=== PATIENT | male | born 1955 | race Caucasian/White ===

== ENCOUNTER 2016-11-25 19:49 | Inpatient (IN) | payer MEDICAID ==
[~2016-11-25] VITALS: Ht 167.6 cm; Wt 62.4 kg
[2016-11-25 19:40] VITALS: O2SAT 94
[~2016-11-25 19:49] MED LIST: CIPR500T4 PO; CYCL-36 PO; DILA2TAB2 OR; TRAM50TA PO
[2016-11-25] MEDS ORDERED: LIDOCAINE 2%/EPINEPHrine 1:100,000 50ML MDV ONE (20:18)
[2016-11-25] MEDS ORDERED: SUCCINYLCHOLINE CHLORIDE 200 MG/10 ML VIAL ONE (20:19)
[2016-11-25] MEDS ORDERED: ETOMIDATE 20 MG/10 ML VIAL ONE (20:19)
[2016-11-25 20:25] LABS: HEMATOCRIT 37.8 % (39.0-51.0); MEAN CELL VOLUME 105.8 FL (80.0-100.0); MEAN CORPUSCULAR HEMOGLOBIN 37.7 PG (27.0-34.0); MEAN CORPUSCULAR HGB CONC 35.6 % (32.0-36.0); PLATELET COUNT 195 TH/MM3 (150-450); RED BLOOD COUNT 3.57 MIL/MM3 (4.50-5.90); WHITE BLOOD COUNT 19.5 TH/MM3 (4.0-11.0)
--- NOTE | 2016-11-25 20:25 | RADRPT ---
EXAM DATE/TIME: 11/25/2016 19:44 [facility] COMPARISON: No previous studies available for comparison. INDICATIONS : Trauma alert, fall off ladder. MEDICAL HISTORY : None. SURGICAL HISTORY : None. ENCOUNTER: Initial ACUITY: 1 day PAIN SCORE: 10/10 LOCATION: Bilateral pelvis. FINDINGS: There are fractures of the left side of the sacrum and bilateral superior and inferior pubic rami. Di splacement appears minimal to mild. No fracture or subluxation seen of either hip. CONCLUSION: Bilateral pubic rami and left sacral fractures. Neel Moyer MD on November 25, 2016 at 20:22 Board Certified Radiologist. This report was verified electronically.
--- NOTE | 2016-11-25 20:26 | RADRPT ---
EXAM DATE/TIME: 11/25/2016 19:44 [facility] COMPARISON: No previous studies available for comparison. INDICATIONS : Trauma alert, fall off ladder. MEDICAL HISTORY : None. SURGICAL HISTORY : None. ENCOUNTER: Initial ACUITY: 1 day PAIN SCORE: 10/10 LOCATION: Bilateral chest FINDINGS: There are fractures posteriorly of the left sixth, seventh, eighth and ninth ribs. The left sixth and seventh rib fractures are considerably displaced superiorly. There is consolidation/contusion of the left lung base. Right lung clear. I don't clearly see a pneumothorax on either side. Chest CT to fol low. CONCLUSION: Multiple posterior left rib fractures with a left base parenchymal contusion. Neel Moyer MD on November 25, 2016 at 20:23 Board Certified Radiologist. This report was verified electronically.
[2016-11-25 20:27] LABS: I-STAT POTASSIUM 3.6 MMOL/L (3.5-4.9)
[2016-11-25 20:28] LABS: HEMO FLAGS AUTO DIFF
--- NOTE | 2016-11-25 20:30 | RADRPT ---
EXAM DATE/TIME: 11/25/2016 20:06 [facility] COMPARISON: No previous studies available for comparison. INDICATIONS : Trauma, fall from twenty feet. RADIATION DOSE: 52.17 CTDIvol (mGy) MEDICAL HISTORY : Non-responsive. SURGICAL HISTORY : Non-responsive. ENCOUNTER: Initial ACUITY: 1 day PAIN SCALE: Non-responsive LOCATION: cranial TECHNIQUE: Multiple contiguous axial images were obtained of the head. Using automated exposure control and adj ustment of the mA and/or kV according to patient size, radiation dose was kept as low as reasonably a chievable to obtain optimal diagnostic quality images. FINDINGS: Study is motion degraded. CEREBRUM: The ventricles are normal for age. No evidence of midline shift, mass lesion, hemorrhage or acute in farction. No extra-axial fluid collections are seen. POSTERIOR FOSSA: The cerebellum and brainstem are intact. The 4th ventricle is midline. The cerebellopontine angle i s unremarkable. EXTRACRANIAL: The visualized portion of the orbits is intact. SKULL: The calvaria is intact. No evidence of skull fracture. CONCLUSION: Motion degraded study without convincing evidence of acute intracranial hemorrhage. Followup noncontr asted head CT suggested in 24 hours. Neel Moyer MD on November 25, 2016 at 20:28 Board Certified Radiologist. This report was verified electronically.
[2016-11-25] MEDS ORDERED: IOHEXOL 350 MG/ML 10 ML VIAL (for RAD DIAG) IV ONE (20:32)
--- NOTE | 2016-11-25 20:35 | RADRPT ---
EXAM DATE/TIME: 11/25/2016 20:06 [facility] COMPARISON: No previous studies available for comparison. INDICATIONS : Trauma alert; fall from twenty feet. RADIATION DOSE: 19.10 CTDIvol (mGy) MEDICAL HISTORY : Non-responsive. SURGICAL HISTORY : Fusion, cervical. ENCOUNTER: Initial ACUITY: 1 day PAIN SCALE: Non-responsive LOCATION: neck TECHNIQUE: Volumetric scanning of the cervical spine was performed. Multiplanar reconstructions in the sagittal, coronal and oblique axial planes were performed. Using automated exposure control and adjustment o f the mA and/or kV according to patient size, radiation dose was kept as low as reasonably achievable to obtain optimal diagnostic quality images. FINDINGS: No fracture or subluxation demonstrated of the cervical spine. Vertebral bodies have normal height. Patient has had discectomy and fusion procedure with anterior instrumentation at C3/C4, C4/C5 and C5/ C6, each level is solidly fused in normal alignment. Severe disc space narrowing with a very large posterior disc osteophyte complex seen at C6/C7 causing severe spinal stenosis. There is severe bilateral foraminal stenosis at this level as well. Small posterior disc protrusion seen at C7/T1 with mild spinal stenosis, age indeterminate. CONCLUSION: 1. No fracture or subluxation of the cervical spine. 2. Degenerative changes with a chronic appearing disc osteophyte complex and uncovertebral/facet oste oarthritis causing severe spinal and bilateral foraminal stenosis at C6-C7. 3. Small, age-indeterminate posterior disc protrusion at C7/T1 causing mild spinal stenosis. Neel Moyer MD on November 25, 2016 at 20:31 Board Certified Radiologist. This report was verified electronically.
[2016-11-25 20:37] LABS: APTT (PATIENT) 22.6 SEC (24.3-30.1); PROTHROMBIN TIME - PATIENT 11.4 SEC (9.8-11.6)
[2016-11-25] MEDS: LACTATED RINGER'S 1000 ML INJ 1,000 ML IV SCH (20:40)
[2016-11-25] MEDS ORDERED: MAGNESIUM HYDROXIDE SUSP 30 ML CUP PO PRN (20:45)
[2016-11-25] MEDS ORDERED: CHLORHEXIDINE GLUCONATE 2 % 1 PACK (2 CLOTHS) TOP PRN (20:45)
[2016-11-25] MEDS ORDERED: MISCELLANEOUS NURSING INFORMATION XX SCH (20:45)
--- NOTE | 2016-11-25 20:49 | RADRPT ---
EXAM DATE/TIME: 11/25/2016 20:10 [facility] COMPARISON: No previous studies available for comparison. INDICATIONS : Trauma alert; fall from twenty feet. IV CONTRAST: 100 cc Omnipaque 350 (iohexol) IV ; Cumulative dose for multiple exams. RADIATION DOSE: 17.57 CTDIvol (mGy) ; Combined studies - Thorax/Abdomen/Pelvis MEDICAL HISTORY : Non-responsive. SURGICAL HISTORY : Non-responsive. ENCOUNTER: Initial ACUITY: 1 day PAIN SCALE: Non-responsive LOCATION: chest TECHNIQUE: Volumetric scanning of the chest was performed. Using automated exposure control and adjustment of t he mA and/or kV according to patient size, radiation dose was kept as low as reasonably achievable to obtain optimal diagnostic quality images. FINDINGS: Fractures posteriorly and posterolaterally of the left fifth through 12th ribs. Seventh through 10th are considerably displaced. There is a parenchymal contusion of the left lower lobe. A moderate left pneumothorax is present. No tension. Only a small left hemothorax. Cardiomediastinum/great vessels within normal limits. Right lung clear. No right pneumothorax. CONCLUSION: Multiple left rib fractures with moderate left pneumothorax, tiny left hemothorax and probable contus ion of the left lower lobe. Neel Moyer MD on November 25, 2016 at 20:45 Board Certified Radiologist. This report was verified electronically.
[2016-11-25 20:54] LABS: BANDS 9 % (0-6); EOSINOPHILS 2 % (0-4); METAMYELOCYTES 1 % (0-1); NEUTROPHIL # MANUAL DIFF 14.8 TH/MM3 (1.8-7.7); POLYS (SEG NEUTROPHILS) 66 % (16-70); WBC DIFF SAMPLE 100
--- NOTE | 2016-11-25 20:54 | RADRPT ---
EXAM DATE/TIME: 11/25/2016 20:10 [facility] COMPARISON: No previous studies available for comparison. INDICATIONS : Trauma, fall from twenty feet. IV CONTRAST: 100 cc Omnipaque 350 (iohexol) IV ORAL CONTRAST: No oral contrast ingested. RADIATION DOSE: 17.57 CTDIvol (mGy) ; Combined studies - Thorax/Abdomen/Pelvis MEDICAL HISTORY : Non-responsive. SURGICAL HISTORY : Non-responsive. ENCOUNTER: Initial ACUITY: 1 day PAIN SCALE: Non-responsive LOCATION: abdomen TECHNIQUE: Volumetric scanning of the abdomen and pelvis was performed. Using automated exposure control and ad justment of the mA and/or kV according to patient size, radiation dose was kept as low as reasonably achievable to obtain optimal diagnostic quality images. FINDINGS: Liver, spleen, pancreas, adrenal glands and kidneys are all intact. No viscus rupture. The stomach is distended with fluid and debris. There are multiple left lower rib fractures. The left sacral ala and body has comminuted, mildly disp laced fracturing and extending to the left S2/3 foramen which appears mildly displaced. There are robyn ateral superior and inferior pubic ramus fractures. The left pubic bone fracture extends into the lef t acetabulum but nondisplaced. There is a small presacral and left iliopsoas hematoma. No intraperito flori fluid demonstrated. CONCLUSION: 1. No evidence of acute visceral or injury. 2. Fractures of the left body and ala of the sacrum with mildly displaced fracturing in the region of the left S2/S3 foramen. 3. Bilateral superior and inferior pubic rami fractures and a nondisplaced fracture of the left aceta bulum. 4. Small presacral and left iliopsoas hematomas. I don't see active bleeding. Neel Moyer MD on November 25, 2016 at 20:49 Board Certified Radiologist. This report was verified electronically.
[2016-11-25 20:56] LABS: OVALOCYTES 1+ (NORMAL); PLATELET ESTIMATE SMEAR NORMAL (NORMAL); PLATELET MORPHOLOGY NORMAL (NORMAL); SCAN/DIFF FINAL DIFF MANUAL; STOMATOCYTES 2+ (NORMAL)
--- NOTE | 2016-11-25 20:58 | RADRPT ---
EXAM DATE/TIME: 11/25/2016 20:10 [facility] COMPARISON: No previous studies available for comparison. INDICATIONS : Trauma alert; fall from twenty feet. RADIATION DOSE: CTDIvol (mGy) ; Reconstructed from previous dataset MEDICAL HISTORY : Non-responsive. SURGICAL HISTORY : None. ENCOUNTER: Initial ACUITY: 1 day PAIN SCALE: Non-responsive LOCATION: Paraspinal TECHNIQUE: Volumetric scanning of the thoracic spine was performed. Multiplanar reconstructions in the sagittal , coronal and oblique axial planes were performed. Using automated exposure control and adjustment o f the mA and/or kV according to patient size, radiation dose was kept as low as reasonably achievable to obtain optimal diagnostic quality images. FINDINGS: Left fifth through 12th ribs are fractured posteriorly and please refer to the chest CT report. The l eft transverse process of T12 has a minimally displaced fracture, series 304 image 149 and series 3 a 2 image 48. This extends into the left facet joint. Thoracic spine vertebral bodies are intact. No subluxations. No epidural hematoma seen. No fracture-a ssociated foraminal or spinal stenosis demonstrated. CONCLUSION: Left T12 transverse process and facet fracture, minimally displaced. Multiple left posterior rib frac tures and placed refer to the chest CT report. Thoracic vertebral bodies are intact. No subluxations. Neel Moyer MD on November 25, 2016 at 20:55 Board Certified Radiologist. This report was verified electronically.
--- NOTE | 2016-11-25 20:59 | PD ---
HPI Chief Complaint: Trauma (Alert) Time Seen by Provider: 20:42 Travel History International Travel<30 days: No Contact w/Intl Traveler<30days: No Traveled to known affect area: No History of Present Illness HPI Patient in his 60s was brought in as a trauma alert by air 1 helicopter from the scene. Patient was intoxicated and was up on a ladder about 20 feet when somehow he lost his footing and fell on his back on the ground. Unknown loss of consciousness although the report from the paramedics came as negative loss of consciousness. Patient does not remember. He was intoxicated. Patient was hemodynamically stable the entire transportation and reported GCS was 15. However patient was complaining of severe lower back pain and left-sided chest wall pain. Patient has history of chronic back pain and neck injury and surgery. I was present in the room waiting for the patient's arrival based on the radio call. When patient arrived GCS was 14. He was otherwise hemodynamically stable. He was and significant pain complaining of lower back and left sided pain. As per my understanding patient did not receive any pain medications en route. Air medic also said that his oxygen saturation dropped down to 85% on nasal cannula and he was switched to a nonrebreather after which his sats stayed above 95%. [facility] Past Medical History Narrative Medical List of his past medical history is reviewed from the nursing note. Herniated Disk: Yes Past Surgical History Other Surgery: Yes (cervical spine surgery) Social History Alcohol Use: Yes Tobacco Use: Yes Allergies-Medications (Allergen,Severity, Reaction): Coded Allergies: Penicillin (Verified Allergy, Unknown, 11/25/16) Comments List of his allergies reviewed from the nursing note. Narrative Medication Unknown Review of Systems ROS Limitations: Altered Mental Status Except as stated in HPI: all other systems reviewed are Neg Physical Exam Exam Limitations: Intoxication Narrative GENERAL: Slightly altered mental status but answering questions appropriately. Significant distress. Backboarded and collared. SKIN: Warm and dry. Multiple small superficial abrasions, dirty skin HEAD: Atraumatic. Normocephalic. EYES: Pupils equal and round. No scleral icterus. No injection or drainage. ENT: No nasal bleeding or discharge. Mucous membranes pink and moist. NECK: Trachea midline. No JVD. CARDIOVASCULAR: Regular rate and rhythm. No murmur appreciated. RESPIRATORY: No accessory muscle use. Clear to auscultation. Breath sounds equal bilaterally. Tenderness left lateral chest wall with crepitus GASTROINTESTINAL: Abdomen soft, non-tender, nondistended. Hepatic and splenic margins not palpable. MUSCULOSKELETAL: No obvious deformities. No clubbing. No cyanosis. No edema. Point tenderness in the thoracic and lumbar area. NEUROLOGICAL: Awake and alert. No obvious cranial nerve deficits. Motor grossly within normal limits. Normal speech. PSYCHIATRIC: Appropriate mood and affect; insight and judgment normal. Data Data Last Documented VS Vital Signs Date Time Temp Pulse Resp B/P Pulse Ox O2 Delivery O2 Flow Rate FiO2 11/25/16 19:40 94 6.00 11/25/16 19:40 Nasal Cannula Orders I-Stat Profile (11/25/16 19:51) I-Stat Creatinine (11/25/16 19:51) Complete Blood Count With Diff (11/25/16 19:51) Prothrombin Time / Inr (Pt) (11/25/16 19:51) Act Partial Throm Time (Ptt) (11/25/16 19:51) Type And Screen (11/25/16 19:51) Chest, Single Ap (11/25/16 19:51) Pelvis, Ap Only (Routine) (11/25/16 19:51) Ct Brain W/O Iv Contrast(Rout) (11/25/16 19:51) Ct Cerv Spine W/O Contrast (11/25/16 19:51) Ct Abd/Pel W Iv Contrast(Rout) (11/25/16 19:51) Ct Thorax/ Chest W Iv Contrast (11/25/16 19:51) Iv Access Insert/Monitor (11/25/16 19:51) Ecg Monitoring (11/25/16 19:51) Oximetry (11/25/16 19:51) Oxygen Administration (11/25/16 19:51) Fentanyl Inj (Fentanyl Inj) (11/25/16 19:57) Lidocai-Epi 2%-1:100,000 Inj (Xylocaine- (11/25/16 20:18) Etomidate Inj (Amidate Inj) (11/25/16 20:19) Succinylcholine Inj (Quelicin Inj) (11/25/16 20:19) Fentanyl Inj (Fentanyl Inj) (11/25/16 20:21) Ct Lumb Spine W/O Contrast (11/25/16 ) Ct Thor Spine W/O Contrast (11/25/16 ) Fentanyl Inj (Fentanyl Inj) (11/25/16 20:30) Iohexol 350 Inj (Omnipaque 350 Inj) (11/25/16 20:32) Chest, Single Ap (11/25/16 ) Admit Order (Ed Use Only) (11/25/16 20:42) Labs Laboratory Tests Test 11/25/16 19:50 White Blood Count 19.5 TH/MM3 Red Blood Count 3.57 MIL/MM3 Hemoglobin 13.5 GM/DL Bedside Hemoglobin 13.3 G/DL Hematocrit 37.8 % Bedside Hematocrit 39.0 % Mean Corpuscular Volume 105.8 FL Mean Corpuscular Hemoglobin 37.7 PG Mean Corpuscular Hemoglobin 35.6 % Concent Red Cell Distribution Width 12.0 % Platelet Count 195 TH/MM3 Mean Platelet Volume 8.9 FL Neutrophils (%) (Auto) % Lymphocytes (%) (Auto) % Monocytes (%) (Auto) % Eosinophils (%) (Auto) % Basophils (%) (Auto) % Neutrophils # (Auto) TH/MM3 Lymphocytes # (Auto) TH/MM3 Monocytes # (Auto) TH/MM3 Eosinophils # (Auto) TH/MM3 Basophils # (Auto) TH/MM3 CBC Comment AUTO DIFF Differential Total Cells 100 Counted Neutrophils % (Manual) 66 % Band Neutrophils % 9 % Lymphocytes % 15 % Monocytes % 7 % Eosinophils % 2 % Neutrophils # (Manual) 14.8 TH/MM3 Metamyelocytes 1 % Differential Comment FINAL DIFF MANUAL Platelet Estimate NORMAL Platelet Morphology Comment NORMAL Ovalocytes 1+ Stomatocytes 2+ Prothrombin Time 11.4 SEC Prothromb Time International 1.0 RATIO Ratio Activated Partial 22.6 SEC Thromboplast Time Bedside Sodium 136 MMOL/L Bedside Potassium 3.6 MMOL/L Bedside Chloride 97 MMOL/L Bedside Blood Urea Nitrogen 11 MG/DL Bedside Creatinine 0.7 MG/DL Bedside Glucose 149 MG/DL Blood Type O POSITIVE Antibody Screen NEGATIVE [facility] Medical Screen Exam Complete: Yes Emergency Medical Condition: Yes Medical Record Reviewed: Yes EKG Prior to Arrival: Yes Differential Diagnosis Intracranial bleed, cervical spine fracture, intrathoracic injury, intra- abdominal injury Narrative Course 8:30 PM I examined the patient alongside with the surgeon. Portable chest x- ray and pelvic x-ray was reviewed. Patient remained hemodynamically stable the entire time. Patient was taken over to the CT once he was rolled off the backboard and spine was palpated by the trauma surgeon. I went along with the patient to the CT since my FAST ultrasound was positive and I was concerned about patient's hemodynamic status. CT scan showed a large anterior left sided traumatic pneumothorax with multiple rib fractures and pelvic fracture with retroperitoneal hematoma. Patient was brought back to the trauma bay and plan was to put the chest tube. Patient was verbally told about the CAT scan findings and the need for the chest tube placement. Patient verbally agreed. Once again he remained hemodynamically stable. He was given 2 doses of IV 50 g of fentanyl for pain management. Once the chest tube was inserted and secured and attached to the Pleur-evac portable chest x-ray was taken for chest tube placement. I'm waiting for the portable chest x-ray report. Patient has been admitted to the ICU under the trauma surgeon service. 8:59 PM I just reviewed the chest x-ray and seems like the placement is good. Critical Care Narrative Aggregate critical care time was 45 minutes. Time to perform other separately billable procedures was not included in the critical care time. My time did not include minutes spent treating any other patients simultaneously or on activities that did not directly contribute to the patient's treatment. The services I provided to this patient were to treat and/or prevent clinically significant deterioration that could result in: Trauma alert, follows for more than 20 feet height, multiple rib fractures, traumatic pneumothorax, pelvic fractures I provided critical care services requiring my management, as noted below: Chart data review, documentation time, medication orders and management, vital sign assessments/reviewing monitor data, ordering and reviewing lab tests, ordering and interpreting/reviewing x-rays and diagnostic studies, care of the patient and discussion of the patient with the admitting physicians. Procedures Procedure Narrative CHEST TUBE THORACOSTOMY: The 32-gauge chest was prepped with Betadine and sterilely draped. The area of the fifth intercostal interspace was infiltrated with 1% lidocaine plain. A 5 centimeter incision was made with a scalpel at the fifth intercostal space. Blunt dissection to the fourth intercostal interspace performed and the pleura was punctured with immediate auguste of air. Finger was inserted in the space and thoracostomy tube was placed, directed posteriorly and superiorly. Tube draining well. The thoracostomy tube was secured with suture. Sterile seal dressing placed. Patient tolerated procedure well. Trauma Alert - Level One Trauma Alert Level One: Full trauma team activate, Patient evaluated, Trauma surgeon summoned Time Surgeon Summoned: 19:[address] Oliver Diagnosis Diagnosis: Primary Impression: Fall from ladder Qualified Code: W11.XXXA - Fall from ladder, initial encounter Additional Impressions: Traumatic pneumothorax Qualified Code: S27.0XXA - Traumatic pneumothorax, initial encounter Pelvic fracture Qualified Code: S32.810A - Multiple closed fractures of pelvis with stable disruption of pelvic [place], initial encounter Multiple rib fractures Qualified Code: S22.42XA - Closed fracture of multiple ribs of left side, initial encounter Lung contusion Qualified Code: S27.321A - Contusion of left lung, initial encounter Admitting Physician Requests: Admit Joon Hampton MD Nov 25, 2016 20:59
[2016-11-25] MEDS: DOCUSATE SODIUM 100 MG CAP PO SCH (21:00)
--- NOTE | 2016-11-25 21:03 | RADRPT ---
EXAM DATE/TIME: 11/25/2016 20:10 [facility] COMPARISON: No previous studies available for comparison. INDICATIONS : Trauma alert; fall from twenty feet. RADIATION DOSE: CTDIvol (mGy) ; Reconstructed from previous dataset MEDICAL HISTORY : Non-responsive. SURGICAL HISTORY : Non-responsive. ENCOUNTER: Initial ACUITY: 1 day PAIN SCALE: Non-responsive LOCATION: Paraspinal TECHNIQUE: Volumetric scanning of the lumbar spine was performed. Multiplanar reconstructions in the sagittal, coronal and oblique axial planes were performed. Using automated exposure control and adjustment of the mA and/or kV according to patient size, radiation dose was kept as low as reasonably achievable t o obtain optimal diagnostic quality images. FINDINGS: Left transverse processes are fractured from L1-L4. All minimally to mildly displaced. Lumbar vertebr al bodies are intact and normally aligned. No fracture-associated foraminal or spinal stenosis demons trated. Moderate disc space narrowing with vacuum phenomena seen at L4/L5. There is a broad but mainly right paracentral extruded disc fragment, age-indeterminate but probably nonacute. There is right lateral r ecess and bilateral foraminal stenosis at L4/L5. Small, broad posterior disc protrusions are seen at L2/L3 and L5/S1, probably nonacute. CONCLUSION: 1. Minimally to mildly displaced left transverse process fractures of L1-L4. 2. Multilevel degenerative changes as above. Large right paracentral disc fragment at L4/L5, probably nonacute. Neel Moyer MD on November 25, 2016 at 20:58 Board Certified Radiologist. This report was verified electronically.
--- NOTE | 2016-11-25 21:15 | HHI.HP ---
HPI Service Critical Care Medicine Primary Care Physician Unknown Admission Diagnosis Fall, Traumatic PTX, Pelvic fx Diagnosis: Chief Complaint: Back pain Travel History International Travel<30 Days: No Contact w/Intl Traveler <30 Da: No Traveled to Known Affected Are: No History of Present Illness 58-year-old gentleman reportedly fell 20 feet off of a ladder onto his back without loss of consciousness. He may have been drinking. He was brought in as a trauma alert due to his age and the height of his fall. Patient arrived alert with mild confusion his Scott Coma Scale was 14 complaining of back pain and left chest pain. Review of Systems Constitutional: DENIES: Diaphoretic episodes, Fatigue, Fever, Weight gain, Weight loss, Chills, Dizziness, Change in appetite, Night Sweats Endocrine: DENIES: Heat/cold intolerance, Polydipsia, Polyuria, Polyphagia Eyes: DENIES: Blurred vision, Diplopia, Eye inflammation, Eye pain, Vision loss , Photosensitivity, Double Vision Ears, nose, mouth, throat: DENIES: Tinnitus, Hearing loss, Vertigo, Nasal discharge, Oral lesions, Throat pain, Hoarseness, Ear Pain, Running Nose, Epistaxis, Sinus Pain, Toothache, Odynophagia Respiratory: COMPLAINS OF: Shortness of breath Cardiovascular: COMPLAINS OF: Chest pain, DENIES: Palpitations, Syncope, Dyspnea on Exertion, PND, Lower Extremity Edema, Orthopnea, Claudication Gastrointestinal: COMPLAINS OF: Abdominal pain, DENIES: Black stools, Bloody stools, Constipation, Diarrhea, Nausea, Vomiting, Difficulty Swallowing, Anorexia Genitourinary: DENIES: Sexual dysfunction, Urinary frequency, Urinary incontinence, Urgency, Hematuria, Dysuria, Nocturia, Penile Discharge, Testicular Pain, Testicular Swelling Musculoskeletal: COMPLAINS OF: Muscle aches (back pain, left chest wall pain) Integumentary: DENIES: Abnormal pigmentation, Nail changes, Pruritus, Rash Hematologic/lymphatic: DENIES: Bruising, Lymphadenopathy Immunologic/allergic: DENIES: Eczema, Urticaria Neurologic: DENIES: Abnormal gait, Headache, Localized weakness, Paresthesias, Seizures, Speech Problems, Tremor, Poor Balance Psychiatric: DENIES: Anxiety, Confusion, Mood changes, Depression, Hallucinations, Agitation, Suicidal Ideation, Homicidal Ideation, Delusions Past Family Social History Allergies: Coded Allergies: Penicillin (Verified Allergy, Unknown, 11/25/16) Past Medical History Hypertension Past Surgical History Patient states he's had 5 spine surgeries Reported Medications Patient denies daily medications Family History Reviewed and not relevant Social History Smoker alcohol use denies drug use Physical Exam Physical Exam Alert and oriented in mild distress due to pain Head is atraumatic normocephalic pupils equal round reactive to light extraocular movements intact sclerae nonicteric conjunctiva was pink Neck is soft trachea is midline he has no cervical tenderness to palpation Lungs clear to auscultation bilaterally he has tenderness to his left chest wall , no crepitus to palpation Abdomen soft mild tenderness no peritonitis, umbilical hernia Pelvis stable with mild tenderness on the left, femoral pulses palpable bilaterally Dorsalis pedis pulses palpable bilaterally no evidence of trauma to his extremities Skin shows mild bruising of various nontraumatic lesions Mood and affect are appropriate Cranial nerves II through XII appear grossly intact no focal neurologic deficit Laboratory Laboratory Tests Test 11/25/16 19:50 White Blood Count 19.5 Red Blood Count 3.57 Hemoglobin 13.5 Bedside Hemoglobin 13.3 Hematocrit 37.8 Bedside Hematocrit 39.0 Mean Corpuscular Volume 105.8 Mean Corpuscular Hemoglobin 37.7 Mean Corpuscular Hemoglobin 35.6 Concent Red Cell Distribution Width 12.0 Platelet Count 195 Mean Platelet Volume 8.9 Neutrophils (%) (Auto) Lymphocytes (%) (Auto) Monocytes (%) (Auto) Eosinophils (%) (Auto) Basophils (%) (Auto) Neutrophils # (Auto) Lymphocytes # (Auto) Monocytes # (Auto) Eosinophils # (Auto) Basophils # (Auto) CBC Comment AUTO DIFF Differential Total Cells 100 Counted Neutrophils % (Manual) 66 Band Neutrophils % 9 Lymphocytes % 15 Monocytes % 7 Eosinophils % 2 Neutrophils # (Manual) 14.8 Metamyelocytes 1 Differential Comment FINAL DIFF MANUAL Platelet Estimate NORMAL Platelet Morphology Comment NORMAL Ovalocytes 1+ Stomatocytes 2+ Prothrombin Time 11.4 Prothromb Time International 1.0 Ratio Activated Partial 22.6 Thromboplast Time Bedside Sodium 136 Bedside Potassium 3.6 Bedside Chloride 97 Bedside Blood Urea Nitrogen 11 Bedside Creatinine 0.7 Bedside Glucose 149 Blood Type O POSITIVE Result Diagram: 11/25/161949 Imaging Last Impressions Pelvis X-Ray 11/25/161950 Signed Impressions: Service Date/Time: November 19:44 - CONCLUSION: Bilateral pubic rami and left sacral fractures. Neel Moyer MD Head CT 11/25/161950 Signed Impressions: Service Date/Time: November 20:06 - CONCLUSION: Motion degraded study without convincing evidence of acute intracranial hemorrhage. Followup noncontrasted head CT suggested in 24 hours. Neel Moyer MD Chest X-Ray 11/25/161950 Signed Impressions: Service Date/Time: November 19:44 - CONCLUSION: Multiple posterior left rib fractures with a left base parenchymal contusion. Neel Moyer MD Chest CT 11/25/161950 Signed Impressions: Service Date/Time: November 20:10 - CONCLUSION: Multiple left rib fractures with moderate left pneumothorax, tiny left hemothorax and probable contusion of the left lower lobe. Neel Moyer MD Cervical Spine CT 11/25/161950 Signed Impressions: Service Date/Time: November 20:06 - CONCLUSION: 1. No fracture or subluxation of the cervical spine. 2. Degenerative changes with a chronic appearing disc osteophyte complex and uncovertebral/facet osteoarthritis causing severe spinal and bilateral foraminal stenosis at C6-C7. 3. Small, age-indeterminate posterior disc protrusion at C7/T1 causing mild spinal stenosis. Neel Moyer MD Abdomen/Pelvis CT 11/25/161950 Signed Impressions: Service Date/Time: November 20:10 - CONCLUSION: 1. No evidence of acute visceral or injury. 2. Fractures of the left body and ala of the sacrum with mildly displaced fracturing in the region of the left S2/S3 foramen. 3. Bilateral superior and inferior pubic rami fractures and a nondisplaced fracture of the left acetabulum. 4. Small presacral and left iliopsoas hematomas. I don't see active bleeding. Neel Moyer MD Assessment and Plan Assessment and Plan Multiple left-sided rib fractures with hemopneumothorax - Chest tube placed in the trauma bay with x-ray confirming good position Multiple pelvic fractures including sacral fracture and nondisplaced acetabular fracture - No active bleeding evident on CT, we will monitor in the ICU and consult orthopedic surgery in the morning Plan - Admit to trauma ICU for serial H and H and continuous hemodynamic monitoring - Nothing by mouth with IV pain control, until able to take by mouth Salma's critically ill with hemopneumothorax and trophic fractures with acute blood loss anemia. Total critical care time evaluation and management of his trauma activation was 65 minutes Code Status Full code Discussed Condition With Patient, ED physician, trauma team, ICU charge nurse Patrick Oliver MD Nov 25, 2016 21:15
--- NOTE | 2016-11-25 21:18 | RADRPT ---
EXAM DATE/TIME: 11/25/2016 20:51 [facility] COMPARISON: CT THORAX W CONTRAST, November 25, 2016, 20:10. INDICATIONS : Chest tube placement. MEDICAL HISTORY : None. SURGICAL HISTORY : None. ENCOUNTER: Subsequent ACUITY: 1 day PAIN SCORE: 10/10 LOCATION: Left chest. FINDINGS: Large caliber left chest tube has been placed. No perceptible pneumothorax. Multiple posterior and po sterolateral left rib fractures are again seen. There is a parenchymal contusion of the left lung bas e not significantly changed. Right lung remains clear. CONCLUSION: Left chest tube placed. No pneumothorax seen. Neel Moyer MD on November 25, 2016 at 21:16 Board Certified Radiologist. This report was verified electronically.
[2016-11-25 21:26] VITALS: O2SAT 97
[2016-11-25] MEDS: HYDROmorphone HCL PF 1 MG/ML VIAL IVP PRN ×3 (22:00→23:27)
[2016-11-25] MEDS: ENOXAPARIN SODIUM 30 MG/0.3 ML SYRINGE SQ SCH (22:00)
[2016-11-25] MEDS: ACETAMINOPHEN/HYDROcodone 325 MG/10 MG TAB PO PRN (22:43)
[2016-11-25] MEDS ORDERED: PILL SPLITTER OTHER PRN (22:45)
[2016-11-25] MEDS: MULTIVITAMIN INJ 10 ML, THIAMINE INJ 100 MG, FOLIC ACID INJ 1 MG in SODIUM CHLORID 0.9%... IV SCH (22:48)
[2016-11-25] MEDS: METHOCARBAMOL 500 MG TAB PO PRN (23:26)
--- NOTE | 2016-11-25 23:38 | PD.CONS ---
HPI Service Critical Care Medicine Consult Requested By Primary Care Physician Unknown History of Present Illness 58 year old gentleman was brought in as a trauma alert by air 1 helicopter from the scene. Patient was intoxicated with alcohol and was up on a ladder about 20 feet when somehow he lost his footing and fell on his back on the ground. Per paramedics negative loss of consciousness. Patient was hemodynamically stable the entire transportation and reported GCS was 15. However patient was complaining of severe lower back pain and left-sided chest wall pain. Patient has history of chronic back pain and neck injury and surgery. Review of Systems Constitutional: DENIES: Diaphoretic episodes, Fatigue, Fever, Weight gain, Weight loss, Chills, Dizziness, Change in appetite, Night Sweats Endocrine: DENIES: Heat/cold intolerance, Polydipsia, Polyuria, Polyphagia Eyes: DENIES: Blurred vision, Diplopia, Eye inflammation, Eye pain, Vision loss , Photosensitivity, Double Vision Ears, nose, mouth, throat: DENIES: Tinnitus, Hearing loss, Vertigo, Nasal discharge, Oral lesions, Throat pain, Hoarseness, Ear Pain, Running Nose, Epistaxis, Sinus Pain, Toothache, Odynophagia Respiratory: DENIES: Apneas, Cough, Snoring, Wheezing, Hemoptysis, Sputum production, Shortness of breath Cardiovascular: COMPLAINS OF: Chest pain, DENIES: Palpitations, Syncope, Dyspnea on Exertion, PND, Lower Extremity Edema, Orthopnea, Claudication Gastrointestinal: DENIES: Abdominal pain, Black stools, Bloody stools, Constipation, Diarrhea, Nausea, Vomiting, Difficulty Swallowing, Anorexia Genitourinary: DENIES: Sexual dysfunction, Urinary frequency, Urinary incontinence, Urgency, Hematuria, Dysuria, Nocturia, Penile Discharge, Testicular Pain, Testicular Swelling Musculoskeletal: COMPLAINS OF: Muscle aches, Back pain, DENIES: Joint pain, Stiffness, Joint Swelling, Neck pain Integumentary: DENIES: Abnormal pigmentation, Nail changes, Pruritus, Rash Hematologic/lymphatic: DENIES: Bruising, Lymphadenopathy Immunologic/allergic: DENIES: Eczema, Urticaria Neurologic: DENIES: Abnormal gait, Headache, Localized weakness, Paresthesias, Seizures, Speech Problems, Tremor, Poor Balance Psychiatric: DENIES: Anxiety, Confusion, Mood changes, Depression, Hallucinations, Agitation, Suicidal Ideation, Homicidal Ideation, Delusions Past Family Social History Allergies: Coded Allergies: Penicillin (Verified Allergy, Unknown, 11/25/16) Past Medical History Hypertension Past Surgical History Multiple back surgeries Active Ordered Medications Current Medications Medications (Trade) Dose Ordered Sig/Jason Route PRN Reason Start Time Stop Time Status Last Admin Dose Admin Lactated Ringer's (Lr 1000 ml Inj) 1,000 ml @ 100 mls/hr Q10H IV 11/25/16 20:40 11/25/16 20:40 IV Flush (NS Flush) 2 ml UNSCH PRN IVF FLUSH AFTER USING IV ACCESS 11/25/16 20:45 Hydromorphone HCl (Dilaudid Pf Inj) 1 mg Q1H PRN IVP BREAKTHROUGH PAIN 11/25/16 20:45 11/25/16 23:27 Enalaprilat (Vasotec Inj) 1.25 mg Q8H PRN IV SBP>180, DBP>95 11/25/16 20:45 Ondansetron HCl (Zofran Inj) 4 mg Q6H PRN IV NAUSEA OR VOMITING 11/25/16 20:45 Enoxaparin Sodium 30 mg 30 mg Q12H SQ 11/25/16 22:00 Multivitamins/ Thiamine HCl/ Folic Acid/Sodium Chloride (Mvi-12 Inj/ Thiamine Inj/ Folvite Inj/NS 500 ml Inj) 511.2 ml @ 125 mls/hr Q24H IV 11/25/16 23:00 11/28/16 03:06 11/25/16 22:48 Docusate Sodium (Colace) 100 mg BID PO 11/25/16 21:00 Magnesium Hydroxide (Milk Of Magnesia Liq) 30 ml Q6H PRN PO CONSTIPATION 11/25/16 20:45 Miscellaneous Information 1 Q361D XX 11/25/16 20:45 11/25/16 20:45 Chlorhexidine Gluconate (Chlorhexidine 2% Cloth) 3 pack Taper DAILY@04 TOP 11/26/16 04:00 11/22/17 03:59 11/26/16 00:46 Chlorhexidine Gluconate (Chlorhexidine 2% Cloth) 3 pack UNSCH PRN TOP HYGIENIC CARE 11/25/16 20:45 Acetaminophen/ Hydrocodone Bitart (Steele 10-325 Mg) 1 tab TID PRN PO PAIN 6-10 11/25/16 22:45 11/25/16 22:43 Methocarbamol (Robaxin) 750 mg TID PRN PO PAIN 6-10 11/25/16 22:45 11/25/16 23:26 Miscellaneous (Pill Splitter) 1 ea UNSCH PRN OTHER SEE LABEL COMMENTS 11/25/16 22:45 Famotidine (Pepcid) 20 mg HS PO 11/26/16 21:00 Family History Noncontributory Social History Drinks smokes cigarettes negative illicit drug abuse Physical Exam Vital Signs Vital Signs Date Time Temp Pulse Resp B/P Pulse Ox O2 Delivery O2 Flow Rate FiO2 11/25/16 21:26 97 Nasal Cannula 5.00 Physical Exam Alert and oriented in mild distress due to pain Head is atraumatic normocephalic pupils equal round reactive to light extraocular movements intact sclerae nonicteric conjunctiva was pink Neck is soft trachea is midline he has no cervical tenderness to palpation Lungs clear to auscultation bilaterally he has tenderness to his left chest wall , no crepitus to palpation Abdomen soft mild tenderness no peritonitis, umbilical hernia Pelvis stable with mild tenderness on the left, femoral pulses palpable bilaterally Dorsalis pedis pulses palpable bilaterally no evidence of trauma to his extremities Skin shows mild bruising of various nontraumatic lesions Mood and affect are appropriate Cranial nerves II through XII appear grossly intact no focal neurologic deficit Laboratory Laboratory Tests Test 11/25/16 11/25/16 19:50 21:28 White Blood Count 19.5 Red Blood Count 3.57 Hemoglobin 13.5 Bedside Hemoglobin 13.3 Hematocrit 37.8 Bedside Hematocrit 39.0 Mean Corpuscular Volume 105.8 Mean Corpuscular Hemoglobin 37.7 Mean Corpuscular Hemoglobin 35.6 Concent Red Cell Distribution Width 12.0 Platelet Count 195 Mean Platelet Volume 8.9 Neutrophils (%) (Auto) Lymphocytes (%) (Auto) Monocytes (%) (Auto) Eosinophils (%) (Auto) Basophils (%) (Auto) Neutrophils # (Auto) Lymphocytes # (Auto) Monocytes # (Auto) Eosinophils # (Auto) Basophils # (Auto) CBC Comment AUTO DIFF Differential Total Cells 100 Counted Neutrophils % (Manual) 66 Band Neutrophils % 9 Lymphocytes % 15 Monocytes % 7 Eosinophils % 2 Neutrophils # (Manual) 14.8 Metamyelocytes 1 Differential Comment FINAL DIFF MANUAL Platelet Estimate NORMAL Platelet Morphology Comment NORMAL Ovalocytes 1+ Stomatocytes 2+ Prothrombin Time 11.4 Prothromb Time International 1.0 Ratio Activated Partial 22.6 Thromboplast Time Bedside Sodium 136 Bedside Potassium 3.6 Bedside Chloride 97 Bedside Blood Urea Nitrogen 11 Bedside Creatinine 0.7 Bedside Glucose 149 Blood Type O POSITIVE Antibody Screen NEGATIVE Nasal Screen MRSA (PCR) NEGATIVE Result Diagram: 11/25/161949 Imaging Last 24 hours Impressions Pelvis X-Ray 11/25/161950 Signed Impressions: Service Date/Time: November 19:44 - CONCLUSION: Bilateral pubic rami and left sacral fractures. Neel Moyer MD Head CT 11/25/161950 Signed Impressions: Service Date/Time: November 20:06 - CONCLUSION: Motion degraded study without convincing evidence of acute intracranial hemorrhage. Followup noncontrasted head CT suggested in 24 hours. Neel Moyer MD Chest X-Ray 11/25/161950 Signed Impressions: Service Date/Time: November 19:44 - CONCLUSION: Multiple posterior left rib fractures with a left base parenchymal contusion. Neel Moyer MD Chest CT 11/25/161950 Signed Impressions: Service Date/Time: November 20:10 - CONCLUSION: Multiple left rib fractures with moderate left pneumothorax, tiny left hemothorax and probable contusion of the left lower lobe. Neel Moyer MD Cervical Spine CT 11/25/161950 Signed Impressions: Service Date/Time: November 20:06 - CONCLUSION: 1. No fracture or subluxation of the cervical spine. 2. Degenerative changes with a chronic appearing disc osteophyte complex and uncovertebral/facet osteoarthritis causing severe spinal and bilateral foraminal stenosis at C6-C7. 3. Small, age-indeterminate posterior disc protrusion at C7/T1 causing mild spinal stenosis. Neel Moyer MD Abdomen/Pelvis CT 11/25/161950 Signed Impressions: Service Date/Time: November 20:10 - CONCLUSION: 1. No evidence of acute visceral or injury. 2. Fractures of the left body and ala of the sacrum with mildly displaced fracturing in the region of the left S2/S3 foramen. 3. Bilateral superior and inferior pubic rami fractures and a nondisplaced fracture of the left acetabulum. 4. Small presacral and left iliopsoas hematomas. I don't see active bleeding. Neel Moyer MD Assessment and Plan Assessment and Plan Multiple left-sided rib fractures - No surgical intervention indicated at this time - Supportive pain control - O2 nasal cannula Hemopneumothorax - Chest tube placed in the trauma bay - x-ray confirming good position Multiple pelvic fractures - including sacral fracture and nondisplaced acetabular fracture - No active bleeding evident on CT, - will monitor in the ICU - Further per orthopedic surgery in the morning DVT GI prophylaxis - Lovenox Pepcid Critical Care: The total critical care time was 35 minutes. Time to perform other separately billable procedures was not included in the critical care time. Sathya Su MD Nov 25, 2016 23:38
[2016-11-26] MEDS: CHLORHEXIDINE GLUCONATE 2 % 1 PACK (2 CLOTHS) TOP SCH ×2 (00:46→20:57)
[2016-11-26] MEDS: HYDROmorphone HCL PF 1 MG/ML VIAL IVP PRN ×13 (01:06→22:49)
[2016-11-26 04:03] LABS: AUTOMATED NEUTROPHIL # 14.1 TH/MM3 (1.8-7.7); BASOPHIL % 0.1 % (0.0-2.0); EOSINOPHIL % 0.1 % (0.0-4.0); HEMATOCRIT 31.9 % (39.0-51.0); HEMO FLAGS DIFF FINAL; LYMPH % 7.1 % (9.0-44.0); LYMPHOCYTE # 1.2 TH/MM3 (1.0-4.8); MEAN CELL VOLUME 106.8 FL (80.0-100.0); MEAN CORPUSCULAR HEMOGLOBIN 37.6 PG (27.0-34.0); MEAN CORPUSCULAR HGB CONC 35.2 % (32.0-36.0); NEUT % 80.7 % (16.0-70.0); PLATELET COUNT 140 TH/MM3 (150-450); RED BLOOD COUNT 2.99 MIL/MM3 (4.50-5.90); RED CELL DISTRIBUTION WIDTH 12.5 % (11.6-17.2); WHITE BLOOD COUNT 17.4 TH/MM3 (4.0-11.0)
[2016-11-26 04:22] LABS: BICARBONATE 19.5 MEQ/L (21.0-32.0); POTASSIUM 4.6 MEQ/L (3.5-5.1)
--- NOTE | 2016-11-26 04:22 | RADRPT ---
EXAM DATE/TIME: 11/26/2016 03:32 [facility] COMPARISON: CHEST SINGLE AP, November 25, 2016, 20:51. INDICATIONS : Evaluate after traumatic injury. MEDICAL HISTORY : Left side chest tube SURGICAL HISTORY : None. ENCOUNTER: Subsequent ACUITY: 3 days PAIN SCORE: Non-responsive. LOCATION: Bilateral chest FINDINGS: Portable AP view of the chest demonstrates a normal-sized cardiac silhouette. Lungs are underinflated and there is opacity at the left lung base. Left chest tube is present and there is a suspected tiny left apical pneumothorax. There is mild left chest wall soft tissue air. CONCLUSION: 1. Left chest tube remains present and there is likely a tiny left apical pneumothorax present. There is stable air along the left chest wall. 2. Stable left lung base airspace opacity representing either atelectasis or consolidation. Neel Mahan MD on November 26, 2016 at 4:19 Board Certified Radiologist. This report was verified electronically.
[2016-11-26] MEDS: ACETAMINOPHEN/HYDROcodone 325 MG/10 MG TAB PO PRN (05:45)
[2016-11-26] MEDS: LACTATED RINGER'S 1000 ML INJ 1,000 ML IV SCH (06:40)
--- NOTE | 2016-11-26 07:13 | PD.ORT.PN ---
Subjective Subjective Remarks s/p fall from ladder back pain and left hip pain Objective Vitals Vital Signs Date Time Temp Pulse Resp B/P Pulse Ox O2 Delivery O2 Flow Rate FiO2 11/25/16 21:26 97 Nasal Cannula 5.00 11/25/16 19:40 94 6.00 I/O 11/25/16 11/25/16 11/25/16 11/26/16 11/26/16 11/26/16 07:00 15:00 23:00 07:00 15:00 23:00 Intake Total 1140 ml Output Total 610 ml Balance 530 ml Intake Oral 250 ml IV Total 890 ml Output Urine Total 550 ml Chest Tube Drainage Total 60 ml Result Diagram: 11/26/16 0247 11/26/16 0247 Other Results Laboratory Tests Test 11/25/16 19:50 Prothrombin Time 11.4 SEC (9.8-11.6) Prothromb Time International 1.0 RATIO Ratio Imaging Last 24 hours Impressions Chest X-Ray 11/26/16 0000 Signed Impressions: Service Date/Time: Saturday, November 26, 2016 03:32 - CONCLUSION: 1. Left chest tube remains present and there is likely a tiny left apical pneumothorax present. There is stable air along the left chest wall. 2. Stable left lung base airspace opacity representing either atelectasis or consolidation. Neel Mahan MD Pelvis X-Ray 11/25/161950 Signed Impressions: Service Date/Time: November 19:44 - CONCLUSION: Bilateral pubic rami and left sacral fractures. Neel Moyer MD Head CT 11/25/161950 Signed Impressions: Service Date/Time: November 20:06 - CONCLUSION: Motion degraded study without convincing evidence of acute intracranial hemorrhage. Followup noncontrasted head CT suggested in 24 hours. Neel Moyer MD Chest X-Ray 11/25/161950 Signed Impressions: Service Date/Time: November 19:44 - CONCLUSION: Multiple posterior left rib fractures with a left base parenchymal contusion. Neel Moyer MD Chest CT 11/25/161950 Signed Impressions: Service Date/Time: November 20:10 - CONCLUSION: Multiple left rib fractures with moderate left pneumothorax, tiny left hemothorax and probable contusion of the left lower lobe. Neel Moyer MD Cervical Spine CT 11/25/161950 Signed Impressions: Service Date/Time: November 20:06 - CONCLUSION: 1. No fracture or subluxation of the cervical spine. 2. Degenerative changes with a chronic appearing disc osteophyte complex and uncovertebral/facet osteoarthritis causing severe spinal and bilateral foraminal stenosis at C6-C7. 3. Small, age-indeterminate posterior disc protrusion at C7/T1 causing mild spinal stenosis. Neel Moyer MD Abdomen/Pelvis CT 11/25/161950 Signed Impressions: Service Date/Time: November 20:10 - CONCLUSION: 1. No evidence of acute visceral or injury. 2. Fractures of the left body and ala of the sacrum with mildly displaced fracturing in the region of the left S2/S3 foramen. 3. Bilateral superior and inferior pubic rami fractures and a nondisplaced fracture of the left acetabulum. 4. Small presacral and left iliopsoas hematomas. I don't see active bleeding. Neel Moyer MD Objective Remarks LLE: pain in back with internal rotation of hip. NVI. no pain in knee or ankle RLE: good motion of hip and knee and ankle. no pain. NVI Assessment & Plan Assessment and Plan 1) Left Sacral Fxs 2) Bilateral sup/inf rami fxs -nonop -WBAT on RLE -TTWB LLE ortho cleared for DC when medically cleared PT ordered Jam Calvillo Nov 26, 2016 07:13
[2016-11-26 08:00] VITALS: BP 125/64; PULSE 93; RESP 18; TEMP 98.3; O2SAT 97
[2016-11-26] MEDS: DOCUSATE SODIUM 100 MG CAP PO SCH ×4 (09:00→19:51)
[2016-11-26] MEDS: ENOXAPARIN SODIUM 30 MG/0.3 ML SYRINGE SQ SCH ×2 (10:00→20:27)
[2016-11-26] MEDS: NICOTINE 14 MG/24 HR PATCH TD SCH (11:07)
[2016-11-26 12:00] VITALS: BP 153/69; PULSE 98; RESP 24; TEMP 98.8; O2SAT 99
[2016-11-26] MEDS: METHOCARBAMOL 500 MG TAB PO PRN ×2 (13:56→22:50)
[2016-11-26] MEDS: ACETAMINOPHEN 1000 MG/100 ML VIAL IV SCH ×3 (14:13→20:30)
--- NOTE | 2016-11-26 14:26 | HHI.CCPN ---
Subjective Remarks/Hospital Course Patient was admitted yesterday after falling over 20 feet from a ladder onto his back. He suffered multiple left-sided rib fractures and a chest tube was placed for a large pneumothorax with a small hemothorax. He also suffered bilateral superior-inferior pubic rami fractures left sacral fracture as well as left acetabular fracture. Pelvic fractures were all considered nonoperative Objective Vital Signs Date Time Temp Pulse Resp B/P Pulse Ox O2 Delivery O2 Flow Rate FiO2 11/26/16 13:12 24 11/26/16 12:00 98.8 98 153/69 99 11/26/16 07:00 Nasal Cannula 2.00 Result Diagram: 11/26/16 0247 11/26/16 0247 Imaging Last 24 hours Impressions Chest X-Ray 11/26/16 0000 Signed Impressions: Service Date/Time: Saturday, November 26, 2016 03:32 - CONCLUSION: 1. Left chest tube remains present and there is likely a tiny left apical pneumothorax present. There is stable air along the left chest wall. 2. Stable left lung base airspace opacity representing either atelectasis or consolidation. Neel Mahan MD Pelvis X-Ray 11/25/161950 Signed Impressions: Service Date/Time: November 19:44 - CONCLUSION: Bilateral pubic rami and left sacral fractures. Neel Moyer MD Head CT 11/25/161950 Signed Impressions: Service Date/Time: November 20:06 - CONCLUSION: Motion degraded study without convincing evidence of acute intracranial hemorrhage. Followup noncontrasted head CT suggested in 24 hours. Neel Moyer MD Chest X-Ray 11/25/161950 Signed Impressions: Service Date/Time: November 19:44 - CONCLUSION: Multiple posterior left rib fractures with a left base parenchymal contusion. Neel Moyer MD Chest CT 11/25/161950 Signed Impressions: Service Date/Time: November 20:10 - CONCLUSION: Multiple left rib fractures with moderate left pneumothorax, tiny left hemothorax and probable contusion of the left lower lobe. Neel Moyer MD Cervical Spine CT 11/25/161950 Signed Impressions: Service Date/Time: November 20:06 - CONCLUSION: 1. No fracture or subluxation of the cervical spine. 2. Degenerative changes with a chronic appearing disc osteophyte complex and uncovertebral/facet osteoarthritis causing severe spinal and bilateral foraminal stenosis at C6-C7. 3. Small, age-indeterminate posterior disc protrusion at C7/T1 causing mild spinal stenosis. Neel Moyer MD Abdomen/Pelvis CT 11/25/161950 Signed Impressions: Service Date/Time: November 20:10 - CONCLUSION: 1. No evidence of acute visceral or injury. 2. Fractures of the left body and ala of the sacrum with mildly displaced fracturing in the region of the left S2/S3 foramen. 3. Bilateral superior and inferior pubic rami fractures and a nondisplaced fracture of the left acetabulum. 4. Small presacral and left iliopsoas hematomas. I don't see active bleeding. Neel Moyer MD Last 24 hours Impressions Pelvis X-Ray 11/25/161950 Signed Impressions: Service Date/Time: November 19:44 - CONCLUSION: Bilateral pubic rami and left sacral fractures. Neel Moyer MD Head CT 11/25/161950 Signed Impressions: Service Date/Time: November 20:06 - CONCLUSION: Motion degraded study without convincing evidence of acute intracranial hemorrhage. Followup noncontrasted head CT suggested in 24 hours. Neel Moyer MD Chest X-Ray 11/25/161950 Signed Impressions: Service Date/Time: November 19:44 - CONCLUSION: Multiple posterior left rib fractures with a left base parenchymal contusion. Neel Moyer MD Chest CT 11/25/161950 Signed Impressions: Service Date/Time: November 20:10 - CONCLUSION: Multiple left rib fractures with moderate left pneumothorax, tiny left hemothorax and probable contusion of the left lower lobe. Neel Moyer MD Cervical Spine CT 11/25/161950 Signed Impressions: Service Date/Time: November 20:06 - CONCLUSION: 1. No fracture or subluxation of the cervical spine. 2. Degenerative changes with a chronic appearing disc osteophyte complex and uncovertebral/facet osteoarthritis causing severe spinal and bilateral foraminal stenosis at C6-C7. 3. Small, age-indeterminate posterior disc protrusion at C7/T1 causing mild spinal stenosis. Neel Moyer MD Abdomen/Pelvis CT 11/25/161950 Signed Impressions: Service Date/Time: November 20:10 - CONCLUSION: 1. No evidence of acute visceral or injury. 2. Fractures of the left body and ala of the sacrum with mildly displaced fracturing in the region of the left S2/S3 foramen. 3. Bilateral superior and inferior pubic rami fractures and a nondisplaced fracture of the left acetabulum. 4. Small presacral and left iliopsoas hematomas. I don't see active bleeding. Neel Moyer MD Objective Remarks Exam Alert and oriented, no acute distress No cervical tenderness to deep palpation, cervical collar removed Clear to auscultation bilaterally, tender left chest wall Abdomen soft nontender nondistended Distal pulses palpable bilaterally Urinary Catheter: No Vascular Central Line Catheter: No A/P Assessment and Plan Continue chest tube to 20 cm wall suction for small residual apical pneumothorax Continue oral analgesics for pain control Weightbearing status for pelvic fractures per or thorough PT OT to evaluate and treat Patient can be transferred to the floor with repeat chest x-ray in the morning Patrick Oliver MD Nov 26, 2016 14:26
[2016-11-26 16:00] VITALS: BP 147/70; PULSE 107; RESP 21; TEMP 99; O2SAT 99
--- NOTE | 2016-11-26 16:15 | MB ---
cc: NASRA TADEO CHRISTIAN MD DATE OF CONSULTATION: 11/25/2016 REASON FOR CONSULTATION: Pelvic fractures. HISTORY This patient known as Rosendo is a 58-year-old male who is presented emergency room by air one, as a trauma alert. He was apparently up on a ladder approximately 20 feet high. He states he was trying to put in light up in a tree, he was intoxicated and fell. He had immediate pelvic pain. He is unsure if he had loss of consciousness. Complains of low back pain, left-sided chest pain and pelvic pain. He has chronic neck and back pain. Pain is worse with movement is improved with rest. His primary complaint right now is pain around his chest tube. He has pelvic pain is worse with movement. ALLERGIES: PENICILLIN ILLNESSES Hypertension SURGERIES Multiple back operations. MEDICATIONS Please see EMR for this inpatient medications. This was reviewed. SOCIAL HISTORY: Social history The patient drinks most days. He smokes cigarettes. He denies drug use. FAMILY HISTORY Noncontributory. He denies any familial medical problems. REVIEW OF SYSTEMS The patient denies headache, visual changes. Abdomen: No abdominal pain, denies nausea or recent weight loss. He does complain of chronic neck and back pain, chest pain around the chest to, and pelvic pain. PHYSICAL EXAMINATION IN GENERAL: The patient is well-developed, well-nourished male who is in no acute distress. He is awake and alert. He is alert and x3. VITAL SIGNS: Temperature 90.3, pulse 93, respirations 18, blood pressure 125/64, O2 sat 97% of today's nasal cannula. HEAD, EYES, EARS, NOSE, AND THROAT: Head: The patient is normocephalic. Pupils are equal. NECK: Soft, nontender. Trachea is midline. ABDOMEN: Soft, nontender, nondistended. CHEST: The patient has a chest tube in place. The left side. EXTREMITIES: Examination of bilateral upper extremities reveals no significant pain with shoulder or wrist motion is good cap refill is fingers. He has palpable radial pulses bilaterally. Sensation is intact bilaterally. Examination of bilateral lower extremities reveals minimal pain with gentle hip, knee or ankle motion. He has intact sensation both feet. Dorsalis pedis pulses are palpable. Sensation is intact in both feet. PELVIS: Examination was pelvis reveals pain with AP lateral compression. He is tender to palpation over the left side of the sacrum as well as over her as well as the anterior pubic rami. RADIOLOGIC: CT scan of abdomen and pelvis was reviewed. CT scan reveals a minimally displaced left-sided sacral fracture. He also has bilateral rami fractures. IMPRESSION 1. Tobacco dependence 2. Possible alcohol abuse 3. Pneumothorax status post chest tube placement. 4. Left-sided sacral fracture. 5. Bilateral pubic rami fractures. PLAN The treatment options were discussed with the patient at this point fractures of very well-aligned. The fracture appears to be relatively stable. I would recommend nonoperative treatment. The patient will need to be toe-touch weightbearing on the left leg. He may weight bear as tolerated on the right leg for transfers. We will need to repeat x-rays approximately one weeks' to reevaluate. Fracture displaces a need surgical intervention. All questions were answered. A mid-level provider in my office, nurse practitioner or PA, may see this patient on a follow-up basis and continue to implement the objective of this plan including: Starting or adjusting medications, injections of muscle, tendon, bursa or joints, cast application, orthotic or brace application, physical therapy, further radiographic studies including x-ray, MRI, CT, ultrasounds or bone scan, vascular studies, neurologic studies, or other specialist consultations, and proceeding with surgical management as appropriate. MD CRAIG Umanzor/lily /3:37 PM /3:58 PM AILYN
[2016-11-26] MEDS: REMOVE OLD NICODERM (NICOTINE) PATCH TD SCH (19:35)
[2016-11-26] MEDS: FAMOTIDINE 20 MG TAB PO SCH ×2 (19:42→19:51)
[2016-11-26 20:00] VITALS: BP_SYST 153; BP_SYST 165; BP_DIAS 73; BP_DIAS 75; PULSE 113; PULSE 114; PULSE 117; RESP 19; RESP 25; TEMP 97.3; TEMP 98.9; O2SAT 92; O2SAT 97
[2016-11-26 20:17] VITALS: O2SAT 98
[2016-11-26] MEDS: MULTIVITAMIN INJ 10 ML, THIAMINE INJ 100 MG, FOLIC ACID INJ 1 MG in SODIUM CHLORID 0.9%... IV SCH (20:30)
[2016-11-27] VITALS (8 sets, daily range): BP systolic 141–171; BP diastolic 68–95; PULSE 100–120; RESP 19–24; TEMP 97.3–99.8; O2SAT 90–96
[2016-11-27] MEDS: HYDROmorphone HCL PF 1 MG/ML VIAL IVP PRN ×7 (01:37→22:58)
[2016-11-27 05:29] LABS: AUTOMATED NEUTROPHIL # 12.5 TH/MM3 (1.8-7.7); BASOPHIL # 0.1 TH/MM3 (0-0.2); BASOPHIL % 0.8 % (0.0-2.0); HEMATOCRIT 27.3 % (39.0-51.0); LYMPH % 4.9 % (9.0-44.0); LYMPHOCYTE # 0.7 TH/MM3 (1.0-4.8); MEAN CELL VOLUME 105.4 FL (80.0-100.0); MEAN CORPUSCULAR HEMOGLOBIN 37.5 PG (27.0-34.0); MEAN CORPUSCULAR HGB CONC 35.6 % (32.0-36.0); MONO % 7.6 % (0.0-8.0); NEUT % 86.7 % (16.0-70.0); PLATELET COUNT 96 TH/MM3 (150-450); RED BLOOD COUNT 2.58 MIL/MM3 (4.50-5.90); RED CELL DISTRIBUTION WIDTH 12.1 % (11.6-17.2); WHITE BLOOD COUNT 14.5 TH/MM3 (4.0-11.0)
[2016-11-27 05:35] LABS: HEMO FLAGS AUTO DIFF
[2016-11-27 05:55] LABS: ALT (GPT) 92 U/L (12-78); ANION GAP 9 MEQ/L (5-15); AST (GOT) 99 U/L (15-37); BICARBONATE 22.2 MEQ/L (21.0-32.0); BLOOD UREA NITROGEN 11 MG/DL (7-18); CHLORIDE 101 MEQ/L (98-107); GLOMERULAR FILTRATION RATE 104 ML/MIN (>89); MAGNESIUM 1.9 MG/DL (1.5-2.5); POTASSIUM 4.1 MEQ/L (3.5-5.1); SODIUM (NA) 132 MEQ/L (136-145)
[2016-11-27 05:58] LABS: ALKALINE PHOSPHATASE 61 U/L (45-117); TOTAL BILIRUBIN ADULT 1.2 MG/DL (0.2-1.0)
--- NOTE | 2016-11-27 06:17 | RADRPT ---
EXAM DATE/TIME: 11/27/2016 06:05 [facility] COMPARISON: CHEST SINGLE AP, November 26, 2016, 3:32. INDICATIONS : Evaluate after traumatic injury. MEDICAL HISTORY : None. SURGICAL HISTORY : None. ENCOUNTER: Subsequent ACUITY: 3 days PAIN SCORE: Non-responsive. LOCATION: Bilateral chest FINDINGS: Portable AP view of the chest demonstrates a normal-sized cardiac silhouette. Left chest tube is pres ent and no pneumothorax is visualized. There is left basilar pleural-parenchymal opacity. Mild left c hest wall soft tissue air is present. CONCLUSION: 1. Left chest tube remains present and no pneumothorax is visualized. 2. There is a small left pleural effusion with associated volume loss and/or consolidation at the juan luis g base. Neel Mahan MD on November 27, 2016 at 6:14 Board Certified Radiologist. This report was verified electronically.
[2016-11-27] MEDS: ENOXAPARIN SODIUM 30 MG/0.3 ML SYRINGE SQ SCH ×2 (08:17→21:16)
[2016-11-27] MEDS: NICOTINE 14 MG/24 HR PATCH TD SCH (08:17)
[2016-11-27] MEDS: LACTULOSE SYRUP 20 GM/30 ML CUP PO SCH (08:19)
[2016-11-27] MEDS: DOCUSATE SODIUM 50 MG/SENNA 8.6 MG TAB PO SCH ×2 (08:19→19:54)
[2016-11-27 10:00] LABS: BANDS 24 % (0-6); NEUTROPHIL # MANUAL DIFF 11.7 TH/MM3 (1.8-7.7); POLYS (SEG NEUTROPHILS) 57 % (16-70); WBC DIFF SAMPLE 100
[2016-11-27 10:01] LABS: PLATELET ESTIMATE SMEAR LOW (NORMAL); PLATELET MORPHOLOGY NORMAL (NORMAL); SCAN/DIFF FINAL DIFF MANUAL
[2016-11-27] MEDS: METHOCARBAMOL 500 MG TAB PO PRN ×2 (10:06→19:54)
[2016-11-27] MEDS: ACETAMINOPHEN 1000 MG/100 ML VIAL IV SCH ×2 (12:36→21:16)
--- NOTE | 2016-11-27 15:29 | HHI.PR ---
Subjective Subjective Notes PTD: 2 Patient is in a lot of pain. He states "I feel like crap." Objective Vitals/I&O Vital Signs Date Time Temp Pulse Resp B/P Pulse Ox O2 Delivery O2 Flow Rate FiO2 11/27/16 12:00 99.4 116 22 171/78 93 11/26/16 21:00 Nasal Cannula 2.00 Labs Laboratory Tests Test 11/27/16 05:13 White Blood Count 14.5 Red Blood Count 2.58 Hemoglobin 9.7 Hematocrit 27.3 Mean Corpuscular Volume 105.4 Mean Corpuscular Hemoglobin 37.5 Mean Corpuscular Hemoglobin 35.6 Concent Red Cell Distribution Width 12.1 Platelet Count 96 Mean Platelet Volume 8.2 Neutrophils (%) (Auto) 86.7 Lymphocytes (%) (Auto) 4.9 Monocytes (%) (Auto) 7.6 Eosinophils (%) (Auto) 0.0 Basophils (%) (Auto) 0.8 Neutrophils # (Auto) 12.5 Lymphocytes # (Auto) 0.7 Monocytes # (Auto) 1.1 Eosinophils # (Auto) 0.0 Basophils # (Auto) 0.1 CBC Comment AUTO DIFF Differential Total Cells 100 Counted Neutrophils % (Manual) 57 Band Neutrophils % 24 Lymphocytes % 9 Monocytes % 10 Neutrophils # (Manual) 11.7 Differential Comment FINAL DIFF MANUAL Platelet Estimate LOW Platelet Morphology Comment NORMAL Sodium Level 132 Potassium Level 4.1 Chloride Level 101 Carbon Dioxide Level 22.2 Anion Gap 9 Blood Urea Nitrogen 11 Creatinine 0.66 Estimat Glomerular Filtration 104 Rate Random Glucose 163 Calcium Level 8.0 Phosphorus Level 2.0 Magnesium Level 1.9 Total Bilirubin 1.2 Aspartate Amino Transf 99 (AST/SGOT) Alanine Aminotransferase 92 (ALT/SGPT) Alkaline Phosphatase 61 Total Protein 5.9 Albumin 2.5 Radiology Last Impressions Chest X-Ray 11/27/16 0600 Signed Impressions: Service Date/Time: Sunday, November 27, 2016 06:05 - CONCLUSION: 1. Left chest tube remains present and no pneumothorax is visualized. 2. There is a small left pleural effusion with associated volume loss and/or consolidation at the lung base. Neel Mahan MD Pelvis X-Ray 11/25/161950 Signed Impressions: Service Date/Time: November 19:44 - CONCLUSION: Bilateral pubic rami and left sacral fractures. Neel Moyer MD Head CT 11/25/161950 Signed Impressions: Service Date/Time: November 20:06 - CONCLUSION: Motion degraded study without convincing evidence of acute intracranial hemorrhage. Followup noncontrasted head CT suggested in 24 hours. Neel Moyer MD Chest CT 11/25/161950 Signed Impressions: Service Date/Time: November 20:10 - CONCLUSION: Multiple left rib fractures with moderate left pneumothorax, tiny left hemothorax and probable contusion of the left lower lobe. Neel Moyer MD Cervical Spine CT 11/25/161950 Signed Impressions: Service Date/Time: November 20:06 - CONCLUSION: 1. No fracture or subluxation of the cervical spine. 2. Degenerative changes with a chronic appearing disc osteophyte complex and uncovertebral/facet osteoarthritis causing severe spinal and bilateral foraminal stenosis at C6-C7. 3. Small, age-indeterminate posterior disc protrusion at C7/T1 causing mild spinal stenosis. Neel Moyer MD Abdomen/Pelvis CT 11/25/161950 Signed Impressions: Service Date/Time: November 20:10 - CONCLUSION: 1. No evidence of acute visceral or injury. 2. Fractures of the left body and ala of the sacrum with mildly displaced fracturing in the region of the left S2/S3 foramen. 3. Bilateral superior and inferior pubic rami fractures and a nondisplaced fracture of the left acetabulum. 4. Small presacral and left iliopsoas hematomas. I don't see active bleeding. Neel Moyer MD Thoracic Spine CT 11/25/16 0000 Signed Impressions: Service Date/Time: November 20:10 - CONCLUSION: Left T12 transverse process and facet fracture, minimally displaced. Multiple left posterior rib fractures and placed refer to the chest CT report. Thoracic vertebral bodies are intact. No subluxations. Neel Moyer MD Lumbar Spine CT 11/25/16 0000 Signed Impressions: Service Date/Time: November 20:10 - CONCLUSION: 1. Minimally to mildly displaced left transverse process fractures of L1-L4. 2. Multilevel degenerative changes as above. Large right paracentral disc fragment at L4/L5, probably nonacute. Neel Moyer MD Narrative Exam GENERAL: This is a 58-year-old man lying in bed. SKIN: Warm and dry. HEAD: Atraumatic. Normocephalic. EYES: PERRLA ENT: No nasal bleeding or discharge. Mucous membranes pink and moist. NECK: Trachea midline. No JVD. CARDIOVASCULAR: Regular rate and rhythm. RESPIRATORY: LEFT CT in place to Pleura-vac drainage system. (decreased to water seal.) No accessory muscle use. Lungs with rhonchi to auscultation. Breath sounds equal bilaterally. No distress or dyspnea. GASTROINTESTINAL: BS + x 4 quads. Abdomen soft, non-tender, nondistended. MUSCULOSKELETAL: Extremities without cyanosis, or edema. + peripheral pulses x 4 extremities. Warm with good capillary refill and sensation. MAEW. NEUROLOGICAL: Awake and alert. Normal speech and pattern. A/P Problem List: (1) Pelvic fracture (2) Traumatic pneumothorax (3) Fall from ladder (4) Lung contusion (5) Multiple rib fractures Assessment and Plan [place]: This is a 58-year-old male who sustained a fall from approximately 20 feet off a ladder. He fell onto his back. No LOC. GCS = 14. He was originally managed closely in the ICU, however has been transferred to the [facility] floor. INJURIES: Multiple LEFT rib fxs LEFT PTX Tiny LEFT hempPTX (w/ CT LEFT lower lobe contusion (spinal stenosis C6-C7) (Disk protrusion C7-T1- spinal stenosis) LEFT S2-S3 foramen fx (mild displaced) BILAT superior and inferior pubic rami fx (non-op) LEFT sacral Fx (non-op) LEFT acetabulum fx (non-displaced) (non-op) Consults: [facility], orthopedics. Diet: Regular diet. Tolerating po diet. Encourage good po intake with each meal. Pulmonary: Encourage good pulmonary toileting. IS at bedside and pt encouraged to use. Added acapella and a EZpap. Rationale for use and the importance of use explained to patient and family at the bedside. All verbalized understanding. Duonebs q 6 and q [address] placed to water seal. Repeat Chest Xray and labs in the AM. PAIN Management: Oxycodone po increased to every 3 hours. Dilaudid IV for breakthrough pain. Activity: OOB with assist. PT and OT ordered. (WBAT RLE; TTWB LLE) GI prophylaxis: Pepcid hs. Bowel regimen: Roseanne-colace and MOM. 0 BM. Added Lactulose q day. However he has been refusing bowel medications. Discussed the importance of a good bowel regimen while taking narcotic pain medications. DVT prophylaxis: Mechanical VTE with SCDs. Chemical management with Lovenox SQ. DC Planning: Case management consulted for assistance with final discharge disposition. Pt and OT are recommending rehab for this patient. Emotional support provided to patient and family at bedside and plan of care discussed. Discussed with RN at bedside. Patient is hemodynamically stable and being managed on the med/surg floor. Problem Qualifiers (1) Pelvic fracture: Qualified Code: S32.810A - Multiple closed fractures of pelvis with stable disruption of pelvic [place], initial encounter (2) Traumatic pneumothorax: Qualified Code: S27.0XXA - Traumatic pneumothorax, initial encounter (3) Fall from ladder: Qualified Code: W11.XXXA - Fall from ladder, initial encounter (4) Lung contusion: Qualified Code: S27.321A - Contusion of left lung, initial encounter (5) Multiple rib fractures: Qualified Code: S22.42XA - Closed fracture of multiple ribs of left side, initial encounter Shoshana Donovan Nov 27, 2016 15:29
[2016-11-27] MEDS: RESP: ALBUTEROL 2.5 MG/IPRATROPIUM 0.5 MG NEB (SCH) NEB ×2 (17:40→19:46)
[2016-11-27] MEDS: ONDANSETRON HCL 4 MG/2 ML VIAL IV PRN (18:17)
[2016-11-27] MEDS: FAMOTIDINE 20 MG TAB PO SCH (19:54)
[2016-11-27] MEDS: MAGNESIUM HYDROXIDE SUSP 30 ML CUP PO SCH (19:54)
[2016-11-27] MEDS: REMOVE OLD NICODERM (NICOTINE) PATCH TD SCH (19:57)
[2016-11-27 21:04] LABS: MEAN CORPUSCULAR HGB CONC 36.4 % (32.0-36.0)
[2016-11-27] MEDS: MULTIVITAMIN INJ 10 ML, THIAMINE INJ 100 MG, FOLIC ACID INJ 1 MG in SODIUM CHLORID 0.9%... IV SCH (21:16)
[2016-11-28] VITALS (8 sets, daily range): BP systolic 132–153; BP diastolic 66–76; PULSE 110–120; RESP 18–24; TEMP 97–98; O2SAT 92–96
[2016-11-28] MEDS: HYDROmorphone HCL PF 1 MG/ML VIAL IVP PRN ×5 (02:05→21:14)
[2016-11-28] MEDS: RESP: ALBUTEROL 2.5 MG/IPRATROPIUM 0.5 MG NEB (SCH) NEB ×4 (03:04→20:42)
--- NOTE | 2016-11-28 04:36 | RADRPT ---
EXAM DATE/TIME: 11/28/2016 03:57 [facility] COMPARISON: CT THORAX W CONTRAST, November 25, 2016, 20:10. CHEST SINGLE AP, November 27, 2016, 6:05. INDICATIONS : Pneumothorax, congestion, short of breath. MEDICAL HISTORY : Fracture pelvis, Multiple fx ribs. SURGICAL HISTORY : Chest tube ENCOUNTER: Subsequent ACUITY: 3 weeks PAIN SCORE: 9/10 LOCATION: Bilateral chest FINDINGS: Portable AP view of the chest demonstrates a normal-sized cardiac silhouette. Left chest tube is pres ent. No pneumothorax is visualized. There has been interval development of a moderate-sized pleural-b ased opacity in the inferior left hemithorax. There is stable pleural-parenchymal opacity at the left lung base. Right lung demonstrates no definite abnormality. Left rib fractures remain visualized. CONCLUSION: 1. Left chest tube remains present and no pneumothorax is seen. However, there is a new pleural-based opacity at the superior left hemithorax. Given the recent trauma this may represent a hematoma. Ches t CT could be performed for further characterization, if needed. 2. Stable left basilar opacity likely representing pleural effusion with associated volume loss and/o r consolidation. Neel Mahan MD on November 28, 2016 at 4:32 Board Certified Radiologist. This report was verified electronically.
[2016-11-28] MEDS: ACETAMINOPHEN 1000 MG/100 ML VIAL IV SCH ×3 (05:03→21:14)
[2016-11-28 06:09] LABS: HEMATOCRIT 24.2 % (39.0-51.0); MEAN CELL VOLUME 103.6 FL (80.0-100.0); MEAN CORPUSCULAR HEMOGLOBIN 37.7 PG (27.0-34.0); PLATELET COUNT 90 TH/MM3 (150-450); RED BLOOD COUNT 2.34 MIL/MM3 (4.50-5.90); RED CELL DISTRIBUTION WIDTH 12.3 % (11.6-17.2); WHITE BLOOD COUNT 14.3 TH/MM3 (4.0-11.0)
[2016-11-28 06:21] LABS: REVIEW FLAG FINAL
[2016-11-28 06:24] LABS: BICARBONATE 23.4 MEQ/L (21.0-32.0)
[2016-11-28] MEDS ORDERED: BISACODYL 10 MG SUPP RECTAL ONE (08:15)
[2016-11-28] MEDS ORDERED: BISACODYL EC 5 MG TABEC PO ONE (08:15)
[2016-11-28] MEDS: LACTULOSE SYRUP 20 GM/30 ML CUP PO SCH ×2 (08:49→09:00)
[2016-11-28] MEDS: DOCUSATE SODIUM 50 MG/SENNA 8.6 MG TAB PO SCH ×2 (08:49→19:33)
[2016-11-28] MEDS: NICOTINE 14 MG/24 HR PATCH TD SCH (08:50)
[2016-11-28] MEDS: ENOXAPARIN SODIUM 30 MG/0.3 ML SYRINGE SQ SCH ×2 (10:35→21:13)
[2016-11-28] MEDS: SODIUM CHLORIDE 0.9% FLUSH 5 ML FLUSH IVF PRN ×3 (10:40→19:33)
[2016-11-28] MEDS ORDERED: IOHEXOL 350 MG/ML 10 ML VIAL (for RAD DIAG) IV ONE (13:51)
--- NOTE | 2016-11-28 13:59 | HHI.PR ---
Subjective Subjective Notes PTD: 3 Called this morning by [facility] nurse, Tanmya, to discuss patient's status, and a.m. chest x-ray results. (Tanmay was called to the bedside to evaluate the patient.) Discussed with Tanmay that I had seen this morning's chest x-ray, and that the trauma team would be evaluating this patient first on rounds. A.m. rounds: Patient is sitting in bed, no distress. The patient states he feels so much better now compared to earlier this morning. He describes a pain that begins on the left/front of his chest that goes straight through to his back. He states it hurts to breathe, cough, or move. 02 sats equal 84% on room air (patient has nasal cannula around his chin.) O2 nasal cannula 4 L replaced properly, and O2 sats slowly resume to 92-93%. Objective Vitals/I&O Vital Signs Date Time Temp Pulse Resp B/P Pulse Ox O2 Delivery O2 Flow Rate FiO2 11/28/16 12:00 97.0 120 20 132/76 93 11/28/16 10:06 Nasal Cannula 4.00 Labs Laboratory Tests Test 11/28/16 05:45 White Blood Count 14.3 Red Blood Count 2.34 Hemoglobin 8.8 Hematocrit 24.2 Mean Corpuscular Volume 103.6 Mean Corpuscular Hemoglobin 37.7 Mean Corpuscular Hemoglobin 36.4 Concent Red Cell Distribution Width 12.3 Platelet Count 90 Mean Platelet Volume 8.3 Sodium Level 130 Potassium Level 4.0 Chloride Level 98 Carbon Dioxide Level 23.4 Anion Gap 9 Blood Urea Nitrogen 10 Creatinine 0.52 Estimat Glomerular Filtration 137 Rate Random Glucose 101 Calcium Level 7.8 Magnesium Level 2.0 Radiology Last Impressions Chest X-Ray 11/27/16 0600 Signed Impressions: Service Date/Time: Sunday, November 27, 2016 06:05 - CONCLUSION: 1. Left chest tube remains present and no pneumothorax is visualized. 2. There is a small left pleural effusion with associated volume loss and/or consolidation at the lung base. Neel Mahan MD Pelvis X-Ray 11/25/161950 Signed Impressions: Service Date/Time: November 19:44 - CONCLUSION: Bilateral pubic rami and left sacral fractures. Neel Moyer MD Head CT 11/25/161950 Signed Impressions: Service Date/Time: November 20:06 - CONCLUSION: Motion degraded study without convincing evidence of acute intracranial hemorrhage. Followup noncontrasted head CT suggested in 24 hours. Neel Moyer MD Chest CT 11/25/161950 Signed Impressions: Service Date/Time: November 20:10 - CONCLUSION: Multiple left rib fractures with moderate left pneumothorax, tiny left hemothorax and probable contusion of the left lower lobe. Neel Moyer MD Cervical Spine CT 11/25/161950 Signed Impressions: Service Date/Time: November 20:06 - CONCLUSION: 1. No fracture or subluxation of the cervical spine. 2. Degenerative changes with a chronic appearing disc osteophyte complex and uncovertebral/facet osteoarthritis causing severe spinal and bilateral foraminal stenosis at C6-C7. 3. Small, age-indeterminate posterior disc protrusion at C7/T1 causing mild spinal stenosis. Neel Moyer MD Abdomen/Pelvis CT 11/25/161950 Signed Impressions: Service Date/Time: November 20:10 - CONCLUSION: 1. No evidence of acute visceral or injury. 2. Fractures of the left body and ala of the sacrum with mildly displaced fracturing in the region of the left S2/S3 foramen. 3. Bilateral superior and inferior pubic rami fractures and a nondisplaced fracture of the left acetabulum. 4. Small presacral and left iliopsoas hematomas. I don't see active bleeding. Neel Moyer MD Thoracic Spine CT 11/25/16 0000 Signed Impressions: Service Date/Time: November 20:10 - CONCLUSION: Left T12 transverse process and facet fracture, minimally displaced. Multiple left posterior rib fractures and placed refer to the chest CT report. Thoracic vertebral bodies are intact. No subluxations. Neel Moyer MD Lumbar Spine CT 11/25/16 0000 Signed Impressions: Service Date/Time: November 20:10 - CONCLUSION: 1. Minimally to mildly displaced left transverse process fractures of L1-L4. 2. Multilevel degenerative changes as above. Large right paracentral disc fragment at L4/L5, probably nonacute. Neel Moyer MD Narrative Exam GENERAL: This is a 58-year-old man lying in bed. SKIN: Warm and dry. HEAD: Atraumatic. Normocephalic. EYES: PERRLA ENT: No nasal bleeding or discharge. Mucous membranes pink and moist. NECK: Trachea midline. No JVD. CARDIOVASCULAR: Regular rate and rhythm. RESPIRATORY: 4 L nasal cannula. Sats equal 92-93%. LEFT CT in place to Pleura- vac drainage system. (decreased to water seal.) No accessory muscle use. Lungs with rhonchi to auscultation in all lobes. Breath sounds equal bilaterally. No distress or dyspnea. GASTROINTESTINAL: BS + x 4 quads. Abdomen soft, non-tender, nondistended. MUSCULOSKELETAL: Extremities without cyanosis, or edema. + peripheral pulses x 4 extremities. Warm with good capillary refill and sensation. MAEW. NEUROLOGICAL: Awake and alert. Normal speech and pattern. A/P Problem List: (1) Pelvic fracture (2) Traumatic pneumothorax (3) Fall from ladder (4) Lung contusion (5) Multiple rib fractures Assessment and Plan [place]: This is a 58-year-old male who sustained a fall from approximately 20 feet off a ladder. He fell onto his back. No LOC. GCS = 14. He was originally managed closely in the ICU, however [facility]. INJURIES: Multiple LEFT rib fxs LEFT PTX Tiny LEFT hempPTX (w/ CT LEFT lower lobe contusion (spinal stenosis C6-C7) (Disk protrusion C7-T1- spinal stenosis) LEFT S2-S3 foramen fx (mild displaced) BILAT superior and inferior pubic rami fx (non-op) LEFT sacral Fx (non-op) LEFT acetabulum fx (non-displaced) (non-op) Consults: [facility], orthopedics. Diet: Regular diet. Tolerating po diet. Encourage good po intake with each meal. Pulmonary: Encourage good pulmonary toileting. IS at bedside and pt encouraged to use. Added acapella and a EZpap. Rationale for use and the importance of use explained to patient and family at the bedside. All verbalized understanding. Duonebs q 6 and q 2 PRN ordered. A.m. chest x-ray reveals ?hematoma in the left upper lobe. STAT CT thorax obtained. CT thorax shows loculated effusion in the LEFT upper lobe. Consult placed to interventional radiology for assistance with chest tube placement for drainage of effusion. Repeat Chest Xray and labs in the AM. PAIN Management: Oxycodone po increased to every 3 hours. Dilaudid IV for breakthrough pain. Activity: OOB with assist. PT and OT ordered. (WBAT RLE; TTWB LLE) GI prophylaxis: Pepcid hs. Bowel regimen: Roseanne-colace and MOM. Lactulose q day. 0 BM x 3 days. Intensified with bisacodyl PO/DC. DC Guillaume catheter. DVT prophylaxis: Mechanical VTE with SCDs. Chemical management with Lovenox 30 q 12h DC Planning: Case management consulted for assistance with final discharge disposition. PT and OT are recommending rehab for this patient. Emotional support provided to patient at bedside and plan of care discussed. Discussed with RN at bedside. Patient is hemodynamically stable and being managed on the med/surg floor. Problem Qualifiers (1) Pelvic fracture: Qualified Code: S32.810A - Multiple closed fractures of pelvis with stable disruption of pelvic saxman, initial encounter (2) Traumatic pneumothorax: Qualified Code: S27.0XXA - Traumatic pneumothorax, initial encounter (3) Fall from ladder: Qualified Code: W11.XXXA - Fall from ladder, initial encounter (4) Lung contusion: Qualified Code: S27.321A - Contusion of left lung, initial encounter (5) Multiple rib fractures: Qualified Code: S22.42XA - Closed fracture of multiple ribs of left side, initial encounter Shoshana Donovan Nov 28, 2016 13:59
--- NOTE | 2016-11-28 14:07 | RADRPT ---
EXAM DATE/TIME: 11/28/2016 13:46 [facility] COMPARISON: CHEST SINGLE AP, November 28, 2016, 3:57. INDICATIONS : Abnormal chest xray. Possible hematoma. IV CONTRAST: 55 cc Omnipaque 350 (iohexol) IV Injection Site: Lt AC Lot: [id number] Exp Date: Sep 2019 Lot: Exp Date : RADIATION DOSE: 9.58 CTDIvol (mGy) MEDICAL HISTORY : None SURGICAL HISTORY : None. ENCOUNTER: Initial ACUITY: 1 day PAIN SCALE: 8/10 LOCATION: chest TECHNIQUE: Volumetric scanning of the chest was performed. Using automated exposure control and adjustment of t he mA and/or kV according to patient size, radiation dose was kept as low as reasonably achievable to obtain optimal diagnostic quality images. FINDINGS: LUNGS: Tiny pneumothorax on the right. Minimal scattered densities in the right perihilar region, right uppe r and right lower lobe. Left basilar consolidation and patchy densities in the left upper lobe. Left- sided chest tube in the left major fissure. PLEURA: There is loculated effusion on the left more notably along the left upper hemithorax. Minimal air is seen within the pleural fluid collection posteriorly. MEDIASTINUM: The heart and great vessels demonstrate no acute abnormality. There is no mediastinal or hilar lymph adenopathy. AXILLAE: Within normal limits. No lymphadenopathy. SKELETAL: Multiple left-sided rib fractures. MISCELLANEOUS: The visualized upper abdominal organs demonstrate no acute abnormality. CONCLUSION: 1. Abnormality in the left upper hemithorax corresponds with loculated effusion. 2. Left-sided chest tube remains in the left major fissure. 3. Tiny pneumothorax on the right. 4. Scattered parenchymal densities throughout the lungs including left basilar consolidation. Melecio Rodriguez MD on November 28, 2016 at 14:02 Board Certified Radiologist. This report was verified electronically.
[2016-11-28] MEDS: ONDANSETRON HCL 4 MG/2 ML VIAL IV PRN (15:59)
[2016-11-28] MEDS: MAGNESIUM HYDROXIDE SUSP 30 ML CUP PO SCH (19:32)
[2016-11-28] MEDS: METHOCARBAMOL 500 MG TAB PO PRN (19:33)
[2016-11-28] MEDS: FAMOTIDINE 20 MG TAB PO SCH (19:33)
[2016-11-28] MEDS: REMOVE OLD NICODERM (NICOTINE) PATCH TD SCH (19:34)
[2016-11-28 21:07] LABS: MEAN CORPUSCULAR HGB CONC 36.5 % (32.0-36.0)
[2016-11-29] VITALS (8 sets, daily range): BP systolic 139–194; BP diastolic 67–92; PULSE 78–122; RESP 18–21; TEMP 96.8–98.3; O2SAT 92–97
[2016-11-29] MEDS: HYDROmorphone HCL PF 1 MG/ML VIAL IVP PRN ×4 (00:30→21:13)
[2016-11-29] MEDS: ACETAMINOPHEN 1000 MG/100 ML VIAL IV SCH ×3 (04:36→21:02)
[2016-11-29] MEDS: RESP: ALBUTEROL 2.5 MG/IPRATROPIUM 0.5 MG NEB (SCH) NEB ×5 (04:50→21:07)
[2016-11-29 05:37] LABS: HEMATOCRIT 23.1 % (39.0-51.0); MEAN CELL VOLUME 103.9 FL (80.0-100.0); PLATELET COUNT 129 TH/MM3 (150-450); RED BLOOD COUNT 2.22 MIL/MM3 (4.50-5.90); RED CELL DISTRIBUTION WIDTH 12.2 % (11.6-17.2)
[2016-11-29 05:48] LABS: REVIEW FLAG FINAL
[2016-11-29 05:57] LABS: BICARBONATE 24.3 MEQ/L (21.0-32.0); MAGNESIUM 2.3 MG/DL (1.5-2.5); POTASSIUM 3.6 MEQ/L (3.5-5.1)
--- NOTE | 2016-11-29 06:35 | RADRPT ---
EXAM DATE/TIME: 11/29/2016 05:17 [facility] COMPARISON: CT THORAX W CONTRAST, November 28, 2016, 13:46. CHEST SINGLE AP, November 28, 2016, 3:57. INDICATIONS : Chest pain, short of breath, chest tube MEDICAL HISTORY : pneumothorax SURGICAL HISTORY : left chest tube, cervical fusion ENCOUNTER: Subsequent ACUITY: 3 days PAIN SCORE: 10/10 LOCATION: Bilateral chest FINDINGS: ACDF hardware overlies the cervical spine. Right lung is clear. Cardiomegaly. Left-sided chest tube a gain noted. There is a stable loculated effusion at the left apex. CONCLUSION: No significant change has occurred. Dk Hand MD on November 29, 2016 at 6:32 Board Certified Radiologist. This report was verified electronically.
--- NOTE | 2016-11-29 06:59 | PD.ORT.PN ---
Subjective Subjective Remarks Having difficulty with pain control. Chest tube in place. Painful for transfers Objective Vitals Vital Signs Date Time Temp Pulse Resp B/P Pulse Ox O2 Delivery O2 Flow Rate FiO2 11/29/16 05:06 20 11/29/16 05:06 20 11/29/16 04:31 20 11/29/16 00:00 98.3 115 18 139/67 94 11/28/16 20:42 92 Nasal Cannula 5.00 11/28/16 20:00 97.9 116 18 149/70 92 11/28/16 19:35 Nasal Cannula 4.00 11/28/16 17:01 96 Nasal Cannula 4.00 11/28/16 16:00 97.4 110 20 145/66 94 11/28/16 12:00 97.0 120 20 132/76 93 11/28/16 10:06 96 Nasal Cannula 4.00 11/28/16 08:47 90 Nasal Cannula 4.00 11/28/16 08:46 87 3.00 11/28/16 08:00 97.0 117 22 147/68 94 I/O 11/28/16 11/28/16 11/28/16 11/29/16 11/29/16 11/29/16 07:00 15:00 23:00 07:00 15:00 23:00 Intake Total 940 ml 360 ml 240 ml 240 ml Output Total 400 ml 415 ml 204 ml 500 ml Balance 540 ml -55 ml 36 ml -260 ml Intake Oral 240 ml 360 ml 240 ml 240 ml IV Total 700 ml Output Urine Total 400 ml 400 ml 200 ml 500 ml Chest Tube Drainage Total 0 ml 15 ml 4 ml 0 ml # Bowel Movements 0 0 1 0 Result Diagram: 11/29/16 0433 11/29/16 0433 Imaging Last 24 hours Impressions Chest X-Ray 11/26/16 0000 Signed Impressions: Service Date/Time: Saturday, November 26, 2016 03:32 - CONCLUSION: 1. Left chest tube remains present and there is likely a tiny left apical pneumothorax present. There is stable air along the left chest wall. 2. Stable left lung base airspace opacity representing either atelectasis or consolidation. Neel Mahan MD Pelvis X-Ray 11/25/161950 Signed Impressions: Service Date/Time: November 19:44 - CONCLUSION: Bilateral pubic rami and left sacral fractures. Neel Moyer MD Head CT 11/25/161950 Signed Impressions: Service Date/Time: November 20:06 - CONCLUSION: Motion degraded study without convincing evidence of acute intracranial hemorrhage. Followup noncontrasted head CT suggested in 24 hours. Neel Moyer MD Chest X-Ray 11/25/161950 Signed Impressions: Service Date/Time: November 19:44 - CONCLUSION: Multiple posterior left rib fractures with a left base parenchymal contusion. Neel Moyer MD Chest CT 11/25/161950 Signed Impressions: Service Date/Time: November 20:10 - CONCLUSION: Multiple left rib fractures with moderate left pneumothorax, tiny left hemothorax and probable contusion of the left lower lobe. Neel Moyer MD Cervical Spine CT 11/25/161950 Signed Impressions: Service Date/Time: November 20:06 - CONCLUSION: 1. No fracture or subluxation of the cervical spine. 2. Degenerative changes with a chronic appearing disc osteophyte complex and uncovertebral/facet osteoarthritis causing severe spinal and bilateral foraminal stenosis at C6-C7. 3. Small, age-indeterminate posterior disc protrusion at C7/T1 causing mild spinal stenosis. Neel Moyer MD Abdomen/Pelvis CT 11/25/161950 Signed Impressions: Service Date/Time: November 20:10 - CONCLUSION: 1. No evidence of acute visceral or injury. 2. Fractures of the left body and ala of the sacrum with mildly displaced fracturing in the region of the left S2/S3 foramen. 3. Bilateral superior and inferior pubic rami fractures and a nondisplaced fracture of the left acetabulum. 4. Small presacral and left iliopsoas hematomas. I don't see active bleeding. Neel Moyer MD Objective Remarks Pelvis: Pain to palpation over pubic rami and over sacrum Bilateral lower extremities: Minimal pain with passive range of motion of hip both forward and internal/external rotation. Pain with active range of motion of bilateral hips. Distally intact sensation bilateral lower extremities with strong dorsiflexion plantar flexion of foot. Intact distal pulses and good capillary refills Assessment & Plan Assessment and Plan 1) Left Sacral Fxs 2) Bilateral sup/inf rami fxs -nonop -WBAT on RLE -TTWB LLE ortho cleared for DC when medically cleared PT ordered WADE MEMBRENO PA-C Nov 29, 2016 06:59
[2016-11-29] MEDS: ENALAPRILAT 1.25 MG/ML VIAL IV PRN ×2 (08:22→21:07)
[2016-11-29] MEDS: NICOTINE 14 MG/24 HR PATCH TD SCH (08:24)
[2016-11-29] MEDS: DOCUSATE SODIUM 50 MG/SENNA 8.6 MG TAB PO SCH ×2 (08:25→21:01)
[2016-11-29] MEDS: LACTULOSE SYRUP 20 GM/30 ML CUP PO SCH (08:25)
[2016-11-29] MEDS: ENOXAPARIN SODIUM 30 MG/0.3 ML SYRINGE SQ SCH ×2 (08:25→21:01)
--- NOTE | 2016-11-29 11:22 | HHI.PR ---
Subjective Subjective Notes PTD: 4 Patient lying in bed. Patient states that his pain is "bad, the pain hasn't changed." Objective Vitals/I&O Vital Signs Date Time Temp Pulse Resp B/P Pulse Ox O2 Delivery O2 Flow Rate FiO2 11/29/16 10:14 17 11/29/16 10:00 97.5 122 149/69 95 11/29/16 09:10 Nasal Cannula 2.00 Humidified Labs Laboratory Tests Test 11/29/16 04:33 White Blood Count 12.0 Red Blood Count 2.22 Hemoglobin 8.4 Hematocrit 23.1 Mean Corpuscular Volume 103.9 Mean Corpuscular Hemoglobin 38.0 Mean Corpuscular Hemoglobin 36.5 Concent Red Cell Distribution Width 12.2 Platelet Count 129 Mean Platelet Volume 8.9 Sodium Level 131 Potassium Level 3.6 Chloride Level 98 Carbon Dioxide Level 24.3 Anion Gap 9 Blood Urea Nitrogen 11 Creatinine 0.42 Estimat Glomerular Filtration 205 Rate Random Glucose 106 Calcium Level 8.1 Magnesium Level 2.3 Radiology Last Impressions Chest X-Ray 11/27/16 0600 Signed Impressions: Service Date/Time: Sunday, November 27, 2016 06:05 - CONCLUSION: 1. Left chest tube remains present and no pneumothorax is visualized. 2. There is a small left pleural effusion with associated volume loss and/or consolidation at the lung base. Neel Mahan MD Pelvis X-Ray 11/25/161950 Signed Impressions: Service Date/Time: November 19:44 - CONCLUSION: Bilateral pubic rami and left sacral fractures. Neel Moyer MD Head CT 11/25/161950 Signed Impressions: Service Date/Time: November 20:06 - CONCLUSION: Motion degraded study without convincing evidence of acute intracranial hemorrhage. Followup noncontrasted head CT suggested in 24 hours. Neel Moyer MD Chest CT 11/25/161950 Signed Impressions: Service Date/Time: November 20:10 - CONCLUSION: Multiple left rib fractures with moderate left pneumothorax, tiny left hemothorax and probable contusion of the left lower lobe. Neel Moyer MD Cervical Spine CT 11/25/161950 Signed Impressions: Service Date/Time: November 20:06 - CONCLUSION: 1. No fracture or subluxation of the cervical spine. 2. Degenerative changes with a chronic appearing disc osteophyte complex and uncovertebral/facet osteoarthritis causing severe spinal and bilateral foraminal stenosis at C6-C7. 3. Small, age-indeterminate posterior disc protrusion at C7/T1 causing mild spinal stenosis. Neel Moyer MD Abdomen/Pelvis CT 11/25/16 195 Signed Impressions: Service Date/Time: November 20:10 - CONCLUSION: 1. No evidence of acute visceral or injury. 2. Fractures of the left body and ala of the sacrum with mildly displaced fracturing in the region of the left S2/S3 foramen. 3. Bilateral superior and inferior pubic rami fractures and a nondisplaced fracture of the left acetabulum. 4. Small presacral and left iliopsoas hematomas. I don't see active bleeding. Neel Moyer MD Thoracic Spine CT 11/25/16 0000 Signed Impressions: Service Date/Time: November 20:10 - CONCLUSION: Left T12 transverse process and facet fracture, minimally displaced. Multiple left posterior rib fractures and placed refer to the chest CT report. Thoracic vertebral bodies are intact. No subluxations. Neel Moyer MD Lumbar Spine CT 11/25/16 0000 Signed Impressions: Service Date/Time: November 20:10 - CONCLUSION: 1. Minimally to mildly displaced left transverse process fractures of L1-L4. 2. Multilevel degenerative changes as above. Large right paracentral disc fragment at L4/L5, probably nonacute. Neel Moyer MD Narrative Exam GENERAL: This is a 58-year-old man lying in bed. SKIN: Warm and dry. HEAD: Atraumatic. Normocephalic. EYES: PERRLA ENT: No nasal bleeding or discharge. Mucous membranes pink and moist. NECK: Trachea midline. No JVD. CARDIOVASCULAR: Regular rate and rhythm. RESPIRATORY: 4 L nasal cannula. Sats equal 92%. LEFT CT in place to Pleura- vac drainage system / waterseal. No accessory muscle use. Lungs with rhonchi to auscultation in all lobes. Breath sounds equal bilaterally. No distress or dyspnea. GASTROINTESTINAL: BS + x 4 quads. Abdomen soft, non-tender, nondistended. MUSCULOSKELETAL: Extremities without cyanosis, or edema. + peripheral pulses x 4 extremities. Warm with good capillary refill and sensation. MAEW. NEUROLOGICAL: Awake and alert. Normal speech and pattern. A/P Problem List: (1) Pelvic fracture (2) Traumatic pneumothorax (3) Fall from ladder (4) Lung contusion (5) Multiple rib fractures Assessment and Plan [place]: This is a 58-year-old male who sustained a fall from approximately 20 feet off a ladder. He fell onto his back. No LOC. GCS = 14. He was originally managed closely in the ICU, however has been transferred to the [facility] floor. INJURIES: Multiple LEFT rib fxs LEFT PTX Tiny LEFT hempPTX (w/ CT LEFT lower lobe contusion (spinal stenosis C6-C7) (Disk protrusion C7-T1- spinal stenosis) LEFT S2-S3 foramen fx (mild displaced) BILAT superior and inferior pubic rami fx (non-op) LEFT sacral Fx (non-op) LEFT acetabulum fx (non-displaced) (non-op) Consults: [facility], orthopedics. Diet: Regular diet. Tolerating po diet. Encourage good po intake with each meal. Pulmonary: Encourage good pulmonary toileting. IS at bedside and pt encouraged to use. Added acapella and a EZpap. Rationale for use and the importance of use explained to patient and family at the bedside. All verbalized understanding. Duonebs q 6 and q [address] thorax shows loculated effusion in the LEFT upper lobe. Consult in place to interventional radiology for assistance with chest tube placement for drainage of effusion. (Chest tube to be placed tomorrow by IR, as the patient needs to be NPO after midnight.) Repeat Chest Xray and labs in the AM. PAIN Management: Oxycodone po 3 hours. Dilaudid IV for breakthrough pain. Added ibuprofen scheduled. Added Neurontin 300mg TID. Activity: OOB with assist. PT and OT ordered. (WBAT RLE; TTWB LLE) discussed the importance of the patient mobilizing out of bed. Patient verbalizes understanding. GI prophylaxis: Pepcid hs. Bowel regimen: Roseanne-colace and MOM. Lactulose q day. BM x 1. DVT prophylaxis: Mechanical VTE with SCDs. Chemical management with Lovenox 30 q 12h DC Planning: Case management consulted for assistance with final discharge disposition. [facility] is following the patient for admission. Emotional support provided to patient at bedside and plan of care discussed. Discussed with RN at bedside. Patient is hemodynamically stable and being managed on the med/surg floor. Problem Qualifiers (1) Pelvic fracture: Qualified Code: S32.810A - Multiple closed fractures of pelvis with stable disruption of pelvic minto, initial encounter (2) Traumatic pneumothorax: Qualified Code: S27.0XXA - Traumatic pneumothorax, initial encounter (3) Fall from ladder: Qualified Code: W11.XXXA - Fall from ladder, initial encounter (4) Lung contusion: Qualified Code: S27.321A - Contusion of left lung, initial encounter (5) Multiple rib fractures: Qualified Code: S22.42XA - Closed fracture of multiple ribs of left side, initial encounter Shoshana Donovan Nov 29, 2016 11:22
[2016-11-29] MEDS: GABAPENTIN 300 MG CAP PO SCH ×2 (12:58→17:21)
[2016-11-29] MEDS: IBUPROFEN 800 MG TAB PO SCH ×3 (12:58→23:06)
[2016-11-29] MEDS: REMOVE OLD NICODERM (NICOTINE) PATCH TD SCH (21:00)
[2016-11-29] MEDS: MAGNESIUM HYDROXIDE SUSP 30 ML CUP PO SCH (21:01)
[2016-11-29] MEDS: FAMOTIDINE 20 MG TAB PO SCH (21:01)
--- NOTE | 2016-11-29 22:37 | RADRPT ---
EXAM DATE/TIME: 11/29/2016 21:35 [facility] COMPARISON: No previous studies available for comparison. INDICATIONS : Left chest tube. MEDICAL HISTORY : shortness of breath SURGICAL HISTORY : cervical fusion ENCOUNTER: Subsequent ACUITY: 1 day PAIN SCORE: 8/10 LOCATION: Left upper chest FINDINGS: A single view of the chest demonstrates bilateral mostly basilar airspace disease. Left chest tube pr esent. The loculated fluid collection remains in the upper left hemithorax similar to earlier examina tion. Heart size enlarged. No pneumothorax. Previous fusion cervical spine. CONCLUSION: 1. Stable exam compared with earlier today. Left chest tube with stable loculated fluid in upper left hemithorax. Relatively stable basilar and perihilar airspace disease. Zachery Aquino MD on November 29, 2016 at 22:33 Board Certified Radiologist. This report was verified electronically.
[2016-11-30] VITALS (11 sets, daily range): BP systolic 142–184; BP diastolic 71–86; PULSE 103–120; RESP 17–22; TEMP 96–98.4; O2SAT 93–98
[2016-11-30] MEDS: RESP: ALBUTEROL 2.5 MG/IPRATROPIUM 0.5 MG NEB (SCH) NEB ×3 (04:00→20:39)
[2016-11-30 04:48] LABS: HEMATOCRIT 26.3 % (39.0-51.0); MEAN CELL VOLUME 104.7 FL (80.0-100.0); MEAN CORPUSCULAR HEMOGLOBIN 37.3 PG (27.0-34.0); MEAN CORPUSCULAR HGB CONC 35.7 % (32.0-36.0); PLATELET COUNT 178 TH/MM3 (150-450); RED BLOOD COUNT 2.52 MIL/MM3 (4.50-5.90); RED CELL DISTRIBUTION WIDTH 12.2 % (11.6-17.2); REVIEW FLAG FINAL; WHITE BLOOD COUNT 9.6 TH/MM3 (4.0-11.0)
[2016-11-30 05:03] LABS: BICARBONATE 23.4 MEQ/L (21.0-32.0); MAGNESIUM 2.2 MG/DL (1.5-2.5); POTASSIUM 3.4 MEQ/L (3.5-5.1)
[2016-11-30 05:04] LABS: PROTHROMBIN TIME - PATIENT 10.8 SEC (9.8-11.6)
[2016-11-30] MEDS: HYDROmorphone HCL PF 1 MG/ML VIAL IVP PRN (05:31)
[2016-11-30] MEDS: IBUPROFEN 800 MG TAB PO SCH ×4 (05:31→23:55)
[2016-11-30] MEDS: ACETAMINOPHEN 1000 MG/100 ML VIAL IV SCH ×3 (05:34→20:25)
--- NOTE | 2016-11-30 06:31 | RADRPT ---
EXAM DATE/TIME: 11/30/2016 05:53 [facility] COMPARISON: CHEST SINGLE AP, November 29, 2016, 21:35. INDICATIONS : Coughing, short of breath, left chest tube MEDICAL HISTORY : pneumothorax SURGICAL HISTORY : left chest tube ENCOUNTER: Subsequent ACUITY: 4 - 6 days PAIN SCORE: 10/10 LOCATION: Left chest FINDINGS: Stable left upper loculated effusion with chest tube in place. Left lower lobe airspace disease and p atchy right lung airspace disease is stable. Cardiomegaly. ACDF hardware overlies the cervical spine. CONCLUSION: No significant change has occurred. Dk Hand MD on November 30, 2016 at 6:29 Board Certified Radiologist. This report was verified electronically.
[2016-11-30] MEDS ORDERED: POTASSIUM CHLORIDE 20 MEQ CONTROLLED RELEASE TAB PO ONE (07:30)
[2016-11-30] MEDS: LACTULOSE SYRUP 20 GM/30 ML CUP PO SCH (08:32)
[2016-11-30] MEDS: ENALAPRILAT 1.25 MG/ML VIAL IV PRN ×2 (08:33→20:24)
[2016-11-30] MEDS ORDERED: LIDOCAINE 1%/EPINEPHrine 1:100,000 SOLN 20 ML VIAL ONE (08:58)
[2016-11-30] MEDS: GABAPENTIN 300 MG CAP PO SCH ×3 (09:00→17:14)
[2016-11-30] MEDS ORDERED: MIDAZOLAM HCL 5 MG/5 ML VIAL ONE (09:54)
[2016-11-30] MEDS ORDERED: fentaNYL CITRATE 250 MCG/5 ML AMP ONE (09:54)
--- NOTE | 2016-11-30 11:10 | HHI.PR ---
Subjective Subjective Notes PTD: 5 1130: Patient is in IR at this time. 1330: Called by nursing staff that patient has returned to his room after chest tube placement in IR and they are worried as he is very agitated at this time . In to evaluate patient, and he is found in bed. He has pulled out his IV, and his brand new left apical pigtail chest tube. He is confused, and states "I just want to go home, please just let me go home. " Attempt to reorient patient. Objective Vitals/I&O Vital Signs Date Time Temp Pulse Resp B/P Pulse Ox O2 Delivery O2 Flow Rate FiO2 11/30/16 10:57 97.5 111 20 142/73 93 11/30/16 08:45 Nasal Cannula 2.00 Humidified Labs Laboratory Tests Test 11/30/16 03:28 White Blood Count 9.6 Red Blood Count 2.52 Hemoglobin 9.4 Hematocrit 26.3 Mean Corpuscular Volume 104.7 Mean Corpuscular Hemoglobin 37.3 Mean Corpuscular Hemoglobin 35.7 Concent Red Cell Distribution Width 12.2 Platelet Count 178 Mean Platelet Volume 8.2 Prothrombin Time 10.8 Prothromb Time International 1.0 Ratio Activated Partial 32.0 Thromboplast Time Sodium Level 132 Potassium Level 3.4 Chloride Level 97 Carbon Dioxide Level 23.4 Anion Gap 12 Blood Urea Nitrogen 14 Creatinine 0.40 Estimat Glomerular Filtration 217 Rate Random Glucose 90 Calcium Level 8.5 Magnesium Level 2.2 Radiology Last Impressions Chest X-Ray 11/27/16 0600 Signed Impressions: Service Date/Time: Sunday, November 27, 2016 06:05 - CONCLUSION: 1. Left chest tube remains present and no pneumothorax is visualized. 2. There is a small left pleural effusion with associated volume loss and/or consolidation at the lung base. Neel Mahan MD Pelvis X-Ray 11/25/161950 Signed Impressions: Service Date/Time: November 19:44 - CONCLUSION: Bilateral pubic rami and left sacral fractures. Neel Moyer MD Head CT 11/25/161950 Signed Impressions: Service Date/Time: November 20:06 - CONCLUSION: Motion degraded study without convincing evidence of acute intracranial hemorrhage. Followup noncontrasted head CT suggested in 24 hours. Neel Moyer MD Chest CT 11/25/161950 Signed Impressions: Service Date/Time: November 20:10 - CONCLUSION: Multiple left rib fractures with moderate left pneumothorax, tiny left hemothorax and probable contusion of the left lower lobe. Neel Moyer MD Cervical Spine CT 11/25/161950 Signed Impressions: Service Date/Time: November 20:06 - CONCLUSION: 1. No fracture or subluxation of the cervical spine. 2. Degenerative changes with a chronic appearing disc osteophyte complex and uncovertebral/facet osteoarthritis causing severe spinal and bilateral foraminal stenosis at C6-C7. 3. Small, age-indeterminate posterior disc protrusion at C7/T1 causing mild spinal stenosis. Neel Moyer MD Abdomen/Pelvis CT 11/25/161950 Signed Impressions: Service Date/Time: November 20:10 - CONCLUSION: 1. No evidence of acute visceral or injury. 2. Fractures of the left body and ala of the sacrum with mildly displaced fracturing in the region of the left S2/S3 foramen. 3. Bilateral superior and inferior pubic rami fractures and a nondisplaced fracture of the left acetabulum. 4. Small presacral and left iliopsoas hematomas. I don't see active bleeding. Neel Moyer MD Thoracic Spine CT 11/25/16 0000 Signed Impressions: Service Date/Time: November 20:10 - CONCLUSION: Left T12 transverse process and facet fracture, minimally displaced. Multiple left posterior rib fractures and placed refer to the chest CT report. Thoracic vertebral bodies are intact. No subluxations. Neel Moyer MD Lumbar Spine CT 11/25/16 0000 Signed Impressions: Service Date/Time: November 20:10 - CONCLUSION: 1. Minimally to mildly displaced left transverse process fractures of L1-L4. 2. Multilevel degenerative changes as above. Large right paracentral disc fragment at L4/L5, probably nonacute. Neel Moyer MD Narrative Exam GENERAL: This is a 58-year-old man lying in bed slightly confused and restless at this time. SKIN: Warm and dry. HEAD: Atraumatic. Normocephalic. EYES: PERRLA ENT: No nasal bleeding or discharge. Mucous membranes pink and moist. NECK: Trachea midline. No JVD. CARDIOVASCULAR: Regular rate and rhythm. RESPIRATORY: 4 L nasal cannula. Sats equal 92%. LEFT CT in place to Pleura- vac drainage system / waterseal. (Patient has just self removed his new left apical pigtail chest tube in a bout of confusion ) No accessory muscle use. Lungs with rhonchi to auscultation in all lobes. Breath sounds equal bilaterally. No distress or dyspnea. GASTROINTESTINAL: BS + x 4 quads. Abdomen soft, non-tender, nondistended. MUSCULOSKELETAL: Extremities without cyanosis, or edema. + peripheral pulses x 4 extremities. Warm with good capillary refill and sensation. MAEW. NEUROLOGICAL: Awake and confused. Normal speech and pattern. A/P Problem List: (1) Pelvic fracture (2) Traumatic pneumothorax (3) Fall from ladder (4) Lung contusion (5) Multiple rib fractures Assessment and Plan CROW: This is a 58-year-old male who sustained a fall from approximately 20 feet off a ladder. He fell onto his back. No LOC. GCS = 14. He was originally managed closely in the ICU, however has been transferred to the [facility] floor. Hx: EtOH abuse INJURIES: Multiple LEFT rib fxs LEFT PTX Tiny LEFT hempPTX (w/ CT LEFT lower lobe contusion (spinal stenosis C6-C7) (Disk protrusion C7-T1- spinal stenosis) LEFT S2-S3 foramen fx (mild displaced) BILAT superior and inferior pubic rami fx (non-op) LEFT sacral Fx (non-op) LEFT acetabulum fx (non-displaced) (non-op) Consults: CCM, orthopedics, IR, HEPAS. Diet: Regular diet. Tolerating po diet. Encourage good po intake with each meal. Pulmonary: Encourage good pulmonary toileting. IS at bedside and pt encouraged to use. Added acapella and a EZpap. Rationale for use and the importance of use explained to patient and family at the bedside. All verbalized understanding. Duonebs q 2 PRN ordered however patient has been refusing.. CT thorax shows loculated effusion in the LEFT upper lobe. Patient went to IR this morning. Loculated effusion in left upper lobe drained for approximately 250 cc. Left upper pigtail chest tube catheter placed in IR, however patient self removed this chest tube in a bout of confusion. Stat chest x-ray obtained - there is no pneumothorax status post removal of pigtail tube. The previously identified loculated pleural fluid collection within the left apex is decreased in size. There is scattered patchiness bilaterally PAIN Management: Oxycodone po 3 hours. Dilaudid IV for breakthrough pain. Added ibuprofen scheduled. Added Neurontin 300mg TID. Activity: OOB with assist. PT and OT ordered. (WBAT RLE; TTWB LLE) discussed the importance of the patient mobilizing out of bed. Patient has been adamantly refusing to get out of bed. According to staff he is screaming and refusing every time they make any attempt to get him out of bed. Again discussed the importance of mobilizing out of bed with the patient in the detrimental effects if he does not comply. GI prophylaxis: Pepcid hs. Bowel regimen: Roseanne-colace and MOM. Lactulose q day. BM x 1. DVT prophylaxis: Mechanical VTE with SCDs. Chemical management with Lovenox 30 q 12h DC Planning: Case management consulted for assistance with final discharge disposition. [facility] is following the patient for admission. Patient has become increasingly confused. He has a history of alcohol abuse. We have provided a beer with each meal tray, however staff has notified me that he is refusing to drink the beer. Ativan 1 mg 1 stat given. Consult to help us to assist in medical management with possible DT withdrawal from alcohol. Emotional support provided to patient at bedside and plan of care discussed. Discussed with RN at bedside. Patient is hemodynamically stable and being managed on the med/surg floor. The exam, history, and the medical decision-making described in the above note were completed with the assistance of the mid-level provider. I reviewed and agree with the findings presented. I attest that I had a [id number] encounter with the patient on the same day, and personally performed and documented my assessment and findings in the medical record. Problem Qualifiers (1) Pelvic fracture: Qualified Code: S32.810A - Multiple closed fractures of pelvis with stable disruption of pelvic ruby, initial encounter (2) Traumatic pneumothorax: Qualified Code: S27.0XXA - Traumatic pneumothorax, initial encounter (3) Fall from ladder: Qualified Code: W11.XXXA - Fall from ladder, initial encounter (4) Lung contusion: Qualified Code: S27.321A - Contusion of left lung, initial encounter (5) Multiple rib fractures: Qualified Code: S22.42XA - Closed fracture of multiple ribs of left side, initial encounter Shoshana Donovan Nov 30, 2016 11:10 Tyshawn Hollins MD Dec 04, 2016 14:29
--- NOTE | 2016-11-30 11:16 | RADRPT ---
EXAM DATE/TIME: 11/30/2016 10:32 [facility] COMPARISON: No previous studies available for comparison. INDICATIONS : Pelvic pain after trauma. Evaluate pelvic fracture. MEDICAL HISTORY : None. SURGICAL HISTORY : None. ENCOUNTER: Subsequent ACUITY: 4 - 6 days PAIN SCORE: 10/10 LOCATION: Pelvis. FINDINGS: Multiple views of the pelvis were obtained and demonstrate mildly comminuted fracture deformities of the right superior and inferior pubic rami. There is a fracture of the inferior left pubic rami as we ll. There is also an apparent nondisplaced fracture through the left side of the sacrum. The hips oma ear intact bilaterally. CONCLUSION: 1. Bilateral pubic rami fractures. 2. Apparent nondisplaced fracture through the left sacrum. Jovan Chu MD on November 30, 2016 at 11:13 Board Certified Radiologist. This report was verified electronically.
--- NOTE | 2016-11-30 11:21 | RADRPT ---
EXAM DATE/TIME: 11/30/2016 10:36 [facility] COMPARISON: CHEST SINGLE AP, November 30, 2016, 5:53. INDICATIONS: Evaluate post left side chest tube placement. MEDICAL HISTORY: Pneumothorax SURGICAL HISTORY: Left chest tube. ENCOUNTER: Initial ACUITY: 1 day PAIN SCORE: 5/10 LOCATION: Left upper chest FINDINGS: A small 10 Danish non-locking pigtail tube has been placed in the upper chest for drainage of the loc ulated pleural effusion. This loculated pleural effusion has decreased in overall volume compared to the previous examination. There is no pneumothorax status post chest tube placement. The indwellin g larger left chest tube is stable in appearance compared to the previous examination. Patchy infilt rates are noted bilaterally consistent with possible pneumonia and/or atelectasis. The heart is enla rged. Hardware is noted within the cervical spine. 1 CONCLUSION: 1. No evidence of pneumothorax status post placement of 10 Danish non-locking pigtail tube in the le ft upper lung field. There has been significant decrease in the size of the loculated pleural effusi on status post chest tube placement. 2. Scattered patchy infiltrates bilaterally consistent with atelectasis and/or pneumonia. 3. Stable cardiomegaly. Drake Corona MD on November 30, 2016 at 10:57 Board Certified Radiologist. This report was verified electronically.
[2016-11-30] MEDS: DOCUSATE SODIUM 50 MG/SENNA 8.6 MG TAB PO SCH ×2 (12:21→20:24)
[2016-11-30] MEDS: NICOTINE 14 MG/24 HR PATCH TD SCH (12:22)
--- NOTE | 2016-11-30 12:24 | RADRPT ---
EXAM DATE/TIME: 11/30/2016 09:48 INDICATIONS : Left sided pleural effusions. SEDATION TIME: 20 MEDICATION(S): 1.) 1.5 mg midazolam (Versed) IV 2.) 75 mcg fentanyl (Sublimaze) IV DEVICE(S): 1.) 10 Fr Zaki MEDICAL HISTORY : None. SURGICAL HISTORY : None. ENCOUNTER: Initial ACUITY: 1 day PAIN SCORE: 6/10 LOCATION: Left chest PROCEDURE: 1.) Conscious sedation with continuous EKG and oximetry monitoring. 2.) EKG and oximetry remained stable throughout the procedure. PROCEDURE : 1. CT guided chest tube placement. 2. Conscious sedation with continuous EKG and oximetry monitoring. The risks, benefits and alternatives to the procedure were explained and verbal and written consent w as obtained. The site was prepped in sterile fashion. Full sterile technique was used, including ca p, mask, sterile gloves and gown and a large sterile sheet. Hand hygiene and 2% chlorhexidine and/or betadine/alcohol prep was utilized per protocol for cutaneous antisepsis. The skin and subcutaneous tissues were infiltrated with local anesthetic solution. With CT guidance the chest was punctured and the prescribed catheter was placed in the lung apex. Wal l suction was applied. Post procedure images demonstrate satisfactory position of the tube. The cat heter was sutured in place and a Percu-Stay was applied. Conscious sedation was performed with the prescribed dosages and duration as above. The patient jessica ated the procedure well and there were no complications. EKG and oximetry remained stable throughout the procedure. The patient was sent to post anesthesia recovery in stable condition. CONCLUSION: Uncomplicated chest tube placement as above. Drake Corona MD on November 30, 2016 at 12:22 Board Certified Radiologist. This report was verified electronically.
[2016-11-30] MEDS: RESP: ALBUTEROL 2.5 MG/IPRATROPIUM 0.5 MG NEB (PRN) NEB (13:38)
[2016-11-30] MEDS ORDERED: LORazepam 2 MG/ML VIAL IV ONE (14:00)
--- NOTE | 2016-11-30 14:32 | RADRPT ---
EXAM DATE/TIME: 11/30/2016 13:50 [facility] COMPARISON: CHEST EXPIRATION ONLY, November 30, 2016, 10:36. CHEST SINGLE AP, November 30, 2016, 5:53. INDICATIONS : Patient pulled out left pigtail chest tube. MEDICAL HISTORY : Rib Fx, Pneumothorax SURGICAL HISTORY : Chest tube. ENCOUNTER: Subsequent ACUITY: 4 - 6 days PAIN SCORE: 9/10 LOCATION: Bilateral chest FINDINGS: The pigtail tube placed earlier this same day has been removed. The loculated collection of fluid wi thin the left apex is significantly decreased in size compared to the previous film done earlier this same day. There is no pneumothorax. The large left chest tube remains in good position. Scattered p atchy infiltrates are again noted bilaterally. CONCLUSION: 1. No pneumothorax status post removal of pigtail tube. The previously identified loculated pleural fluid collection within the left apex is markedly decreased in size. 2. Scattered patchiness bilaterally consistent with atelectasis and/or infiltrates. Drake Corona MD on November 30, 2016 at 14:19 Board Certified Radiologist. This report was verified electronically.
[2016-11-30] MEDS ORDERED: LORazepam 1 MG TAB PO PRN (15:15)
[2016-11-30] MEDS ORDERED: LORazepam 2 MG/ML VIAL IV PUSH PRN ×4 (15:15)
[2016-11-30] MEDS ORDERED: LORazepam 2 MG TAB PO PRN (15:15)
[2016-11-30] MEDS ORDERED: FLUMAZENIL 0.5 MG/5 ML VIAL IV PUSH PRN (15:15)
--- NOTE | 2016-11-30 16:25 | PD.CONS ---
HPI Service [facility] Consult Requested By Trauma general surgery Reason for Consult Medical management EtOH withdrawals, delirium Primary Care Physician Unknown Diagnoses: History of Present Illness 58-year-old gentleman reportedly fell 20 feet off of a ladder onto his back without loss of consciousness. He may have been drinking. He was brought in as a trauma alert due to his age and the height of his fall. Patient arrived alert with mild confusion his [place] Coma Scale was 14 complaining of back pain and left chest pain. Patient had multiple left-sided rib fractures with hemopneumothorax. Chest tube inserted in the trauma bay with x-ray confirming position. Patient also had multiple pelvic fractures with sacral fracture nondisplaced acetabular fracture. Initially managed in critical care, improving clinically and was transferred to medical-surgical floor. Consulted for medical management of EtOH. Injuries Multiple LEFT rib fxs LEFT PTX Tiny LEFT hempPTX (w/ CT LEFT lower lobe contusion (spinal stenosis C6-C7) (Disk protrusion C7-T1- spinal stenosis) LEFT S2-S3 foramen fx (mild displaced) BILAT superior and inferior pubic rami fx (non-op) LEFT sacral Fx (non-op) LEFT acetabulum fx (non-displaced) (non-op) On examination, patient is very confused but able to respond to some questions and commands. Noted with some hallucinations. Ex- at the bedside, states patient is been drinking every day about 10 beers per day. She had actually brought the patient beer and made him drink while patient was laying in bed. As per RN, patient trying to pull out his chest tube, binder in place. On 2 L nasal cannula. Patient just had his nebulizer treatment. Denies pain and discomfort. Denies SOB/ dyspnea, but patient sounded with upper respiratory congestion. Denies chest pain, palpitations, headaches, dizziness. Denies fevers, chills, n/v/d. Review of Systems Other Negative except for what is noted on history of present illness. Past Family Social History Allergies: Coded Allergies: Penicillin (Verified Allergy, Unknown, 11/25/16) Past Medical History Hypertension EtOH Past Surgical History Multiple back surgeries Neck surgery Reported Medications None Active Ordered Medications Current Medications Medications (Trade) Dose Ordered Sig/Jason Route Start Time Stop Time Status Last Admin (NS Flush) 2 ml UNSCH PRN IVF 11/25/16 20:45 11/28/16 19:33 (Vasotec Inj) 1.25 mg Q8H PRN IV 11/25/16 20:45 11/30/16 08:33 (Zofran Inj) 4 mg Q6H PRN IV 11/25/16 20:45 11/28/16 15:59 (Lovenox Inj) 30 mg Q12H SQ 11/25/16 22:00 11/29/16 21:01 (Robaxin) 750 mg TID PRN PO 11/25/16 22:45 11/28/16 19:33 (Pill Splitter) 1 ea UNSCH PRN OTHER 11/25/16 22:45 (Pepcid) 20 mg HS PO 11/26/16 21:00 11/29/16 21:01 (Habitrol 14 Mg Patch.24 Hr) 1 patch DAILY TD 11/26/16 10:00 11/30/16 12:22 Miscellaneous Information 1 HS TD 11/26/16 21:00 11/29/16 21:00 (Ofirmev Inj) 1,000 mg Q8HR IV 11/26/16 15:00 11/30/16 14:09 (Dilaudid Pf Inj) 1 mg Q3H PRN IVP 11/26/16 18:00 11/30/16 05:31 (Roxicodone) 5 mg Q4H PRN PO 11/26/16 16:00 11/26/16 18:13 (Roxicodone) 10 mg Q4H PRN PO 11/26/16 16:00 11/29/16 23:21 (Milk Of Magnesia Liq) 30 ml HS PO 11/27/16 21:00 11/29/16 21:01 (Lactulose Liq) 30 ml DAILY PO 11/27/16 09:00 11/27/16 08:19 (Roseanne-Colace) 2 tab BID PO 11/27/16 09:00 11/30/16 12:21 (Motrin) 800 mg Q6HR PO 11/29/16 12:00 11/30/16 12:22 (Neurontin) 300 mg TID PO 11/29/16 13:00 11/30/16 12:21 (Romazicon Inj) 0.2 mg Q1M PRN IV PUSH 11/30/16 15:15 (Ativan) 1 mg Q4H PRN PO 11/30/16 15:15 (Ativan Inj) 1 mg Q4H PRN IV PUSH 11/30/16 15:15 (Ativan) 2 mg Q2H PRN PO 11/30/16 15:15 (Ativan Inj) 2 mg Q2H PRN IV PUSH 11/30/16 15:15 (Ativan Inj) 2 mg Q1H PRN IV PUSH 11/30/16 15:15 (Ativan Inj) 2 mg Q15M PRN IV PUSH 11/30/16 15:15 Family History Patient denies any significant family medical history Social History Alcohol use 10 beers per day Tobacco use the cigarettes Denies illicit drug use Physical Exam Vital Signs Vital Signs Date Time Temp Pulse Resp B/P Pulse Ox O2 Delivery O2 Flow Rate FiO2 11/30/16 14:39 20 11/30/16 13:39 96 Nasal Cannula 5.00 11/30/16 13:22 18 11/30/16 13:19 98.1 112 17 174/83 98 11/30/16 11:42 112 22 169/82 97 11/30/16 11:12 103 19 160/71 98 11/30/16 10:57 97.5 111 20 142/73 93 11/30/16 08:45 Nasal Cannula 2.00 Humidified 11/30/16 08:00 97.6 112 19 182/80 97 11/30/16 03:54 97.2 108 21 178/81 98 11/29/16 23:46 97.3 78 21 177/81 97 11/29/16 20:00 96.8 119 21 179/81 96 11/29/16 16:00 98.3 110 19 175/89 95 Physical Exam GENERAL: This is a well-nourished, well-developed patient, in no apparent distress. SKIN: No rashes, ecchymoses or lesions. Cool and dry. HEAD: Atraumatic. Normocephalic. No temporal or scalp tenderness. EYES: Pupils equal round and reactive. Extraocular motions intact. No scleral icterus. No injection or drainage. ENT: Nose without bleeding. Throat without erythema. Uvula midline. Airway patent. NECK: Trachea midline. No JVD or lymphadenopathy. Supple, nontender, no meningeal signs. CARDIOVASCULAR: Regular rate and rhythm without murmurs, gallops, or rubs. RESPIRATORY: Coarse breath sounds throughout. O2 nasal cannula use. No accessory muscle use. Left chest tube in place to waterseal. No air leak noted. GASTROINTESTINAL: Abdomen soft, non-tender, nondistended. BS 4. No guarding. MUSCULOSKELETAL: Extremities without clubbing, cyanosis, or edema. No joint tenderness, effusion, or edema noted. No calf tenderness. Negative Homans sign bilaterally. NEUROLOGICAL: Awake and alert. Confuse able to respond to questions and commands. Motor and sensory grossly within normal limits. Moves all extremities . Normal speech. Laboratory Laboratory Tests Test 11/30/16 03:28 White Blood Count 9.6 Red Blood Count 2.52 Hemoglobin 9.4 Hematocrit 26.3 Mean Corpuscular Volume 104.7 Mean Corpuscular Hemoglobin 37.3 Mean Corpuscular Hemoglobin 35.7 Concent Red Cell Distribution Width 12.2 Platelet Count 178 Mean Platelet Volume 8.2 Prothrombin Time 10.8 Prothromb Time International 1.0 Ratio Activated Partial 32.0 Thromboplast Time Sodium Level 132 Potassium Level 3.4 Chloride Level 97 Carbon Dioxide Level 23.4 Anion Gap 12 Blood Urea Nitrogen 14 Creatinine 0.40 Estimat Glomerular Filtration 217 Rate Random Glucose 90 Calcium Level 8.5 Magnesium Level 2.2 Result Diagram: 11/30/16 0328 11/30/16 0328 Imaging Last Impressions Chest X-Ray 11/30/16 0600 Signed Impressions: Service Date/Time: Wednesday, November 30, 2016 05:53 - CONCLUSION: No significant change has occurred. Dk Hand MD Pelvis X-Ray 11/30/16 0000 Signed Impressions: Service Date/Time: Wednesday, November 30, 2016 10:32 - CONCLUSION: 1. Bilateral pubic rami fractures. 2. Apparent nondisplaced fracture through the left sacrum. Jovan Chu MD Chest Tube Insertion 11/30/16 0000 Signed Impressions: Service Date/Time: Wednesday, November 30, 2016 09:48 - CONCLUSION: Uncomplicated chest tube placement as above. Drake Corona MD Chest CT 11/28/16 0000 Signed Impressions: Service Date/Time: Monday, November 28, 2016 13:46 - CONCLUSION: 1. Abnormality in the left upper hemithorax corresponds with loculated effusion. 2. Left- sided chest tube remains in the left major fissure. 3. Tiny pneumothorax on the right. 4. Scattered parenchymal densities throughout the lungs including left basilar consolidation. Melecio Rodriguez MD Head CT 11/25/161950 Signed Impressions: Service Date/Time: November 20:06 - CONCLUSION: Motion degraded study without convincing evidence of acute intracranial hemorrhage. Followup noncontrasted head CT suggested in 24 hours. Neel Moyer MD Cervical Spine CT 11/25/161950 Signed Impressions: Service Date/Time: November 20:06 - CONCLUSION: 1. No fracture or subluxation of the cervical spine. 2. Degenerative changes with a chronic appearing disc osteophyte complex and uncovertebral/facet osteoarthritis causing severe spinal and bilateral foraminal stenosis at C6-C7. 3. Small, age-indeterminate posterior disc protrusion at C7/T1 causing mild spinal stenosis. Neel Moyer MD Abdomen/Pelvis CT 11/25/161950 Signed Impressions: Service Date/Time: November 20:10 - CONCLUSION: 1. No evidence of acute visceral or injury. 2. Fractures of the left body and ala of the sacrum with mildly displaced fracturing in the region of the left S2/S3 foramen. 3. Bilateral superior and inferior pubic rami fractures and a nondisplaced fracture of the left acetabulum. 4. Small presacral and left iliopsoas hematomas. I don't see active bleeding. Neel Moyer MD Thoracic Spine CT 11/25/16 0000 Signed Impressions: Service Date/Time: November 20:10 - CONCLUSION: Left T12 transverse process and facet fracture, minimally displaced. Multiple left posterior rib fractures and placed refer to the chest CT report. Thoracic vertebral bodies are intact. No subluxations. Neel Moyer MD Lumbar Spine CT 11/25/16 0000 Signed Impressions: Service Date/Time: November 20:10 - CONCLUSION: 1. Minimally to mildly displaced left transverse process fractures of L1-L4. 2. Multilevel degenerative changes as above. Large right paracentral disc fragment at L4/L5, probably nonacute. Neel Moyer MD Assessment and Plan Problem List: (1) Multiple rib fractures ICD Code: S22.49XA Status: Acute (2) Lung contusion ICD Code: S27.329A Status: Acute (3) Fall from ladder ICD Code: W11.XXXA Status: Acute (4) Traumatic pneumothorax ICD Code: S27.0XXA Status: Acute (5) Pelvic fracture ICD Code: S32.9XXA Status: Acute (6) HTN (hypertension) ICD Code: I10 Status: Acute (7) EtOH dependence ICD Code: F10.20 Status: Acute Assessment and Plan Pt. is 58-year-old gentleman reportedly fell 20 feet off of a ladder onto his back without loss of consciousness. He may have been drinking. He was brought in as a trauma alert due to his age and the height of his fall. Patient arrived alert with mild confusion his [place] Coma Scale was 14 complaining of back pain and left chest pain. Patient had multiple left-sided rib fractures with hemopneumothorax. Chest tube inserted in the trauma bay with x-ray confirming position. Patient also had multiple pelvic fractures with sacral fracture nondisplaced acetabular fracture. Initially managed in critical care, improving clinically and was transferred to medical-surgical floor. Consulted for medical management of EtOH. EtOH abuse, dependence - drinks 10 beers a day. Elevated liver enzymes. - CIWA protocol - Nothing by mouth for now. Patient appears to be alert but confused. Increased risk for aspiration. Speech to evaluate. Pneumonia - CXR 10:36 AM 11/30/15 no evidence of pneumothorax status post placement of 10 [place] non-locking pigtail tube in the left upper lung field. There has been significant decrease in the size of the loculated pleural effusion status post chest tube placement. Scattered patchy infiltrates bilaterally consistent with atelectasis and/or pneumonia stable cardiomegaly. - Will start Levaquin IV. - Follow-up chest x-ray in few days. - Nebulizer treatments scheduled. - Monitor respiratory status. Macrocytic anemia - secondary to EtOH dependence - Thiamine, folate Hyponatremia - slightly improved from previous 131 --> 132 - Continue to monitor. Status post fall, multiple rib fractures, pubic rib fractures, pelvic fractures with sacral fracture nondisplaced acetabular fracture - Orthopedic following patient. Weightbearing status was ordered. Recommended toe-touch weightbearing on the left leg. He may weight bear as tolerated on the right leg for transfers. -Pain management Hemothorax - continue chest tube management per primary team. - 2 L nasal cannula Tobacco use -nicotine patch HTN - more likely related to pain not in any pain meds as an outpatient. - On Vasotec when necessary. Continue to monitor BP trend DVT prop Lovenox GI famotidine Written by Casimiro Craig, acting as scribe for Dr. Lomax on 11/30/16 at 15:35. The documentation accurately reflects the work performed [id number] by me on at 1535. Code Status Full code Discussed Condition With Patient, ex-, nursing Problem Qualifiers (1) Multiple rib fractures: Qualified Code: S22.42XA - Closed fracture of multiple ribs of left side, initial encounter (2) Lung contusion: Qualified Code: S27.321A - Contusion of left lung, initial encounter (3) Fall from ladder: Qualified Code: W11.XXXA - Fall from ladder, initial encounter (4) Traumatic pneumothorax: Qualified Code: S27.0XXA - Traumatic pneumothorax, initial encounter (5) Pelvic fracture: Qualified Code: S32.810A - Multiple closed fractures of pelvis with stable disruption of pelvic [place], initial encounter Casimiro Russo Nov 30, 2016 16:25 Simon Lomax MD Nov 30, 2016 19:07
[2016-11-30] MEDS ORDERED: FOLIC ACID 1 MG TAB PO ONE (16:30)
[2016-11-30] MEDS ORDERED: THIAMINE INJ 100 MG in SODIUM CHLORIDE 0.9% INJ 100 ML IV ONE (17:00)
[2016-11-30] MEDS: LEVOFLOXACIN 750 MG PREMIX INJ 150 ML IV SCH (17:12)
[2016-11-30] MEDS: LISINOPRIL 10 MG TAB PO SCH (17:19)
[2016-11-30] MEDS: SODIUM CHLOR 0.9% 1000 ML INJ 1,000 ML IV SCH ×2 (17:20→23:56)
[2016-11-30] MEDS: MAGNESIUM HYDROXIDE SUSP 30 ML CUP PO SCH (20:24)
[2016-11-30] MEDS: FAMOTIDINE 20 MG TAB PO SCH (20:24)
[2016-11-30] MEDS: SODIUM CHLORIDE 0.9% FLUSH 5 ML FLUSH IVF PRN (20:25)
[2016-11-30] MEDS: REMOVE OLD NICODERM (NICOTINE) PATCH TD SCH (20:25)
[2016-11-30] MEDS: ENOXAPARIN SODIUM 30 MG/0.3 ML SYRINGE SQ SCH (20:26)
[2016-12-01] MEDS: RESP: ALBUTEROL 2.5 MG/IPRATROPIUM 0.5 MG NEB (PRN) NEB ×2 (00:34→16:27)
[2016-12-01 00:37] VITALS: O2SAT 97
[2016-12-01 04:00] VITALS: BP 170/73; PULSE 117; RESP 20; TEMP 96.8; O2SAT 93
[2016-12-01] MEDS: IBUPROFEN 800 MG TAB PO SCH ×3 (04:31→17:26)
[2016-12-01] MEDS: ACETAMINOPHEN 1000 MG/100 ML VIAL IV SCH ×3 (04:31→21:30)
[2016-12-01] MEDS: RESP: ALBUTEROL 2.5 MG/IPRATROPIUM 0.5 MG NEB (SCH) NEB ×5 (07:36→20:17)
[2016-12-01 07:38] VITALS: O2SAT 94
[2016-12-01 08:00] VITALS: BP 195/90; PULSE 109; RESP 19; TEMP 97.7; O2SAT 95
[2016-12-01] MEDS: LACTULOSE SYRUP 20 GM/30 ML CUP PO SCH (09:16)
[2016-12-01] MEDS: GABAPENTIN 300 MG CAP PO SCH ×3 (09:16→17:26)
[2016-12-01] MEDS: DOCUSATE SODIUM 50 MG/SENNA 8.6 MG TAB PO SCH ×2 (09:16→21:31)
[2016-12-01] MEDS: LISINOPRIL 10 MG TAB PO SCH (09:16)
[2016-12-01] MEDS: ENOXAPARIN SODIUM 30 MG/0.3 ML SYRINGE SQ SCH ×2 (09:18→21:31)
[2016-12-01] MEDS: NICOTINE 14 MG/24 HR PATCH TD SCH (09:18)
--- NOTE | 2016-12-01 11:18 | RADRPT ---
EXAM DATE/TIME: 12/01/2016 10:37 [facility] COMPARISON: CHEST SINGLE AP, November 30, 2016, 13:50. INDICATIONS: Short of breath. MEDICAL HISTORY: None. SURGICAL HISTORY: Chest tube. ENCOUNTER: Initial ACUITY: 4 - 6 days PAIN SCORE: Non-responsive. LOCATION: Bilateral chest FINDINGS: Chest tube is in place. Small amount of effusion is identified. Minimal consolidative changes are p resent in the left base. Minimal parenchymal changes are noted. No evidence for pneumothorax, chest tube in good position. CONCLUSION: Increasing bibasilar parenchymal changes. Ralph Garcias MD FACR on December 01, 2016 at 11:10 Board Certified Radiologist. This report was verified electronically.
[2016-12-01] MEDS: ENALAPRILAT 1.25 MG/ML VIAL IV PRN (11:28)
[2016-12-01] MEDS: SODIUM CHLORIDE 0.9% FLUSH 5 ML FLUSH IVF PRN (11:28)
--- NOTE | 2016-12-01 11:44 | HHI.PR ---
Subjective Remarks Patient remained confused. He is hallucinating. He is requiring restraints. Still tachypneic. Blood pressure uncontrolled. Objective Vitals Vital Signs Date Time Temp Pulse Resp B/P Pulse Ox O2 Delivery O2 Flow Rate FiO2 12/01/16 08:00 97.7 109 19 195/90 95 12/01/16 07:38 94 Nasal Cannula 4.00 12/01/16 05:01 20 12/01/16 05:01 20 12/01/16 04:00 96.8 117 20 170/73 93 12/01/16 01:27 20 12/01/16 00:37 97 Nasal Cannula 5.00 11/30/16 23:30 Nasal Cannula 5.00 Humidified 11/30/16 23:30 96.5 116 21 173/86 96 11/30/16 20:39 98 Nasal Cannula 5.00 11/30/16 20:00 96.0 120 21 184/86 95 11/30/16 20:00 Nasal Cannula 5.00 Humidified 11/30/16 16:00 98.4 112 18 174/83 98 11/30/16 13:39 96 Nasal Cannula 5.00 11/30/16 13:19 98.1 112 17 174/83 98 I/O 11/30/16 11/30/16 11/30/16 12/01/16 12/01/16 12/01/16 07:00 15:00 23:00 07:00 15:00 23:00 Intake Total 120 ml 580 ml 0 ml 971 ml Output Total 750 ml 300 ml 500 ml 500 ml Balance -630 ml 280 ml -500 ml 471 ml Intake Oral 120 ml 480 ml 0 ml 150 ml IV Total 100 ml 821 ml Output Urine Total 750 ml 300 ml 500 ml 500 ml Chest Tube Drainage Total 0 ml 0 ml # Voids 1 # Bowel Movements 1 0 3 3 Result Diagram: 11/30/16 0328 11/30/16 0328 Objective Remarks GENERAL: Patient is confused. He is hallucinating. Tachypneic. CARDIOVASCULAR: Rate around 110 and regular rhythm without murmurs, gallops, or rubs. RESPIRATORY: Some upper respiratory gurgling sounds. Markedly diminished breath sounds on the left. There is a chest tube in place on the left side. Right lung field mostly clear to auscultation. GASTROINTESTINAL: Abdomen soft, non-tender, non-distended. Normal active bowel sounds MUSCULOSKELETAL: Extremities without cyanosis, or edema. NEURO: Confused. Moves all ext x4 PSYCH: Anxious A/P Problem List: (1) Multiple rib fractures ICD Code: S22.49XA Status: Acute (2) Lung contusion ICD Code: S27.329A Status: Acute (3) Fall from ladder ICD Code: W11.XXXA Status: Acute (4) Traumatic pneumothorax ICD Code: S27.0XXA Status: Acute (5) Pelvic fracture ICD Code: S32.9XXA Status: Acute (6) HTN (hypertension) ICD Code: I10 Status: Acute (7) EtOH dependence ICD Code: F10.20 Status: Acute Assessment and Plan 58-year-old gentleman reportedly fell 20 feet off of a ladder onto his back without loss of consciousness. He may have been drinking. He was brought in as a trauma alert due to his age and the height of his fall. Patient arrived alert with mild confusion his [place] Coma Scale was 14 complaining of back pain and left chest pain. Patient had multiple left-sided rib fractures with hemopneumothorax. Chest tube inserted in the trauma bay with x-ray confirming position. Patient also had multiple pelvic fractures with sacral fracture nondisplaced acetabular fracture. Initially managed in critical care, improving clinically and was transferred to medical-surgical floor. Hospitalist service following for medical management. EtOH abuse, dependence - drinks 10 beers a day. Elevated liver enzymes. - Patient appeared to be in DTs. - Continue with CIWA protocol Pneumonia - CXR 10:36 AM 11/30/15 no evidence of pneumothorax status post placement of 10 [place] non-locking pigtail tube in the left upper lung field. There has been significant decrease in the size of the loculated pleural effusion status post chest tube placement. Scattered patchy infiltrates bilaterally consistent with atelectasis and/or pneumonia stable cardiomegaly. -Continue Levaquin IV. - Follow-up chest x-ray in few days. - Nebulizer treatments scheduled. - Monitor respiratory status. Macrocytic anemia - secondary to EtOH dependence - Thiamine, folate Hyponatremia - slightly improved from previous 131 --> 132 - Continue to monitor. Status post fall, multiple rib fractures, pubic rib fractures, pelvic fractures with sacral fracture nondisplaced acetabular fracture - Orthopedic following patient. Weightbearing status was ordered. Recommended toe-touch weightbearing on the left leg. He may weight bear as tolerated on the right leg for transfers. -Pain management Left upper lobe loculated effusion/Hemothorax - continue chest tube management per primary team. - 2 L nasal cannula Tobacco use -nicotine patch HTN -no known history of hypertension. - Continue lisinopril. Add clonidine as needed - On Vasotec when necessary. Continue to monitor BP trend DVT prop Lovenox GI famotidine Problem Qualifiers (1) Multiple rib fractures: Qualified Code: S22.42XA - Closed fracture of multiple ribs of left side, initial encounter (2) Lung contusion: Qualified Code: S27.321A - Contusion of left lung, initial encounter (3) Fall from ladder: Qualified Code: W11.XXXA - Fall from ladder, initial encounter (4) Traumatic pneumothorax: Qualified Code: S27.0XXA - Traumatic pneumothorax, initial encounter (5) Pelvic fracture: Qualified Code: S32.810A - Multiple closed fractures of pelvis with stable disruption of pelvic [place], initial encounter Simon Lomax MD Dec 01, 2016 11:44
[2016-12-01 12:48] LABS: BASOPHIL % 0.2 % (0.0-2.0); EOSINOPHIL % 0.1 % (0.0-4.0); HEMATOCRIT 26.5 % (39.0-51.0); LYMPH % 7.5 % (9.0-44.0); LYMPHOCYTE # 0.9 TH/MM3 (1.0-4.8); MEAN CELL VOLUME 103.8 FL (80.0-100.0); MEAN CORPUSCULAR HEMOGLOBIN 36.4 PG (27.0-34.0); MEAN CORPUSCULAR HGB CONC 35.1 % (32.0-36.0); MONO % 7.8 % (0.0-8.0); NEUT % 84.4 % (16.0-70.0); PLATELET COUNT 225 TH/MM3 (150-450); RED BLOOD COUNT 2.55 MIL/MM3 (4.50-5.90); RED CELL DISTRIBUTION WIDTH 12.1 % (11.6-17.2); WHITE BLOOD COUNT 11.8 TH/MM3 (4.0-11.0)
[2016-12-01 12:51] LABS: HEMO FLAGS AUTO DIFF
[2016-12-01 13:16] LABS: BICARBONATE 24.6 MEQ/L (21.0-32.0); MAGNESIUM 2.4 MG/DL (1.5-2.5); POTASSIUM 3.7 MEQ/L (3.5-5.1)
[2016-12-01 13:31] LABS: BANDS 15 % (0-6); CORRECTED NUCLEATED RBC 1 /100 WBC (0-0); EOSINOPHILS 1 % (0-4); NEUTROPHIL # MANUAL DIFF 10.4 TH/MM3 (1.8-7.7); POLYS (SEG NEUTROPHILS) 73 % (16-70); WBC DIFF SAMPLE 100
[2016-12-01 13:32] LABS: PLATELET ESTIMATE SMEAR NORMAL (NORMAL); PLATELET MORPHOLOGY NORMAL (NORMAL); SCAN/DIFF FINAL DIFF MANUAL
[2016-12-01] MEDS: SODIUM CHLOR 0.9% 1000 ML INJ 1,000 ML IV SCH ×2 (14:43→21:31)
[2016-12-01] MEDS ORDERED: FUROSEMIDE 40 MG/4 ML VIAL IV PUSH ONE (16:00)
[2016-12-01] MEDS: LEVOFLOXACIN 750 MG PREMIX INJ 150 ML IV SCH (16:02)
--- NOTE | 2016-12-01 16:17 | HHI.PR ---
Subjective Subjective Notes S/P CT placement by IR yesterday: 250mL initial drainage noted. Confused today, required restraints overnight after he pulled out IVs and his new CT. Objective Vitals/I&O Vital Signs Date Time Temp Pulse Resp B/P Pulse Ox O2 Delivery O2 Flow Rate FiO2 12/01/16 08:00 97.7 109 19 195/90 95 12/01/16 07:38 Nasal Cannula 4.00 Labs Laboratory Tests Test 12/01/16 12:34 White Blood Count 11.8 Red Blood Count 2.55 Hemoglobin 9.3 Hematocrit 26.5 Mean Corpuscular Volume 103.8 Mean Corpuscular Hemoglobin 36.4 Mean Corpuscular Hemoglobin 35.1 Concent Red Cell Distribution Width 12.1 Platelet Count 225 Mean Platelet Volume 7.9 Neutrophils (%) (Auto) 84.4 Lymphocytes (%) (Auto) 7.5 Monocytes (%) (Auto) 7.8 Eosinophils (%) (Auto) 0.1 Basophils (%) (Auto) 0.2 Neutrophils # (Auto) 10.0 Lymphocytes # (Auto) 0.9 Monocytes # (Auto) 0.9 Eosinophils # (Auto) 0.0 Basophils # (Auto) 0.0 CBC Comment AUTO DIFF Differential Total Cells 100 Counted Neutrophils % (Manual) 73 Band Neutrophils % 15 Lymphocytes % 6 Monocytes % 5 Eosinophils % 1 Neutrophils # (Manual) 10.4 Nucleated Red Blood Cells 1 Differential Comment FINAL DIFF MANUAL Platelet Estimate NORMAL Platelet Morphology Comment NORMAL Sodium Level 138 Potassium Level 3.7 Chloride Level 104 Carbon Dioxide Level 24.6 Anion Gap 9 Blood Urea Nitrogen 13 Creatinine 0.40 Estimat Glomerular Filtration 217 Rate Random Glucose 123 Calcium Level 8.6 Magnesium Level 2.4 Ammonia LESS THAN 10 Radiology Last Impressions Chest X-Ray 11/27/16 0600 Signed Impressions: Service Date/Time: Sunday, November 27, 2016 06:05 - CONCLUSION: 1. Left chest tube remains present and no pneumothorax is visualized. 2. There is a small left pleural effusion with associated volume loss and/or consolidation at the lung base. Neel Mahan MD Pelvis X-Ray 11/25/161950 Signed Impressions: Service Date/Time: November 19:44 - CONCLUSION: Bilateral pubic rami and left sacral fractures. Neel Moyer MD Head CT 11/25/161950 Signed Impressions: Service Date/Time: November 20:06 - CONCLUSION: Motion degraded study without convincing evidence of acute intracranial hemorrhage. Followup noncontrasted head CT suggested in 24 hours. Neel Moyer MD Chest CT 11/25/161950 Signed Impressions: Service Date/Time: November 20:10 - CONCLUSION: Multiple left rib fractures with moderate left pneumothorax, tiny left hemothorax and probable contusion of the left lower lobe. Neel Moyer MD Cervical Spine CT 11/25/161950 Signed Impressions: Service Date/Time: November 20:06 - CONCLUSION: 1. No fracture or subluxation of the cervical spine. 2. Degenerative changes with a chronic appearing disc osteophyte complex and uncovertebral/facet osteoarthritis causing severe spinal and bilateral foraminal stenosis at C6-C7. 3. Small, age-indeterminate posterior disc protrusion at C7/T1 causing mild spinal stenosis. Neel Moyer MD Abdomen/Pelvis CT 11/25/161950 Signed Impressions: Service Date/Time: November 20:10 - CONCLUSION: 1. No evidence of acute visceral or injury. 2. Fractures of the left body and ala of the sacrum with mildly displaced fracturing in the region of the left S2/S3 foramen. 3. Bilateral superior and inferior pubic rami fractures and a nondisplaced fracture of the left acetabulum. 4. Small presacral and left iliopsoas hematomas. I don't see active bleeding. Neel Moyer MD Thoracic Spine CT 11/25/16 0000 Signed Impressions: Service Date/Time: November 20:10 - CONCLUSION: Left T12 transverse process and facet fracture, minimally displaced. Multiple left posterior rib fractures and placed refer to the chest CT report. Thoracic vertebral bodies are intact. No subluxations. Neel Moyer MD Lumbar Spine CT 11/25/16 0000 Signed Impressions: Service Date/Time: November 20:10 - CONCLUSION: 1. Minimally to mildly displaced left transverse process fractures of L1-L4. 2. Multilevel degenerative changes as above. Large right paracentral disc fragment at L4/L5, probably nonacute. Neel Moyre MD Narrative Exam GENERAL: 61 year old disheveled male lying in bed in [facility]. SKIN: Warm and dry. HEAD: Normocephalic. EYES: PERRL. ENT: No nasal bleeding or discharge. Mucous membranes pink and moist. NECK: Trachea midline. No JVD. CARDIOVASCULAR: Regular rate and rhythm. RESPIRATORY: Labored breathing noted. Lungs clear to auscultation with crackles auscultated in the left lower lobe. LEFT lateral CT in place secured to pleura vac. GASTROINTESTINAL: Abdomen soft and distended. Non-tender to palpation. + BS. MUSCULOSKELETAL: Extremities without cyanosis, or edema. No obvious deformities. NEUROLOGICAL: Awake and alert. Normal speech. Oriented to self, upward gaze noted. A/P Problem List: (1) Pelvic fracture (2) Traumatic pneumothorax (3) Fall from ladder (4) Lung contusion (5) Multiple rib fractures Assessment and Plan INJURIES: Multiple LEFT rib fxs LEFT PTX Tiny LEFT hemoPTX (w/ CT LEFT lower lobe contusion (spinal stenosis C6-C7) (Disk protrusion C7-T1- spinal stenosis) LEFT S2-S3 foramen fx (mild displaced) BILAT superior and inferior pubic rami fx (non-op) LEFT sacral Fx (non-op) LEFT acetabulum fx (non-displaced) (non-op) Diet; Regular Pulm: IS, acapella, EZpap. Nebs. CT on waterseal. Pain; Roxicodone. Robaxin. Dilaudid IV. Ibuprofen. Neurontin Activity: OOB. PT and OT ordered. (WBAT RLE; TTWB LLE). Patient has been requiring maximum assistance from PT to sit at the side of the bed. GI: Pepcid HS Bowel: Roseanne-colace. MOM HS. Lactulose. LBM 12/01 DVT: SCD's. Lovenox Labs rechecked today and stable. We'll recheck in a.m. CXR stable. We'll recheck in a.m. Serial neuro checks. Notify MD or any neuro changes. Monitor vitals and respiratory status. Hold pain meds for sedation and notify MD. WA protocol, patient likely experiencing DTs causing current confused state. Plan of care discussed with patient and nurse at bedside. Case management consulted for discharge planning. Patient will need rehabilitation versus SNF. The exam, history, and the medical decision-making described in the above note were completed with the assistance of the mid-level provider. I reviewed and agree with the findings presented. I attest that I had a [id number] encounter with the patient on the same day, and personally performed and documented my assessment and findings in the medical record. Problem Qualifiers (1) Pelvic fracture: Qualified Code: S32.810A - Multiple closed fractures of pelvis with stable disruption of pelvic [place], initial encounter (2) Traumatic pneumothorax: Qualified Code: S27.0XXA - Traumatic pneumothorax, initial encounter (3) Fall from ladder: Qualified Code: W11.XXXA - Fall from ladder, initial encounter (4) Lung contusion: Qualified Code: S27.321A - Contusion of left lung, initial encounter (5) Multiple rib fractures: Qualified Code: S22.42XA - Closed fracture of multiple ribs of left side, initial encounter Ni Serrano Dec 01, 2016 16:17 Tsyhawn Hollins MD Dec 04, 2016 14:34
[2016-12-01 16:27] VITALS: O2SAT 93
[2016-12-01 16:38] LABS: BLOOD GAS BASE EXCESS -1.3 mmol/L (-2-2); BLOOD GAS CARBOXYHEMOGLOBIN 2.4 % (0-4); BLOOD GAS HCO3 23 mmol/L (22-26); BLOOD GAS METHEMOGLOBIN 1.1 % (0-2); BLOOD GAS O2 HGB SATURATION 92 % (90-100); BLOOD GAS OXYGEN CONTENT 11.6 Vol % (12.0-20.0); BLOOD GAS PCO2 38 mmHg (38-42); BLOOD GAS PO2 74 mmHg (61-120); BLOOD GAS TOTAL HGB 8.9 G/DL (12.0-16.0); CRITICAL VALUE NO; DRAW SITE RT RADIAL; LITER FLOW 4 L/M; NUMBER OF ARTERIAL PUNCTURES 1; OXYGEN DEVICE NASAL CANNULA; STAT YES; TEMP CORR TO 98.6; ULNAR PULSE PRESENT
--- NOTE | 2016-12-01 16:39 | RADRPT ---
EXAM DATE/TIME: 12/01/2016 16:15 [facility] COMPARISON: CHEST SINGLE AP, December 01, 2016, 10:37. INDICATIONS : Shortness of breath MEDICAL HISTORY : None. SURGICAL HISTORY : None. ENCOUNTER: Subsequent ACUITY: 4 - 6 days PAIN SCORE: Non-responsive. LOCATION: Bilateral chest FINDINGS: Scattered infiltrates are again noted bilaterally and are stable. A left-sided chest tube remains in good position. There is no pneumothorax. A small partially loculated pleural effusion is unchanged within the left upper lung field. The heart is enlarged. Hardware is noted within the cervical spine . CONCLUSION: No significant change compared to 12/01/2016. Drake Corona MD on December 01, 2016 at 16:33 Board Certified Radiologist. This report was verified electronically.
[2016-12-01] MEDS: cloNIDine HCL 0.1 MG TAB PO PRN (17:26)
[2016-12-01 20:00] VITALS: BP 166/74; PULSE 107; RESP 19; TEMP 97.8; O2SAT 95
[2016-12-01] MEDS: REMOVE OLD NICODERM (NICOTINE) PATCH TD SCH (21:30)
[2016-12-01] MEDS: MAGNESIUM HYDROXIDE SUSP 30 ML CUP PO SCH (21:31)
[2016-12-01] MEDS: FAMOTIDINE 20 MG TAB PO SCH (21:31)
[2016-12-02] VITALS: BP 146/71; PULSE 87; RESP 17; TEMP 97; O2SAT 97
[2016-12-02] MEDS: IBUPROFEN 800 MG TAB PO SCH ×5 (00:23→22:47)
[2016-12-02] MEDS: ACETAMINOPHEN 1000 MG/100 ML VIAL IV SCH ×3 (04:39→20:34)
[2016-12-02 05:12] LABS: BICARBONATE 23.9 MEQ/L (21.0-32.0); POTASSIUM 3.1 MEQ/L (3.5-5.1)
[2016-12-02 05:18] LABS: HEMATOCRIT 23.6 % (39.0-51.0); MEAN CELL VOLUME 103.2 FL (80.0-100.0); MEAN CORPUSCULAR HEMOGLOBIN 36.4 PG (27.0-34.0); MEAN CORPUSCULAR HGB CONC 35.3 % (32.0-36.0); PLATELET COUNT 207 TH/MM3 (150-450); RED BLOOD COUNT 2.29 MIL/MM3 (4.50-5.90); RED CELL DISTRIBUTION WIDTH 12.5 % (11.6-17.2); REVIEW FLAG FINAL
--- NOTE | 2016-12-02 07:05 | PD.ORT.PN ---
Subjective Subjective Remarks s/p left sacral fx and bilateral rami fxs doing well. has not been out of bed. reports pain in pelvis but manageable Objective Vitals Vital Signs Date Time Temp Pulse Resp B/P Pulse Ox O2 Delivery O2 Flow Rate FiO2 12/02/16 05:09 16 12/02/16 05:09 16 12/02/16 04:49 16 12/02/16 00:00 97.0 87 17 146/71 97 12/01/16 20:10 Nasal Cannula 4.00 12/01/16 20:00 97.8 107 19 166/74 95 12/01/16 16:27 93 Nasal Cannula 4.00 12/01/16 08:00 97.7 109 19 195/90 95 12/01/16 07:38 94 Nasal Cannula 4.00 I/O 12/01/16 12/01/16 12/01/16 12/02/16 12/02/16 12/02/16 07:00 15:00 23:00 07:00 15:00 23:00 Intake Total 971 ml 60 ml 360 ml 942 ml Output Total 500 ml 0 ml Balance 471 ml 60 ml 360 ml 942 ml Intake Oral 150 ml 60 ml 360 ml 240 ml IV Total 821 ml 702 ml Output Urine Total 500 ml Chest Tube Drainage Total 0 ml 0 ml # Voids 1 3 2 3 # Bowel Movements 3 3 4 Result Diagram: 12/02/16 0418 12/02/16 0418 Imaging Last 24 hours Impressions Chest X-Ray 11/26/16 0000 Signed Impressions: Service Date/Time: Saturday, November 26, 2016 03:32 - CONCLUSION: 1. Left chest tube remains present and there is likely a tiny left apical pneumothorax present. There is stable air along the left chest wall. 2. Stable left lung base airspace opacity representing either atelectasis or consolidation. Neel Mahan MD Pelvis X-Ray 11/25/161950 Signed Impressions: Service Date/Time: November 19:44 - CONCLUSION: Bilateral pubic rami and left sacral fractures. Neel Moyer MD Head CT 11/25/161950 Signed Impressions: Service Date/Time: November 20:06 - CONCLUSION: Motion degraded study without convincing evidence of acute intracranial hemorrhage. Followup noncontrasted head CT suggested in 24 hours. Neel Moyer MD Chest X-Ray 11/25/161950 Signed Impressions: Service Date/Time: November 19:44 - CONCLUSION: Multiple posterior left rib fractures with a left base parenchymal contusion. Neel Moyer MD Chest CT 11/25/161950 Signed Impressions: Service Date/Time: November 20:10 - CONCLUSION: Multiple left rib fractures with moderate left pneumothorax, tiny left hemothorax and probable contusion of the left lower lobe. Neel Moyer MD Cervical Spine CT 11/25/161950 Signed Impressions: Service Date/Time: November 20:06 - CONCLUSION: 1. No fracture or subluxation of the cervical spine. 2. Degenerative changes with a chronic appearing disc osteophyte complex and uncovertebral/facet osteoarthritis causing severe spinal and bilateral foraminal stenosis at C6-C7. 3. Small, age-indeterminate posterior disc protrusion at C7/T1 causing mild spinal stenosis. Neel Moyre MD Abdomen/Pelvis CT 11/25/161950 Signed Impressions: Service Date/Time: November 20:10 - CONCLUSION: 1. No evidence of acute visceral or injury. 2. Fractures of the left body and ala of the sacrum with mildly displaced fracturing in the region of the left S2/S3 foramen. 3. Bilateral superior and inferior pubic rami fractures and a nondisplaced fracture of the left acetabulum. 4. Small presacral and left iliopsoas hematomas. I don't see active bleeding. Neel Moyer MD Objective Remarks Pelvis: slight discomfort with movement of legs. NVi distally Assessment & Plan Assessment and Plan 1) Left Sacral Fxs 2) Bilateral sup/inf rami fxs -nonop -WBAT on RLE -TTWB LLE ortho cleared for DC when medically cleared PT ordered Jam Calvillo Dec 02, 2016 07:05
[2016-12-02] MEDS: RESP: ALBUTEROL 2.5 MG/IPRATROPIUM 0.5 MG NEB (SCH) NEB ×3 (07:44→20:42)
[2016-12-02 07:46] VITALS: O2SAT 95
[2016-12-02 08:00] VITALS: BP_SYST 173; BP_SYST 174; BP_DIAS 132; BP_DIAS 90; PULSE 103; RESP 18; TEMP 98.6; O2SAT 95
[2016-12-02] MEDS: LISINOPRIL 10 MG TAB PO SCH (08:11)
[2016-12-02] MEDS: GABAPENTIN 300 MG CAP PO SCH ×3 (08:11→15:57)
[2016-12-02] MEDS: NICOTINE 14 MG/24 HR PATCH TD SCH (08:11)
[2016-12-02] MEDS: ENOXAPARIN SODIUM 30 MG/0.3 ML SYRINGE SQ SCH ×2 (08:15→20:35)
[2016-12-02] MEDS: SODIUM CHLOR 0.9% 1000 ML INJ 1,000 ML IV SCH (08:18)
[2016-12-02] MEDS: DOCUSATE SODIUM 50 MG/SENNA 8.6 MG TAB PO SCH ×2 (08:23→20:35)
[2016-12-02] MEDS ORDERED: D5-1/2 NS + KCL 20 MEQ INJ 1,000 ML IV SCH (09:00)
[2016-12-02] MEDS: POTASSIUM CHLOR 20 MEQ PREMIX 100 ML IV SCH ×2 (09:50→10:06)
[2016-12-02] MEDS ORDERED: HYDR-3583 PO (09:53)
[2016-12-02] MEDS: HYDROmorphone HCL PF 1 MG/ML VIAL IVP PRN ×2 (10:03→20:33)
--- NOTE | 2016-12-02 11:24 | HHI.PR ---
Subjective Subjective Notes A & O today. Complains of left hip pain Objective Vitals/I&O Vital Signs Date Time Temp Pulse Resp B/P Pulse Ox O2 Delivery O2 Flow Rate FiO2 12/02/16 08:20 Nasal Cannula 2.00 Humidified 12/02/16 08:00 98.6 103 18 174/132 95 173/90 Labs Laboratory Tests Test 12/01/16 12/01/16 12/02/16 12:34 16:20 04:18 White Blood Count 11.8 15.0 Red Blood Count 2.55 2.29 Hemoglobin 9.3 8.3 Hematocrit 26.5 23.6 Mean Corpuscular Volume 103.8 103.2 Mean Corpuscular Hemoglobin 36.4 36.4 Mean Corpuscular Hemoglobin 35.1 35.3 Concent Red Cell Distribution Width 12.1 12.5 Platelet Count 225 207 Mean Platelet Volume 7.9 8.1 Neutrophils (%) (Auto) 84.4 Lymphocytes (%) (Auto) 7.5 Monocytes (%) (Auto) 7.8 Eosinophils (%) (Auto) 0.1 Basophils (%) (Auto) 0.2 Neutrophils # (Auto) 10.0 Lymphocytes # (Auto) 0.9 Monocytes # (Auto) 0.9 Eosinophils # (Auto) 0.0 Basophils # (Auto) 0.0 CBC Comment AUTO DIFF Differential Total Cells 100 Counted Neutrophils % (Manual) 73 Band Neutrophils % 15 Lymphocytes % 6 Monocytes % 5 Eosinophils % 1 Neutrophils # (Manual) 10.4 Nucleated Red Blood Cells 1 Differential Comment FINAL DIFF MANUAL Platelet Estimate NORMAL Platelet Morphology Comment NORMAL Sodium Level 138 142 Potassium Level 3.7 3.1 Chloride Level 104 106 Carbon Dioxide Level 24.6 23.9 Anion Gap 9 12 Blood Urea Nitrogen 13 15 Creatinine 0.40 0.28 Estimat Glomerular Filtration 217 328 Rate Random Glucose 123 107 Calcium Level 8.6 8.0 Magnesium Level 2.4 Ammonia LESS THAN 10 Blood Gas Puncture Site RT RADIAL Blood Gas Patient Temperature 98.6 Blood Gas HCO3 23 Blood Gas Base Excess -1.3 Blood Gas Oxygen Saturation 92 Arterial Blood pH 7.40 Arterial Blood Partial 38 Pressure CO2 Arterial Blood Partial 74 Pressure O2 Arterial Blood Oxygen Content 11.6 Arterial Blood 2.4 Carboxyhemoglobin Arterial Blood Methemoglobin 1.1 Blood Gas Hemoglobin 8.9 Oxygen Delivery Device NASAL CANNULA Blood Gas Liter Flow 4 Radiology Last Impressions Chest X-Ray 11/27/16 0600 Signed Impressions: Service Date/Time: Sunday, November 27, 2016 06:05 - CONCLUSION: 1. Left chest tube remains present and no pneumothorax is visualized. 2. There is a small left pleural effusion with associated volume loss and/or consolidation at the lung base. Neel Mahan MD Pelvis X-Ray 11/25/161950 Signed Impressions: Service Date/Time: November 19:44 - CONCLUSION: Bilateral pubic rami and left sacral fractures. Neel Moyer MD Head CT 11/25/161950 Signed Impressions: Service Date/Time: November 20:06 - CONCLUSION: Motion degraded study without convincing evidence of acute intracranial hemorrhage. Followup noncontrasted head CT suggested in 24 hours. Neel Moyer MD Chest CT 11/25/161950 Signed Impressions: Service Date/Time: November 20:10 - CONCLUSION: Multiple left rib fractures with moderate left pneumothorax, tiny left hemothorax and probable contusion of the left lower lobe. Neel Moyer MD Cervical Spine CT 11/25/161950 Signed Impressions: Service Date/Time: November 20:06 - CONCLUSION: 1. No fracture or subluxation of the cervical spine. 2. Degenerative changes with a chronic appearing disc osteophyte complex and uncovertebral/facet osteoarthritis causing severe spinal and bilateral foraminal stenosis at C6-C7. 3. Small, age-indeterminate posterior disc protrusion at C7/T1 causing mild spinal stenosis. Neel Moyer MD Abdomen/Pelvis CT 11/25/161950 Signed Impressions: Service Date/Time: November 20:10 - CONCLUSION: 1. No evidence of acute visceral or injury. 2. Fractures of the left body and ala of the sacrum with mildly displaced fracturing in the region of the left S2/S3 foramen. 3. Bilateral superior and inferior pubic rami fractures and a nondisplaced fracture of the left acetabulum. 4. Small presacral and left iliopsoas hematomas. I don't see active bleeding. Neel Moyer MD Thoracic Spine CT 11/25/16 0000 Signed Impressions: Service Date/Time: November 20:10 - CONCLUSION: Left T12 transverse process and facet fracture, minimally displaced. Multiple left posterior rib fractures and placed refer to the chest CT report. Thoracic vertebral bodies are intact. No subluxations. Neel Moyer MD Lumbar Spine CT 11/25/16 0000 Signed Impressions: Service Date/Time: November 20:10 - CONCLUSION: 1. Minimally to mildly displaced left transverse process fractures of L1-L4. 2. Multilevel degenerative changes as above. Large right paracentral disc fragment at L4/L5, probably nonacute. Neel Moyer MD Narrative Exam GENERAL: 61 year old disheveled male lying in bed. SKIN: Warm and dry. NECK: Trachea midline. No JVD. CARDIOVASCULAR: Regular rate and rhythm. RESPIRATORY: Labored breathing noted. Lungs clear to auscultation. LEFT lateral CT in place secured to pleura vac. No air leak noted. GASTROINTESTINAL: Abdomen soft and distended. Non-tender to palpation. + BS. MUSCULOSKELETAL: Extremities without cyanosis, or edema. No obvious deformities. NEUROLOGICAL: Awake and alert. Normal speech. A/P Problem List: (1) Pelvic fracture (2) Traumatic pneumothorax (3) Fall from ladder (4) Lung contusion (5) Multiple rib fractures Assessment and Plan INJURIES: Multiple LEFT rib fxs LEFT PTX Tiny LEFT hemoPTX (w/ CT LEFT lower lobe contusion (spinal stenosis C6-C7) (Disk protrusion C7-T1- spinal stenosis) LEFT S2-S3 foramen fx (mild displaced) BILAT superior and inferior pubic rami fx (non-op) LEFT sacral Fx (non-op) LEFT acetabulum fx (non-displaced) (non-op) Diet; Regular Pulm: IS, acapella, EZpap. Nebs. CT in place secured to pleura-vac. Pain; Roxicodone. Robaxin. Dilaudid IV. Ibuprofen. Neurontin. Painful with mobility. Activity: OOB. PT and OT evaluating. (WBAT RLE; TTWB LLE). Patient has been requiring maximum assistance from PT to sit at the side of the bed. GI: Pepcid HS Bowel: Roseanne-colace. MOM HS. Lactulose. LBM 12/01 DVT: SCD's. Lovenox CXR and labs in AM. CIWA protocol, patient likely experiencing DTs causing current confused state. Plan of care discussed with patient and nurse at bedside. Case management consulted for discharge planning. Patient will need rehabilitation versus SNF. Attending Statement pt seen at bedside awake answering questions left hip pain O2 saturations normal Attestation The exam, history, and the medical decision-making described in the above note were completed with the assistance of the mid-level provider. I reviewed and agree with the findings presented. I attest that I had a [id number] encounter with the patient on the same day, and personally performed and documented my assessment and findings in the medical record. Problem Qualifiers (1) Pelvic fracture: Qualified Code: S32.810A - Multiple closed fractures of pelvis with stable disruption of pelvic [place], initial encounter (2) Traumatic pneumothorax: Qualified Code: S27.0XXA - Traumatic pneumothorax, initial encounter (3) Fall from ladder: Qualified Code: W11.XXXA - Fall from ladder, initial encounter (4) Lung contusion: Qualified Code: S27.321A - Contusion of left lung, initial encounter (5) Multiple rib fractures: Qualified Code: S22.42XA - Closed fracture of multiple ribs of left side, initial encounter Ni Serrano Dec 02, 2016 11:24 Manny Betancourt MD Dec 14, 2016 06:44
[2016-12-02 12:00] VITALS: BP 158/90; PULSE 99; RESP 19; TEMP 98.6; O2SAT 95
--- NOTE | 2016-12-02 14:04 | HHI.PR ---
Subjective Remarks Patient is doing much better today. He is now alert and oriented X4. He complains of left hip and lower back pain. K is low this morning. Objective Vitals Vital Signs Date Time Temp Pulse Resp B/P Pulse Ox O2 Delivery O2 Flow Rate FiO2 12/02/16 12:00 98.6 99 19 158/90 95 12/02/16 08:20 Nasal Cannula 2.00 Humidified 12/02/16 08:00 98.6 103 18 174/132 95 173/90 12/02/16 07:46 95 Nasal Cannula 2.00 12/02/16 05:09 16 12/02/16 05:09 16 12/02/16 04:49 16 12/02/16 00:00 97.0 87 17 146/71 97 12/01/16 20:10 Nasal Cannula 4.00 12/01/16 20:00 97.8 107 19 166/74 95 12/01/16 16:27 93 Nasal Cannula 4.00 I/O 12/01/16 12/01/16 12/01/16 12/02/16 12/02/16 12/02/16 07:00 15:00 23:00 07:00 15:00 23:00 Intake Total 971 ml 60 ml 360 ml 942 ml 237 ml Output Total 500 ml 0 ml Balance 471 ml 60 ml 360 ml 942 ml 237 ml Intake Oral 150 ml 60 ml 360 ml 240 ml IV Total 821 ml 702 ml 237 ml Output Urine Total 500 ml Chest Tube Drainage Total 0 ml 0 ml # Voids 1 3 2 3 # Bowel Movements 3 3 4 Result Diagram: 12/02/16 0418 12/02/16 0418 Objective Remarks GENERAL: Patient is in no acute distress. CARDIOVASCULAR: Normal rate and regular rhythm without murmurs, gallops, or rubs. RESPIRATORY: Diminished breath sounds on the left. There is a chest tube in place on the left side. Right lung field mostly clear to auscultation. GASTROINTESTINAL: Abdomen soft, non-tender, non-distended. Normal active bowel sounds MUSCULOSKELETAL: Extremities without cyanosis, or edema. NEURO: Awake and alert. Moves all ext x4. Generalized weakness. PSYCH: Calm A/P Problem List: (1) Multiple rib fractures ICD Code: S22.49XA Status: Acute (2) Lung contusion ICD Code: S27.329A Status: Acute (3) Fall from ladder ICD Code: W11.XXXA Status: Acute (4) Traumatic pneumothorax ICD Code: S27.0XXA Status: Acute (5) Pelvic fracture ICD Code: S32.9XXA Status: Acute (6) HTN (hypertension) ICD Code: I10 Status: Acute (7) EtOH dependence ICD Code: F10.20 Status: Acute Assessment and Plan 58-year-old gentleman reportedly fell 20 feet off of a ladder onto his back without loss of consciousness. He may have been drinking. He was brought in as a trauma alert due to his age and the height of his fall. Patient arrived alert with mild confusion his [place] Coma Scale was 14 complaining of back pain and left chest pain. Patient had multiple left-sided rib fractures with hemopneumothorax. Chest tube inserted in the trauma bay with x-ray confirming position. Patient also had multiple pelvic fractures with sacral fracture nondisplaced acetabular fracture. Initially managed in critical care, improving clinically and was transferred to medical-surgical floor. Hospitalist service following for medical management. EtOH abuse, dependence - drinks 10 beers a day. Elevated liver enzymes. - Patient went through DTs, He is now improving. - Continue with CIWA protocol Pneumonia - CXR 10:36 AM 11/30/15 no evidence of pneumothorax status post placement of 10 [place] non-locking pigtail tube in the left upper lung field. There has been significant decrease in the size of the loculated pleural effusion status post chest tube placement. Scattered patchy infiltrates bilaterally consistent with atelectasis and/or pneumonia stable cardiomegaly. - Continue Levaquin IV. - Nebulizer treatments scheduled. - Monitor respiratory status. - Repeat chest X-ray in AM. Macrocytic anemia - secondary to EtOH dependence - Thiamine, folate Hyponatremia - Resolved - Continue to monitor. Status post fall, multiple rib fractures, pubic rib fractures, pelvic fractures with sacral fracture nondisplaced acetabular fracture - Orthopedic following patient. Weightbearing status was ordered. Recommended toe-touch weightbearing on the left leg. He may weight bear as tolerated on the right leg for transfers. - Pain management Left upper lobe loculated effusion/Hemothorax - continue chest tube management per primary team. - 2 L nasal cannula Tobacco use -nicotine patch HTN -no known history of hypertension. - Continue lisinopril. Add clonidine as needed - On Vasotec when necessary. Continue to monitor BP trend DVT prop Lovenox GI famotidine Discharge Planning Per primary team. ?[place] Problem Qualifiers (1) Multiple rib fractures: Qualified Code: S22.42XA - Closed fracture of multiple ribs of left side, initial encounter (2) Lung contusion: Qualified Code: S27.321A - Contusion of left lung, initial encounter (3) Fall from ladder: Qualified Code: W11.XXXA - Fall from ladder, initial encounter (4) Traumatic pneumothorax: Qualified Code: S27.0XXA - Traumatic pneumothorax, initial encounter (5) Pelvic fracture: Qualified Code: S32.810A - Multiple closed fractures of pelvis with stable disruption of pelvic [place], initial encounter Simon Lomax MD Dec 02, 2016 14:03
[2016-12-02] MEDS: LEVOFLOXACIN 750 MG PREMIX INJ 150 ML IV SCH (15:58)
[2016-12-02 20:00] VITALS: BP 185/80; PULSE 109; RESP 19; TEMP 97; O2SAT 95
[2016-12-02] MEDS: FAMOTIDINE 20 MG TAB PO SCH (20:34)
[2016-12-02] MEDS: MAGNESIUM HYDROXIDE SUSP 30 ML CUP PO SCH (20:35)
[2016-12-02] MEDS: REMOVE OLD NICODERM (NICOTINE) PATCH TD SCH (20:36)
[2016-12-02 20:45] VITALS: O2SAT 94
[2016-12-03] VITALS (7 sets, daily range): BP systolic 158–189; BP diastolic 73–83; PULSE 87–123; RESP 18–24; TEMP 96.8–101.3; O2SAT 95–98
[2016-12-03] MEDS: IBUPROFEN 800 MG TAB PO SCH (05:12)
[2016-12-03] MEDS: ACETAMINOPHEN 1000 MG/100 ML VIAL IV SCH ×3 (05:12→20:43)
[2016-12-03 05:24] LABS: HEMATOCRIT 23.7 % (39.0-51.0); MEAN CORPUSCULAR HGB CONC 34.7 % (32.0-36.0); PLATELET COUNT 219 TH/MM3 (150-450); RED BLOOD COUNT 2.28 MIL/MM3 (4.50-5.90); RED CELL DISTRIBUTION WIDTH 12.8 % (11.6-17.2); REVIEW FLAG FINAL
[2016-12-03 05:48] LABS: BICARBONATE 25.9 MEQ/L (21.0-32.0); POTASSIUM 3.5 MEQ/L (3.5-5.1)
[2016-12-03] MEDS: NICOTINE 14 MG/24 HR PATCH TD SCH (07:26)
[2016-12-03] MEDS: GABAPENTIN 300 MG CAP PO SCH ×3 (07:26→15:59)
[2016-12-03] MEDS: DOCUSATE SODIUM 50 MG/SENNA 8.6 MG TAB PO SCH ×2 (07:26→20:34)
[2016-12-03] MEDS: LISINOPRIL 10 MG TAB PO SCH (07:27)
--- NOTE | 2016-12-03 07:29 | RADRPT ---
EXAM DATE/TIME: 12/03/2016 06:34 [facility] COMPARISON: CHEST SINGLE AP, December 01, 2016, 16:15. INDICATIONS : Short of breath, evaluate effusion MEDICAL HISTORY : pneumothorax SURGICAL HISTORY : chest tube, cervical fusion ENCOUNTER: Subsequent ACUITY: 1 week PAIN SCORE: 7/10 LOCATION: Bilateral chest FINDINGS: Left chest tube remains in place with scattered bilateral pulmonary infiltrates and area of consolida tion unchanged with no evidence of pneumothorax. Pleural thickening loculated effusion in the left up per lung field is stable. CONCLUSION: Stable chest Jacek Lopez MD on December 03, 2016 at 7:26 Board Certified Radiologist. This report was verified electronically.
[2016-12-03] MEDS: ENOXAPARIN SODIUM 30 MG/0.3 ML SYRINGE SQ SCH ×2 (07:31→20:43)
[2016-12-03] MEDS: RESP: ALBUTEROL 2.5 MG/IPRATROPIUM 0.5 MG NEB (SCH) NEB ×3 (07:50→19:06)
--- NOTE | 2016-12-03 07:53 | PD.ORT.PN ---
Subjective Subjective Remarks Having difficulty with pain control. Chest tube in place. Painful for transfers Objective Vitals Vital Signs Date Time Temp Pulse Resp B/P Pulse Ox O2 Delivery O2 Flow Rate FiO2 12/03/16 07:33 Nasal Cannula 2.00 Humidified 12/03/16 06:12 16 12/03/16 05:40 16 12/03/16 00:00 96.8 87 19 158/82 96 12/02/16 23:47 16 12/02/16 21:03 16 12/02/16 20:45 94 Nasal Cannula 2.00 12/02/16 20:00 97.0 109 19 185/80 95 12/02/16 12:00 98.6 99 19 158/90 95 12/02/16 08:20 Nasal Cannula 2.00 Humidified 12/02/16 08:00 98.6 103 18 174/132 95 173/90 I/O 12/02/16 12/02/16 12/02/16 12/03/16 12/03/16 12/03/16 07:00 15:00 23:00 07:00 15:00 23:00 Intake Total 942 ml 357 ml 240 ml 730 ml Output Total 800 ml 250 ml 300 ml Balance 942 ml -443 ml -10 ml 430 ml Intake Oral 240 ml 120 ml 240 ml 480 ml IV Total 702 ml 237 ml 250 ml Output Urine Total 800 ml 250 ml 300 ml # Voids 3 # Bowel Movements 0 Result Diagram: 12/03/16 0454 12/03/16 0454 Imaging Last 24 hours Impressions Chest X-Ray 11/26/16 0000 Signed Impressions: Service Date/Time: Saturday, November 26, 2016 03:32 - CONCLUSION: 1. Left chest tube remains present and there is likely a tiny left apical pneumothorax present. There is stable air along the left chest wall. 2. Stable left lung base airspace opacity representing either atelectasis or consolidation. Neel Mahan MD Pelvis X-Ray 11/25/161950 Signed Impressions: Service Date/Time: November 19:44 - CONCLUSION: Bilateral pubic rami and left sacral fractures. Neel Moyer MD Head CT 11/25/161950 Signed Impressions: Service Date/Time: November 20:06 - CONCLUSION: Motion degraded study without convincing evidence of acute intracranial hemorrhage. Followup noncontrasted head CT suggested in 24 hours. Neel Moyer MD Chest X-Ray 11/25/161950 Signed Impressions: Service Date/Time: November 19:44 - CONCLUSION: Multiple posterior left rib fractures with a left base parenchymal contusion. Neel Moyer MD Chest CT 11/25/161950 Signed Impressions: Service Date/Time: November 20:10 - CONCLUSION: Multiple left rib fractures with moderate left pneumothorax, tiny left hemothorax and probable contusion of the left lower lobe. Neel Moyer MD Cervical Spine CT 11/25/161950 Signed Impressions: Service Date/Time: November 20:06 - CONCLUSION: 1. No fracture or subluxation of the cervical spine. 2. Degenerative changes with a chronic appearing disc osteophyte complex and uncovertebral/facet osteoarthritis causing severe spinal and bilateral foraminal stenosis at C6-C7. 3. Small, age-indeterminate posterior disc protrusion at C7/T1 causing mild spinal stenosis. Neel Moyer MD Abdomen/Pelvis CT 11/25/161950 Signed Impressions: Service Date/Time: November 20:10 - CONCLUSION: 1. No evidence of acute visceral or injury. 2. Fractures of the left body and ala of the sacrum with mildly displaced fracturing in the region of the left S2/S3 foramen. 3. Bilateral superior and inferior pubic rami fractures and a nondisplaced fracture of the left acetabulum. 4. Small presacral and left iliopsoas hematomas. I don't see active bleeding. Neel Moyer MD Objective Remarks Pelvis: slight discomfort with movement of legs. NVi distally Assessment & Plan Assessment and Plan 1) Left Sacral Fxs 2) Bilateral sup/inf rami fxs -nonop -WBAT on RLE -TTWB LLE pain control ortho cleared for DC when medically cleared Follow-up with Dr. Scott or PA in 2 weeks WADE MEMBRENO PA-C Dec 03, 2016 07:53
--- NOTE | 2016-12-03 11:09 | HHI.PR ---
Subjective Remarks Patient complaints of persistent left hip and lower back pain. He reports that chronically he takes hydrocodone, extended release morphine, and Robaxin at home. Otherwise he has no other complaints. Objective Vitals Vital Signs Date Time Temp Pulse Resp B/P Pulse Ox O2 Delivery O2 Flow Rate FiO2 12/03/16 08:00 97.8 98 18 181/81 98 12/03/16 07:50 96 Nasal Cannula 2.00 12/03/16 07:33 Nasal Cannula 2.00 Humidified 12/03/16 06:12 16 12/03/16 05:40 16 12/03/16 00:00 96.8 87 19 158/82 96 12/02/16 23:47 16 12/02/16 21:03 16 12/02/16 20:45 94 Nasal Cannula 2.00 12/02/16 20:00 97.0 109 19 185/80 95 12/02/16 12:00 98.6 99 19 158/90 95 I/O 12/02/16 12/02/16 12/02/16 12/03/16 12/03/16 12/03/16 07:00 15:00 23:00 07:00 15:00 23:00 Intake Total 942 ml 357 ml 240 ml 730 ml Output Total 800 ml 250 ml 300 ml Balance 942 ml -443 ml -10 ml 430 ml Intake Oral 240 ml 120 ml 240 ml 480 ml IV Total 702 ml 237 ml 250 ml Output Urine Total 800 ml 250 ml 300 ml # Voids 3 # Bowel Movements 0 Result Diagram: 12/03/16 0454 12/03/16 0454 Imaging Last Impressions Chest X-Ray 12/03/16 0600 Signed Impressions: Service Date/Time: Saturday, December 03, 2016 06:34 - CONCLUSION: Stable chest Jacek Lopez MD Pelvis X-Ray 11/30/16 0000 Signed Impressions: Service Date/Time: Wednesday, November 30, 2016 10:32 - CONCLUSION: 1. Bilateral pubic rami fractures. 2. Apparent nondisplaced fracture through the left sacrum. Jovan Chu MD Chest Tube Insertion 11/30/16 0000 Signed Impressions: Service Date/Time: Wednesday, November 30, 2016 09:48 - CONCLUSION: Uncomplicated chest tube placement as above. Drake Corona MD Chest CT 11/28/16 0000 Signed Impressions: Service Date/Time: Monday, November 28, 2016 13:46 - CONCLUSION: 1. Abnormality in the left upper hemithorax corresponds with loculated effusion. 2. Left- sided chest tube remains in the left major fissure. 3. Tiny pneumothorax on the right. 4. Scattered parenchymal densities throughout the lungs including left basilar consolidation. Melecio Rodriguez MD Head CT 11/25/161950 Signed Impressions: Service Date/Time: November 20:06 - CONCLUSION: Motion degraded study without convincing evidence of acute intracranial hemorrhage. Followup noncontrasted head CT suggested in 24 hours. Neel Moyer MD Cervical Spine CT 11/25/161950 Signed Impressions: Service Date/Time: November 20:06 - CONCLUSION: 1. No fracture or subluxation of the cervical spine. 2. Degenerative changes with a chronic appearing disc osteophyte complex and uncovertebral/facet osteoarthritis causing severe spinal and bilateral foraminal stenosis at C6-C7. 3. Small, age-indeterminate posterior disc protrusion at C7/T1 causing mild spinal stenosis. Neel Moyer MD Abdomen/Pelvis CT 11/25/161950 Signed Impressions: Service Date/Time: November 20:10 - CONCLUSION: 1. No evidence of acute visceral or injury. 2. Fractures of the left body and ala of the sacrum with mildly displaced fracturing in the region of the left S2/S3 foramen. 3. Bilateral superior and inferior pubic rami fractures and a nondisplaced fracture of the left acetabulum. 4. Small presacral and left iliopsoas hematomas. I don't see active bleeding. Neel Moyer MD Thoracic Spine CT 11/25/16 0000 Signed Impressions: Service Date/Time: November 20:10 - CONCLUSION: Left T12 transverse process and facet fracture, minimally displaced. Multiple left posterior rib fractures and placed refer to the chest CT report. Thoracic vertebral bodies are intact. No subluxations. Neel Moyer MD Lumbar Spine CT 11/25/16 0000 Signed Impressions: Service Date/Time: November 20:10 - CONCLUSION: 1. Minimally to mildly displaced left transverse process fractures of L1-L4. 2. Multilevel degenerative changes as above. Large right paracentral disc fragment at L4/L5, probably nonacute. Neel Moyer MD Objective Remarks GENERAL: Patient is in no acute distress. CARDIOVASCULAR: Normal rate and regular rhythm without murmurs, gallops, or rubs. RESPIRATORY: Diminished breath sounds on the left. There is a chest tube in place on the left side. Right lung field mostly clear to auscultation. GASTROINTESTINAL: Abdomen soft, non-tender, non-distended. Normal active bowel sounds MUSCULOSKELETAL: Extremities without cyanosis, or edema. NEURO: Awake and alert. Moves all ext x4. Generalized weakness. PSYCH: Calm A/P Problem List: (1) Multiple rib fractures ICD Code: S22.49XA Status: Acute (2) Lung contusion ICD Code: S27.329A Status: Acute (3) Fall from ladder ICD Code: W11.XXXA Status: Acute (4) Traumatic pneumothorax ICD Code: S27.0XXA Status: Acute (5) Pelvic fracture ICD Code: S32.9XXA Status: Acute (6) HTN (hypertension) ICD Code: I10 Status: Acute (7) EtOH dependence ICD Code: F10.20 Status: Acute Assessment and Plan 58-year-old gentleman reportedly fell 20 feet off of a ladder onto his back without loss of consciousness. He may have been drinking. He was brought in as a trauma alert due to his age and the height of his fall. Patient arrived alert with mild confusion his [place] Coma Scale was 14 complaining of back pain and left chest pain. Patient had multiple left-sided rib fractures with hemopneumothorax. Chest tube inserted in the trauma bay with x-ray confirming position. Patient also had multiple pelvic fractures with sacral fracture nondisplaced acetabular fracture. Initially managed in critical care, improving clinically and was transferred to medical-surgical floor. Hospitalist service following for medical management. EtOH abuse, dependence - drinks 10 beers a day. Elevated liver enzymes. - Patient went through DTs, He is now improving. - Continue with CIWA protocol Pneumonia - CXR 10:36 AM 11/30/15 no evidence of pneumothorax status post placement of 10 Hebrew non-locking pigtail tube in the left upper lung field. There has been significant decrease in the size of the loculated pleural effusion status post chest tube placement. Scattered patchy infiltrates bilaterally consistent with atelectasis and/or pneumonia stable cardiomegaly. - Continue Levaquin, change to oral to complete the course - Nebulizer treatments scheduled. - Monitor respiratory status. - Repeat chest X-ray in AM. Macrocytic anemia - secondary to EtOH dependence - Thiamine, folate Hyponatremia - Resolved - Continue to monitor. Status post fall, multiple rib fractures, pubic rib fractures, pelvic fractures with sacral fracture nondisplaced acetabular fracture - Orthopedic following patient. Weightbearing status was ordered. Recommended toe-touch weightbearing on the left leg. He may weight bear as tolerated on the right leg for transfers. - Pain management. Patient with chronic pain even prior to this hospitalization. Will add Morphine ER. Left upper lobe loculated effusion/Hemothorax - continue chest tube management per primary team. - 2 L nasal cannula Tobacco use -nicotine patch HTN -no known history of hypertension. - Continue lisinopril. Add clonidine as needed - On Vasotec when necessary. Continue to monitor BP trend DVT prop Lovenox GI famotidine Discharge Planning Per primary team. ?[place] Problem Qualifiers (1) Multiple rib fractures: Qualified Code: S22.42XA - Closed fracture of multiple ribs of left side, initial encounter (2) Lung contusion: Qualified Code: S27.321A - Contusion of left lung, initial encounter (3) Fall from ladder: Qualified Code: W11.XXXA - Fall from ladder, initial encounter (4) Traumatic pneumothorax: Qualified Code: S27.0XXA - Traumatic pneumothorax, initial encounter (5) Pelvic fracture: Qualified Code: S32.810A - Multiple closed fractures of pelvis with stable disruption of pelvic robinson, initial encounter Simon Lomax MD Dec 03, 2016 11:09
[2016-12-03] MEDS: HYDROmorphone HCL PF 1 MG/ML VIAL IVP PRN (12:18)
--- NOTE | 2016-12-03 15:02 | HHI.PR ---
Subjective Subjective Notes Complains of uncontrolled pain all over Reports he takes the following medications at home: Robaxin 750mg TID, Oxycodone 10mg QID and Oramorph 30 BID. Reports he has been unable to participate in PT to get OOB d/t pain States he has not been sleeping well Objective Vitals/I&O Vital Signs Date Time Temp Pulse Resp B/P Pulse Ox O2 Delivery O2 Flow Rate FiO2 12/03/16 12:00 97.8 100 18 163/73 96 12/03/16 07:50 Nasal Cannula 2.00 Labs Laboratory Tests Test 12/03/16 04:54 White Blood Count 14.0 Red Blood Count 2.28 Hemoglobin 8.2 Hematocrit 23.7 Mean Corpuscular Volume 104.0 Mean Corpuscular Hemoglobin 36.0 Mean Corpuscular Hemoglobin 34.7 Concent Red Cell Distribution Width 12.8 Platelet Count 219 Mean Platelet Volume 7.9 Sodium Level 138 Potassium Level 3.5 Chloride Level 103 Carbon Dioxide Level 25.9 Anion Gap 9 Blood Urea Nitrogen 10 Creatinine 0.35 Estimat Glomerular Filtration 253 Rate Random Glucose 123 Calcium Level 8.1 Radiology Last Impressions Chest X-Ray 11/27/16 0600 Signed Impressions: Service Date/Time: Sunday, November 27, 2016 06:05 - CONCLUSION: 1. Left chest tube remains present and no pneumothorax is visualized. 2. There is a small left pleural effusion with associated volume loss and/or consolidation at the lung base. Neel Mahan MD Pelvis X-Ray 11/25/161950 Signed Impressions: Service Date/Time: November 19:44 - CONCLUSION: Bilateral pubic rami and left sacral fractures. Neel Moyer MD Head CT 11/25/161950 Signed Impressions: Service Date/Time: November 20:06 - CONCLUSION: Motion degraded study without convincing evidence of acute intracranial hemorrhage. Followup noncontrasted head CT suggested in 24 hours. Neel Moyer MD Chest CT 11/25/161950 Signed Impressions: Service Date/Time: November 20:10 - CONCLUSION: Multiple left rib fractures with moderate left pneumothorax, tiny left hemothorax and probable contusion of the left lower lobe. Neel Moyer MD Cervical Spine CT 11/25/161950 Signed Impressions: Service Date/Time: November 20:06 - CONCLUSION: 1. No fracture or subluxation of the cervical spine. 2. Degenerative changes with a chronic appearing disc osteophyte complex and uncovertebral/facet osteoarthritis causing severe spinal and bilateral foraminal stenosis at C6-C7. 3. Small, age-indeterminate posterior disc protrusion at C7/T1 causing mild spinal stenosis. Neel Moyer MD Abdomen/Pelvis CT 11/25/161950 Signed Impressions: Service Date/Time: November 20:10 - CONCLUSION: 1. No evidence of acute visceral or injury. 2. Fractures of the left body and ala of the sacrum with mildly displaced fracturing in the region of the left S2/S3 foramen. 3. Bilateral superior and inferior pubic rami fractures and a nondisplaced fracture of the left acetabulum. 4. Small presacral and left iliopsoas hematomas. I don't see active bleeding. Neel Moyer MD Thoracic Spine CT 11/25/16 0000 Signed Impressions: Service Date/Time: November 20:10 - CONCLUSION: Left T12 transverse process and facet fracture, minimally displaced. Multiple left posterior rib fractures and placed refer to the chest CT report. Thoracic vertebral bodies are intact. No subluxations. Neel Moyer MD Lumbar Spine CT 11/25/16 0000 Signed Impressions: Service Date/Time: November 20:10 - CONCLUSION: 1. Minimally to mildly displaced left transverse process fractures of L1-L4. 2. Multilevel degenerative changes as above. Large right paracentral disc fragment at L4/L5, probably nonacute. Neel Moyer MD Narrative Exam GENERAL: 61 year old disheveled male lying in bed. SKIN: Warm and dry. NECK: Trachea midline. No JVD. CARDIOVASCULAR: Regular rate and rhythm. RESPIRATORY: Lungs clear to auscultation. LEFT lateral CT in place secured to pleura vac. No air leak noted. GASTROINTESTINAL: Abdomen soft and distended. Non-tender to palpation. + BS. MUSCULOSKELETAL: Extremities without cyanosis, or edema. No obvious deformities. NEUROLOGICAL: Awake and alert. Normal speech. A/P Problem List: (1) Pelvic fracture (2) Traumatic pneumothorax (3) Fall from ladder (4) Lung contusion (5) Multiple rib fractures Assessment and Plan INJURIES: Multiple LEFT rib fxs LEFT PTX Tiny LEFT hemoPTX (w/ CT LEFT lower lobe contusion (spinal stenosis C6-C7) (Disk protrusion C7-T1- spinal stenosis) LEFT S2-S3 foramen fx (mild displaced) BILAT superior and inferior pubic rami fx (non-op) LEFT sacral Fx (non-op) LEFT acetabulum fx (non-displaced) (non-op) Diet; Regular Pulm: IS, acapella, EZpap. Nebs. CT in place secured to pleura-vac. Pain; Roxicodone. Robaxin. Ibuprofen. Neurontin. Increased Dilaudid IV frequency for breakthrough. Added PRN Ambien for insomnia. Activity: OOB. PT and OT evaluating. (WBAT RLE; TTWB LLE). Patient has been requiring maximum assistance from PT to sit at the side of the bed. GI: Pepcid Bowel: Roseanne-colace. MOM HS. Lactulose. LBM 12/02 DVT: SCD's. Lovenox CXR in AM. Chest tube not draining. RN to call IR and notify them of absence of drainage. CXR still shows effusion is present. Plan of care discussed with patient and nurse at bedside. Case management consulted for discharge planning. Patient will need rehabilitation versus SNF. Attending Statement Patient seen at bedside adjust pain meds case mgnt for further plan Attestation The exam, history, and the medical decision-making described in the above note were completed with the assistance of the mid-level provider. I reviewed and agree with the findings presented. I attest that I had a [id number] encounter with the patient on the same day, and personally performed and documented my assessment and findings in the medical record. Problem Qualifiers (1) Pelvic fracture: Qualified Code: S32.810A - Multiple closed fractures of pelvis with stable disruption of pelvic alutiiq, initial encounter (2) Traumatic pneumothorax: Qualified Code: S27.0XXA - Traumatic pneumothorax, initial encounter (3) Fall from ladder: Qualified Code: W11.XXXA - Fall from ladder, initial encounter (4) Lung contusion: Qualified Code: S27.321A - Contusion of left lung, initial encounter (5) Multiple rib fractures: Qualified Code: S22.42XA - Closed fracture of multiple ribs of left side, initial encounter Ni Serrano Dec 03, 2016 15:02 Manny Betancourt MD Dec 26, 2016 20:48
[2016-12-03] MEDS: MORPHINE SULFATE 30 MG CONTROLLED RELEASE TAB PO SCH (20:34)
[2016-12-03] MEDS: FAMOTIDINE 20 MG TAB PO SCH (20:34)
[2016-12-03] MEDS: REMOVE OLD NICODERM (NICOTINE) PATCH TD SCH (20:35)
[2016-12-03] MEDS: MAGNESIUM HYDROXIDE SUSP 30 ML CUP PO SCH (20:44)
[2016-12-03] MEDS: ZOLPIDEM TARTRATE 5 MG TAB PO PRN (20:44)
[2016-12-03] MEDS ORDERED: IOHEXOL 350 MG/ML 10 ML VIAL (for RAD DIAG) IV ONE (22:06)
--- NOTE | 2016-12-03 22:52 | RADRPT ---
EXAM DATE/TIME: 12/03/2016 21:59 [facility] COMPARISON: CT THORAX W CONTRAST, November 28, 2016, 13:46. CT GUIDED CHEST TUBE PLACEMENT LEFT, November 30 17, 9:48. INDICATIONS : Retained left hemothorax. IV CONTRAST: 60 cc Omnipaque 350 (iohexol) IV RADIATION DOSE: 5.1 CTDIvol (mGy) MEDICAL HISTORY : hemothorax; pneumothorax. SURGICAL HISTORY : Chest tube placement. ENCOUNTER: Subsequent ACUITY: 1 week PAIN SCALE: 4/10 LOCATION: Left chest TECHNIQUE: Volumetric scanning of the chest was performed. Using automated exposure control and adjustment of t he mA and/or kV according to patient size, radiation dose was kept as low as reasonably achievable to obtain optimal diagnostic quality images. FINDINGS: Comparison is November 28. A left-sided chest tube remains present. The tip of the tube is mostly abov e the loculated left pleural effusion. There is an increase in loculated air within the left pleural effusion since November 28. The CT findings are concerning for empyema. There is associated consolidat ion in the left lung posteriorly. There is patchy airspace disease also in the right lung slightly increased from November 28 most nathalia cteristic of a pneumonia. Borderline enlarged mediastinal lymph nodes are noted, especially AP window and right paratracheal. T race pericardial fluid. No acute findings in the upper abdomen. CONCLUSION: 1. Left chest tube is present with the tip of the chest tube mostly above loculated air and fluid in the left pleural space. Cannot exclude a left-sided empyema. Patchy bronchopneumonia also suspected, right greater than left. Zachery Aquino MD on December 03, 2016 at 22:47 Board Certified Radiologist. This report was verified electronically.
[2016-12-04] VITALS (7 sets, daily range): BP systolic 142–178; BP diastolic 60–80; PULSE 97–116; RESP 14–24; TEMP 98.6–100.5; O2SAT 91–97
[2016-12-04] MEDS: ACETAMINOPHEN 1000 MG/100 ML VIAL IV SCH ×3 (04:53→20:16)
[2016-12-04] MEDS: RESP: ALBUTEROL 2.5 MG/IPRATROPIUM 0.5 MG NEB (SCH) NEB ×2 (08:04→11:41)
[2016-12-04] MEDS: MORPHINE SULFATE 30 MG CONTROLLED RELEASE TAB PO SCH ×2 (08:05→20:13)
[2016-12-04] MEDS: LISINOPRIL 10 MG TAB PO SCH (08:06)
[2016-12-04] MEDS: LEVOFLOXACIN 750 MG TAB PO SCH (08:06)
[2016-12-04] MEDS: GABAPENTIN 300 MG CAP PO SCH ×3 (08:06→16:45)
[2016-12-04] MEDS: DOCUSATE SODIUM 50 MG/SENNA 8.6 MG TAB PO SCH ×2 (08:06→20:14)
[2016-12-04] MEDS: NICOTINE 14 MG/24 HR PATCH TD SCH (08:08)
[2016-12-04] MEDS: ENOXAPARIN SODIUM 30 MG/0.3 ML SYRINGE SQ SCH ×2 (09:33→20:16)
[2016-12-04] MEDS: HYDROmorphone HCL PF 1 MG/ML VIAL IVP PRN ×2 (10:35→14:55)
[2016-12-04] MEDS ORDERED: ceFAZolin 2 GM PREMIX 50 ML IV SCH (10:45)
--- NOTE | 2016-12-04 10:53 | PD.CAR.PN ---
CVT Progress Note Subjective/Hospital Course: 61-year-old male who fell from the a ladder sustaining left hemopneumothorax with rib fractures Patient is now 6 days later and has a large and loculated hemothorax on the left side with some air fluid levels possibly even developing empyema Left chest tube is not draining much because its in the in loculated area of clot/empyema Patient for thoracoscopy possible thoracotomy tomorrow with evacuation of empyema Objective: Vital Signs Date Time Temp Pulse Resp B/P Pulse Ox O2 Delivery O2 Flow Rate FiO2 12/04/16 08:05 Nasal Cannula 2.00 12/04/16 08:04 94 Nasal Cannula 2.00 12/04/16 08:00 98.6 97 17 176/77 94 12/04/16 00:00 99.6 106 22 142/66 95 12/03/16 20:10 Nasal Cannula 2.00 Humidified 12/03/16 20:00 101.3 123 24 189/83 95 12/03/16 19:06 97 Nasal Cannula 2.00 12/03/16 16:00 98.9 107 18 176/80 96 12/03/16 12:00 97.8 100 18 163/73 96 Result Diagram: 12/03/16 0454 12/03/16 0454 Daina Faustin MD Dec 04, 2016 10:53
--- NOTE | 2016-12-04 11:19 | PD.ORT.PN ---
Subjective Subjective Remarks Pt laying comfortably in bed. He admits last night he was able to make transfers with ease. He states his pain is well under control. Admits to history of chronic pain management. No other complaints at this time. Objective Vitals Vital Signs Date Time Temp Pulse Resp B/P Pulse Ox O2 Delivery O2 Flow Rate FiO2 12/04/16 08:05 Nasal Cannula 2.00 12/04/16 08:04 94 Nasal Cannula 2.00 12/04/16 08:00 98.6 97 17 176/77 94 12/04/16 00:00 99.6 106 22 142/66 95 12/03/16 20:10 Nasal Cannula 2.00 Humidified 12/03/16 20:00 101.3 123 24 189/83 95 12/03/16 19:06 97 Nasal Cannula 2.00 12/03/16 16:00 98.9 107 18 176/80 96 12/03/16 12:00 97.8 100 18 163/73 96 I/O 12/03/16 12/03/16 12/03/16 12/04/16 12/04/16 12/04/16 07:00 15:00 23:00 07:00 15:00 23:00 Intake Total 730 ml 1276 ml 480 ml 480 ml Output Total 300 ml 950 ml 200 ml 1000 ml Balance 430 ml 326 ml 280 ml -520 ml Intake Oral 480 ml 960 ml 480 ml 480 ml IV Total 250 ml 316 ml Output Urine Total 300 ml 950 ml 200 ml 1000 ml Chest Tube Drainage Total 0 ml 0 ml 0 ml # Bowel Movements 1 0 0 Result Diagram: 12/03/16 0454 12/03/16 0454 Imaging Last 24 hours Impressions Chest X-Ray 11/26/16 0000 Signed Impressions: Service Date/Time: Saturday, November 26, 2016 03:32 - CONCLUSION: 1. Left chest tube remains present and there is likely a tiny left apical pneumothorax present. There is stable air along the left chest wall. 2. Stable left lung base airspace opacity representing either atelectasis or consolidation. Neel Mahan MD Pelvis X-Ray 11/25/161950 Signed Impressions: Service Date/Time: November 19:44 - CONCLUSION: Bilateral pubic rami and left sacral fractures. Neel Moyer MD Head CT 11/25/161950 Signed Impressions: Service Date/Time: November 20:06 - CONCLUSION: Motion degraded study without convincing evidence of acute intracranial hemorrhage. Followup noncontrasted head CT suggested in 24 hours. Neel Moyer MD Chest X-Ray 11/25/161950 Signed Impressions: Service Date/Time: November 19:44 - CONCLUSION: Multiple posterior left rib fractures with a left base parenchymal contusion. Neel Moyer MD Chest CT 11/25/161950 Signed Impressions: Service Date/Time: November 20:10 - CONCLUSION: Multiple left rib fractures with moderate left pneumothorax, tiny left hemothorax and probable contusion of the left lower lobe. Neel Moyer MD Cervical Spine CT 11/25/161950 Signed Impressions: Service Date/Time: November 20:06 - CONCLUSION: 1. No fracture or subluxation of the cervical spine. 2. Degenerative changes with a chronic appearing disc osteophyte complex and uncovertebral/facet osteoarthritis causing severe spinal and bilateral foraminal stenosis at C6-C7. 3. Small, age-indeterminate posterior disc protrusion at C7/T1 causing mild spinal stenosis. Neel Moyer MD Abdomen/Pelvis CT 11/25/161950 Signed Impressions: Service Date/Time: November 20:10 - CONCLUSION: 1. No evidence of acute visceral or injury. 2. Fractures of the left body and ala of the sacrum with mildly displaced fracturing in the region of the left S2/S3 foramen. 3. Bilateral superior and inferior pubic rami fractures and a nondisplaced fracture of the left acetabulum. 4. Small presacral and left iliopsoas hematomas. I don't see active bleeding. Neel Moyer MD Objective Remarks Pelvis: slight discomfort with movement of legs. NVI distally Assessment & Plan Assessment and Plan 1) Left Sacral Fxs 2) Bilateral sup/inf rami fxs -nonop -WBAT on RLE -TTWB LLE pain control ortho cleared for DC when medically cleared Follow-up with Dr. Scott or PA in 2 weeks Tish Kaur Dec 04, 2016 11:19
--- NOTE | 2016-12-04 14:04 | HHI.PR ---
Subjective Subjective Notes CT chest done last night. Patient reports pain is better controlled. Objective Vitals/I&O Vital Signs Date Time Temp Pulse Resp B/P Pulse Ox O2 Delivery O2 Flow Rate FiO2 12/04/16 08:05 Nasal Cannula 2.00 12/04/16 08:04 94 12/04/16 08:00 98.6 97 17 176/77 Radiology Last Impressions Chest X-Ray 11/27/16 0600 Signed Impressions: Service Date/Time: Sunday, November 27, 2016 06:05 - CONCLUSION: 1. Left chest tube remains present and no pneumothorax is visualized. 2. There is a small left pleural effusion with associated volume loss and/or consolidation at the lung base. Neel Mahan MD Pelvis X-Ray 11/25/161950 Signed Impressions: Service Date/Time: November 19:44 - CONCLUSION: Bilateral pubic rami and left sacral fractures. Neel Moyer MD Head CT 11/25/161950 Signed Impressions: Service Date/Time: November 20:06 - CONCLUSION: Motion degraded study without convincing evidence of acute intracranial hemorrhage. Followup noncontrasted head CT suggested in 24 hours. Neel Moyer MD Chest CT 11/25/161950 Signed Impressions: Service Date/Time: November 20:10 - CONCLUSION: Multiple left rib fractures with moderate left pneumothorax, tiny left hemothorax and probable contusion of the left lower lobe. Neel Moyer MD Cervical Spine CT 11/25/161950 Signed Impressions: Service Date/Time: November 20:06 - CONCLUSION: 1. No fracture or subluxation of the cervical spine. 2. Degenerative changes with a chronic appearing disc osteophyte complex and uncovertebral/facet osteoarthritis causing severe spinal and bilateral foraminal stenosis at C6-C7. 3. Small, age-indeterminate posterior disc protrusion at C7/T1 causing mild spinal stenosis. Neel Moyer MD Abdomen/Pelvis CT 11/25/161950 Signed Impressions: Service Date/Time: November 20:10 - CONCLUSION: 1. No evidence of acute visceral or injury. 2. Fractures of the left body and ala of the sacrum with mildly displaced fracturing in the region of the left S2/S3 foramen. 3. Bilateral superior and inferior pubic rami fractures and a nondisplaced fracture of the left acetabulum. 4. Small presacral and left iliopsoas hematomas. I don't see active bleeding. Neel Moyer MD Thoracic Spine CT 11/25/16 0000 Signed Impressions: Service Date/Time: November 20:10 - CONCLUSION: Left T12 transverse process and facet fracture, minimally displaced. Multiple left posterior rib fractures and placed refer to the chest CT report. Thoracic vertebral bodies are intact. No subluxations. Neel Moyer MD Lumbar Spine CT 11/25/16 0000 Signed Impressions: Service Date/Time: November 20:10 - CONCLUSION: 1. Minimally to mildly displaced left transverse process fractures of L1-L4. 2. Multilevel degenerative changes as above. Large right paracentral disc fragment at L4/L5, probably nonacute. Neel Moyer MD Narrative Exam GENERAL: 61 year old disheveled male lying in bed. SKIN: Warm and dry. NECK: Trachea midline. No JVD. CARDIOVASCULAR: Regular rate and rhythm. RESPIRATORY: Lungs clear to auscultation. LEFT lateral CT in place secured to pleura vac. No air leak noted. GASTROINTESTINAL: Abdomen soft and distended. Non-tender to palpation. + BS. MUSCULOSKELETAL: Extremities without cyanosis, or edema. No obvious deformities. NEUROLOGICAL: Awake and alert. Normal speech. A/P Problem List: (1) Pelvic fracture (2) Traumatic pneumothorax (3) Fall from ladder (4) Lung contusion (5) Multiple rib fractures Assessment and Plan INJURIES: Multiple LEFT rib fxs LEFT PTX Tiny LEFT hemoPTX LEFT lower lobe contusion (spinal stenosis C6-C7) (Disk protrusion C7-T1- spinal stenosis) LEFT S2-S3 foramen fx (mild displaced) BILAT superior and inferior pubic rami fx (non-op) LEFT sacral Fx (non-op) LEFT acetabulum fx (non-displaced) (non-op) Diet; Regular Pulm: IS, acapella, EZpap. Nebs. CT in place secured to pleura-vac. Pain; Roxicodone. Robaxin. Ibuprofen. Neurontin. Dilaudid IV for breakthrough. Ambien for insomnia. Activity: OOB. PT and OT evaluating. (WBAT RLE; TTWB LLE). Patient has been requiring maximum assistance from PT to sit at the side of the bed. GI: Pepcid Bowel: Roseanne-colace. MOM HS. Lactulose. LBM 12/04 DVT: SCD's. Lovenox Persistent HTN. Increased Lisinopril dose. CT chest shows loculated effusion is still present despite chest tube being in place. CT results discussed with Dr. Faustin and he plans to take patient to the OR tomorrow for left thoracoscopy with possible thoracotomy and evacuation of empyema. Plan of care discussed with patient and nurse at bedside. Case management consulted for discharge planning. Patient will need rehabilitation versus SNF. The exam, history, and the medical decision-making described in the above note were completed with the assistance of the mid-level provider. I reviewed and agree with the findings presented. I attest that I had a [id number] encounter with the patient on the same day, and personally performed and documented my assessment and findings in the medical record. Problem Qualifiers (1) Pelvic fracture: Qualified Code: S32.810A - Multiple closed fractures of pelvis with stable disruption of pelvic [place], initial encounter (2) Traumatic pneumothorax: Qualified Code: S27.0XXA - Traumatic pneumothorax, initial encounter (3) Fall from ladder: Qualified Code: W11.XXXA - Fall from ladder, initial encounter (4) Lung contusion: Qualified Code: S27.321A - Contusion of left lung, initial encounter (5) Multiple rib fractures: Qualified Code: S22.42XA - Closed fracture of multiple ribs of left side, initial encounter Ni Serrano Dec 04, 2016 14:03 Tyshawn Hollins MD Dec 04, 2016 14:39
[2016-12-04] MEDS ORDERED: LISINOPRIL 10 MG TAB PO ONE (14:15)
--- NOTE | 2016-12-04 14:29 | HHI.PR ---
Subjective Remarks Follow-up pneumonia/traumatic pneumothorax Patient seen and examined Denies any chest pain or shortness of breath. Objective Vitals Vital Signs Date Time Temp Pulse Resp B/P Pulse Ox O2 Delivery O2 Flow Rate FiO2 12/04/16 08:05 Nasal Cannula 2.00 12/04/16 08:04 94 Nasal Cannula 2.00 12/04/16 08:00 98.6 97 17 176/77 94 12/04/16 00:00 99.6 106 22 142/66 95 12/03/16 20:10 Nasal Cannula 2.00 Humidified 12/03/16 20:00 101.3 123 24 189/83 95 12/03/16 19:06 97 Nasal Cannula 2.00 12/03/16 16:00 98.9 107 18 176/80 96 I/O 12/03/16 12/03/16 12/03/16 12/04/16 12/04/16 12/04/16 07:00 15:00 23:00 07:00 15:00 23:00 Intake Total 730 ml 1276 ml 480 ml 480 ml Output Total 300 ml 950 ml 200 ml 1000 ml Balance 430 ml 326 ml 280 ml -520 ml Intake Oral 480 ml 960 ml 480 ml 480 ml IV Total 250 ml 316 ml Output Urine Total 300 ml 950 ml 200 ml 1000 ml Chest Tube Drainage Total 0 ml 0 ml 0 ml # Bowel Movements 1 0 0 Result Diagram: 12/03/16 0454 12/03/16 0454 Imaging Last Impressions Chest X-Ray 12/03/16 0600 Signed Impressions: Service Date/Time: Saturday, December 03, 2016 06:34 - CONCLUSION: Stable chest Jacek Lopez MD Chest CT 12/03/16 0000 Signed Impressions: Service Date/Time: Saturday, December 03, 2016 21:59 - CONCLUSION: 1. Left chest tube is present with the tip of the chest tube mostly above loculated air and fluid in the left pleural space. Cannot exclude a left-sided empyema. Patchy bronchopneumonia also suspected, right greater than left. Zachery Aquino MD Pelvis X-Ray 11/30/16 0000 Signed Impressions: Service Date/Time: Wednesday, November 30, 2016 10:32 - CONCLUSION: 1. Bilateral pubic rami fractures. 2. Apparent nondisplaced fracture through the left sacrum. Jovan Chu MD Chest Tube Insertion 11/30/16 0000 Signed Impressions: Service Date/Time: Wednesday, November 30, 2016 09:48 - CONCLUSION: Uncomplicated chest tube placement as above. Drake Corona MD Head CT 11/25/161950 Signed Impressions: Service Date/Time: November 20:06 - CONCLUSION: Motion degraded study without convincing evidence of acute intracranial hemorrhage. Followup noncontrasted head CT suggested in 24 hours. Neel Moyer MD Cervical Spine CT 11/25/161950 Signed Impressions: Service Date/Time: November 20:06 - CONCLUSION: 1. No fracture or subluxation of the cervical spine. 2. Degenerative changes with a chronic appearing disc osteophyte complex and uncovertebral/facet osteoarthritis causing severe spinal and bilateral foraminal stenosis at C6-C7. 3. Small, age-indeterminate posterior disc protrusion at C7/T1 causing mild spinal stenosis. Neel Moyer MD Abdomen/Pelvis CT 11/25/161950 Signed Impressions: Service Date/Time: November 20:10 - CONCLUSION: 1. No evidence of acute visceral or injury. 2. Fractures of the left body and ala of the sacrum with mildly displaced fracturing in the region of the left S2/S3 foramen. 3. Bilateral superior and inferior pubic rami fractures and a nondisplaced fracture of the left acetabulum. 4. Small presacral and left iliopsoas hematomas. I don't see active bleeding. Neel Moyer MD Thoracic Spine CT 11/25/16 0000 Signed Impressions: Service Date/Time: November 20:10 - CONCLUSION: Left T12 transverse process and facet fracture, minimally displaced. Multiple left posterior rib fractures and placed refer to the chest CT report. Thoracic vertebral bodies are intact. No subluxations. Nele Moyer MD Lumbar Spine CT 11/25/16 0000 Signed Impressions: Service Date/Time: November 20:10 - CONCLUSION: 1. Minimally to mildly displaced left transverse process fractures of L1-L4. 2. Multilevel degenerative changes as above. Large right paracentral disc fragment at L4/L5, probably nonacute. Neel Moyer MD Objective Remarks GENERAL: NAD SKIN: Warm and dry. HEAD: Normocephalic. EYES: No scleral icterus. No injection or drainage. NECK: Supple, trachea midline. No JVD or lymphadenopathy. CARDIOVASCULAR: Regular rate and rhythm without murmurs, gallops, or rubs. RESPIRATORY: Breath sounds equal bilaterally. No accessory muscle use. Left- sided chest tube in place GASTROINTESTINAL: Abdomen soft, non-tender, nondistended. MUSCULOSKELETAL: No cyanosis, or edema. BACK: Nontender without obvious deformity. No CVA tenderness. A/P Problem List: (1) Multiple rib fractures ICD Code: S22.49XA Status: Acute (2) Lung contusion ICD Code: S27.329A Status: Acute (3) Fall from ladder ICD Code: W11.XXXA Status: Acute (4) Traumatic pneumothorax ICD Code: S27.0XXA Status: Acute (5) Pelvic fracture ICD Code: S32.9XXA Status: Acute (6) HTN (hypertension) ICD Code: I10 Status: Acute (7) EtOH dependence ICD Code: F10.20 Status: Acute Assessment and Plan 61-year-old male with EtOH abuse, dependence - Continue with CIWA protocol Pneumonia - - Continue Levaquin, change to oral to complete the course - Nebulizer treatments scheduled. - Monitor respiratory status. Macrocytic anemia - secondary to EtOH dependence - Thiamine, folate Hyponatremia - Resolved Status post fall, multiple rib fractures, pubic rib fractures, pelvic fractures with sacral fracture nondisplaced acetabular fracture - Orthopedic following patient. Weightbearing status was ordered. Recommended toe-touch weightbearing on the left leg. He may weight bear as tolerated on the right leg for transfers. - Pain management. Patient with chronic pain even prior to this hospitalization. Will add Morphine ER. Left upper lobe loculated effusion/Hemothorax - continue chest tube management per primary team. Plan for VATS 12/05/16 by CTS - 2 L nasal cannula Tobacco use -nicotine patch HTN :Continue lisinopril. clonidine as needed and Vasotec when necessary. Continue to monitor BP trend DVT prop Lovenox GI famotidine Problem Qualifiers (1) Multiple rib fractures: Qualified Code: S22.42XA - Closed fracture of multiple ribs of left side, initial encounter (2) Lung contusion: Qualified Code: S27.321A - Contusion of left lung, initial encounter (3) Fall from ladder: Qualified Code: W11.XXXA - Fall from ladder, initial encounter (4) Traumatic pneumothorax: Qualified Code: S27.0XXA - Traumatic pneumothorax, initial encounter (5) Pelvic fracture: Qualified Code: S32.810A - Multiple closed fractures of pelvis with stable disruption of pelvic [place], initial encounter Melecio Banks MD Dec 04, 2016 14:29
[2016-12-04] MEDS: MAGNESIUM HYDROXIDE SUSP 30 ML CUP PO SCH (20:13)
[2016-12-04] MEDS: FAMOTIDINE 20 MG TAB PO SCH (20:14)
[2016-12-04] MEDS: REMOVE OLD NICODERM (NICOTINE) PATCH TD SCH (20:14)
[2016-12-04] MEDS: RESP: ALBUTEROL 2.5 MG/IPRATROPIUM 0.5 MG NEB (PRN) NEB (21:58)
[2016-12-04] MEDS: ZOLPIDEM TARTRATE 5 MG TAB PO PRN (23:41)
[2016-12-05] VITALS (8 sets, daily range): BP systolic 131–161; BP diastolic 68–77; PULSE 73–106; RESP 17–23; TEMP 98.3–99.5; O2SAT 91–100
[2016-12-05] MEDS: ACETAMINOPHEN 1000 MG/100 ML VIAL IV SCH ×3 (05:11→21:01)
[2016-12-05] MEDS: HYDROmorphone HCL PF 1 MG/ML VIAL IVP PRN (05:12)
[2016-12-05] MEDS: SODIUM CHLORIDE 0.9% FLUSH 5 ML FLUSH IVF PRN (05:12)
[2016-12-05] MEDS ORDERED: KETAMINE HCL 500 MG/5 ML VIAL ONE (07:53)
[2016-12-05] MEDS ORDERED: BUPIVACAINE HCL PF 0.25% 30 ML VIAL ONE (08:15)
[2016-12-05] MEDS ORDERED: NS IPL ONE ×2 (09:00)
[2016-12-05] MEDS: LEVOFLOXACIN 750 MG TAB PO SCH (09:00)
[2016-12-05] MEDS: DOCUSATE SODIUM 50 MG/SENNA 8.6 MG TAB PO SCH ×2 (09:00→19:45)
[2016-12-05] MEDS ORDERED: POVIDONE IODINE 10% SOLN 118 ML BOTTLE TOPICAL ONE (09:00)
[2016-12-05] MEDS ORDERED: LISINOPRIL 20 MG TAB PO SCH (09:00)
[2016-12-05] MEDS: MORPHINE SULFATE 30 MG CONTROLLED RELEASE TAB PO SCH (09:00)
[2016-12-05] MEDS: LISINOPRIL 10 MG TAB PO SCH (09:00)
[2016-12-05] MEDS: NICOTINE 14 MG/24 HR PATCH TD SCH (09:00)
[2016-12-05] MEDS ORDERED: SODIUM CHLOR 0.9% 1000 ML INJ 1,000 ML IV SCH (09:00)
[2016-12-05] MEDS: GABAPENTIN 300 MG CAP PO SCH ×2 (09:00→18:00)
[2016-12-05] MEDS ORDERED: TALC STERILE IPL ONE ×2 (09:00)
[2016-12-05] MEDS: NS IPL SCH ×4 (09:01→09:15)
[2016-12-05] MEDS: TALC STERILE IPL SCH ×4 (09:01→09:15)
[2016-12-05] MEDS: ENOXAPARIN SODIUM 30 MG/0.3 ML SYRINGE SQ SCH (09:08)
[2016-12-05] MEDS ORDERED: LACTATED RINGER'S 1000 ML IV SCH (09:30)
[2016-12-05] MEDS ORDERED: SUGAMMADEX SODIUM 200 MG/2 ML VIAL IV PUSH ONE ×2 (10:32)
[2016-12-05] MEDS ORDERED: *morphine SULFATE 8 MG/ML PERIprocedure ONLY ONE ×3 (11:41→12:02)
[2016-12-05] MEDS ORDERED: MORPHINE SULFATE 8 MG/ML INJ IV PUSH ONE (11:41)
[2016-12-05] MEDS ORDERED: fentaNYL CITRATE 250 MCG/5 ML AMP ONE (11:42)
[2016-12-05] MEDS ORDERED: *MEPERIDINE 25 MG INJ VIAL PERIprocedural Use ONLY ONE (12:04)
[2016-12-05] MEDS ORDERED: MEPERIDINE HCL 25 MG/ML VIAL IV ONE (12:04)
[2016-12-05] MEDS ORDERED: DIMETHICONE/OXYBENZONE/PADMIATE LIP BALM 4.25 GM ONE (12:06)
[2016-12-05] MEDS ORDERED: NALOXONE HCL 0.4 MG/ML AMP IV PRN ×2 (12:15)
[2016-12-05] MEDS ORDERED: Post-op Orders (for Pharmacy) MISC XX ONE (12:15)
[2016-12-05] MEDS ORDERED: oxyCODONE/ACETAMINOPHEN 5 MG/325 MG TAB PO PRN (12:15)
[2016-12-05] MEDS ORDERED: MORPHINE SULFATE 30 MG/30 ML PCA IV SCH (12:15)
--- NOTE | 2016-12-05 12:33 | RADRPT ---
EXAM DATE/TIME: 12/05/2016 12:14 [facility] COMPARISON: CHEST SINGLE AP, December 03, 2016, 6:34. INDICATIONS : Post thoracotomy MEDICAL HISTORY : Pneumothorax SURGICAL HISTORY : chest tube, cervical fusion ENCOUNTER: Subsequent ACUITY: 1 week PAIN SCORE: Non-responsive. LOCATION: Bilateral chest FINDINGS: There are 2 left-sided chest tubes in place. No definite pneumothorax. There is some probable changes in the left lung base. There is some infiltrates in the right upper lung and left lower lung. The he art size is stable. The bony structures are stable. CONCLUSION: 1. 2 left-sided chest tubes in place with no pneumothorax. 2. Scattered infiltrates are noted in the right and left lungs. River Singer MD on December 05, 2016 at 12:31 Board Certified Radiologist. This report was verified electronically.
[2016-12-05] MEDS ORDERED: SODIUM CHLORID 0.9% 500 ML INJ 500 ML IV ONE (12:34)
[2016-12-05] MEDS ORDERED: PROPOFOL 200 MG/20 ML AMP IV ONE (12:34)
[2016-12-05] MEDS ORDERED: LACTATED RINGER'S 1000 ML INJ 1,000 ML IV ONE (12:34)
[2016-12-05] MEDS ORDERED: ONDANSETRON HCL 4 MG/2 ML VIAL IV PUSH ONE (12:34)
[2016-12-05] MEDS ORDERED: NORMOSOL R INJ 1,000 ML IV ONE (12:34)
[2016-12-05] MEDS ORDERED: PHENYLEPH/NS 1000 MCG/10 ML SYR IV ONE (12:34)
[2016-12-05] MEDS: SODIUM CHLOR 0.9% 1000 ML INJ 1,000 ML IV SCH ×2 (12:50→21:47)
--- NOTE | 2016-12-05 12:54 | EKG ---
Date Performed: 12/05/2016 Time Performed: 07:53:51 PTAGE: 61 years EKG: Sinus rhythm NORMAL ECG NO PREVIOUS TRACING DOCTOR: Cecilio Caballero Interpretating Date/Time 12/05/2016 12:50:06
[2016-12-05] MEDS: FLUCONAZOLE 200 MG PREMIX BAG 100 ML IV SCH (15:00)
[2016-12-05] MEDS: PIPERACIL-TAZO 4.5 GM PREMIX 100 ML IV SCH ×2 (15:10→21:59)
[2016-12-05] MEDS: VANCOMYCIN INJ 1,000 MG in SODIUM CHLOR 0.9% 250 ML INJ 250 ML IV SCH (15:10)
[2016-12-05] MEDS: PANTOPRAZOLE SOD 40 MG DELAYED RELEASE TAB PO SCH (15:10)
--- NOTE | 2016-12-05 16:26 | HHI.PR ---
Subjective Remarks patient seen and examined s/p VATS, thoracotomy and decortication with evacuation of left empyema no significant chest pain, some mild shortness of breath Objective Vitals Vital Signs Date Time Temp Pulse Resp B/P Pulse Ox O2 Delivery O2 Flow Rate FiO2 12/05/16 16:00 98.4 89 23 131/69 100 12/05/16 14:00 98.4 91 18 133/73 100 12/05/16 13:15 90 16 125/64 99 Nasal Cannula 3 12/05/16 13:00 90 16 123/65 98 Nasal Cannula 3 12/05/16 12:45 90 16 124/64 98 Nasal Cannula 3 12/05/16 12:30 88 16 127/62 98 Nasal Cannula 3 12/05/16 12:15 88 16 120/59 95 Nasal Cannula 3 12/05/16 12:00 88 16 158/71 96 Nasal Cannula 3 12/05/16 11:45 86 16 157/72 96 Nasal Cannula 3 12/05/16 11:30 97.8 96 16 145/70 95 Nasal Cannula 3 12/05/16 08:41 Nasal Cannula 2.00 12/05/16 08:00 98.7 100 17 157/74 91 12/05/16 00:00 99.5 106 22 154/68 94 12/04/16 22:00 93 Nasal Cannula 2.00 12/04/16 20:10 Nasal Cannula 2.00 Humidified 12/04/16 20:00 100.5 108 24 178/80 93 I/O 12/04/16 12/04/16 12/04/16 12/05/16 12/05/16 12/05/16 07:00 15:00 23:00 07:00 15:00 23:00 Intake Total 480 ml 1268 ml 240 ml 0 ml 100 ml Output Total 1000 ml 475 ml 525 ml 2100 ml 510 ml Balance -520 ml 793 ml -285 ml -2100 ml -410 ml Intake Oral 480 ml 430 ml 240 ml 0 ml IV Total 838 ml 100 ml Output Urine Total 1000 ml 475 ml 525 ml 2100 ml 300 ml Chest Tube Drainage Total 0 ml 0 ml 0 ml 0 ml 210 ml # Bowel Movements 0 0 0 0 Result Diagram: 12/03/16 0454 12/03/16 0454 Objective Remarks GENERAL: NAD SKIN: Warm and dry. HEAD: Normocephalic. EYES: No scleral icterus. No injection or drainage. NECK: Supple, trachea midline. No JVD or lymphadenopathy. CARDIOVASCULAR: Regular rate and rhythm without murmurs, gallops, or rubs. RESPIRATORY: Breath sounds equal bilaterally. No accessory muscle use. Left- sided chest tube in place GASTROINTESTINAL: Abdomen soft, non-tender, nondistended. MUSCULOSKELETAL: No cyanosis, or edema. BACK: Nontender without obvious deformity. No CVA tenderness. A/P Problem List: (1) Multiple rib fractures ICD Code: S22.49XA Status: Acute (2) Lung contusion ICD Code: S27.329A Status: Acute (3) Fall from ladder ICD Code: W11.XXXA Status: Acute (4) Traumatic pneumothorax ICD Code: S27.0XXA Status: Acute (5) Pelvic fracture ICD Code: S32.9XXA Status: Acute (6) HTN (hypertension) ICD Code: I10 Status: Acute (7) EtOH dependence ICD Code: F10.20 Status: Acute Assessment and Plan 61-year-old male with EtOH abuse, dependence - Continue with CIWA protocol Pneumonia - - Continue Levaquin, change to oral to complete the course - Nebulizer treatments scheduled. - Monitor respiratory status. Macrocytic anemia - secondary to EtOH dependence - Thiamine, folate Hyponatremia - Resolved Status post fall, multiple rib fractures, pubic rib fractures, pelvic fractures with sacral fracture nondisplaced acetabular fracture - Orthopedic following patient. Weightbearing status was ordered. Recommended toe-touch weightbearing on the left leg. He may weight bear as tolerated on the right leg for transfers. - Pain management. Patient with chronic pain even prior to this hospitalization. Will add Morphine ER. Left upper lobe loculated effusion/Hemothorax - continue chest tube management per primary team. - 2 L nasal cannula Left Lung empyema:s/p VATS, thoracotomy and decortication with evacuation of left empyema 12/05/16.Currently on Diflucan IV, Zosyn and Vancomycin.Management per CTS Tobacco use -nicotine patch HTN :Continue lisinopril. clonidine as needed and Vasotec when necessary. Continue to monitor BP trend DVT prop B-SCDs GI famotidine Problem Qualifiers (1) Multiple rib fractures: Qualified Code: S22.42XA - Closed fracture of multiple ribs of left side, initial encounter (2) Lung contusion: Qualified Code: S27.321A - Contusion of left lung, initial encounter (3) Fall from ladder: Qualified Code: W11.XXXA - Fall from ladder, initial encounter (4) Traumatic pneumothorax: Qualified Code: S27.0XXA - Traumatic pneumothorax, initial encounter (5) Pelvic fracture: Qualified Code: S32.810A - Multiple closed fractures of pelvis with stable disruption of pelvic [place], initial encounter Melecio Banks MD Dec 05, 2016 16:26
[2016-12-05] MEDS: SODIUM CHLORIDE 0.9% FLUSH 5 ML FLUSH IVF SCH (19:16)
[2016-12-05] MEDS: DOCUSATE SODIUM 100 MG CAP PO SCH (19:45)
[2016-12-05] MEDS: REMOVE OLD NICODERM (NICOTINE) PATCH TD SCH (19:45)
[2016-12-05] MEDS: MAGNESIUM HYDROXIDE SUSP 30 ML CUP PO SCH (19:45)
[2016-12-05] MEDS: PCA - TOTAL MG MORPHINE DELIVERED PER SHIFT SCH (19:46)
[2016-12-05] MEDS: ZOLPIDEM TARTRATE 5 MG TAB PO PRN (21:18)
[2016-12-05] MEDS: cloNIDine HCL 0.1 MG TAB PO PRN (21:18)
[2016-12-06] VITALS (14 sets, daily range): BP systolic 125–166; BP diastolic 58–84; PULSE 92–108; RESP 19–24; TEMP 98–99.7; O2SAT 93–100
[2016-12-06] MEDS: VANCOMYCIN INJ 1,000 MG in SODIUM CHLOR 0.9% 250 ML INJ 250 ML IV SCH (03:00)
[2016-12-06] MEDS: PCA - TOTAL MG MORPHINE DELIVERED PER SHIFT SCH (05:09)
[2016-12-06] MEDS: ACETAMINOPHEN 1000 MG/100 ML VIAL IV SCH (05:09)
--- NOTE | 2016-12-06 05:34 | RADRPT ---
EXAM DATE/TIME: 12/06/2016 05:02 [facility] COMPARISON: CHEST SINGLE AP, December 05, 2016, 12:14. INDICATIONS : Post thoracotomy. MEDICAL HISTORY : Hemithorax. Pneumothorax. SURGICAL HISTORY : Chest tube placement. ENCOUNTER: Subsequent ACUITY: 1 week PAIN SCORE: Non-responsive. LOCATION: Bilateral chest FINDINGS: The cardiac silhouette is enlarged in transverse diameter. A left chest tube is in place. There is no evidence of pneumothorax. There is left lower lobe atelectasis versus pneumonia. There has been no s ignificant change when compared to the prior exam. Wedge-shaped opacity in the right upper lobe is un changed. CONCLUSION: 1. Postsurgical changes as above. There is no evidence of pneumothorax. There has been no significan t change when compared to the prior exam. Mario Owen MD on December 06, 2016 at 5:31 Board Certified Radiologist. This report was verified electronically.
[2016-12-06 05:41] LABS: AUTOMATED NEUTROPHIL # 16.4 TH/MM3 (1.8-7.7); BASOPHIL # 0.1 TH/MM3 (0-0.2); BASOPHIL % 0.3 % (0.0-2.0); EOSINOPHIL % 0.1 % (0.0-4.0); HEMATOCRIT 24.9 % (39.0-51.0); LYMPH % 4.9 % (9.0-44.0); LYMPHOCYTE # 0.9 TH/MM3 (1.0-4.8); MEAN CELL VOLUME 106.7 FL (80.0-100.0); MEAN CORPUSCULAR HEMOGLOBIN 35.7 PG (27.0-34.0); MEAN CORPUSCULAR HGB CONC 33.4 % (32.0-36.0); MONO % 6.5 % (0.0-8.0); NEUT % 88.2 % (16.0-70.0); PLATELET COUNT 265 TH/MM3 (150-450); RED BLOOD COUNT 2.33 MIL/MM3 (4.50-5.90); RED CELL DISTRIBUTION WIDTH 13.3 % (11.6-17.2); WHITE BLOOD COUNT 18.6 TH/MM3 (4.0-11.0)
[2016-12-06 05:46] LABS: HEMO FLAGS AUTO DIFF
[2016-12-06] MEDS: PIPERACIL-TAZO 4.5 GM PREMIX 100 ML IV SCH ×2 (05:59→13:42)
[2016-12-06 06:00] LABS: POTASSIUM 4.1 MEQ/L (3.5-5.1)
[2016-12-06 06:51] LABS: BANDS 5 % (0-6); METAMYELOCYTES 1 % (0-1); NEUTROPHIL # MANUAL DIFF 16.9 TH/MM3 (1.8-7.7); POLYS (SEG NEUTROPHILS) 85 % (16-70); WBC DIFF SAMPLE 100
[2016-12-06 06:52] LABS: PLATELET ESTIMATE SMEAR NORMAL (NORMAL); PLATELET MORPHOLOGY NORMAL (NORMAL); SCAN/DIFF FINAL DIFF MANUAL
[2016-12-06] MEDS: DOCUSATE SODIUM 50 MG/SENNA 8.6 MG TAB PO SCH ×3 (08:49→20:51)
[2016-12-06] MEDS: SODIUM CHLOR 0.9% 1000 ML INJ 1,000 ML IV SCH (08:49)
[2016-12-06] MEDS: SODIUM CHLORIDE 0.9% FLUSH 5 ML FLUSH IVF SCH ×2 (08:49→20:45)
[2016-12-06] MEDS: GABAPENTIN 300 MG CAP PO SCH ×3 (08:49→17:17)
[2016-12-06] MEDS: NICOTINE 14 MG/24 HR PATCH TD SCH (08:49)
[2016-12-06] MEDS: DOCUSATE SODIUM 100 MG CAP PO SCH ×3 (08:49→20:51)
[2016-12-06] MEDS: LISINOPRIL 10 MG TAB PO SCH (08:49)
[2016-12-06] MEDS: ENOXAPARIN SODIUM 40 MG/0.4 ML SYRINGE SQ SCH (10:07)
--- NOTE | 2016-12-06 11:41 | HHI.PR ---
Subjective Remarks Patient seen and examined Complains of inadequate pain control Positive for some mild shortness of breath left sided chest pain at site of chest tube insertion Objective Vitals Vital Signs Date Time Temp Pulse Resp B/P Pulse Ox O2 Delivery O2 Flow Rate FiO2 12/06/16 10:00 108 12/06/16 09:53 99 21 12/06/16 08:00 102 12/06/16 08:00 98.1 102 20 155/69 100 Manual Cuff/Palpation 12/06/16 07:00 96 Room Air 12/06/16 06:00 103 12/06/16 05:09 18 12/06/16 04:00 99.5 99 21 125/84 99 12/06/16 04:00 103 12/06/16 03:47 24 12/06/16 02:00 99 12/06/16 00:00 99.7 100 19 129/58 95 12/06/16 00:00 100 12/05/16 22:00 97 12/05/16 20:00 73 12/05/16 20:00 98.3 99 18 161/77 99 12/05/16 19:46 18 12/05/16 19:43 97 Nasal Cannula 3.00 12/05/16 19:00 99 Nasal Cannula 3.00 12/05/16 18:21 96 Nasal Cannula 3.00 12/05/16 16:00 98.4 89 23 131/69 100 12/05/16 14:00 98.4 91 18 133/73 100 12/05/16 13:15 90 16 125/64 99 Nasal Cannula 3 12/05/16 13:00 90 16 123/65 98 Nasal Cannula 3 12/05/16 12:45 90 16 124/64 98 Nasal Cannula 3 12/05/16 12:30 88 16 127/62 98 Nasal Cannula 3 12/05/16 12:15 88 16 120/59 95 Nasal Cannula 3 12/05/16 12:00 88 16 158/71 96 Nasal Cannula 3 12/05/16 11:45 86 16 157/72 96 Nasal Cannula 3 I/O 12/05/16 12/05/16 12/05/16 12/06/16 12/06/16 12/06/16 07:00 15:00 23:00 07:00 15:00 23:00 Intake Total 0 ml 100 ml 1320 ml 1530 ml Output Total 2100 ml 510 ml 800 ml 650 ml Balance -2100 ml -410 ml 520 ml 880 ml Intake Oral 0 ml 450 ml 250 ml IV Total 100 ml 870 ml 1280 ml Output Urine Total 2100 ml 300 ml 650 ml 650 ml Chest Tube Drainage Total 0 ml 210 ml 150 ml 0 ml # Bowel Movements 0 0 0 Result Diagram: 12/06/1642312/06/16423 Objective Remarks GENERAL: NAD SKIN: Warm and dry. HEAD: Normocephalic. EYES: No scleral icterus. No injection or drainage. NECK: Supple, trachea midline. No JVD or lymphadenopathy. CARDIOVASCULAR: Regular rate and rhythm without murmurs, gallops, or rubs. RESPIRATORY: Breath sounds equal bilaterally. No accessory muscle use. Left- sided chest tube in place GASTROINTESTINAL: Abdomen soft, non-tender, nondistended. MUSCULOSKELETAL: No cyanosis, or edema. BACK: Nontender without obvious deformity. No CVA tenderness. A/P Problem List: (1) Multiple rib fractures ICD Code: S22.49XA Status: Acute (2) Lung contusion ICD Code: S27.329A Status: Acute (3) Fall from ladder ICD Code: W11.XXXA Status: Acute (4) Traumatic pneumothorax ICD Code: S27.0XXA Status: Acute (5) Pelvic fracture ICD Code: S32.9XXA Status: Acute (6) HTN (hypertension) ICD Code: I10 Status: Acute (7) EtOH dependence ICD Code: F10.20 Status: Acute Assessment and Plan 61-year-old male with EtOH abuse, dependence - Continue with CIWA protocol Pneumonia - - Continue Levaquin - Nebulizer treatments scheduled. - Monitor respiratory status. Macrocytic anemia - secondary to EtOH dependence - Thiamine, folate Hyponatremia - Resolved Status post fall, multiple rib fractures, pubic rib fractures, pelvic fractures with sacral fracture nondisplaced acetabular fracture - Orthopedic following patient. Weightbearing status was ordered. Recommended toe-touch weightbearing on the left leg. - Pain management. Patient with chronic pain even prior to this hospitalization. Will add Morphine ER. Left upper lobe loculated effusion/Hemothorax - continue chest tube management per primary team. - 2 L nasal cannula Left Lung empyema:s/p VATS, thoracotomy and decortication with evacuation of left empyema 12/05/16.Currently on Diflucan IV, Zosyn and Vancomycin.Management per CTS. change Percocet to 10mg every 4H breakthrough Tobacco use -nicotine patch HTN :Continue lisinopril. clonidine as needed and Vasotec when necessary. Continue to monitor BP trend DVT prop B-SCDs GI famotidine Problem Qualifiers (1) Multiple rib fractures: Qualified Code: S22.42XA - Closed fracture of multiple ribs of left side, initial encounter (2) Lung contusion: Qualified Code: S27.321A - Contusion of left lung, initial encounter (3) Fall from ladder: Qualified Code: W11.XXXA - Fall from ladder, initial encounter (4) Traumatic pneumothorax: Qualified Code: S27.0XXA - Traumatic pneumothorax, initial encounter (5) Pelvic fracture: Qualified Code: S32.810A - Multiple closed fractures of pelvis with stable disruption of pelvic [place], initial encounter Melecio Banks MD Dec 06, 2016 11:41
[2016-12-06] MEDS: PANTOPRAZOLE SOD 40 MG DELAYED RELEASE TAB PO SCH (13:42)
[2016-12-06] MEDS: oxyCODONE/ACETAMINOPHEN 10 MG/325 MG TAB PO PRN ×4 (13:42→23:53)
[2016-12-06] MEDS: ACETAMINOPHEN 500 MG CPLT PO SCH ×2 (13:43→20:45)
[2016-12-06] MEDS: FLUCONAZOLE 200 MG PREMIX BAG 100 ML IV SCH (13:46)
[2016-12-06] MEDS ORDERED: Vancomycin Consult Pharmacy 1 EA OTHER SCH (14:45)
--- NOTE | 2016-12-06 15:39 | PD.ID.CON ---
History of Present Illness Service ID Consult Requested By / Shoshana LOCO Reason for Consult Evaluation and Mment of possible empyema Primary Care Physician Unknown Diagnoses: History of Present Illness is a 61 y/o CM who was admitted as a trauma alert after he fell off a ladder ~ 20 feet [place] adjusting lights. He sustained multiple left-sided rib fractures with hemopneumothorax. He underwent placement of Chest tube and eventually this was not draining much. Concern for empyema lead to a left side VATS and placement of new CTs x 2. Cultures from VATS are pending at this time and no growth so far. He also was seen by ortho for multiple pelvic fractures including sacral fracture and nondisplaced acetabular fracture. Throughout his ICU stay patient has had fever on 1 day of 101 on 12/03/16 which lead to VATS. Patient has been on Zosyn IV and Vanco IV and ID is consulted to help evaluate for possible empyema and antibiotic management. Patient chart revealed PCN as allergy unknown per chart but severe. Upon questioning his daughter reported he has had hives in childhood but no recent Penicillin. I informed her that he tolerated 2 doses of Zosyn IV which is a PCN group medication and he tolerated well. I updated the allergy section to reflect the above facts. He denies any fever, night sweats or any history suggestive of infection prior to fall. Review of Systems ROS Limitations: Poor Historian Constitutional: DENIES: Diaphoretic episodes, Fatigue, Fever, Weight gain, Weight loss, Chills, Dizziness, Change in appetite, Night Sweats Endocrine: DENIES: Heat/cold intolerance, Polydipsia, Polyuria, Polyphagia Eyes: DENIES: Blurred vision, Diplopia, Eye inflammation, Eye pain, Vision loss , Photosensitivity, Double Vision Ears, nose, mouth, throat: DENIES: Tinnitus, Hearing loss, Vertigo, Nasal discharge, Oral lesions, Throat pain, Hoarseness, Ear Pain, Running Nose, Epistaxis, Sinus Pain, Toothache, Odynophagia Respiratory: DENIES: Apneas, Cough, Snoring, Wheezing, Hemoptysis, Sputum production, Shortness of breath Cardiovascular: COMPLAINS OF: Chest pain, DENIES: Palpitations, Syncope, Dyspnea on Exertion, PND, Lower Extremity Edema, Orthopnea, Claudication Gastrointestinal: DENIES: Abdominal pain, Black stools, Bloody stools, Constipation, Diarrhea, Nausea, Vomiting, Difficulty Swallowing, Anorexia Genitourinary: DENIES: Sexual dysfunction, Urinary frequency, Urinary incontinence, Urgency, Hematuria, Dysuria, Nocturia, Penile Discharge, Testicular Pain, Testicular Swelling Musculoskeletal: COMPLAINS OF: Joint pain, DENIES: Muscle aches, Stiffness, Joint Swelling, Back pain, Neck pain Integumentary: DENIES: Abnormal pigmentation, Nail changes, Pruritus, Rash Hematologic/lymphatic: DENIES: Bruising, Lymphadenopathy Immunologic/allergic: DENIES: Eczema, Urticaria Neurologic: DENIES: Abnormal gait, Headache, Localized weakness, Paresthesias, Seizures, Speech Problems, Tremor, Poor Balance Psychiatric: DENIES: Anxiety, Confusion, Mood changes, Depression, Hallucinations, Agitation, Suicidal Ideation, Homicidal Ideation, Delusions Past Family Social History Allergies: Coded Allergies: Penicillin (Verified Allergy, Unknown, Hives, 12/06/16) Pt reports hives but tolerated 2 doses of Zosyn IV on 12/05/16. Past Medical History Hypertension Past Surgical History Patient states he's had 5 spine surgeries and has metal hardware in place. VATS 11/2016 Reported Medications Reported Meds & Active Scripts Active Reported Hydrocodone-Acetaminophen 10-325 mg Tab 1 Tab PO QID PRN Active Ordered Medications Current Medications Medications (Trade) Dose Ordered Sig/Jason Route Start Time Stop Time Status Last Admin (Vasotec Inj) 1.25 mg Q8H PRN IV 11/25/16 20:45 12/01/16 11:28 (Zofran Inj) 4 mg Q6H PRN IV 11/25/16 20:45 11/28/16 15:59 (Robaxin) 750 mg TID PRN PO 11/25/16 22:45 11/28/16 19:33 (Pill Splitter) 1 ea UNSCH PRN OTHER 11/25/16 22:45 (Habitrol 14 Mg Patch.24 Hr) 1 patch DAILY TD 11/26/16 10:00 12/06/16 08:49 Miscellaneous Information 1 HS TD 11/26/16 21:00 12/06/16 20:45 (Milk Of Magnesia Liq) 30 ml HS PO 11/27/16 21:00 12/05/16 19:45 (Neurontin) 300 mg TID PO 11/29/16 13:00 12/06/16 17:17 (Romazicon Inj) 0.2 mg Q1M PRN IV PUSH 11/30/16 15:15 (Prinivil) 10 mg DAILY PO 11/30/16 16:30 12/06/16 08:49 (Catapres) 0.1 mg Q6H PRN PO 12/01/16 11:00 12/05/16 21:18 (Roseanne-Colace) 1 tab BID PO 12/02/16 09:00 12/06/16 08:49 (Ambien) 5 mg HS PRN PO 12/03/16 12:00 12/05/16 21:18 (NS Flush) 2 ml UNSCH PRN IVF 12/05/16 12:15 (NS Flush) 2 ml BID IVF 12/05/16 12:15 12/06/16 08:49 (Protonix) 40 mg Q24H PO 12/05/16 14:00 12/06/16 13:42 (Colace) 100 mg BID PO 12/05/16 21:00 12/06/16 08:49 (Narcan Inj) 0.4 mg UNSCH PRN IV 12/05/16 12:15 (Lovenox Inj) 40 mg Q24H SQ 12/06/16 11:00 12/06/16 10:07 (Tylenol) 1,000 mg Q8HR PO 12/06/16 14:00 12/06/16 20:45 Oxycodone/ Acetaminophen 1 tab 1 tab Q4H PRN PO 12/06/16 11:45 12/06/16 20:45 Pharmacy Profile Note 0 ml @ 0 mls/hr UNSCH OTHER 12/06/16 14:45 (Vancomycin Inj/ NS 250 ml Inj) 262.5 ml @ 250 mls/hr Q8H IV 12/07/16 00:00 (Morphine Inj) 2 mg Q2H PRN IV PUSH 12/06/16 16:00 12/06/16 16:00 (Levaquin) 500 mg DAILY PO 12/06/16 17:00 12/06/16 17:17 Family History reviewed and NC to current ID problem. Social History reviewed. Denies alcohol, smoking or IVDA. 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 Physical Exam Vital Signs Vital Signs Date Time Temp Pulse Resp B/P Pulse Ox O2 Delivery O2 Flow Rate FiO2 12/06/16 14:42 22 12/06/16 12:00 105 12/06/16 12:00 98.1 105 21 147/67 97 12/06/16 10:00 108 12/06/16 09:53 99 21 12/06/16 08:00 102 12/06/16 08:00 98.1 102 20 155/69 100 Manual Cuff/Palpation 12/06/16 07:00 96 Room Air 12/06/16 06:00 103 12/06/16 05:09 18 12/06/16 04:00 99.5 99 21 125/84 99 12/06/16 04:00 103 12/06/16 03:47 24 12/06/16 02:00 99 12/06/16 00:00 99.7 100 19 129/58 95 12/06/16 00:00 100 12/05/16 22:00 97 12/05/16 20:00 73 12/05/16 20:00 98.3 99 18 161/77 99 12/05/16 19:46 18 12/05/16 19:43 97 Nasal Cannula 3.00 12/05/16 19:00 99 Nasal Cannula 3.00 12/05/16 18:21 96 Nasal Cannula 3.00 12/05/16 16:00 98.4 89 23 131/69 100 Physical Exam GENERAL: This is a well-nourished, well-developed patient, in no apparent distress. SKIN: Multiple bruising and ecchymosis noted. HEAD: Atraumatic. Normocephalic. No temporal or scalp tenderness. EYES: Pupils equal round and reactive. Extraocular motions intact. No scleral icterus. No injection or drainage. ENT: Nose without bleeding, purulent drainage or septal hematoma. Throat without erythema, tonsillar hypertrophy or exudate. Uvula midline. Airway patent. NECK: Trachea midline. Supple, nontender, no meningeal signs. CARDIOVASCULAR: HS audible no murmur appreciated. RESPIRATORY: Clear to auscultation. Breath sounds equal bilaterally. 2 Chest tubes with serosanguinous discharge noted. GASTROINTESTINAL: Abdomen soft, non-tender, nondistended. MUSCULOSKELETAL: Extremities without clubbing, cyanosis, or edema. No joint tenderness, effusion, or edema noted. No calf tenderness. Negative Homans sign bilaterally. NEUROLOGICAL: Awake and alert. Grossly non focal Psych: cooperative IV line sites with no e/o infection/. Laboratory Laboratory Tests Test 12/06/16 04:24 White Blood Count 18.6 Red Blood Count 2.33 Hemoglobin 8.3 Hematocrit 24.9 Mean Corpuscular Volume 106.7 Mean Corpuscular Hemoglobin 35.7 Mean Corpuscular Hemoglobin 33.4 Concent Red Cell Distribution Width 13.3 Platelet Count 265 Mean Platelet Volume 8.1 Neutrophils (%) (Auto) 88.2 Lymphocytes (%) (Auto) 4.9 Monocytes (%) (Auto) 6.5 Eosinophils (%) (Auto) 0.1 Basophils (%) (Auto) 0.3 Neutrophils # (Auto) 16.4 Lymphocytes # (Auto) 0.9 Monocytes # (Auto) 1.2 Eosinophils # (Auto) 0.0 Basophils # (Auto) 0.1 CBC Comment AUTO DIFF Differential Total Cells 100 Counted Neutrophils % (Manual) 85 Band Neutrophils % 5 Lymphocytes % 4 Monocytes % 5 Neutrophils # (Manual) 16.9 Metamyelocytes 1 Differential Comment FINAL DIFF MANUAL Platelet Estimate NORMAL Platelet Morphology Comment NORMAL Sodium Level 135 Potassium Level 4.1 Chloride Level 102 Carbon Dioxide Level 24.0 Anion Gap 9 Blood Urea Nitrogen 12 Creatinine 0.46 Estimat Glomerular Filtration 185 Rate Random Glucose 120 Calcium Level 7.5 Date/Time Procedure Status Source Growth 12/05/16 10:40 Gram Stain - Final Resulted Wound Chest 12/05/16 10:40 Wound Culture - Preliminary Resulted Wound Chest NO GROWTH IN 24 HOURS. 12/05/16 10:40 Fungal Smear - Final Resulted Wound Chest NO FUNGAL ELEMENTS SEEN. 12/05/16 10:40 Fungal Culture Resulted Wound Chest Pending 12/05/16 10:40 Acid Fast Stain Received Wound Chest Pending 12/05/16 10:40 Mycobacterial Culture Received Wound Chest Pending Result Diagram: 12/06/16 0424 12/06/16 0424 Imaging Last Impressions Chest X-Ray 12/06/16 0600 Signed Impressions: Service Date/Time: Tuesday, December 06, 2016 05:02 - CONCLUSION: 1. Postsurgical changes as above. There is no evidence of pneumothorax. There has been no significant change when compared to the prior exam. Mario Owen MD Chest CT 12/03/16 0000 Signed Impressions: Service Date/Time: Saturday, December 03, 2016 21:59 - CONCLUSION: 1. Left chest tube is present with the tip of the chest tube mostly above loculated air and fluid in the left pleural space. Cannot exclude a left-sided empyema. Patchy bronchopneumonia also suspected, right greater than left. Zachery Aquino MD Pelvis X-Ray 11/30/16 0000 Signed Impressions: Service Date/Time: Wednesday, November 30, 2016 10:32 - CONCLUSION: 1. Bilateral pubic rami fractures. 2. Apparent nondisplaced fracture through the left sacrum. Jovan Chu MD Chest Tube Insertion 11/30/16 0000 Signed Impressions: Service Date/Time: Wednesday, November 30, 2016 09:48 - CONCLUSION: Uncomplicated chest tube placement as above. Drake Corona MD Head CT 11/25/161950 Signed Impressions: Service Date/Time: November 20:06 - CONCLUSION: Motion degraded study without convincing evidence of acute intracranial hemorrhage. Followup noncontrasted head CT suggested in 24 hours. Neel Moyer MD Cervical Spine CT 11/25/161950 Signed Impressions: Service Date/Time: November 20:06 - CONCLUSION: 1. No fracture or subluxation of the cervical spine. 2. Degenerative changes with a chronic appearing disc osteophyte complex and uncovertebral/facet osteoarthritis causing severe spinal and bilateral foraminal stenosis at C6-C7. 3. Small, age-indeterminate posterior disc protrusion at C7/T1 causing mild spinal stenosis. Neel Moyer MD Abdomen/Pelvis CT 11/25/161950 Signed Impressions: Service Date/Time: November 20:10 - CONCLUSION: 1. No evidence of acute visceral or injury. 2. Fractures of the left body and ala of the sacrum with mildly displaced fracturing in the region of the left S2/S3 foramen. 3. Bilateral superior and inferior pubic rami fractures and a nondisplaced fracture of the left acetabulum. 4. Small presacral and left iliopsoas hematomas. I don't see active bleeding. Neel Moyer MD Thoracic Spine CT 11/25/16 0000 Signed Impressions: Service Date/Time: November 20:10 - CONCLUSION: Left T12 transverse process and facet fracture, minimally displaced. Multiple left posterior rib fractures and placed refer to the chest CT report. Thoracic vertebral bodies are intact. No subluxations. Neel Moyer MD Lumbar Spine CT 11/25/16 0000 Signed Impressions: Service Date/Time: November 20:10 - CONCLUSION: 1. Minimally to mildly displaced left transverse process fractures of L1-L4. 2. Multilevel degenerative changes as above. Large right paracentral disc fragment at L4/L5, probably nonacute. Neel Moyer MD Assessment and Plan Assessment and Plan Hemothorax with organized hematoma. Less likely to be Empyema but will follow cultures to rule out. Multiple left side rub fractures s/p VATS. Sacral fracture with non displaced acetabular fracture. HTN h/o multiple spine surgeries with hardware in place Recs DC Zosyn IV Start Levaquin oral Continue Vanco IV for now Follow cultures Follow clinically. d/w pt, daughter in room dBryantw Jenelle Rider MD Dec 06, 2016 15:39
[2016-12-06] MEDS ORDERED: VANCOMYCIN 1,500 MG/NS 500 ML IV ONE ×2 (16:00)
[2016-12-06] MEDS ORDERED: MORPHINE SULFATE 4 MG/ML INJ IV PUSH PRN (16:00)
--- NOTE | 2016-12-06 17:06 | HHI.CCPN ---
Subjective Brief History This is a 61 year old gentleman was brought in as a trauma alert by air 1 helicopter from the scene. Patient was intoxicated and was up on a ladder about 20 feet when somehow he lost his footing and fell on his back on the ground. Per paramedics: No loss of consciousness. Patient was hemodynamically stable the entire transportation and reported GCS was 15. However patient was complaining of severe lower back pain and left-sided chest wall pain. Patient has history of chronic back pain and neck injury and surgery. INJURIES: Multiple LEFT rib fxs LEFT PTX Tiny LEFT hempPTX (w/ CT LEFT lower lobe contusion (spinal stenosis C6-C7) (Disk protrusion C7-T1- spinal stenosis) LEFT S2-S3 foramen fx (mild displaced) BILAT superior and inferior pubic rami fx (non-op) LEFT sacral Fx (non-op) LEFT acetabulum fx (non-displaced) (non-op) Procedures: CT with IR - he pulled it out once back to floor. 12/05: LEFT VATs with thoracotomy; LEFT decortication and empyema removal. 24 Hour Review/Hospital Course 12/06/2016: PTD: 9 POD 1 from left VAT's with thoracotomy and left decortication with empyema removal. Patient is doing well, with marginal pain to left side where his chest tubes are located. Vital signs are stable, therefore he can transfer to the [facility] floor when a bed is available. Objective Vital Signs Date Time Temp Pulse Resp B/P Pulse Ox O2 Delivery O2 Flow Rate FiO2 12/06/16 16:10 22 12/06/16 12:00 105 12/06/16 12:00 98.1 147/67 97 12/06/16 09:53 21 12/06/16 07:00 Room Air 12/05/16 19:43 3.00 Intake and Output 12/05/16 12/05/16 12/06/16 08:00 16:00 00:00 Intake Total 0 ml 100 ml 1320 ml Output Total 2100 ml 510 ml 800 ml Balance -2100 ml -410 ml 520 ml Result Diagram: 12/06/16 0424 12/06/16 0424 Imaging Last 24 hours Impressions Chest X-Ray 12/06/16 0600 Signed Impressions: Service Date/Time: Tuesday, December 06, 2016 05:02 - CONCLUSION: 1. Postsurgical changes as above. There is no evidence of pneumothorax. There has been no significant change when compared to the prior exam. Mario Owen MD Objective Remarks GENERAL: This is a 61-year-old male sitting up in bed in no distress. SKIN: Warm and dry. HEAD: Atraumatic. Normocephalic. EYES: PERRLA ENT: No nasal bleeding or discharge. Mucous membranes pink and moist. NECK: Trachea midline. No JVD. CARDIOVASCULAR: Regular rate and rhythm. RESPIRATORY: No accessory muscle use. Lungs are clear to auscultation. Breath sounds equal bilaterally. No distress or dyspnea. Left chest tubes 2: each to their own Pleur-evac drainage system to suction. GASTROINTESTINAL: BS + x 4 quads. Abdomen soft, non-tender, nondistended. MUSCULOSKELETAL: Extremities without cyanosis, or edema. + peripheral pulses x 4 extremities. Warm with good capillary refill and sensation. MAEW. NEUROLOGICAL: Awake and alert. Normal speech and pattern. Urinary Catheter Assessment Urinary Catheter: Yes Assessment to: Remove Vascular Central Line Catheter Vascular Central Line Catheter: No Assessment and Plan Assessment: (1) Traumatic pneumothorax ICD Code: S27.0XXA Status: Acute (2) Fall from ladder ICD Code: W11.XXXA Status: Acute (3) Lung contusion ICD Code: S27.329A Status: Acute (4) Multiple rib fractures ICD Code: S22.49XA Status: Acute (5) HTN (hypertension) ICD Code: I10 Status: Acute (6) EtOH dependence ICD Code: F10.20 Status: Acute (7) Pelvic fracture ICD Code: S32.9XXA Status: Acute Plan PORT LIONS: This is a 61-year-old male who sustained a fall from approximately 20 feet off a ladder. He landed on his back. No LOC. GCS equals 14. + EtOH. INJURIES: Multiple LEFT rib fxs LEFT PTX Tiny LEFT hempPTX (w/ CT LEFT lower lobe contusion (spinal stenosis C6-C7) (Disk protrusion C7-T1- spinal stenosis) LEFT S2-S3 foramen fx (mild displaced) BILAT superior and inferior pubic rami fx (non-op) LEFT sacral Fx (non-op) LEFT acetabulum fx (non-displaced) (non-op) Procedures: CT with IR - he pulled it out once back to floor. 12/05: LEFT VATs with thoracotomy; LEFT decortication and empyema removal Consults: Hospitalist, orthopedics, infectious disease. Diet: Regular diet. Tolerating po diet. Encourage good po intake with each meal. (May have BEER with meal) Pulmonary: Encourage good pulmonary toileting. IS and acapella at bedside and pt encouraged to use. Rationale for use explained to patient, and verbalized understanding. EZ pap and nebs ordered. PAIN Management: Percocetpo. Morphine IV. Neurontin po. Robaxin po. Activity: OOB. PT and OT ordered. (WBAT RLE; TTWB LLE) GI prophylaxis: Pepcid po. Bowel regimen: Roseanne-colace and MOM. BM 2 days ago. Continue to monitor. DVT prophylaxis: Mechanical VTE with SCDs. Chemical management with Lovenox 30 BID DC Planning: Case management consulted for assistance with final discharge disposition. Emotional support provided to patient and family at bedside and plan of care discussed. Discussed with RN at bedside Patient is hemodynamically stable in the ICU and can be transferred to the [facility] floor when a bed becomes available . Problem Qualifiers (1) Traumatic pneumothorax: Qualified Code: S27.0XXA - Traumatic pneumothorax, initial encounter (2) Fall from ladder: Qualified Code: W11.XXXA - Fall from ladder, initial encounter (3) Lung contusion: Qualified Code: S27.321A - Contusion of left lung, initial encounter (4) Multiple rib fractures: Qualified Code: S22.42XA - Closed fracture of multiple ribs of left side, initial encounter (5) Pelvic fracture: Qualified Code: S32.810A - Multiple closed fractures of pelvis with stable disruption of pelvic northway, initial encounter Shoshana Donovan Dec 06, 2016 17:06
[2016-12-06] MEDS: LEVOFLOXACIN 500 MG TAB PO SCH (17:17)
[2016-12-06] MEDS: REMOVE OLD NICODERM (NICOTINE) PATCH TD SCH (20:45)
[2016-12-06] MEDS: MAGNESIUM HYDROXIDE SUSP 30 ML CUP PO SCH ×2 (20:45→20:51)
[2016-12-06] MEDS: VANCOMYCIN INJ 1,250 MG in SODIUM CHLOR 0.9% 250 ML INJ 250 ML IV SCH (23:53)
[2016-12-07] VITALS (11 sets, daily range): BP systolic 133–202; BP diastolic 63–85; PULSE 72–118; RESP 18–24; TEMP 97.6–101.2; O2SAT 93–100
[2016-12-07] MEDS: MELATONIN 5 MG TAB PO PRN (00:19)
[2016-12-07] MEDS: OLANZapine ODT 5 MG TAB PO PRN (01:17)
[2016-12-07] MEDS: oxyCODONE/ACETAMINOPHEN 10 MG/325 MG TAB PO PRN ×4 (04:00→21:36)
--- NOTE | 2016-12-07 05:24 | RADRPT ---
EXAM DATE/TIME: 12/07/2016 04:00 [facility] COMPARISON: CHEST SINGLE AP, December 06, 2016, 5:02. INDICATIONS : Short of breath. MEDICAL HISTORY : Hemithorax. Pneumothorax. SURGICAL HISTORY : Chest tube. ENCOUNTER: Subsequent ACUITY: 1 week PAIN SCORE: 0/10 LOCATION: Bilateral chest FINDINGS: The cardiac silhouette is enlarged in transverse diameter. A left chest tube is in place. There is no evidence of pneumothorax. There is patchy alveolar disease bilaterally compatible with edema or pneu monia. CONCLUSION: 1. Patchy alveolar disease characteristic of edema or pneumonia. There has been no significant birch e when compared to the prior exam. 2. There is no evidence of pneumothorax. Mario Owen MD on December 07, 2016 at 5:22 Board Certified Radiologist. This report was verified electronically.
[2016-12-07] MEDS: ACETAMINOPHEN 500 MG CPLT PO SCH ×3 (06:00→18:38)
[2016-12-07 06:31] LABS: ALT (GPT) 46 U/L (12-78); ANION GAP 8 MEQ/L (5-15); AST (GOT) 107 U/L (15-37); BICARBONATE 22.9 MEQ/L (21.0-32.0); BLOOD UREA NITROGEN 11 MG/DL (7-18); CHLORIDE 105 MEQ/L (98-107); GLOMERULAR FILTRATION RATE 224 ML/MIN (>89); POTASSIUM 3.9 MEQ/L (3.5-5.1); SODIUM (NA) 136 MEQ/L (136-145)
[2016-12-07 06:33] LABS: ALKALINE PHOSPHATASE 96 U/L (45-117); TOTAL BILIRUBIN ADULT 0.7 MG/DL (0.2-1.0)
[2016-12-07] MEDS: LISINOPRIL 10 MG TAB PO SCH (08:28)
[2016-12-07] MEDS: GABAPENTIN 300 MG CAP PO SCH ×3 (08:28→18:37)
[2016-12-07] MEDS: LEVOFLOXACIN 500 MG TAB PO SCH (08:28)
[2016-12-07] MEDS: DOCUSATE SODIUM 100 MG CAP PO SCH ×2 (08:28→21:00)
[2016-12-07] MEDS: NICOTINE 14 MG/24 HR PATCH TD SCH (08:29)
[2016-12-07] MEDS: VANCOMYCIN INJ 1,250 MG in SODIUM CHLOR 0.9% 250 ML INJ 250 ML IV SCH ×2 (08:33→16:39)
[2016-12-07] MEDS: DOCUSATE SODIUM 50 MG/SENNA 8.6 MG TAB PO SCH ×2 (08:35→21:00)
[2016-12-07 08:49] LABS: AUTOMATED NEUTROPHIL # 9.5 TH/MM3 (1.8-7.7); BASOPHIL % 0.3 % (0.0-2.0); EOSINOPHIL # 0.3 TH/MM3 (0-0.4); EOSINOPHIL % 2.1 % (0.0-4.0); HEMATOCRIT 22.4 % (39.0-51.0); LYMPH % 11.1 % (9.0-44.0); LYMPHOCYTE # 1.3 TH/MM3 (1.0-4.8); MEAN CORPUSCULAR HEMOGLOBIN 36.2 PG (27.0-34.0); MEAN CORPUSCULAR HGB CONC 34.8 % (32.0-36.0); MONO % 7.8 % (0.0-8.0); NEUT % 78.7 % (16.0-70.0); PLATELET COUNT 222 TH/MM3 (150-450); RED BLOOD COUNT 2.15 MIL/MM3 (4.50-5.90); RED CELL DISTRIBUTION WIDTH 12.9 % (11.6-17.2); WHITE BLOOD COUNT 12.1 TH/MM3 (4.0-11.0)
[2016-12-07 08:55] LABS: HEMO FLAGS AUTO DIFF
[2016-12-07] MEDS ORDERED: LACTULOSE SYRUP 20 GM/30 ML CUP PO ONE (09:00)
[2016-12-07 09:33] LABS: BANDS 1 % (0-6); EOSINOPHILS 4 % (0-4); NEUTROPHIL # MANUAL DIFF 8.6 TH/MM3 (1.8-7.7); PLATELET ESTIMATE SMEAR NORMAL (NORMAL); PLATELET MORPHOLOGY NORMAL (NORMAL); POLYS (SEG NEUTROPHILS) 70 % (16-70); SCAN/DIFF FINAL DIFF MANUAL; WBC DIFF SAMPLE 100
--- NOTE | 2016-12-07 09:36 | HHI.PR ---
Subjective Remarks Patient seen and examined Afebrile Complains of rib cage pain as well as left chest pain Objective Vitals Vital Signs Date Time Temp Pulse Resp B/P Pulse Ox O2 Delivery O2 Flow Rate FiO2 12/07/16 08:45 97.8 118 18 139/64 98 12/07/16 06:00 94 12/07/16 04:00 100 12/07/16 04:00 97.6 100 18 177/77 96 12/07/16 02:00 72 12/07/16 00:00 98.3 98 18 169/72 93 12/07/16 00:00 98 12/06/16 22:00 92 12/06/16 20:00 96 12/06/16 20:00 93 Room Air 12/06/16 20:00 98.1 96 24 133/63 93 12/06/16 19:45 94 21 12/06/16 18:00 98 12/06/16 16:10 22 12/06/16 16:00 99 12/06/16 16:00 98.0 99 23 166/70 96 12/06/16 14:42 22 12/06/16 14:00 103 12/06/16 12:00 105 12/06/16 12:00 98.1 105 21 147/67 97 12/06/16 10:00 108 12/06/16 09:53 99 21 I/O 12/06/16 12/06/16 12/06/16 12/07/16 12/07/16 12/07/16 07:00 15:00 23:00 07:00 15:00 23:00 Intake Total 1530 ml 1422 ml 258 ml 949 ml Output Total 650 ml 370 ml 320 ml 1450 ml Balance 880 ml 1052 ml -62 ml -501 ml Intake Oral 250 ml 720 ml 500 ml IV Total 1280 ml 702 ml 258 ml 449 ml Output Urine Total 650 ml 300 ml 250 ml 1400 ml Chest Tube Drainage Total 0 ml 70 ml 70 ml 50 ml # Bowel Movements 0 0 0 0 Result Diagram: 12/07/16 0833 12/07/16 0519 Objective Remarks GENERAL: NAD SKIN: Warm and dry. HEAD: Normocephalic. EYES: No scleral icterus. No injection or drainage. NECK: Supple, trachea midline. No JVD or lymphadenopathy. CARDIOVASCULAR: Regular rate and rhythm without murmurs, gallops, or rubs. RESPIRATORY: Breath sounds equal bilaterally. No accessory muscle use. Left- sided chest tube in place GASTROINTESTINAL: Abdomen soft, non-tender, nondistended. MUSCULOSKELETAL: No cyanosis, or edema. BACK: Nontender without obvious deformity. No CVA tenderness. A/P Problem List: (1) Multiple rib fractures ICD Code: S22.49XA Status: Acute (2) Lung contusion ICD Code: S27.329A Status: Acute (3) Fall from ladder ICD Code: W11.XXXA Status: Acute (4) Traumatic pneumothorax ICD Code: S27.0XXA Status: Acute (5) Pelvic fracture ICD Code: S32.9XXA Status: Acute (6) HTN (hypertension) ICD Code: I10 Status: Acute (7) EtOH dependence ICD Code: F10.20 Status: Acute Assessment and Plan 61-year-old male with EtOH abuse, dependence - Continue with CIWA protocol Pneumonia - - Continue Levaquin - Nebulizer treatments scheduled. - Monitor respiratory status. Macrocytic anemia - secondary to EtOH dependence - Thiamine, folate Hyponatremia - Resolved Status post fall, multiple rib fractures, pubic rib fractures, pelvic fractures with sacral fracture nondisplaced acetabular fracture - Orthopedic following patient. Weightbearing status was ordered. Recommended toe-touch weightbearing on the left leg. - Pain management. Patient with chronic pain even prior to this hospitalization. Will add Morphine ER. Left upper lobe loculated effusion/Hemothorax - continue chest tube management per primary team. - 2 L nasal cannula Left Lung empyema:s/p VATS, thoracotomy and decortication with evacuation of left empyema 12/05/16.Currently on Diflucan IV, Zosyn and Vancomycin.Management per CTS. monitor cultures. Percocet 10mg every 4H breakthrough Tobacco use -nicotine patch HTN :Continue lisinopril. clonidine as needed and Vasotec when necessary. Continue to monitor BP trend DVT prop B-SCDs GI famotidine Problem Qualifiers (1) Multiple rib fractures: Qualified Code: S22.42XA - Closed fracture of multiple ribs of left side, initial encounter (2) Lung contusion: Qualified Code: S27.321A - Contusion of left lung, initial encounter (3) Fall from ladder: Qualified Code: W11.XXXA - Fall from ladder, initial encounter (4) Traumatic pneumothorax: Qualified Code: S27.0XXA - Traumatic pneumothorax, initial encounter (5) Pelvic fracture: Qualified Code: S32.810A - Multiple closed fractures of pelvis with stable disruption of pelvic benton, initial encounter Melecio Banks MD Dec 07, 2016 09:36
[2016-12-07] MEDS: ENOXAPARIN SODIUM 40 MG/0.4 ML SYRINGE SQ SCH (10:23)
[2016-12-07] MEDS: MORPHINE SULFATE 4 MG/ML INJ IV PUSH PRN ×4 (10:23→23:00)
[2016-12-07] MEDS: PANTOPRAZOLE SOD 40 MG DELAYED RELEASE TAB PO SCH (12:48)
[2016-12-07] MEDS: metroNIDAZOLE 500 MG TAB PO SCH ×2 (12:48→21:36)
[2016-12-07] MEDS ORDERED: PHARMACY ORDERED LAB XX ONE (15:45)
--- NOTE | 2016-12-07 16:34 | HHI.CCPN ---
Subjective Brief History This is a 61 year old gentleman was brought in as a trauma alert by air 1 helicopter from the scene. Patient was intoxicated and was up on a ladder about 20 feet when somehow he lost his footing and fell on his back on the ground. Per paramedics: No loss of consciousness. Patient was hemodynamically stable the entire transportation and reported GCS was 15. However patient was complaining of severe lower back pain and left-sided chest wall pain. Patient has history of chronic back pain and neck injury and surgery. INJURIES: Multiple LEFT rib fxs LEFT PTX Tiny LEFT hempPTX (w/ CT LEFT lower lobe contusion (spinal stenosis C6-C7) (Disk protrusion C7-T1- spinal stenosis) LEFT S2-S3 foramen fx (mild displaced) BILAT superior and inferior pubic rami fx (non-op) LEFT sacral Fx (non-op) LEFT acetabulum fx (non-displaced) (non-op) Procedures: CT with IR - he pulled it out once back to floor. 12/05: LEFT VATs with thoracotomy; LEFT decortication and empyema removal. 24 Hour Review/Hospital Course 12/06/2016: PTD: 9 POD 1 from left VAT's with thoracotomy and left decortication with empyema removal. Patient is doing well, with marginal pain to left side where his chest tubes are located. Vital signs are stable, therefore he can transfer to the [facility] floor when a bed is available. 12/07/2016 Patient doing very well at this time Drainage from the chest tubes has decreased and is serosanguineous now No purulent discharge noted Incisions clean and dry Patient has been in the ICU is a border for there are no floor beds available Plan Out of bed Chest tubes to waterseal Likely we will remove the basal chest tube tomorrow and leave the apical tube in position Continue IV antibiotics ID help greatly appreciated The exam, history, and the medical decision-making described in the above note were completed with the assistance of the mid-level provider. I reviewed and agree with the findings presented. I attest that I had a [id number] encounter with the patient on the same day, and personally performed and documented my assessment and findings in the medical record. Objective Vital Signs Date Time Temp Pulse Resp B/P Pulse Ox O2 Delivery O2 Flow Rate FiO2 12/07/16 16:27 97.9 97 19 154/69 100 12/07/16 09:00 Nasal Cannula 2.00 12/06/16 19:45 21 Intake and Output 12/06/16 12/06/16 12/07/16 08:00 16:00 00:00 Intake Total 1530 ml 1422 ml 258 ml Output Total 650 ml 370 ml 320 ml Balance 880 ml 1052 ml -62 ml Result Diagram: 12/07/16 0833 12/07/16 0519 Imaging Last 24 hours Impressions Chest X-Ray 12/07/16 0600 Signed Impressions: Service Date/Time: Wednesday, December 07, 2016 04:00 - CONCLUSION: 1. Patchy alveolar disease characteristic of edema or pneumonia. There has been no significant change when compared to the prior exam. 2. There is no evidence of pneumothorax. Mario Owen MD Assessment and Plan Assessment: (1) Traumatic pneumothorax ICD Code: S27.0XXA Status: Acute (2) Fall from ladder ICD Code: W11.XXXA Status: Acute (3) Lung contusion ICD Code: S27.329A Status: Acute (4) Multiple rib fractures ICD Code: S22.49XA Status: Acute (5) HTN (hypertension) ICD Code: I10 Status: Acute (6) EtOH dependence ICD Code: F10.20 Status: Acute (7) Pelvic fracture ICD Code: S32.9XXA Status: Acute Plan PILOT STATION: This is a 61-year-old male who sustained a fall from approximately 20 feet off a ladder. He landed on his back. No LOC. GCS equals 14. + EtOH. INJURIES: Multiple LEFT rib fxs LEFT PTX Tiny LEFT hempPTX (w/ CT LEFT lower lobe contusion (spinal stenosis C6-C7) (Disk protrusion C7-T1- spinal stenosis) LEFT S2-S3 foramen fx (mild displaced) BILAT superior and inferior pubic rami fx (non-op) LEFT sacral Fx (non-op) LEFT acetabulum fx (non-displaced) (non-op) Procedures: CT with IR - he pulled it out once back to floor. 12/05: LEFT VATs with thoracotomy; LEFT decortication and empyema removal Consults: Hospitalist, orthopedics, infectious disease. Diet: Regular diet. Tolerating po diet. Encourage good po intake with each meal. (May have BEER with meal) Pulmonary: Encourage good pulmonary toileting. IS and acapella at bedside and pt encouraged to use. Rationale for use explained to patient, and verbalized understanding. EZ pap and nebs ordered. PAIN Management: Percocetpo. Morphine IV. Neurontin po. Robaxin po. Activity: OOB. PT and OT ordered. (WBAT RLE; TTWB LLE) GI prophylaxis: Pepcid po. Bowel regimen: Roseanne-colace and MOM. BM 2 days ago. Continue to monitor. DVT prophylaxis: Mechanical VTE with SCDs. Chemical management with Lovenox 30 BID DC Planning: Case management consulted for assistance with final discharge disposition. Emotional support provided to patient and family at bedside and plan of care discussed. Discussed with RN at bedside Patient is hemodynamically stable in the ICU and [facility] bed becomes available . Problem Qualifiers (1) Traumatic pneumothorax: Qualified Code: S27.0XXA - Traumatic pneumothorax, initial encounter (2) Fall from ladder: Qualified Code: W11.XXXA - Fall from ladder, initial encounter (3) Lung contusion: Qualified Code: S27.321A - Contusion of left lung, initial encounter (4) Multiple rib fractures: Qualified Code: S22.42XA - Closed fracture of multiple ribs of left side, initial encounter (5) Pelvic fracture: Qualified Code: S32.810A - Multiple closed fractures of pelvis with stable disruption of pelvic [place], initial encounter Daina Faustin MD Dec 07, 2016 16:34
--- NOTE | 2016-12-07 17:08 | HHI.IDPN ---
Subjective Subjective Remarks is a 61 y/o CM who was admitted as a trauma alert after he fell off a ladder ~ [place]. He sustained multiple left-sided rib fractures with hemopneumothorax. He underwent placement of Chest tube and eventually this was not draining much. Concern for empyema lead to a left side VATS and placement of new CTs x 2. Cultures from VATS are pending at this time and no growth so far. He also was seen by ortho for multiple pelvic fractures including sacral fracture and nondisplaced acetabular fracture. Throughout his ICU stay patient has had fever on 1 day of 101 on which lead to VATS. Patient has been on Zosyn IV and Vanco IV and ID is consulted to help evaluate for possible empyema and antibiotic management. Overnight events are reviewed. No fever No rash No diarrhea. Antibiotics Levaquin Flagyl Vanco IV Lines Line sites with no evidence of infection. Past Medical History Reviewed. Allergies: Coded Allergies: Penicillin (Verified Allergy, Unknown, Hives, 12/06/16) Pt reports hives but tolerated 2 doses of Zosyn IV on 12/05/16. Objective . Vital Signs Date Time Temp Pulse Resp B/P Pulse Ox O2 Delivery O2 Flow Rate FiO2 12/07/16 16:27 97.9 97 19 154/69 100 12/07/16 16:00 113 12/07/16 12:00 98.0 98 20 146/67 99 12/07/16 11:31 16 12/07/16 09:50 20 12/07/16 09:00 99 Nasal Cannula 2.00 12/07/16 08:45 97.8 118 18 139/64 98 12/07/16 07:00 95 Room Air 12/07/16 06:00 94 12/07/16 04:00 100 12/07/16 04:00 97.6 100 18 177/77 96 12/07/16 02:00 72 12/07/16 00:00 98.3 98 18 169/72 93 12/07/16 00:00 98 12/06/16 22:00 92 12/06/16 20:00 96 12/06/16 20:00 93 Room Air 12/06/16 20:00 98.1 96 24 133/63 93 12/06/16 19:45 94 21 12/06/16 18:00 98 12/06/16 12/06/16 12/07/16 15:00 23:00 07:00 Intake Total 1422 ml 258 ml 949 ml Output Total 370 ml 320 ml 1450 ml Balance 1052 ml -62 ml -501 ml Intake Oral 720 ml 500 ml IV Total 702 ml 258 ml 449 ml Output Urine Total 300 ml 250 ml 1400 ml Chest Tube Drainage Total 70 ml 70 ml 50 ml # Bowel Movements 0 0 0 . Laboratory Tests Test 12/06/16 12/07/16 04:24 08:33 White Blood Count 18.6 TH/MM3 12.1 TH/MM3 Red Blood Count 2.33 MIL/MM3 2.15 MIL/MM3 Hemoglobin 8.3 GM/DL 7.8 GM/DL Hematocrit 24.9 % 22.4 % Mean Corpuscular Volume 106.7 FL 104.0 FL Mean Corpuscular Hemoglobin 35.7 PG 36.2 PG Mean Corpuscular Hemoglobin 33.4 % 34.8 % Concent Red Cell Distribution Width 13.3 % 12.9 % Platelet Count 265 TH/MM3 222 TH/MM3 Mean Platelet Volume 8.1 FL 8.2 FL Neutrophils (%) (Auto) 88.2 % 78.7 % Lymphocytes (%) (Auto) 4.9 % 11.1 % Monocytes (%) (Auto) 6.5 % 7.8 % Eosinophils (%) (Auto) 0.1 % 2.1 % Basophils (%) (Auto) 0.3 % 0.3 % Neutrophils # (Auto) 16.4 TH/MM3 9.5 TH/MM3 Lymphocytes # (Auto) 0.9 TH/MM3 1.3 TH/MM3 Monocytes # (Auto) 1.2 TH/MM3 0.9 TH/MM3 Eosinophils # (Auto) 0.0 TH/MM3 0.3 TH/MM3 Basophils # (Auto) 0.1 TH/MM3 0.0 TH/MM3 CBC Comment AUTO DIFF AUTO DIFF Differential Total Cells 100 100 Counted Neutrophils % (Manual) 85 % 70 % Band Neutrophils % 5 % 1 % Lymphocytes % 4 % 15 % Monocytes % 5 % 10 % Neutrophils # (Manual) 16.9 TH/MM3 8.6 TH/MM3 Metamyelocytes 1 % Differential Comment FINAL DIFF FINAL DIFF MANUAL MANUAL Platelet Estimate NORMAL NORMAL Platelet Morphology Comment NORMAL NORMAL Eosinophils % 4 % Laboratory Tests Test 12/06/16 12/07/16 04:24 05:19 Sodium Level 135 MEQ/L 136 MEQ/L Potassium Level 4.1 MEQ/L 3.9 MEQ/L Chloride Level 102 MEQ/L 105 MEQ/L Carbon Dioxide Level 24.0 MEQ/L 22.9 MEQ/L Anion Gap 9 MEQ/L 8 MEQ/L Blood Urea Nitrogen 12 MG/DL 11 MG/DL Creatinine 0.46 MG/DL 0.39 MG/DL Estimat Glomerular Filtration 185 ML/MIN 224 ML/MIN Rate Random Glucose 120 MG/DL 91 MG/DL Calcium Level 7.5 MG/DL 7.8 MG/DL Phosphorus Level 2.6 MG/DL Magnesium Level 2.0 MG/DL Total Bilirubin 0.7 MG/DL Aspartate Amino Transf 107 U/L (AST/SGOT) Alanine Aminotransferase 46 U/L (ALT/SGPT) Alkaline Phosphatase 96 U/L Total Protein 5.2 GM/DL Albumin 1.4 GM/DL Microbiology Date/Time Procedure Status Source Growth 12/05/16 10:40 Gram Stain - Final Resulted Wound Chest 12/05/16 10:40 Wound Culture - Preliminary Resulted Anaerobic Gram Positive Cocci 12/05/16 10:40 Acid Fast Stain - Final Resulted Wound Chest NO ACID FAST BACILLI SEEN 12/05/16 10:40 Mycobacterial Culture Resulted Wound Chest Pending 12/05/16 10:40 Gram Stain - Final Resulted Abscess Chest 12/05/16 10:40 Wound Culture - Preliminary Resulted Abscess Chest NO GROWTH IN 48 HOURS. 12/05/16 10:40 Acid Fast Stain - Final Resulted Abscess Chest NO ACID FAST BACILLI SEEN 12/05/16 10:40 Mycobacterial Culture Resulted Abscess Chest Pending 12/05/16 10:40 Fungal Smear - Final Resulted Abscess Chest NO FUNGAL ELEMENTS SEEN. 12/05/16 10:40 Fungal Culture Resulted Abscess Chest Pending 12/05/16 10:40 Fungal Smear - Final Resulted Wound Chest NO FUNGAL ELEMENTS SEEN. 12/05/16 10:40 Fungal Culture Resulted Wound Chest Pending Imaging Last Impressions Chest X-Ray 12/07/16 0600 Signed Impressions: Service Date/Time: Wednesday, December 07, 2016 04:00 - CONCLUSION: 1. Patchy alveolar disease characteristic of edema or pneumonia. There has been no significant change when compared to the prior exam. 2. There is no evidence of pneumothorax. Mario Owen MD Chest CT 12/03/16 0000 Signed Impressions: Service Date/Time: Saturday, December 03, 2016 21:59 - CONCLUSION: 1. Left chest tube is present with the tip of the chest tube mostly above loculated air and fluid in the left pleural space. Cannot exclude a left-sided empyema. Patchy bronchopneumonia also suspected, right greater than left. Zachery Aquino MD Pelvis X-Ray 11/30/16 0000 Signed Impressions: Service Date/Time: Wednesday, November 30, 2016 10:32 - CONCLUSION: 1. Bilateral pubic rami fractures. 2. Apparent nondisplaced fracture through the left sacrum. Jovan Chu MD Chest Tube Insertion 11/30/16 0000 Signed Impressions: Service Date/Time: Wednesday, November 30, 2016 09:48 - CONCLUSION: Uncomplicated chest tube placement as above. Drake Corona MD Head CT 11/25/161950 Signed Impressions: Service Date/Time: November 20:06 - CONCLUSION: Motion degraded study without convincing evidence of acute intracranial hemorrhage. Followup noncontrasted head CT suggested in 24 hours. Neel Moyer MD Cervical Spine CT 11/25/161950 Signed Impressions: Service Date/Time: November 20:06 - CONCLUSION: 1. No fracture or subluxation of the cervical spine. 2. Degenerative changes with a chronic appearing disc osteophyte complex and uncovertebral/facet osteoarthritis causing severe spinal and bilateral foraminal stenosis at C6-C7. 3. Small, age-indeterminate posterior disc protrusion at C7/T1 causing mild spinal stenosis. Neel Moyer MD Abdomen/Pelvis CT 11/25/161950 Signed Impressions: Service Date/Time: November 20:10 - CONCLUSION: 1. No evidence of acute visceral or injury. 2. Fractures of the left body and ala of the sacrum with mildly displaced fracturing in the region of the left S2/S3 foramen. 3. Bilateral superior and inferior pubic rami fractures and a nondisplaced fracture of the left acetabulum. 4. Small presacral and left iliopsoas hematomas. I don't see active bleeding. Neel Moyer MD Thoracic Spine CT 11/25/16 0000 Signed Impressions: Service Date/Time: November 20:10 - CONCLUSION: Left T12 transverse process and facet fracture, minimally displaced. Multiple left posterior rib fractures and placed refer to the chest CT report. Thoracic vertebral bodies are intact. No subluxations. Neel Moyer MD Lumbar Spine CT 11/25/16 0000 Signed Impressions: Service Date/Time: November 20:10 - CONCLUSION: 1. Minimally to mildly displaced left transverse process fractures of L1-L4. 2. Multilevel degenerative changes as above. Large right paracentral disc fragment at L4/L5, probably nonacute. Neel Moyer MD Physical Exam GENERAL: This is a well-nourished, well-developed patient, in no apparent distress. SKIN: Multiple bruising and ecchymosis noted. HEAD: Atraumatic. Normocephalic. No temporal or scalp tenderness. EYES: Pupils equal round and reactive. Extraocular motions intact. No scleral icterus. No injection or drainage. ENT: Nose without bleeding, purulent drainage or septal hematoma. Throat without erythema, tonsillar hypertrophy or exudate. Uvula midline. Airway patent. NECK: Trachea midline. Supple, nontender, no meningeal signs. CARDIOVASCULAR: HS audible no murmur appreciated. RESPIRATORY: Clear to auscultation. Breath sounds equal bilaterally. 2 Chest tubes with serosanguinous discharge noted. GASTROINTESTINAL: Abdomen soft, non-tender, nondistended. MUSCULOSKELETAL: Extremities without clubbing, cyanosis, or edema. No joint tenderness, effusion, or edema noted. No calf tenderness. Negative Homans sign bilaterally. NEUROLOGICAL: Awake and alert. Grossly non focal Psych: cooperative IV line sites with no e/o infection/. Assessment & Plan Remarks Hemothorax with organized hematoma. Less likely to be Empyema but will follow cultures to rule out. Anaerobic gram positive organism. Empyema. Multiple left side rub fractures s/p VATS. Sacral fracture with non displaced acetabular fracture. HTN h/o multiple spine surgeries with hardware in place Recs: Continue Levaquin oral Continue Vanco IV for now for resistant gram positive cocci. d/w Micro to further work it up. Start Flagyl oral. Follow cultures Follow clinically. Jenelle Boyd MD Dec 07, 2016 17:08
[2016-12-07] MEDS: SODIUM CHLORIDE 0.9% FLUSH 5 ML FLUSH IVF SCH ×2 (18:36→21:38)
[2016-12-07] MEDS: cloNIDine HCL 0.1 MG TAB PO PRN (18:38)
[2016-12-07] MEDS: METHOCARBAMOL 500 MG TAB PO PRN (18:40)
[2016-12-07] MEDS: MAGNESIUM HYDROXIDE SUSP 30 ML CUP PO SCH (21:00)
[2016-12-07] MEDS: REMOVE OLD NICODERM (NICOTINE) PATCH TD SCH (21:00)
--- NOTE | 2016-12-07 23:54 | MP ---
cc: PROMISE GASPAR MD DATE OF SURGERY: 12/05/2016 PREOPERATIVE DIAGNOSIS: Left retained hemothorax possible empyema of the chest. POSTOPERATIVE DIAGNOSIS: Hemothorax plus empyema of the chest. OPERATIVE PROCEDURE Thoracoscopy, thoracotomy, evacuation of empyema of the chest, drainage and release, decortication of the lung. SURGEON Dr. Gaspar ANESTHESIA General. ESTIMATED BLOOD LOSS: 100 cc, plus about 400 cc out of chest, old blood. DESCRIPTION OF PROCEDURE: The patient is prepped and draped in the usual fashion, and first thoracoscopy is attempted. The old chest tube is removed. The thoracoscopic port is inserted in the sixth intercostal space, and posterior axillary line with finger dissection, a space is made to allow for camera. Once the camera is inserted, it is apparent that the patient has purulent material in the chest, occupying the posterior sulcus. Lung is stuck with fairly firm fibrous adhesions in this area. Therefore, decision is made to convert this to open thoracotomy. Incision is now extended anteriorly creating a posterolateral thoracotomy. Muscles are cut with cautery and then over the seventh rib the chest is entered. The purulent material is not easily accessed. First I had to dissect the one from the chest wall where it was stuck with fibrinous adhesions. Once this was freed up and lower lobe is moved anteriorly, the lung is collapsed. Once the lung is collapsed the posterior sulcus is now reached and about 400 cc of purulent yellowish pink material is obtained. This was sent for cultures. The lung is now dissected upward and downward with finger dissection and freed up from the chest wall very carefully in pleural plane. Now the surface of the lung is attended and fibrinous adhesions are gradually removed with Estefani and with Dominican forceps. This frees up most of the left lower lobe. This was a very tedious process. It took about 30 minutes to complete. Once this was done, the lung is inflated and now the lung inflates nicely. The chest is now irrigated with copious amounts of saline with about 4 liters of saline and then two chest tubes are placed, anterior apical and posterior angled basal tube. The chest tubes are secured in place with 0 silk, then the lung is again inflated. The chest is now closed with #2-0 Vicryl over the ribs and then #1 Vicryl running stitch for the muscle layer. The skin was closed with neto. The patient tolerated the procedure well. Promise VU /2:23 PM /11:45 PM
[2016-12-08] VITALS (7 sets, daily range): BP systolic 117–192; BP diastolic 66–85; PULSE 82–100; RESP 16–20; TEMP 97.6–99.5; O2SAT 94–100
[2016-12-08] MEDS: oxyCODONE/ACETAMINOPHEN 10 MG/325 MG TAB PO PRN ×5 (02:27→23:37)
[2016-12-08] MEDS: METHOCARBAMOL 500 MG TAB PO PRN (02:27)
[2016-12-08] MEDS: MELATONIN 5 MG TAB PO PRN ×2 (02:31→23:41)
[2016-12-08] MEDS: VANCOMYCIN INJ 1,250 MG in SODIUM CHLOR 0.9% 250 ML INJ 250 ML IV SCH ×4 (02:32→23:36)
[2016-12-08] MEDS: MORPHINE SULFATE 4 MG/ML INJ IV PUSH PRN ×3 (04:43→20:30)
[2016-12-08] MEDS: ACETAMINOPHEN 500 MG CPLT PO SCH ×3 (05:52→20:33)
[2016-12-08] MEDS: metroNIDAZOLE 500 MG TAB PO SCH ×3 (05:52→20:30)
--- NOTE | 2016-12-08 07:09 | RADRPT ---
EXAM DATE/TIME: 12/08/2016 06:25 [facility] COMPARISON: CHEST SINGLE AP, December 07, 2016, 4:00. INDICATIONS : Short of breath. MEDICAL HISTORY : Hemothorax. Pneumothorax. SURGICAL HISTORY : Chest tube. ENCOUNTER: Subsequent ACUITY: 2 weeks PAIN SCORE: 0/10 LOCATION: Bilateral chest FINDINGS: The 2 left-sided chest tubes remain in place. There is no pneumothorax. There continues to be some s cattered pulmonary infiltrates in the lung burroughs bilaterally. These scattered infiltrates appear to be stable. No definite new infiltrates are seen. The heart size is stable. No definite pleural effusi ons. CONCLUSION: No significant interval change. River Singer MD on December 08, 2016 at 7:06 Board Certified Radiologist. This report was verified electronically.
[2016-12-08 07:49] LABS: AUTOMATED NEUTROPHIL # 8.1 TH/MM3 (1.8-7.7); BASOPHIL # 0.1 TH/MM3 (0-0.2); BASOPHIL % 0.7 % (0.0-2.0); EOSINOPHIL # 0.2 TH/MM3 (0-0.4); EOSINOPHIL % 1.8 % (0.0-4.0); HEMATOCRIT 21.6 % (39.0-51.0); HEMO FLAGS DIFF FINAL; LYMPH % 11.7 % (9.0-44.0); LYMPHOCYTE # 1.2 TH/MM3 (1.0-4.8); MEAN CELL VOLUME 105.6 FL (80.0-100.0); MEAN CORPUSCULAR HEMOGLOBIN 35.9 PG (27.0-34.0); MONO % 8.6 % (0.0-8.0); NEUT % 77.2 % (16.0-70.0); PLATELET COUNT 202 TH/MM3 (150-450); RED BLOOD COUNT 2.05 MIL/MM3 (4.50-5.90); RED CELL DISTRIBUTION WIDTH 13.2 % (11.6-17.2); WHITE BLOOD COUNT 10.4 TH/MM3 (4.0-11.0)
[2016-12-08 07:59] LABS: ALKALINE PHOSPHATASE 154 U/L (45-117); ALT (GPT) 82 U/L (12-78); ANION GAP 6 MEQ/L (5-15); AST (GOT) 189 U/L (15-37); BICARBONATE 26.6 MEQ/L (21.0-32.0); BLOOD UREA NITROGEN 6 MG/DL (7-18); CHLORIDE 105 MEQ/L (98-107); GLOMERULAR FILTRATION RATE 200 ML/MIN (>89); POTASSIUM 4.8 MEQ/L (3.5-5.1); SODIUM (NA) 138 MEQ/L (136-145); TOTAL BILIRUBIN ADULT 0.9 MG/DL (0.2-1.0)
[2016-12-08] MEDS: GABAPENTIN 300 MG CAP PO SCH ×3 (08:14→17:48)
[2016-12-08] MEDS: LISINOPRIL 10 MG TAB PO SCH (08:14)
[2016-12-08] MEDS: DOCUSATE SODIUM 50 MG/SENNA 8.6 MG TAB PO SCH ×2 (08:15→20:34)
[2016-12-08] MEDS: LEVOFLOXACIN 500 MG TAB PO SCH (08:15)
[2016-12-08] MEDS: SODIUM CHLORIDE 0.9% FLUSH 5 ML FLUSH IVF SCH ×2 (08:16→20:30)
[2016-12-08] MEDS: DOCUSATE SODIUM 100 MG CAP PO SCH ×2 (08:16→20:34)
[2016-12-08] MEDS: NICOTINE 14 MG/24 HR PATCH TD SCH (08:17)
[2016-12-08] MEDS: cloNIDine HCL 0.1 MG TAB PO PRN (08:39)
[2016-12-08] MEDS ORDERED: Vancomycin Consult Pharmacy 1 EA OTHER SCH (11:00)
--- NOTE | 2016-12-08 11:02 | HHI.PR ---
Subjective Remarks Patient seen and examined Currently chest tube on water seal Afebrile Objective Vitals Vital Signs Date Time Temp Pulse Resp B/P Pulse Ox O2 Delivery O2 Flow Rate FiO2 12/08/16 09:16 99.1 87 18 192/85 97 12/08/16 04:00 97.7 82 20 146/67 97 12/08/16 00:00 97.6 90 20 160/66 100 12/07/16 20:00 98.7 107 19 175/72 93 12/07/16 18:32 101.2 95 18 202/85 98 12/07/16 18:00 Nasal Cannula 2.00 12/07/16 16:27 97.9 97 19 154/69 100 12/07/16 16:00 113 12/07/16 12:00 98.0 98 20 146/67 99 12/07/16 11:31 16 I/O 12/07/16 12/07/16 12/07/16 12/08/16 12/08/16 12/08/16 07:00 15:00 23:00 07:00 15:00 23:00 Intake Total 949 ml Output Total 1450 ml 600 ml 2200 ml 1425 ml Balance -501 ml -600 ml -2200 ml -1425 ml Intake Oral 500 ml IV Total 449 ml Output Urine Total 1400 ml 600 ml 2200 ml 1425 ml Chest Tube Drainage Total 50 ml # Bowel Movements 0 1 Result Diagram: 12/08/1671312/08/16713 Objective Remarks GENERAL: NAD SKIN: Warm and dry. HEAD: Normocephalic. EYES: No scleral icterus. No injection or drainage. NECK: Supple, trachea midline. No JVD or lymphadenopathy. CARDIOVASCULAR: Regular rate and rhythm without murmurs, gallops, or rubs. RESPIRATORY: Breath sounds equal bilaterally. No accessory muscle use. Left- sided chest tube in place GASTROINTESTINAL: Abdomen soft, non-tender, nondistended. MUSCULOSKELETAL: No cyanosis, or edema. BACK: Nontender without obvious deformity. No CVA tenderness. A/P Problem List: (1) Multiple rib fractures ICD Code: S22.49XA Status: Acute (2) Lung contusion ICD Code: S27.329A Status: Acute (3) Fall from ladder ICD Code: W11.XXXA Status: Acute (4) Traumatic pneumothorax ICD Code: S27.0XXA Status: Acute (5) Pelvic fracture ICD Code: S32.9XXA Status: Acute (6) HTN (hypertension) ICD Code: I10 Status: Acute (7) EtOH dependence ICD Code: F10.20 Status: Acute Assessment and Plan 61-year-old male with EtOH abuse, dependence - Continue with CIWA protocol Pneumonia - - Continue Levaquin - Nebulizer treatments scheduled. - Monitor respiratory status. Macrocytic anemia - secondary to EtOH dependence - Thiamine, folate Hyponatremia - Resolved Status post fall, multiple rib fractures, pubic rib fractures, pelvic fractures with sacral fracture nondisplaced acetabular fracture - Orthopedic following patient. Weightbearing status was ordered. Recommended toe-touch weightbearing on the left leg. - Pain management. Patient with chronic pain even prior to this hospitalization. Will add Morphine ER. Left upper lobe loculated effusion/Hemothorax - continue chest tube management per primary team. - 2 L nasal cannula Left Lung empyema:s/p VATS, thoracotomy and decortication with evacuation of left empyema 12/05/16. Continue with Diflucan IV, Zosyn and Vancomycin.Management per CTS. monitor cultures; NTD. Percocet 10mg every 4H breakthrough Tobacco use -nicotine patch HTN :Continue lisinopril. clonidine as needed and Vasotec when necessary. DVT prop B-SCDs GI famotidine Problem Qualifiers (1) Multiple rib fractures: Qualified Code: S22.42XA - Closed fracture of multiple ribs of left side, initial encounter (2) Lung contusion: Qualified Code: S27.321A - Contusion of left lung, initial encounter (3) Fall from ladder: Qualified Code: W11.XXXA - Fall from ladder, initial encounter (4) Traumatic pneumothorax: Qualified Code: S27.0XXA - Traumatic pneumothorax, initial encounter (5) Pelvic fracture: Qualified Code: S32.810A - Multiple closed fractures of pelvis with stable disruption of pelvic zuni, initial encounter Melecio Banks MD Dec 08, 2016 11:01
[2016-12-08] MEDS: ENOXAPARIN SODIUM 40 MG/0.4 ML SYRINGE SQ SCH (12:35)
[2016-12-08] MEDS: PANTOPRAZOLE SOD 40 MG DELAYED RELEASE TAB PO SCH (12:35)
--- NOTE | 2016-12-08 16:33 | HHI.PR ---
Subjective Subjective Notes Pain controlled. Reports he will attempt to get OOB with physical therapy today. Objective Vitals/I&O Vital Signs Date Time Temp Pulse Resp B/P Pulse Ox O2 Delivery O2 Flow Rate FiO2 12/08/16 15:05 Nasal Cannula 2.00 12/08/16 13:20 98.0 94 18 117/79 94 12/06/16 19:45 21 Labs Laboratory Tests Test 12/08/16 07:14 White Blood Count 10.4 Red Blood Count 2.05 Hemoglobin 7.4 Hematocrit 21.6 Mean Corpuscular Volume 105.6 Mean Corpuscular Hemoglobin 35.9 Mean Corpuscular Hemoglobin 34.0 Concent Red Cell Distribution Width 13.2 Platelet Count 202 Mean Platelet Volume 8.2 Neutrophils (%) (Auto) 77.2 Lymphocytes (%) (Auto) 11.7 Monocytes (%) (Auto) 8.6 Eosinophils (%) (Auto) 1.8 Basophils (%) (Auto) 0.7 Neutrophils # (Auto) 8.1 Lymphocytes # (Auto) 1.2 Monocytes # (Auto) 0.9 Eosinophils # (Auto) 0.2 Basophils # (Auto) 0.1 CBC Comment DIFF FINAL Differential Comment Sodium Level 138 Potassium Level 4.8 Chloride Level 105 Carbon Dioxide Level 26.6 Anion Gap 6 Blood Urea Nitrogen 6 Creatinine 0.43 Estimat Glomerular Filtration 200 Rate Random Glucose 111 Calcium Level 7.8 Phosphorus Level 3.2 Magnesium Level 2.0 Total Bilirubin 0.9 Aspartate Amino Transf 189 (AST/SGOT) Alanine Aminotransferase 82 (ALT/SGPT) Alkaline Phosphatase 154 Total Protein 5.7 Albumin 1.5 Date/Time Procedure Status Source Growth 12/05/16 10:40 Gram Stain - Final Resulted Wound Chest 12/05/16 10:40 Wound Culture - Preliminary Resulted Anaerobic Gram Positive Cocci 12/05/16 10:40 Fungal Smear - Final Resulted Wound Chest NO FUNGAL ELEMENTS SEEN. 12/05/16 10:40 Fungal Culture Resulted Wound Chest Pending 12/05/16 10:40 Acid Fast Stain - Final Resulted Wound Chest NO ACID FAST BACILLI SEEN 12/05/16 10:40 Mycobacterial Culture Resulted Wound Chest Pending 12/05/16 10:40 Received Other Pending Radiology Last Impressions Chest X-Ray 11/27/16 0600 Signed Impressions: Service Date/Time: Sunday, November 27, 2016 06:05 - CONCLUSION: 1. Left chest tube remains present and no pneumothorax is visualized. 2. There is a small left pleural effusion with associated volume loss and/or consolidation at the lung base. Neel Mahan MD Pelvis X-Ray 11/25/161950 Signed Impressions: Service Date/Time: November 19:44 - CONCLUSION: Bilateral pubic rami and left sacral fractures. Neel Moyer MD Head CT 11/25/161950 Signed Impressions: Service Date/Time: November 20:06 - CONCLUSION: Motion degraded study without convincing evidence of acute intracranial hemorrhage. Followup noncontrasted head CT suggested in 24 hours. Neel Moyer MD Chest CT 11/25/161950 Signed Impressions: Service Date/Time: November 20:10 - CONCLUSION: Multiple left rib fractures with moderate left pneumothorax, tiny left hemothorax and probable contusion of the left lower lobe. Neel Moyer MD Cervical Spine CT 11/25/161950 Signed Impressions: Service Date/Time: November 20:06 - CONCLUSION: 1. No fracture or subluxation of the cervical spine. 2. Degenerative changes with a chronic appearing disc osteophyte complex and uncovertebral/facet osteoarthritis causing severe spinal and bilateral foraminal stenosis at C6-C7. 3. Small, age-indeterminate posterior disc protrusion at C7/T1 causing mild spinal stenosis. Neel Moyer MD Abdomen/Pelvis CT 11/25/161950 Signed Impressions: Service Date/Time: November 20:10 - CONCLUSION: 1. No evidence of acute visceral or injury. 2. Fractures of the left body and ala of the sacrum with mildly displaced fracturing in the region of the left S2/S3 foramen. 3. Bilateral superior and inferior pubic rami fractures and a nondisplaced fracture of the left acetabulum. 4. Small presacral and left iliopsoas hematomas. I don't see active bleeding. Neel Moyer MD Thoracic Spine CT 11/25/16 0000 Signed Impressions: Service Date/Time: November 20:10 - CONCLUSION: Left T12 transverse process and facet fracture, minimally displaced. Multiple left posterior rib fractures and placed refer to the chest CT report. Thoracic vertebral bodies are intact. No subluxations. Neel Moyer MD Lumbar Spine CT 11/25/16 0000 Signed Impressions: Service Date/Time: November 20:10 - CONCLUSION: 1. Minimally to mildly displaced left transverse process fractures of L1-L4. 2. Multilevel degenerative changes as above. Large right paracentral disc fragment at L4/L5, probably nonacute. Neel Moyer MD Narrative Exam GENERAL: 61 year old disheveled male lying in bed. SKIN: Warm and dry. NECK: Trachea midline. No JVD. CARDIOVASCULAR: Regular rate and rhythm. RESPIRATORY: Lungs clear to auscultation. [address] secured to pleura vacs. No air leaks noted. GASTROINTESTINAL: Abdomen soft and distended. Non-tender to palpation. + BS. MUSCULOSKELETAL: Extremities without cyanosis, or edema. No obvious deformities. NEUROLOGICAL: Awake and alert. Normal speech. A/P Problem List: (1) Pelvic fracture (2) Traumatic pneumothorax (3) Fall from ladder (4) Lung contusion (5) Multiple rib fractures Assessment and Plan INJURIES: Multiple LEFT rib fxs LEFT PTX Tiny LEFT hemoPTX LEFT lower lobe contusion LEFT S2-S3 foramen fx (mild displaced) BILAT superior and inferior pubic rami fx (non-op) LEFT sacral Fx (non-op) LEFT acetabulum fx (non-displaced) (non-op) Diet: Regular, tolerating Pulm: IS, acapella, EZpap. Nebs. Left chest tubes in place secured to pleura- vacs. Pain; Percocet. Morphine IV. Robaxin. Neurontin 300 TID. (Ambien) Activity: OOB. PT and OT evaluating. (WBAT RLE; TTWB LLE) GI: Pepcid Bowel: Roseanne-colace. MOM. LBM 12/04 DVT: SCD's. Lovenox. CXR reviewed and stable. Antibiotics per infectious disease. Appreciate recommendations. Plan to discontinue basal chest tube tomorrow. CXR in AM. Plan of care discussed with patient at bedside. Case management consulted for discharge planning. Patient will need rehabilitation versus SNF. [facility] is evaluating patient for placement. Problem Qualifiers (1) Pelvic fracture: Qualified Code: S32.810A - Multiple closed fractures of pelvis with stable disruption of pelvic [place], initial encounter (2) Traumatic pneumothorax: Qualified Code: S27.0XXA - Traumatic pneumothorax, initial encounter (3) Fall from ladder: Qualified Code: W11.XXXA - Fall from ladder, initial encounter (4) Lung contusion: Qualified Code: S27.321A - Contusion of left lung, initial encounter (5) Multiple rib fractures: Qualified Code: S22.42XA - Closed fracture of multiple ribs of left side, initial encounter Ni Serrano Dec 08, 2016 16:33 initial encounter Ni Serrano Dec 08, 2016 16:33
[2016-12-08] MEDS: MAGNESIUM HYDROXIDE SUSP 30 ML CUP PO SCH (20:34)
[2016-12-08] MEDS: REMOVE OLD NICODERM (NICOTINE) PATCH TD SCH (21:00)
[2016-12-09 04:55] VITALS: BP 188/81; PULSE 92; RESP 18; TEMP 97.4; O2SAT 96
[2016-12-09] MEDS: oxyCODONE/ACETAMINOPHEN 10 MG/325 MG TAB PO PRN ×5 (05:28→22:28)
[2016-12-09] MEDS: metroNIDAZOLE 500 MG TAB PO SCH ×3 (05:28→22:30)
--- NOTE | 2016-12-09 06:05 | RADRPT ---
EXAM DATE/TIME: 12/09/2016 05:15 [facility] COMPARISON: CHEST SINGLE AP, December 08, 2016, 6:25. INDICATIONS : Short of breath. MEDICAL HISTORY : None. SURGICAL HISTORY : Chest tube. ENCOUNTER: Initial ACUITY: 3 days PAIN SCORE: 9/10 LOCATION: Bilateral chest FINDINGS: The cardiac silhouette is enlarged in transverse diameter. A left chest tube is in place. There is no evidence of pneumothorax. There is left lower lobe atelectasis versus pneumonia. CONCLUSION: 1. Left lower lobe atelectasis versus pneumonia. There is no evidence of pneumothorax. There has bee n no significant change when compared to the prior exam. Mario Owen MD on December 09, 2016 at 6:02 Board Certified Radiologist. This report was verified electronically.
[2016-12-09] MEDS ORDERED: PHARMACY ORDERED LAB XX ONE (07:45)
[2016-12-09 08:00] VITALS: BP 189/73; PULSE 98; RESP 20; TEMP 97.4; O2SAT 97
[2016-12-09] MEDS: MORPHINE SULFATE 4 MG/ML INJ IV PUSH PRN ×2 (08:44→12:04)
[2016-12-09] MEDS: LACTULOSE SYRUP 20 GM/30 ML CUP PO SCH (09:00)
[2016-12-09] MEDS: DOCUSATE SODIUM 50 MG/SENNA 8.6 MG TAB PO SCH ×2 (09:00→21:00)
[2016-12-09] MEDS: DOCUSATE SODIUM 100 MG CAP PO SCH ×2 (09:00→21:00)
[2016-12-09] MEDS ORDERED: MAGNESIUM HYDROXIDE SUSP 30 ML CUP PO PRN (09:00)
[2016-12-09] MEDS: LISINOPRIL 10 MG TAB PO SCH (09:33)
[2016-12-09] MEDS: cloNIDine HCL 0.1 MG TAB PO PRN (09:33)
[2016-12-09] MEDS: GABAPENTIN 300 MG CAP PO SCH ×3 (09:34→17:37)
[2016-12-09] MEDS: LEVOFLOXACIN 500 MG TAB PO SCH (09:34)
[2016-12-09] MEDS: NICOTINE 14 MG/24 HR PATCH TD SCH (09:34)
[2016-12-09] MEDS: SODIUM CHLORIDE 0.9% FLUSH 5 ML FLUSH IVF SCH ×2 (09:37→22:28)
[2016-12-09 11:09] VITALS: PULSE 80
[2016-12-09] MEDS: VANCOMYCIN INJ 1,250 MG in SODIUM CHLOR 0.9% 250 ML INJ 250 ML IV SCH ×2 (11:56→17:38)
[2016-12-09] MEDS: ENOXAPARIN SODIUM 40 MG/0.4 ML SYRINGE SQ SCH (11:56)
[2016-12-09 12:00] VITALS: BP 175/74; PULSE 98; RESP 20; TEMP 98.7; O2SAT 98
--- NOTE | 2016-12-09 12:39 | HHI.PR ---
Subjective Remarks Patient seen and examined, no significant rib cage pain Afebrile Objective Vitals Vital Signs Date Time Temp Pulse Resp B/P Pulse Ox O2 Delivery O2 Flow Rate FiO2 12/09/16 11:09 80 12/09/16 08:10 Nasal Cannula 2.00 12/09/16 08:00 97.4 98 20 189/73 97 12/09/16 04:55 97.4 92 18 188/81 96 12/09/16 00:37 18 12/08/16 23:43 99.5 95 16 178/77 96 12/08/16 20:35 18 12/08/16 20:00 Nasal Cannula 2.00 21 12/08/16 19:30 99.0 86 18 168/79 99 12/08/16 17:38 98.0 100 18 158/71 99 12/08/16 15:05 Nasal Cannula 2.00 12/08/16 13:20 98.0 94 18 117/79 94 I/O 12/08/16 12/08/16 12/08/16 12/09/16 12/09/16 12/09/16 07:00 15:00 23:00 07:00 15:00 23:00 Intake Total 480 ml Output Total 1425 ml 400 ml 1250 ml 375 ml Balance -1425 ml 80 ml -1250 ml -375 ml Intake Oral 480 ml Output Urine Total 1425 ml 400 ml 1250 ml 375 ml # Bowel Movements 1 0 Result Diagram: 12/08/1614 12/08/16713 Objective Remarks GENERAL: NAD SKIN: Warm and dry. HEAD: Normocephalic. EYES: No scleral icterus. No injection or drainage. NECK: Supple, trachea midline. No JVD or lymphadenopathy. CARDIOVASCULAR: Regular rate and rhythm without murmurs, gallops, or rubs. RESPIRATORY: Breath sounds equal bilaterally. No accessory muscle use. Left- sided chest tube in place GASTROINTESTINAL: Abdomen soft, non-tender, nondistended. MUSCULOSKELETAL: No cyanosis, or edema. BACK: Nontender without obvious deformity. No CVA tenderness. A/P Problem List: (1) Multiple rib fractures ICD Code: S22.49XA Status: Acute (2) Lung contusion ICD Code: S27.329A Status: Acute (3) Fall from ladder ICD Code: W11.XXXA Status: Acute (4) Traumatic pneumothorax ICD Code: S27.0XXA Status: Acute (5) Pelvic fracture ICD Code: S32.9XXA Status: Acute (6) HTN (hypertension) ICD Code: I10 Status: Acute (7) EtOH dependence ICD Code: F10.20 Status: Acute Assessment and Plan 61-year-old male with EtOH abuse, dependence - Continue with CIWA protocol Pneumonia - - Continue Levaquin - Nebulizer treatments scheduled. - Monitor respiratory status. Macrocytic anemia - secondary to EtOH dependence - Thiamine, folate Hyponatremia - Resolved Status post fall, multiple rib fractures, pubic rib fractures, pelvic fractures with sacral fracture nondisplaced acetabular fracture - Orthopedic following patient. Weightbearing status was ordered. Recommended toe-touch weightbearing on the left leg. - Pain management. Patient with chronic pain even prior to this hospitalization. Continue Morphine ER. Left upper lobe loculated effusion/Hemothorax - continue chest tube management per primary team. - 2 L nasal cannula Left Lung empyema:s/p VATS, thoracotomy and decortication with evacuation of left empyema 12/05/16. Continue with Diflucan IV, Zosyn and Vancomycin.Management per CTS. monitor cultures; NTD. Percocet 10mg every 4H breakthrough. Chest tube management per cardiothoracic surgery Tobacco use -nicotine patch HTN :Continue lisinopril. clonidine as needed and Vasotec when necessary. DVT prop B-SCDs GI famotidine Problem Qualifiers (1) Multiple rib fractures: Qualified Code: S22.42XA - Closed fracture of multiple ribs of left side, initial encounter (2) Lung contusion: Qualified Code: S27.321A - Contusion of left lung, initial encounter (3) Fall from ladder: Qualified Code: W11.XXXA - Fall from ladder, initial encounter (4) Traumatic pneumothorax: Qualified Code: S27.0XXA - Traumatic pneumothorax, initial encounter (5) Pelvic fracture: Qualified Code: S32.810A - Multiple closed fractures of pelvis with stable disruption of pelvic [place], initial encounter Melecio Banks MD Dec 09, 2016 12:39
[2016-12-09] MEDS: PANTOPRAZOLE SOD 40 MG DELAYED RELEASE TAB PO SCH (13:42)
[2016-12-09] MEDS: ACETAMINOPHEN 500 MG CPLT PO SCH ×2 (13:43→22:00)
[2016-12-09 16:00] VITALS: BP 177/69; PULSE 97; RESP 20; TEMP 97.4; O2SAT 98
[2016-12-09] MEDS: REMOVE OLD NICODERM (NICOTINE) PATCH TD SCH (21:00)
[2016-12-09 21:30] VITALS: BP 170/80; PULSE 97; RESP 17; TEMP 98.1; O2SAT 98
[2016-12-09] MEDS: MELATONIN 5 MG TAB PO PRN (22:39)
[2016-12-10] VITALS (8 sets, daily range): BP systolic 148–196; BP diastolic 59–78; PULSE 84–106; RESP 19–21; TEMP 97–98.8; O2SAT 95–99
[2016-12-10] MEDS: ACETAMINOPHEN 500 MG CPLT PO SCH (05:25)
[2016-12-10] MEDS: metroNIDAZOLE 500 MG TAB PO SCH ×3 (05:26→21:15)
[2016-12-10] MEDS: oxyCODONE/ACETAMINOPHEN 10 MG/325 MG TAB PO PRN ×4 (06:53→21:14)
[2016-12-10 07:01] LABS: AUTOMATED NEUTROPHIL # 9.4 TH/MM3 (1.8-7.7); BASOPHIL # 0.1 TH/MM3 (0-0.2); BASOPHIL % 0.6 % (0.0-2.0); EOSINOPHIL # 0.3 TH/MM3 (0-0.4); EOSINOPHIL % 2.2 % (0.0-4.0); HEMATOCRIT 22.8 % (39.0-51.0); LYMPH % 11.4 % (9.0-44.0); LYMPHOCYTE # 1.4 TH/MM3 (1.0-4.8); MEAN CELL VOLUME 105.1 FL (80.0-100.0); MEAN CORPUSCULAR HEMOGLOBIN 35.5 PG (27.0-34.0); MEAN CORPUSCULAR HGB CONC 33.8 % (32.0-36.0); MONO % 7.2 % (0.0-8.0); NEUT % 78.6 % (16.0-70.0); PLATELET COUNT 257 TH/MM3 (150-450); RED BLOOD COUNT 2.17 MIL/MM3 (4.50-5.90); RED CELL DISTRIBUTION WIDTH 13.9 % (11.6-17.2)
[2016-12-10 07:08] LABS: HEMO FLAGS AUTO DIFF
[2016-12-10 07:24] LABS: ALKALINE PHOSPHATASE 212 U/L (45-117); ALT (GPT) 121 U/L (12-78); ANION GAP 8 MEQ/L (5-15); AST (GOT) 248 U/L (15-37); BICARBONATE 26.5 MEQ/L (21.0-32.0); BLOOD UREA NITROGEN 11 MG/DL (7-18); CHLORIDE 103 MEQ/L (98-107); GLOMERULAR FILTRATION RATE 150 ML/MIN (>89); MAGNESIUM 1.9 MG/DL (1.5-2.5); POTASSIUM 4.1 MEQ/L (3.5-5.1); SODIUM (NA) 137 MEQ/L (136-145); TOTAL BILIRUBIN ADULT 0.8 MG/DL (0.2-1.0)
--- NOTE | 2016-12-10 07:26 | RADRPT ---
EXAM DATE/TIME: 12/10/2016 06:27 [facility] COMPARISON: CHEST SINGLE AP, December 09, 2016, 5:15. INDICATIONS : Short of breath, evaluate chest tube MEDICAL HISTORY : hemothorax, pneumothorax, trauma, fall SURGICAL HISTORY : chest tube, thoracotomy ENCOUNTER: Subsequent ACUITY: 2 weeks PAIN SCORE: 10/10 LOCATION: Bilateral chest FINDINGS: And left chest tube remains in place terminating towards the apex with no evidence of pneumothorax. P ulmonary opacities infiltrates particularly some consolidation in the left lung base persists. These are not significant changed. CONCLUSION: Stable chest Jacek Lopez MD on December 10, 2016 at 7:24 Board Certified Radiologist. This report was verified electronically.
[2016-12-10 07:49] LABS: BANDS 4 % (0-6); EOSINOPHILS 2 % (0-4); MYELOCYTES 1 % (0-0); NEUTROPHIL # MANUAL DIFF 10.2 TH/MM3 (1.8-7.7); POLYS (SEG NEUTROPHILS) 80 % (16-70); WBC DIFF SAMPLE 100
[2016-12-10 07:51] LABS: PLATELET ESTIMATE SMEAR NORMAL (NORMAL); PLATELET MORPHOLOGY NORMAL (NORMAL); POLYCHROMASIA 2.1 % (0.0-1.9); SCAN/DIFF FINAL DIFF MANUAL
[2016-12-10] MEDS: DOCUSATE SODIUM 50 MG/SENNA 8.6 MG TAB PO SCH ×2 (09:00→21:00)
[2016-12-10] MEDS: SODIUM CHLORIDE 0.9% FLUSH 5 ML FLUSH IVF SCH ×2 (09:00→21:15)
[2016-12-10] MEDS: LACTULOSE SYRUP 20 GM/30 ML CUP PO SCH (09:00)
[2016-12-10] MEDS: NICOTINE 14 MG/24 HR PATCH TD SCH (09:10)
[2016-12-10] MEDS: DOCUSATE SODIUM 100 MG CAP PO SCH (09:10)
[2016-12-10] MEDS: GABAPENTIN 300 MG CAP PO SCH ×3 (09:10→17:51)
[2016-12-10] MEDS: LISINOPRIL 20 MG TAB PO SCH (09:11)
[2016-12-10] MEDS: LEVOFLOXACIN 500 MG TAB PO SCH (09:11)
[2016-12-10] MEDS: ENOXAPARIN SODIUM 40 MG/0.4 ML SYRINGE SQ SCH (11:28)
--- NOTE | 2016-12-10 11:46 | HHI.PR ---
Subjective Subjective Notes PTD: 15 Patient sitting up in bed, states "I feel great." He states he's been getting out of bed with physical therapy however he was hoping to have his chest tube removed today. Objective Vitals/I&O Vital Signs Date Time Temp Pulse Resp B/P Pulse Ox O2 Delivery O2 Flow Rate FiO2 12/10/16 09:30 96 Nasal Cannula 2.00 21 12/10/16 08:00 98.8 98 19 162/71 Labs Laboratory Tests Test 12/10/16 05:49 White Blood Count 12.0 Red Blood Count 2.17 Hemoglobin 7.7 Hematocrit 22.8 Mean Corpuscular Volume 105.1 Mean Corpuscular Hemoglobin 35.5 Mean Corpuscular Hemoglobin 33.8 Concent Red Cell Distribution Width 13.9 Platelet Count 257 Mean Platelet Volume 8.1 Neutrophils (%) (Auto) 78.6 Lymphocytes (%) (Auto) 11.4 Monocytes (%) (Auto) 7.2 Eosinophils (%) (Auto) 2.2 Basophils (%) (Auto) 0.6 Neutrophils # (Auto) 9.4 Lymphocytes # (Auto) 1.4 Monocytes # (Auto) 0.9 Eosinophils # (Auto) 0.3 Basophils # (Auto) 0.1 CBC Comment AUTO DIFF Differential Total Cells 100 Counted Neutrophils % (Manual) 80 Band Neutrophils % 4 Lymphocytes % 6 Monocytes % 7 Eosinophils % 2 Neutrophils # (Manual) 10.2 Myelocytes 1 Differential Comment FINAL DIFF MANUAL Platelet Estimate NORMAL Platelet Morphology Comment NORMAL Polychromasia 2.1 Sodium Level 137 Potassium Level 4.1 Chloride Level 103 Carbon Dioxide Level 26.5 Anion Gap 8 Blood Urea Nitrogen 11 Creatinine 0.55 Estimat Glomerular Filtration 150 Rate Random Glucose 125 Calcium Level 7.9 Magnesium Level 1.9 Total Bilirubin 0.8 Aspartate Amino Transf 248 (AST/SGOT) Alanine Aminotransferase 121 (ALT/SGPT) Alkaline Phosphatase 212 Total Protein 5.6 Albumin 1.4 Radiology Last Impressions Chest X-Ray 11/27/16 0600 Signed Impressions: Service Date/Time: Sunday, November 27, 2016 06:05 - CONCLUSION: 1. Left chest tube remains present and no pneumothorax is visualized. 2. There is a small left pleural effusion with associated volume loss and/or consolidation at the lung base. Neel Mahan MD Pelvis X-Ray 11/25/161950 Signed Impressions: Service Date/Time: November 19:44 - CONCLUSION: Bilateral pubic rami and left sacral fractures. Neel Moyer MD Head CT 11/25/161950 Signed Impressions: Service Date/Time: November 20:06 - CONCLUSION: Motion degraded study without convincing evidence of acute intracranial hemorrhage. Followup noncontrasted head CT suggested in 24 hours. Neel Moyer MD Chest CT 11/25/161950 Signed Impressions: Service Date/Time: November 20:10 - CONCLUSION: Multiple left rib fractures with moderate left pneumothorax, tiny left hemothorax and probable contusion of the left lower lobe. Neel Moyer MD Cervical Spine CT 11/25/161950 Signed Impressions: Service Date/Time: November 20:06 - CONCLUSION: 1. No fracture or subluxation of the cervical spine. 2. Degenerative changes with a chronic appearing disc osteophyte complex and uncovertebral/facet osteoarthritis causing severe spinal and bilateral foraminal stenosis at C6-C7. 3. Small, age-indeterminate posterior disc protrusion at C7/T1 causing mild spinal stenosis. Neel Moyer MD Abdomen/Pelvis CT 11/25/161950 Signed Impressions: Service Date/Time: November 20:10 - CONCLUSION: 1. No evidence of acute visceral or injury. 2. Fractures of the left body and ala of the sacrum with mildly displaced fracturing in the region of the left S2/S3 foramen. 3. Bilateral superior and inferior pubic rami fractures and a nondisplaced fracture of the left acetabulum. 4. Small presacral and left iliopsoas hematomas. I don't see active bleeding. Neel Moyer MD Thoracic Spine CT 11/25/16 0000 Signed Impressions: Service Date/Time: November 20:10 - CONCLUSION: Left T12 transverse process and facet fracture, minimally displaced. Multiple left posterior rib fractures and placed refer to the chest CT report. Thoracic vertebral bodies are intact. No subluxations. Neel Moyer MD Lumbar Spine CT 11/25/16 0000 Signed Impressions: Service Date/Time: November 20:10 - CONCLUSION: 1. Minimally to mildly displaced left transverse process fractures of L1-L4. 2. Multilevel degenerative changes as above. Large right paracentral disc fragment at L4/L5, probably nonacute. Neel Moyer MD Narrative Exam GENERAL: This is a 58-year-old man lying in bed in no distress. SKIN: Warm and dry. HEAD: Atraumatic. Normocephalic. EYES: PERRLA ENT: No nasal bleeding or discharge. Mucous membranes pink and moist. NECK: Trachea midline. No JVD. CARDIOVASCULAR: Regular rate and rhythm. RESPIRATORY: 2 L nasal cannula. Sats equal 95%. LEFT CT in place to Pleura- vac drainage system / waterseal. No accessory muscle use. Lungs with slight rhonchi to auscultation in all lobes. Breath sounds equal bilaterally. No distress or dyspnea. GASTROINTESTINAL: BS + x 4 quads. Abdomen soft, non-tender, nondistended. MUSCULOSKELETAL: Extremities without cyanosis, or edema. + peripheral pulses x 4 extremities. Warm with good capillary refill and sensation. MAEW. NEUROLOGICAL: Awake and confused. Normal speech and pattern. A/P Problem List: (1) Pelvic fracture (2) Traumatic pneumothorax (3) Fall from ladder (4) Lung contusion (5) Multiple rib fractures Assessment and Plan [place]: This is a 58-year-old male who sustained a fall from approximately 20 feet off a ladder. He fell onto his back. No LOC. GCS = 14. He was originally managed closely in the ICU, however has been transferred to the [facility] floor. Hx: EtOH abuse INJURIES: Multiple LEFT rib fxs LEFT PTX Tiny LEFT hempPTX (w/ CT LEFT lower lobe contusion (spinal stenosis C6-C7) (Disk protrusion C7-T1- spinal stenosis) LEFT S2-S3 foramen fx (mild displaced) BILAT superior and inferior pubic rami fx (non-op) LEFT sacral Fx (non-op) LEFT acetabulum fx (non-displaced) (non-op) Procedures: CT pigtail with IR 12/05: LEFT VATS with thoracotomy; LEFT decortication and empyema removal. 12/09: DC chest tube #2 Consults: CCM, orthopedics, IR, HEPAS. Diet: Regular diet. Tolerating po diet. Encourage good po intake with each meal. Pulmonary: O2 2L NC. Encourage good pulmonary toileting. IS at bedside and pt encouraged to use. Acapella and a EZpap in place. Rationale for use and the importance of use explained to patient at the bedside. All verbalized understanding. Duonebs q 2 PRN. Repeat CXR in the am. PAIN Management: Percocet po. Morphine IV PRN for breakthrough pain . Robaxin po. Neurontin 300mg TID. (Melatonin HS) HTN management: Lopressor, and lisinopril, clonidine PRN. IV antibiotics: Levaquin po. Flagyl po. Vanco IV. Activity: OOB with assist. PT and OT ordered. (WBAT RLE; TTWB LLE) GI prophylaxis: Protonix po. Bowel regimen: Roseanne-colace and MOM. Lactulose q day. BM x 1. DVT prophylaxis: Mechanical VTE with SCDs. Chemical management with Lovenox 40 q day DC Planning: Case management consulted for assistance with final discharge disposition. [facility] is following the patient for admission. Emotional support provided to patient at bedside and plan of care discussed. Discussed with RN at bedside. Patient is hemodynamically stable and being managed on the med/surg floor. Problem Qualifiers (1) Pelvic fracture: Qualified Code: S32.810A - Multiple closed fractures of pelvis with stable disruption of pelvic [place], initial encounter (2) Traumatic pneumothorax: Qualified Code: S27.0XXA - Traumatic pneumothorax, initial encounter (3) Fall from ladder: Qualified Code: W11.XXXA - Fall from ladder, initial encounter (4) Lung contusion: Qualified Code: S27.321A - Contusion of left lung, initial encounter (5) Multiple rib fractures: Qualified Code: S22.42XA - Closed fracture of multiple ribs of left side, initial encounter Shoshana Donovan Dec 10, 2016 11:46 (3) Fall from ladder: Qualified Code: W11.XXXA - Fall from ladder, initial encounter (4) Lung contusion: Qualified Code: S27.321A - Contusion of left lung, initial encounter (5) Multiple rib fractures: Qualified Code: S22.42XA - Closed fracture of multiple ribs of left side, initial encounter Shoshana Donovan Dec 10, 2016 11:46
[2016-12-10] MEDS: MORPHINE SULFATE 4 MG/ML INJ IV PUSH PRN ×4 (12:06→22:48)
--- NOTE | 2016-12-10 12:09 | HHI.PR ---
Subjective Remarks Patient seen and examined Afebrile Still complains of poorly controlled pain Objective Vitals Vital Signs Date Time Temp Pulse Resp B/P Pulse Ox O2 Delivery O2 Flow Rate FiO2 12/10/16 09:30 96 Nasal Cannula 2.00 21 12/10/16 08:00 98.8 98 19 162/71 95 12/10/16 05:30 98.0 88 21 150/69 97 12/10/16 00:15 97.9 84 20 148/67 98 12/09/16 21:30 98.1 97 17 170/80 98 12/09/16 19:20 Nasal Cannula 2.00 21 12/09/16 16:00 97.4 97 20 177/69 98 I/O 12/09/16 12/09/16 12/09/16 12/10/16 12/10/16 12/10/16 07:00 15:00 23:00 07:00 15:00 23:00 Intake Total 900 ml 900 ml Output Total 1250 ml 375 ml 460 ml 1000 ml Balance -1250 ml -375 ml 440 ml -100 ml Intake Oral 900 ml 900 ml Output Urine Total 1250 ml 375 ml 400 ml 1000 ml Chest Tube Drainage Total 60 ml # Voids 5 # Bowel Movements 0 1 0 0 Result Diagram: 12/10/16 0549 12/10/16 0549 Imaging Last Impressions Chest X-Ray 12/10/16 0600 Signed Impressions: Service Date/Time: Saturday, December 10, 2016 06:27 - CONCLUSION: Stable chest Jacek Lopez MD Chest CT 12/03/16 0000 Signed Impressions: Service Date/Time: Saturday, December 03, 2016 21:59 - CONCLUSION: 1. Left chest tube is present with the tip of the chest tube mostly above loculated air and fluid in the left pleural space. Cannot exclude a left-sided empyema. Patchy bronchopneumonia also suspected, right greater than left. Zachery Aquino MD Pelvis X-Ray 11/30/16 0000 Signed Impressions: Service Date/Time: Wednesday, November 30, 2016 10:32 - CONCLUSION: 1. Bilateral pubic rami fractures. 2. Apparent nondisplaced fracture through the left sacrum. Jovan Chu MD Chest Tube Insertion 11/30/16 0000 Signed Impressions: Service Date/Time: Wednesday, November 30, 2016 09:48 - CONCLUSION: Uncomplicated chest tube placement as above. Drake Corona MD Head CT 11/25/161950 Signed Impressions: Service Date/Time: November 20:06 - CONCLUSION: Motion degraded study without convincing evidence of acute intracranial hemorrhage. Followup noncontrasted head CT suggested in 24 hours. Neel Moyer MD Cervical Spine CT 11/25/161950 Signed Impressions: Service Date/Time: November 20:06 - CONCLUSION: 1. No fracture or subluxation of the cervical spine. 2. Degenerative changes with a chronic appearing disc osteophyte complex and uncovertebral/facet osteoarthritis causing severe spinal and bilateral foraminal stenosis at C6-C7. 3. Small, age-indeterminate posterior disc protrusion at C7/T1 causing mild spinal stenosis. Neel Moyer MD Abdomen/Pelvis CT 11/25/161950 Signed Impressions: Service Date/Time: November 20:10 - CONCLUSION: 1. No evidence of acute visceral or injury. 2. Fractures of the left body and ala of the sacrum with mildly displaced fracturing in the region of the left S2/S3 foramen. 3. Bilateral superior and inferior pubic rami fractures and a nondisplaced fracture of the left acetabulum. 4. Small presacral and left iliopsoas hematomas. I don't see active bleeding. Neel Moyer MD Thoracic Spine CT 11/25/16 0000 Signed Impressions: Service Date/Time: November 20:10 - CONCLUSION: Left T12 transverse process and facet fracture, minimally displaced. Multiple left posterior rib fractures and placed refer to the chest CT report. Thoracic vertebral bodies are intact. No subluxations. Neel Moyer MD Lumbar Spine CT 11/25/16 0000 Signed Impressions: Service Date/Time: November 20:10 - CONCLUSION: 1. Minimally to mildly displaced left transverse process fractures of L1-L4. 2. Multilevel degenerative changes as above. Large right paracentral disc fragment at L4/L5, probably nonacute. Neel oMyer MD Objective Remarks GENERAL: NAD SKIN: Warm and dry. HEAD: Normocephalic. EYES: No scleral icterus. No injection or drainage. NECK: Supple, trachea midline. No JVD or lymphadenopathy. CARDIOVASCULAR: Regular rate and rhythm without murmurs, gallops, or rubs. RESPIRATORY: Breath sounds equal bilaterally. No accessory muscle use. Left- sided chest tube in place GASTROINTESTINAL: Abdomen soft, non-tender, nondistended. MUSCULOSKELETAL: No cyanosis, or edema. BACK: Nontender without obvious deformity. No CVA tenderness. A/P Problem List: (1) Multiple rib fractures ICD Code: S22.49XA Status: Acute (2) Lung contusion ICD Code: S27.329A Status: Acute (3) Fall from ladder ICD Code: W11.XXXA Status: Acute (4) Traumatic pneumothorax ICD Code: S27.0XXA Status: Acute (5) Pelvic fracture ICD Code: S32.9XXA Status: Acute (6) HTN (hypertension) ICD Code: I10 Status: Acute (7) EtOH dependence ICD Code: F10.20 Status: Acute Assessment and Plan 61-year-old male with EtOH abuse, dependence - Continue with CIWA protocol Pneumonia - - Continue Levaquin - Nebulizer treatments scheduled. - Monitor respiratory status. Macrocytic anemia - secondary to EtOH dependence - Thiamine, folate Hyponatremia - Resolved Status post fall, multiple rib fractures, pubic rib fractures, pelvic fractures with sacral fracture nondisplaced acetabular fracture - Orthopedic following patient. Weightbearing status was ordered. Recommended toe-touch weightbearing on the left leg. - Pain management. Patient with chronic pain even prior to this hospitalization. Continue Dilaudid. Left upper lobe loculated effusion/Hemothorax - continue chest tube management per primary team. - 2 L nasal cannula Left Lung empyema:s/p VATS, thoracotomy and decortication with evacuation of left empyema 12/05/16. Continue with Diflucan IV, Zosyn and Vancomycin.Management per CTS. monitor cultures; NTD. Percocet 10mg every 4H breakthrough and Neurontin 300 mg 3 times a day added. Chest tube management per cardiothoracic surgery Tobacco use -nicotine patch HTN : Labile BP, Add Lopressor 50 mg twice a day and increase lisinopril to 20 mg daily. clonidine as needed and Vasotec when necessary. DVT prop B-SCDs GI famotidine Problem Qualifiers (1) Multiple rib fractures: Qualified Code: S22.42XA - Closed fracture of multiple ribs of left side, initial encounter (2) Lung contusion: Qualified Code: S27.321A - Contusion of left lung, initial encounter (3) Fall from ladder: Qualified Code: W11.XXXA - Fall from ladder, initial encounter (4) Traumatic pneumothorax: Qualified Code: S27.0XXA - Traumatic pneumothorax, initial encounter (5) Pelvic fracture: Qualified Code: S32.810A - Multiple closed fractures of pelvis with stable disruption of pelvic [place], initial encounter Melecio Banks MD Dec 10, 2016 12:09
[2016-12-10] MEDS: VANCOMYCIN INJ 1,250 MG in SODIUM CHLOR 0.9% 250 ML INJ 250 ML IV SCH ×4 (12:13→20:00)
[2016-12-10] MEDS: PANTOPRAZOLE SOD 40 MG DELAYED RELEASE TAB PO SCH (13:23)
[2016-12-10] MEDS: METOPROLOL TARTRATE 50 MG TAB PO SCH ×2 (13:23→21:15)
[2016-12-10] MEDS: REMOVE OLD NICODERM (NICOTINE) PATCH TD SCH (21:00)
[2016-12-10] MEDS: MELATONIN 5 MG TAB PO PRN (22:51)
[2016-12-11 00:30] VITALS: BP 150/74; PULSE 87; RESP 18; TEMP 98.1; O2SAT 95
[2016-12-11] MEDS: VANCOMYCIN INJ 1,250 MG in SODIUM CHLOR 0.9% 250 ML INJ 250 ML IV SCH ×3 (04:24→20:00)
[2016-12-11] MEDS: oxyCODONE/ACETAMINOPHEN 10 MG/325 MG TAB PO PRN ×5 (04:24→23:52)
[2016-12-11 05:30] VITALS: BP 173/74; PULSE 86; RESP 17; TEMP 98.8; O2SAT 94
[2016-12-11] MEDS: metroNIDAZOLE 500 MG TAB PO SCH ×3 (06:11→22:05)
[2016-12-11] MEDS: MORPHINE SULFATE 4 MG/ML INJ IV PUSH PRN ×4 (06:12→22:11)
--- NOTE | 2016-12-11 06:35 | RADRPT ---
EXAM DATE/TIME: 12/11/2016 05:14 [facility] COMPARISON: CHEST SINGLE AP, December 10, 2016, 6:27. INDICATIONS : Shortness of breath. MEDICAL HISTORY : Hemothorax. Pneumothorax. SURGICAL HISTORY : Thoracotomy. ENCOUNTER: Subsequent ACUITY: 2 weeks PAIN SCORE: 7/10 LOCATION: Bilateral chest FINDINGS: The cardiac silhouette is enlarged in transverse diameter. There is patchy alveolar disease bilateral ly compatible with edema or pneumonia. A left chest tube is in place. There is no evidence of pneumot horax. CONCLUSION: 1. There is no evidence of pneumothorax. 2. Patchy alveolar disease characteristic of edema or pneumonia. There has been no significant birch e when compared to the prior exam. Mario Owen MD on December 11, 2016 at 6:32 Board Certified Radiologist. This report was verified electronically.
[2016-12-11 08:00] VITALS: BP 152/77; PULSE 82; RESP 16; TEMP 99.6; O2SAT 93
[2016-12-11] MEDS: LISINOPRIL 20 MG TAB PO SCH (08:07)
[2016-12-11] MEDS: LEVOFLOXACIN 500 MG TAB PO SCH (08:07)
[2016-12-11] MEDS: DOCUSATE SODIUM 50 MG/SENNA 8.6 MG TAB PO SCH ×2 (08:07→21:00)
[2016-12-11] MEDS: GABAPENTIN 300 MG CAP PO SCH ×3 (08:07→17:55)
[2016-12-11] MEDS: METOPROLOL TARTRATE 50 MG TAB PO SCH ×2 (08:07→22:04)
[2016-12-11] MEDS: NICOTINE 14 MG/24 HR PATCH TD SCH (08:08)
[2016-12-11] MEDS: LACTULOSE SYRUP 20 GM/30 ML CUP PO SCH (08:08)
[2016-12-11] MEDS: SODIUM CHLORIDE 0.9% FLUSH 5 ML FLUSH IVF SCH ×2 (08:09→22:05)
--- NOTE | 2016-12-11 10:57 | HHI.PR ---
Subjective Remarks Patient reports that he is breathing comfortably today. Pain is controlled. States that he is feeling well overall. Objective Vitals Vital Signs Date Time Temp Pulse Resp B/P Pulse Ox O2 Delivery O2 Flow Rate FiO2 12/11/16 08:15 96 Room Air 12/11/16 08:00 99.6 82 16 152/77 93 12/11/16 06:17 18 12/11/16 05:30 98.8 86 17 173/74 94 12/11/16 00:30 98.1 87 18 150/74 95 12/10/16 20:50 97.0 90 19 168/77 96 12/10/16 20:00 86 12/10/16 19:45 Nasal Cannula 2.00 21 12/10/16 18:48 18 12/10/16 18:28 93 12/10/16 16:00 98.1 85 20 150/59 95 12/10/16 12:00 98.5 106 21 196/78 99 I/O 12/10/16 12/10/16 12/10/16 12/11/16 12/11/16 12/11/16 07:00 15:00 23:00 07:00 15:00 23:00 Intake Total 900 ml 950 ml 900 ml Output Total 1000 ml 275 ml 0 ml 1000 ml Balance -100 ml -275 ml 950 ml -100 ml Intake Oral 900 ml 950 ml 900 ml Output Urine Total 1000 ml 275 ml 0 ml 1000 ml # Bowel Movements 0 1 0 0 Result Diagram: 12/10/16 0549 12/10/16 0549 Objective Remarks GENERAL: Patient is in no acute distress. CARDIOVASCULAR: Normal rate and regular rhythm without murmurs, gallops, or rubs. RESPIRATORY: Diminished breath sounds on the left. There is a chest tube in place on the left side. Right lung field mostly clear to auscultation. GASTROINTESTINAL: Abdomen soft, non-tender, non-distended. Normal active bowel sounds MUSCULOSKELETAL: Extremities without cyanosis, or edema. NEURO: Awake and alert. Moves all ext x4. Generalized weakness. PSYCH: Calm A/P Problem List: (1) Multiple rib fractures ICD Code: S22.49XA Status: Acute (2) Lung contusion ICD Code: S27.329A Status: Acute (3) Fall from ladder ICD Code: W11.XXXA Status: Acute (4) Traumatic pneumothorax ICD Code: S27.0XXA Status: Acute (5) Pelvic fracture ICD Code: S32.9XXA Status: Acute (6) HTN (hypertension) ICD Code: I10 Status: Acute (7) EtOH dependence ICD Code: F10.20 Status: Acute Assessment and Plan 58-year-old gentleman reportedly fell 20 feet off of a ladder onto his back without loss of consciousness. He may have been drinking. He was brought in as a trauma alert. Patient arrived alert with mild confusion his [place] Coma Scale was 14 complaining of back pain and left chest pain. Patient had multiple left-sided rib fractures with hemopneumothorax. Patient also had multiple pelvic fractures with sacral fracture nondisplaced acetabular fracture. Initially managed in critical care, improving clinically and was transferred to medical-surgical floor. Hospitalist service following for medical management. Trauma team as primary. EtOH abuse, dependence - S/P [facility] protocol. Patient was counseled. Pneumonia/Left Lung empyema:s/p VATS, thoracotomy and decortication with evacuation of left empyema 12/05/16. Continue with Diflucan IV, Zosyn and Vancomycin. Management per ID and CTS. monitor cultures. Percocet 10mg every 4H breakthrough and Neurontin 300 mg 3 times a day added. Chest tube management per trauma team. - Nebulizer treatments scheduled. - Monitor respiratory status. Macrocytic anemia - secondary to EtOH dependence - Thiamine, folate Status post fall, multiple rib fractures, pubic rib fractures, pelvic fractures with sacral fracture nondisplaced acetabular fracture - Orthopedic following patient. Weightbearing status was ordered. Recommended toe-touch weightbearing on the left leg. - Pain management. Patient with chronic pain even prior to this hospitalization. Continue Dilaudid. Tobacco use -nicotine patch HTN : Labile BP, continue Lopressor 50 mg twice a day and lisinopril to 20 mg daily. clonidine as needed and Vasotec when necessary. Prophylaxis: DVT prop B-SCDs GI: famotidine Problem Qualifiers (1) Multiple rib fractures: Qualified Code: S22.42XA - Closed fracture of multiple ribs of left side, initial encounter (2) Lung contusion: Qualified Code: S27.321A - Contusion of left lung, initial encounter (3) Fall from ladder: Qualified Code: W11.XXXA - Fall from ladder, initial encounter (4) Traumatic pneumothorax: Qualified Code: S27.0XXA - Traumatic pneumothorax, initial encounter (5) Pelvic fracture: Qualified Code: S32.810A - Multiple closed fractures of pelvis with stable disruption of pelvic [place], initial encounter Simon Lomax MD Dec 11, 2016 10:57
--- NOTE | 2016-12-11 11:27 | HHI.PR ---
Subjective Subjective Notes PTD: 16 Patient lying in bed, states that he has been getting out of bed. Patient states that the pain medications that are prescribed are working well to control his pain. Objective Vitals/I&O Vital Signs Date Time Temp Pulse Resp B/P Pulse Ox O2 Delivery O2 Flow Rate FiO2 12/11/16 08:15 96 Room Air 12/11/16 08:00 99.6 82 16 152/77 12/10/16 19:45 2.00 21 Labs Laboratory Tests Test 12/08/16 12/09/16 12/10/16 07:14 10:15 05:49 Phosphorus Level 3.2 MG/DL Vancomycin Level Trough 14.2 MCG/ML White Blood Count 12.0 TH/MM3 Red Blood Count 2.17 MIL/MM3 Hemoglobin 7.7 GM/DL Hematocrit 22.8 % Mean Corpuscular Volume 105.1 FL Mean Corpuscular Hemoglobin 35.5 PG Mean Corpuscular Hemoglobin 33.8 % Concent Red Cell Distribution Width 13.9 % Platelet Count 257 TH/MM3 Mean Platelet Volume 8.1 FL Neutrophils (%) (Auto) 78.6 % Lymphocytes (%) (Auto) 11.4 % Monocytes (%) (Auto) 7.2 % Eosinophils (%) (Auto) 2.2 % Basophils (%) (Auto) 0.6 % Neutrophils # (Auto) 9.4 TH/MM3 Lymphocytes # (Auto) 1.4 TH/MM3 Monocytes # (Auto) 0.9 TH/MM3 Eosinophils # (Auto) 0.3 TH/MM3 Basophils # (Auto) 0.1 TH/MM3 CBC Comment AUTO DIFF Differential Total Cells 100 Counted Neutrophils % (Manual) 80 % Band Neutrophils % 4 % Lymphocytes % 6 % Monocytes % 7 % Eosinophils % 2 % Neutrophils # (Manual) 10.2 TH/MM3 Myelocytes 1 % Differential Comment FINAL DIFF MANUAL Platelet Estimate NORMAL Platelet Morphology Comment NORMAL Polychromasia 2.1 % Sodium Level 137 MEQ/L Potassium Level 4.1 MEQ/L Chloride Level 103 MEQ/L Carbon Dioxide Level 26.5 MEQ/L Anion Gap 8 MEQ/L Blood Urea Nitrogen 11 MG/DL Creatinine 0.55 MG/DL Estimat Glomerular Filtration 150 ML/MIN Rate Random Glucose 125 MG/DL Calcium Level 7.9 MG/DL Magnesium Level 1.9 MG/DL Total Bilirubin 0.8 MG/DL Aspartate Amino Transf 248 U/L (AST/SGOT) Alanine Aminotransferase 121 U/L (ALT/SGPT) Alkaline Phosphatase 212 U/L Total Protein 5.6 GM/DL Albumin 1.4 GM/DL Radiology Last Impressions Chest X-Ray 11/27/16 0600 Signed Impressions: Service Date/Time: Sunday, November 27, 2016 06:05 - CONCLUSION: 1. Left chest tube remains present and no pneumothorax is visualized. 2. There is a small left pleural effusion with associated volume loss and/or consolidation at the lung base. Neel Mahan MD Pelvis X-Ray 11/25/161950 Signed Impressions: Service Date/Time: November 19:44 - CONCLUSION: Bilateral pubic rami and left sacral fractures. Neel Moyer MD Head CT 11/25/161950 Signed Impressions: Service Date/Time: November 20:06 - CONCLUSION: Motion degraded study without convincing evidence of acute intracranial hemorrhage. Followup noncontrasted head CT suggested in 24 hours. Neel Moyer MD Chest CT 11/25/161950 Signed Impressions: Service Date/Time: November 20:10 - CONCLUSION: Multiple left rib fractures with moderate left pneumothorax, tiny left hemothorax and probable contusion of the left lower lobe. Neel Moyer MD Cervical Spine CT 11/25/161950 Signed Impressions: Service Date/Time: November 20:06 - CONCLUSION: 1. No fracture or subluxation of the cervical spine. 2. Degenerative changes with a chronic appearing disc osteophyte complex and uncovertebral/facet osteoarthritis causing severe spinal and bilateral foraminal stenosis at C6-C7. 3. Small, age-indeterminate posterior disc protrusion at C7/T1 causing mild spinal stenosis. Neel Moyer MD Abdomen/Pelvis CT 11/25/161950 Signed Impressions: Service Date/Time: November 20:10 - CONCLUSION: 1. No evidence of acute visceral or injury. 2. Fractures of the left body and ala of the sacrum with mildly displaced fracturing in the region of the left S2/S3 foramen. 3. Bilateral superior and inferior pubic rami fractures and a nondisplaced fracture of the left acetabulum. 4. Small presacral and left iliopsoas hematomas. I don't see active bleeding. Neel Moyer MD Thoracic Spine CT 11/25/16 Signed Impressions: Service Date/Time: November 20:10 - CONCLUSION: Left T12 transverse process and facet fracture, minimally displaced. Multiple left posterior rib fractures and placed refer to the chest CT report. Thoracic vertebral bodies are intact. No subluxations. Neel Moyer MD Lumbar Spine CT 11/25/16 Signed Impressions: Service Date/Time: November 20:10 - CONCLUSION: 1. Minimally to mildly displaced left transverse process fractures of L1-L4. 2. Multilevel degenerative changes as above. Large right paracentral disc fragment at L4/L5, probably nonacute. Neel Moyer MD Narrative Exam GENERAL: This is a 58-year-old man well developed, well nourished, lying in bed in no distress. SKIN: Warm and dry. HEAD: Atraumatic. Normocephalic. EYES: PERRLA ENT: No nasal bleeding or discharge. Mucous membranes pink and moist. NECK: Trachea midline. No JVD. CARDIOVASCULAR: Regular rate and rhythm. RESPIRATORY: 2 L nasal cannula. Sats equal 94-96%. LEFT CT in place to Pleura- vac drainage system / waterseal. No accessory muscle use. Lungs with slight rhonchi to auscultation in all lobes. Breath sounds equal bilaterally. No distress or dyspnea. GASTROINTESTINAL: BS + x 4 quads. Abdomen soft, non-tender, nondistended. MUSCULOSKELETAL: Extremities without cyanosis, or edema. + peripheral pulses x 4 extremities. Warm with good capillary refill and sensation. MAEW. NEUROLOGICAL: Awake and confused. Normal speech and pattern. A/P Problem List: (1) Pelvic fracture (2) Traumatic pneumothorax (3) Fall from ladder (4) Lung contusion (5) Multiple rib fractures Assessment and Plan [place]: This is a 58-year-old male who sustained a fall from approximately 20 feet off a ladder. He fell onto his back. No LOC. GCS = 14. He was originally managed closely in the ICU, however [facility] Hx: EtOH abuse INJURIES: Multiple LEFT rib fxs LEFT PTX Tiny LEFT hempPTX (w/ CT LEFT lower lobe contusion (spinal stenosis C6-C7) (Disk protrusion C7-T1- spinal stenosis) LEFT S2-S3 foramen fx (mild displaced) BILAT superior and inferior pubic rami fx (non-op) LEFT sacral Fx (non-op) LEFT acetabulum fx (non-displaced) (non-op) Procedures: CT pigtail with IR 12/05: LEFT VATS with thoracotomy; LEFT decortication and empyema removal. 12/09: DC chest tube #2 Consults: CCM, orthopedics, IR, HEPAS. Diet: Regular diet. Tolerating po diet. Encourage good po intake with each meal. Pulmonary: O2 2L NC. Encourage good pulmonary toileting. IS at bedside and pt encouraged to use. Acapella and a EZpap in place. Rationale for use and the importance of use explained to patient at the bedside. All verbalized understanding. Duonebs q 2 PRN. Left chest tube in place to Pleur-evac drainage system to water seal. Continues with increased output. Re-evaluate tomorrow for possible removal. Repeat CXR in the am. PAIN Management: Percocet po. Morphine IV PRN for breakthrough pain . Robaxin po. Neurontin 300mg TID. (Melatonin HS) HTN management: Lopressor, and lisinopril, clonidine PRN. IV antibiotics: Levaquin po. Flagyl po. Vanco IV. Activity: OOB with assist. PT and OT ordered. (WBAT RLE; TTWB LLE) GI prophylaxis: Protonix po. Bowel regimen: Roseanne-colace and MOM. Lactulose q day. BM x 1. DVT prophylaxis: Mechanical VTE with SCDs. Chemical management with Lovenox 40 q day DC Planning: Case management consulted for assistance with final discharge disposition. [facility] is following the patient for admission. Emotional support provided to patient at bedside and plan of care discussed. Discussed with RN at bedside. Patient is hemodynamically stable and being managed on the med/surg floor. Attending Statement Patient greatly improved since his arrival Bilateral good breath sounds Patient is somewhat confused occasionally and I believe he is developed in the delirium tremens and alcoholic encephalopathy Admittedly patient drinks heavily The exam, history, and the medical decision-making described in the above note were completed with the assistance of the mid-level provider. I reviewed and agree with the findings presented. I attest that I had a [id number]-depy encounter with the patient on the same day, and personally performed and documented my assessment and findings in the medical record. Problem Qualifiers (1) Pelvic fracture: Qualified Code: S32.810A - Multiple closed fractures of pelvis with stable disruption of pelvic [place], initial encounter (2) Traumatic pneumothorax: Qualified Code: S27.0XXA - Traumatic pneumothorax, initial encounter (3) Fall from ladder: Qualified Code: W11.XXXA - Fall from ladder, initial encounter (4) Lung contusion: Qualified Code: S27.321A - Contusion of left lung, initial encounter (5) Multiple rib fractures: Qualified Code: S22.42XA - Closed fracture of multiple ribs of left side, initial encounter Shoshana Donovan Dec 11, 2016 11:27 Daina Faustin MD Dec 18, 2016 16:18
[2016-12-11] MEDS: ENOXAPARIN SODIUM 40 MG/0.4 ML SYRINGE SQ SCH (11:51)
[2016-12-11] MEDS: SODIUM CHLORIDE 0.9% FLUSH 5 ML FLUSH IVF PRN (11:52)
[2016-12-11 12:00] VITALS: BP 158/73; PULSE 87; RESP 16; TEMP 98.5; O2SAT 92
[2016-12-11] MEDS: PANTOPRAZOLE SOD 40 MG DELAYED RELEASE TAB PO SCH (13:23)
[2016-12-11 16:00] VITALS: BP 156/69; PULSE 97; RESP 16; TEMP 98.9; O2SAT 92
[2016-12-11 20:10] VITALS: BP 175/76; PULSE 97; RESP 18; TEMP 98.2; O2SAT 94
[2016-12-11] MEDS: REMOVE OLD NICODERM (NICOTINE) PATCH TD SCH (21:00)
[2016-12-11] MEDS: METHOCARBAMOL 500 MG TAB PO PRN (23:52)
[2016-12-11] MEDS: MELATONIN 5 MG TAB PO PRN (23:54)
[2016-12-12 00:38] VITALS: BP 184/69; PULSE 87; RESP 20; TEMP 98.9; O2SAT 92
[2016-12-12] MEDS: cloNIDine HCL 0.1 MG TAB PO PRN (01:20)
[2016-12-12] MEDS: MORPHINE SULFATE 4 MG/ML INJ IV PUSH PRN ×4 (01:55→20:09)
[2016-12-12 04:03] VITALS: BP 145/68; PULSE 83; RESP 20; TEMP 98.6; O2SAT 93
[2016-12-12] MEDS: oxyCODONE/ACETAMINOPHEN 10 MG/325 MG TAB PO PRN ×4 (04:11→22:48)
[2016-12-12] MEDS: VANCOMYCIN INJ 1,250 MG in SODIUM CHLOR 0.9% 250 ML INJ 250 ML IV SCH ×2 (04:11→12:57)
[2016-12-12] MEDS: metroNIDAZOLE 500 MG TAB PO SCH ×3 (05:24→22:47)
--- NOTE | 2016-12-12 06:05 | RADRPT ---
EXAM DATE/TIME: 12/12/2016 05:13 [facility] COMPARISON: CHEST SINGLE AP, December 11, 2016, 5:14. INDICATIONS : Shortness of breath. MEDICAL HISTORY : Hemothorax. Pneumothorax. SURGICAL HISTORY : Thoracotomy. ENCOUNTER: Subsequent ACUITY: 2 weeks PAIN SCORE: 4/10 LOCATION: Bilateral chest FINDINGS: The cardiac silhouette is enlarged in transverse diameter. There is patchy alveolar disease bilateral ly compatible with edema or pneumonia. A left chest tube is in place. There is no evidence of pneumot horax. CONCLUSION: 1. Patchy alveolar disease characteristic of edema or pneumonia. There has been no significant birch e when compared to the prior exam. Mario Owen MD on December 12, 2016 at 6:03 Board Certified Radiologist. This report was verified electronically.
[2016-12-12 08:18] VITALS: BP 194/85; PULSE 85; RESP 20; TEMP 97.6
[2016-12-12 08:19] LABS: AUTOMATED NEUTROPHIL # 8.2 TH/MM3 (1.8-7.7); BASOPHIL # 0.6 TH/MM3 (0-0.2); BASOPHIL % 5.1 % (0.0-2.0); EOSINOPHIL # 0.2 TH/MM3 (0-0.4); EOSINOPHIL % 1.7 % (0.0-4.0); HEMATOCRIT 25.5 % (39.0-51.0); LYMPH % 10.9 % (9.0-44.0); LYMPHOCYTE # 1.2 TH/MM3 (1.0-4.8); MEAN CELL VOLUME 103.9 FL (80.0-100.0); MEAN CORPUSCULAR HEMOGLOBIN 35.3 PG (27.0-34.0); NEUT % 73.3 % (16.0-70.0); PLATELET COUNT 262 TH/MM3 (150-450); RED BLOOD COUNT 2.46 MIL/MM3 (4.50-5.90); RED CELL DISTRIBUTION WIDTH 14.6 % (11.6-17.2); WHITE BLOOD COUNT 11.1 TH/MM3 (4.0-11.0)
[2016-12-12 08:23] LABS: HEMO FLAGS DIFF FINAL
[2016-12-12 09:26] LABS: ALKALINE PHOSPHATASE 221 U/L (45-117); ALT (GPT) 68 U/L (12-78); ANION GAP 11 MEQ/L (5-15); AST (GOT) 113 U/L (15-37); BICARBONATE 22.4 MEQ/L (21.0-32.0); BLOOD UREA NITROGEN 18 MG/DL (7-18); CHLORIDE 102 MEQ/L (98-107); GLOMERULAR FILTRATION RATE 82 ML/MIN (>89); MAGNESIUM 1.9 MG/DL (1.5-2.5); POTASSIUM 4.1 MEQ/L (3.5-5.1); SODIUM (NA) 135 MEQ/L (136-145); TOTAL BILIRUBIN ADULT 0.6 MG/DL (0.2-1.0)
[2016-12-12] MEDS: NICOTINE 14 MG/24 HR PATCH TD SCH (09:58)
[2016-12-12] MEDS: METOPROLOL TARTRATE 50 MG TAB PO SCH ×2 (09:59→20:08)
[2016-12-12] MEDS: DOCUSATE SODIUM 50 MG/SENNA 8.6 MG TAB PO SCH ×2 (09:59→20:10)
[2016-12-12] MEDS: LEVOFLOXACIN 500 MG TAB PO SCH (09:59)
[2016-12-12] MEDS: GABAPENTIN 300 MG CAP PO SCH ×3 (09:59→18:09)
[2016-12-12] MEDS: LISINOPRIL 20 MG TAB PO SCH (09:59)
[2016-12-12] MEDS: SODIUM CHLORIDE 0.9% FLUSH 5 ML FLUSH IVF SCH ×2 (10:05→20:10)
[2016-12-12] MEDS: METHOCARBAMOL 500 MG TAB PO PRN ×2 (10:05→22:47)
--- NOTE | 2016-12-12 10:30 | HHI.PR ---
Subjective Remarks Patient has no complaints today. States that he is feeling well. Breathing comfortably. He reports that the chest tube will be removed today. Objective Vitals Vital Signs Date Time Temp Pulse Resp B/P Pulse Ox O2 Delivery O2 Flow Rate FiO2 12/12/16 08:18 97.6 85 20 194/85 12/12/16 04:03 98.6 83 20 145/68 93 12/12/16 00:38 98.9 87 20 184/69 92 12/11/16 20:10 98.2 97 18 175/76 94 12/11/16 20:00 Room Air 12/11/16 16:00 98.9 97 16 156/69 92 12/11/16 12:00 98.5 87 16 158/73 92 I/O 12/11/16 12/11/16 12/11/16 12/12/16 12/12/16 12/12/16 07:00 15:00 23:00 07:00 15:00 23:00 Intake Total 900 ml 960 ml Output Total 1000 ml 805 ml 500 ml Balance -100 ml 155 ml -500 ml Intake Oral 900 ml 960 ml Output Urine Total 1000 ml 800 ml 500 ml Chest Tube Drainage Total 5 ml # Bowel Movements 0 0 Result Diagram: 12/12/1672412/12/16724 Objective Remarks GENERAL: Patient is in no acute distress. CARDIOVASCULAR: Normal rate and regular rhythm without murmurs, gallops, or rubs. RESPIRATORY: Diminished breath sounds on the left. There is a chest tube in place on the left side. Right lung field mostly clear to auscultation. GASTROINTESTINAL: Abdomen soft, non-tender, non-distended. Normal active bowel sounds MUSCULOSKELETAL: Extremities without cyanosis, or edema. NEURO: Awake and alert. Moves all ext x4. Generalized weakness. PSYCH: Calm A/P Problem List: (1) Multiple rib fractures ICD Code: S22.49XA Status: Acute (2) Lung contusion ICD Code: S27.329A Status: Acute (3) Fall from ladder ICD Code: W11.XXXA Status: Acute (4) Traumatic pneumothorax ICD Code: S27.0XXA Status: Acute (5) Pelvic fracture ICD Code: S32.9XXA Status: Acute (6) HTN (hypertension) ICD Code: I10 Status: Acute (7) EtOH dependence ICD Code: F10.20 Status: Acute Assessment and Plan 58-year-old gentleman reportedly fell 20 feet off of a ladder onto his back without loss of consciousness. He may have been drinking. He was brought in as a trauma alert. Patient arrived alert with mild confusion his [place] Coma Scale was 14 complaining of back pain and left chest pain. Patient had multiple left-sided rib fractures with hemopneumothorax. Patient also had multiple pelvic fractures with sacral fracture nondisplaced acetabular fracture. Initially managed in critical care, improving clinically and was transferred to medical-surgical floor. Hospitalist service following for medical management. Trauma team as primary. EtOH abuse, dependence - S/P CIWA protocol. Patient went through DTs. Patient was counseled about complete cessation. Pneumonia/Left Lung empyema:s/p VATS, thoracotomy and decortication with evacuation of left empyema 12/05/16. Continue with Diflucan IV, Zosyn and Vancomycin. Management per ID and CTS. monitor cultures. Percocet 10mg every 4H breakthrough and Neurontin 300 mg 3 times a day added. Chest tube management per trauma team. - Nebulizer treatments scheduled. - Monitor respiratory status. Macrocytic anemia - secondary to EtOH dependence - Thiamine, folate Status post fall, multiple rib fractures, pubic rib fractures, pelvic fractures with sacral fracture nondisplaced acetabular fracture - Orthopedic following patient. Weightbearing status was ordered. Recommended toe-touch weightbearing on the left leg. - Pain management. Patient with chronic pain even prior to this hospitalization. Pain is better controlled. Tobacco use -nicotine patch HTN : Labile BP, continue Lopressor 50 mg twice a day and lisinopril to 20 mg daily. clonidine as needed and Vasotec when necessary. Prophylaxis: DVT prop B-SCDs GI: famotidine Problem Qualifiers (1) Multiple rib fractures: Qualified Code: S22.42XA - Closed fracture of multiple ribs of left side, initial encounter (2) Lung contusion: Qualified Code: S27.321A - Contusion of left lung, initial encounter (3) Fall from ladder: Qualified Code: W11.XXXA - Fall from ladder, initial encounter (4) Traumatic pneumothorax: Qualified Code: S27.0XXA - Traumatic pneumothorax, initial encounter (5) Pelvic fracture: Qualified Code: S32.810A - Multiple closed fractures of pelvis with stable disruption of pelvic alatna, initial encounter Simon Lomax MD Dec 12, 2016 10:30
--- NOTE | 2016-12-12 10:59 | HHI.PR ---
Subjective Subjective Notes PTD: 17 Patient sitting up in bed in no distress. No complaints offered, except that he would like his chest tube removed. Objective Vitals/I&O Vital Signs Date Time Temp Pulse Resp B/P Pulse Ox O2 Delivery O2 Flow Rate FiO2 12/12/16 08:18 97.6 85 20 194/85 12/12/16 04:03 93 12/11/16 20:00 Room Air 12/10/16 19:45 2.00 21 Labs Laboratory Tests Test 12/12/16 07:25 White Blood Count 11.1 Red Blood Count 2.46 Hemoglobin 8.7 Hematocrit 25.5 Mean Corpuscular Volume 103.9 Mean Corpuscular Hemoglobin 35.3 Mean Corpuscular Hemoglobin 34.0 Concent Red Cell Distribution Width 14.6 Platelet Count 262 Mean Platelet Volume 8.3 Neutrophils (%) (Auto) 73.3 Lymphocytes (%) (Auto) 10.9 Monocytes (%) (Auto) 9.0 Eosinophils (%) (Auto) 1.7 Basophils (%) (Auto) 5.1 Neutrophils # (Auto) 8.2 Lymphocytes # (Auto) 1.2 Monocytes # (Auto) 1.0 Eosinophils # (Auto) 0.2 Basophils # (Auto) 0.6 CBC Comment DIFF FINAL Differential Comment Sodium Level 135 Potassium Level 4.1 Chloride Level 102 Carbon Dioxide Level 22.4 Anion Gap 11 Blood Urea Nitrogen 18 Creatinine 0.93 Estimat Glomerular Filtration 82 Rate Random Glucose 107 Calcium Level 7.6 Magnesium Level 1.9 Total Bilirubin 0.6 Aspartate Amino Transf 113 (AST/SGOT) Alanine Aminotransferase 68 (ALT/SGPT) Alkaline Phosphatase 221 Total Protein 5.7 Albumin 1.4 Radiology Last Impressions Chest X-Ray 11/27/16 0600 Signed Impressions: Service Date/Time: Sunday, November 27, 2016 06:05 - CONCLUSION: 1. Left chest tube remains present and no pneumothorax is visualized. 2. There is a small left pleural effusion with associated volume loss and/or consolidation at the lung base. Neel Mahan MD Pelvis X-Ray 11/25/161950 Signed Impressions: Service Date/Time: November 19:44 - CONCLUSION: Bilateral pubic rami and left sacral fractures. Neel Moyer MD Head CT 11/25/161950 Signed Impressions: Service Date/Time: November 20:06 - CONCLUSION: Motion degraded study without convincing evidence of acute intracranial hemorrhage. Followup noncontrasted head CT suggested in 24 hours. Neel Moyer MD Chest CT 11/25/161950 Signed Impressions: Service Date/Time: November 20:10 - CONCLUSION: Multiple left rib fractures with moderate left pneumothorax, tiny left hemothorax and probable contusion of the left lower lobe. Neel Moyer MD Cervical Spine CT 11/25/161950 Signed Impressions: Service Date/Time: November 20:06 - CONCLUSION: 1. No fracture or subluxation of the cervical spine. 2. Degenerative changes with a chronic appearing disc osteophyte complex and uncovertebral/facet osteoarthritis causing severe spinal and bilateral foraminal stenosis at C6-C7. 3. Small, age-indeterminate posterior disc protrusion at C7/T1 causing mild spinal stenosis. Neel Moyer MD Abdomen/Pelvis CT 11/25/161950 Signed Impressions: Service Date/Time: November 20:10 - CONCLUSION: 1. No evidence of acute visceral or injury. 2. Fractures of the left body and ala of the sacrum with mildly displaced fracturing in the region of the left S2/S3 foramen. 3. Bilateral superior and inferior pubic rami fractures and a nondisplaced fracture of the left acetabulum. 4. Small presacral and left iliopsoas hematomas. I don't see active bleeding. Neel Moyer MD Thoracic Spine CT 11/25/16 0000 Signed Impressions: Service Date/Time: November 20:10 - CONCLUSION: Left T12 transverse process and facet fracture, minimally displaced. Multiple left posterior rib fractures and placed refer to the chest CT report. Thoracic vertebral bodies are intact. No subluxations. Neel Moyer MD Lumbar Spine CT 11/25/16 0000 Signed Impressions: Service Date/Time: November 20:10 - CONCLUSION: 1. Minimally to mildly displaced left transverse process fractures of L1-L4. 2. Multilevel degenerative changes as above. Large right paracentral disc fragment at L4/L5, probably nonacute. Neel Moyer MD Narrative Exam GENERAL: This is a 58-year-old man well developed, well nourished, lying in bed in no distress. SKIN: Warm and dry. HEAD: Atraumatic. Normocephalic. EYES: PERRLA ENT: No nasal bleeding or discharge. Mucous membranes pink and moist. NECK: Trachea midline. No JVD. CARDIOVASCULAR: Regular rate and rhythm. RESPIRATORY: 2 L nasal cannula. Sats equal 94-95%. LEFT CT in place to Pleura- vac drainage system / waterseal - (Removed) No accessory muscle use. Lungs with slight rhonchi to auscultation in all lobes. Breath sounds equal bilaterally. No distress or dyspnea. GASTROINTESTINAL: BS + x 4 quads. Abdomen soft, non-tender, nondistended. MUSCULOSKELETAL: Extremities without cyanosis, or edema. + peripheral pulses x 4 extremities. Warm with good capillary refill and sensation. MAEW. NEUROLOGICAL: Awake and confused. Normal speech and pattern. A/P Problem List: (1) Pelvic fracture (2) Traumatic pneumothorax (3) Fall from ladder (4) Lung contusion (5) Multiple rib fractures Assessment and Plan [place]: This is a 58-year-old male who sustained a fall from approximately 20 feet off a ladder. He fell onto his back. No LOC. GCS = 14. He was originally managed closely in the ICU, however has been transferred to the [facility] floor. Hx: EtOH abuse INJURIES: Multiple LEFT rib fxs LEFT PTX Tiny LEFT hempPTX (w/ CT LEFT lower lobe contusion (spinal stenosis C6-C7) (Disk protrusion C7-T1- spinal stenosis) LEFT S2-S3 foramen fx (mild displaced) BILAT superior and inferior pubic rami fx (non-op) LEFT sacral Fx (non-op) LEFT acetabulum fx (non-displaced) (non-op) Procedures: CT pigtail with IR 12/05: LEFT VATS with thoracotomy; LEFT decortication and empyema removal. 12/09: DC chest tube #2 12/12: DC CT #1 Consults: CCM, orthopedics, IR, HEPAS. Diet: Regular diet. Tolerating po diet. Encourage good po intake with each meal. Pulmonary: O2 2L NC. Encourage good pulmonary toileting. IS at bedside and pt encouraged to use. Acapella and a EZpap in place. Rationale for use and the importance of use explained to patient at the bedside. All verbalized understanding. Duonebs q [address] #1 removed at the bedside at 11:35 AM without incident. Vaseline gauze and 4 x 4 dressing applied with Elastoplast tape. Follow-up chest x-ray in the morning. PAIN Management: Percocet po. Morphine IV PRN for breakthrough pain . Robaxin po. Neurontin 300mg TID. (Melatonin HS) HTN management: Lopressor, and lisinopril, clonidine PRN. IV antibiotics: Levaquin po. Flagyl po. Vanco IV. Activity: OOB with assist. PT and OT ordered. (WBAT RLE; TTWB LLE) GI prophylaxis: Protonix po. Bowel regimen: Roseanne-colace and MOM. Lactulose q day. BM x 1. DVT prophylaxis: Mechanical VTE with SCDs. Chemical management with Lovenox 40 q day DC Planning: Case management consulted for assistance with final discharge disposition. [facility] is following the patient for admission. Insurance authorization should be submitted tomorrow/Tuesday. Emotional support provided to patient at bedside and plan of care discussed. Discussed with RN at bedside. Patient is hemodynamically stable and being managed on the med/surg floor. Problem Qualifiers (1) Pelvic fracture: Qualified Code: S32.810A - Multiple closed fractures of pelvis with stable disruption of pelvic nenana, initial encounter (2) Traumatic pneumothorax: Qualified Code: S27.0XXA - Traumatic pneumothorax, initial encounter (3) Fall from ladder: Qualified Code: W11.XXXA - Fall from ladder, initial encounter (4) Lung contusion: Qualified Code: S27.321A - Contusion of left lung, initial encounter (5) Multiple rib fractures: Qualified Code: S22.42XA - Closed fracture of multiple ribs of left side, initial encounter Shoshana Donovan Dec 12, 2016 10:59
[2016-12-12] MEDS: PANTOPRAZOLE SOD 40 MG DELAYED RELEASE TAB PO SCH (12:40)
[2016-12-12] MEDS: ENOXAPARIN SODIUM 40 MG/0.4 ML SYRINGE SQ SCH (12:40)
[2016-12-12 12:47] VITALS: BP 129/60; PULSE 78; RESP 20; TEMP 98.1; O2SAT 96
[2016-12-12 16:35] VITALS: BP 158/70; PULSE 93; RESP 20; TEMP 99.1; O2SAT 94
--- NOTE | 2016-12-12 18:10 | HHI.IDPN ---
Subjective Subjective Remarks is a 61 y/o CM who was admitted as a trauma alert after he fell off a ladder ~ [place]. He sustained multiple left-sided rib fractures with hemopneumothorax. He underwent placement of Chest tube and eventually this was not draining much. Concern for empyema lead to a left side VATS and placement of new CTs x 2. Cultures from VATS are pending at this time and no growth so far. He also was seen by ortho for multiple pelvic fractures including sacral fracture and nondisplaced acetabular fracture. Throughout his ICU stay patient has had fever on 1 day of 101 on which lead to VATS. Patient has been on Zosyn IV and Vanco IV and ID is consulted to help evaluate for possible empyema and antibiotic management. Overnight events are reviewed. No fever No rash No diarrhea. Patient reports his chest tube was removed today. Antibiotics Levaquin Flagyl Vanco IV Lines Line sites with no evidence of infection. Past Medical History Reviewed. Allergies: Coded Allergies: Penicillin (Verified Allergy, Unknown, Hives, 12/06/16) Pt reports hives but tolerated 2 doses of Zosyn IV on 12/05/16. Objective . Vital Signs Date Time Temp Pulse Resp B/P Pulse Ox O2 Delivery O2 Flow Rate FiO2 12/12/16 16:35 99.1 93 20 158/70 94 12/12/16 12:47 98.1 78 20 129/60 96 12/12/16 08:18 97.6 85 20 194/85 12/12/16 04:03 98.6 83 20 145/68 93 12/12/16 00:38 98.9 87 20 184/69 92 12/11/16 20:10 98.2 97 18 175/76 94 12/11/16 20:00 Room Air 12/11/16 12/11/16 12/12/16 15:00 23:00 07:00 Intake Total 960 ml Output Total 805 ml 500 ml Balance 155 ml -500 ml Intake Oral 960 ml Output Urine Total 800 ml 500 ml Chest Tube Drainage Total 5 ml # Bowel Movements 0 . Laboratory Tests Test 12/12/16 07:25 White Blood Count 11.1 TH/MM3 Red Blood Count 2.46 MIL/MM3 Hemoglobin 8.7 GM/DL Hematocrit 25.5 % Mean Corpuscular Volume 103.9 FL Mean Corpuscular Hemoglobin 35.3 PG Mean Corpuscular Hemoglobin 34.0 % Concent Red Cell Distribution Width 14.6 % Platelet Count 262 TH/MM3 Mean Platelet Volume 8.3 FL Neutrophils (%) (Auto) 73.3 % Lymphocytes (%) (Auto) 10.9 % Monocytes (%) (Auto) 9.0 % Eosinophils (%) (Auto) 1.7 % Basophils (%) (Auto) 5.1 % Neutrophils # (Auto) 8.2 TH/MM3 Lymphocytes # (Auto) 1.2 TH/MM3 Monocytes # (Auto) 1.0 TH/MM3 Eosinophils # (Auto) 0.2 TH/MM3 Basophils # (Auto) 0.6 TH/MM3 CBC Comment DIFF FINAL Differential Comment Laboratory Tests Test 12/12/16 07:25 Sodium Level 135 MEQ/L Potassium Level 4.1 MEQ/L Chloride Level 102 MEQ/L Carbon Dioxide Level 22.4 MEQ/L Anion Gap 11 MEQ/L Blood Urea Nitrogen 18 MG/DL Creatinine 0.93 MG/DL Estimat Glomerular Filtration 82 ML/MIN Rate Random Glucose 107 MG/DL Calcium Level 7.6 MG/DL Magnesium Level 1.9 MG/DL Total Bilirubin 0.6 MG/DL Aspartate Amino Transf 113 U/L (AST/SGOT) Alanine Aminotransferase 68 U/L (ALT/SGPT) Alkaline Phosphatase 221 U/L Total Protein 5.7 GM/DL Albumin 1.4 GM/DL Imaging Last Impressions Chest X-Ray 12/07/16 0600 Signed Impressions: Service Date/Time: Wednesday, December 07, 2016 04:00 - CONCLUSION: 1. Patchy alveolar disease characteristic of edema or pneumonia. There has been no significant change when compared to the prior exam. 2. There is no evidence of pneumothorax. Mario Owen MD Chest CT 12/03/16 0000 Signed Impressions: Service Date/Time: Saturday, December 03, 2016 21:59 - CONCLUSION: 1. Left chest tube is present with the tip of the chest tube mostly above loculated air and fluid in the left pleural space. Cannot exclude a left-sided empyema. Patchy bronchopneumonia also suspected, right greater than left. Zachery Aquino MD Pelvis X-Ray 11/30/16 0000 Signed Impressions: Service Date/Time: Wednesday, November 30, 2016 10:32 - CONCLUSION: 1. Bilateral pubic rami fractures. 2. Apparent nondisplaced fracture through the left sacrum. Jovan Chu MD Chest Tube Insertion 11/30/16 0000 Signed Impressions: Service Date/Time: Wednesday, November 30, 2016 09:48 - CONCLUSION: Uncomplicated chest tube placement as above. Drake Croona MD Head CT 11/25/161950 Signed Impressions: Service Date/Time: November 20:06 - CONCLUSION: Motion degraded study without convincing evidence of acute intracranial hemorrhage. Followup noncontrasted head CT suggested in 24 hours. Neel Moyer MD Cervical Spine CT 11/25/161950 Signed Impressions: Service Date/Time: November 20:06 - CONCLUSION: 1. No fracture or subluxation of the cervical spine. 2. Degenerative changes with a chronic appearing disc osteophyte complex and uncovertebral/facet osteoarthritis causing severe spinal and bilateral foraminal stenosis at C6-C7. 3. Small, age-indeterminate posterior disc protrusion at C7/T1 causing mild spinal stenosis. Neel Moyer MD Abdomen/Pelvis CT 11/25/161950 Signed Impressions: Service Date/Time: November 20:10 - CONCLUSION: 1. No evidence of acute visceral or injury. 2. Fractures of the left body and ala of the sacrum with mildly displaced fracturing in the region of the left S2/S3 foramen. 3. Bilateral superior and inferior pubic rami fractures and a nondisplaced fracture of the left acetabulum. 4. Small presacral and left iliopsoas hematomas. I don't see active bleeding. Neel Moyer MD Thoracic Spine CT 11/25/16 0000 Signed Impressions: Service Date/Time: November 20:10 - CONCLUSION: Left T12 transverse process and facet fracture, minimally displaced. Multiple left posterior rib fractures and placed refer to the chest CT report. Thoracic vertebral bodies are intact. No subluxations. Neel Moyer MD Lumbar Spine CT 11/25/16 0000 Signed Impressions: Service Date/Time: November 20:10 - CONCLUSION: 1. Minimally to mildly displaced left transverse process fractures of L1-L4. 2. Multilevel degenerative changes as above. Large right paracentral disc fragment at L4/L5, probably nonacute. Neel Moyer MD Physical Exam GENERAL: This is a well-nourished, well-developed patient, in no apparent distress. SKIN: Multiple bruising and ecchymosis noted. HEAD: Atraumatic. Normocephalic. No temporal or scalp tenderness. EYES: Pupils equal round and reactive. Extraocular motions intact. No scleral icterus. No injection or drainage. ENT: Nose without bleeding, purulent drainage or septal hematoma. Throat without erythema, tonsillar hypertrophy or exudate. Uvula midline. Airway patent. NECK: Trachea midline. Supple, nontender, no meningeal signs. CARDIOVASCULAR: HS audible no murmur appreciated. RESPIRATORY: Clear to auscultation. Breath sounds equal bilaterally. GASTROINTESTINAL: Abdomen soft, non-tender, nondistended. MUSCULOSKELETAL: Extremities without clubbing, cyanosis, or edema. No joint tenderness, effusion, or edema noted. No calf tenderness. Negative Homans sign bilaterally. NEUROLOGICAL: Awake and alert. Grossly non focal Psych: cooperative IV line sites with no e/o infection/. Assessment & Plan Remarks Hemothorax with organized hematoma. Empyema. Anaerobic gram positive organism. Empyema. Multiple left side rub fractures s/p VATS. Sacral fracture with non displaced acetabular fracture. HTN h/o multiple spine surgeries with hardware in place Recs: Continue Levaquin oral Continue Flagyl oral. Discontinue vancomycin IV Follow cultures, follow susceptibility results from [facility]. Follow clinically. Jenelle Boyd MD Dec 12, 2016 18:10
[2016-12-12 20:10] VITALS: BP 144/71; PULSE 99; RESP 18; TEMP 98.5; O2SAT 93
[2016-12-12] MEDS: REMOVE OLD NICODERM (NICOTINE) PATCH TD SCH (20:14)
[2016-12-12] MEDS: MELATONIN 5 MG TAB PO PRN (22:47)
[2016-12-13] VITALS (9 sets, daily range): BP systolic 144–190; BP diastolic 62–91; PULSE 85–110; RESP 18–20; TEMP 98.7–100.6; O2SAT 85–95
[2016-12-13] MEDS: oxyCODONE/ACETAMINOPHEN 10 MG/325 MG TAB PO PRN ×4 (02:52→15:50)
[2016-12-13] MEDS: MORPHINE SULFATE 4 MG/ML INJ IV PUSH PRN (04:06)
--- NOTE | 2016-12-13 06:34 | RADRPT ---
EXAM DATE/TIME: 12/13/2016 05:52 [place] COMPARISON: CHEST SINGLE AP, December 12, 2016, 5:13. INDICATIONS : Evaluate let lung , chest tube removed yesterday, pain left shoulder MEDICAL HISTORY : hemothorax, pneumothorax SURGICAL HISTORY : thoracotomy, chest tubes, cervical fusion ENCOUNTER: Subsequent ACUITY: 2 weeks PAIN SCORE: 0/10 LOCATION: Bilateral chest FINDINGS: The heart size is normal. There's increased density in the right upper lung and at the bases bilatera lly. There is a mild right pleural effusion. Left-sided rib fractures are present. Surgical hardware seen in the cervical spine. CONCLUSION: Bilateral areas of consolidation as described above. There is also at least a mild left pleural effus ion. Neel Tapia MD on December 13, 2016 at 6:31 Board Certified Radiologist. This report was verified electronically.
[2016-12-13] MEDS: metroNIDAZOLE 500 MG TAB PO SCH ×3 (07:29→21:17)
[2016-12-13] MEDS: LACTULOSE SYRUP 20 GM/30 ML CUP PO SCH (09:00)
[2016-12-13] MEDS: DOCUSATE SODIUM 50 MG/SENNA 8.6 MG TAB PO SCH ×2 (09:00→21:00)
[2016-12-13] MEDS: LEVOFLOXACIN 500 MG TAB PO SCH (09:25)
[2016-12-13] MEDS: GABAPENTIN 300 MG CAP PO SCH ×3 (09:25→18:29)
[2016-12-13] MEDS: LISINOPRIL 20 MG TAB PO SCH (09:25)
[2016-12-13] MEDS: METOPROLOL TARTRATE 50 MG TAB PO SCH ×2 (09:25→21:17)
[2016-12-13] MEDS: NICOTINE 14 MG/24 HR PATCH TD SCH (09:26)
[2016-12-13] MEDS: SODIUM CHLORIDE 0.9% FLUSH 5 ML FLUSH IVF SCH ×2 (09:27→21:00)
[2016-12-13] MEDS: ENOXAPARIN SODIUM 40 MG/0.4 ML SYRINGE SQ SCH (11:19)
--- NOTE | 2016-12-13 12:10 | HHI.PR ---
Subjective Subjective Notes Complains of left shoulder pain and decreased range of motion. Reports he pulled himself up using the trapeze bar and it has been painful since. Still having difficulty getting OOB, working with PT Objective Vitals/I&O Vital Signs Date Time Temp Pulse Resp B/P Pulse Ox O2 Delivery O2 Flow Rate FiO2 12/13/16 09:32 Room Air 12/13/16 07:40 100.6 110 20 190/82 90 12/10/16 19:45 2.00 21 Labs Laboratory Tests Test 12/09/16 12/10/16 12/12/16 10:15 05:49 07:25 Vancomycin Level Trough 14.2 MCG/ML Differential Total Cells 100 Counted Neutrophils % (Manual) 80 % Band Neutrophils % 4 % Lymphocytes % 6 % Monocytes % 7 % Eosinophils % 2 % Neutrophils # (Manual) 10.2 TH/MM3 Myelocytes 1 % Platelet Estimate NORMAL Platelet Morphology Comment NORMAL Polychromasia 2.1 % White Blood Count 11.1 TH/MM3 Red Blood Count 2.46 MIL/MM3 Hemoglobin 8.7 GM/DL Hematocrit 25.5 % Mean Corpuscular Volume 103.9 FL Mean Corpuscular Hemoglobin 35.3 PG Mean Corpuscular Hemoglobin 34.0 % Concent Red Cell Distribution Width 14.6 % Platelet Count 262 TH/MM3 Mean Platelet Volume 8.3 FL Neutrophils (%) (Auto) 73.3 % Lymphocytes (%) (Auto) 10.9 % Monocytes (%) (Auto) 9.0 % Eosinophils (%) (Auto) 1.7 % Basophils (%) (Auto) 5.1 % Neutrophils # (Auto) 8.2 TH/MM3 Lymphocytes # (Auto) 1.2 TH/MM3 Monocytes # (Auto) 1.0 TH/MM3 Eosinophils # (Auto) 0.2 TH/MM3 Basophils # (Auto) 0.6 TH/MM3 CBC Comment DIFF FINAL Differential Comment Sodium Level 135 MEQ/L Potassium Level 4.1 MEQ/L Chloride Level 102 MEQ/L Carbon Dioxide Level 22.4 MEQ/L Anion Gap 11 MEQ/L Blood Urea Nitrogen 18 MG/DL Creatinine 0.93 MG/DL Estimat Glomerular Filtration 82 ML/MIN Rate Random Glucose 107 MG/DL Calcium Level 7.6 MG/DL Magnesium Level 1.9 MG/DL Total Bilirubin 0.6 MG/DL Aspartate Amino Transf 113 U/L (AST/SGOT) Alanine Aminotransferase 68 U/L (ALT/SGPT) Alkaline Phosphatase 221 U/L Total Protein 5.7 GM/DL Albumin 1.4 GM/DL Radiology Last Impressions Chest X-Ray 11/27/16 0600 Signed Impressions: Service Date/Time: Sunday, November 27, 2016 06:05 - CONCLUSION: 1. Left chest tube remains present and no pneumothorax is visualized. 2. There is a small left pleural effusion with associated volume loss and/or consolidation at the lung base. Neel Mahan MD Pelvis X-Ray 11/25/161950 Signed Impressions: Service Date/Time: November 19:44 - CONCLUSION: Bilateral pubic rami and left sacral fractures. Neel Moyer MD Head CT 11/25/161950 Signed Impressions: Service Date/Time: November 20:06 - CONCLUSION: Motion degraded study without convincing evidence of acute intracranial hemorrhage. Followup noncontrasted head CT suggested in 24 hours. Neel Moyer MD Chest CT 11/25/161950 Signed Impressions: Service Date/Time: November 20:10 - CONCLUSION: Multiple left rib fractures with moderate left pneumothorax, tiny left hemothorax and probable contusion of the left lower lobe. Neel Moyer MD Cervical Spine CT 11/25/161950 Signed Impressions: Service Date/Time: November 20:06 - CONCLUSION: 1. No fracture or subluxation of the cervical spine. 2. Degenerative changes with a chronic appearing disc osteophyte complex and uncovertebral/facet osteoarthritis causing severe spinal and bilateral foraminal stenosis at C6-C7. 3. Small, age-indeterminate posterior disc protrusion at C7/T1 causing mild spinal stenosis. Neel Moyer MD Abdomen/Pelvis CT 11/25/161950 Signed Impressions: Service Date/Time: November 20:10 - CONCLUSION: 1. No evidence of acute visceral or injury. 2. Fractures of the left body and ala of the sacrum with mildly displaced fracturing in the region of the left S2/S3 foramen. 3. Bilateral superior and inferior pubic rami fractures and a nondisplaced fracture of the left acetabulum. 4. Small presacral and left iliopsoas hematomas. I don't see active bleeding. Neel Moyer MD Thoracic Spine CT 11/25/16 0000 Signed Impressions: Service Date/Time: November 20:10 - CONCLUSION: Left T12 transverse process and facet fracture, minimally displaced. Multiple left posterior rib fractures and placed refer to the chest CT report. Thoracic vertebral bodies are intact. No subluxations. Neel Moyer MD Lumbar Spine CT 11/25/16 Signed Impressions: Service Date/Time: November 20:10 - CONCLUSION: 1. Minimally to mildly displaced left transverse process fractures of L1-L4. 2. Multilevel degenerative changes as above. Large right paracentral disc fragment at L4/L5, probably nonacute. Neel Moyer MD Narrative Exam GENERAL: 61 year old disheveled male lying in bed. SKIN: Warm and dry. NECK: Trachea midline. No JVD. CARDIOVASCULAR: Regular rate and rhythm. RESPIRATORY: Lungs clear and diminished to auscultation. No accessory muscle use. GASTROINTESTINAL: Abdomen soft, non-distended and no tenderness to palpation. + BS. MUSCULOSKELETAL: Extremities without cyanosis, or edema. No obvious deformities. NEUROLOGICAL: Awake and alert. Normal speech. A/P Problem List: (1) Pelvic fracture (2) Traumatic pneumothorax (3) Fall from ladder (4) Lung contusion (5) Multiple rib fractures Assessment and Plan INJURIES: Multiple LEFT rib fxs LEFT PTX Tiny LEFT hemoPTX LEFT lower lobe contusion LEFT S2-S3 foramen fx (mild displaced) BILAT superior and inferior pubic rami fx (non-op) LEFT sacral Fx (non-op) LEFT acetabulum fx (non-displaced) (non-op) Diet: Regular, tolerating Pulm: IS, acapella, EZpap. Nebs. SPO2 low, placed back on 2 L nasal cannula. Pain; Percocet. Morphine IV. Robaxin. Neurontin 300 TID. (Ambien) Activity: OOB. PT and OT evaluating. (WBAT RLE; TTWB LLE). Ambulating max of 5 feet with physical therapy. GI: Pepcid Bowel: Roseanne-colace. MOM. LBM 12/11 DVT: SCD's. Lovenox. X-ray LEFT shoulder for new onset pain. Hospitalist consulted for BP management. CXR reviewed. Consolidation noted in bilateral lower lobes. Continue IS and increasing mobility. Tmax 100.6. Antibiotics per infectious disease. Appreciate input. Plan of care discussed with patient at bedside. Case management consulted for discharge planning. Patient will need rehabilitation versus SNF. [facility] is evaluating patient for placement. Plan for discharge 1-2 days. The exam, history, and the medical decision-making described in the above note were completed with the assistance of the mid-level provider. I reviewed and agree with the findings presented. I attest that I had a [id number] encounter with the patient on the same day, and personally performed and documented my assessment and findings in the medical record. Problem Qualifiers (1) Pelvic fracture: Qualified Code: S32.810A - Multiple closed fractures of pelvis with stable disruption of pelvic [place], initial encounter (2) Traumatic pneumothorax: Qualified Code: S27.0XXA - Traumatic pneumothorax, initial encounter (3) Fall from ladder: Qualified Code: W11.XXXA - Fall from ladder, initial encounter (4) Lung contusion: Qualified Code: S27.321A - Contusion of left lung, initial encounter (5) Multiple rib fractures: Qualified Code: S22.42XA - Closed fracture of multiple ribs of left side, initial encounter Ni Serrano Dec 13, 2016 12:10 Tyshawn Hollins MD Dec 13, 2016 19:23
--- NOTE | 2016-12-13 12:23 | HHI.PR ---
Subjective Remarks Reports left shoulder pain today. Otherwise no new complaints. Known history of osteoarthritis involving the shoulder. He has had issues with it in the past. Objective Vitals Vital Signs Date Time Temp Pulse Resp B/P Pulse Ox O2 Delivery O2 Flow Rate FiO2 12/13/16 11:10 99.0 93 20 166/73 85 12/13/16 09:32 Room Air 12/13/16 07:40 100.6 110 20 190/82 90 12/13/16 04:19 99.8 102 20 153/79 93 12/13/16 04:10 Room Air 12/13/16 00:22 99.1 85 18 144/62 92 12/12/16 20:10 98.5 99 18 144/71 93 12/12/16 16:35 99.1 93 20 158/70 94 12/12/16 12:47 98.1 78 20 129/60 96 I/O 12/12/16 12/12/16 12/12/16 12/13/16 12/13/16 12/13/16 07:00 15:00 23:00 07:00 15:00 23:00 Intake Total 480 ml Output Total 500 ml 300 ml Balance -500 ml 480 ml -300 ml Intake Oral 480 ml Output Urine Total 500 ml 300 ml Result Diagram: 12/12/1672412/12/16724 Objective Remarks GENERAL: Patient is in no acute distress. CARDIOVASCULAR: Normal rate and regular rhythm without murmurs, gallops, or rubs. RESPIRATORY: Diminished breath sounds on the left. Chest tube has been removed. Dressing appear intact. Diminished breath sounds on the right. No wheezing. GASTROINTESTINAL: Abdomen soft, non-tender, non-distended. Normal active bowel sounds MUSCULOSKELETAL: Extremities without cyanosis, or edema. NEURO: Awake and alert. Moves all ext x4. Generalized weakness. PSYCH: Calm A/P Problem List: (1) Multiple rib fractures ICD Code: S22.49XA Status: Acute (2) Lung contusion ICD Code: S27.329A Status: Acute (3) Fall from ladder ICD Code: W11.XXXA Status: Acute (4) Traumatic pneumothorax ICD Code: S27.0XXA Status: Acute (5) Pelvic fracture ICD Code: S32.9XXA Status: Acute (6) HTN (hypertension) ICD Code: I10 Status: Acute (7) EtOH dependence ICD Code: F10.20 Status: Acute Assessment and Plan 58-year-old gentleman reportedly fell 20 feet off of a ladder onto his back without loss of consciousness. He may have been drinking. He was brought in as a trauma alert. Patient arrived alert with mild confusion his [place] Coma Scale was 14 complaining of back pain and left chest pain. Patient had multiple left-sided rib fractures with hemopneumothorax. Patient also had multiple pelvic fractures with sacral fracture nondisplaced acetabular fracture. Initially managed in critical care, improving clinically and was transferred to medical-surgical floor. Hospitalist service following for medical management. Trauma team as primary. EtOH abuse, dependence - S/P [facility] protocol. Patient went through DTs. Patient was counseled about complete cessation. Pneumonia/Left Lung empyema:s/p VATS, thoracotomy and decortication with evacuation of left empyema 12/05/16. Continue with Diflucan IV, Zosyn and Vancomycin. Management per ID and CTS. monitor cultures. Percocet 10mg every 4H breakthrough and Neurontin 300 mg 3 times a day added. Chest tube removed - Nebulizer treatments scheduled. - Monitor respiratory status. Macrocytic anemia - secondary to EtOH dependence - Thiamine, folate Status post fall, multiple rib fractures, pubic rib fractures, pelvic fractures with sacral fracture nondisplaced acetabular fracture - Orthopedic following patient. Weightbearing status was ordered. Recommended toe-touch weightbearing on the left leg. - Pain management. Patient with chronic pain even prior to this hospitalization. Pain is better controlled. Left shoulder pain: Likely osteoarthritis flare. Continue with pain control. Tobacco use -nicotine patch HTN : Labile BP, continue Lopressor 50 mg twice a day and lisinopril to 20 mg daily. clonidine as needed and Vasotec when necessary. Prophylaxis: DVT prop B-SCDs GI: famotidine Problem Qualifiers (1) Multiple rib fractures: Qualified Code: S22.42XA - Closed fracture of multiple ribs of left side, initial encounter (2) Lung contusion: Qualified Code: S27.321A - Contusion of left lung, initial encounter (3) Fall from ladder: Qualified Code: W11.XXXA - Fall from ladder, initial encounter (4) Traumatic pneumothorax: Qualified Code: S27.0XXA - Traumatic pneumothorax, initial encounter (5) Pelvic fracture: Qualified Code: S32.810A - Multiple closed fractures of pelvis with stable disruption of pelvic [place], initial encounter Simon Lomax MD Dec 13, 2016 12:23
[2016-12-13] MEDS: MORPHINE SULFATE 4 MG/ML INJ IV PRN ×2 (13:05→21:19)
[2016-12-13] MEDS: PANTOPRAZOLE SOD 40 MG DELAYED RELEASE TAB PO SCH (13:05)
--- NOTE | 2016-12-13 14:57 | RADRPT ---
EXAM DATE/TIME: 12/13/2016 13:51 [facility] COMPARISON: CHEST SINGLE AP, December 13, 2016, 5:52. INDICATIONS : Left shoulder pain after fall. Pain for past three days. MEDICAL HISTORY : None. SURGICAL HISTORY : None. ENCOUNTER: Initial ACUITY: 3 days PAIN SCORE: 10/10 LOCATION: Left shoulder. FINDINGS: There is no evidence for fracture. There is a small pleural effusion on the left with rib fractures evident. There is no pneumothorax. CONCLUSION: Rib fractures with a small pleural effusion on the left. There is no evidence of shou lder fracture. Ralph Garcias MD FACR on December 13, 2016 at 14:47 Board Certified Radiologist. This report was verified electronically.
[2016-12-13] MEDS: cloNIDine HCL 0.1 MG TAB PO PRN (16:40)
[2016-12-13] MEDS: REMOVE OLD NICODERM (NICOTINE) PATCH TD SCH (21:00)
[2016-12-14] VITALS (9 sets, daily range): BP systolic 142–179; BP diastolic 68–79; PULSE 75–99; RESP 16–21; TEMP 96.9–100; O2SAT 90–94
[2016-12-14] MEDS: oxyCODONE/ACETAMINOPHEN 10 MG/325 MG TAB PO PRN ×5 (05:30→21:08)
[2016-12-14] MEDS: metroNIDAZOLE 500 MG TAB PO SCH ×3 (05:31→21:08)
[2016-12-14] MEDS: MORPHINE SULFATE 4 MG/ML INJ IV PRN (06:12)
[2016-12-14] MEDS: METOPROLOL TARTRATE 50 MG TAB PO SCH ×2 (08:54→21:08)
[2016-12-14] MEDS: LEVOFLOXACIN 500 MG TAB PO SCH (08:54)
[2016-12-14] MEDS: NICOTINE 14 MG/24 HR PATCH TD SCH (08:54)
[2016-12-14] MEDS: LISINOPRIL 20 MG TAB PO SCH (08:54)
[2016-12-14] MEDS: LACTULOSE SYRUP 20 GM/30 ML CUP PO SCH (08:55)
[2016-12-14] MEDS: DOCUSATE SODIUM 50 MG/SENNA 8.6 MG TAB PO SCH ×2 (08:55→21:08)
[2016-12-14] MEDS: GABAPENTIN 300 MG CAP PO SCH (08:55)
[2016-12-14] MEDS: SODIUM CHLORIDE 0.9% FLUSH 5 ML FLUSH IVF SCH ×2 (08:56→21:00)
[2016-12-14] MEDS: ENOXAPARIN SODIUM 40 MG/0.4 ML SYRINGE SQ SCH (10:08)
[2016-12-14] MEDS: GABAPENTIN 400 MG CAP PO SCH ×2 (12:30→17:08)
--- NOTE | 2016-12-14 13:10 | HHI.PR ---
Subjective Remarks Patient reports that he is feeling generally weak. Otherwise has no new complaints. Objective Vitals Vital Signs Date Time Temp Pulse Resp B/P Pulse Ox O2 Delivery O2 Flow Rate FiO2 12/14/16 12:21 98.6 92 19 165/74 90 12/14/16 08:00 98.8 85 20 142/68 91 12/14/16 08:00 Room Air 12/14/16 07:06 75 12/14/16 04:00 100.0 88 18 179/74 93 12/14/16 00:24 98.7 99 18 168/71 94 12/13/16 20:33 98.7 97 18 167/91 91 12/13/16 19:00 94 12/13/16 17:30 96 178/75 95 12/13/16 15:35 99.4 101 20 181/78 92 I/O 12/13/16 12/13/16 12/13/16 12/14/16 12/14/16 12/14/16 07:00 15:00 23:00 07:00 15:00 23:00 Intake Total 480 ml Output Total 300 ml 800 ml 1000 ml Balance -300 ml -800 ml 480 ml -1000 ml Intake Oral 480 ml Output Urine Total 300 ml 800 ml 1000 ml # Voids 1 # Bowel Movements 1 1 1 Result Diagram: 12/12/1672412/12/16724 Objective Remarks GENERAL: Patient is in no acute distress. CARDIOVASCULAR: Normal rate and regular rhythm without murmurs, gallops, or rubs. RESPIRATORY: Diminished breath sounds on the left. Chest tube has been removed. Dressing appear intact. Diminished breath sounds on the right. No wheezing. GASTROINTESTINAL: Abdomen soft, non-tender, non-distended. Normal active bowel sounds MUSCULOSKELETAL: Extremities without cyanosis, or edema. NEURO: Awake and alert. Moves all ext x4. Generalized weakness. PSYCH: Calm A/P Problem List: (1) Multiple rib fractures ICD Code: S22.49XA Status: Acute (2) Lung contusion ICD Code: S27.329A Status: Acute (3) Fall from ladder ICD Code: W11.XXXA Status: Acute (4) Traumatic pneumothorax ICD Code: S27.0XXA Status: Acute (5) Pelvic fracture ICD Code: S32.9XXA Status: Acute (6) HTN (hypertension) ICD Code: I10 Status: Acute (7) EtOH dependence ICD Code: F10.20 Status: Acute Assessment and Plan 58-year-old gentleman reportedly fell 20 feet off of a ladder onto his back without loss of consciousness. He may have been drinking. He was brought in as a trauma alert. Patient arrived alert with mild confusion his [place] Coma Scale was 14 complaining of back pain and left chest pain. Patient had multiple left-sided rib fractures with hemopneumothorax. Patient also had multiple pelvic fractures with sacral fracture nondisplaced acetabular fracture. Initially managed in critical care, improving clinically and was transferred to medical-surgical floor. Hospitalist service following for medical management. Trauma team as primary. EtOH abuse, dependence - S/P [facility] protocol. Patient went through DTs. Patient was counseled about complete cessation. Pneumonia/Left Lung empyema:s/p VATS, thoracotomy and decortication with evacuation of left empyema 12/05/16. Continue with Diflucan IV, Zosyn and Vancomycin. Management per ID and CTS. monitor cultures. Percocet 10mg every 4H breakthrough and Neurontin 300 mg 3 times a day added. Chest tube removed. No pneumothorax. - Nebulizer treatments scheduled. - Monitor respiratory status. Macrocytic anemia - secondary to EtOH dependence - Thiamine, folate Status post fall, multiple rib fractures, pubic rib fractures, pelvic fractures with sacral fracture nondisplaced acetabular fracture - Orthopedic following patient. Weightbearing status was ordered. Recommended toe-touch weightbearing on the left leg. - Pain management. Patient with chronic pain even prior to this hospitalization. Pain is better controlled. Left shoulder pain: Likely osteoarthritis flare. Continue with pain control. Tobacco use -nicotine patch HTN : Labile BP, continue Lopressor 50 mg twice a day and lisinopril to 20 mg daily. clonidine as needed and Vasotec when necessary. Prophylaxis: DVT prop B-SCDs GI: famotidine Problem Qualifiers (1) Multiple rib fractures: Qualified Code: S22.42XA - Closed fracture of multiple ribs of left side, initial encounter (2) Lung contusion: Qualified Code: S27.321A - Contusion of left lung, initial encounter (3) Fall from ladder: Qualified Code: W11.XXXA - Fall from ladder, initial encounter (4) Traumatic pneumothorax: Qualified Code: S27.0XXA - Traumatic pneumothorax, initial encounter (5) Pelvic fracture: Qualified Code: S32.810A - Multiple closed fractures of pelvis with stable disruption of pelvic [place], initial encounter Simon Lomax MD Dec 14, 2016 13:09
--- NOTE | 2016-12-14 13:20 | HHI.PR ---
Addendum to Inpatient Note Addendum Reason: Additional Documentation Additional Information Discussed with SECONDS INSPECTOR: Ok to DC on oral flagyl for 2 weeks. Ok to DC Levaquin. [facility] susceptibilities for Empyema fluid need to be followed. Please call me when results available. Will sign off please call back if any change in clinical condition or questions. Jenelle Boyd MD Dec 14, 2016 13:20
[2016-12-14] MEDS ORDERED: NEUR400C PO (15:24)
--- NOTE | 2016-12-14 15:42 | HHI.PR ---
Subjective Subjective Notes Discharge to [place], awaiting insurance auth Pain controlled. Objective Vitals/I&O Vital Signs Date Time Temp Pulse Resp B/P Pulse Ox O2 Delivery O2 Flow Rate FiO2 12/14/16 12:21 98.6 92 19 165/74 90 12/14/16 08:00 Room Air 12/10/16 19:45 2.00 21 Radiology Last Impressions Chest X-Ray 11/27/16 0600 Signed Impressions: Service Date/Time: Sunday, November 27, 2016 06:05 - CONCLUSION: 1. Left chest tube remains present and no pneumothorax is visualized. 2. There is a small left pleural effusion with associated volume loss and/or consolidation at the lung base. Neel Mahan MD Pelvis X-Ray 11/25/161950 Signed Impressions: Service Date/Time: November 19:44 - CONCLUSION: Bilateral pubic rami and left sacral fractures. Neel Moyer MD Head CT 11/25/161950 Signed Impressions: Service Date/Time: November 20:06 - CONCLUSION: Motion degraded study without convincing evidence of acute intracranial hemorrhage. Followup noncontrasted head CT suggested in 24 hours. Neel Moyer MD Chest CT 11/25/161950 Signed Impressions: Service Date/Time: November 20:10 - CONCLUSION: Multiple left rib fractures with moderate left pneumothorax, tiny left hemothorax and probable contusion of the left lower lobe. Neel Moyer MD Cervical Spine CT 11/25/161950 Signed Impressions: Service Date/Time: November 20:06 - CONCLUSION: 1. No fracture or subluxation of the cervical spine. 2. Degenerative changes with a chronic appearing disc osteophyte complex and uncovertebral/facet osteoarthritis causing severe spinal and bilateral foraminal stenosis at C6-C7. 3. Small, age-indeterminate posterior disc protrusion at C7/T1 causing mild spinal stenosis. Neel Moyer MD Abdomen/Pelvis CT 11/25/161950 Signed Impressions: Service Date/Time: November 20:10 - CONCLUSION: 1. No evidence of acute visceral or injury. 2. Fractures of the left body and ala of the sacrum with mildly displaced fracturing in the region of the left S2/S3 foramen. 3. Bilateral superior and inferior pubic rami fractures and a nondisplaced fracture of the left acetabulum. 4. Small presacral and left iliopsoas hematomas. I don't see active bleeding. Neel Moyer MD Thoracic Spine CT 11/25/16 0000 Signed Impressions: Service Date/Time: November 20:10 - CONCLUSION: Left T12 transverse process and facet fracture, minimally displaced. Multiple left posterior rib fractures and placed refer to the chest CT report. Thoracic vertebral bodies are intact. No subluxations. Neel Moyer MD Lumbar Spine CT 11/25/16 0000 Signed Impressions: Service Date/Time: November 20:10 - CONCLUSION: 1. Minimally to mildly displaced left transverse process fractures of L1-L4. 2. Multilevel degenerative changes as above. Large right paracentral disc fragment at L4/L5, probably nonacute. Neel Moyer MD Narrative Exam GENERAL: 61 year old disheveled male lying in bed. SKIN: Warm and dry. NECK: Trachea midline. No JVD. CARDIOVASCULAR: Regular rate and rhythm. RESPIRATORY: Lungs clear and diminished to auscultation. No accessory muscle use. GASTROINTESTINAL: Abdomen soft, non-distended and no tenderness to palpation. + BS. MUSCULOSKELETAL: Extremities without cyanosis, or edema. No obvious deformities. NEUROLOGICAL: Awake and alert. Normal speech. A/P Problem List: (1) Pelvic fracture (2) Traumatic pneumothorax (3) Fall from ladder (4) Lung contusion (5) Multiple rib fractures Assessment and Plan INJURIES: Multiple LEFT rib fxs LEFT PTX Tiny LEFT hemoPTX LEFT lower lobe contusion LEFT S2-S3 foramen fx (mild displaced) BILAT superior and inferior pubic rami fx (non-op) LEFT sacral Fx (non-op) LEFT acetabulum fx (non-displaced) (non-op) Diet: Regular, tolerating Pulm: IS, acapella, EZpap. Nebs. 2 L nasal cannula. Pain; Percocet. Robaxin. Neurontin Activity: OOB. PT and OT evaluating. (WBAT RLE; TTWB LLE). GI: Pepcid Bowel: Roseanne-colace. MOM. LBM 12/14 DVT: SCD's. Lovenox. X-ray LEFT shoulder negative for fracture. Hospitalist consulted for BP management. Discussed discharge plan with Dr. Boyd. She wants to patient discharge on PO Flagyl 2 weeks. Patient with resistant gram-positive cocci from chest wound, no susceptibility report available from our lab. Follow up microbiology report sent to [facility] for susceptibility and call Dr. Boyd with the results. Plan of care discussed with patient at bedside. Case management consulted for discharge planning. [facility] has accepted the patient, awaiting insurance authorization. Patient is clear from trauma surgery standpoint to safely discharge to inpatient rehabilitation. The exam, history, and the medical decision-making described in the above note were completed with the assistance of the mid-level provider. I reviewed and agree with the findings presented. I attest that I had a [id number] encounter with the patient on the same day, and personally performed and documented my assessment and findings in the medical record. Problem Qualifiers (1) Pelvic fracture: Qualified Code: S32.810A - Multiple closed fractures of pelvis with stable disruption of pelvic [place], initial encounter (2) Traumatic pneumothorax: Qualified Code: S27.0XXA - Traumatic pneumothorax, initial encounter (3) Fall from ladder: Qualified Code: W11.XXXA - Fall from ladder, initial encounter (4) Lung contusion: Qualified Code: S27.321A - Contusion of left lung, initial encounter (5) Multiple rib fractures: Qualified Code: S22.42XA - Closed fracture of multiple ribs of left side, initial encounter Ni Serrano Dec 14, 2016 15:42 Tyshawn Hollins MD Dec 28, 2016 20:34
[2016-12-14] MEDS: METHOCARBAMOL 500 MG TAB PO SCH (17:08)
[2016-12-14] MEDS: REMOVE OLD NICODERM (NICOTINE) PATCH TD SCH (21:00)
[2016-12-14] MEDS: FAMOTIDINE 20 MG TAB PO SCH (21:08)
[2016-12-15] VITALS (7 sets, daily range): BP systolic 127–172; BP diastolic 68–80; PULSE 79–98; RESP 20–22; TEMP 96.2–98.6; O2SAT 90–95
[2016-12-15] MEDS: MELATONIN 5 MG TAB PO PRN (01:37)
[2016-12-15] MEDS: metroNIDAZOLE 500 MG TAB PO SCH ×3 (05:19→21:39)
[2016-12-15] MEDS: oxyCODONE/ACETAMINOPHEN 10 MG/325 MG TAB PO PRN ×5 (05:20→21:48)
[2016-12-15] MEDS: FAMOTIDINE 20 MG TAB PO SCH ×2 (09:00→21:38)
[2016-12-15] MEDS: DOCUSATE SODIUM 50 MG/SENNA 8.6 MG TAB PO SCH ×2 (09:00→21:38)
[2016-12-15] MEDS: LACTULOSE SYRUP 20 GM/30 ML CUP PO SCH (09:00)
[2016-12-15] MEDS: NICOTINE 14 MG/24 HR PATCH TD SCH (09:03)
[2016-12-15] MEDS: METOPROLOL TARTRATE 50 MG TAB PO SCH ×2 (09:04→21:39)
[2016-12-15] MEDS: LISINOPRIL 20 MG TAB PO SCH (09:04)
[2016-12-15] MEDS: LEVOFLOXACIN 500 MG TAB PO SCH (09:04)
[2016-12-15] MEDS: GABAPENTIN 400 MG CAP PO SCH ×3 (09:05→17:48)
[2016-12-15] MEDS: METHOCARBAMOL 500 MG TAB PO SCH ×3 (09:05→17:48)
[2016-12-15] MEDS: SODIUM CHLORIDE 0.9% FLUSH 5 ML FLUSH IVF SCH ×2 (09:06→21:38)
--- NOTE | 2016-12-15 11:45 | HHI.PR ---
Subjective Remarks Patient is awaiting authorization from insurance [employer] for placement in acute rehabilitation. He reports feeling fatigued. His blood pressure has been labile and he was started on amlodipine. He denies chest pain. No increase in shortness of breath. Stable on nasal cannula. Objective Vitals Vital Signs Date Time Temp Pulse Resp B/P Pulse Ox O2 Delivery O2 Flow Rate FiO2 12/15/16 09:18 94 Nasal Cannula 2.00 12/15/16 08:00 97.3 89 20 172/80 90 12/15/16 07:49 94 Nasal Cannula 2.00 12/15/16 06:31 98.3 98 22 155/77 93 12/15/16 00:00 98.6 93 20 127/79 95 12/14/16 20:00 96.9 80 16 160/69 94 12/14/16 19:00 76 12/14/16 17:00 84 166/77 12/14/16 16:00 97.4 84 21 178/79 92 12/14/16 12:21 98.6 92 19 165/74 90 I/O 12/14/16 12/14/16 12/14/16 12/15/16 12/15/16 12/15/16 07:00 15:00 23:00 07:00 15:00 23:00 Intake Total 240 ml Output Total 1000 ml 100 ml 250 ml 300 ml Balance -1000 ml -100 ml -10 ml -300 ml Intake Oral 240 ml Output Urine Total 1000 ml 100 ml 250 ml 300 ml # Bowel Movements 1 1 0 0 Result Diagram: 12/12/1672412/12/1625 Objective Remarks GENERAL: Patient is in no acute distress. CARDIOVASCULAR: Normal rate and regular rhythm without murmurs, gallops, or rubs. RESPIRATORY: Diminished breath sounds on the left. Chest tube has been removed. Dressing appear intact. Diminished breath sounds on the right. No wheezing. GASTROINTESTINAL: Abdomen soft, non-tender, non-distended. Normal active bowel sounds MUSCULOSKELETAL: Extremities without cyanosis, or edema. NEURO: Awake and alert. Moves all ext x4. Generalized weakness. PSYCH: Calm A/P Problem List: (1) Multiple rib fractures ICD Code: S22.49XA Status: Acute (2) Lung contusion ICD Code: S27.329A Status: Acute (3) Fall from ladder ICD Code: W11.XXXA Status: Acute (4) Traumatic pneumothorax ICD Code: S27.0XXA Status: Acute (5) Pelvic fracture ICD Code: S32.9XXA Status: Acute (6) HTN (hypertension) ICD Code: I10 Status: Acute (7) EtOH dependence ICD Code: F10.20 Status: Acute Assessment and Plan 58-year-old gentleman reportedly fell 20 feet off of a ladder onto his back without loss of consciousness. He may have been drinking. He was brought in as a trauma alert. Patient arrived alert with mild confusion his [place] Coma Scale was 14 complaining of back pain and left chest pain. Patient had multiple left-sided rib fractures with hemopneumothorax. Patient also had multiple pelvic fractures with sacral fracture nondisplaced acetabular fracture. Initially managed in critical care, improving clinically and was transferred to medical-surgical floor. Hospitalist service following for medical management. Trauma team as primary. EtOH abuse, dependence - S/P CIWA protocol. Patient went through DTs. Patient was counseled about complete cessation. Pneumonia/Left Lung empyema:s/p VATS, thoracotomy and decortication with evacuation of left empyema 12/05/16. Continue with Diflucan IV, Zosyn and Vancomycin. Management per ID and CTS. monitor cultures. Percocet 10mg every 4H breakthrough and Neurontin 300 mg 3 times a day added. Chest tube removed. No pneumothorax. - Nebulizer treatments scheduled. - Monitor respiratory status. Macrocytic anemia - secondary to EtOH dependence - Thiamine, folate Status post fall, multiple rib fractures, pubic rib fractures, pelvic fractures with sacral fracture nondisplaced acetabular fracture - Orthopedic following patient. Weightbearing status was ordered. Recommended toe-touch weightbearing on the left leg. - Pain management. Patient with chronic pain even prior to this hospitalization. Pain is better controlled. Left shoulder pain: Likely osteoarthritis flare. Continue with pain control. Tobacco use -nicotine patch HTN : Labile BP, continue Lopressor 50 mg twice a day and lisinopril to 20 mg daily. Amlodipine was added. clonidine as needed and Vasotec when necessary. Prophylaxis: DVT prop B-SCDs GI: famotidine Discharge Planning Per primary. Hospitalist cleared for DC. Problem Qualifiers (1) Multiple rib fractures: Qualified Code: S22.42XA - Closed fracture of multiple ribs of left side, initial encounter (2) Lung contusion: Qualified Code: S27.321A - Contusion of left lung, initial encounter (3) Fall from ladder: Qualified Code: W11.XXXA - Fall from ladder, initial encounter (4) Traumatic pneumothorax: Qualified Code: S27.0XXA - Traumatic pneumothorax, initial encounter (5) Pelvic fracture: Qualified Code: S32.810A - Multiple closed fractures of pelvis with stable disruption of pelvic [place], initial encounter Simon Lomax MD Dec 15, 2016 11:45
[2016-12-15] MEDS: amLODIPine BESYLATE 5 MG TAB PO SCH (13:34)
[2016-12-15] MEDS: ENOXAPARIN SODIUM 40 MG/0.4 ML SYRINGE SQ SCH (13:35)
--- NOTE | 2016-12-15 15:22 | HHI.PR ---
Subjective Subjective Notes No complaints. Eating well Objective Vitals/I&O Vital Signs Date Time Temp Pulse Resp B/P Pulse Ox O2 Delivery O2 Flow Rate FiO2 12/15/16 12:00 97.1 79 20 143/70 91 12/15/16 09:18 Nasal Cannula 2.00 Labs Laboratory Tests Test 12/12/16 07:25 White Blood Count 11.1 TH/MM3 Red Blood Count 2.46 MIL/MM3 Hemoglobin 8.7 GM/DL Hematocrit 25.5 % Mean Corpuscular Volume 103.9 FL Mean Corpuscular Hemoglobin 35.3 PG Mean Corpuscular Hemoglobin 34.0 % Concent Red Cell Distribution Width 14.6 % Platelet Count 262 TH/MM3 Mean Platelet Volume 8.3 FL Neutrophils (%) (Auto) 73.3 % Lymphocytes (%) (Auto) 10.9 % Monocytes (%) (Auto) 9.0 % Eosinophils (%) (Auto) 1.7 % Basophils (%) (Auto) 5.1 % Neutrophils # (Auto) 8.2 TH/MM3 Lymphocytes # (Auto) 1.2 TH/MM3 Monocytes # (Auto) 1.0 TH/MM3 Eosinophils # (Auto) 0.2 TH/MM3 Basophils # (Auto) 0.6 TH/MM3 CBC Comment DIFF FINAL Differential Comment Sodium Level 135 MEQ/L Potassium Level 4.1 MEQ/L Chloride Level 102 MEQ/L Carbon Dioxide Level 22.4 MEQ/L Anion Gap 11 MEQ/L Blood Urea Nitrogen 18 MG/DL Creatinine 0.93 MG/DL Estimat Glomerular Filtration 82 ML/MIN Rate Random Glucose 107 MG/DL Calcium Level 7.6 MG/DL Magnesium Level 1.9 MG/DL Total Bilirubin 0.6 MG/DL Aspartate Amino Transf 113 U/L (AST/SGOT) Alanine Aminotransferase 68 U/L (ALT/SGPT) Alkaline Phosphatase 221 U/L Total Protein 5.7 GM/DL Albumin 1.4 GM/DL Radiology Last Impressions Chest X-Ray 11/27/16 0600 Signed Impressions: Service Date/Time: Sunday, November 27, 2016 06:05 - CONCLUSION: 1. Left chest tube remains present and no pneumothorax is visualized. 2. There is a small left pleural effusion with associated volume loss and/or consolidation at the lung base. Neel Mahan MD Pelvis X-Ray 11/25/161950 Signed Impressions: Service Date/Time: November 19:44 - CONCLUSION: Bilateral pubic rami and left sacral fractures. Neel Moyer MD Head CT 11/25/161950 Signed Impressions: Service Date/Time: November 20:06 - CONCLUSION: Motion degraded study without convincing evidence of acute intracranial hemorrhage. Followup noncontrasted head CT suggested in 24 hours. Neel Moyer MD Chest CT 11/25/161950 Signed Impressions: Service Date/Time: November 20:10 - CONCLUSION: Multiple left rib fractures with moderate left pneumothorax, tiny left hemothorax and probable contusion of the left lower lobe. Neel Moyer MD Cervical Spine CT 11/25/161950 Signed Impressions: Service Date/Time: November 20:06 - CONCLUSION: 1. No fracture or subluxation of the cervical spine. 2. Degenerative changes with a chronic appearing disc osteophyte complex and uncovertebral/facet osteoarthritis causing severe spinal and bilateral foraminal stenosis at C6-C7. 3. Small, age-indeterminate posterior disc protrusion at C7/T1 causing mild spinal stenosis. Neel Moyer MD Abdomen/Pelvis CT 11/25/161950 Signed Impressions: Service Date/Time: November 20:10 - CONCLUSION: 1. No evidence of acute visceral or injury. 2. Fractures of the left body and ala of the sacrum with mildly displaced fracturing in the region of the left S2/S3 foramen. 3. Bilateral superior and inferior pubic rami fractures and a nondisplaced fracture of the left acetabulum. 4. Small presacral and left iliopsoas hematomas. I don't see active bleeding. Neel Moyer MD Thoracic Spine CT 11/25/16 0000 Signed Impressions: Service Date/Time: November 20:10 - CONCLUSION: Left T12 transverse process and facet fracture, minimally displaced. Multiple left posterior rib fractures and placed refer to the chest CT report. Thoracic vertebral bodies are intact. No subluxations. Neel Moyer MD Lumbar Spine CT 11/25/16 0000 Signed Impressions: Service Date/Time: November 20:10 - CONCLUSION: 1. Minimally to mildly displaced left transverse process fractures of L1-L4. 2. Multilevel degenerative changes as above. Large right paracentral disc fragment at L4/L5, probably nonacute. Neel Moyer MD Narrative Exam GENERAL: 61 year old disheveled male lying in bed. SKIN: Warm and dry. NECK: Trachea midline. No JVD. CARDIOVASCULAR: Regular rate and rhythm. RESPIRATORY: Lungs clear and diminished to auscultation. No accessory muscle use. GASTROINTESTINAL: Abdomen soft, non-distended and no tenderness to palpation. + BS. MUSCULOSKELETAL: Extremities without cyanosis, or edema. No obvious deformities. NEUROLOGICAL: Awake and alert. Normal speech. A/P Problem List: (1) Pelvic fracture (2) Traumatic pneumothorax (3) Fall from ladder (4) Lung contusion (5) Multiple rib fractures Assessment and Plan INJURIES: Multiple LEFT rib fxs LEFT PTX Tiny LEFT hemoPTX LEFT lower lobe contusion LEFT S2-S3 foramen fx (mild displaced) BILAT superior and inferior pubic rami fx (non-op) LEFT sacral Fx (non-op) LEFT acetabulum fx (non-displaced) (non-op) Diet: Regular, tolerating Pulm: IS, acapella, EZpap. Nebs. 2 L nasal cannula. Pain; Percocet. Robaxin. Neurontin Activity: OOB. PT and OT evaluating. (WBAT RLE; TTWB LLE). GI: Pepcid Bowel: Roseanne-colace. MOM. LBM 12/14 DVT: SCD's. Lovenox. Hospitalist consulted for BP management. Added Norvasc today. [facility] wants his BP better controlled before he transfers to rehab. Discussed discharge plan with Dr. Boyd. She wants to patient discharge on PO Flagyl 2 weeks. Patient with resistant gram-positive cocci from chest wound, no susceptibility report available from our lab. Follow up microbiology report sent to [facility] for susceptibility and call Dr. Boyd with the results. Plan of care discussed with patient at bedside. Case management consulted for discharge planning. [facility] called me today stating they want his pain and blood pressure better controlled before accepting. Patient is clear from trauma surgery standpoint to safely discharge to inpatient rehabilitation. Problem Qualifiers (1) Pelvic fracture: Qualified Code: S32.810A - Multiple closed fractures of pelvis with stable disruption of pelvic [place], initial encounter (2) Traumatic pneumothorax: Qualified Code: S27.0XXA - Traumatic pneumothorax, initial encounter (3) Fall from ladder: Qualified Code: W11.XXXA - Fall from ladder, initial encounter (4) Lung contusion: Qualified Code: S27.321A - Contusion of left lung, initial encounter (5) Multiple rib fractures: Qualified Code: S22.42XA - Closed fracture of multiple ribs of left side, initial encounter Ni Serrano Dec 15, 2016 15:22
[2016-12-15] MEDS: REMOVE OLD NICODERM (NICOTINE) PATCH TD SCH (21:00)
[2016-12-16] VITALS (7 sets, daily range): BP systolic 132–170; BP diastolic 64–81; PULSE 71–92; RESP 18–24; TEMP 96–97.6; O2SAT 92–94
[2016-12-16] MEDS: MELATONIN 5 MG TAB PO PRN ×2 (01:17→22:34)
[2016-12-16] MEDS: oxyCODONE/ACETAMINOPHEN 10 MG/325 MG TAB PO PRN ×4 (01:44→19:14)
[2016-12-16] MEDS: metroNIDAZOLE 500 MG TAB PO SCH ×3 (06:15→22:31)
[2016-12-16] MEDS: LACTULOSE SYRUP 20 GM/30 ML CUP PO SCH (09:00)
[2016-12-16] MEDS: FAMOTIDINE 20 MG TAB PO SCH ×2 (09:00→22:31)
[2016-12-16] MEDS: DOCUSATE SODIUM 50 MG/SENNA 8.6 MG TAB PO SCH ×2 (09:00→21:00)
[2016-12-16] MEDS: SODIUM CHLORIDE 0.9% FLUSH 5 ML FLUSH IVF SCH ×2 (09:21→22:32)
[2016-12-16] MEDS: LEVOFLOXACIN 500 MG TAB PO SCH (09:22)
[2016-12-16] MEDS: METOPROLOL TARTRATE 50 MG TAB PO SCH ×2 (09:23→22:31)
[2016-12-16] MEDS: GABAPENTIN 400 MG CAP PO SCH ×3 (09:23→19:14)
[2016-12-16] MEDS: LISINOPRIL 20 MG TAB PO SCH (09:23)
[2016-12-16] MEDS: NICOTINE 14 MG/24 HR PATCH TD SCH (09:23)
[2016-12-16] MEDS: amLODIPine BESYLATE 5 MG TAB PO SCH (09:23)
[2016-12-16] MEDS: METHOCARBAMOL 500 MG TAB PO SCH ×3 (09:31→19:14)
--- NOTE | 2016-12-16 11:42 | HHI.PR ---
Subjective Subjective Notes PTD: 19 Patient lying in bed, RN at bedside. No complaints offered at present. Objective Vitals/I&O Vital Signs Date Time Temp Pulse Resp B/P Pulse Ox O2 Delivery O2 Flow Rate FiO2 12/16/16 08:00 96.4 92 18 170/78 92 12/15/16 21:51 Nasal Cannula 2.00 Labs Laboratory Tests Test 12/12/16 07:25 White Blood Count 11.1 TH/MM3 Red Blood Count 2.46 MIL/MM3 Hemoglobin 8.7 GM/DL Hematocrit 25.5 % Mean Corpuscular Volume 103.9 FL Mean Corpuscular Hemoglobin 35.3 PG Mean Corpuscular Hemoglobin 34.0 % Concent Red Cell Distribution Width 14.6 % Platelet Count 262 TH/MM3 Mean Platelet Volume 8.3 FL Neutrophils (%) (Auto) 73.3 % Lymphocytes (%) (Auto) 10.9 % Monocytes (%) (Auto) 9.0 % Eosinophils (%) (Auto) 1.7 % Basophils (%) (Auto) 5.1 % Neutrophils # (Auto) 8.2 TH/MM3 Lymphocytes # (Auto) 1.2 TH/MM3 Monocytes # (Auto) 1.0 TH/MM3 Eosinophils # (Auto) 0.2 TH/MM3 Basophils # (Auto) 0.6 TH/MM3 CBC Comment DIFF FINAL Differential Comment Sodium Level 135 MEQ/L Potassium Level 4.1 MEQ/L Chloride Level 102 MEQ/L Carbon Dioxide Level 22.4 MEQ/L Anion Gap 11 MEQ/L Blood Urea Nitrogen 18 MG/DL Creatinine 0.93 MG/DL Estimat Glomerular Filtration 82 ML/MIN Rate Random Glucose 107 MG/DL Calcium Level 7.6 MG/DL Magnesium Level 1.9 MG/DL Total Bilirubin 0.6 MG/DL Aspartate Amino Transf 113 U/L (AST/SGOT) Alanine Aminotransferase 68 U/L (ALT/SGPT) Alkaline Phosphatase 221 U/L Total Protein 5.7 GM/DL Albumin 1.4 GM/DL Radiology Last Impressions Chest X-Ray 11/27/16 0600 Signed Impressions: Service Date/Time: Sunday, November 27, 2016 06:05 - CONCLUSION: 1. Left chest tube remains present and no pneumothorax is visualized. 2. There is a small left pleural effusion with associated volume loss and/or consolidation at the lung base. Neel Mahan MD Pelvis X-Ray 11/25/161950 Signed Impressions: Service Date/Time: November 19:44 - CONCLUSION: Bilateral pubic rami and left sacral fractures. Neel Moyer MD Head CT 11/25/161950 Signed Impressions: Service Date/Time: November 20:06 - CONCLUSION: Motion degraded study without convincing evidence of acute intracranial hemorrhage. Followup noncontrasted head CT suggested in 24 hours. Neel Moyer MD Chest CT 11/25/161950 Signed Impressions: Service Date/Time: November 20:10 - CONCLUSION: Multiple left rib fractures with moderate left pneumothorax, tiny left hemothorax and probable contusion of the left lower lobe. Neel Moyer MD Cervical Spine CT 11/25/161950 Signed Impressions: Service Date/Time: November 20:06 - CONCLUSION: 1. No fracture or subluxation of the cervical spine. 2. Degenerative changes with a chronic appearing disc osteophyte complex and uncovertebral/facet osteoarthritis causing severe spinal and bilateral foraminal stenosis at C6-C7. 3. Small, age-indeterminate posterior disc protrusion at C7/T1 causing mild spinal stenosis. Neel Moyer MD Abdomen/Pelvis CT 11/25/161950 Signed Impressions: Service Date/Time: November 20:10 - CONCLUSION: 1. No evidence of acute visceral or injury. 2. Fractures of the left body and ala of the sacrum with mildly displaced fracturing in the region of the left S2/S3 foramen. 3. Bilateral superior and inferior pubic rami fractures and a nondisplaced fracture of the left acetabulum. 4. Small presacral and left iliopsoas hematomas. I don't see active bleeding. Neel Moyer MD Thoracic Spine CT 11/25/16 0000 Signed Impressions: Service Date/Time: November 20:10 - CONCLUSION: Left T12 transverse process and facet fracture, minimally displaced. Multiple left posterior rib fractures and placed refer to the chest CT report. Thoracic vertebral bodies are intact. No subluxations. Neel Moyer MD Lumbar Spine CT 11/25/16 0000 Signed Impressions: Service Date/Time: November 20:10 - CONCLUSION: 1. Minimally to mildly displaced left transverse process fractures of L1-L4. 2. Multilevel degenerative changes as above. Large right paracentral disc fragment at L4/L5, probably nonacute. Neel Moyer MD Narrative Exam GENERAL: This is a 58-year-old man well developed, well nourished, lying in bed in no distress. SKIN: Warm and dry. HEAD: Atraumatic. Normocephalic. EYES: PERRLA ENT: No nasal bleeding or discharge. Mucous membranes pink and moist. NECK: Trachea midline. No JVD. CARDIOVASCULAR: Regular rate and rhythm. RESPIRATORY: 2 L nasal cannula. Sats equal 94%. No accessory muscle use. Lungs with slight rhonchi to auscultation in all lobes. Breath sounds equal bilaterally. No distress or dyspnea. GASTROINTESTINAL: BS + x 4 quads. Abdomen soft, non-tender, nondistended. MUSCULOSKELETAL: Extremities without cyanosis, or edema. + peripheral pulses x 4 extremities. Warm with good capillary refill and sensation. MAEW. NEUROLOGICAL: Awake and confused. Normal speech and pattern. A/P Problem List: (1) Pelvic fracture (2) Traumatic pneumothorax (3) Fall from ladder (4) Lung contusion (5) Multiple rib fractures Assessment and Plan PAUMA: This is a 58-year-old male who sustained a fall from approximately 20 feet off a ladder. He fell onto his back. No LOC. GCS = 14. He was originally managed closely in the ICU, however has been transferred to the Med/ Surg floor. Discharge planning in place. Hx: EtOH abuse INJURIES: Multiple LEFT rib fxs LEFT PTX Tiny LEFT hempPTX (w/ CT LEFT lower lobe contusion (spinal stenosis C6-C7) (Disk protrusion C7-T1- spinal stenosis) LEFT S2-S3 foramen fx (mild displaced) BILAT superior and inferior pubic rami fx (non-op) LEFT sacral Fx (non-op) LEFT acetabulum fx (non-displaced) (non-op) Procedures: CT pigtail with IR 12/05: LEFT VATS with thoracotomy; LEFT decortication and empyema removal. 12/09: DC chest tube #2 12/12: DC CT #1 Consults: CCM, orthopedics, IR, infectious disease, HEPAS. Diet: Regular diet. Tolerating po diet. Encourage good po intake with each meal. Pulmonary: O2 2L NC. Encourage good pulmonary toileting. IS at bedside and pt encouraged to use. Acapella and a EZpap in place. Rationale for use and the importance of use explained to patient at the bedside. All verbalized understanding. Duonebs q 2 PRN. PAIN Management: Percocet po. Morphine IV PRN for breakthrough pain . Robaxin po. Neurontin 300mg TID. (Melatonin HS) HTN management: Lopressor, and lisinopril, clonidine PRN. Norvasc po. IV antibiotics: Levaquin po. Flagyl po. Activity: OOB with assist. PT and OT ordered and intensified to 7 days a week. (WBAT RLE; TTWB LLE) GI prophylaxis: Pepcid po. Bowel regimen: Roseanne-colace and MOM. Lactulose q day. LBM = 12/15. DVT prophylaxis: Mechanical VTE with SCDs. Chemical management with Lovenox 40 q day DC Planning: Case management consulted for assistance with final discharge disposition. [facility] has denied the patient for admission due to his refusal or limited participation in PT and OT while in the hospital. Patient does not have SNF coverage, therefore he must remain in the hospital until he can be safely discharged home. This is going to be a difficult task as the patient does not like to participate in PT or OT or any active ambulation or movement. Emotional support provided to patient at bedside and plan of care discussed. Discussed with RN at bedside. Patient is hemodynamically stable and being managed on the med/surg floor. The exam, history, and the medical decision-making described in the above note were completed with the assistance of the mid-level provider. I reviewed and agree with the findings presented. I attest that I had a [id number] encounter with the patient on the same day, and personally performed and documented my assessment and findings in the medical record. Problem Qualifiers (1) Pelvic fracture: Qualified Code: S32.810A - Multiple closed fractures of pelvis with stable disruption of pelvic [place] initial encounter (2) Traumatic pneumothorax: Qualified Code: S27.0XXA - Traumatic pneumothorax, initial encounter (3) Fall from ladder: Qualified Code: W11.XXXA - Fall from ladder, initial encounter (4) Lung contusion: Qualified Code: S27.321A - Contusion of left lung, initial encounter (5) Multiple rib fractures: Qualified Code: S22.42XA - Closed fracture of multiple ribs of left side, initial encounter Shoshana Donovan Dec 16, 2016 11:42 Tyshawn Hollins MD Dec 28, 2016 20:38
[2016-12-16] MEDS: ENOXAPARIN SODIUM 40 MG/0.4 ML SYRINGE SQ SCH (12:51)
[2016-12-16] MEDS: RESP: ALBUTEROL 2.5 MG/IPRATROPIUM 0.5 MG NEB (PRN) NEB (20:40)
[2016-12-16] MEDS: REMOVE OLD NICODERM (NICOTINE) PATCH TD SCH (21:00)
[2016-12-17] VITALS (8 sets, daily range): BP systolic 140–194; BP diastolic 73–98; PULSE 16–116; RESP 18–22; TEMP 96.3–98.8; O2SAT 91–94
[2016-12-17] MEDS: oxyCODONE/ACETAMINOPHEN 10 MG/325 MG TAB PO PRN ×2 (00:19→22:16)
[2016-12-17] MEDS: metroNIDAZOLE 500 MG TAB PO SCH ×3 (06:01→22:05)
[2016-12-17] MEDS ORDERED: BISACODYL EC 5 MG TABEC PO ONE (07:45)
[2016-12-17] MEDS ORDERED: BISACODYL 10 MG SUPP RECTAL ONE (07:45)
[2016-12-17] MEDS: DOCUSATE SODIUM 50 MG/SENNA 8.6 MG TAB PO SCH ×2 (09:00→22:16)
[2016-12-17] MEDS: LACTULOSE SYRUP 20 GM/30 ML CUP PO SCH (09:00)
[2016-12-17] MEDS: FAMOTIDINE 20 MG TAB PO SCH ×2 (10:06→22:05)
[2016-12-17] MEDS: NICOTINE 14 MG/24 HR PATCH TD SCH (10:07)
[2016-12-17] MEDS: amLODIPine BESYLATE 5 MG TAB PO SCH (10:07)
[2016-12-17] MEDS: METHOCARBAMOL 500 MG TAB PO SCH ×3 (10:07→19:04)
[2016-12-17] MEDS: GABAPENTIN 400 MG CAP PO SCH ×3 (10:07→19:04)
[2016-12-17] MEDS: SODIUM CHLORIDE 0.9% FLUSH 5 ML FLUSH IVF SCH ×2 (10:08→22:08)
[2016-12-17] MEDS: LEVOFLOXACIN 500 MG TAB PO SCH (10:08)
[2016-12-17] MEDS: METOPROLOL TARTRATE 50 MG TAB PO SCH ×2 (10:08→22:08)
[2016-12-17] MEDS: LISINOPRIL 20 MG TAB PO SCH (10:08)
--- NOTE | 2016-12-17 10:52 | HHI.PR ---
Subjective Subjective Notes PTD: 22 Patient sitting up in bed. He states "I feel a little bit better, but I am just a little bit confused." Daughter and granddaughter at bedside - Dr. Faustin educated and discussed with them the patient's injuries, and hospital care to date. Objective Vitals/I&O Vital Signs Date Time Temp Pulse Resp B/P Pulse Ox O2 Delivery O2 Flow Rate FiO2 12/17/16 10:31 94 Nasal Cannula 2.00 12/17/16 08:23 96.3 87 18 176/79 Radiology Last Impressions Chest X-Ray 11/27/16 0600 Signed Impressions: Service Date/Time: Sunday, November 27, 2016 06:05 - CONCLUSION: 1. Left chest tube remains present and no pneumothorax is visualized. 2. There is a small left pleural effusion with associated volume loss and/or consolidation at the lung base. Neel Mahan MD Pelvis X-Ray 11/25/161950 Signed Impressions: Service Date/Time: November 19:44 - CONCLUSION: Bilateral pubic rami and left sacral fractures. Neel Moyer MD Head CT 11/25/161950 Signed Impressions: Service Date/Time: November 20:06 - CONCLUSION: Motion degraded study without convincing evidence of acute intracranial hemorrhage. Followup noncontrasted head CT suggested in 24 hours. Neel Moyer MD Chest CT 11/25/161950 Signed Impressions: Service Date/Time: November 20:10 - CONCLUSION: Multiple left rib fractures with moderate left pneumothorax, tiny left hemothorax and probable contusion of the left lower lobe. Neel Moyre MD Cervical Spine CT 11/25/161950 Signed Impressions: Service Date/Time: November 20:06 - CONCLUSION: 1. No fracture or subluxation of the cervical spine. 2. Degenerative changes with a chronic appearing disc osteophyte complex and uncovertebral/facet osteoarthritis causing severe spinal and bilateral foraminal stenosis at C6-C7. 3. Small, age-indeterminate posterior disc protrusion at C7/T1 causing mild spinal stenosis. Neel Moyer MD Abdomen/Pelvis CT 11/25/161950 Signed Impressions: Service Date/Time: November 20:10 - CONCLUSION: 1. No evidence of acute visceral or injury. 2. Fractures of the left body and ala of the sacrum with mildly displaced fracturing in the region of the left S2/S3 foramen. 3. Bilateral superior and inferior pubic rami fractures and a nondisplaced fracture of the left acetabulum. 4. Small presacral and left iliopsoas hematomas. I don't see active bleeding. Neel Moyer MD Thoracic Spine CT 11/25/16 0000 Signed Impressions: Service Date/Time: November 20:10 - CONCLUSION: Left T12 transverse process and facet fracture, minimally displaced. Multiple left posterior rib fractures and placed refer to the chest CT report. Thoracic vertebral bodies are intact. No subluxations. Neel Moyer MD Lumbar Spine CT 11/25/16 0000 Signed Impressions: Service Date/Time: November 20:10 - CONCLUSION: 1. Minimally to mildly displaced left transverse process fractures of L1-L4. 2. Multilevel degenerative changes as above. Large right paracentral disc fragment at L4/L5, probably nonacute. Neel Moyer MD Narrative Exam GENERAL: This is a 58-year-old man well developed, well nourished, lying in bed in no distress. SKIN: Warm and dry. HEAD: Atraumatic. Normocephalic. EYES: PERRLA ENT: No nasal bleeding or discharge. Mucous membranes pink and moist. NECK: Trachea midline. No JVD. CARDIOVASCULAR: Regular rate and rhythm. RESPIRATORY: No accessory muscle use. Lungs with scant rhonchi to auscultation in all lobes. Breath sounds equal bilaterally. No distress or dyspnea. GASTROINTESTINAL: BS + x 4 quads. Abdomen soft, non-tender, nondistended. MUSCULOSKELETAL: Extremities without cyanosis, or edema. + peripheral pulses x 4 extremities. Warm with good capillary refill and sensation. MAEW. NEUROLOGICAL: Awake and confused. Normal speech and pattern. A/P Problem List: (1) Pelvic fracture (2) Traumatic pneumothorax (3) Fall from ladder (4) Lung contusion (5) Multiple rib fractures Assessment and Plan [place]: This is a 58-year-old male who sustained a fall from approximately 20 feet off a ladder. He fell onto his back. No LOC. GCS = 14. He was originally managed closely in the ICU, however has been transferred to the Med/ Surg floor. Discharge planning in place. Hx: EtOH abuse INJURIES: Multiple LEFT rib fxs LEFT PTX Tiny LEFT hemoPTX (w/ CT LEFT lower lobe contusion (spinal stenosis C6-C7) (Disk protrusion C7-T1- spinal stenosis) LEFT S2-S3 foramen fx (mild displaced) BILAT superior and inferior pubic rami fx (non-op) LEFT sacral Fx (non-op) LEFT acetabulum fx (non-displaced) (non-op) Procedures: CT pigtail with IR 12/05: LEFT VATS with thoracotomy; LEFT decortication and empyema removal. 12/09: DC chest tube #2 12/12: DC CT #1 Consults: CCM, orthopedics, IR, infectious disease, HEPAS. Diet: Regular diet. Tolerating po diet. Encourage good po intake with each meal. Pulmonary: O2 2L NC. Encourage good pulmonary toileting. IS at bedside and pt encouraged to use. Acapella and a EZpap in place. Rationale for use and the importance of use explained to patient at the bedside. All verbalized understanding. Duonebs q 2 PRN. PAIN Management: Percocet po. Morphine IV PRN for breakthrough pain . Robaxin po. Neurontin 300mg TID. (Melatonin HS) HTN management: Lopressor, and lisinopril, clonidine PRN. Norvasc po. IV antibiotics: Levaquin po. Flagyl po. Activity: OOB with assist. PT and OT ordered and intensified to 7 days a week. (WBAT RLE; TTWB LLE) Discussed with the patient, and his daughter at the bedside, the importance of participating in physical therapy and occupational therapy each day. GI prophylaxis: Pepcid po. Bowel regimen: Roseanne-colace and MOM. Lactulose q day. LBM = 12/15. Intensified with bisacodyl OH/PO, however the patient refused to take them. DVT prophylaxis: Mechanical VTE with SCDs. Chemical management with Lovenox 40 q day DC Planning: Case management consulted for assistance with final discharge disposition. [facility] has denied the patient for admission due to his refusal/limited participation in PT and OT while in the hospital. Patient does not have SNF coverage, therefore he must remain in the hospital until he can be safely discharged home. This is going to be a difficult task as the patient does not like to participate in PT or OT or any active ambulation or movement. Emotional support provided to patient at bedside and plan of care discussed. Discussed with RN at bedside. Patient is hemodynamically stable and being managed on the med/surg floor. Problem Qualifiers (1) Pelvic fracture: Qualified Code: S32.810A - Multiple closed fractures of pelvis with stable disruption of pelvic [place], initial encounter (2) Traumatic pneumothorax: Qualified Code: S27.0XXA - Traumatic pneumothorax, initial encounter (3) Fall from ladder: Qualified Code: W11.XXXA - Fall from ladder, initial encounter (4) Lung contusion: Qualified Code: S27.321A - Contusion of left lung, initial encounter (5) Multiple rib fractures: Qualified Code: S22.42XA - Closed fracture of multiple ribs of left side, initial encounter Shoshana Donovan Dec 17, 2016 10:52
[2016-12-17] MEDS: ENOXAPARIN SODIUM 40 MG/0.4 ML SYRINGE SQ SCH (12:27)
--- NOTE | 2016-12-17 17:29 | RADRPT ---
EXAM DATE/TIME: 12/17/2016 17:02 [facility] COMPARISON: CHEST SINGLE AP, December 13, 2016, 5:52. INDICATIONS : Shortness of breath MEDICAL HISTORY : hemothorax, pneumothorax SURGICAL HISTORY : thoracotomy, chest tubes, cervical fusion ENCOUNTER: Initial ACUITY: 2 days PAIN SCORE: 0/10 LOCATION: Bilateral chest FINDINGS: There is bilateral interstitial and airspace disease. This appears to be increased from the prior jj dy. The heart size is stable. There is a mobile small left effusion. No significant right effusion. T he bony structures are stable. CONCLUSION: Bilateral interstitial and airspace disease which appears to be mildly increased compared to the prio r exam. River Singer MD on December 17, 2016 at 17:27 Board Certified Radiologist. This report was verified electronically.
[2016-12-17 18:30] LABS: AUTOMATED NEUTROPHIL # 10.1 TH/MM3 (1.8-7.7); EOSINOPHIL % 0.2 % (0.0-4.0); HEMATOCRIT 26.7 % (39.0-51.0); LYMPHOCYTE # 0.9 TH/MM3 (1.0-4.8); MEAN CELL VOLUME 101.9 FL (80.0-100.0); MEAN CORPUSCULAR HEMOGLOBIN 35.1 PG (27.0-34.0); MEAN CORPUSCULAR HGB CONC 34.5 % (32.0-36.0); MONO % 10.7 % (0.0-8.0); NEUT % 82.1 % (16.0-70.0); PLATELET COUNT 394 TH/MM3 (150-450); RED BLOOD COUNT 2.62 MIL/MM3 (4.50-5.90); RED CELL DISTRIBUTION WIDTH 14.6 % (11.6-17.2); WHITE BLOOD COUNT 12.3 TH/MM3 (4.0-11.0)
[2016-12-17 18:38] LABS: HEMO FLAGS AUTO DIFF
[2016-12-17] MEDS: LORazepam 2 MG/ML VIAL IV PUSH PRN (19:04)
[2016-12-17 19:28] LABS: BICARBONATE 20.2 MEQ/L (21.0-32.0)
[2016-12-17 19:30] LABS: POTASSIUM 4.9 MEQ/L (3.5-5.1)
[2016-12-17 20:07] LABS: SCAN/DIFF AUTO DIFF CONFIRMED
[2016-12-17] MEDS: REMOVE OLD NICODERM (NICOTINE) PATCH TD SCH (21:00)
[2016-12-17] MEDS: cloNIDine HCL 0.1 MG TAB PO PRN ×2 (22:05→22:06)
[2016-12-17] MEDS: MELATONIN 5 MG TAB PO PRN ×2 (22:05→22:06)
[2016-12-18] VITALS (9 sets, daily range): BP systolic 119–197; BP diastolic 60–93; PULSE 20–96; RESP 16–23; TEMP 95.7–98.8; O2SAT 92–97
[2016-12-18] MEDS: SODIUM CHLOR 0.9% 1000 ML INJ 1,000 ML IV SCH (02:33)
[2016-12-18] MEDS: oxyCODONE/ACETAMINOPHEN 10 MG/325 MG TAB PO PRN ×2 (03:28→11:51)
[2016-12-18] MEDS: LORazepam 2 MG/ML VIAL IV PUSH PRN (03:29)
[2016-12-18] MEDS: SODIUM CHLORIDE 0.9% FLUSH 5 ML FLUSH IVF PRN ×2 (03:32→21:37)
[2016-12-18] MEDS: metroNIDAZOLE 500 MG TAB PO SCH ×3 (05:26→21:21)
[2016-12-18] MEDS: METOPROLOL TARTRATE 50 MG TAB PO SCH ×2 (08:30→21:21)
[2016-12-18] MEDS: LISINOPRIL 20 MG TAB PO SCH (08:31)
[2016-12-18] MEDS: LEVOFLOXACIN 500 MG TAB PO SCH (08:31)
[2016-12-18] MEDS: NICOTINE 14 MG/24 HR PATCH TD SCH (08:32)
[2016-12-18] MEDS: FUROSEMIDE 20 MG/2 ML VIAL IV PUSH SCH (08:42)
[2016-12-18] MEDS: SODIUM CHLORIDE 0.9% FLUSH 5 ML FLUSH IVF SCH ×2 (08:43→21:00)
[2016-12-18] MEDS: FAMOTIDINE 20 MG TAB PO SCH ×2 (09:00→21:22)
[2016-12-18] MEDS: LACTULOSE SYRUP 20 GM/30 ML CUP PO SCH (09:00)
[2016-12-18] MEDS: METHOCARBAMOL 500 MG TAB PO SCH ×2 (09:00→10:33)
[2016-12-18] MEDS ORDERED: amLODIPine BESYLATE 5 MG TAB PO SCH (09:00)
[2016-12-18] MEDS: GABAPENTIN 400 MG CAP PO SCH ×5 (09:00→18:00)
[2016-12-18] MEDS: DOCUSATE SODIUM 50 MG/SENNA 8.6 MG TAB PO SCH ×2 (09:00→21:22)
[2016-12-18] MEDS: RESP: ALBUTEROL 2.5 MG/IPRATROPIUM 0.5 MG NEB (SCH) NEB ×2 (11:44→21:04)
--- NOTE | 2016-12-18 11:50 | HHI.PR ---
Subjective Remarks Patient more lethargic and confused today. His BP is uncontrolled. He admits to having some difficulty breathing. LOVELY RN. Objective Vitals Vital Signs Date Time Temp Pulse Resp B/P Pulse Ox O2 Delivery O2 Flow Rate FiO2 12/18/16 08:20 95.7 96 23 197/78 92 12/18/16 03:11 97.6 93 20 162/75 92 12/18/16 00:00 98.8 80 18 155/81 93 12/17/16 20:00 97.0 16 20 194/98 93 12/17/16 20:00 97.8 116 22 194/98 93 12/17/16 18:00 102 12/17/16 16:13 98.8 105 18 160/73 92 12/17/16 12:00 98.4 95 18 170/80 92 I/O 12/17/16 12/17/16 12/17/16 12/18/16 12/18/16 12/18/16 07:00 15:00 23:00 07:00 15:00 23:00 Intake Total 120 ml Balance 120 ml Intake Oral 120 ml # Voids 3 # Bowel Movements 1 Result Diagram: 12/17/16180612/17/161806 Objective Remarks GENERAL: Patient is confused, mild respiratory distress. CARDIOVASCULAR: Normal rate and regular rhythm without murmurs, gallops, or rubs. RESPIRATORY: Diminished breath robyn. Chest tube has been removed. Dressing appear intact. He has diffuse rhonchi and wheezing. Worse on the right. GASTROINTESTINAL: Abdomen soft, non-tender, non-distended. Normal active bowel sounds MUSCULOSKELETAL: Extremities without cyanosis, or edema. NEURO: Lethargic. Moves all ext x4. Generalized weakness. PSYCH: Calm A/P Problem List: (1) Multiple rib fractures ICD Code: S22.49XA Status: Acute (2) Lung contusion ICD Code: S27.329A Status: Acute (3) Fall from ladder ICD Code: W11.XXXA Status: Acute (4) Traumatic pneumothorax ICD Code: S27.0XXA Status: Acute (5) Pelvic fracture ICD Code: S32.9XXA Status: Acute (6) HTN (hypertension) ICD Code: I10 Status: Acute (7) EtOH dependence ICD Code: F10.20 Status: Acute Assessment and Plan 58-year-old gentleman reportedly fell 20 feet off of a ladder onto his back without loss of consciousness. He may have been drinking. He was brought in as a trauma alert. Patient arrived alert with mild confusion his [place] Coma Scale was 14 complaining of back pain and left chest pain. Patient had multiple left-sided rib fractures with hemopneumothorax. Patient also had multiple pelvic fractures with sacral fracture nondisplaced acetabular fracture. Initially managed in critical care, improving clinically and was transferred to medical-surgical floor. Hospitalist service following for medical management. Trauma team as primary. EtOH abuse, dependence - S/P CIWA protocol. Patient went through DTs. Patient was counseled about complete cessation. He still has some encephalopathy. Hold RObaxin. LOVELY RN to minimize sedating meds. Pneumonia/Left Lung empyema:s/p VATS, thoracotomy and decortication with evacuation of left empyema 12/05/16. S/P Diflucan IV, Zosyn and Vancomycin. Management per ID and CTS. Percocet 10mg every 4H breakthrough and Neurontin 300 mg 3 times a day added. Chest tube removed. - Breathing status worse today. Repeat CXR. - Nebulizer treatments scheduled. - Monitor respiratory status. - Continue Levaquin and Flagyl Macrocytic anemia - secondary to EtOH dependence - Thiamine, folate Status post fall, multiple rib fractures, pubic rib fractures, pelvic fractures with sacral fracture nondisplaced acetabular fracture - Orthopedic following patient. Weightbearing status was ordered. Recommended toe-touch weightbearing on the left leg. - Pain management. Patient with chronic pain even prior to this hospitalization. Pain is better controlled. Tobacco use -nicotine patch HTN : Uncontrolled, continue Lopressor 50 mg twice a day and lisinopril to 20 mg daily. No improvement with Amlodipine. Will try Nifedipine Q8Hrs. clonidine as needed and Vasotec when necessary. Prophylaxis: DVT prop B-SCDs GI: famotidine Problem Qualifiers (1) Multiple rib fractures: Qualified Code: S22.42XA - Closed fracture of multiple ribs of left side, initial encounter (2) Lung contusion: Qualified Code: S27.321A - Contusion of left lung, initial encounter (3) Fall from ladder: Qualified Code: W11.XXXA - Fall from ladder, initial encounter (4) Traumatic pneumothorax: Qualified Code: S27.0XXA - Traumatic pneumothorax, initial encounter (5) Pelvic fracture: Qualified Code: S32.810A - Multiple closed fractures of pelvis with stable disruption of pelvic [place], initial encounter Simon Lomax MD Dec 18, 2016 11:49
[2016-12-18] MEDS: ENOXAPARIN SODIUM 40 MG/0.4 ML SYRINGE SQ SCH (11:55)
--- NOTE | 2016-12-18 13:33 | RADRPT ---
EXAM DATE/TIME: 12/18/2016 12:15 [facility] COMPARISON: CHEST SINGLE AP, December 17, 2016, 17:02. INDICATIONS : Shortness of breath. MEDICAL HISTORY : Pneumothorax. Hemathorax. SURGICAL HISTORY : Thoracotomy. Chest tubes. ENCOUNTER: Initial ACUITY: 1 day PAIN SCORE: Non-responsive. LOCATION: Bilateral chest FINDINGS: Single AP view of the chest. Moderate to severe bilateral parenchymal pulmonary opacity with lower charlie ng zone predominance is again seen. No significant interval change allowing for differences in techni que. No evidence of pneumothorax. CONCLUSION: No significant interval change of bilateral parenchymal pulmonary opacity indicating asymmetric pulmo nary edema versus infection. Aroldo Panchal MD on December 18, 2016 at 13:30 Board Certified Radiologist. This report was verified electronically.
[2016-12-18] MEDS ORDERED: hydrALAZINE HCL 20 MG/ML VIAL IV PUSH PRN (14:15)
[2016-12-18] MEDS: NIFEdipine 20 MG CAP PO SCH ×2 (14:17→21:21)
[2016-12-18] MEDS ORDERED: RESP: ALBUTEROL 2.5 MG/IPRATROPIUM 0.5 MG NEB (PRN) NEB ONE (14:30)
[2016-12-18 14:50] LABS: BLOOD GAS BASE EXCESS -2.2 mmol/L (-2-2); BLOOD GAS CARBOXYHEMOGLOBIN 2.9 % (0-4); BLOOD GAS HCO3 21 mmol/L (22-26); BLOOD GAS METHEMOGLOBIN 0.8 % (0-2); BLOOD GAS O2 HGB SATURATION 87 % (90-100); BLOOD GAS OXYGEN CONTENT 11.7 Vol % (12.0-20.0); BLOOD GAS PCO2 32 mmHg (38-42); BLOOD GAS PO2 62 mmHg (61-120); BLOOD GAS TOTAL HGB 9.5 G/DL (12.0-16.0); CRITICAL VALUE YES; DRAW SITE LT RADIAL; LITER FLOW 2 L/M; NUMBER OF ARTERIAL PUNCTURES 1; OXYGEN DEVICE NASAL CANNULA; STAT YES; TEMP CORR TO 98.6; ULNAR PULSE PRESENT
--- NOTE | 2016-12-18 17:33 | HHI.PR ---
Subjective Subjective Notes Lethargic, confused and tachypneic during visit RN reports patient has been like this since this morning Objective Vitals/I&O Vital Signs Date Time Temp Pulse Resp B/P Pulse Ox O2 Delivery O2 Flow Rate FiO2 12/18/16 12:40 92 21 12/18/16 12:19 96.1 83 21 195/93 12/18/16 08:31 Nasal Cannula 2.00 Labs Laboratory Tests Test 12/17/16 12/18/16 12/18/16 18:07 14:42 15:45 White Blood Count 12.3 Red Blood Count 2.62 Hemoglobin 9.2 Hematocrit 26.7 Mean Corpuscular Volume 101.9 Mean Corpuscular Hemoglobin 35.1 Mean Corpuscular Hemoglobin 34.5 Concent Red Cell Distribution Width 14.6 Platelet Count 394 Mean Platelet Volume 7.5 Neutrophils (%) (Auto) 82.1 Lymphocytes (%) (Auto) 7.0 Monocytes (%) (Auto) 10.7 Eosinophils (%) (Auto) 0.2 Basophils (%) (Auto) 0.0 Neutrophils # (Auto) 10.1 Lymphocytes # (Auto) 0.9 Monocytes # (Auto) 1.3 Eosinophils # (Auto) 0.0 Basophils # (Auto) 0.0 CBC Comment AUTO DIFF Differential Comment AUTO DIFF CONFIRMED Sodium Level 126 132 Potassium Level 4.9 Chloride Level 96 Carbon Dioxide Level 20.2 Anion Gap 10 Blood Urea Nitrogen 23 Creatinine 0.91 Estimat Glomerular Filtration 84 Rate Random Glucose 108 Calcium Level 7.5 Blood Gas Puncture Site LT RADIAL Blood Gas Patient Temperature 98.6 Blood Gas HCO3 21 Blood Gas Base Excess -2.2 Blood Gas Oxygen Saturation 87 Arterial Blood pH 7.44 Arterial Blood Partial 32 Pressure CO2 Arterial Blood Partial 62 Pressure O2 Arterial Blood Oxygen Content 11.7 Arterial Blood 2.9 Carboxyhemoglobin Arterial Blood Methemoglobin 0.8 Blood Gas Hemoglobin 9.5 Oxygen Delivery Device NASAL CANNULA Blood Gas Liter Flow 2 Radiology Last Impressions Chest X-Ray 11/27/16 0600 Signed Impressions: Service Date/Time: Sunday, November 27, 2016 06:05 - CONCLUSION: 1. Left chest tube remains present and no pneumothorax is visualized. 2. There is a small left pleural effusion with associated volume loss and/or consolidation at the lung base. Neel Mahan MD Pelvis X-Ray 11/25/161950 Signed Impressions: Service Date/Time: November 19:44 - CONCLUSION: Bilateral pubic rami and left sacral fractures. Neel Moyer MD Head CT 11/25/161950 Signed Impressions: Service Date/Time: November 20:06 - CONCLUSION: Motion degraded study without convincing evidence of acute intracranial hemorrhage. Followup noncontrasted head CT suggested in 24 hours. Neel Moyer MD Chest CT 11/25/161950 Signed Impressions: Service Date/Time: November 20:10 - CONCLUSION: Multiple left rib fractures with moderate left pneumothorax, tiny left hemothorax and probable contusion of the left lower lobe. Neel Moeyr MD Cervical Spine CT 11/25/161950 Signed Impressions: Service Date/Time: November 20:06 - CONCLUSION: 1. No fracture or subluxation of the cervical spine. 2. Degenerative changes with a chronic appearing disc osteophyte complex and uncovertebral/facet osteoarthritis causing severe spinal and bilateral foraminal stenosis at C6-C7. 3. Small, age-indeterminate posterior disc protrusion at C7/T1 causing mild spinal stenosis. Neel Moyer MD Abdomen/Pelvis CT 11/25/161950 Signed Impressions: Service Date/Time: November 20:10 - CONCLUSION: 1. No evidence of acute visceral or injury. 2. Fractures of the left body and ala of the sacrum with mildly displaced fracturing in the region of the left S2/S3 foramen. 3. Bilateral superior and inferior pubic rami fractures and a nondisplaced fracture of the left acetabulum. 4. Small presacral and left iliopsoas hematomas. I don't see active bleeding. Neel Moyer MD Thoracic Spine CT 11/25/16 0000 Signed Impressions: Service Date/Time: November 20:10 - CONCLUSION: Left T12 transverse process and facet fracture, minimally displaced. Multiple left posterior rib fractures and placed refer to the chest CT report. Thoracic vertebral bodies are intact. No subluxations. Neel Moyer MD Lumbar Spine CT 11/25/16 0000 Signed Impressions: Service Date/Time: Thursday, November 25, 2016 20:10 - CONCLUSION: 1. Minimally to mildly displaced left transverse process fractures of L1-L4. 2. Multilevel degenerative changes as above. Large right paracentral disc fragment at L4/L5, probably nonacute. Neel Moyer MD Narrative Exam GENERAL: 61 year old disheveled male lying in bed. SKIN: Warm and dry. NECK: Trachea midline. No JVD. CARDIOVASCULAR: Regular rate and rhythm. RESPIRATORY: Lungs clear and diminished to auscultation. RR 30. GASTROINTESTINAL: Abdomen soft, non-distended and no tenderness to palpation. + BS. MUSCULOSKELETAL: Extremities without cyanosis, or edema. 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 NEUROLOGICAL: Lethargic, oriented 2. Speech garbled. A/P Problem List: (1) Pelvic fracture (2) Traumatic pneumothorax (3) Fall from ladder (4) Lung contusion (5) Multiple rib fractures Assessment and Plan INJURIES: Multiple LEFT rib fxs LEFT PTX Tiny LEFT hemoPTX LEFT lower lobe contusion LEFT S2-S3 foramen fx (mild displaced) BILAT superior and inferior pubic rami fx (non-op) LEFT sacral Fx (non-op) LEFT acetabulum fx (non-displaced) (non-op) Diet: Regular, tolerating Pulm: IS, acapella, EZpap. Nebs. 2 L nasal cannula. Pain; Percocet. Neurontin. Discontinue Ativan. Activity: OOB. PT and OT evaluating. (WBAT RLE; TTWB LLE). Encourage patient's participation in rehabilitation every day. GI: Pepcid Bowel: Roseanne-colace. MOM. LBM 12/18 DVT: SCD's. Lovenox. Stat ABG showed respiratory alkalosis. Nasal cannula increased to 4L. CXR today unchanged. Serum sodium level checked and improved since adding Lasix and IVF. We'll continue to monitor. Labs in a.m. Hospitalist managing blood pressure. Added Procardia today. Plan of care discussed with patient at bedside. Case management consulted for discharge planning. Insurance denied [facility] as patient needs to participate in rehabilitation more. Can reevaluate when patient participates more. Attending Statement The exam, history, and the medical decision-making described in the above note were completed with the assistance of the mid-level provider. I reviewed and agree with the findings presented. I attest that I had a [id number] encounter with the patient on the same day, and personally performed and documented my assessment and findings in the medical record. chest injury stable, continue supportive care for acute and chronic lung disease Problem Qualifiers (1) Pelvic fracture: Qualified Code: S32.810A - Multiple closed fractures of pelvis with stable disruption of pelvic [place], initial encounter (2) Traumatic pneumothorax: Qualified Code: S27.0XXA - Traumatic pneumothorax, initial encounter (3) Fall from ladder: Qualified Code: W11.XXXA - Fall from ladder, initial encounter (4) Lung contusion: Qualified Code: S27.321A - Contusion of left lung, initial encounter (5) Multiple rib fractures: Qualified Code: S22.42XA - Closed fracture of multiple ribs of left side, initial encounter Ni Serrano Dec 18, 2016 17:33 Daniel Marcos MD Jan 01, 2017 01:35
[2016-12-18] MEDS ORDERED: FUROSEMIDE 20 MG/2 ML VIAL IV PUSH ONE (20:00)
[2016-12-18] MEDS: REMOVE OLD NICODERM (NICOTINE) PATCH TD SCH (21:00)
[2016-12-18] MEDS: MELATONIN 5 MG TAB PO PRN (21:23)
[2016-12-19] VITALS (9 sets, daily range): BP systolic 114–168; BP diastolic 58–74; PULSE 85–99; RESP 18–20; TEMP 96.7–98.1; O2SAT 92–96
[2016-12-19] MEDS: SODIUM CHLOR 0.9% 1000 ML INJ 1,000 ML IV SCH (01:23)
[2016-12-19] MEDS: NIFEdipine 20 MG CAP PO SCH ×3 (05:33→22:30)
[2016-12-19] MEDS: metroNIDAZOLE 500 MG TAB PO SCH ×3 (05:34→22:31)
[2016-12-19] MEDS: RESP: ALBUTEROL 2.5 MG/IPRATROPIUM 0.5 MG NEB (SCH) NEB ×3 (07:37→20:19)
[2016-12-19] MEDS: REMOVE OLD NICODERM (NICOTINE) PATCH TD SCH (07:54)
[2016-12-19] MEDS: NICOTINE 14 MG/24 HR PATCH TD SCH (07:54)
[2016-12-19] MEDS: METOPROLOL TARTRATE 50 MG TAB PO SCH ×2 (07:55→21:00)
[2016-12-19] MEDS: DOCUSATE SODIUM 50 MG/SENNA 8.6 MG TAB PO SCH ×2 (07:55→21:00)
[2016-12-19] MEDS: LACTULOSE SYRUP 20 GM/30 ML CUP PO SCH (07:55)
[2016-12-19] MEDS: LISINOPRIL 20 MG TAB PO SCH (07:55)
[2016-12-19] MEDS: GABAPENTIN 400 MG CAP PO SCH ×3 (07:55→18:03)
[2016-12-19] MEDS: FAMOTIDINE 20 MG TAB PO SCH ×2 (07:55→22:31)
[2016-12-19] MEDS: LEVOFLOXACIN 500 MG TAB PO SCH (07:56)
[2016-12-19] MEDS: FUROSEMIDE 20 MG/2 ML VIAL IV PUSH SCH (07:56)
[2016-12-19] MEDS: SODIUM CHLORIDE 0.9% FLUSH 5 ML FLUSH IVF SCH ×2 (09:00→21:00)
[2016-12-19] MEDS: oxyCODONE/ACETAMINOPHEN 10 MG/325 MG TAB PO PRN (09:13)
[2016-12-19 10:49] LABS: AUTOMATED NEUTROPHIL # 6.8 TH/MM3 (1.8-7.7); BASOPHIL # 0.1 TH/MM3 (0-0.2); EOSINOPHIL % 0.4 % (0.0-4.0); HEMATOCRIT 25.1 % (39.0-51.0); HEMO FLAGS DIFF FINAL; LYMPH % 8.6 % (9.0-44.0); LYMPHOCYTE # 0.8 TH/MM3 (1.0-4.8); MEAN CELL VOLUME 99.8 FL (80.0-100.0); MEAN CORPUSCULAR HEMOGLOBIN 34.1 PG (27.0-34.0); MEAN CORPUSCULAR HGB CONC 34.1 % (32.0-36.0); MONO % 13.2 % (0.0-8.0); NEUT % 76.8 % (16.0-70.0); PLATELET COUNT 300 TH/MM3 (150-450); RED BLOOD COUNT 2.51 MIL/MM3 (4.50-5.90); RED CELL DISTRIBUTION WIDTH 14.5 % (11.6-17.2); WHITE BLOOD COUNT 8.8 TH/MM3 (4.0-11.0)
[2016-12-19 11:03] LABS: BICARBONATE 24.9 MEQ/L (21.0-32.0); POTASSIUM 3.2 MEQ/L (3.5-5.1)
[2016-12-19 11:16] LABS: CALCIUM-PROTEIN CORRECTED 8.2 MG/DL (8.5-10.1)
[2016-12-19] MEDS: ENOXAPARIN SODIUM 40 MG/0.4 ML SYRINGE SQ SCH (12:11)
[2016-12-19] MEDS ORDERED: ACETAMINOPHEN 325 MG TAB PO PRN (12:30)
[2016-12-19] MEDS: KETOROLAC TROMETHAMINE 30 MG/ML (IVP) VIAL IV PUSH PRN ×2 (13:45→22:30)
--- NOTE | 2016-12-19 14:19 | HHI.PR ---
Subjective Remarks Breathing status is better today. He is more coherent. Stable on 2 L nasal cannula. He denies chest pain. Objective Vitals Vital Signs Date Time Temp Pulse Resp B/P Pulse Ox O2 Delivery O2 Flow Rate FiO2 12/19/16 12:20 96.7 88 20 128/60 92 12/19/16 08:07 Nasal Cannula 2.00 12/19/16 08:00 97.9 99 20 127/61 93 12/19/16 07:37 92 Nasal Cannula 4.00 12/19/16 04:24 98.1 90 18 166/74 96 12/19/16 00:58 98.1 92 18 168/72 95 12/18/16 21:04 92 Nasal Cannula 4.00 12/18/16 20:00 98.2 96 16 171/71 95 12/18/16 16:00 95.8 94 20 119/60 93 I/O 12/18/16 12/18/16 12/18/16 12/19/16 12/19/16 12/19/16 07:00 15:00 23:00 07:00 15:00 23:00 Intake Total 240 ml 480 ml 240 ml Output Total 600 ml 600 ml 800 ml Balance -360 ml -120 ml -560 ml Intake Oral 240 ml 480 ml 240 ml Output Urine Total 600 ml 600 ml 800 ml # Bowel Movements 1 Result Diagram: 12/19/16 1027 12/19/16 1027 Objective Remarks GENERAL: Patient is awake in no acute distress. CARDIOVASCULAR: Normal rate and regular rhythm without murmurs, gallops, or rubs. RESPIRATORY: Diminished breath robyn. Dressing on the left chest appear intact. He has diffuse rhonchi and wheezing. Worse on the right. GASTROINTESTINAL: Abdomen soft, non-tender, non-distended. Normal active bowel sounds MUSCULOSKELETAL: Extremities without cyanosis, or edema. NEURO: Confused. Moves all ext x4. Generalized weakness. PSYCH: Calm A/P Problem List: (1) Multiple rib fractures ICD Code: S22.49XA Status: Acute (2) Lung contusion ICD Code: S27.329A Status: Acute (3) Fall from ladder ICD Code: W11.XXXA Status: Acute (4) Traumatic pneumothorax ICD Code: S27.0XXA Status: Acute (5) Pelvic fracture ICD Code: S32.9XXA Status: Acute (6) HTN (hypertension) ICD Code: I10 Status: Acute (7) EtOH dependence ICD Code: F10.20 Status: Acute Assessment and Plan 58-year-old gentleman reportedly fell 20 feet off of a ladder onto his back without loss of consciousness. He may have been drinking. He was brought in as a trauma alert. Patient arrived alert with mild confusion his [place] Coma Scale was 14 complaining of back pain and left chest pain. Patient had multiple left-sided rib fractures with hemopneumothorax. Patient also had multiple pelvic fractures with sacral fracture nondisplaced acetabular fracture. Initially managed in critical care, improving clinically and was transferred to medical-surgical floor. Hospitalist service following for medical management. Trauma team as primary. EtOH abuse, dependence - S/P CIWA protocol. Patient went through DTs. Patient was counseled about complete cessation. He still has some encephalopathy. Hold Robaxin. Discussed with general surgery. Minimize sedating medications. Pneumonia/Left Lung empyema:s/p VATS, thoracotomy and decortication with evacuation of left empyema 12/05/16. S/P Diflucan IV, Zosyn and Vancomycin. Management per ID and CTS. Percocet 10mg every 4H breakthrough and Neurontin 300 mg 3 times a day added. Chest tube removed. - Nebulizer treatments scheduled. - Monitor respiratory status. - Continue Levaquin and Flagyl Acute respiratory failure on 12/18/15: Chest x-ray consistent with pulmonary edema. Probable CHF - Responding to Lasix. Improving. Continue Lasix. - Check 2-D echocardiogram. Macrocytic anemia - secondary to EtOH dependence - Thiamine, folate Status post fall, multiple rib fractures, pubic rib fractures, pelvic fractures with sacral fracture nondisplaced acetabular fracture - Orthopedic following patient. Weightbearing status was ordered. Recommended toe-touch weightbearing on the left leg. - Pain management. Patient with chronic pain even prior to this hospitalization. Pain is better controlled. Tobacco use -nicotine patch HTN : Better controlled, continue Lopressor 50 mg twice a day and lisinopril to 20 mg daily. No improvement with Amlodipine. Better with Nifedipine Q8Hrs. clonidine as needed and Vasotec when necessary. Prophylaxis: DVT prop B-SCDs GI: famotidine Problem Qualifiers (1) Multiple rib fractures: Qualified Code: S22.42XA - Closed fracture of multiple ribs of left side, initial encounter (2) Lung contusion: Qualified Code: S27.321A - Contusion of left lung, initial encounter (3) Fall from ladder: Qualified Code: W11.XXXA - Fall from ladder, initial encounter (4) Traumatic pneumothorax: Qualified Code: S27.0XXA - Traumatic pneumothorax, initial encounter (5) Pelvic fracture: Qualified Code: S32.810A - Multiple closed fractures of pelvis with stable disruption of pelvic [place], initial encounter Simon Lomax MD Dec 19, 2016 14:19
--- NOTE | 2016-12-19 17:36 | HHI.PR ---
Subjective Subjective Notes Still lethargic and confused today Objective Vitals/I&O Vital Signs Date Time Temp Pulse Resp B/P Pulse Ox O2 Delivery O2 Flow Rate FiO2 12/19/16 16:00 97.1 85 20 114/59 93 12/19/16 08:07 Nasal Cannula 2.00 12/18/16 12:40 21 Labs Laboratory Tests Test 12/19/16 10:27 White Blood Count 8.8 Red Blood Count 2.51 Hemoglobin 8.6 Hematocrit 25.1 Mean Corpuscular Volume 99.8 Mean Corpuscular Hemoglobin 34.1 Mean Corpuscular Hemoglobin 34.1 Concent Red Cell Distribution Width 14.5 Platelet Count 300 Mean Platelet Volume 7.3 Neutrophils (%) (Auto) 76.8 Lymphocytes (%) (Auto) 8.6 Monocytes (%) (Auto) 13.2 Eosinophils (%) (Auto) 0.4 Basophils (%) (Auto) 1.0 Neutrophils # (Auto) 6.8 Lymphocytes # (Auto) 0.8 Monocytes # (Auto) 1.2 Eosinophils # (Auto) 0.0 Basophils # (Auto) 0.1 CBC Comment DIFF FINAL Differential Comment Sodium Level 133 Potassium Level 3.2 Chloride Level 97 Carbon Dioxide Level 24.9 Anion Gap 11 Blood Urea Nitrogen 20 Creatinine 0.70 Estimat Glomerular Filtration 114 Rate Random Glucose 142 Calcium Level 7.4 Protein Corrected Calcium 8.2 Total Protein 5.7 Radiology Last Impressions Chest X-Ray 11/27/16 0600 Signed Impressions: Service Date/Time: Sunday, November 27, 2016 06:05 - CONCLUSION: 1. Left chest tube remains present and no pneumothorax is visualized. 2. There is a small left pleural effusion with associated volume loss and/or consolidation at the lung base. Neel Mahan MD Pelvis X-Ray 11/25/161950 Signed Impressions: Service Date/Time: November 19:44 - CONCLUSION: Bilateral pubic rami and left sacral fractures. Neel Moyer MD Head CT 11/25/161950 Signed Impressions: Service Date/Time: November 20:06 - CONCLUSION: Motion degraded study without convincing evidence of acute intracranial hemorrhage. Followup noncontrasted head CT suggested in 24 hours. Neel Moyer MD Chest CT 11/25/161950 Signed Impressions: Service Date/Time: November 20:10 - CONCLUSION: Multiple left rib fractures with moderate left pneumothorax, tiny left hemothorax and probable contusion of the left lower lobe. Neel Moyer MD Cervical Spine CT 11/25/161950 Signed Impressions: Service Date/Time: November 20:06 - CONCLUSION: 1. No fracture or subluxation of the cervical spine. 2. Degenerative changes with a chronic appearing disc osteophyte complex and uncovertebral/facet osteoarthritis causing severe spinal and bilateral foraminal stenosis at C6-C7. 3. Small, age-indeterminate posterior disc protrusion at C7/T1 causing mild spinal stenosis. Neel Moyer MD Abdomen/Pelvis CT 11/25/161950 Signed Impressions: Service Date/Time: November 20:10 - CONCLUSION: 1. No evidence of acute visceral or injury. 2. Fractures of the left body and ala of the sacrum with mildly displaced fracturing in the region of the left S2/S3 foramen. 3. Bilateral superior and inferior pubic rami fractures and a nondisplaced fracture of the left acetabulum. 4. Small presacral and left iliopsoas hematomas. I don't see active bleeding. Neel Moyer MD Thoracic Spine CT 11/25/16 0000 Signed Impressions: Service Date/Time: November 20:10 - CONCLUSION: Left T12 transverse process and facet fracture, minimally displaced. Multiple left posterior rib fractures and placed refer to the chest CT report. Thoracic vertebral bodies are intact. No subluxations. Neel Moyer MD Lumbar Spine CT 11/25/16 0000 Signed Impressions: Service Date/Time: November 20:10 - CONCLUSION: 1. Minimally to mildly displaced left transverse process fractures of L1-L4. 2. Multilevel degenerative changes as above. Large right paracentral disc fragment at L4/L5, probably nonacute. Neel Moyer MD Narrative Exam GENERAL: 61 year old disheveled male lying in bed. SKIN: Warm and dry. NECK: Trachea midline. No JVD. CARDIOVASCULAR: Regular rate and rhythm. RESPIRATORY: Lungs clear and diminished to auscultation. RR 30. GASTROINTESTINAL: Abdomen soft, non-distended and no tenderness to palpation. + BS. MUSCULOSKELETAL: Extremities without cyanosis, or edema. MAEW, equal hand chips screen tender. NEUROLOGICAL: Lethargic, oriented 2. Speech garbled. A/P Problem List: (1) Pelvic fracture (2) Traumatic pneumothorax (3) Fall from ladder (4) Lung contusion (5) Multiple rib fractures Assessment and Plan INJURIES: Multiple LEFT rib fxs LEFT PTX Tiny LEFT hemoPTX LEFT lower lobe contusion LEFT S2-S3 foramen fx (mild displaced) BILAT superior and inferior pubic rami fx (non-op) LEFT sacral Fx (non-op) LEFT acetabulum fx (non-displaced) (non-op) Diet: Regular, tolerating Pulm: IS, acapella, EZpap. Nebs. 2 L nasal cannula. Pain: Neurontin. Discontinued narcotics. Added Toradol and Tylenol when necessary for pain Activity: OOB. PT and OT evaluating. (WBAT RLE; TTWB LLE). Encourage patient's participation in rehabilitation every day. GI: Pepcid Bowel: Roseanne-colace. MOM. LBM 12/18 DVT: SCD's. Lovenox. Serum sodium level checked and improved since adding Lasix and IVF. We'll continue to monitor. K+ 3.2 today. 40 mEq PO 1. Labs in a.m. Hospitalist managing blood pressure. 20mg Lasix IV daily. Added 40mEq to potassium daily. Plan of care discussed with patient at bedside. Case management consulted for discharge planning. Insurance denied [facility] [facility] as patient needs to participate in rehabilitation more. Can reevaluate when patient participates more. Problem Qualifiers (1) Pelvic fracture: Qualified Code: S32.810A - Multiple closed fractures of pelvis with stable disruption of pelvic [place], initial encounter (2) Traumatic pneumothorax: Qualified Code: S27.0XXA - Traumatic pneumothorax, initial encounter (3) Fall from ladder: Qualified Code: W11.XXXA - Fall from ladder, initial encounter (4) Lung contusion: Qualified Code: S27.321A - Contusion of left lung, initial encounter (5) Multiple rib fractures: Qualified Code: S22.42XA - Closed fracture of multiple ribs of left side, initial encounter Ni Serrano Dec 19, 2016 17:36
[2016-12-19] MEDS ORDERED: POTASSIUM CHLORIDE 20 MEQ CONTROLLED RELEASE TAB PO ONE (17:45)
[2016-12-19] MEDS: SODIUM CHLORIDE 0.9% FLUSH 5 ML FLUSH IVF PRN (22:40)
[2016-12-19] MEDS: MELATONIN 5 MG TAB PO PRN (22:40)
[2016-12-20] VITALS (9 sets, daily range): BP systolic 118–137; BP diastolic 58–67; PULSE 80–97; RESP 18–24; TEMP 96.4–97.6; O2SAT 92–98
[2016-12-20] MEDS: NIFEdipine 20 MG CAP PO SCH ×3 (05:20→22:00)
[2016-12-20] MEDS: KETOROLAC TROMETHAMINE 30 MG/ML (IVP) VIAL IV PUSH PRN ×2 (05:20→12:15)
[2016-12-20] MEDS: metroNIDAZOLE 500 MG TAB PO SCH ×3 (05:20→21:33)
[2016-12-20] MEDS: SODIUM CHLOR 0.9% 1000 ML INJ 1,000 ML IV SCH (05:22)
[2016-12-20] MEDS: SODIUM CHLORIDE 0.9% FLUSH 5 ML FLUSH IVF PRN (05:24)
[2016-12-20] MEDS: RESP: ALBUTEROL 2.5 MG/IPRATROPIUM 0.5 MG NEB (SCH) NEB ×3 (07:34→20:59)
[2016-12-20 07:49] LABS: AUTOMATED NEUTROPHIL # 5.1 TH/MM3 (1.8-7.7); BASOPHIL # 0.1 TH/MM3 (0-0.2); BASOPHIL % 0.7 % (0.0-2.0); EOSINOPHIL # 0.1 TH/MM3 (0-0.4); EOSINOPHIL % 1.5 % (0.0-4.0); HEMATOCRIT 26.6 % (39.0-51.0); HEMO FLAGS DIFF FINAL; LYMPH % 12.1 % (9.0-44.0); LYMPHOCYTE # 0.8 TH/MM3 (1.0-4.8); MEAN CELL VOLUME 99.2 FL (80.0-100.0); MEAN CORPUSCULAR HEMOGLOBIN 33.8 PG (27.0-34.0); MEAN CORPUSCULAR HGB CONC 34.1 % (32.0-36.0); MONO % 11.8 % (0.0-8.0); NEUT % 73.9 % (16.0-70.0); PLATELET COUNT 292 TH/MM3 (150-450); RED BLOOD COUNT 2.69 MIL/MM3 (4.50-5.90); RED CELL DISTRIBUTION WIDTH 14.7 % (11.6-17.2); WHITE BLOOD COUNT 6.8 TH/MM3 (4.0-11.0)
[2016-12-20 08:11] LABS: BICARBONATE 25.4 MEQ/L (21.0-32.0); MAGNESIUM 1.1 MG/DL (1.5-2.5); POTASSIUM 3.1 MEQ/L (3.5-5.1)
[2016-12-20] MEDS ORDERED: POTASSIUM CL 40 MEQ/30 ML LIQ UDC PO ONE (08:30)
[2016-12-20 08:31] LABS: CALCIUM-PROTEIN CORRECTED 7.9 MG/DL (8.5-10.1)
[2016-12-20] MEDS: SODIUM CHLORIDE 0.9% FLUSH 5 ML FLUSH IVF SCH ×2 (09:00→21:33)
[2016-12-20] MEDS: FUROSEMIDE 20 MG/2 ML VIAL IV PUSH SCH (10:07)
[2016-12-20] MEDS: LACTULOSE SYRUP 20 GM/30 ML CUP PO SCH (10:08)
[2016-12-20] MEDS: FAMOTIDINE 20 MG TAB PO SCH ×2 (10:08→21:33)
[2016-12-20] MEDS: GABAPENTIN 400 MG CAP PO SCH ×3 (10:08→17:37)
[2016-12-20] MEDS: LISINOPRIL 20 MG TAB PO SCH (10:08)
[2016-12-20] MEDS: METOPROLOL TARTRATE 50 MG TAB PO SCH ×2 (10:08→21:33)
[2016-12-20] MEDS: DOCUSATE SODIUM 50 MG/SENNA 8.6 MG TAB PO SCH ×2 (10:08→21:00)
[2016-12-20] MEDS: LEVOFLOXACIN 500 MG TAB PO SCH (10:08)
[2016-12-20] MEDS: POTASSIUM CHLORIDE 20 MEQ CONTROLLED RELEASE TAB PO SCH (10:08)
[2016-12-20] MEDS: CALCIUM CARBONATE 500 MG CHEWABLE TAB CHEW SCH ×2 (10:08→21:33)
[2016-12-20] MEDS: NICOTINE 14 MG/24 HR PATCH TD SCH (10:09)
[2016-12-20] MEDS: ENOXAPARIN SODIUM 40 MG/0.4 ML SYRINGE SQ SCH (12:15)
--- NOTE | 2016-12-20 13:13 | HHI.PR ---
Subjective Remarks Patient reports that he is feeling okay today. Breathing status is unchanged. On 4 L nasal cannula. He denies any chest pressure. Objective Vitals Vital Signs Date Time Temp Pulse Resp B/P Pulse Ox O2 Delivery O2 Flow Rate FiO2 12/20/16 08:00 97.2 93 22 133/61 93 12/20/16 07:34 92 Nasal Cannula 4.00 12/20/16 04:11 96.7 80 18 126/58 94 12/20/16 00:28 96.7 84 18 124/60 93 12/20/16 00:00 Nasal Cannula 2.00 12/19/16 20:19 95 Nasal Cannula 4.00 12/19/16 20:00 96.8 88 18 127/58 92 12/19/16 18:00 87 12/19/16 16:00 97.1 85 20 114/59 93 12/19/16 14:45 18 I/O 12/19/16 12/19/16 12/19/16 12/20/16 12/20/16 12/20/16 07:00 15:00 23:00 07:00 15:00 23:00 Intake Total 240 ml 240 ml 360 ml 240 ml Output Total 800 ml 1100 ml 1200 ml 1000 ml Balance -560 ml -860 ml -840 ml -760 ml Intake Oral 240 ml 240 ml 360 ml 240 ml Output Urine Total 800 ml 1100 ml 1200 ml 1000 ml # Bowel Movements 1 1 Result Diagram: 12/20/16 0708 12/20/16 0708 Objective Remarks GENERAL: Patient is awake in no acute distress. CARDIOVASCULAR: Normal rate and regular rhythm without murmurs, gallops, or rubs. RESPIRATORY: Diminished breath robyn. Dressing on the left chest appear intact. He has diffuse rhonchi. More wheezing on the right. GASTROINTESTINAL: Abdomen soft, non-tender, non-distended. Normal active bowel sounds MUSCULOSKELETAL: Extremities without cyanosis, or edema. NEURO: Confused at times. Moves all ext x4. Generalized weakness. PSYCH: Calm A/P Problem List: (1) Multiple rib fractures ICD Code: S22.49XA Status: Acute (2) Lung contusion ICD Code: S27.329A Status: Acute (3) Fall from ladder ICD Code: W11.XXXA Status: Acute (4) Traumatic pneumothorax ICD Code: S27.0XXA Status: Acute (5) Pelvic fracture ICD Code: S32.9XXA Status: Acute (6) HTN (hypertension) ICD Code: I10 Status: Acute (7) EtOH dependence ICD Code: F10.20 Status: Acute Assessment and Plan 58-year-old gentleman reportedly fell 20 feet off of a ladder onto his back without loss of consciousness. He may have been drinking. He was brought in as a trauma alert. Patient arrived alert with mild confusion his [place] Coma Scale was 14 complaining of back pain and left chest pain. Patient had multiple left-sided rib fractures with hemopneumothorax. Patient also had multiple pelvic fractures with sacral fracture nondisplaced acetabular fracture. Initially managed in critical care, improving clinically and was transferred to medical-surgical floor. Hospitalist service following for medical management. Trauma team as primary. EtOH abuse, dependence - S/P CIWA protocol. Patient went through DTs. Patient was counseled about complete cessation. He still has some encephalopathy. Unclear what his baseline. Minimize sedating medications. Pneumonia/Left Lung empyema:s/p VATS, thoracotomy and decortication with evacuation of left empyema 12/05/16. S/P Diflucan IV, Zosyn and Vancomycin. Management per ID and CTS. Percocet 10mg every 4H breakthrough and Neurontin 300 mg 3 times a day added. Chest tube removed. - Nebulizer treatments scheduled. - Monitor respiratory status. - Continue Levaquin and Flagyl Respiratory failure on 12/18/15: Chest x-ray consistent with pulmonary edema. Probable CHF. No known history of CHF. - Responding to Lasix. Improving. Continue IV Lasix. -2-D echocardiogram is pending - Monitor I/O's. Macrocytic anemia - secondary to EtOH dependence - Thiamine, folate Status post fall, multiple rib fractures, pubic rib fractures, pelvic fractures with sacral fracture nondisplaced acetabular fracture - Orthopedic following patient. Weightbearing status was ordered. Recommended toe-touch weightbearing on the left leg. - Pain management. Patient with chronic pain even prior to this hospitalization. Pain is better controlled. Tobacco use -nicotine patch HTN : Better controlled, continue Lopressor 50 mg twice a day and lisinopril to 20 mg daily. No improvement with Amlodipine. Better with Nifedipine Q8Hrs. clonidine as needed and Vasotec when necessary. Prophylaxis: DVT prop B-SCDs GI: famotidine Discharge Planning Per primary once improved. No snf facility benefit. Not participating enough with PT for acute rehabilitation. Problem Qualifiers (1) Multiple rib fractures: Qualified Code: S22.42XA - Closed fracture of multiple ribs of left side, initial encounter (2) Lung contusion: Qualified Code: S27.321A - Contusion of left lung, initial encounter (3) Fall from ladder: Qualified Code: W11.XXXA - Fall from ladder, initial encounter (4) Traumatic pneumothorax: Qualified Code: S27.0XXA - Traumatic pneumothorax, initial encounter (5) Pelvic fracture: Qualified Code: S32.810A - Multiple closed fractures of pelvis with stable disruption of pelvic [place], initial encounter Simon Lomax MD Dec 20, 2016 13:13
--- NOTE | 2016-12-20 17:55 | HHI.PR ---
Subjective Subjective Notes Still with some confusion. Pain better controlled. Objective Vitals/I&O Vital Signs Date Time Temp Pulse Resp B/P Pulse Ox O2 Delivery O2 Flow Rate FiO2 12/20/16 12:00 96.4 86 24 118/58 98 12/20/16 07:34 Nasal Cannula 4.00 12/18/16 12:40 21 Labs Laboratory Tests Test 12/20/16 07:08 White Blood Count 6.8 Red Blood Count 2.69 Hemoglobin 9.1 Hematocrit 26.6 Mean Corpuscular Volume 99.2 Mean Corpuscular Hemoglobin 33.8 Mean Corpuscular Hemoglobin 34.1 Concent Red Cell Distribution Width 14.7 Platelet Count 292 Mean Platelet Volume 7.3 Neutrophils (%) (Auto) 73.9 Lymphocytes (%) (Auto) 12.1 Monocytes (%) (Auto) 11.8 Eosinophils (%) (Auto) 1.5 Basophils (%) (Auto) 0.7 Neutrophils # (Auto) 5.1 Lymphocytes # (Auto) 0.8 Monocytes # (Auto) 0.8 Eosinophils # (Auto) 0.1 Basophils # (Auto) 0.1 CBC Comment DIFF FINAL Differential Comment Sodium Level 135 Potassium Level 3.1 Chloride Level 100 Carbon Dioxide Level 25.4 Anion Gap 10 Blood Urea Nitrogen 15 Creatinine 0.61 Estimat Glomerular Filtration 134 Rate Random Glucose 127 Calcium Level 7.1 Protein Corrected Calcium 7.9 Phosphorus Level 2.5 Magnesium Level 1.1 Total Protein 5.6 Radiology Last Impressions Chest X-Ray 11/27/16 0600 Signed Impressions: Service Date/Time: Sunday, November 27, 2016 06:05 - CONCLUSION: 1. Left chest tube remains present and no pneumothorax is visualized. 2. There is a small left pleural effusion with associated volume loss and/or consolidation at the lung base. Neel Mahan MD Pelvis X-Ray 11/25/161950 Signed Impressions: Service Date/Time: November 19:44 - CONCLUSION: Bilateral pubic rami and left sacral fractures. Neel Moyer MD Head CT 11/25/161950 Signed Impressions: Service Date/Time: November 20:06 - CONCLUSION: Motion degraded study without convincing evidence of acute intracranial hemorrhage. Followup noncontrasted head CT suggested in 24 hours. Neel Moyer MD Chest CT 11/25/161950 Signed Impressions: Service Date/Time: November 20:10 - CONCLUSION: Multiple left rib fractures with moderate left pneumothorax, tiny left hemothorax and probable contusion of the left lower lobe. Neel Moyer MD Cervical Spine CT 11/25/161950 Signed Impressions: Service Date/Time: November 20:06 - CONCLUSION: 1. No fracture or subluxation of the cervical spine. 2. Degenerative changes with a chronic appearing disc osteophyte complex and uncovertebral/facet osteoarthritis causing severe spinal and bilateral foraminal stenosis at C6-C7. 3. Small, age-indeterminate posterior disc protrusion at C7/T1 causing mild spinal stenosis. Neel Moyer MD Abdomen/Pelvis CT 11/25/161950 Signed Impressions: Service Date/Time: November 20:10 - CONCLUSION: 1. No evidence of acute visceral or injury. 2. Fractures of the left body and ala of the sacrum with mildly displaced fracturing in the region of the left S2/S3 foramen. 3. Bilateral superior and inferior pubic rami fractures and a nondisplaced fracture of the left acetabulum. 4. Small presacral and left iliopsoas hematomas. I don't see active bleeding. Neel Moyer MD Thoracic Spine CT 11/25/16 0000 Signed Impressions: Service Date/Time: November 20:10 - CONCLUSION: Left T12 transverse process and facet fracture, minimally displaced. Multiple left posterior rib fractures and placed refer to the chest CT report. Thoracic vertebral bodies are intact. No subluxations. Neel Moyer MD Lumbar Spine CT 11/25/16 0000 Signed Impressions: Service Date/Time: November 20:10 - CONCLUSION: 1. Minimally to mildly displaced left transverse process fractures of L1-L4. 2. Multilevel degenerative changes as above. Large right paracentral disc fragment at L4/L5, probably nonacute. Neel Moyer MD Narrative Exam GENERAL: 61 year old disheveled male lying in bed. SKIN: Warm and dry. NECK: Trachea midline. No JVD. CARDIOVASCULAR: Regular rate and rhythm. RESPIRATORY: Lungs clear and diminished to auscultation. RR 26-30. GASTROINTESTINAL: Abdomen soft, non-distended and no tenderness to palpation. + BS. MUSCULOSKELETAL: Extremities without cyanosis, or edema. MAEW, equal hand switch tender. NEUROLOGICAL: Alert, oriented 2. Speech garbled. A/P Problem List: (1) Pelvic fracture (2) Traumatic pneumothorax (3) Fall from ladder (4) Lung contusion (5) Multiple rib fractures Assessment and Plan INJURIES: Multiple LEFT rib fxs LEFT PTX Tiny LEFT hemoPTX LEFT lower lobe contusion LEFT S2-S3 foramen fx (mild displaced) BILAT superior and inferior pubic rami fx (non-op) LEFT sacral Fx (non-op) LEFT acetabulum fx (non-displaced) (non-op) Diet: Regular, tolerating Pulm: IS, acapella, EZpap. Nebs. 2 L nasal cannula. Pain: Neurontin. Toradol and Tylenol when necessary for pain Activity: OOB. PT and OT evaluating. (WBAT RLE; TTWB LLE). Patient still with minimal participation in PT. GI: Pepcid Bowel: Roseanne-colace. MOM. LBM 12/18 DVT: SCD's. Lovenox. Hospitalist following for medical management. Trauma injuries resolved. Plan of care discussed with patient at bedside. Educated and encouraged patient participation in rehab. Case management consulted for discharge planning. Insurance denied [facility] as patient needs to participate in rehabilitation more. Can reevaluate when patient participates more. Problem Qualifiers (1) Pelvic fracture: Qualified Code: S32.810A - Multiple closed fractures of pelvis with stable disruption of pelvic [place], initial encounter (2) Traumatic pneumothorax: Qualified Code: S27.0XXA - Traumatic pneumothorax, initial encounter (3) Fall from ladder: Qualified Code: W11.XXXA - Fall from ladder, initial encounter (4) Lung contusion: Qualified Code: S27.321A - Contusion of left lung, initial encounter (5) Multiple rib fractures: Qualified Code: S22.42XA - Closed fracture of multiple ribs of left side, initial encounter Ni Serrano Dec 20, 2016 17:55
[2016-12-20] MEDS: REMOVE OLD NICODERM (NICOTINE) PATCH TD SCH (21:00)
--- NOTE | 2016-12-20 21:01 | EC ---
Study Study Date:12/20/2016 STUDY CONCLUSIONS SUMMARY - Left ventricle: The cavity size was normal. Wall thickness was normal. Systolic function was normal. The estimated ejection fraction was 55%. Wall motion was normal; there were no regional wall motion abnormalities. - Aortic valve: Trace regurgitation. - Mitral valve: Mild regurgitation. - Pulmonary arteries: PA peak pressure: 32mm Hg (S). If LV function is below 40, please consider prescribing an ACEI or ARB or document rationale for non-use. PROCEDURE DATA STUDY STATUS: Elective. Procedure: Transthoracic echocardiography. Image quality was good. Scanning was performed from the parasternal, apical, and subcostal acoustic windows. Study completion: The patient tolerated the procedure well. Transthoracic echocardiography. M-mode, complete 2D, complete spectral Doppler, and color Doppler. Patient status: Inpatient. CARDIAC ANATOMY LEFT VENTRICLE: The cavity size was normal. Wall thickness was normal. Systolic function was normal. The estimated ejection fraction was 55%. Wall motion was normal; there were no regional wall motion abnormalities. AORTIC VALVE: Trileaflet; normal thickness leaflets. Doppler: Transvalvular velocity was within the normal range. There was no stenosis. Trace regurgitation. AORTA: Aortic root: The aortic root was normal in size. MITRAL VALVE: Structurally normal valve. Doppler: Transvalvular velocity was within the normal range. There was no evidence for stenosis. Mild regurgitation. Peak gradient: 4mm Hg (D). LEFT ATRIUM: The atrium was normal in size. RIGHT VENTRICLE: The cavity size was normal. Wall thickness was normal. PULMONIC VALVE: Doppler: Transvalvular velocity was within the normal range. There was no evidence for stenosis. No regurgitation. TRICUSPID VALVE: Structurally normal valve. Doppler: Transvalvular velocity was within the normal range. Trace regurgitation. PULMONARY ARTERY: The main pulmonary artery was normal-sized. Systolic pressure was within the normal range. RIGHT ATRIUM: The atrium was normal in size. PERICARDIUM: There was no pericardial effusion. SYSTEMIC VEINS: Inferior vena cava: The vessel was normal in size. BASIC MEASUREMENTS ADULT Normal Left ventricle LV internal dimension, ED, chordal level, 50.5 mm 43-52 PLAX LV internal dimension, ES, chordal level, *38.7 mm 23-38 PLAX Fractional shortening, chordal level, PLAX *23 % >29 LV posterior wall thickness, ED 7.73 mm IVS/LVPW ratio, ED 1.12 <1.3 Ventricular septum Septal thickness, ED 8.62 mm Aortic valve Leaflet separation 19 mm 15-26 Left atrium Anterior-posterior dimension 33 mm Right ventricle RV internal dimension, ED, PLAX 22 mm 19-38 BASIC MEASUREMENTS ADULT Normal Aortic valve Leaflet separation 19 mm 15-26 Aorta Root diameter, ED 32 mm 20-37 Left atrium Anterior-posterior dimension, ES 35 mm 19-40 LA/aortic root ratio 1.09 DOPPLER MEASUREMENTS ADULT Normal Main pulmonary artery Pressure, S *32 mm Hg =30 Aortic valve Peak velocity, S 151 cm/s Mitral valve Peak E-wave velocity 105 cm/s Peak A-wave velocity 117 cm/s Peak gradient, D 4 mm Hg Peak E/A ratio 0.9 Tricuspid valve Regurgitant peak velocity 258 cm/s Peak RV-RA gradient, S 27 mm Hg Maximal regurgitant velocity 258 cm/s Systemic veins Estimated CVP 5 mm Hg Right ventricle RV pressure, S *32 mm Hg <30 LEGEND: Mean values are shown as u=mean value. Asterisk (*) madsen values outside specified normal range. Prepared and signed by Anson Watson [id number]
[2016-12-21] VITALS (8 sets, daily range): BP systolic 120–155; BP diastolic 64–84; PULSE 88–99; RESP 18–20; TEMP 95.7–98.1; O2SAT 92–99
[2016-12-21] MEDS: KETOROLAC TROMETHAMINE 30 MG/ML (IVP) VIAL IV PUSH PRN ×3 (02:43→17:33)
[2016-12-21] MEDS: NIFEdipine 20 MG CAP PO SCH ×3 (06:45→22:00)
[2016-12-21] MEDS: metroNIDAZOLE 500 MG TAB PO SCH ×3 (06:45→22:00)
[2016-12-21 07:57] LABS: HEMATOCRIT 29.9 % (39.0-51.0); MEAN CELL VOLUME 98.7 FL (80.0-100.0); MEAN CORPUSCULAR HEMOGLOBIN 33.4 PG (27.0-34.0); MEAN CORPUSCULAR HGB CONC 33.8 % (32.0-36.0); PLATELET COUNT 304 TH/MM3 (150-450); RED BLOOD COUNT 3.03 MIL/MM3 (4.50-5.90); RED CELL DISTRIBUTION WIDTH 14.9 % (11.6-17.2); REVIEW FLAG FINAL
[2016-12-21] MEDS: RESP: ALBUTEROL 2.5 MG/IPRATROPIUM 0.5 MG NEB (SCH) NEB ×3 (08:02→20:55)
[2016-12-21 08:25] LABS: BICARBONATE 28.3 MEQ/L (21.0-32.0); POTASSIUM 3.2 MEQ/L (3.5-5.1)
[2016-12-21 09:16] LABS: CALCIUM-PROTEIN CORRECTED 7.2 MG/DL (8.5-10.1)
[2016-12-21] MEDS: LACTULOSE SYRUP 20 GM/30 ML CUP PO SCH (09:16)
[2016-12-21] MEDS: POTASSIUM CHLORIDE 20 MEQ CONTROLLED RELEASE TAB PO SCH (09:17)
[2016-12-21] MEDS: CALCIUM CARBONATE 500 MG CHEWABLE TAB CHEW SCH ×2 (09:17→22:00)
[2016-12-21] MEDS: METOPROLOL TARTRATE 50 MG TAB PO SCH ×2 (09:17→21:00)
[2016-12-21] MEDS: LEVOFLOXACIN 500 MG TAB PO SCH (09:17)
[2016-12-21] MEDS: NICOTINE 14 MG/24 HR PATCH TD SCH (09:18)
[2016-12-21] MEDS: DOCUSATE SODIUM 50 MG/SENNA 8.6 MG TAB PO SCH ×2 (09:19→21:00)
[2016-12-21] MEDS: GABAPENTIN 400 MG CAP PO SCH ×4 (09:19→17:33)
[2016-12-21] MEDS: LISINOPRIL 20 MG TAB PO SCH (09:19)
[2016-12-21] MEDS: FAMOTIDINE 20 MG TAB PO SCH ×2 (09:19→22:00)
[2016-12-21] MEDS: REMOVE OLD NICODERM (NICOTINE) PATCH TD SCH (09:19)
[2016-12-21] MEDS: SODIUM CHLORIDE 0.9% FLUSH 5 ML FLUSH IVF SCH ×2 (09:20→22:00)
[2016-12-21] MEDS: FUROSEMIDE 20 MG/2 ML VIAL IV PUSH SCH (09:22)
[2016-12-21] MEDS: ENOXAPARIN SODIUM 40 MG/0.4 ML SYRINGE SQ SCH (11:11)
--- NOTE | 2016-12-21 11:27 | HHI.PR ---
Subjective Remarks The patient was resting comfortably in bed. He had no acute complaints at this time. He denied any shortness of breath. He wanted the bed lower. Discussed with nursing. Objective Vitals Vital Signs Date Time Temp Pulse Resp B/P Pulse Ox O2 Delivery O2 Flow Rate FiO2 12/21/16 09:30 95 Nasal Cannula 4.00 21 Humidified 12/21/16 08:03 94 Nasal Cannula 4.00 12/21/16 08:00 97.0 96 20 138/83 95 12/21/16 05:37 98.1 96 18 143/73 96 12/21/16 00:52 98.0 88 18 155/84 92 12/20/16 21:00 92 Nasal Cannula 4.00 12/20/16 20:29 97.6 95 20 126/66 94 12/20/16 20:00 97 12/20/16 20:00 Nasal Cannula 2.00 12/20/16 16:00 96.8 94 22 137/67 94 12/20/16 12:00 96.4 86 24 118/58 98 I/O 12/20/16 12/20/16 12/20/16 12/21/16 12/21/16 12/21/16 07:00 15:00 23:00 07:00 15:00 23:00 Intake Total 240 ml 480 ml Output Total 1000 ml 1925 ml 1500 ml Balance -760 ml -1445 ml -1500 ml Intake Oral 240 ml 480 ml Output Urine Total 1000 ml 1925 ml 1500 ml # Bowel Movements 1 1 Result Diagram: 12/21/16 0734 12/21/16 0734 Imaging Last Impressions Chest X-Ray 12/18/16 0000 Signed Impressions: Service Date/Time: Sunday, December 18, 2016 12:15 - CONCLUSION: No significant interval change of bilateral parenchymal pulmonary opacity indicating asymmetric pulmonary edema versus infection. Aroldo Panchal MD Shoulder X-Ray 12/13/16 1203 Signed Impressions: Service Date/Time: Tuesday, December 13, 2016 13:51 - CONCLUSION: Rib fractures with a small pleural effusion on the left. There is no evidence of shoulder fracture. Ralph Garcias MD FACR Chest CT 12/03/16 0000 Signed Impressions: Service Date/Time: Saturday, December 03, 2016 21:59 - CONCLUSION: 1. Left chest tube is present with the tip of the chest tube mostly above loculated air and fluid in the left pleural space. Cannot exclude a left-sided empyema. Patchy bronchopneumonia also suspected, right greater than left. Zachery Aquino MD Pelvis X-Ray 11/30/16 0000 Signed Impressions: Service Date/Time: Wednesday, November 30, 2016 10:32 - CONCLUSION: 1. Bilateral pubic rami fractures. 2. Apparent nondisplaced fracture through the left sacrum. Jovan Chu MD Chest Tube Insertion 11/30/16 0000 Signed Impressions: Service Date/Time: Wednesday, November 30, 2016 09:48 - CONCLUSION: Uncomplicated chest tube placement as above. Drake Corona MD Head CT 11/25/161950 Signed Impressions: Service Date/Time: November 20:06 - CONCLUSION: Motion degraded study without convincing evidence of acute intracranial hemorrhage. Followup noncontrasted head CT suggested in 24 hours. Neel Moyer MD Cervical Spine CT 11/25/161950 Signed Impressions: Service Date/Time: November 20:06 - CONCLUSION: 1. No fracture or subluxation of the cervical spine. 2. Degenerative changes with a chronic appearing disc osteophyte complex and uncovertebral/facet osteoarthritis causing severe spinal and bilateral foraminal stenosis at C6-C7. 3. Small, age-indeterminate posterior disc protrusion at C7/T1 causing mild spinal stenosis. Neel Moyer MD Abdomen/Pelvis CT 11/25/161950 Signed Impressions: Service Date/Time: November 20:10 - CONCLUSION: 1. No evidence of acute visceral or injury. 2. Fractures of the left body and ala of the sacrum with mildly displaced fracturing in the region of the left S2/S3 foramen. 3. Bilateral superior and inferior pubic rami fractures and a nondisplaced fracture of the left acetabulum. 4. Small presacral and left iliopsoas hematomas. I don't see active bleeding. Neel Moyer MD Thoracic Spine CT 11/25/16 0000 Signed Impressions: Service Date/Time: November 20:10 - CONCLUSION: Left T12 transverse process and facet fracture, minimally displaced. Multiple left posterior rib fractures and placed refer to the chest CT report. Thoracic vertebral bodies are intact. No subluxations. Neel Moyer MD Lumbar Spine CT 11/25/16 0000 Signed Impressions: Service Date/Time: November 20:10 - CONCLUSION: 1. Minimally to mildly displaced left transverse process fractures of L1-L4. 2. Multilevel degenerative changes as above. Large right paracentral disc fragment at L4/L5, probably nonacute. Neel Moyer MD Objective Remarks GENERAL: Patient is awake in no acute distress. HEENT: NC, AT. CARDIOVASCULAR: Normal rate and regular rhythm without murmurs, gallops, or rubs. RESPIRATORY: Diminished breath bilaterally. Dressing on the left chest appears intact. He has diffuse rhonchi. GASTROINTESTINAL: Abdomen soft, non-tender, non-distended. Normal active bowel sounds MUSCULOSKELETAL: Extremities without cyanosis, or edema. NEURO: Confused at times. Moves all ext x4. Generalized weakness. PSYCH: Calm. Medications and IVs Current Medications Medications (Trade) Dose Ordered Sig/Jason Route Start Time Stop Time Status Last Admin (Zofran Inj) 4 mg Q6H PRN IV 11/25/16 20:45 11/28/16 15:59 (Pill Splitter) 1 ea UNSCH PRN OTHER 11/25/16 22:45 (Habitrol 14 Mg Patch.24 Hr) 1 patch DAILY TD 11/26/16 10:00 12/21/16 09:18 Miscellaneous Information 1 HS TD 11/26/16 21:00 12/21/16 09:19 (Romazicon Inj) 0.2 mg Q1M PRN IV PUSH 11/30/16 15:15 (Catapres) 0.1 mg Q6H PRN PO 12/01/16 11:00 12/17/16 22:06 (Roseanne-Colace) 1 tab BID PO 12/02/16 09:00 12/21/16 09:19 (NS Flush) 2 ml UNSCH PRN IVF 12/05/16 12:15 12/20/16 05:24 (NS Flush) 2 ml BID IVF 12/05/16 12:15 12/21/16 09:20 (Narcan Inj) 0.4 mg UNSCH PRN IV 12/05/16 12:15 (Lovenox Inj) 40 mg Q24H SQ 12/06/16 11:00 12/21/16 11:11 (Levaquin) 500 mg DAILY PO 12/06/16 17:00 12/21/16 09:17 (Melatonin) 5 mg HS PRN PO 12/07/16 00:15 12/19/16 22:40 (ZyPREXA ZYDIS ODT) 5 mg HS PRN PO 12/07/16 00:15 12/07/16 01:17 (Flagyl) 500 mg Q8HR PO 12/07/16 14:00 12/21/16 06:45 (Milk Of Magnesia Liq) 30 ml DAILY PRN PO 12/09/16 09:00 (Lactulose Liq) 30 ml DAILY PO 12/09/16 09:00 12/21/16 09:16 (Prinivil) 20 mg DAILY PO 12/10/16 09:00 12/21/16 09:19 (Lopressor) 50 mg Q12HR PO 12/10/16 13:00 12/21/16 09:17 (Neurontin) 400 mg TID PO 12/14/16 13:00 12/21/16 09:19 (Pepcid) 20 mg BID PO 12/14/16 21:00 12/21/16 09:19 (Robaxin) 750 mg TID PO 12/14/16 18:00 Hold 12/18/16 10:33 (Lasix Inj) 20 mg DAILY IV PUSH 12/18/16 09:00 12/21/16 09:22 (Procardia) 20 mg Q8HR PO 12/18/16 14:00 12/21/16 06:45 (Apresoline Inj) 20 mg Q4H PRN IV PUSH 12/18/16 14:15 (Tylenol) 650 mg Q4H PRN PO 12/19/16 12:30 (Toradol Inj) 30 mg Q6H PRN IV PUSH 12/19/16 12:30 12/24/16 12:29 12/21/16 09:20 (KCl) 40 meq DAILY PO 12/20/16 09:00 12/21/16 09:17 Calcium Carbonate 500 mg 500 mg Q12HR CHEW 12/20/16 09:00 12/21/16 09:17 (Calcium Gluconate Inj/D5W 100 ml Inj) 120 ml @ 120 mls/hr ONCE ONCE IV 12/21/16 12:00 12/21/16 12:59 12/21/16 11:10 A/P Problem List: (1) Multiple rib fractures ICD Code: S22.49XA Status: Acute (2) Lung contusion ICD Code: S27.329A Status: Acute (3) Fall from ladder ICD Code: W11.XXXA Status: Acute (4) Traumatic pneumothorax ICD Code: S27.0XXA Status: Acute (5) Pelvic fracture ICD Code: S32.9XXA Status: Acute (6) HTN (hypertension) ICD Code: I10 Status: Acute (7) EtOH dependence ICD Code: F10.20 Status: Acute Assessment and Plan 58-year-old gentleman reportedly fell 20 feet off of a ladder onto his back without loss of consciousness. He may have been drinking. He was brought in as a trauma alert. Patient arrived alert with mild confusion, his [place] Coma Scale was 14 complaining of back pain and left chest pain. Patient had multiple left-sided rib fractures with hemopneumothorax. Patient also had multiple pelvic fractures with sacral fracture nondisplaced acetabular fracture. Initially managed in critical care, improving clinically and was transferred to medical-surgical floor. Hospitalist service following for medical management. Trauma team is primary. EtOH abuse, dependence S/P [facility] protocol. Patient went through DTs. Patient was counseled about complete cessation. He still has some encephalopathy. Unclear what his baseline is. - Minimize sedating medications. - cessation resources upon discharge. Pneumonia/Left lung empyema S/p VATS, thoracotomy and decortication with evacuation of left empyema . S/P Diflucan IV, Zosyn and Vancomycin. Chest tube removed. - Management per ID and CTS. - Percocet 10mg every 4H breakthrough and Neurontin 300 mg 3 times a day added. - Nebulizer treatments scheduled. - Monitor respiratory status, continue Acapella. - Continue Levaquin and Flagyl per ID. Respiratory failure Chest x-ray consistent with pulmonary edema. Echo with normal EF. - continue IV Lasix. Improving. - Monitor I/O's. - oxygen and nebs as needed. - repeat CXR 12/21. Check a sputum culture. Macrocytic anemia Secondary to EtOH dependence. - Thiamine, folate. Status post fall Sustained multiple rib fractures, pubic rib fractures, pelvic fractures with sacral fracture nondisplaced acetabular fracture. - Orthopedic following patient. Weightbearing status was ordered. Recommended toe-touch weightbearing on the left leg. - Pain management. Patient with chronic pain even prior to this hospitalization. Pain is better controlled. Tobacco use - nicotine patch. HTN Better controlled. - continue Lopressor 50 mg twice a day and lisinopril 20 mg daily. No improvement with Amlodipine. Better with Nifedipine Q8Hrs. - clonidine as needed and Vasotec when necessary. Electrolyte derangements Possibly s/t decreased PO intake. - replete and monitor. Prophylaxis: SCDs. Discharge Planning Per primary. Problem Qualifiers (1) Multiple rib fractures: Qualified Code: S22.42XA - Closed fracture of multiple ribs of left side, initial encounter (2) Lung contusion: Qualified Code: S27.321A - Contusion of left lung, initial encounter (3) Fall from ladder: Qualified Code: W11.XXXA - Fall from ladder, initial encounter (4) Traumatic pneumothorax: Qualified Code: S27.0XXA - Traumatic pneumothorax, initial encounter (5) Pelvic fracture: Qualified Code: S32.810A - Multiple closed fractures of pelvis with stable disruption of pelvic [place], initial encounter Jovan Clifford DO Dec 21, 2016 11:27
[2016-12-21] MEDS ORDERED: POTASSIUM CHLORIDE 20 MEQ CONTROLLED RELEASE TAB PO ONE (11:30)
[2016-12-21] MEDS ORDERED: CALCIUM GLUCONATE INJ 2 GM in DEXTROSE 5% IN WATER 100ML INJ 100 ML IV ONE ×2 (12:00)
--- NOTE | 2016-12-21 13:10 | RADRPT ---
EXAM DATE/TIME: 12/21/2016 12:21 [facility] COMPARISON: Prior study 12/18/16, use for comparison. INDICATIONS: Shortness of breath MEDICAL HISTORY: Hemothorax, pneumothorax SURGICAL HISTORY: Thoracotomy ENCOUNTER: Subsequent ACUITY: 3 weeks PAIN SCORE: Non-responsive. LOCATION: Bilateral chest FINDINGS: A single view of the chest demonstrates there is patchy infiltrates bilaterally slightly improved sin ce 12/18/16 exam. Heart and mediastinum remains unremarkable. There has been previous surgical fusio n. No visible pneumothorax. CONCLUSION: Patchy infiltrates right greater than left improvement since 12/18/16. Flako Salguero MD on December 21, 2016 at 12:57 Board Certified Radiologist. This report was verified electronically.
[2016-12-21] MEDS ORDERED: FUROSEMIDE 40 MG/4 ML VIAL IV PUSH ONE (22:45)
[2016-12-21] MEDS ORDERED: MAGNESIUM SULFATE 1 GM PREMIX 100 ML IV SCH (22:45)
[2016-12-21 23:45] LABS: AUTOMATED NEUTROPHIL # 4.9 TH/MM3 (1.8-7.7); BASOPHIL # 0.1 TH/MM3 (0-0.2); BASOPHIL % 1.1 % (0.0-2.0); EOSINOPHIL # 0.1 TH/MM3 (0-0.4); EOSINOPHIL % 1.7 % (0.0-4.0); HEMATOCRIT 30.8 % (39.0-51.0); HEMO FLAGS DIFF FINAL; LYMPH % 17.1 % (9.0-44.0); LYMPHOCYTE # 1.2 TH/MM3 (1.0-4.8); MEAN CELL VOLUME 99.2 FL (80.0-100.0); MEAN CORPUSCULAR HEMOGLOBIN 33.4 PG (27.0-34.0); MEAN CORPUSCULAR HGB CONC 33.6 % (32.0-36.0); NEUT % 68.1 % (16.0-70.0); PLATELET COUNT 289 TH/MM3 (150-450); RED CELL DISTRIBUTION WIDTH 14.7 % (11.6-17.2); WHITE BLOOD COUNT 7.1 TH/MM3 (4.0-11.0)
[2016-12-22] VITALS (12 sets, daily range): BP systolic 101–180; BP diastolic 53–84; PULSE 85–111; RESP 16–43; TEMP 96.6–101.4; O2SAT 90–100
[2016-12-22 00:09] LABS: BICARBONATE 28.3 MEQ/L (21.0-32.0); POTASSIUM 3.7 MEQ/L (3.5-5.1)
[2016-12-22 00:32] LABS: CALCIUM-PROTEIN CORRECTED 7.2 MG/DL (8.5-10.1)
[2016-12-22] MEDS ORDERED: CALCIUM GLUCONATE 10% 1 GM/10 ML VIAL IV PUSH ONE (00:45)
[2016-12-22] MEDS ORDERED: POTASSIUM CHLOR 20 MEQ PREMIX 100 ML IV SCH (01:00)
[2016-12-22] MEDS ORDERED: CALCIUM GLUCONATE INJ 2 GM in SODIUM CHLORIDE 0.9% INJ 100 ML IV ONE (01:00)
--- NOTE | 2016-12-22 01:58 | RADRPT ---
EXAM DATE/TIME: 12/22/2016 01:37 [facility] COMPARISON: No previous studies available for comparison. INDICATIONS : Altered mental status RADIATION DOSE: 52.13 CTDIvol (mGy) MEDICAL HISTORY : None SURGICAL HISTORY : Fusion, cervical. ENCOUNTER: Initial ACUITY: 2 days PAIN SCALE: Non-responsive LOCATION: Bilateral cranial TECHNIQUE: Multiple contiguous axial images were obtained of the head. Using automated exposure control and adj ustment of the mA and/or kV according to patient size, radiation dose was kept as low as reasonably a chievable to obtain optimal diagnostic quality images. FINDINGS: CEREBRUM: The ventricles are normal for age. No evidence of midline shift, mass lesion, hemorrhage or acute in farction. No extra-axial fluid collections are seen. POSTERIOR FOSSA: The cerebellum and brainstem are intact. The 4th ventricle is midline. The cerebellopontine angle i s unremarkable. EXTRACRANIAL: The visualized portion of the orbits is intact. SKULL: The calvaria is intact. No evidence of skull fracture. CONCLUSION: 1. No acute intracranial abnormalities. No significant change from November 2. Zachery Aquino MD on December 22, 2016 at 1:53 Board Certified Radiologist. This report was verified electronically.
[2016-12-22] MEDS: metroNIDAZOLE 500 MG TAB PO SCH (05:45)
[2016-12-22] MEDS: NIFEdipine 20 MG CAP PO SCH ×3 (06:00→21:48)
--- NOTE | 2016-12-22 07:04 | PD.ORT.PN ---
Subjective Subjective Remarks Difficulty with confusion and change mental state of mind. Is unable to enunciate words. Will follow commands with prompting Objective Vitals Vital Signs Date Time Temp Pulse Resp B/P Pulse Ox O2 Delivery O2 Flow Rate FiO2 12/22/16 05:35 96.6 111 22 165/75 90 12/22/16 01:16 98.4 98 20 142/71 94 12/21/16 20:57 94 Nasal Cannula 5.00 12/21/16 20:45 97.4 98 18 120/73 98 12/21/16 19:30 Nasal Cannula 4.00 Humidified 12/21/16 15:45 95.7 89 20 128/64 96 12/21/16 12:00 97.5 99 20 141/72 99 12/21/16 09:30 95 Nasal Cannula 4.00 21 Humidified 12/21/16 08:03 94 Nasal Cannula 4.00 12/21/16 08:00 97.0 96 20 138/83 95 I/O 12/21/16 12/21/16 12/21/16 12/22/16 12/22/16 12/22/16 07:00 15:00 23:00 07:00 15:00 23:00 Intake Total 0 ml Output Total 1500 ml 1650 ml Balance -1500 ml 0 ml -1650 ml IV Total 0 ml Output Urine Total 1500 ml 1650 ml # Bowel Movements 1 3 Result Diagram: 12/21/16 2315 12/21/16 2315 Imaging Last 24 hours Impressions Chest X-Ray 11/26/16 0000 Signed Impressions: Service Date/Time: Saturday, November 26, 2016 03:32 - CONCLUSION: 1. Left chest tube remains present and there is likely a tiny left apical pneumothorax present. There is stable air along the left chest wall. 2. Stable left lung base airspace opacity representing either atelectasis or consolidation. Neel Mahan MD Pelvis X-Ray 11/25/161950 Signed Impressions: Service Date/Time: November 19:44 - CONCLUSION: Bilateral pubic rami and left sacral fractures. Neel Moyer MD Head CT 11/25/161950 Signed Impressions: Service Date/Time: November 20:06 - CONCLUSION: Motion degraded study without convincing evidence of acute intracranial hemorrhage. Followup noncontrasted head CT suggested in 24 hours. Neel Moyer MD Chest X-Ray 11/25/161950 Signed Impressions: Service Date/Time: November 19:44 - CONCLUSION: Multiple posterior left rib fractures with a left base parenchymal contusion. Neel Moyer MD Chest CT 11/25/161950 Signed Impressions: Service Date/Time: November 20:10 - CONCLUSION: Multiple left rib fractures with moderate left pneumothorax, tiny left hemothorax and probable contusion of the left lower lobe. Neel Moyer MD Cervical Spine CT 11/25/161950 Signed Impressions: Service Date/Time: November 20:06 - CONCLUSION: 1. No fracture or subluxation of the cervical spine. 2. Degenerative changes with a chronic appearing disc osteophyte complex and uncovertebral/facet osteoarthritis causing severe spinal and bilateral foraminal stenosis at C6-C7. 3. Small, age-indeterminate posterior disc protrusion at C7/T1 causing mild spinal stenosis. Neel Moyer MD Abdomen/Pelvis CT 11/25/161950 Signed Impressions: Service Date/Time: November 20:10 - CONCLUSION: 1. No evidence of acute visceral or injury. 2. Fractures of the left body and ala of the sacrum with mildly displaced fracturing in the region of the left S2/S3 foramen. 3. Bilateral superior and inferior pubic rami fractures and a nondisplaced fracture of the left acetabulum. 4. Small presacral and left iliopsoas hematomas. I don't see active bleeding. Neel Moyer MD Objective Remarks Is unable to enunciate words. Will follow commands. Pelvis: slight discomfort with movement of legs. NVI distally Assessment & Plan Assessment and Plan 1) Left Sacral Fxs 2) Bilateral sup/inf rami fxs -nonop -WBAT on RLE -TTWB LLE pain control Lovenox New x-rays today for pelvis with inlet and outlet views Medical to workup confusion and mental changes Follow-up with Dr. Scott or PA in 2 weeks WADE MEMBRENO PA-C Dec 22, 2016 07:04
[2016-12-22] MEDS: RESP: ALBUTEROL 2.5 MG/IPRATROPIUM 0.5 MG NEB (SCH) NEB ×4 (07:48→20:45)
[2016-12-22] MEDS ORDERED: MAGNESIUM SULFATE 1 GM PREMIX 100 ML IV SCH (08:00)
[2016-12-22] MEDS ORDERED: FUROSEMIDE 40 MG/4 ML VIAL ONE (08:45)
[2016-12-22 08:48] LABS: BLOOD GAS CARBOXYHEMOGLOBIN 2.2 % (0-4); BLOOD GAS HCO3 28 mmol/L (22-26); BLOOD GAS METHEMOGLOBIN 0.7 % (0-2); BLOOD GAS O2 HGB SATURATION 92 % (90-100); BLOOD GAS OXYGEN CONTENT 13.7 Vol % (12.0-20.0); BLOOD GAS PCO2 61 mmHg (38-42); BLOOD GAS PO2 85 mmHg (61-120); BLOOD GAS TOTAL HGB 10.5 G/DL (12.0-16.0); CRITICAL VALUE YES; LITER FLOW 15 L/M; TEMP CORR TO 98.6
[2016-12-22 08:49] LABS: DRAW SITE RT RADIAL; NUMBER OF ARTERIAL PUNCTURES 1; STAT YES; ULNAR PULSE PRESENT
[2016-12-22] MEDS ORDERED: FUROSEMIDE 40 MG/4 ML VIAL IV PUSH ONE (09:00)
[2016-12-22] MEDS: SODIUM CHLORIDE 0.9% FLUSH 5 ML FLUSH IVF SCH ×2 (09:00→21:00)
[2016-12-22] MEDS: LEVOFLOXACIN 500 MG TAB PO SCH (09:00)
[2016-12-22] MEDS: FAMOTIDINE 20 MG TAB PO SCH ×2 (09:00→21:47)
[2016-12-22] MEDS: LISINOPRIL 20 MG TAB PO SCH (09:00)
[2016-12-22] MEDS: POTASSIUM CHLORIDE 20 MEQ CONTROLLED RELEASE TAB PO SCH (09:00)
[2016-12-22] MEDS: GABAPENTIN 400 MG CAP PO SCH ×3 (09:00→18:02)
[2016-12-22] MEDS: LACTULOSE SYRUP 20 GM/30 ML CUP PO SCH (09:00)
[2016-12-22] MEDS: CALCIUM CARBONATE 500 MG CHEWABLE TAB CHEW SCH ×2 (09:00→21:47)
[2016-12-22] MEDS: METOPROLOL TARTRATE 50 MG TAB PO SCH ×2 (09:00→21:00)
[2016-12-22] MEDS: DOCUSATE SODIUM 50 MG/SENNA 8.6 MG TAB PO SCH ×2 (09:00→21:47)
[2016-12-22 09:17] LABS: AUTOMATED NEUTROPHIL # 6.1 TH/MM3 (1.8-7.7); BASOPHIL # 0.1 TH/MM3 (0-0.2); BASOPHIL % 0.7 % (0.0-2.0); EOSINOPHIL # 0.1 TH/MM3 (0-0.4); HEMATOCRIT 27.8 % (39.0-51.0); HEMO FLAGS DIFF FINAL; LYMPH % 9.8 % (9.0-44.0); LYMPHOCYTE # 0.7 TH/MM3 (1.0-4.8); MEAN CELL VOLUME 100.5 FL (80.0-100.0); MEAN CORPUSCULAR HEMOGLOBIN 33.7 PG (27.0-34.0); MEAN CORPUSCULAR HGB CONC 33.5 % (32.0-36.0); MONO % 7.9 % (0.0-8.0); NEUT % 80.6 % (16.0-70.0); PLATELET COUNT 300 TH/MM3 (150-450); RED BLOOD COUNT 2.77 MIL/MM3 (4.50-5.90); WHITE BLOOD COUNT 7.6 TH/MM3 (4.0-11.0)
--- NOTE | 2016-12-22 09:26 | RADRPT ---
EXAM DATE/TIME: 12/22/2016 09:01 [facility] COMPARISON: CHEST SINGLE AP, December 21, 2016, 12:21. INDICATIONS : Post intubaton, central line placement, and OG tube placement. MEDICAL HISTORY : None. SURGICAL HISTORY : Fusion, cervical. ENCOUNTER: Subsequent ACUITY: 1 month PAIN SCORE: Non-responsive. LOCATION: Bilateral chest FINDINGS: ET tube, nasogastric tube and central venous catheter are in good position. Patchy air space disease is present in both lung bases, improving in the interval. Worse consolidation persists in the left b ase. CONCLUSION: 1. Support apparatus in good position. 2. Improvement with minimal air space disease remaining in the left base. Ralph Garcias MD FACR on December 22, 2016 at 9:21 Board Certified Radiologist. This report was verified electronically.
[2016-12-22 09:45] LABS: BICARBONATE 29.9 MEQ/L (21.0-32.0); CALCIUM-PROTEIN CORRECTED 7.5 MG/DL (8.5-10.1); MAGNESIUM 1.3 MG/DL (1.5-2.5); POTASSIUM 3.8 MEQ/L (3.5-5.1); TOTAL BILIRUBIN ADULT 0.4 MG/DL (0.2-1.0)
[2016-12-22] MEDS ORDERED: RESP: ALBUTEROL 2.5 MG/3 ML NEB (PRN) INH (09:45)
[2016-12-22] MEDS ORDERED: MISCELLANEOUS NURSING INFORMATION XX SCH (09:45)
[2016-12-22] MEDS ORDERED: CHLORHEXIDINE GLUCONATE 2 % 1 PACK (2 CLOTHS) TOP PRN (09:45)
[2016-12-22 09:50] LABS: BLOOD GAS BASE EXCESS 0.7 mmol/L (-2-2); BLOOD GAS HCO3 26 mmol/L (22-26); BLOOD GAS METHEMOGLOBIN 0.6 % (0-2); BLOOD GAS O2 HGB SATURATION 98 % (90-100); BLOOD GAS OXYGEN CONTENT 20.6 Vol % (12.0-20.0); BLOOD GAS PCO2 52 mmHg (38-42); BLOOD GAS PO2 271 mmHg (61-120); BLOOD GAS TOTAL HGB 14.6 G/DL (12.0-16.0); TEMP CORR TO 98.6
[2016-12-22 09:51] LABS: CRITICAL VALUE YES; OXYGEN DEVICE VENTILATOR
[2016-12-22 09:52] LABS: DRAW SITE RT BRACHIAL; FIO2 70 %; NUMBER OF ARTERIAL PUNCTURES 1; STAT NO; ULNAR PULSE PRESENT; VENT SETTINGS AC/RR16/VT550/PEEP10
[2016-12-22] MEDS ORDERED: ROCURONIUM INJ 50 MG/5 ML VIAL IV ONE (10:00)
[2016-12-22] MEDS ORDERED: ETOMIDATE 20 MG/10 ML VIAL IVP ONE (10:00)
[2016-12-22] MEDS: ENOXAPARIN SODIUM 40 MG/0.4 ML SYRINGE SQ SCH (12:00)
[2016-12-22] MEDS: LEVOFLOXACIN 750 MG PREMIX INJ 150 ML IV SCH (13:34)
[2016-12-22] MEDS: MAGNESIUM SULFATE 1 GM PREMIX 100 ML IV SCH ×2 (13:34→14:05)
[2016-12-22] MEDS ORDERED: TERBUTALINE INJ 1 MG/ML AMP SQ PRN (14:00)
[2016-12-22] MEDS ORDERED: NOREPINEPHRINE-DEXTROSE DRIP 250 ML IV SCH (14:00)
[2016-12-22] MEDS ORDERED: SODIUM CHLOR 0.9% 1000 ML INJ 1,000 ML IV ONE (14:00)
[2016-12-22] MEDS: SODIUM CHLOR 0.9% 1000 ML INJ 1,000 ML IV SCH (14:06)
[2016-12-22] MEDS: LINEZOLID 600 MG PREMIX 300 ML IV SCH (14:06)
[2016-12-22] MEDS: metroNIDAZOLE 500 MG INJ 100 ML IV SCH ×2 (14:08→21:47)
[2016-12-22 14:21] LABS: POTASSIUM 4.1 MEQ/L (3.5-5.1)
--- NOTE | 2016-12-22 14:57 | PD.CONS ---
[facility] Service Critical Care Medicine Consult Requested By Primary Care Physician Unknown History of Present Illness is a 61 y/o CM who was admitted as a trauma alert after he fell off a ladder ~ 20 feet [place]. He sustained multiple left-sided rib fractures with hemopneumothorax. He underwent placement of Chest tube and eventually this was not draining much. Concern for empyema lead to a left side VATS and placement of new CTs x 2. He also was seen by ortho for multiple pelvic fractures including sacral fracture and nondisplaced acetabular fracture. Throughout his ICU stay patient had fevers on 1 day of 101 on 12/03/16 which lead to VATS. Patient was treated with IV antibiotics per ID following VATS. Patient chart revealed PCN as allergy unknown per chart but severe. Upon ID questioning his daughter she reported he has had hives in childhood but no recent Penicillin. ID informed her that he tolerated 2 doses of Zosyn IV which is a PCN group medication and he tolerated well. Procedures: CT pigtail with IR 12/05: LEFT VATS with thoracotomy; LEFT decortication and empyema removal. 12/09: DC chest tube #2 12/12: DC CT #1 Patient was subsequently transferred out of ICU. He has been on the floor and has been confused for the last 5-6 days with lethargy off and on. He has not been complying with physical therapy per trauma team. Patient was transferred to the hospitalist service by trauma team. He developed worsening respiratory distress overnight and this morning CODE BLUE was called. I responded to CODE BLUE activation. Patient was in extreme respiratory distress however was in sinus tachycardia and did have a good blood pressure. His O2 sats were in the low 90s on 100% nonrebreather but he was breathing in the 40s and had significant bilateral rhonchi/crackles. Dr. Clifford consulted critical care medicine service for acute respiratory failure. Patient was immediately transferred to the ICU and emergently intubated and placed on mechanical ventilation for impending respiratory arrest. Following intubation he did drop his blood pressure on initiating propofol hence a central line was placed emergently for possible need for pressors. 9 cultures and stat labs were ordered. Chest x-ray done postintubation revealed interstitial infiltrates with satisfactory position of central line. ET tube was withdrawn back 1 cm as it was at the nirmal. Patient subsequently spiked a fever. He received Lasix 40 mg IV initially however subsequently in view of temperature spike and borderline blood pressure was given 1 L normal saline bolus and started on normal saline at 100 cc an hour as his BNP was not very elevated and a 2-D echo done just a few days before showed normal LV function. Review of Systems ROS Limitations: Clinical Condition, Intubated, Altered Mental Status Past Family Social History Allergies: Coded Allergies: Penicillin (Verified Allergy, Unknown, Hives, 12/06/16) Pt reports hives but tolerated 2 doses of Zosyn IV on 12/05/16. Past Medical History HTN Past Surgical History Patient states he's had 5 spine surgeries and has metal hardware in place. VATS 11/2016 Reported Medications Current Medications Fentanyl Citrate (fentaNYL INJ) 100 mcg STK-MED ONCE .ROUTE ; Start 11/25/16 at 19:57; Stop 11/25/16 at 19:58; Status DC Etomidate (Amidate Inj) 20 mg STK-MED ONCE .ROUTE ; Start 11/25/16 at 20:19; Stop 11/25/16 at 20:20; Status DC Succinylcholine Chloride (Quelicin Inj) 200 mg STK-MED ONCE .ROUTE ; Start at 20:19; Stop 11/25/16 at 20:20; Status DC Fentanyl Citrate (fentaNYL INJ) 100 mcg STK-MED ONCE .ROUTE ; Start 11/25/16 at 20:21; Stop 11/25/16 at 20:22; Status DC Fentanyl Citrate (fentaNYL INJ) 100 mcg STK-MED ONCE .ROUTE ; Start 11/25/16 at 20:30; Stop 11/25/16 at 20:31; Status DC Iohexol 100 ml 100 ml STK-MED ONCE IV ; Start 11/25/16 at 20:32; Stop 11/25/16 at 20:33; Status DC Lactated Ringer's (Lr 1000 ml Inj) 1,000 ml @ 100 mls/hr Q10H IV Last administered on 11/25/16t 20:40; Start 11/25/16 at 20:40; Stop 11/26/16 at 15:12; Status DC IV Flush (NS Flush) 2 ml UNSCH PRN IVF FLUSH AFTER USING IV ACCESS Last administered on 12/05/16 05:12; Start 11/25/16 at 20:45; Stop 12/05/16 at 14:32 ; Status DC Hydromorphone HCl (Dilaudid Pf Inj) 1 mg Q1H PRN IVP BREAKTHROUGH PAIN Last administered on 11/26/16 15:12; Start 11/25/16 at 20:45; Stop 11/26/16 at 15:12; Status DC Enalaprilat (Vasotec Inj) 1.25 mg Q8H PRN IV SBP>180, DBP>95 Last administered on 12/01/16 11:28; Start 11/25/16 at 20:45; Stop 12/07/16 at 00:09; Status DC Ondansetron HCl (Zofran Inj) 4 mg Q6H PRN IV NAUSEA OR VOMITING Last administered on 11/28/16 15:59; Start 11/25/16 at 20:45 Enoxaparin Sodium 30 mg 30 mg Q12H SQ Last administered on 12/04/16 20:16; Start 11/25/16 at 22:00; Stop 12/05/16 at 12:14; Status DC Multivitamins/ Thiamine HCl/ Folic Acid/Sodium Chloride (Mvi-12 Inj/ Thiamine Inj/ Folvite Inj/NS 500 ml Inj) 511.2 ml @ 125 mls/hr Q24H IV Last administered on 11/27/16 21:16; Start 11/25/16 at 23:00; Stop 11/28/16 at 03:06; Status DC Docusate Sodium (Colace) 100 mg BID PO ; Start 11/25/16 at 21:00; Stop 11/27/16 at 07:38; Status DC Magnesium Hydroxide (Milk Of Magnesia Liq) 30 ml Q6H PRN PO CONSTIPATION; Start 11/25/16 at 20:45; Stop 11/27/16 at 21:00; Status DC Miscellaneous Information 1 [id number] Last administered on 11/25/16 20:45; Start 11/25/16 at 20:45; Stop 11/27/16 at 07:38; Status DC Chlorhexidine Gluconate (Chlorhexidine 2% Cloth) 3 pack Taper DAILY@04 TOP Last administered on 11/26/16 00:46; Start 11/26/16 at 04:00; Stop 11/27/16 at 07: 38; Status DC Chlorhexidine Gluconate (Chlorhexidine 2% Cloth) 3 pack UNSCH PRN TOP HYGIENIC CARE; Start 11/25/16 at 20:45; Stop 11/27/16 at 07:38; Status DC Acetaminophen/ Hydrocodone Bitart ([place] 10-325 Mg) 1 tab TID PRN PO PAIN 6-10 Last administered on 11/26/16 05:45; Start 11/25/16 at 22:45; Stop 11/26/16 at 15: 12; Status DC Methocarbamol (Robaxin) 750 mg TID PRN PO Last administered on 12/12/16 22:47 ; Start 11/25/16 at 22:45; Stop 12/14/16 at 15:26; Status DC Miscellaneous (Pill Splitter) 1 ea UNSCH PRN OTHER SEE LABEL COMMENTS; Start at 22:45 Famotidine (Pepcid) 20 mg HS PO Last administered on 12/04/16 20:14; Start 11/26/16 at 21:00; Stop 12/05/16 at 12:14; Status DC Nicotine (Habitrol 14 Mg Patch.24 Hr) 1 patch DAILY TD Last administered on 09:18; Start 11/26/16 at 10:00 Miscellaneous Information 1 HS TD Last administered on 12/21/16 09:19; Start 11/26/16 at 21:00 Acetaminophen (Ofirmev Inj) 1,000 mg Q8HR IV Last administered on 12/05/16 21: 01; Start 11/26/16 at 15:00; Stop 12/06/16 at 10:18; Status DC Hydromorphone HCl (Dilaudid Pf Inj) 1 mg Q3H PRN IVP BREAKTHROUGH PAIN Last administered on 12/02/16 20:33; Start 11/26/16 at 18:00; Stop 12/03/16 at 11:37; Status DC Oxycodone HCl (Roxicodone) 5 mg Q4H PRN PO pain 4-6 Last administered on 18:13; Start 11/26/16 at 16:00; Stop 12/05/16 at 12:14; Status DC Oxycodone HCl (Roxicodone) 10 mg Q4H PRN PO pain 7-10 Last administered on 12/04 23:41; Start 11/26/16 at 16:00; Stop 12/05/16 at 12:14; Status DC Magnesium Hydroxide (Milk Of Magnesia Liq) 30 ml HS PO Last administered on 19:45; Start 11/27/16 at 21:00; Stop 12/09/16 at 09:00; Status DC Lactulose (Lactulose Liq) 30 ml DAILY PO Last administered on 12/01/16 09:16; Start 11/27/16 at 09:00; Stop 12/02/16 at 08:14; Status DC Senna/Docusate Sodium (Roseanne-Colace) 2 tab BID PO Last administered on 12/01/16 21:31; Start 11/27/16 at 09:00; Stop 12/02/16 at 08:14; Status DC Albuterol/ Ipratropium (Duoneb Neb) 1 ampule Q6HR NEB NEB Last administered on 11/28/16 20:42; Start 11/27/16 at 12:15; Stop 11/30/16 at 13:45; Status DC Albuterol/ Ipratropium (Duoneb Neb) 1 ampule Q2HR NEB PRN NEB wheezing Last administered on 12/16/16 20:40; Start 11/27/16 at 12:15 Bisacodyl (Dulcolax Ec) 10 mg ONCE ONCE PO Last administered on 11/28/16 08:52 ; Start 11/28/16 at 08:15; Stop 11/28/16 at 08:17; Status DC Bisacodyl (Dulcolax Supp) 10 mg ONCE ONCE RECTAL ; Start 11/28/16 at 08:15; Stop 11/28/16 at 08:17; Status DC Iohexol (Omnipaque 350 Inj) 55 ml STK-MED ONCE IV Last administered on 13:51; Start 11/28/16 at 13:51; Stop 11/28/16 at 13:52; Status DC Ibuprofen (Motrin) 800 mg Q6HR PO Last administered on 12/03/16 05:12; Start 11/29/16 at 12:00; Stop 12/03/16 at 12:11; Status DC Gabapentin (Neurontin) 300 mg TID PO Last administered on 12/14/16 08:55; Start 11/29/16 at 13:00; Stop 12/14/16 at 12:38; Status DC Potassium Chloride (KCl) 20 meq ONCE ONCE PO Last administered on 11/30/16 12: 21; Start 11/30/16 at 07:30; Stop 11/30/16 at 07:55; Status DC Lidocaine/ Epinephrine (Xylocaine-Epi 1%-1:100,000 Inj) 20 ml STK-MED ONCE .ROUTE ; Start 11/30/16 at 08:58; Stop 11/30/16 at 08:59; Status DC Fentanyl Citrate (fentaNYL INJ) 250 mcg STK-MED ONCE .ROUTE Last administered on 11/30/16 09:54; Start 11/30/16 at 09:54; Stop 11/30/16 at 09:55; Status DC Midazolam HCl (Versed Inj) 5 mg STK-MED ONCE .ROUTE Last administered on 09:54; Start 11/30/16 at 09:54; Stop 11/30/16 at 09:55; Status DC Lorazepam (Ativan Inj) 1 mg NOW ONCE IV Last administered on 11/30/16 14:08; Start 11/30/16 at 14:00; Stop 11/30/16 at 14:01; Status DC Flumazenil (Romazicon Inj) 0.2 mg Q1M PRN IV PUSH SEE LABEL COMMENTS; Start 11/30/16 at 15:15 Lorazepam (Ativan) 1 mg Q4H PRN PO CIWA 8 - 10 Last administered on 12/01/16 09 :16; Start 11/30/16 at 15:15; Stop 12/05/16 at 12:14; Status DC Lorazepam (Ativan Inj) 1 mg Q4H PRN IV PUSH CIWA 8 - 10; Start 11/30/16 at 15:15 ; Stop 12/05/16 at 12:14; Status DC Lorazepam (Ativan) 2 mg Q2H PRN PO CIWA 11-14; Start 11/30/16 at 15:15; Stop 10/09 at 12:14; Status DC Lorazepam (Ativan Inj) 2 mg Q2H PRN IV PUSH CIWA 11-14; Start 11/30/16 at 15:15 ; Stop 12/05/16 at 12:14; Status DC Lorazepam (Ativan Inj) 2 mg Q1H PRN IV PUSH CIWA 15-20 Last administered on 12/01 11:28; Start 11/30/16 at 15:15; Stop 12/05/16 at 12:14; Status DC Lorazepam 2 mg 2 mg Q15M PRN IV PUSH CIWA > 20; Start 11/30/16 at 15:15; Stop at 12:14; Status DC Levofloxacin/ Dextrose (Levaquin 750 Mg Premix Inj) 150 ml @ 100 mls/hr Q24H IV Last administered on 12/02/16 15:58; Start 11/30/16 at 17:00; Stop 12/03/16 at 11:10; Status DC Albuterol/ Ipratropium 1 ampule 1 ampule Q6HR WHILE AWAKE NEB NEB Last administered on 12/04/16 11:41; Start 11/30/16 at 20:00; Stop 12/04/16 at 20:00 ; Status DC Sodium Chloride (NS 1000 ml Inj) 1,000 ml @ 100 mls/hr Q10H IV Last administered on 12/02/16 08:18; Start 11/30/16 at 17:00; Stop 12/02/16 at 08:53; Status DC Lisinopril 10 mg 10 mg DAILY PO Last administered on 12/09/16 09:33; Start 11/30/16 at 16:30; Stop 12/10/16 at 07:32; Status DC Thiamine HCl/ Sodium Chloride (Thiamine Inj/NS Inj) 101 ml @ 101 mls/hr ONCE ONCE IV Last administered on 11/30/16 18:02; Start 11/30/16 at 17:00; Stop at 17:59; Status DC Folic Acid (Folate) 1 mg ONCE ONCE PO Last administered on 11/30/16 17:14; Start 11/30/16 at 16:30; Stop 11/30/16 at 16:44; Status DC Clonidine (Catapres) 0.1 mg Q6H PRN PO SBP> OR = 180, DBP> OR = 100 Last administered on 12/17/16 22:06; Start 12/01/16 at 11:00 Furosemide (Lasix Inj) 40 mg ONCE ONCE IV PUSH Last administered on 12/01/16 16:03; Start 12/01/16 at 16:00; Stop 12/01/16 at 16:01; Status DC Senna/Docusate Sodium 1 tab 1 tab BID PO Last administered on 12/21/16 09:19; Start 12/02/16 at 09:00 Potassium Chloride 100 ml @ 50 mls/hr Q2H IV Last administered on 12/02/16 10: 06; Start 12/02/16 at 09:00; Stop 12/02/16 at 12:59; Status DC Potassium Chloride/Dextrose/ Sod Cl (D5-1/2 NS + KCl 20 Meq Inj) 1,000 ml @ 84 mls/hr [id number] IV Last administered on 12/02/16 09:48; Start 12/02/16 at 09:00; Stop 12/02/16 at 20:54; Status DC Morphine Sulfate (Oramorph Sr) 30 mg Q12HR PO Last administered on 12/04/16 20 :13; Start 12/03/16 at 21:00; Stop 12/05/16 at 12:14; Status DC Levofloxacin (Levaquin) 750 mg DAILY PO Last administered on 12/04/16 08:06; Start 12/04/16 at 09:00; Stop 12/05/16 at 13:59; Status DC Hydromorphone HCl (Dilaudid Pf Inj) 1 mg Q2H PRN IVP BREAKTHROUGH PAIN Last administered on 12/05/16 05:12; Start 12/03/16 at 13:00; Stop 12/05/16 at 12:14 ; Status DC Zolpidem Tartrate (Ambien) 5 mg HS PRN PO sleep Last administered on 12/05/16 21:18; Start 12/03/16 at 12:00; Stop 12/07/16 at 00:09; Status DC Iohexol 60 ml 60 ml STK-MED ONCE IV Last administered on 12/03/16 22:06; Start 12/03/16 at 22:06; Stop 12/03/16 at 22:07; Status DC Cefazolin Sodium/ Dextrose (Ancef 2 Gm Premix) 50 ml @ 100 mls/hr [employer]ERS IV ; Start 12/04/16 at 10:45; Stop 12/05/16 at 13:59; Status DC Lisinopril (Prinivil) 20 mg DAILY PO ; Start 12/05/16 at 09:00; Stop 12/05/16 at 12:14; Status DC Lisinopril 10 mg 10 mg ONCE ONCE PO Last administered on 12/04/16 14:37; Start 12/04/16 at 14:15; Stop 12/05/16 at 12:14; Status DC Lactated Ringer's (Lr 1000 ml Inj) 1,000 ml @ 30 mls/hr Q24H IV Last administered on 12/05/16 09:08; Start 12/05/16 at 09:30; Stop 12/05/16 at 12:14 ; Status DC Ketamine HCl (Ketalar Inj) 500 mg STK-MED ONCE .ROUTE ; Start 12/05/16 at 07:53 ; Stop 12/05/16 at 12:14; Status DC Bupivacaine HCl 30 ml 30 ml STK-MED ONCE .ROUTE Last administered on 12/05/16 10:25; Start 12/05/16 at 08:15; Stop 12/05/16 at 08:16; Status DC Sodium Chloride (NS 1000 ml Inj) 1,000 ml @ 0 mls/hr [employer] IV ; Start at 09:00; Stop 12/09/16 at 08:59; Status DC Povidone Iodine 1 applic ONCE ONCE TOPICAL ; Start 12/05/16 at 09:00; Stop 10/09 at 09:01; Status DC Talc/Sodium Chloride ONCE ONCE IPL ; Start 12/05/16 at 09:00; Stop 12/05/16 at 09:01; Status DC Talc/Sodium Chloride (Sterile Talc Powder 5 Gm/NS Inj) Q15M IPL ; Start at 09:00; Stop 12/05/16 at 09:16; Status DC Sugammadex Sodium (Bridion Inj) 200 mg STK-MED ONCE IV PUSH ; Start 12/05/16 at 10:32; Stop 12/05/16 at 10:33; Status DC Morphine Sulfate (*morphine INJ PERIprocedure ONLY) 8 mg STK-MED ONCE .ROUTE ; Start 12/05/16 at 11:41; Stop 12/05/16 at 12:14; Status DC Fentanyl Citrate (fentaNYL INJ) 500 mcg STK-MED ONCE .ROUTE ; Start 12/05/16 at 11:42; Stop 12/05/16 at 11:43; Status DC Morphine Sulfate (*morphine INJ PERIprocedure ONLY) 8 mg STK-MED ONCE .ROUTE Last administered on 12/05/16 11:52; Start 12/05/16 at 11:52; Stop 12/05/16 at 11:53; Status DC Morphine Sulfate (*morphine INJ PERIprocedure ONLY) 8 mg STK-MED ONCE .ROUTE Last administered on 12/05/16 12:02; Start 12/05/16 at 12:02; Stop 12/05/16 at 12:03; Status DC Meperidine HCl (*DEMEROL INJ PERIprocedural ONLY) 25 mg STK-MED ONCE .ROUTE ; Start 12/05/16 at 12:04; Stop 12/05/16 at 12:14; Status DC Oxybenzone/ Padimate O/ Dimethicone 4.25 applic 4.25 applic STK-MED ONCE .ROUTE ; Start 12/05/16 at 12:06; Stop 12/05/16 at 12:07; Status DC Sodium Chloride (NS 1000 ml Inj) 1,000 ml @ 100 mls/hr Q10H IV Last administered on 12/06/16 08:49; Start 12/05/16 at 12:03; Stop 12/06/16 at 09:14 ; Status DC IV Flush (NS Flush) 2 ml UNSCH PRN IVF FLUSH AFTER USING IV ACCESS Last administered on 12/20/16 05:24; Start 12/05/16 at 12:15 IV Flush (NS Flush) 2 ml BID IVF Last administered on 12/21/16 22:00; Start at 12:15 Pantoprazole Sodium (Protonix) 40 mg Q24H PO Last administered on 12/13/16 13: 05; Start 12/05/16 at 14:00; Stop 12/14/16 at 12:38; Status DC Docusate Sodium 100 mg 100 mg BID PO Last administered on 12/10/16 09:10; Start 12/05/16 at 21:00; Stop 12/10/16 at 12:46; Status DC Vancomycin HCl/ Sodium Chloride (Vancomycin Inj/ NS 250 ml Inj) 250 ml @ 250 mls/hr Q12H IV Last administered on 12/06/16 03:00; Start 12/05/16 at 15:00; Stop 12/06/16 at 03:59; Status DC Miscellaneous Information (Post-op Orders (for Pharmacy)) STAT ONCE XX ; Start 12/05/16 at 12:15; Stop 12/05/16 at 14:36; Status DC Oxycodone/ Acetaminophen (Percocet 5-325 Mg) 1 tab Q4H PRN PO breaktrough Last administered on 12/06/16 10:07; Start 12/05/16 at 12:15; Stop 12/06/16 at 11:40; Status DC Naloxone HCl (Narcan Inj) 0.4 mg UNSCH PRN IV SEE LABEL COMMENTS; Start at 12:15 Enoxaparin Sodium (Lovenox Inj) 40 mg Q24H SQ Last administered on 12/22/16 12: 00; Start 12/06/16 at 11:00 Naloxone HCl (Narcan Inj) 0.4 mg UNSCH PRN IV RESPIRATORY RATE LESS THAN 10; Start 12/05/16 at 12:15; Stop 12/06/16 at 09:17; Status DC Morphine Sulfate (Morphine 1 Mg/ ml MUSEUM GUIDE) 30 mg UNSCH IV Last administered on 03:47; Start 12/05/16 at 12:15; Stop 12/06/16 at 09:17; Status DC MUSEUM GUIDE Dosage Infused (Pha) 1 1 Q8HR .XX Last administered on 12/06/16 05:09; Start 12/05/16 at 14:00; Stop 12/06/16 at 09:17; Status DC Piperacillin Sod/ Tazobactam Sod 100 ml @ 200 mls/hr Q8H IV Last administered on 12/06/16 13:42; Start 12/05/16 at 15:00; Stop 12/06/16 at 16:00; Status DC Fluconazole/ Sodium Chloride (Diflucan 200 Mg Premix Bag) 100 ml @ 100 mls/hr Q24H IV Last administered on 12/06/16 13:46; Start 12/05/16 at 15:00; Stop at 16:06; Status DC Morphine Sulfate (Morphine Inj) 8 mg STK-MED ONCE IV PUSH Last administered on 12/05/16 11:41; Start 12/05/16 at 11:41; Stop 12/05/16 at 15:14; Status DC Meperidine HCl (Demerol Inj) 25 mg STK-MED ONCE IV Last administered on 12:04; Start 12/05/16 at 12:04; Stop 12/05/16 at 15:14; Status DC Acetaminophen (Tylenol) 1,000 mg Q8HR PO Last administered on 12/09/16 13:43; Start 12/06/16 at 14:00; Stop 12/10/16 at 12:46; Status DC Oxycodone/ Acetaminophen 1 tab 1 tab Q4H PRN PO BREAKTHROUGH PAIN Last administered on 12/19/16 09:13; Start 12/06/16 at 11:45; Stop 12/19/16 at 12:29 ; Status DC Pharmacy Profile Note 0 ml @ 0 mls/hr UNSCH OTHER ; Start 12/06/16 at 14:45; Stop 12/12/16 at 18:11; Status DC Vancomycin HCl 1500 mg/Sodium Chloride 515 ml @ 257.5 mls/ hr ONCE ONCE IV Last administered on 12/06/16 17:31; Start 12/06/16 at 16:00; Stop 12/06/16 at 17:59; Status DC Vancomycin HCl/ Sodium Chloride (Vancomycin Inj/ NS 250 ml Inj) 262.5 ml @ 250 mls/hr Q8H IV Last administered on 12/10/16 12:13; Start 12/07/16 at 00:00; Stop 12/10/16 at 12:56; Status DC Morphine Sulfate (Morphine Inj) 2 mg Q2H PRN IV PUSH PAIN GREATER THAN 5 Last administered on 12/06/16 16:00; Start 12/06/16 at 16:00; Stop 12/07/16 at 10:15 ; Status DC Levofloxacin (Levaquin) 500 mg DAILY PO Last administered on 12/21/16 09:17; Start 12/06/16 at 17:00; Stop 12/22/16 at 13:02; Status DC Melatonin (Melatonin) 5 mg HS PRN PO sleep Last administered on 12/19/16 22:40 ; Start 12/07/16 at 00:15 Olanzapine (ZyPREXA ZYDIS ODT) 5 mg HS PRN PO SEE LABEL COMMENTS Last administered on 12/07/16 01:17; Start 12/07/16 at 00:15 Lactulose (Lactulose Liq) 30 ml ONCE ONCE PO Last administered on 12/07/16 08 :34; Start 12/07/16 at 09:00; Stop 12/07/16 at 09:01; Status DC Morphine Sulfate (Morphine Inj) 4 mg Q2H PRN IV PUSH BREAKTHROUGH PAIN Last administered on 12/13/16 04:06; Start 12/07/16 at 11:00; Stop 12/13/16 at 08:16 ; Status DC Metronidazole (Flagyl) 500 mg Q8HR PO Last administered on 12/22/16 05:45; Start 12/07/16 at 14:00; Stop 12/22/16 at 13:02; Status DC Miscellaneous Information SPECIFIC LAB TO BE DRAWN:VANCOMYCIN TROUGH DATE TO... ONCE ONCE XX Last administered on 12/07/16 16:30; Start 12/07/16 at 15:45; Stop 12/07/16 at 15:46; Status DC Propofol (Diprivan 200 Mg/20 ml Inj) 200 mg STK-MED ONCE IV ; Start 12/05/16 at 12:34; Stop 12/07/16 at 12:35; Status DC Phenylephrine HCl (Neosynephrine/ NS 1000 Mcg/10ml Syr) 2,000 mcg STK-MED ONCE IV ; Start 12/05/16 at 12:34; Stop 12/07/16 at 12:35; Status DC Ondansetron HCl 4 mg 4 mg STK-MED ONCE IV PUSH ; Start 12/05/16 at 12:34; Stop 12/07/16 at 12:35; Status DC Lactated Ringer's 1,000 ml @ As Directed STK-MED ONCE IV ; Start 12/05/16 at 12 :34; Stop 12/07/16 at 12:35; Status DC Sodium Chloride 500 ml @ As Directed STK-MED ONCE IV ; Start 12/05/16 at 12:34 ; Stop 12/07/16 at 12:35; Status DC Parenteral Electrolytes (Normosol R Inj) 1,000 ml @ As Directed STK-MED ONCE IV ; Start 12/05/16 at 12:34; Stop 12/07/16 at 12:35; Status DC Miscellaneous Information SPECIFIC LAB TO BE DRAWN:VANCOMYCIN TROUGH DATE TO... ONCE ONCE XX Last administered on 12/09/16 10:15; Start 12/09/16 at 07:45; Stop 12/09/16 at 07:46; Status DC Pharmacy Profile Note (Vancomycin Consult Pharmacy) 0 ml @ 0 mls/hr UNSCH OTHER ; Start 12/08/16 at 11:00; Status Cancel Magnesium Hydroxide (Milk Of Magnesia Liq) 30 ml DAILY PRN PO CONSTIPATION; Start 12/09/16 at 09:00 Lactulose (Lactulose Liq) 30 ml DAILY PO Last administered on 12/21/16 09:16; Start 12/09/16 at 09:00 Lisinopril (Prinivil) 20 mg DAILY PO Last administered on 12/21/16 09:19; Start 12/10/16 at 09:00 Metoprolol Tartrate 50 mg 50 mg Q12HR PO Last administered on 12/21/16 09:17; Start 12/10/16 at 13:00 Vancomycin HCl/ Sodium Chloride (Vancomycin Inj/ NS 250 ml Inj) 262.5 ml @ 250 mls/hr Q8H IV Last administered on 12/12/16 12:57; Start 12/10/16 at 20:00; Stop 12/12/16 at 18:11; Status DC Morphine Sulfate (Morphine Inj) 1 mg Q6H PRN IV BREAKTHROUGH PAIN Last administered on 12/14/16 06:12; Start 12/13/16 at 12:00; Stop 12/14/16 at 12:38 ; Status DC Gabapentin (Neurontin) 400 mg TID PO Last administered on 12/22/16 12:36; Start 12/14/16 at 13:00 Famotidine (Pepcid) 20 mg BID PO Last administered on 12/21/16 22:00; Start at 21:00 Methocarbamol (Robaxin) 750 mg TID PO Last administered on 12/18/16 10:33; Start 12/14/16 at 18:00; Status Hold Amlodipine Besylate (Norvasc) 5 mg DAILY PO Last administered on 12/17/16 10: 07; Start 12/15/16 at 09:00; Stop 12/18/16 at 08:46; Status DC Bisacodyl (Dulcolax Ec) 10 mg ONCE ONCE PO ; Start 12/17/16 at 07:45; Stop at 07:46; Status DC Bisacodyl (Dulcolax Supp) 10 mg ONCE ONCE RECTAL ; Start 12/17/16 at 07:45; Stop 12/17/16 at 07:46; Status DC Lorazepam (Ativan Inj) 1 mg Q8H PRN IV PUSH aggitation Last administered on 03:29; Start 12/17/16 at 16:45; Stop 12/18/16 at 14:16; Status DC Furosemide 20 mg 20 mg DAILY IV PUSH Last administered on 12/21/16 09:22; Start 12/18/16 at 09:00 Sodium Chloride (NS 1000 ml Inj) 1,000 ml @ 42 mls/hr [id number] IV Last administered on 12/20/16 05:22; Start 12/18/16 at 00:30; Stop 12/20/16 at 14:52 ; Status DC Amlodipine Besylate (Norvasc) 7.5 mg DAILY PO ; Start 12/18/16 at 09:00; Stop at 11:42; Status DC Nifedipine (Procardia) 20 mg Q8HR PO Last administered on 12/21/16 13:02; Start 12/18/16 at 14:00 Albuterol/ Ipratropium (Duoneb Neb) 1 ampule Q6HR WHILE AWAKE NEB NEB Last administered on 12/22/16 07:48; Start 12/18/16 at 11:44; Stop 12/22/16 at 09:45; Status DC Hydralazine HCl (Apresoline Inj) 20 mg Q4H PRN IV PUSH BP > 180/90; Start 12/18 at 14:15 Albuterol/ Ipratropium (Duoneb Neb) 1 ampule ONCE ONCE NEB Last administered on 12/18/16 15:14; Start 12/18/16 at 14:30; Stop 12/18/16 at 14:31; Status DC Furosemide (Lasix Inj) 20 mg ONCE ONCE IV PUSH Last administered on 12/18/16 21:37; Start 12/18/16 at 20:00; Stop 12/18/16 at 20:01; Status DC Acetaminophen (Tylenol) 650 mg Q4H PRN PO pain/ fever > 101 Last administered on 12/22/16 13:00; Start 12/19/16 at 12:30 Ketorolac Tromethamine (Toradol Inj) 30 mg Q6H PRN IV PUSH PAIN UNRELIEVED BY TYLENOL Last administered on 12/21/16 17:33; Start 12/19/16 at 12:30; Stop 12/24 at 12:29 Potassium Chloride (KCl) 40 meq ONCE ONCE PO Last administered on 12/19/16 18 :04; Start 12/19/16 at 17:45; Stop 12/19/16 at 17:46; Status DC Potassium Chloride (KCl) 40 meq DAILY PO Last administered on 12/21/16 09:17; Start 12/20/16 at 09:00 Calcium Carbonate (Tums Chew) 500 mg Q12HR CHEW Last administered on 12/21/16 22:00; Start 12/20/16 at 09:00 Potassium Chloride 40 meq 40 meq ONCE ONCE PO Last administered on 12/20/16 10:07; Start 12/20/16 at 08:30; Stop 12/20/16 at 08:31; Status DC Calcium Gluconate/ Dextrose (Calcium Gluconate Inj/D5W 100 ml Inj) 120 ml @ 120 mls/hr ONCE ONCE IV Last administered on 12/21/16 11:10; Start 12/21/16 at 12:00; Stop 12/21/16 at 12:59; Status DC Potassium Chloride (KCl) 40 meq ONCE ONCE PO Last administered on 12/21/16 13 :03; Start 12/21/16 at 11:30; Stop 12/21/16 at 11:31; Status DC Furosemide 40 mg 40 mg ONCE ONCE IV PUSH Last administered on 12/21/16 23:02 ; Start 12/21/16 at 22:45; Stop 12/21/16 at 22:46; Status DC Magnesium Sulfate/ Dextrose (Magnesium Sulfate 1 Gm Premix) 100 ml @ 100 mls/ hr Q1H IV Last administered on 12/21/16 23:02; Start 12/21/16 at 22:45; Stop 12/22/16 at 00:44; Status DC Calcium Gluconate 2 gm 2 gm ONCE ONCE IV PUSH ; Start 12/22/16 at 00:45; Stop at 00:46; Status UNV Potassium Chloride 100 ml @ 50 mls/hr Q2H IV Last administered on 12/22/16 01: 00; Start 12/22/16 at 01:00; Stop 12/22/16 at 04:59; Status DC Calcium Gluconate 2 gm/Sodium Chloride 120 ml @ 60 mls/hr ONCE ONCE IV Last administered on 12/22/16 01:50; Start 12/22/16 at 01:00; Stop 12/22/16 at 02:59; Status DC Magnesium Sulfate/ Dextrose (Magnesium Sulfate 1 Gm Premix) 100 ml @ 100 mls/ hr Q1H IV ; Start 12/22/16 at 08:00; Stop 12/22/16 at 09:59; Status DC Furosemide (Lasix Inj) 40 mg STK-MED ONCE .ROUTE ; Start 12/22/16 at 08:45; Stop 12/22/16 at 08:46; Status DC Furosemide (Lasix Inj) 40 mg STAT ONCE IV PUSH Last administered on 12/22/16 09:57; Start 12/22/16 at 09:00; Stop 12/22/16 at 09:01; Status DC Morphine Sulfate (Morphine Inj) 4 mg Q2H PRN IV PAIN; Start 12/22/16 at 09:45 Albuterol/ Ipratropium (Duoneb Neb) 1 ampule Q6HR NEB NEB Last administered on 12/22/16 10:11; Start 12/22/16 at 10:00 Albuterol Sulfate (Albuterol Neb) 2.5 mg Q4HR NEB PRN INH SHORTNESS OF BREATH; Start 12/22/16 at 09:45 Chlorhexidine Gluconate (Peridex 0.12% Liq) 15 ml BID@08,20 MT ; Start 12/22/16 at 20:00 Miscellaneous Information 1 Q361D XX ; Start 12/22/16 at 09:45 Chlorhexidine Gluconate (Chlorhexidine 2% Cloth) 3 pack Taper DAILY@04 TOP ; Start 12/23/16 at 04:00; Stop 12/19/17 at 03:59 Chlorhexidine Gluconate (Chlorhexidine 2% Cloth) 3 pack UNSCH PRN TOP HYGIENIC CARE; Start 12/22/16 at 09:45 Etomidate (Amidate Inj) 20 mg ONCE ONCE IVP Last administered on 12/22/16 10: 25; Start 12/22/16 at 10:00; Stop 12/22/16 at 10:01; Status DC Rocuronium [place] 50 mg 50 mg ONCE ONCE IV Last administered on 12/22/16 10: 25; Start 12/22/16 at 10:00; Stop 12/22/16 at 10:01; Status DC Magnesium Sulfate/ Dextrose 100 ml @ 100 mls/hr Q1H IV Last administered on 14:05; Start 12/22/16 at 13:00; Stop 12/22/16 at 14:59; Status DC Levofloxacin/ Dextrose 150 ml @ 100 mls/hr Q24H IV Last administered on 13:34; Start 12/22/16 at 13:00 Metronidazole 100 ml @ 100 mls/hr Q8H IV Last administered on 12/22/16 14:08; Start 12/22/16 at 14:00 Linezolid 300 ml @ 300 mls/hr Q12H IV Last administered on 12/22/16 14:06; Start 12/22/16 at 14:00 Sodium Chloride 1,000 ml @ 1,000 mls/hr Q1H ONCE IV Last administered on 14:06; Start 12/22/16 at 14:00; Stop 12/22/16 at 14:59; Status DC Sodium Chloride 1,000 ml @ 100 mls/hr Q10H IV Last administered on 12/22/16 14 :06; Start 12/22/16 at 14:00 Norepinephrine Bitartrate (Levophed-Dextrose Drip) 250 ml @ 0 mls/hr TITRATE IV Last administered on 12/22/16 15:21; Start 12/22/16 at 14:00 Terbutaline Sulfate 1 mg 1 mg UNSCH PRN SQ For Extravasation; Start 12/22/16 at 14:00 Vasopressin 40 units/Dextrose 100 ml @ 4.5 mls/hr [id number] IV Last administered on 12/22/16t 15:07; Start 12/22/16 at 13:52 Propofol 100 ml @ As Directed STK-MED ONCE .ROUTE ; Start 12/22/16 at 15:19; Stop 12/22/16 at 15:20; Status DC Propofol (Diprivan 1000 Mg/100ml Inj) 100 ml @ 0 mls/hr TITRATE IV ; Start at 15:45 Family History unavailable at time of my evaluation Social History ETOH abuse Physical Exam Vital Signs Vital Signs Date Time Temp Pulse Resp B/P Pulse Ox O2 Delivery O2 Flow Rate FiO2 12/22/16 12:00 101.4 104 16 101/53 100 12/22/16 12:00 50 12/22/16 11:40 100 40 12/22/16 08:59 100 70 12/22/16 08:10 96 15.00 12/22/16 08:00 50 12/22/16 08:00 99.3 108 43 180/84 95 12/22/16 05:35 96.6 111 22 165/75 90 12/22/16 01:16 98.4 98 20 142/71 94 12/21/16 20:57 94 Nasal Cannula 5.00 12/21/16 20:45 97.4 98 18 120/73 98 12/21/16 19:30 Nasal Cannula 4.00 Humidified 12/21/16 15:45 95.7 89 20 128/64 96 Physical Exam HEENT/ Neuro: Sedated, orally intubated, Pallor present, no icterus, tongue/ mucosa dry Neck: No JVD Chest/Pulm: on mech vent, good air entry bilaterally, no wheezing or crackles. Johana over left thoracotomy site in place. CVS: S1-S2 regular, no murmur GI/abdomen: soft, nontender, bowel sounds sluggish Extremities: warm bilaterally, no edema Laboratory Laboratory Tests Test 12/21/16 12/22/16 12/22/16 12/22/16 23:15 08:03 09:00 09:37 White Blood Count 7.1 7.6 Red Blood Count 3.10 2.77 Hemoglobin 10.3 9.3 Hematocrit 30.8 27.8 Mean Corpuscular Volume 99.2 100.5 Mean Corpuscular Hemoglobin 33.4 33.7 Mean Corpuscular Hemoglobin 33.6 33.5 Concent Red Cell Distribution Width 14.7 15.0 Platelet Count 289 300 Mean Platelet Volume 7.3 7.5 Neutrophils (%) (Auto) 68.1 80.6 Lymphocytes (%) (Auto) 17.1 9.8 Monocytes (%) (Auto) 12.0 7.9 Eosinophils (%) (Auto) 1.7 1.0 Basophils (%) (Auto) 1.1 0.7 Neutrophils # (Auto) 4.9 6.1 Lymphocytes # (Auto) 1.2 0.7 Monocytes # (Auto) 0.9 0.6 Eosinophils # (Auto) 0.1 0.1 Basophils # (Auto) 0.1 0.1 CBC Comment DIFF FINAL DIFF FINAL Differential Comment Sodium Level 137 139 Potassium Level 3.7 3.8 Chloride Level 99 102 Carbon Dioxide Level 28.3 29.9 Anion Gap 10 7 Blood Urea Nitrogen 14 12 Creatinine 0.58 0.55 Estimat Glomerular Filtration 142 150 Rate Random Glucose 122 137 Calcium Level 6.8 6.8 Protein Corrected Calcium 7.2 7.5 Magnesium Level 0.9 1.3 B-Type Natriuretic Peptide 158 149 Total Protein 6.4 5.7 Blood Gas Puncture Site RT RADIAL RT BRACHIAL Blood Gas Patient Temperature 98.6 98.6 Blood Gas HCO3 28 26 Blood Gas Base Excess 2.0 0.7 Blood Gas Oxygen Saturation 92 98 Arterial Blood pH 7.29 7.32 Arterial Blood Partial 61 52 Pressure CO2 Arterial Blood Partial 85 271 Pressure O2 Arterial Blood Oxygen Content 13.7 20.6 Arterial Blood 2.2 2.0 Carboxyhemoglobin Arterial Blood Methemoglobin 0.7 0.6 Blood Gas Hemoglobin 10.5 14.6 Oxygen Delivery Device Non-Rebreathing VENTILATOR Mask Blood Gas Liter Flow 15 Nasal Screen MRSA (PCR) NEGATIVE Lactic Acid Level 0.9 Phosphorus Level 4.5 Total Bilirubin 0.4 Aspartate Amino Transf 115 (AST/SGOT) Alanine Aminotransferase 32 (ALT/SGPT) Alkaline Phosphatase 179 Ammonia 26 Lactate Dehydrogenase 189 Total Creatine Kinase 15 Troponin I 0.03 Albumin 1.7 Blood Gas Ventilator Setting AC/RR16/VT550/PEEP10 Blood Gas Inspired Oxygen 70 Test 12/22/16 13:25 Sodium Level 139 Potassium Level 4.1 Chloride Level 103 Carbon Dioxide Level 29.0 Anion Gap 7 Blood Urea Nitrogen 16 Creatinine 0.89 Estimat Glomerular Filtration 86 Rate Random Glucose 101 Calcium Level 7.0 Phosphorus Level 4.5 Albumin 1.7 Date/Time Procedure Status Source Growth 12/22/16 09:00 Gram Stain Received Sputum Endotracheal Pending 12/22/16 09:00 Sputum Culture Received Sputum Endotracheal Pending 12/22/16 09:00 Aerobic Blood Culture Received Blood Arterial Line Pending 12/22/16 09:00 Anaerobic Blood Culture Received Blood Arterial Line Pending 12/22/16 08:30 Urine Culture Received Urine Catheterized Urine Pending Result Diagram: 12/22/16 0900 12/22/16 1325 Imaging CXR 12/22 personally reviewed: ET tube just above nirmal, right supplement central line with tip overlying SVC, no pneumothorax, bilateral interstitial infiltrates worse on the right, NG tube in place thoracotomy johana noted. Left basilar opacity, possibly residual effusion following VATS previously. Last [address] 12/22/16 0000 Signed Impressions: Service Date/Time: Thursday, December 22, 2016 01:37 - CONCLUSION: 1. No acute intracranial abnormalities. No significant change from November 25. Zachery Aquino MD Chest X-Ray 12/21/16 0000 Signed Impressions: Service Date/Time: Wednesday, December 21, 2016 12:21 - CONCLUSION: Patchy infiltrates right greater than left improvement since 12/18/16. Flako Salguero MD Septic Shock Reassessment Heart: Regular rate and rhythm Lungs: Course Skin: Warm Peripheral Pulses: Bounding Right Radial Capillary Refill: Brisk Assessment and Plan Assessment and Plan 61-year-old male with: Trauma alert presented with with following initial injuries -Multiple LEFT rib fxs - LEFT HEMOPTX -LEFT lower lobe contusion -(spinal stenosis C6-C7) -(Disk protrusion C7-T1- spinal stenosis) -LEFT S2-S3 foramen fx (mild displaced) -BILAT superior and inferior pubic rami fx (non-op) -LEFT sacral Fx (non-op) -LEFT acetabulum fx (non-displaced) (non-op) Left-sided empyema status post VATS Acute respiratory failure on mechanical ventilation Encephalopathy Suspected aspiration Suspected sepsis Hypotension Plan: Neuro: Sedation with propofol while intubated. Daily sedation vacation. Head CT done last night was negative for intracranial hemorrhage. Ordered MRI brain however cannot be done due to patient having spinal fusion with metal per radiology. Follow up EEG, neuro consult requested. Ammonia level normal. Possible delirium secondary to sepsis. Continue gabapentin. Cardiovascular: Initially given Lasix 40 mg IV with not much response, however subsequently patient was febrile and hypotensive hence given 1 L normal saline bolus and initiated maintenance IV fluid following temperature spike in view of suspected sepsis. 2-D echo done on 12/20 revealed normal LV function. BNP not elevated significantly making fluid overload less likely. Levophed/low-dose vasopressin as needed for pressor support to maintain map greater than 65. Trend CVP. Hold all antihypertensives Pulmonary: Continue mechanical ventilation, vent bundle, bronchodilators. Follow up CT chest PE protocol to follow-up on empyema as well as evaluate for PE though higher suspicion for aspiration causing respiratory failure in view of altered mental status. GI/liver: Start tube feeds and advance to goal as tolerated. Renal/: IV hydration, strict intake output, monitor and replete electrolytes, follow BUN/creatinine. Guillaume catheterization. ID: Blood cultures 2, sputum Gram stain and cultures, UA and urine cultures were indicated. Empiric antibiotic coverage with Levaquin 750 g IV daily, Flagyl 500 mg IV every 8 hourly to be continued(switched from PO to IV on 12/22), started Zyvox 600 mg IV every 12 hourly while awaiting culture results. Initial lactic acid normal. Will reconsult ID (previously following patient for empyema). Check pro calcitonin level. Heme: Follow CBC Endocrine: Watch for hyperglycemia, SSI for glycemic control if needed. Prophylaxis: DVT prophylaxis with subcutaneous Lovenox/ SCDs GI prophylaxis with Pepcid via OGT. Access: Right subclavian central venous catheter (12/22) Discussed with [employer], discussed with family current clinical status and plan of care and they voiced understanding and were agreeable. Informed Dr. Storey from trauma team regarding patient's transfer back to ICU. Condition critical. Time spent on critical care excluding procedures 70 minutes Xu Boyd MD Dec 22, 2016 14:57
[2016-12-22] MEDS: VASOPRESSIN INJ 40 UNITS in DEXTROSE 5% IN WATER 100ML INJ 98 ML IV SCH ×2 (15:07)
[2016-12-22] MEDS ORDERED: PROPOFOL 1000 MG/100 ML INJ 100 ML ONE (15:19)
[2016-12-22] MEDS ORDERED: IOHEXOL 350 MG/ML 10 ML VIAL (for RAD DIAG) IV ONE (16:33)
--- NOTE | 2016-12-22 16:50 | MG ---
cc: AUSTIN CRUZ M.D. Lab No: Date: 12/22/2016 Age: Sex: M Race: EEG NUMBER [id number] TECHNIQUE 17 channel EEG. DESCRIPTION Background rhythm is moderate slowing in the theta frequency with occasional delta activity but mainly theta activity at 6 Hz. There are no lateralizing features. There are no epileptiform features identified. There are occasional sleep spindles as well. Photic results in a poor driving response. INTERPRETATION Mildly to moderately abnormal study consistent with a moderate encephalopathy. MD SAMEERA Foster/KK /4:39 PM /4:44 PM
--- NOTE | 2016-12-22 16:52 | PD.PROCEDR ---
Procedure Note Procedure Procedure: Endotracheal intubation Preop diagnosis: Acute respiratory failure with impending respiratory arrest Postop diagnosis: Same Indication: Impending respiratory arrest Sedation used: Etomidate 20 mg IV, rocuronium 50 mg IV Procedure: Patient was preoxygenated with 100% oxygen via Ambu bag with bag mask ventilation, following induction of sedation and neuromuscular blockade, direct laryngoscopy was performed using a Mac for blade with good visualization of vocal cords however ET tube could not be advanced through the vocal cords hence it was removed and patient was once again ventilated with bag mask ventilation and using glide scope for visualization of vocal cords, An 8 Frisian ET tube was passed through the vocal cords under visualization up to the 23 centimeter dragan and after inflating cuff of ET tube, correct placement was confirmed using bagging with good color change on CO2 detector, 5 point auscultation and chest rise with ventilation. Patient was connected to mechanical ventilation. Patient tolerated the procedure well with no immediate complications noted. Postprocedure chest x-ray was ordered. Xu Boyd MD Dec 22, 2016 16:52
--- NOTE | 2016-12-22 16:54 | PD.PROCEDR ---
Central Line Procedure REASON FOR PROCEDURE Central venous access PROCEDURE PERFORMED Central line placement: Right subclavian vein CONSENT Informed consent for procedure was not obtained as this was an emergent procedure for hypotension following intubation with poor peripheral IV access. ANESTHESIA Local injection of 1% Lidocaine DESCRIPTION OF THE PROCEDURE The patient was placed in supine, mild Trendelenburg position. The area was exposed and cleansed with ChloraPrep, times two. Large sterile drape was used to cover the patient, with the site exposed, under sterile conditions including cap, face mask, sterile gown, and sterile gloves. On single attempt, the introducer needle was inserted with negative pressure in syringe and venous flash was obtained. The guide wire was then advanced without any restriction and the needle was removed. The dilator was used without any complications. Using Seldinger technique a 20 cm antimicrobial coated triple lumen catheter was advanced over the guide wire to a depth of 16 centimeters. The guide wire was removed. All ports were aspirated with dark venous blood return and flushed easily with sterile saline. All ports were capped. Antibiotic disc was placed around central line at puncture site. The central line was secured to the skin with a stat lock, the area was bandaged with sterile see-through central line bandage. Postprocedure chest x-ray was ordered and reviewed with good placement of central line with tip overlying SVC, no pneumothorax on postprocedure film. COMPLICATIONS: No apparent complications ESTIMATED BLOOD LOSS: 3 cc. Xu Boyd MD Dec 22, 2016 16:54
--- NOTE | 2016-12-22 16:57 | RADRPT ---
EXAM DATE/TIME: 12/22/2016 16:20 [facility] COMPARISON: No previous studies available for comparison. INDICATIONS : Evaluate for PE, follow up empyema. IV CONTRAST: 75 cc Omnipaque 350 (iohexol) IV RADIATION DOSE: 15.58 CTDIvol (mGy) MEDICAL HISTORY : Multiple left rib fractures with hemopneumothorax. SURGICAL HISTORY : Spinal surgery. Chest tube placement and removal. ENCOUNTER: Subsequent ACUITY: 1 month PAIN SCALE: Non-responsive LOCATION: Left chest TECHNIQUE: Volumetric scanning of the chest was performed using a pulmonary embolism protocol MIP images were reconstructed. Using automated exposure control and adjustment of the mA and/or kV acco rding to patient size, radiation dose was kept as low as reasonably achievable to obtain optimal diag nostic quality images. FINDINGS: There are small bilateral pleural effusions larger on the left than the right with patc hy air-space disease in both lungs. There are no central pulmonary emboli identified. There is no per icardial effusion. There is no axillary adenopathy. There is nonspecific mediastinal adenopathy present. CONCLUSION: 1. There are no central pulmonary emboli identified. 2. Small bilateral pleural effusions that do not appear to be that complicated. 3. Patchy air-space disease in both lungs. Ralph Garcias MD FACR on December 22, 2016 at 16:47 Board Certified Radiologist. This report was verified electronically.
--- NOTE | 2016-12-22 17:03 | PD.CONS ---
History of Present Illness Service Neurology Consult Requested By medical Reason for Consult confusion Primary Care Physician Unknown History of Present Illness 61 y/o m who was admitted as a trauma alert after he fell off a ladder ~ 20 feet [place] adjusting lights on 12/03/2016. He sustained multiple left-sided rib fractures with hemopneumothorax. Due to persistent fevers and poor drainage from his chest tubes he underwent a left side VATS and placement of new CTs x 2. He also was seen by ortho for multiple pelvic fractures including sacral fracture and nondisplaced acetabular fracture. he has been noted to be confused and did undergo CIWA protocol. had ct brain today- no acute lesion. mri brain is pending. he was noted to be hypercapnic and acidotic by abg today. he has been intubated. Review of Systems [facility] limited 11/25 mental status, intubated on sedation Past Family Social History Allergies: Coded Allergies: Penicillin (Verified Allergy, Unknown, Hives, 12/06/16) Pt reports hives but tolerated 2 doses of Zosyn IV on 12/05/16. Past Medical History Hypertension Past Surgical History apparently has had 5 spine surgeries and has metal hardware in place. VATS 11/2016 Past Family Social History Allergies: Coded Allergies: Penicillin (Verified Allergy, Unknown, Hives, 12/06/16) Pt reports hives but tolerated 2 doses of Zosyn IV on 12/05/16. Review of Systems All other ROS: Unable to obtain Past Family Social History Allergies: Coded Allergies: Penicillin (Verified Allergy, Unknown, Hives, 12/06/16) Pt reports hives but tolerated 2 doses of Zosyn IV on 12/05/16. Active Ordered Medications Current Medications Medications (Trade) Dose Ordered Sig/Jason Route Start Time Stop Time Status Last Admin (Zofran Inj) 4 mg Q6H PRN IV 11/25/16 20:45 11/28/16 15:59 (Pill Splitter) 1 ea UNSCH PRN OTHER 11/25/16 22:45 (Habitrol 14 Mg Patch.24 Hr) 1 patch DAILY TD 11/26/16 10:00 12/21/16 09:18 Miscellaneous Information 1 HS TD 11/26/16 21:00 12/21/16 09:19 (Romazicon Inj) 0.2 mg Q1M PRN IV PUSH 11/30/16 15:15 (Catapres) 0.1 mg Q6H PRN PO 12/01/16 11:00 12/17/16 22:06 (Roseanne-Colace) 1 tab BID PO 12/02/16 09:00 12/21/16 09:19 (NS Flush) 2 ml UNSCH PRN IVF 12/05/16 12:15 12/20/16 05:24 (NS Flush) 2 ml BID IVF 12/05/16 12:15 12/21/16 22:00 (Narcan Inj) 0.4 mg UNSCH PRN IV 12/05/16 12:15 (Lovenox Inj) 40 mg Q24H SQ 12/06/16 11:00 12/22/16 12:00 (Melatonin) 5 mg HS PRN PO 12/07/16 00:15 12/19/16 22:40 (ZyPREXA ZYDIS ODT) 5 mg HS PRN PO 12/07/16 00:15 12/07/16 01:17 (Milk Of Magnesia Liq) 30 ml DAILY PRN PO 12/09/16 09:00 (Lactulose Liq) 30 ml DAILY PO 12/09/16 09:00 12/21/16 09:16 (Prinivil) 20 mg DAILY PO 12/10/16 09:00 12/21/16 09:19 (Lopressor) 50 mg Q12HR PO 12/10/16 13:00 12/21/16 09:17 (Neurontin) 400 mg TID PO 12/14/16 13:00 12/22/16 12:36 (Pepcid) 20 mg BID PO 12/14/16 21:00 12/21/16 22:00 (Robaxin) 750 mg TID PO 12/14/16 18:00 Hold 12/18/16 10:33 (Lasix Inj) 20 mg DAILY IV PUSH 12/18/16 09:00 12/21/16 09:22 (Procardia) 20 mg Q8HR PO 12/18/16 14:00 12/21/16 13:02 (Apresoline Inj) 20 mg Q4H PRN IV PUSH 12/18/16 14:15 (Tylenol) 650 mg Q4H PRN PO 12/19/16 12:30 12/22/16 13:00 (Toradol Inj) 30 mg Q6H PRN IV PUSH 12/19/16 12:30 12/24/16 12:29 12/21/16 17:33 (KCl) 40 meq DAILY PO 12/20/16 09:00 12/21/16 09:17 (Tums Chew) 500 mg Q12HR CHEW 12/20/16 09:00 12/21/16 22:00 (Morphine Inj) 4 mg Q2H PRN IV 12/22/16 09:45 (Peridex 0.12% Liq) 15 ml BID@08,20 MT 12/22/16 20:00 Miscellaneous Information 1 Q361D XX 12/22/16 09:45 (Chlorhexidine 2% Cloth) 3 pack Taper DAILY@04 TOP 12/23/16 04:00 12/19/17 03:59 Chlorhexidine Gluconate 3 pack 3 pack UNSCH PRN TOP 12/22/16 09:45 Levofloxacin/ Dextrose 150 ml @ 100 mls/hr Q24H IV 12/22/16 13:00 12/22/16 13:34 Metronidazole 100 ml @ 100 mls/hr Q8H IV 12/22/16 14:00 12/22/16 14:08 Linezolid 300 ml @ 300 mls/hr Q12H IV 12/22/16 14:00 12/22/16 14:06 Sodium Chloride 1,000 ml @ 100 mls/hr Q10H IV 12/22/16 14:00 12/22/16 14:06 (Levophed-Dextrose Drip) 250 ml @ 0 mls/hr TITRATE IV 12/22/16 14:00 12/22/16 15:21 Terbutaline Sulfate 1 mg 1 mg UNSCH PRN SQ 12/22/16 14:00 Vasopressin 40 units/Dextrose 100 ml @ 4.5 mls/hr [id number] IV 12/22/16 13:52 12/22/16 15:07 (Diprivan 1000 Mg/100ml Inj) 100 ml @ 0 mls/hr TITRATE IV 12/22/16 15:45 Exam I&O / VS 12/21/16 12/21/16 12/22/16 15:00 23:00 07:00 Intake Total 0 ml Output Total 1650 ml Balance 0 ml -1650 ml IV Total 0 ml Output Urine Total 1650 ml # Bowel Movements 3 Vital Signs Date Time Temp Pulse Resp B/P Pulse Ox O2 Delivery O2 Flow Rate FiO2 12/22/16 12:00 101.4 104 16 101/53 100 12/22/16 12:00 50 12/22/16 11:40 100 40 12/22/16 08:59 100 70 12/22/16 08:10 96 15.00 12/22/16 08:00 50 12/22/16 08:00 99.3 108 43 180/84 95 12/22/16 05:35 96.6 111 22 165/75 90 12/22/16 01:16 98.4 98 20 142/71 94 12/21/16 20:57 94 Nasal Cannula 5.00 12/21/16 20:45 97.4 98 18 120/73 98 12/21/16 19:30 Nasal Cannula 4.00 Humidified Exam Comments intubated on propofol gtt; opens eyes with tactile stimuli; appears to be able to follow some simple requests, eomi, mild facial jitteriness, ou 3mm sluggish, in restraints but has mild withdrawal in distal extremities Review/Management Diagnosis/Plan: (1) Metabolic encephalopathy Plan: likely related to hypercapnia vs SIRS/infection appears to have improved intubation r/o embolic infarcts 2/2 multiple fractures recs f/u mri brain eeg follow exam (2) Hypercapnic respiratory failure Plan: was receiving robaxin tid intubated (3) Multiple rib fractures (4) EtOH dependence Problem Qualifiers (1) Hypercapnic respiratory failure: Qualified Code: J96.02 - Acute respiratory failure with hypercapnia (2) Multiple rib fractures: Qualified Code: S22.42XA - Closed fracture of multiple ribs of left side, initial encounter (3) EtOH dependence: John Abbasi MD Dec 22, 2016 17:03
[2016-12-22] MEDS: PROPOFOL 1000 MG/100 ML IV SCH ×2 (17:11→22:00)
[2016-12-22] MEDS: KETOROLAC TROMETHAMINE 30 MG/ML (IVP) VIAL IV PUSH PRN (19:47)
[2016-12-22] MEDS: MORPHINE SULFATE 4 MG/ML INJ IV PRN ×2 (19:47→23:53)
[2016-12-22] MEDS: CHLORHEXIDINE 0.12% (ORAL KIT) 15 ML CUP MT SCH (20:00)
[2016-12-22] MEDS: REMOVE OLD NICODERM (NICOTINE) PATCH TD SCH (21:00)
[2016-12-23] VITALS (10 sets, daily range): BP systolic 122–152; BP diastolic 55–69; PULSE 66–108; RESP 16–26; TEMP 98.4–99; O2SAT 98–100
[2016-12-23] MEDS: SODIUM CHLOR 0.9% 1000 ML INJ 1,000 ML IV SCH ×2 (02:53→10:00)
[2016-12-23] MEDS: LINEZOLID 600 MG PREMIX 300 ML IV SCH ×2 (02:53→14:23)
[2016-12-23] MEDS: CHLORHEXIDINE GLUCONATE 2 % 1 PACK (2 CLOTHS) TOP SCH (04:00)
[2016-12-23] MEDS: RESP: ALBUTEROL 2.5 MG/IPRATROPIUM 0.5 MG NEB (SCH) NEB ×4 (04:14→20:50)
[2016-12-23] MEDS: metroNIDAZOLE 500 MG INJ 100 ML IV SCH ×3 (04:34→22:16)
[2016-12-23] MEDS: PROPOFOL 1000 MG/100 ML IV SCH (04:34)
[2016-12-23] MEDS: NIFEdipine 20 MG CAP PO SCH ×3 (04:35→22:00)
[2016-12-23 04:56] LABS: AUTOMATED NEUTROPHIL # 7.2 TH/MM3 (1.8-7.7); BASOPHIL # 0.1 TH/MM3 (0-0.2); BASOPHIL % 1.2 % (0.0-2.0); EOSINOPHIL # 0.3 TH/MM3 (0-0.4); EOSINOPHIL % 3.3 % (0.0-4.0); HEMO FLAGS DIFF FINAL; LYMPH % 13.2 % (9.0-44.0); LYMPHOCYTE # 1.3 TH/MM3 (1.0-4.8); MEAN CELL VOLUME 101.1 FL (80.0-100.0); MEAN CORPUSCULAR HGB CONC 33.6 % (32.0-36.0); MONO % 10.9 % (0.0-8.0); NEUT % 71.4 % (16.0-70.0); PLATELET COUNT 226 TH/MM3 (150-450); RED BLOOD COUNT 2.48 MIL/MM3 (4.50-5.90); RED CELL DISTRIBUTION WIDTH 15.1 % (11.6-17.2); WHITE BLOOD COUNT 10.1 TH/MM3 (4.0-11.0)
[2016-12-23 05:23] LABS: BICARBONATE 26.6 MEQ/L (21.0-32.0); POTASSIUM 3.6 MEQ/L (3.5-5.1)
[2016-12-23 05:33] LABS: CALCIUM-PROTEIN CORRECTED 7.9 MG/DL (8.5-10.1); TOTAL BILIRUBIN ADULT 0.4 MG/DL (0.2-1.0)
--- NOTE | 2016-12-23 07:25 | RADRPT ---
EXAM DATE/TIME: 12/22/2016 15:53 [facility] COMPARISON: CT BRAIN W/O CONTRAST, December 22, 2016, 1:37. INDICATIONS : Altered mental status. MEDICAL HISTORY : Hypertension. SURGICAL HISTORY : Fusion, cervical. ENCOUNTER: Subsequent ACUITY: 1 month PAIN SCORE: Nonresponsive. LOCATION: cranial TECHNIQUE: Multiplanar, multisequence MRI of the brain was performed without contrast. FINDINGS: CEREBRUM: The ventricles are normal for age. No evidence of midline shift, mass lesion, hemorrhage or acute in farction. No extraaxial fluid collections are seen. The pituitary gland and suprasellar cistern are normal in configuration. WHITE MATTER: No significant signal abnormalities are seen in the white matter. POSTERIOR FOSSA: The cerebellum and brainstem are intact. The 4th ventricle is midline. The cerebellopontine angle is unremarkable. The cerebellar tonsils are normal in position. DIFFUSION IMAGING: No focal areas of restricted diffusion are seen. No evidence of acute infarction. EXTRACRANIAL: The visualized portions of the orbits and paranasal sinuses are unremarkable. CONCLUSION: No acute disease. Drake Corona MD on December 23, 2016 at 7:19 Board Certified Radiologist. This report was verified electronically.
[2016-12-23] MEDS: LISINOPRIL 20 MG TAB PO SCH (08:39)
[2016-12-23] MEDS: METOPROLOL TARTRATE 50 MG TAB PO SCH ×2 (08:39→20:10)
[2016-12-23] MEDS: LACTULOSE SYRUP 20 GM/30 ML CUP PO SCH (08:40)
[2016-12-23] MEDS: GABAPENTIN 400 MG CAP PO SCH ×3 (08:55→17:32)
[2016-12-23] MEDS: FAMOTIDINE 20 MG TAB PO SCH ×2 (08:55→20:10)
[2016-12-23] MEDS: DOCUSATE SODIUM 50 MG/SENNA 8.6 MG TAB PO SCH ×2 (08:55→20:11)
[2016-12-23] MEDS: MORPHINE SULFATE 4 MG/ML INJ IV PRN ×4 (08:55→20:10)
[2016-12-23] MEDS: POTASSIUM CHLORIDE 20 MEQ CONTROLLED RELEASE TAB PO SCH (08:55)
[2016-12-23] MEDS: FUROSEMIDE 20 MG/2 ML VIAL IV PUSH SCH ×2 (08:56→09:00)
[2016-12-23] MEDS: NICOTINE 14 MG/24 HR PATCH TD SCH ×2 (09:00→10:57)
[2016-12-23] MEDS: CALCIUM CARBONATE 500 MG CHEWABLE TAB CHEW SCH ×2 (09:00→20:10)
[2016-12-23] MEDS: SODIUM CHLORIDE 0.9% FLUSH 5 ML FLUSH IVF SCH ×2 (09:00→20:10)
[2016-12-23] MEDS: VASOPRESSIN INJ 40 UNITS in DEXTROSE 5% IN WATER 100ML INJ 98 ML IV SCH ×2 (11:19)
[2016-12-23] MEDS: ENOXAPARIN SODIUM 40 MG/0.4 ML SYRINGE SQ SCH (11:19)
[2016-12-23] MEDS: CHLORHEXIDINE 0.12% (ORAL KIT) 15 ML CUP MT SCH ×2 (11:20→20:00)
[2016-12-23] MEDS: LEVOFLOXACIN 750 MG PREMIX INJ 150 ML IV SCH (12:43)
--- NOTE | 2016-12-23 12:48 | HHI.CCPN ---
Subjective Remarks/Hospital Course 12/22: is a 61 y/o CM who was admitted as a trauma alert after he fell off a ladder ~ [place]. He sustained multiple left-sided rib fractures with hemopneumothorax. He underwent placement of Chest tube and eventually this was not draining much. Concern for empyema lead to a left side VATS and placement of new CTs x 2. He also was seen by ortho for multiple pelvic fractures including sacral fracture and nondisplaced acetabular fracture. Throughout his ICU stay patient had fevers on 1 day of 101 on 12/03/16 which lead to VATS. Patient was treated with IV antibiotics per ID following VATS. Patient chart revealed PCN as allergy unknown per chart but severe. Upon ID questioning his daughter she reported he has had hives in childhood but no recent Penicillin. ID informed her that he tolerated 2 doses of Zosyn IV which is a PCN group medication and he tolerated well. Procedures: CT pigtail with IR 12/05: LEFT VATS with thoracotomy; LEFT decortication and empyema removal. 12/09: DC chest tube #2 12/12: DC CT #1 Patient was subsequently transferred out of ICU. He has been on the floor and has been confused for the last 5-6 days with lethargy off and on. He has not been complying with physical therapy per trauma team. Patient was transferred to the hospitalist service by trauma team. He developed worsening respiratory distress overnight and this morning CODE [facility]IGHA was called. I responded to CODE BLUE activation. Patient was in extreme respiratory distress however was in sinus tachycardia and did have a good blood pressure. His O2 sats were in the low 90s on 100% nonrebreather but he was breathing in the 40s and had significant bilateral rhonchi/crackles. Dr. Clifford consulted critical care medicine service for acute respiratory failure. Patient was immediately transferred to the ICU and emergently intubated and placed on mechanical ventilation for impending respiratory arrest. Following intubation he did drop his blood pressure on initiating propofol hence a central line was placed emergently for possible need for pressors. 9 cultures and stat labs were ordered. Chest x-ray done postintubation revealed interstitial infiltrates with satisfactory position of central line. ET tube was withdrawn back 1 cm as it was at the nirmal. Patient subsequently spiked a fever. He received Lasix 40 mg IV initially however subsequently in view of temperature spike and borderline blood pressure was given 1 L normal saline bolus and started on normal saline at 100 cc an hour as his BNP was not very elevated and a 2-D echo done just a few days before showed normal LV function. 12/23: Patient sedated, orally intubated on mechanical ventilation at the time of my evaluation this morning. Awakens easily and following commands. Objective Vital Signs Date Time Temp Pulse Resp B/P Pulse Ox O2 Delivery O2 Flow Rate FiO2 12/23/16 08:20 100 40 12/23/16 04:00 99.0 66 16 152/69 12/22/16 08:10 15.00 12/21/16 20:57 Nasal Cannula Intake and Output 12/22/16 12/22/16 12/23/16 08:00 16:00 00:00 Intake Total 83 ml 2484 ml Output Total 1650 ml 580 ml 350 ml Balance -1650 ml -497 ml 2134 ml Result Diagram: 12/23/16 0445 12/23/16 0445 Imaging CXR 12/22 personally reviewed: ET tube just above nirmal, right supplement central line with tip overlying SVC, no pneumothorax, bilateral interstitial infiltrates worse on the right, NG tube in place thoracotomy johana noted. Left basilar opacity, possibly residual effusion following VATS previously. MRI Brain 12/22: No evidence of acute ischemia or other acute abnormality. Last Impressions Head CT 12/22/16 0000 Signed Impressions: Service Date/Time: Thursday, December 22, 2016 01:37 - CONCLUSION: 1. No acute intracranial abnormalities. No significant change from November 25. Zachery Aquino MD Chest X-Ray 12/22/16 0000 Signed Impressions: Service Date/Time: Thursday, December 22, 2016 09:01 - CONCLUSION: 1. Support apparatus in good position. 2. Improvement with minimal air space disease remaining in the left base. Ralph Garcias MD FACR CT Angiography 12/22/16 0000 Signed Impressions: Service Date/Time: Thursday, December 22, 2016 16:20 - CONCLUSION: 1. There are no central pulmonary emboli identified. 2. Small bilateral pleural effusions that do not appear to be that complicated. 3. Patchy air-space disease in both lungs. Ralph Garcias MD FACR Brain MRI 12/22/16 0000 Signed Impressions: Service Date/Time: Thursday, December 22, 2016 15:53 - CONCLUSION: No acute disease. Drake Corona MD Shoulder X-Ray 12/13/16 1203 Signed Impressions: Service Date/Time: Tuesday, December 13, 2016 13:51 - CONCLUSION: Rib fractures with a small pleural effusion on the left. There is no evidence of shoulder fracture. Ralph Garcias MD FACR Chest CT 12/03/16 0000 Signed Impressions: Service Date/Time: Saturday, December 03, 2016 21:59 - CONCLUSION: 1. Left chest tube is present with the tip of the chest tube mostly above loculated air and fluid in the left pleural space. Cannot exclude a left-sided empyema. Patchy bronchopneumonia also suspected, right greater than left. Zachery Aquino MD Pelvis X-Ray 11/30/16 0000 Signed Impressions: Service Date/Time: Wednesday, November 30, 2016 10:32 - CONCLUSION: 1. Bilateral pubic rami fractures. 2. Apparent nondisplaced fracture through the left sacrum. Jovan Chu MD Chest Tube Insertion 11/30/16 0000 Signed Impressions: Service Date/Time: Wednesday, November 30, 2016 09:48 - CONCLUSION: Uncomplicated chest tube placement as above. Drake Corona MD Cervical Spine CT 11/25/161950 Signed Impressions: Service Date/Time: November 20:06 - CONCLUSION: 1. No fracture or subluxation of the cervical spine. 2. Degenerative changes with a chronic appearing disc osteophyte complex and uncovertebral/facet osteoarthritis causing severe spinal and bilateral foraminal stenosis at C6-C7. 3. Small, age-indeterminate posterior disc protrusion at C7/T1 causing mild spinal stenosis. Neel Moyer MD Abdomen/Pelvis CT 11/25/161950 Signed Impressions: Service Date/Time: November 20:10 - CONCLUSION: 1. No evidence of acute visceral or injury. 2. Fractures of the left body and ala of the sacrum with mildly displaced fracturing in the region of the left S2/S3 foramen. 3. Bilateral superior and inferior pubic rami fractures and a nondisplaced fracture of the left acetabulum. 4. Small presacral and left iliopsoas hematomas. I don't see active bleeding. Neel Moyer MD Thoracic Spine CT 11/25/16 0000 Signed Impressions: Service Date/Time: November 20:10 - CONCLUSION: Left T12 transverse process and facet fracture, minimally displaced. Multiple left posterior rib fractures and placed refer to the chest CT report. Thoracic vertebral bodies are intact. No subluxations. Neel Moyer MD Lumbar Spine CT 11/25/16 Signed Impressions: Service Date/Time: November 20:10 - CONCLUSION: 1. Minimally to mildly displaced left transverse process fractures of L1-L4. 2. Multilevel degenerative changes as above. Large right paracentral disc fragment at L4/L5, probably nonacute. Neel Moyer MD Objective Remarks HEENT/ Neuro: Sedated, easily arousable, following commands, orally intubated, Pallor present, no icterus, tongue/ mucosa moist Neck: No JVD Chest/Pulm: on mech vent, good air entry bilaterally, no wheezing or crackles. Johana over left thoracotomy site in place. CVS: S1-S2 regular, no murmur GI/abdomen: soft, nontender, bowel sounds sluggish Extremities: warm bilaterally, trace edema (left > right) A/P Assessment and Plan 61-year-old male with: Trauma alert presented with with following initial injuries -Multiple LEFT rib fxs - LEFT HEMOPTX -LEFT lower lobe contusion -(spinal stenosis C6-C7) -(Disk protrusion C7-T1- spinal stenosis) -LEFT S2-S3 foramen fx (mild displaced) -BILAT superior and inferior pubic rami fx (non-op) -LEFT sacral Fx (non-op) -LEFT acetabulum fx (non-displaced) (non-op) Left-sided empyema status post VATS Acute respiratory failure on mechanical ventilation Encephalopathy Suspected aspiration Fever Suspected sepsis Hypotension Plan: Neuro: Sedation with propofol while intubated. Daily sedation vacation. Head CT done last night was negative for intracranial hemorrhage. MRI brain negative for any ischemia or acute abnormality. EEG with no evidence of seizure activity, nonspecific encephalopathy. neuro consult noted. Ammonia level normal. Possible delirium secondary to sepsis. Continue gabapentin. Cardiovascular: Initially given Lasix 40 mg IV with not much response, however subsequently patient was febrile and hypotensive hence given 1 L normal saline bolus and initiated maintenance IV fluid following temperature spike in view of suspected sepsis. 2-D echo done on 12/20 revealed normal LV function. BNP not elevated significantly making fluid overload less likely. Levophed/low-dose vasopressin as needed for pressor support to maintain map greater than 65. Trend CVP. Hold all antihypertensives Pulmonary: Continue mechanical ventilation, vent bundle, bronchodilators. CT chest negative for PE, showed small bilateral pleural effusions and minimal airspace disease. Tolerate CPAP trial and extubated patient to nasal cannula GI/liver: Tube feeds held in view of anticipated extubation Renal/: IV hydration, strict intake output, monitor and replete electrolytes, follow BUN/creatinine. Guillaume catheterization. ID: Follow-up Blood cultures 2, sputum Gram stain and cultures and urine cultures were indicated. Empiric antibiotic coverage with Levaquin 750 g IV daily, Flagyl 500 mg IV every 8 hourly to be continued(switched from PO to IV on 12/22), started Zyvox 600 mg IV every 12 hourly while awaiting culture results. Initial lactic acid normal. Will reconsult ID if needed(previously following patient for empyema). Check pro calcitonin level. Check lower extremity venous Dopplers to evaluate for DVT which may possibly be source of fever. Heme: Follow CBC Endocrine: Watch for hyperglycemia, SSI for glycemic control if needed. Prophylaxis: DVT prophylaxis with subcutaneous Lovenox/ SCDs GI prophylaxis with Pepcid via OGT. Access: Right subclavian central venous catheter (12/22) Discussed with CLOSING COORDINATOR Xu Boyd MD Dec 23, 2016 12:48
--- NOTE | 2016-12-23 15:21 | RADRPT ---
EXAM DATE/TIME: 12/23/2016 14:28 [facility] COMPARISON: No previous studies available for comparison. INDICATIONS : Bilateral leg swelling. MEDICAL HISTORY : Joint pain. Herniated disk. SURGICAL HISTORY : Cervical spine surgery. ENCOUNTER: Initial ACUITY: 1 day PAIN SCORE: 2/10 LOCATION: Bilateral legs. TECHNIQUE: Venous ultrasound of the left and right leg was performed from the inguinal ligament to the proximal calf. Real-time, color Doppler and spectral tracing, compression and augmentation techniques were us ed. FINDINGS: RIGHT LEG: There is normal compressibility of the deep venous system from the inguinal region to the proximal ca lf. No echogenic clot is seen in the lumen of the common femoral, femoral, popliteal, and posterior tibial veins. There is a normal response of the venous system to proximal and distal augmentation an d respiration. LEFT LEG: There is normal compressibility of the deep venous system from the inguinal region to the proximal ca lf. No echogenic clot is seen in the lumen of the common femoral, femoral, popliteal, and posterior tibial veins. There is a normal response of the venous system to proximal and distal augmentation an d respiration. CONCLUSION: Normal examination. Flako Salguero MD on December 23, 2016 at 15:19 Board Certified Radiologist. This report was verified electronically.
[2016-12-23] MEDS: KETOROLAC TROMETHAMINE 30 MG/ML (IVP) VIAL IV PUSH PRN (18:01)
[2016-12-23] MEDS: REMOVE OLD NICODERM (NICOTINE) PATCH TD SCH (21:00)
[2016-12-23] MEDS ORDERED: EPINEPHrine HCL (1:10,000) 1 MG/10 ML SYRINGE ONE (21:31)
[2016-12-23] MEDS ORDERED: ATROPINE SULFATE 1 MG/10 ML SYRINGE ONE (21:31)
[2016-12-23] MEDS ORDERED: LIDOCAINE HCL 2% 100 MG/5 ML SYRINGE ONE (21:31)
--- NOTE | 2016-12-23 22:20 | RADRPT ---
EXAM DATE/TIME: 12/23/2016 21:38 [facility] COMPARISON: PELVIS AP/INLET/OUTLET (3VWS), November 30, 2016, 10:32. INDICATIONS : Evaluate pelvic fracture MEDICAL HISTORY : None. SURGICAL HISTORY : None. ENCOUNTER: Subsequent ACUITY: 1 month PAIN SCORE: 3/10 LOCATION: Pelvis FINDINGS: Pelvic fractures are again seen not significantly changed since the prior study from 11/30/2016. CONCLUSION: No appreciable change. Truman Hussein MD on December 23, 2016 at 22:17 Board Certified Radiologist. This report was verified electronically.
[2016-12-23] MEDS: oxyCODONE/ACETAMINOPHEN 7.5 MG/325 MG TAB PO PRN (22:45)
[2016-12-23] MEDS: MELATONIN 5 MG TAB PO PRN (22:59)
[2016-12-24] VITALS (8 sets, daily range): BP systolic 103–130; BP diastolic 48–62; PULSE 85–108; RESP 14–30; TEMP 97.1–98.6; O2SAT 95–100
--- NOTE | 2016-12-24 00:05 | EKG ---
Date Performed: 12/22/2016 Time Performed: 10:37:38 PTAGE: 61 years EKG: Sinus tachycardia. Normal ECG except for rate PREVIOUS TRACING : 12/05/2016 07.53 Compared to prior tracing no significant change DOCTOR: Yehuda Rodriguez Interpretating Date/Time 12/24/2016 00:05:02
[2016-12-24] MEDS: KETOROLAC TROMETHAMINE 30 MG/ML (IVP) VIAL IV PUSH PRN ×3 (00:58→11:44)
[2016-12-24] MEDS: LINEZOLID 600 MG PREMIX 300 ML IV SCH ×2 (00:58→14:02)
[2016-12-24] MEDS: CHLORHEXIDINE GLUCONATE 2 % 1 PACK (2 CLOTHS) TOP SCH ×2 (04:00→20:52)
[2016-12-24] MEDS: RESP: ALBUTEROL 2.5 MG/IPRATROPIUM 0.5 MG NEB (SCH) NEB ×4 (04:52→22:15)
[2016-12-24] MEDS: NIFEdipine 20 MG CAP PO SCH ×3 (06:00→20:52)
[2016-12-24] MEDS: SODIUM CHLOR 0.9% 1000 ML INJ 1,000 ML IV SCH ×3 (06:00→20:52)
[2016-12-24] MEDS: metroNIDAZOLE 500 MG INJ 100 ML IV SCH ×2 (06:20→14:02)
[2016-12-24] MEDS: oxyCODONE/ACETAMINOPHEN 7.5 MG/325 MG TAB PO PRN ×3 (06:20→20:46)
[2016-12-24] MEDS: CHLORHEXIDINE 0.12% (ORAL KIT) 15 ML CUP MT SCH ×2 (08:00→19:40)
--- NOTE | 2016-12-24 08:03 | HHI.PR ---
Review/Management Diagnosis/Plan: (1) Metabolic encephalopathy Plan: likely related to hypercapnia vs SIRS/infection appears to have improved intubation r/o embolic infarcts 2/2 multiple fractures mri-negative eeg-no sz recs neuro improved minimize etoh intake limit benzo's and muscle relaxants sign off Subjective Subjective Comments No acute events reported No headache No chest pain No dyspnea Active Medications Current Medications Medications (Trade) Dose Ordered Sig/Jason Route Start Time Stop Time Status Last Admin (Zofran Inj) 4 mg Q6H PRN IV 11/25/16 20:45 11/28/16 15:59 (Pill Splitter) 1 ea UNSCH PRN OTHER 11/25/16 22:45 (Habitrol 14 Mg Patch.24 Hr) 1 patch DAILY TD 11/26/16 10:00 12/23/16 09:00 Miscellaneous Information 1 HS TD 11/26/16 21:00 12/23/16 21:00 (Romazicon Inj) 0.2 mg Q1M PRN IV PUSH 11/30/16 15:15 (Catapres) 0.1 mg Q6H PRN PO 12/01/16 11:00 12/17/16 22:06 (Roseanne-Colace) 1 tab BID PO 12/02/16 09:00 12/23/16 08:55 (NS Flush) 2 ml UNSCH PRN IVF 12/05/16 12:15 12/20/16 05:24 (NS Flush) 2 ml BID IVF 12/05/16 12:15 12/23/16 20:10 (Narcan Inj) 0.4 mg UNSCH PRN IV 12/05/16 12:15 (Lovenox Inj) 40 mg Q24H SQ 12/06/16 11:00 12/23/16 11:19 (Melatonin) 5 mg HS PRN PO 12/07/16 00:15 12/23/16 22:59 (ZyPREXA ZYDIS ODT) 5 mg HS PRN PO 12/07/16 00:15 12/07/16 01:17 (Milk Of Magnesia Liq) 30 ml DAILY PRN PO 12/09/16 09:00 (Lactulose Liq) 30 ml DAILY PO 12/09/16 09:00 12/21/16 09:16 (Prinivil) 20 mg DAILY PO 12/10/16 09:00 12/21/16 09:19 (Lopressor) 50 mg Q12HR PO 12/10/16 13:00 12/23/16 20:10 (Neurontin) 400 mg TID PO 12/14/16 13:00 12/23/16 17:32 (Pepcid) 20 mg BID PO 12/14/16 21:00 12/23/16 20:10 (Robaxin) 750 mg TID PO 12/14/16 18:00 Hold 12/18/16 10:33 (Lasix Inj) 20 mg DAILY IV PUSH 12/18/16 09:00 12/23/16 09:00 (Procardia) 20 mg Q8HR PO 12/18/16 14:00 12/21/16 13:02 (Apresoline Inj) 20 mg Q4H PRN IV PUSH 12/18/16 14:15 (Tylenol) 650 mg Q4H PRN PO 12/19/16 12:30 12/22/16 13:00 (Toradol Inj) 30 mg Q6H PRN IV PUSH 12/19/16 12:30 12/24/16 12:29 12/24/16 06:20 (KCl) 40 meq DAILY PO 12/20/16 09:00 12/23/16 08:55 (Tums Chew) 500 mg Q12HR CHEW 12/20/16 09:00 12/23/16 20:10 (Morphine Inj) 4 mg Q2H PRN IV 12/22/16 09:45 12/23/16 20:10 (Peridex 0.12% Liq) 15 ml BID@08,20 MT 12/22/16 20:00 12/23/16 11:20 Miscellaneous Information 1 [id number] XX 12/22/16 09:45 (Chlorhexidine 2% Cloth) 3 pack Taper DAILY@04 TOP 12/23/16 04:00 12/19/17 03:59 12/23/16 04:00 Chlorhexidine Gluconate 3 pack 3 pack UNSCH PRN TOP 12/22/16 09:45 Levofloxacin/ Dextrose 150 ml @ 100 mls/hr Q24H IV 12/22/16 13:00 12/23/16 12:43 Metronidazole 100 ml @ 100 mls/hr Q8H IV 12/22/16 14:00 12/24/16 06:20 Linezolid 300 ml @ 300 mls/hr Q12H IV 12/22/16 14:00 12/24/16 00:58 Sodium Chloride 1,000 ml @ 100 mls/hr Q10H IV 12/22/16 14:00 12/23/16 10:00 (Levophed-Dextrose Drip) 250 ml @ 0 mls/hr TITRATE IV 12/22/16 14:00 12/22/16 15:21 Terbutaline Sulfate 1 mg 1 mg UNSCH PRN SQ 12/22/16 14:00 Vasopressin 40 units/Dextrose 100 ml @ 4.5 mls/hr [id number] IV 12/22/16 13:52 12/23/16 11:19 (Diprivan 1000 Mg/100ml Inj) 100 ml @ 0 mls/hr TITRATE IV 12/22/16 15:45 12/22/16 22:00 (Percocet 7.5-325 Mg) 1 tab Q4H PRN PO 12/23/16 22:00 12/24/16 06:20 Allergies Allergies Coded Allergies Penicillin (Verified Allergy, Unknown, Hives, 12/06/16) Review of Systems All other ROS: Unable to obtain Exam I&O / VS 12/23/16 12/23/16 12/24/16 15:00 23:00 07:00 Intake Total 958 ml 1189 ml 792 ml Output Total 750 ml 550 ml 300 ml Balance 208 ml 639 ml 492 ml Intake Oral 240 ml 120 ml IV Total 958 ml 949 ml 672 ml Output Urine Total 750 ml 550 ml 300 ml # Bowel Movements 0 0 Vital Signs Date Time Temp Pulse Resp B/P Pulse Ox O2 Delivery O2 Flow Rate FiO2 12/24/16 04:00 98.6 92 14 103/53 99 12/24/16 01:58 20 12/24/16 00:00 98.6 92 14 103/53 99 12/23/16 23:45 21 12/23/16 20:15 21 12/23/16 20:00 98.6 108 16 128/55 100 12/23/16 16:00 98.4 96 20 137/63 100 12/23/16 14:37 100 Nasal Cannula 3 12/23/16 12:00 98.7 89 26 122/60 98 12/23/16 08:20 100 40 Neurologic: Alert, Oriented, Normal motor, No focal defects, CN II-XII intact, Normal DTR's Psychiatric: Cooperative, Appropriate mood & affect, Normal judgement, Non- suicidal Objective Micro and Labs Date/Time Procedure Status Source Growth 12/22/16 15:13 Aerobic Blood Culture - Preliminary Resulted Blood Arterial Line NO GROWTH IN 1 DAY 12/22/16 15:13 Anaerobic Blood Culture - Final Resulted Blood Arterial Line QNS - SEE AEROBE REPORT 12/22/16 09:00 Gram Stain - Final Resulted Sputum Endotracheal 12/22/16 09:00 Sputum Culture - Preliminary Resulted Gram Negative [place] 12/22/16 08:30 Urine Culture - Preliminary Resulted Urine Catheterized Urine NO GROWTH IN 24 HOURS. John Abbasi MD Dec 24, 2016 08:03
[2016-12-24] MEDS: POTASSIUM CHLORIDE 20 MEQ CONTROLLED RELEASE TAB PO SCH (09:35)
[2016-12-24] MEDS: CALCIUM CARBONATE 500 MG CHEWABLE TAB CHEW SCH ×2 (09:35→20:47)
[2016-12-24] MEDS: LACTULOSE SYRUP 20 GM/30 ML CUP PO SCH (09:35)
[2016-12-24] MEDS: FUROSEMIDE 20 MG/2 ML VIAL IV PUSH SCH (09:35)
[2016-12-24] MEDS: METOPROLOL TARTRATE 50 MG TAB PO SCH ×2 (09:38→20:47)
[2016-12-24] MEDS: SODIUM CHLORIDE 0.9% FLUSH 5 ML FLUSH IVF SCH ×2 (09:38→20:48)
[2016-12-24] MEDS: DOCUSATE SODIUM 50 MG/SENNA 8.6 MG TAB PO SCH ×2 (09:39→20:48)
[2016-12-24] MEDS: GABAPENTIN 400 MG CAP PO SCH ×3 (09:39→17:21)
[2016-12-24] MEDS: LISINOPRIL 20 MG TAB PO SCH (09:39)
[2016-12-24] MEDS: FAMOTIDINE 20 MG TAB PO SCH ×2 (09:39→20:47)
[2016-12-24] MEDS: NICOTINE 14 MG/24 HR PATCH TD SCH (09:40)
[2016-12-24] MEDS: ENOXAPARIN SODIUM 40 MG/0.4 ML SYRINGE SQ SCH (09:41)
[2016-12-24] MEDS: VASOPRESSIN INJ 40 UNITS in DEXTROSE 5% IN WATER 100ML INJ 98 ML IV SCH ×2 (09:41)
--- NOTE | 2016-12-24 11:07 | HHI.CCPN ---
Subjective Remarks/Hospital Course 12/22: is a 61 y/o CM who was admitted as a trauma alert after he fell off a ladder ~ [place]. He sustained multiple left-sided rib fractures with hemopneumothorax. He underwent placement of Chest tube and eventually this was not draining much. Concern for empyema lead to a left side VATS and placement of new CTs x 2. He also was seen by ortho for multiple pelvic fractures including sacral fracture and nondisplaced acetabular fracture. Throughout his ICU stay patient had fevers on 1 day of 101 on 12/03/16 which lead to VATS. Patient was treated with IV antibiotics per ID following VATS. Patient chart revealed PCN as allergy unknown per chart but severe. Upon ID questioning his daughter she reported he has had hives in childhood but no recent Penicillin. ID informed her that he tolerated 2 doses of Zosyn IV which is a PCN group medication and he tolerated well. Procedures: CT pigtail with IR 12/05: LEFT VATS with thoracotomy; LEFT decortication and empyema removal. 12/09: DC chest tube #2 12/12: DC CT #1 Patient was subsequently transferred out of ICU. He has been on the floor and has been confused for the last 5-6 days with lethargy off and on. He has not been complying with physical therapy per trauma team. Patient was transferred to the hospitalist service by trauma team. He developed worsening respiratory distress overnight and this morning CODE LEIGHA was called. I responded to CODE BLUE activation. Patient was in extreme respiratory distress however was in sinus tachycardia and did have a good blood pressure. His O2 sats were in the low 90s on 100% nonrebreather but he was breathing in the 40s and had significant bilateral rhonchi/crackles. Dr. Clifford consulted critical care medicine service for acute respiratory failure. Patient was immediately transferred to the ICU and emergently intubated and placed on mechanical ventilation for impending respiratory arrest. Following intubation he did drop his blood pressure on initiating propofol hence a central line was placed emergently for possible need for pressors. 9 cultures and stat labs were ordered. Chest x-ray done postintubation revealed interstitial infiltrates with satisfactory position of central line. ET tube was withdrawn back 1 cm as it was at the nirmal. Patient subsequently spiked a fever. He received Lasix 40 mg IV initially however subsequently in view of temperature spike and borderline blood pressure was given 1 L normal saline bolus and started on normal saline at 100 cc an hour as his BNP was not very elevated and a 2-D echo done just a few days before showed normal LV function. 12/23: Patient sedated, orally intubated on mechanical ventilation at the time of my evaluation this morning. Awakens easily and following commands. 12/24: Patient extubated yesterday and has been tolerating nasal cannula. He is awake and alert following commands following extubation. Does not appear to be in any acute distress and appears to be in a good mood today. Has been tolerating a by mouth diet. Pro-calcitonin level came back low however sputum grew out Escherichia coli resistant to Levaquin and one blood culture with gram- positive cocci. ID consulted for antibiotic management. Patient to be transferred out of ICU to hospitalist service. MRI brain and EEG unremarkable. Neurology signed off. Objective Vital Signs Date Time Temp Pulse Resp B/P Pulse Ox O2 Delivery O2 Flow Rate FiO2 12/24/16 09:36 100 Nasal Cannula 3.00 12/24/16 08:00 98.5 99 18 119/62 12/23/16 08:20 40 Intake and Output 12/23/16 12/23/16 12/24/16 08:00 16:00 00:00 Intake Total 1513 ml 958 ml 1189 ml Output Total 300 ml 750 ml 550 ml Balance 1213 ml 208 ml 639 ml Result Diagram: 12/23/16 0445 12/23/16 0445 Other Results Microbiology Date/Time Procedure Status Source Growth 12/22/16 08:30 Urine Culture - Final Complete Urine Catheterized Urine NO GROWTH IN 48 HOURS. 12/22/16 09:00 Gram Stain - Final Complete Sputum Endotracheal 12/22/16 09:00 Sputum Culture - Final Complete Escherichia Coli Imaging CXR 12/22 personally reviewed: ET tube just above nirmal, right supplement central line with tip overlying SVC, no pneumothorax, bilateral interstitial infiltrates worse on the right, NG tube in place thoracotomy johana noted. Left basilar opacity, possibly residual effusion following VATS previously. MRI Brain 12/22: No evidence of acute ischemia or other acute abnormality. Last Impressions Head CT 12/22/16 0000 Signed Impressions: Service Date/Time: Thursday, December 22, 2016 01:37 - CONCLUSION: 1. No acute intracranial abnormalities. No significant change from November 25. Zachery Aquino MD Chest X-Ray 12/22/16 0000 Signed Impressions: Service Date/Time: Thursday, December 22, 2016 09:01 - CONCLUSION: 1. Support apparatus in good position. 2. Improvement with minimal air space disease remaining in the left base. Ralph Garcias MD FACR CT Angiography 12/22/16 0000 Signed Impressions: Service Date/Time: Thursday, December 22, 2016 16:20 - CONCLUSION: 1. There are no central pulmonary emboli identified. 2. Small bilateral pleural effusions that do not appear to be that complicated. 3. Patchy air-space disease in both lungs. Ralph Garcias MD FACR Brain MRI 12/22/16 0000 Signed Impressions: Service Date/Time: Thursday, December 22, 2016 15:53 - CONCLUSION: No acute disease. Drake Corona MD Shoulder X-Ray 12/13/16 1203 Signed Impressions: Service Date/Time: Tuesday, December 13, 2016 13:51 - CONCLUSION: Rib fractures with a small pleural effusion on the left. There is no evidence of shoulder fracture. Ralph Garcias MD FACR Chest CT 12/03/16 0000 Signed Impressions: Service Date/Time: Saturday, December 03, 2016 21:59 - CONCLUSION: 1. Left chest tube is present with the tip of the chest tube mostly above loculated air and fluid in the left pleural space. Cannot exclude a left-sided empyema. Patchy bronchopneumonia also suspected, right greater than left. Zachery Aquino MD Pelvis X-Ray 11/30/16 0000 Signed Impressions: Service Date/Time: Wednesday, November 30, 2016 10:32 - CONCLUSION: 1. Bilateral pubic rami fractures. 2. Apparent nondisplaced fracture through the left sacrum. Jovan Chu MD Chest Tube Insertion 11/30/16 0000 Signed Impressions: Service Date/Time: Wednesday, November 30, 2016 09:48 - CONCLUSION: Uncomplicated chest tube placement as above. Drake Corona MD Cervical Spine CT 11/25/161950 Signed Impressions: Service Date/Time: November 20:06 - CONCLUSION: 1. No fracture or subluxation of the cervical spine. 2. Degenerative changes with a chronic appearing disc osteophyte complex and uncovertebral/facet osteoarthritis causing severe spinal and bilateral foraminal stenosis at C6-C7. 3. Small, age-indeterminate posterior disc protrusion at C7/T1 causing mild spinal stenosis. Neel Moyer MD Abdomen/Pelvis CT 11/25/16 195 Signed Impressions: Service Date/Time: November 20:10 - CONCLUSION: 1. No evidence of acute visceral or injury. 2. Fractures of the left body and ala of the sacrum with mildly displaced fracturing in the region of the left S2/S3 foramen. 3. Bilateral superior and inferior pubic rami fractures and a nondisplaced fracture of the left acetabulum. 4. Small presacral and left iliopsoas hematomas. I don't see active bleeding. Neel Moyer MD Thoracic Spine CT 11/25/16 0000 Signed Impressions: Service Date/Time: November 20:10 - CONCLUSION: Left T12 transverse process and facet fracture, minimally displaced. Multiple left posterior rib fractures and placed refer to the chest CT report. Thoracic vertebral bodies are intact. No subluxations. Neel Moyer MD Lumbar Spine CT 11/25/16 0000 Signed Impressions: Service Date/Time: November 20:10 - CONCLUSION: 1. Minimally to mildly displaced left transverse process fractures of L1-L4. 2. Multilevel degenerative changes as above. Large right paracentral disc fragment at L4/L5, probably nonacute. Neel Moyer MD Objective Remarks HEENT/ Neuro: Awake alert oriented 3, moving all 4 extremity is, grossly nonfocal, Pallor present, no icterus, tongue/ mucosa moist Neck: No JVD Chest/Pulm: on mech vent, good air entry bilaterally, no wheezing or crackles. Johana over left thoracotomy site in place. CVS: S1-S2 regular, no murmur GI/abdomen: soft, nontender, bowel sounds sluggish Extremities: warm bilaterally, trace edema (left > right) A/P Assessment and Plan 61-year-old male with: Trauma alert presented with with following initial injuries -Multiple LEFT rib fxs - LEFT HEMOPTX -LEFT lower lobe contusion -(spinal stenosis C6-C7) -(Disk protrusion C7-T1- spinal stenosis) -LEFT S2-S3 foramen fx (mild displaced) -BILAT superior and inferior pubic rami fx (non-op) -LEFT sacral Fx (non-op) -LEFT acetabulum fx (non-displaced) (non-op) Left-sided empyema status post VATS Acute respiratory failure on mechanical ventilation Encephalopathy Suspected aspiration Fever Suspected sepsis Hypotension Plan: Neuro: Head CT was negative for intracranial hemorrhage. MRI brain negative for any ischemia or acute abnormality. EEG with no evidence of seizure activity , nonspecific encephalopathy. neuro consult noted. Ammonia level normal. Possible delirium secondary to sepsis. Continue gabapentin. Cardiovascular: Initially given Lasix 40 mg IV with not much response, however subsequently patient was febrile and hypotensive hence given 1 L normal saline bolus and initiated maintenance IV fluid following temperature spike in view of suspected sepsis. 2-D echo done on 12/20 revealed normal LV function. BNP not elevated significantly making fluid overload less likely. Off Levophed and vasopressin drips since 12/23 following extubation.Holding antihypertensives Pulmonary: Extubated on 12/23, tolerating nasal cannula. Continue bronchodilators. CT chest negative for PE, showed small bilateral pleural effusions and minimal airspace disease. GI/liver: Advance by mouth diet as tolerated Renal/: Saline lock IV fluids in view of lower extremity edema, strict intake output, monitor and replete electrolytes, follow BUN/creatinine. Guillaume catheterization. ID: Follow-up Blood cultures 2, sputum Gram stain and cultures and urine cultures. Empiric antibiotic coverage with Levaquin 750 g IV daily, Flagyl 500 mg IV every 8 hourly to be continued(switched from PO to IV on 12/22), started Zyvox 600 mg IV every 12 hourly while awaiting culture results. Initial lactic acid normal. Pro calcitonin level not elevated however sputum culture with resistant Escherichia coli and one blood culture with gram-positive cocci noted. ID consult requested for further evaluation and antibiotic management. Lower extremity venous Dopplers negative for for DVT. Heme: Follow CBC Endocrine: Watch for hyperglycemia, SSI for glycemic control if needed. Prophylaxis: DVT prophylaxis with subcutaneous Lovenox/ SCDs GI prophylaxis with Pepcid via OGT. Access: Right subclavian central venous catheter (12/22) Discussed with [employer] Patient to be transferred out of ICU to hospitalist service for further medical management. Critical care will be signing off at this time. Please reconsult if needed. Xu Boyd MD Dec 24, 2016 11:07
--- NOTE | 2016-12-24 13:11 | PD.ID.CON ---
History of Present Illness Consult Requested By Primary Care Physician Unknown Diagnoses: Past Family Social History Allergies: Coded Allergies: Penicillin (Verified Allergy, Unknown, Hives, 12/06/16) Pt reports hives but tolerated 2 doses of Zosyn IV on 12/05/16. Physical Exam Vital Signs Vital Signs Date Time Temp Pulse Resp B/P Pulse Ox O2 Delivery O2 Flow Rate FiO2 12/24/16 12:00 98.1 108 30 130/59 99 12/24/16 09:36 100 Nasal Cannula 3.00 12/24/16 08:00 98.5 99 18 119/62 98 12/24/16 04:00 98.6 92 14 103/53 99 12/24/16 01:58 20 12/24/16 00:00 98.6 92 14 103/53 99 12/23/16 23:45 21 12/23/16 20:15 21 12/23/16 20:00 98.6 108 16 128/55 100 12/23/16 16:00 98.4 96 20 137/63 100 12/23/16 14:37 100 Nasal Cannula 3 12/23/16 14:37 100 Nasal Cannula 3.00 Physical Exam GENERAL: This is a well-nourished, well-developed patient, in no apparent distress. SKIN: No rashes, ecchymoses or lesions. Cool and dry. HEAD: Atraumatic. Normocephalic. No temporal or scalp tenderness. EYES: Pupils equal round and reactive. Extraocular motions intact. No scleral icterus. No injection or drainage. ENT: Nose without bleeding, purulent drainage or septal hematoma. Throat without erythema, tonsillar hypertrophy or exudate. Uvula midline. Airway patent. NECK: Trachea midline. No JVD or lymphadenopathy. Supple, nontender, no meningeal signs. CARDIOVASCULAR: Regular rate and rhythm without murmurs, gallops, or rubs. RESPIRATORY: Clear to auscultation. Breath sounds equal bilaterally. No wheezes , rales, or rhonchi. GASTROINTESTINAL: Abdomen soft, non-tender, nondistended. No hepato-splenomegaly , or palpable masses. No guarding. MUSCULOSKELETAL: Extremities without clubbing, cyanosis, or edema. No joint tenderness, effusion, or edema noted. No calf tenderness. Negative Homans sign bilaterally. NEUROLOGICAL: Awake and alert. Cranial nerves II through XII intact. Motor and sensory grossly within normal limits. Five out of 5 muscle strength in all muscle groups. Normal speech. Laboratory Date/Time Procedure Status Source Growth 12/22/16 15:13 Aerobic Blood Culture - Preliminary Resulted Blood Arterial Line NO GROWTH IN 2 DAYS 12/22/16 15:13 Anaerobic Blood Culture - Final Resulted Blood Arterial Line QNS - SEE AEROBE REPORT 12/22/16 09:00 Gram Stain - Final Complete Sputum Endotracheal 12/22/16 09:00 Sputum Culture - Final Complete Escherichia Coli 12/22/16 08:30 Urine Culture - Final Complete Urine Catheterized Urine NO GROWTH IN 48 HOURS. Result Diagram: 12/23/165 12/23/165 Jenelle Boyd MD Dec 24, 2016 13:11 12/22/16 09:00 Gram Stain - Final Complete Sputum Endotracheal 12/22/16 09:00 Sputum Culture - Final Complete Escherichia Coli 12/22/16 08:30 Urine Culture - Final Complete Urine Catheterized Urine NO GROWTH IN 48 HOURS. Result Diagram: 12/23/165 12/23/16 044 Assessment and Plan Assessment and Plan Hemothorax with organized hematoma. Less likely to be Empyema but will follow cultures to rule out. Multiple left side rub fractures s/p VATS. Sacral fracture with non displaced acetabular fracture. HTN h/o multiple spine surgeries with hardware in place Recs DC Zosyn IV Start Levaquin oral Continue Vanco IV for now Follow cultures Follow clinically. d/w pt, daughter in room [id number] Jenelle Rider MD Dec 24, 2016 13:11
[2016-12-24] MEDS: LEVOFLOXACIN 750 MG PREMIX INJ 150 ML IV SCH (14:02)
[2016-12-24] MEDS ORDERED: MISCELLANEOUS PHARMACY INFORMATION XX PRN (14:45)
[2016-12-24] MEDS ORDERED: ASP: Other exception documentation: ( ) XX PRN (14:45)
--- NOTE | 2016-12-24 14:53 | HHI.IDPN ---
Subjective Subjective Remarks is a 61 y/o CM who was admitted as a trauma alert after he fell off a ladder ~ 20 feet [place] his [place] adjusting lights. He sustained multiple left-sided rib fractures with hemopneumothorax. He underwent placement of Chest tube and eventually this was not draining much. Concern for empyema lead to a left side VATS and placement of new CTs x 2. Cultures from VATS are pending at this time and no growth so far. He also was seen by ortho for multiple pelvic fractures including sacral fracture and nondisplaced acetabular fracture. Throughout his ICU stay patient has had fever on 1 day of 101 on which lead to VATS. Patient had anaerobic organism growing in empyema fluid. This was sent to [place] for identification. Patient was readmitted to ICU due to AMS, ? new aspiration pneumonia. ID is reconsulted for evaluation and Mment of Empyema and new aspiration pneumonia. 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 Patient now on room air. No chest tubes in place. Overnight events reviewed with RN. Not on pressors. UO ok. No fever No rash No diarrhea. Antibiotics Levaquin Flagyl zyvox IV Lines Line sites with no evidence of infection. Past Medical History Reviewed. Allergies: Coded Allergies: Penicillin (Verified Allergy, Unknown, Hives, 12/06/16) Pt reports hives but tolerated 2 doses of Zosyn IV on 12/05/16. Objective . Vital Signs Date Time Temp Pulse Resp B/P Pulse Ox O2 Delivery O2 Flow Rate FiO2 12/24/16 12:00 98.1 108 30 130/59 99 12/24/16 09:36 100 Nasal Cannula 3.00 12/24/16 08:00 98.5 99 18 119/62 98 12/24/16 04:00 98.6 92 14 103/53 99 12/24/16 01:58 20 12/24/16 00:00 98.6 92 14 103/53 99 12/23/16 23:45 21 12/23/16 20:15 21 12/23/16 20:00 98.6 108 16 128/55 100 12/23/16 16:00 98.4 96 20 137/63 100 12/23/16 12/23/16 12/24/16 15:00 23:00 07:00 Intake Total 958 ml 1189 ml 792 ml Output Total 750 ml 550 ml 300 ml Balance 208 ml 639 ml 492 ml Intake Oral 240 ml 120 ml IV Total 958 ml 949 ml 672 ml Output Urine Total 750 ml 550 ml 300 ml # Bowel Movements 0 0 . Laboratory Tests Test 12/23/16 04:45 White Blood Count 10.1 TH/MM3 Red Blood Count 2.48 MIL/MM3 Hemoglobin 8.4 GM/DL Hematocrit 25.0 % Mean Corpuscular Volume 101.1 FL Mean Corpuscular Hemoglobin 34.0 PG Mean Corpuscular Hemoglobin 33.6 % Concent Red Cell Distribution Width 15.1 % Platelet Count 226 TH/MM3 Mean Platelet Volume 7.5 FL Neutrophils (%) (Auto) 71.4 % Lymphocytes (%) (Auto) 13.2 % Monocytes (%) (Auto) 10.9 % Eosinophils (%) (Auto) 3.3 % Basophils (%) (Auto) 1.2 % Neutrophils # (Auto) 7.2 TH/MM3 Lymphocytes # (Auto) 1.3 TH/MM3 Monocytes # (Auto) 1.1 TH/MM3 Eosinophils # (Auto) 0.3 TH/MM3 Basophils # (Auto) 0.1 TH/MM3 CBC Comment DIFF FINAL Differential Comment Laboratory Tests Test 12/23/16 04:45 Sodium Level 137 MEQ/L Potassium Level 3.6 MEQ/L Chloride Level 102 MEQ/L Carbon Dioxide Level 26.6 MEQ/L Anion Gap 8 MEQ/L Blood Urea Nitrogen 19 MG/DL Creatinine 0.87 MG/DL Estimat Glomerular Filtration 89 ML/MIN Rate Random Glucose 181 MG/DL Calcium Level 7.0 MG/DL Protein Corrected Calcium 7.9 MG/DL Magnesium Level 1.8 MG/DL Total Bilirubin 0.4 MG/DL Aspartate Amino Transf 95 U/L (AST/SGOT) Alanine Aminotransferase 29 U/L (ALT/SGPT) Alkaline Phosphatase 153 U/L Total Protein 5.4 GM/DL Albumin 1.6 GM/DL Microbiology Date/Time Procedure Status Source Growth 12/22/16 08:30 Urine Culture - Final Complete Urine Catheterized Urine NO GROWTH IN 48 HOURS. 12/22/16 09:00 Aerobic Blood Culture - Preliminary Resulted Blood Arterial Line Staphylococcus Epidermidis 12/22/16 09:00 Anaerobic Blood Culture - Preliminary Resulted Blood Arterial Line NO GROWTH IN 2 DAYS 12/22/16 09:00 Gram Stain - Final Complete Sputum Endotracheal 12/22/16 09:00 Sputum Culture - Final Complete Escherichia Coli 12/22/16 15:13 Aerobic Blood Culture - Preliminary Resulted Blood Arterial Line NO GROWTH IN 2 DAYS 12/22/16 15:13 Anaerobic Blood Culture - Final Resulted Blood Arterial Line QNS - SEE AEROBE REPORT Imaging Last Impressions Chest X-Ray 12/07/16 0600 Signed Impressions: Service Date/Time: Wednesday, December 07, 2016 04:00 - CONCLUSION: 1. Patchy alveolar disease characteristic of edema or pneumonia. There has been no significant change when compared to the prior exam. 2. There is no evidence of pneumothorax. Mario Owen MD Chest CT 12/03/16 0000 Signed Impressions: Service Date/Time: Saturday, December 03, 2016 21:59 - CONCLUSION: 1. Left chest tube is present with the tip of the chest tube mostly above loculated air and fluid in the left pleural space. Cannot exclude a left-sided empyema. Patchy bronchopneumonia also suspected, right greater than left. Zachery Aquino MD Pelvis X-Ray 11/30/16 0000 Signed Impressions: Service Date/Time: Wednesday, November 30, 2016 10:32 - CONCLUSION: 1. Bilateral pubic rami fractures. 2. Apparent nondisplaced fracture through the left sacrum. Jovan Chu MD Chest Tube Insertion 11/30/16 0000 Signed Impressions: Service Date/Time: Wednesday, November 30, 2016 09:48 - CONCLUSION: Uncomplicated chest tube placement as above. Drake Corona MD Head CT 11/25/161950 Signed Impressions: Service Date/Time: November 20:06 - CONCLUSION: Motion degraded study without convincing evidence of acute intracranial hemorrhage. Followup noncontrasted head CT suggested in 24 hours. Neel Moyer MD Cervical Spine CT 11/25/161950 Signed Impressions: Service Date/Time: November 20:06 - CONCLUSION: 1. No fracture or subluxation of the cervical spine. 2. Degenerative changes with a chronic appearing disc osteophyte complex and uncovertebral/facet osteoarthritis causing severe spinal and bilateral foraminal stenosis at C6-C7. 3. Small, age-indeterminate posterior disc protrusion at C7/T1 causing mild spinal stenosis. Neel Moyer MD Abdomen/Pelvis CT 11/25/161950 Signed Impressions: Service Date/Time: November 20:10 - CONCLUSION: 1. No evidence of acute visceral or injury. 2. Fractures of the left body and ala of the sacrum with mildly displaced fracturing in the region of the left S2/S3 foramen. 3. Bilateral superior and inferior pubic rami fractures and a nondisplaced fracture of the left acetabulum. 4. Small presacral and left iliopsoas hematomas. I don't see active bleeding. Neel Moyer MD Thoracic Spine CT 11/25/16 0000 Signed Impressions: Service Date/Time: November 20:10 - CONCLUSION: Left T12 transverse process and facet fracture, minimally displaced. Multiple left posterior rib fractures and placed refer to the chest CT report. Thoracic vertebral bodies are intact. No subluxations. Neel Moyer MD Lumbar Spine CT 11/25/16 0000 Signed Impressions: Service Date/Time: November 20:10 - CONCLUSION: 1. Minimally to mildly displaced left transverse process fractures of L1-L4. 2. Multilevel degenerative changes as above. Large right paracentral disc fragment at L4/L5, probably nonacute. Neel Moyer MD Physical Exam GENERAL: This is a well-nourished, well-developed patient, in no apparent distress. SKIN: Multiple bruising and ecchymosis noted. HEAD: Atraumatic. Normocephalic. No temporal or scalp tenderness. EYES: Pupils equal round and reactive. Extraocular motions intact. No scleral icterus. No injection or drainage. ENT: Nose without bleeding, purulent drainage or septal hematoma. Throat without erythema, tonsillar hypertrophy or exudate. Uvula midline. Airway patent. NECK: Trachea midline. Supple, nontender, no meningeal signs. CARDIOVASCULAR: HS audible no murmur appreciated. RESPIRATORY: Clear to auscultation. Breath sounds equal bilaterally. GASTROINTESTINAL: Abdomen soft, non-tender, nondistended. MUSCULOSKELETAL: Extremities without clubbing, cyanosis, or edema. No joint tenderness, effusion, or edema noted. No calf tenderness. Negative Homans sign bilaterally. NEUROLOGICAL: Awake and alert. Grossly non focal Psych: cooperative IV line sites with no e/o infection/. Assessment & Plan Remarks Hemothorax with organized hematoma. Empyema. Anaerobic gram positive organism. Empyema. Multiple left side rub fractures s/p VATS. Sacral fracture with non displaced acetabular fracture. HTN h/o multiple spine surgeries with hardware in place Recs: DC Levaquin oral DC Flagyl oral. DC Zyvox. Start Ertapenem IV (ASP: covers Finegoldia magna in empyema intra op fluid, E.coli resistant to levaquin, PCN allergic) Follow cultures. Follow clinically. Literature reviewed given PCN allergy will pick Ertapenem IV as stated above. tevin ellis RN, Clinical pharmacist, [facility] MD Will see patient next week. Will need 4 weeks of IV Ertapenem to treat the Finegoldia Empyema, organism identified today. May need follow up imaging. to cover for me this weekend. Jenelle Boyd MD Dec 24, 2016 14:53
[2016-12-24] MEDS: ERTAPENEM INJ 1,000 MG in SODIUM CHLORIDE 0.9% INJ 100 ML IV SCH (17:21)
[2016-12-24] MEDS: REMOVE OLD NICODERM (NICOTINE) PATCH TD SCH (20:52)
[2016-12-24] MEDS: MELATONIN 5 MG TAB PO PRN (22:21)
[2016-12-25] VITALS (8 sets, daily range): BP systolic 108–150; BP diastolic 51–71; PULSE 79–91; RESP 16–20; TEMP 97.2–98.4; O2SAT 91–99
[2016-12-25] MEDS: oxyCODONE/ACETAMINOPHEN 7.5 MG/325 MG TAB PO PRN ×4 (03:02→21:38)
[2016-12-25] MEDS: RESP: ALBUTEROL 2.5 MG/IPRATROPIUM 0.5 MG NEB (SCH) NEB ×4 (03:05→19:54)
[2016-12-25] MEDS: NIFEdipine 20 MG CAP PO SCH ×3 (06:00→21:30)
[2016-12-25 07:13] LABS: AUTOMATED NEUTROPHIL # 5.9 TH/MM3 (1.8-7.7); BASOPHIL # 0.1 TH/MM3 (0-0.2); BASOPHIL % 0.8 % (0.0-2.0); EOSINOPHIL # 0.3 TH/MM3 (0-0.4); EOSINOPHIL % 4.2 % (0.0-4.0); HEMATOCRIT 23.4 % (39.0-51.0); HEMO FLAGS DIFF FINAL; LYMPH % 11.6 % (9.0-44.0); LYMPHOCYTE # 0.9 TH/MM3 (1.0-4.8); MEAN CORPUSCULAR HEMOGLOBIN 33.5 PG (27.0-34.0); MEAN CORPUSCULAR HGB CONC 33.5 % (32.0-36.0); MONO % 8.3 % (0.0-8.0); NEUT % 75.1 % (16.0-70.0); PLATELET COUNT 171 TH/MM3 (150-450); RED BLOOD COUNT 2.34 MIL/MM3 (4.50-5.90); RED CELL DISTRIBUTION WIDTH 14.8 % (11.6-17.2); WHITE BLOOD COUNT 7.8 TH/MM3 (4.0-11.0)
[2016-12-25 07:33] LABS: BICARBONATE 26.2 MEQ/L (21.0-32.0); CALCIUM-PROTEIN CORRECTED 8.5 MG/DL (8.5-10.1); TOTAL BILIRUBIN ADULT 0.4 MG/DL (0.2-1.0)
[2016-12-25] MEDS: CHLORHEXIDINE 0.12% (ORAL KIT) 15 ML CUP MT SCH ×2 (08:00→20:00)
[2016-12-25] MEDS: VASOPRESSIN INJ 40 UNITS in DEXTROSE 5% IN WATER 100ML INJ 98 ML IV SCH ×2 (08:34)
[2016-12-25] MEDS: FAMOTIDINE 20 MG TAB PO SCH ×2 (09:00→21:28)
[2016-12-25] MEDS: DOCUSATE SODIUM 50 MG/SENNA 8.6 MG TAB PO SCH ×2 (09:00→21:29)
[2016-12-25] MEDS: CALCIUM CARBONATE 500 MG CHEWABLE TAB CHEW SCH ×2 (09:00→21:28)
[2016-12-25] MEDS: LACTULOSE SYRUP 20 GM/30 ML CUP PO SCH (09:00)
[2016-12-25] MEDS: POTASSIUM CHLORIDE 20 MEQ CONTROLLED RELEASE TAB PO SCH (10:03)
[2016-12-25] MEDS: GABAPENTIN 400 MG CAP PO SCH ×3 (10:03→17:28)
[2016-12-25] MEDS: LISINOPRIL 20 MG TAB PO SCH (10:03)
[2016-12-25] MEDS: SODIUM CHLORIDE 0.9% FLUSH 5 ML FLUSH IVF SCH ×2 (10:04→21:31)
[2016-12-25] MEDS: FUROSEMIDE 20 MG/2 ML VIAL IV PUSH SCH (10:04)
[2016-12-25] MEDS: METOPROLOL TARTRATE 50 MG TAB PO SCH ×2 (10:04→21:30)
[2016-12-25] MEDS: NICOTINE 14 MG/24 HR PATCH TD SCH (10:05)
[2016-12-25] MEDS: REMOVE OLD NICODERM (NICOTINE) PATCH TD SCH (10:05)
[2016-12-25] MEDS: ENOXAPARIN SODIUM 40 MG/0.4 ML SYRINGE SQ SCH (10:11)
[2016-12-25] MEDS: SODIUM CHLOR 0.9% 1000 ML INJ 1,000 ML IV SCH ×2 (11:09→21:30)
--- NOTE | 2016-12-25 14:34 | HHI.PR ---
Subjective Remarks The patient was resting comfortably in bed. He said that he had some x-rays done and he wanted to know the results of those. He said he does not know what happened the other day when he had to be transferred to the ICU. Has been sleeping well. No acute complaints at this time. Objective Vitals Vital Signs Date Time Temp Pulse Resp B/P Pulse Ox O2 Delivery O2 Flow Rate FiO2 12/25/16 10:14 92 12/25/16 08:10 98.3 86 17 134/61 91 12/25/16 07:18 Nasal Cannula 2.00 12/25/16 04:00 98.4 91 20 108/51 94 12/25/16 00:00 98.3 83 16 119/58 99 12/24/16 22:17 95 Nasal Cannula 3.00 12/24/16 20:45 99 Nasal Cannula 3.00 12/24/16 20:45 85 12/24/16 20:00 97.1 105 20 124/48 99 I/O 12/24/16 12/24/16 12/24/16 12/25/16 12/25/16 12/25/16 07:00 15:00 23:00 07:00 15:00 23:00 Intake Total 792 ml 625 ml 480 ml 240 ml Output Total 300 ml 850 ml 800 ml 675 ml Balance 492 ml -225 ml -320 ml -435 ml Intake Oral 120 ml 500 ml 480 ml 240 ml IV Total 672 ml 125 ml Output Urine Total 300 ml 850 ml 800 ml 675 ml # Bowel Movements 0 0 Result Diagram: 12/25/16 0630 12/25/16 0630 Imaging Last Impressions Lower Extremity Ultrasound 12/23/16 0000 Signed Impressions: Service Date/Time: December 14:28 - CONCLUSION: Normal examination. Flako Salguero MD Pelvis X-Ray 12/22/16 0000 Signed Impressions: Service Date/Time: December 21:38 - CONCLUSION: No appreciable change. Truman Hussein MD Head CT 12/22/16 0000 Signed Impressions: Service Date/Time: Thursday, December 22, 2016 01:37 - CONCLUSION: 1. No acute intracranial abnormalities. No significant change from November 25. Zachery Aquino MD Chest X-Ray 12/22/16 0000 Signed Impressions: Service Date/Time: Thursday, December 22, 2016 09:01 - CONCLUSION: 1. Support apparatus in good position. 2. Improvement with minimal air space disease remaining in the left base. Ralph Garcias MD FACR CT Angiography 12/22/16 0000 Signed Impressions: Service Date/Time: Thursday, December 22, 2016 16:20 - CONCLUSION: 1. There are no central pulmonary emboli identified. 2. Small bilateral pleural effusions that do not appear to be that complicated. 3. Patchy air-space disease in both lungs. Ralph Garcias MD FACR Brain MRI 12/22/16 0000 Signed Impressions: Service Date/Time: Thursday, December 22, 2016 15:53 - CONCLUSION: No acute disease. Drake Corona MD Shoulder X-Ray 12/13/16 1203 Signed Impressions: Service Date/Time: Tuesday, December 13, 2016 13:51 - CONCLUSION: Rib fractures with a small pleural effusion on the left. There is no evidence of shoulder fracture. Ralph Garcias MD FACR Chest CT 12/03/16 0000 Signed Impressions: Service Date/Time: Saturday, December 03, 2016 21:59 - CONCLUSION: 1. Left chest tube is present with the tip of the chest tube mostly above loculated air and fluid in the left pleural space. Cannot exclude a left-sided empyema. Patchy bronchopneumonia also suspected, right greater than left. Zachery Aquino MD Chest Tube Insertion 11/30/16 0000 Signed Impressions: Service Date/Time: Wednesday, November 30, 2016 09:48 - CONCLUSION: Uncomplicated chest tube placement as above. Drake Corona MD Cervical Spine CT 11/25/161950 Signed Impressions: Service Date/Time: November 20:06 - CONCLUSION: 1. No fracture or subluxation of the cervical spine. 2. Degenerative changes with a chronic appearing disc osteophyte complex and uncovertebral/facet osteoarthritis causing severe spinal and bilateral foraminal stenosis at C6-C7. 3. Small, age-indeterminate posterior disc protrusion at C7/T1 causing mild spinal stenosis. Neel Moyer MD Abdomen/Pelvis CT 11/25/161950 Signed Impressions: Service Date/Time: November 20:10 - CONCLUSION: 1. No evidence of acute visceral or injury. 2. Fractures of the left body and ala of the sacrum with mildly displaced fracturing in the region of the left S2/S3 foramen. 3. Bilateral superior and inferior pubic rami fractures and a nondisplaced fracture of the left acetabulum. 4. Small presacral and left iliopsoas hematomas. I don't see active bleeding. Neel Moyer MD Thoracic Spine CT 11/25/16 0000 Signed Impressions: Service Date/Time: November 20:10 - CONCLUSION: Left T12 transverse process and facet fracture, minimally displaced. Multiple left posterior rib fractures and placed refer to the chest CT report. Thoracic vertebral bodies are intact. No subluxations. Neel Moyer MD Lumbar Spine CT 11/25/16 0000 Signed Impressions: Service Date/Time: November 20:10 - CONCLUSION: 1. Minimally to mildly displaced left transverse process fractures of L1-L4. 2. Multilevel degenerative changes as above. Large right paracentral disc fragment at L4/L5, probably nonacute. Neel Moyer MD Objective Remarks GENERAL: Patient is awake in no acute distress. HEENT: NC, AT. CARDIOVASCULAR: Normal rate and regular rhythm without murmurs, gallops, or rubs. RESPIRATORY: Diminished breath bilaterally. Dressing on the left chest appears intact. GASTROINTESTINAL: Abdomen soft, non-tender, non-distended. Normal active bowel sounds MUSCULOSKELETAL: Extremities without cyanosis, or edema. NEURO: Alert and oriented. Moves all ext x4. PSYCH: Mood and affect appropriate. Medications and IVs Current Medications Medications (Trade) Dose Ordered Sig/Jason Route Start Time Stop Time Status Last Admin (Zofran Inj) 4 mg Q6H PRN IV 11/25/16 20:45 11/28/16 15:59 (Pill Splitter) 1 ea UNSCH PRN OTHER 11/25/16 22:45 (Habitrol 14 Mg Patch.24 Hr) 1 patch DAILY TD 11/26/16 10:00 12/25/16 10:05 Miscellaneous Information 1 HS TD 11/26/16 21:00 12/24/16 20:52 (Romazicon Inj) 0.2 mg Q1M PRN IV PUSH 11/30/16 15:15 (Catapres) 0.1 mg Q6H PRN PO 12/01/16 11:00 12/17/16 22:06 (Roseanne-Colace) 1 tab BID PO 12/02/16 09:00 12/24/16 09:39 (NS Flush) 2 ml UNSCH PRN IVF 12/05/16 12:15 12/20/16 05:24 (NS Flush) 2 ml BID IVF 12/05/16 12:15 12/25/16 10:04 (Narcan Inj) 0.4 mg UNSCH PRN IV 12/05/16 12:15 (Lovenox Inj) 40 mg Q24H SQ 12/06/16 11:00 12/25/16 10:11 (Melatonin) 5 mg HS PRN PO 12/07/16 00:15 12/24/16 22:21 (ZyPREXA ZYDIS ODT) 5 mg HS PRN PO 12/07/16 00:15 12/07/16 01:17 (Milk Of Magnesia Liq) 30 ml DAILY PRN PO 12/09/16 09:00 (Lactulose Liq) 30 ml DAILY PO 12/09/16 09:00 12/24/16 09:35 (Prinivil) 20 mg DAILY PO 12/10/16 09:00 12/25/16 10:03 (Lopressor) 50 mg Q12HR PO 12/10/16 13:00 12/25/16 10:04 (Neurontin) 400 mg TID PO 12/14/16 13:00 12/25/16 12:17 (Pepcid) 20 mg BID PO 12/14/16 21:00 12/24/16 20:47 (Robaxin) 750 mg TID PO 12/14/16 18:00 Hold 12/18/16 10:33 (Lasix Inj) 20 mg DAILY IV PUSH 12/18/16 09:00 12/25/16 10:04 (Procardia) 20 mg Q8HR PO 12/18/16 14:00 12/25/16 12:17 (Apresoline Inj) 20 mg Q4H PRN IV PUSH 12/18/16 14:15 (Tylenol) 650 mg Q4H PRN PO 12/19/16 12:30 12/22/16 13:00 (KCl) 40 meq DAILY PO 12/20/16 09:00 12/25/16 10:03 (Tums Chew) 500 mg Q12HR CHEW 12/20/16 09:00 12/24/16 20:47 (Morphine Inj) 4 mg Q2H PRN IV 12/22/16 09:45 12/23/16 20:10 (Peridex 0.12% Liq) 15 ml BID@08,20 MT 12/22/16 20:00 12/23/16 11:20 Miscellaneous Information 1 Q361D XX 12/22/16 09:45 12/22/16 09:45 (Chlorhexidine 2% Cloth) 3 pack Taper DAILY@04 TOP 12/23/16 04:00 12/19/17 03:59 12/23/16 04:00 Chlorhexidine Gluconate 3 pack 3 pack UNSCH PRN TOP 12/22/16 09:45 Sodium Chloride 1,000 ml @ 100 mls/hr Q10H IV 12/22/16 14:00 12/24/16 16:00 (Levophed-Dextrose Drip) 250 ml @ 0 mls/hr TITRATE IV 12/22/16 14:00 12/22/16 15:21 Terbutaline Sulfate 1 mg 1 mg UNSCH PRN SQ 12/22/16 14:00 Vasopressin 40 units/Dextrose 100 ml @ 4.5 mls/hr [id number] IV 12/22/16 13:52 12/23/16 11:19 (Diprivan 1000 Mg/100ml Inj) 100 ml @ 0 mls/hr TITRATE IV 12/22/16 15:45 12/22/16 22:00 Oxycodone/ Acetaminophen 1 tab 1 tab Q4H PRN PO 12/23/16 22:00 12/25/16 14:25 (INVanz INJ/NS Inj) 100 ml @ 200 mls/hr Q24H IV 12/24/16 16:00 12/24/16 17:21 A/P Problem List: (1) Multiple rib fractures ICD Code: S22.49XA Status: Acute (2) Lung contusion ICD Code: S27.329A Status: Acute (3) Fall from ladder ICD Code: W11.XXXA Status: Acute (4) Traumatic pneumothorax ICD Code: S27.0XXA Status: Acute (5) Pelvic fracture ICD Code: S32.9XXA Status: Acute (6) HTN (hypertension) ICD Code: I10 Status: Acute (7) EtOH dependence ICD Code: F10.20 Status: Acute Assessment and Plan 58-year-old gentleman reportedly fell 20 feet off of a ladder onto his back without loss of consciousness. He may have been drinking. He was brought in as a trauma alert. Patient arrived alert with mild confusion, his [place] Coma Scale was 14 complaining of back pain and left chest pain. Patient had multiple left-sided rib fractures with hemopneumothorax. Patient also had multiple pelvic fractures with sacral fracture nondisplaced acetabular fracture. Initially managed in critical care, improved clinically and was transferred to medical-surgical floor. The pt then had altered mental status and was transferred to the ICU and intubated. Antibiotics were adjusted, he was evaluated by neurology, he was extubated and is now back on the floor and doing well. Metabolic encephalopathy The pt was transferred to the ICU and intubated. He has been extubated and is mentally alert. Head CT was negative for intracranial hemorrhage. MRI brain negative for any ischemia or acute abnormality. EEG with no evidence of seizure activity, nonspecific encephalopathy. Neuro consult appreciated. Ammonia level normal. Possible delirium secondary to sepsis. - neuro checks. - PT. - continue antibiotics. Pneumonia/ Left lung empyema S/p VATS, thoracotomy and decortication with evacuation of left empyema . S/P Diflucan IV, Zosyn and Vancomycin. Chest tube removed. - antibiotics per infectious disease. - Pain control with a bowel regimen. - Nebulizer treatments scheduled. - Monitor respiratory status, continue Acapella. - PT/OT. EtOH abuse, dependence S/P CIWA protocol. Patient went through DTs. Patient was counseled about complete cessation. He still has some encephalopathy. Unclear what his baseline is. - Minimize sedating medications. - cessation resources upon discharge. Respiratory failure Chest x-ray consistent with pulmonary edema. Echo with normal EF. CT chest negative for PE, showed small bilateral pleural effusions and minimal airspace disease. Intubated for altered mental status, successfully extubated. - continue IV Lasix. Improving. - Monitor I/O's. - oxygen and nebs as needed. - incentive spirometry. Macrocytic anemia Secondary to EtOH dependence. Hgb has been decreasing. - Thiamine, folate. - check anemia labs, Hemoccult. Status post fall Sustained multiple rib fractures, pubic rib fractures, pelvic fractures with sacral fracture nondisplaced acetabular fracture. - Orthopedic following patient. Weightbearing status was ordered. Recommended toe-touch weightbearing on the left leg. - Pain management. Patient with chronic pain even prior to this hospitalization. Pain is better controlled. Tobacco use - nicotine patch. HTN Better controlled. - continue Lopressor 50 mg twice a day and lisinopril 20 mg daily. No improvement with Amlodipine. Better with Nifedipine Q8Hrs. - clonidine as needed and Vasotec when necessary. Prophylaxis: Lovenox, SCDs. Discharge Planning Per primary. Problem Qualifiers (1) Multiple rib fractures: Qualified Code: S22.42XA - Closed fracture of multiple ribs of left side, initial encounter (2) Lung contusion: Qualified Code: S27.321A - Contusion of left lung, initial encounter (3) Fall from ladder: Qualified Code: W11.XXXA - Fall from ladder, initial encounter (4) Traumatic pneumothorax: Qualified Code: S27.0XXA - Traumatic pneumothorax, initial encounter (5) Pelvic fracture: Qualified Code: S32.810A - Multiple closed fractures of pelvis with stable disruption of pelvic [place], initial encounter (6) EtOH dependence: Jovan Clifford DO Dec 25, 2016 14:34
[2016-12-25] MEDS: SODIUM CHLORIDE 0.9% FLUSH 5 ML FLUSH IVF PRN (15:59)
[2016-12-25] MEDS: ERTAPENEM INJ 1,000 MG in SODIUM CHLORIDE 0.9% INJ 100 ML IV SCH (16:00)
[2016-12-25 16:30] LABS: TRANSFERRIN IRON PROFILE 100 MG/DL (200-360)
[2016-12-25 16:54] LABS: FERRITIN 975 NG/ML (26-388)
[2016-12-25] MEDS: MELATONIN 5 MG TAB PO PRN (23:26)
[2016-12-26] VITALS (9 sets, daily range): BP systolic 119–157; BP diastolic 56–73; PULSE 71–97; RESP 17–22; TEMP 96.5–98.7; O2SAT 92–99
[2016-12-26] MEDS: RESP: ALBUTEROL 2.5 MG/IPRATROPIUM 0.5 MG NEB (SCH) NEB (03:57)
[2016-12-26] MEDS: CHLORHEXIDINE GLUCONATE 2 % 1 PACK (2 CLOTHS) TOP SCH (04:00)
[2016-12-26] MEDS: NIFEdipine 20 MG CAP PO SCH ×3 (06:15→23:29)
[2016-12-26] MEDS: oxyCODONE/ACETAMINOPHEN 7.5 MG/325 MG TAB PO PRN (06:18)
[2016-12-26] MEDS: VASOPRESSIN INJ 40 UNITS in DEXTROSE 5% IN WATER 100ML INJ 98 ML IV SCH ×2 (06:48)
[2016-12-26] MEDS: SODIUM CHLOR 0.9% 1000 ML INJ 1,000 ML IV SCH (08:00)
[2016-12-26] MEDS: CHLORHEXIDINE 0.12% (ORAL KIT) 15 ML CUP MT SCH (08:00)
[2016-12-26] MEDS: GABAPENTIN 400 MG CAP PO SCH ×3 (08:52→18:00)
[2016-12-26] MEDS: POTASSIUM CHLORIDE 20 MEQ CONTROLLED RELEASE TAB PO SCH (08:52)
[2016-12-26] MEDS: LISINOPRIL 20 MG TAB PO SCH (08:52)
[2016-12-26] MEDS: CALCIUM CARBONATE 500 MG CHEWABLE TAB CHEW SCH ×2 (08:52→23:28)
[2016-12-26] MEDS: METOPROLOL TARTRATE 50 MG TAB PO SCH ×2 (08:52→23:29)
[2016-12-26] MEDS: FUROSEMIDE 20 MG/2 ML VIAL IV PUSH SCH (08:52)
[2016-12-26] MEDS: DOCUSATE SODIUM 50 MG/SENNA 8.6 MG TAB PO SCH ×2 (08:53→23:28)
[2016-12-26] MEDS: FAMOTIDINE 20 MG TAB PO SCH ×2 (08:53→23:29)
[2016-12-26] MEDS: NICOTINE 14 MG/24 HR PATCH TD SCH (08:53)
[2016-12-26] MEDS: REMOVE OLD NICODERM (NICOTINE) PATCH TD SCH (08:53)
[2016-12-26] MEDS: LACTULOSE SYRUP 20 GM/30 ML CUP PO SCH (08:53)
[2016-12-26 08:56] LABS: AUTOMATED NEUTROPHIL # 5.6 TH/MM3 (1.8-7.7); BASOPHIL # 0.1 TH/MM3 (0-0.2); BASOPHIL % 1.4 % (0.0-2.0); EOSINOPHIL # 0.2 TH/MM3 (0-0.4); EOSINOPHIL % 3.1 % (0.0-4.0); HEMATOCRIT 27.9 % (39.0-51.0); HEMO FLAGS DIFF FINAL; LYMPH % 13.5 % (9.0-44.0); LYMPHOCYTE # 1.1 TH/MM3 (1.0-4.8); MEAN CELL VOLUME 100.4 FL (80.0-100.0); MEAN CORPUSCULAR HGB CONC 32.8 % (32.0-36.0); PLATELET COUNT 216 TH/MM3 (150-450); RED BLOOD COUNT 2.77 MIL/MM3 (4.50-5.90); RED CELL DISTRIBUTION WIDTH 14.9 % (11.6-17.2); WHITE BLOOD COUNT 7.8 TH/MM3 (4.0-11.0)
[2016-12-26] MEDS: SODIUM CHLORIDE 0.9% FLUSH 5 ML FLUSH IVF SCH ×2 (08:56→23:37)
[2016-12-26 09:25] LABS: BICARBONATE 29.1 MEQ/L (21.0-32.0); POTASSIUM 3.8 MEQ/L (3.5-5.1); TOTAL BILIRUBIN ADULT 0.4 MG/DL (0.2-1.0)
--- NOTE | 2016-12-26 09:28 | HHI.PR ---
Subjective Remarks The patient says he does not have much of an appetite. He said he was having a difficult time with swallowing. He said his pain medications were not working that well. No other acute complaints at this time. Objective Vitals Vital Signs Date Time Temp Pulse Resp B/P Pulse Ox O2 Delivery O2 Flow Rate FiO2 12/26/16 09:00 Nasal Cannula 2.00 12/26/16 08:38 94 Nasal Cannula 2.00 12/26/16 04:22 98.7 75 21 138/67 92 12/26/16 00:28 97.3 75 22 122/58 93 12/25/16 20:40 94 Nasal Cannula 3.00 12/25/16 20:26 97.9 83 20 150/71 92 12/25/16 16:05 98.3 82 17 134/69 93 12/25/16 12:09 97.2 79 17 134/62 92 12/25/16 10:14 92 I/O 12/25/16 12/25/16 12/25/16 12/26/16 12/26/16 12/26/16 07:00 15:00 23:00 07:00 15:00 23:00 Intake Total 240 ml 960 ml 816 ml 360 ml Output Total 675 ml 1750 ml 650 ml 800 ml Balance -435 ml -790 ml 166 ml -440 ml Intake Oral 240 ml 960 ml 720 ml 360 ml IV Total 96 ml Output Urine Total 675 ml 1750 ml 650 ml 800 ml # Voids 0 # Bowel Movements 0 2 0 0 Result Diagram: 12/26/16 0749 12/25/16 0630 Imaging Last Impressions Lower Extremity Ultrasound 12/23/16 0000 Signed Impressions: Service Date/Time: December 14:28 - CONCLUSION: Normal examination. Flako Salguero MD Pelvis X-Ray 12/22/16 0000 Signed Impressions: Service Date/Time: December 21:38 - CONCLUSION: No appreciable change. Truman Hussein MD Head CT 12/22/16 0000 Signed Impressions: Service Date/Time: Thursday, December 22, 2016 01:37 - CONCLUSION: 1. No acute intracranial abnormalities. No significant change from November 25. Zachery Aquino MD Chest X-Ray 12/22/16 0000 Signed Impressions: Service Date/Time: Thursday, December 22, 2016 09:01 - CONCLUSION: 1. Support apparatus in good position. 2. Improvement with minimal air space disease remaining in the left base. Ralph Garcias MD FACR CT Angiography 12/22/16 0000 Signed Impressions: Service Date/Time: Thursday, December 22, 2016 16:20 - CONCLUSION: 1. There are no central pulmonary emboli identified. 2. Small bilateral pleural effusions that do not appear to be that complicated. 3. Patchy air-space disease in both lungs. Ralph Garcias MD FACR Brain MRI 12/22/16 0000 Signed Impressions: Service Date/Time: Thursday, December 22, 2016 15:53 - CONCLUSION: No acute disease. Drake Corona MD Shoulder X-Ray 12/13/16 1203 Signed Impressions: Service Date/Time: Tuesday, December 13, 2016 13:51 - CONCLUSION: Rib fractures with a small pleural effusion on the left. There is no evidence of shoulder fracture. Ralph Garcias MD FACR Chest CT 12/03/16 0000 Signed Impressions: Service Date/Time: Saturday, December 03, 2016 21:59 - CONCLUSION: 1. Left chest tube is present with the tip of the chest tube mostly above loculated air and fluid in the left pleural space. Cannot exclude a left-sided empyema. Patchy bronchopneumonia also suspected, right greater than left. Zachery Aquino MD Chest Tube Insertion 11/30/16 0000 Signed Impressions: Service Date/Time: Wednesday, November 30, 2016 09:48 - CONCLUSION: Uncomplicated chest tube placement as above. Drake Corona MD Cervical Spine CT 11/25/161950 Signed Impressions: Service Date/Time: November 20:06 - CONCLUSION: 1. No fracture or subluxation of the cervical spine. 2. Degenerative changes with a chronic appearing disc osteophyte complex and uncovertebral/facet osteoarthritis causing severe spinal and bilateral foraminal stenosis at C6-C7. 3. Small, age-indeterminate posterior disc protrusion at C7/T1 causing mild spinal stenosis. Neel Moyer MD Abdomen/Pelvis CT 11/25/161950 Signed Impressions: Service Date/Time: November 20:10 - CONCLUSION: 1. No evidence of acute visceral or injury. 2. Fractures of the left body and ala of the sacrum with mildly displaced fracturing in the region of the left S2/S3 foramen. 3. Bilateral superior and inferior pubic rami fractures and a nondisplaced fracture of the left acetabulum. 4. Small presacral and left iliopsoas hematomas. I don't see active bleeding. Neel Moyer MD Thoracic Spine CT 11/25/16 0000 Signed Impressions: Service Date/Time: November 20:10 - CONCLUSION: Left T12 transverse process and facet fracture, minimally displaced. Multiple left posterior rib fractures and placed refer to the chest CT report. Thoracic vertebral bodies are intact. No subluxations. Neel Moyer MD Lumbar Spine CT 11/25/16 0000 Signed Impressions: Service Date/Time: November 20:10 - CONCLUSION: 1. Minimally to mildly displaced left transverse process fractures of L1-L4. 2. Multilevel degenerative changes as above. Large right paracentral disc fragment at L4/L5, probably nonacute. Neel Moyer MD Objective Remarks GENERAL: Patient is awake in no acute distress. HEENT: NC, AT. CARDIOVASCULAR: Normal rate and regular rhythm without murmurs, gallops, or rubs. RESPIRATORY: Diminished breath bilaterally. Scattered rhonchi. Dressing on the left chest appears intact. GASTROINTESTINAL: Abdomen soft, non-tender, non-distended. Normal active bowel sounds MUSCULOSKELETAL: Extremities without cyanosis, or edema. NEURO: Alert and oriented. Moves all ext x4. PSYCH: Mood and affect appropriate. Medications and IVs Current Medications Medications (Trade) Dose Ordered Sig/Jason Route Start Time Stop Time Status Last Admin (Zofran Inj) 4 mg Q6H PRN IV 11/25/16 20:45 11/28/16 15:59 (Pill Splitter) 1 ea UNSCH PRN OTHER 11/25/16 22:45 (Habitrol 14 Mg Patch.24 Hr) 1 patch DAILY TD 11/26/16 10:00 12/26/16 08:53 Miscellaneous Information 1 HS TD 11/26/16 21:00 12/24/16 20:52 (Romazicon Inj) 0.2 mg Q1M PRN IV PUSH 11/30/16 15:15 (Catapres) 0.1 mg Q6H PRN PO 12/01/16 11:00 12/17/16 22:06 (Roseanne-Colace) 1 tab BID PO 12/02/16 09:00 12/24/16 09:39 (NS Flush) 2 ml UNSCH PRN IVF 12/05/16 12:15 12/25/16 15:59 (NS Flush) 2 ml BID IVF 12/05/16 12:15 12/26/16 08:56 (Narcan Inj) 0.4 mg UNSCH PRN IV 12/05/16 12:15 (Lovenox Inj) 40 mg Q24H SQ 12/06/16 11:00 12/25/16 10:11 (Melatonin) 5 mg HS PRN PO 12/07/16 00:15 12/25/16 23:26 (ZyPREXA ZYDIS ODT) 5 mg HS PRN PO 12/07/16 00:15 12/07/16 01:17 (Milk Of Magnesia Liq) 30 ml DAILY PRN PO 12/09/16 09:00 (Lactulose Liq) 30 ml DAILY PO 12/09/16 09:00 12/24/16 09:35 (Prinivil) 20 mg DAILY PO 12/10/16 09:00 12/26/16 08:52 (Lopressor) 50 mg Q12HR PO 12/10/16 13:00 12/26/16 08:52 (Neurontin) 400 mg TID PO 12/14/16 13:00 12/26/16 08:52 (Pepcid) 20 mg BID PO 12/14/16 21:00 12/24/16 20:47 (Robaxin) 750 mg TID PO 12/14/16 18:00 Hold 12/18/16 10:33 (Lasix Inj) 20 mg DAILY IV PUSH 12/18/16 09:00 12/26/16 08:52 (Procardia) 20 mg Q8HR PO 12/18/16 14:00 12/26/16 06:15 (Apresoline Inj) 20 mg Q4H PRN IV PUSH 12/18/16 14:15 (Tylenol) 650 mg Q4H PRN PO 12/19/16 12:30 12/22/16 13:00 (KCl) 40 meq DAILY PO 12/20/16 09:00 12/26/16 08:52 (Tums Chew) 500 mg Q12HR CHEW 12/20/16 09:00 12/26/16 08:52 (Morphine Inj) 4 mg Q2H PRN IV 12/22/16 09:45 12/23/16 20:10 (Peridex 0.12% Liq) 15 ml BID@08,20 MT 12/22/16 20:00 12/23/16 11:20 Miscellaneous Information 1 Q361D XX 12/22/16 09:45 12/22/16 09:45 (Chlorhexidine 2% Cloth) 3 pack Taper DAILY@04 TOP 12/23/16 04:00 12/19/17 03:59 12/23/16 04:00 Chlorhexidine Gluconate 3 pack 3 pack UNSCH PRN TOP 12/22/16 09:45 Sodium Chloride 1,000 ml @ 100 mls/hr Q10H IV 12/22/16 14:00 12/24/16 16:00 (Levophed-Dextrose Drip) 250 ml @ 0 mls/hr TITRATE IV 12/22/16 14:00 12/22/16 15:21 Terbutaline Sulfate 1 mg 1 mg UNSCH PRN SQ 12/22/16 14:00 Vasopressin 40 units/Dextrose 100 ml @ 4.5 mls/hr [id number] IV 12/22/16 13:52 12/23/16 11:19 (Diprivan 1000 Mg/100ml Inj) 100 ml @ 0 mls/hr TITRATE IV 12/22/16 15:45 12/22/16 22:00 Oxycodone/ Acetaminophen 1 tab 1 tab Q4H PRN PO 12/23/16 22:00 12/26/16 06:18 (INVanz INJ/NS Inj) 100 ml @ 200 mls/hr Q24H IV 12/24/16 16:00 12/25/16 16:00 A/P Problem List: (1) Multiple rib fractures ICD Code: S22.49XA Status: Acute (2) Lung contusion ICD Code: S27.329A Status: Acute (3) Fall from ladder ICD Code: W11.XXXA Status: Acute (4) Traumatic pneumothorax ICD Code: S27.0XXA Status: Acute (5) Pelvic fracture ICD Code: S32.9XXA Status: Acute (6) HTN (hypertension) ICD Code: I10 Status: Acute (7) EtOH dependence ICD Code: F10.20 Status: Acute Assessment and Plan 58-year-old gentleman reportedly fell 20 feet off from a tree onto his back without loss of consciousness. He was brought in as a trauma alert. Patient arrived alert with mild confusion, his [place] Coma Scale was 14 complaining of back pain and left chest pain. Patient had multiple left-sided rib fractures with hemopneumothorax. Patient also had multiple pelvic fractures with sacral fracture nondisplaced acetabular fracture. Initially managed in critical care, improved clinically and was transferred to medical-surgical floor. The pt then had altered mental status and was transferred to the ICU and intubated. Antibiotics were adjusted, he was evaluated by neurology, he was extubated and is now back on the floor and doing well. Metabolic encephalopathy The pt was transferred to the ICU and intubated. He has been extubated and is mentally alert. Head CT was negative for intracranial hemorrhage. MRI brain negative for any ischemia or acute abnormality. EEG with no evidence of seizure activity, nonspecific encephalopathy. Neuro consult appreciated. Ammonia level normal. Possible delirium secondary to sepsis. Improved. He does endorse difficulty swallowing. - neuro checks. - PT/ OT. - continue antibiotics. - swallow eval with speech therapy. Pneumonia/ Left lung empyema S/p VATS, thoracotomy and decortication with evacuation of left empyema . S/P Diflucan IV, Zosyn and Vancomycin. Chest tube removed. - antibiotics per infectious disease. - Pain control with a bowel regimen. - Nebulizer treatments scheduled. - Monitor respiratory status, continue Acapella. - PT/OT. EtOH abuse, dependence S/P CIWA protocol. Patient went through DTs. Patient was counseled about complete cessation. He still has some encephalopathy. Unclear what his baseline is. - Minimize sedating medications. - cessation resources upon discharge. Respiratory failure Chest x-ray consistent with pulmonary edema. Echo with normal EF. CT chest negative for PE, showed small bilateral pleural effusions and minimal airspace disease. Intubated for altered mental status, successfully extubated. - continue IV Lasix. Improving. - Monitor I/O's. - oxygen and nebs as needed. - incentive spirometry. Macrocytic anemia Secondary to EtOH dependence. Hgb has been decreasing. Consistent with anemia of chronic disease. Improved 12/26. - Thiamine, folate. - check Hemoccult. Status post fall Sustained multiple rib fractures, pubic rib fractures, pelvic fractures with sacral fracture nondisplaced acetabular fracture. - Orthopedic following patient. Weightbearing status was ordered. Recommended toe-touch weightbearing on the left leg. - Pain management. Patient with chronic pain even prior to this hospitalization. Pain is better controlled. - PT/OT. HTN Well controlled 3. - continue Lopressor 50 mg twice a day and lisinopril 20 mg daily. No improvement with Amlodipine. Better with Nifedipine Q8Hrs. - clonidine as needed and Vasotec when necessary. Prophylaxis: Lovenox, SCDs. Discharge Planning Per primary. Problem Qualifiers (1) Multiple rib fractures: Qualified Code: S22.42XA - Closed fracture of multiple ribs of left side, initial encounter (2) Lung contusion: Qualified Code: S27.321A - Contusion of left lung, initial encounter (3) Fall from ladder: Qualified Code: W11.XXXA - Fall from ladder, initial encounter (4) Traumatic pneumothorax: Qualified Code: S27.0XXA - Traumatic pneumothorax, initial encounter (5) Pelvic fracture: Qualified Code: S32.810A - Multiple closed fractures of pelvis with stable disruption of pelvic [place], initial encounter (6) EtOH dependence: Jovan Clifford DO Dec 26, 2016 09:28
[2016-12-26] MEDS: ENOXAPARIN SODIUM 40 MG/0.4 ML SYRINGE SQ SCH (10:47)
[2016-12-26] MEDS: SODIUM CHLORIDE 0.9% FLUSH 5 ML FLUSH IVF PRN (14:43)
[2016-12-26] MEDS: ERTAPENEM INJ 1,000 MG in SODIUM CHLORIDE 0.9% INJ 100 ML IV SCH (14:43)
[2016-12-27] VITALS (8 sets, daily range): BP systolic 103–137; BP diastolic 53–78; PULSE 79–101; RESP 16–18; TEMP 96.5–98.3; O2SAT 92–96
[2016-12-27] MEDS: NIFEdipine 20 MG CAP PO SCH ×3 (05:31→20:48)
[2016-12-27] MEDS: LACTULOSE SYRUP 20 GM/30 ML CUP PO SCH (09:00)
[2016-12-27] MEDS: CALCIUM CARBONATE 500 MG CHEWABLE TAB CHEW SCH ×2 (09:30→20:45)
[2016-12-27] MEDS: DOCUSATE SODIUM 50 MG/SENNA 8.6 MG TAB PO SCH ×2 (09:30→20:46)
[2016-12-27] MEDS: SODIUM CHLORIDE 0.9% FLUSH 5 ML FLUSH IVF SCH ×2 (09:30→20:49)
[2016-12-27] MEDS: LISINOPRIL 20 MG TAB PO SCH (09:30)
[2016-12-27] MEDS: FAMOTIDINE 20 MG TAB PO SCH ×2 (09:30→20:45)
[2016-12-27] MEDS: METOPROLOL TARTRATE 50 MG TAB PO SCH ×2 (09:30→20:46)
[2016-12-27] MEDS: FUROSEMIDE 20 MG/2 ML VIAL IV PUSH SCH (09:30)
[2016-12-27] MEDS: POTASSIUM CHLORIDE 20 MEQ CONTROLLED RELEASE TAB PO SCH (09:30)
[2016-12-27] MEDS: GABAPENTIN 400 MG CAP PO SCH ×3 (09:30→20:46)
[2016-12-27] MEDS: NICOTINE 14 MG/24 HR PATCH TD SCH (09:32)
--- NOTE | 2016-12-27 10:11 | HHI.PR ---
Subjective Remarks The patient wanted to keep his Guillaume catheter in. He said he has shortness of breath sometimes. Otherwise had no acute complaints. Discussed with nursing. Objective Vitals Vital Signs Date Time Temp Pulse Resp B/P Pulse Ox O2 Delivery O2 Flow Rate FiO2 12/27/16 09:28 130/60 Automatic Cuff 12/27/16 08:00 96.6 83 18 103/53 93 12/27/16 04:20 98.3 101 18 136/65 92 12/26/16 23:40 97.7 97 17 157/73 94 12/26/16 20:25 96.5 82 18 151/71 92 12/26/16 18:05 Nasal Cannula 2.00 12/26/16 18:01 94 Nasal Cannula 3.00 12/26/16 15:19 98.0 73 18 119/56 92 12/26/16 12:10 96.9 71 18 122/56 95 I/O 12/26/16 12/26/16 12/26/16 12/27/16 12/27/16 12/27/16 07:00 15:00 23:00 07:00 15:00 23:00 Intake Total 360 ml 640 ml 579 ml 240 ml Output Total 800 ml 850 ml 750 ml 1350 ml Balance -440 ml -210 ml -171 ml -1110 ml Intake Oral 360 ml 640 ml 480 ml 240 ml IV Total 99 ml Output Urine Total 800 ml 850 ml 750 ml 1350 ml # Voids 0 # Bowel Movements 0 0 0 0 Result Diagram: 12/26/16 0749 12/26/16 0749 Imaging Last Impressions Lower Extremity Ultrasound 12/23/16 0000 Signed Impressions: Service Date/Time: December 14:28 - CONCLUSION: Normal examination. Flako Salguero MD Pelvis X-Ray 12/22/16 0000 Signed Impressions: Service Date/Time: December 21:38 - CONCLUSION: No appreciable change. Truman Hussein MD Head CT 12/22/16 0000 Signed Impressions: Service Date/Time: Thursday, December 22, 2016 01:37 - CONCLUSION: 1. No acute intracranial abnormalities. No significant change from November 25. Zachery Aquino MD Chest X-Ray 12/22/16 0000 Signed Impressions: Service Date/Time: Thursday, December 22, 2016 09:01 - CONCLUSION: 1. Support apparatus in good position. 2. Improvement with minimal air space disease remaining in the left base. Ralph Garcias MD FACR CT Angiography 12/22/16 0000 Signed Impressions: Service Date/Time: Thursday, December 22, 2016 16:20 - CONCLUSION: 1. There are no central pulmonary emboli identified. 2. Small bilateral pleural effusions that do not appear to be that complicated. 3. Patchy air-space disease in both lungs. Ralph Garcias MD FACR Brain MRI 12/22/16 0000 Signed Impressions: Service Date/Time: Thursday, December 22, 2016 15:53 - CONCLUSION: No acute disease. Drake Corona MD Shoulder X-Ray 12/13/16 1203 Signed Impressions: Service Date/Time: Tuesday, December 13, 2016 13:51 - CONCLUSION: Rib fractures with a small pleural effusion on the left. There is no evidence of shoulder fracture. Ralph Garcias MD FACR Chest CT 12/03/16 0000 Signed Impressions: Service Date/Time: Saturday, December 03, 2016 21:59 - CONCLUSION: 1. Left chest tube is present with the tip of the chest tube mostly above loculated air and fluid in the left pleural space. Cannot exclude a left-sided empyema. Patchy bronchopneumonia also suspected, right greater than left. Zachery Aquino MD Chest Tube Insertion 11/30/16 0000 Signed Impressions: Service Date/Time: Wednesday, November 30, 2016 09:48 - CONCLUSION: Uncomplicated chest tube placement as above. Drake Corona MD Cervical Spine CT 11/25/161950 Signed Impressions: Service Date/Time: November 20:06 - CONCLUSION: 1. No fracture or subluxation of the cervical spine. 2. Degenerative changes with a chronic appearing disc osteophyte complex and uncovertebral/facet osteoarthritis causing severe spinal and bilateral foraminal stenosis at C6-C7. 3. Small, age-indeterminate posterior disc protrusion at C7/T1 causing mild spinal stenosis. Neel Moyer MD Abdomen/Pelvis CT 11/25/161950 Signed Impressions: Service Date/Time: November 20:10 - CONCLUSION: 1. No evidence of acute visceral or injury. 2. Fractures of the left body and ala of the sacrum with mildly displaced fracturing in the region of the left S2/S3 foramen. 3. Bilateral superior and inferior pubic rami fractures and a nondisplaced fracture of the left acetabulum. 4. Small presacral and left iliopsoas hematomas. I don't see active bleeding. Neel Moyer MD Thoracic Spine CT 11/25/16 0000 Signed Impressions: Service Date/Time: November 20:10 - CONCLUSION: Left T12 transverse process and facet fracture, minimally displaced. Multiple left posterior rib fractures and placed refer to the chest CT report. Thoracic vertebral bodies are intact. No subluxations. Neel Moyer MD Lumbar Spine CT 11/25/16 0000 Signed Impressions: Service Date/Time: November 20:10 - CONCLUSION: 1. Minimally to mildly displaced left transverse process fractures of L1-L4. 2. Multilevel degenerative changes as above. Large right paracentral disc fragment at L4/L5, probably nonacute. Neel Moyer MD Objective Remarks GENERAL: Patient is awake in no acute distress. HEENT: NC, AT. CARDIOVASCULAR: Normal rate and regular rhythm without murmurs, gallops, or rubs. RESPIRATORY: Diminished breath bilaterally. Scattered rhonchi. Dressing on the left chest appears intact. GASTROINTESTINAL: Abdomen soft, non-tender, non-distended. Normal active bowel sounds MUSCULOSKELETAL: Trace edema in the right lower extremity, 1+ edema in the left lower extremity. NEURO: Alert and oriented. Moves all ext x4. PSYCH: Mildly agitated. Medications and IVs Current Medications Medications (Trade) Dose Ordered Sig/Jason Route Start Time Stop Time Status Last Admin (Zofran Inj) 4 mg Q6H PRN IV 11/25/16 20:45 11/28/16 15:59 (Pill Splitter) 1 ea UNSCH PRN OTHER 11/25/16 22:45 (Habitrol 14 Mg Patch.24 Hr) 1 patch DAILY TD 11/26/16 10:00 12/27/16 09:32 Miscellaneous Information 1 HS TD 11/26/16 21:00 12/24/16 20:52 (Romazicon Inj) 0.2 mg Q1M PRN IV PUSH 11/30/16 15:15 (Catapres) 0.1 mg Q6H PRN PO 12/01/16 11:00 12/17/16 22:06 (Roseanne-Colace) 1 tab BID PO 12/02/16 09:00 12/27/16 09:30 (NS Flush) 2 ml UNSCH PRN IVF 12/05/16 12:15 12/26/16 14:43 (NS Flush) 2 ml BID IVF 12/05/16 12:15 12/27/16 09:30 (Narcan Inj) 0.4 mg UNSCH PRN IV 12/05/16 12:15 (Lovenox Inj) 40 mg Q24H SQ 12/06/16 11:00 12/26/16 10:47 (Melatonin) 5 mg HS PRN PO 12/07/16 00:15 12/25/16 23:26 (ZyPREXA ZYDIS ODT) 5 mg HS PRN PO 12/07/16 00:15 12/07/16 01:17 (Milk Of Magnesia Liq) 30 ml DAILY PRN PO 12/09/16 09:00 (Lactulose Liq) 30 ml DAILY PO 12/09/16 09:00 12/24/16 09:35 (Prinivil) 20 mg DAILY PO 12/10/16 09:00 12/27/16 09:30 (Lopressor) 50 mg Q12HR PO 12/10/16 13:00 12/27/16 09:30 (Neurontin) 400 mg TID PO 12/14/16 13:00 12/27/16 09:30 (Pepcid) 20 mg BID PO 12/14/16 21:00 12/27/16 09:30 (Robaxin) 750 mg TID PO 12/14/16 18:00 Hold 12/18/16 10:33 (Lasix Inj) 20 mg DAILY IV PUSH 12/18/16 09:00 12/27/16 09:30 (Procardia) 20 mg Q8HR PO 12/18/16 14:00 12/27/16 05:31 (Apresoline Inj) 20 mg Q4H PRN IV PUSH 12/18/16 14:15 (Tylenol) 650 mg Q4H PRN PO 12/19/16 12:30 12/22/16 13:00 (KCl) 40 meq DAILY PO 12/20/16 09:00 12/27/16 09:30 (Tums Chew) 500 mg Q12HR CHEW 12/20/16 09:00 12/27/16 09:30 Miscellaneous Information 1 Q361D XX 12/22/16 09:45 12/22/16 09:45 Terbutaline Sulfate 1 mg 1 mg UNSCH PRN SQ 12/22/16 14:00 (INVanz INJ/NS Inj) 100 ml @ 200 mls/hr Q24H IV 12/24/16 16:00 12/26/16 14:43 (Roxicodone) 5 mg Q4H PRN PO 12/26/16 09:30 (Roxicodone) 10 mg Q4H PRN PO 12/26/16 09:30 12/26/16 14:42 A/P Problem List: (1) Multiple rib fractures ICD Code: S22.49XA Status: Acute (2) Lung contusion ICD Code: S27.329A Status: Acute (3) Fall from ladder ICD Code: W11.XXXA Status: Acute (4) Traumatic pneumothorax ICD Code: S27.0XXA Status: Acute (5) Pelvic fracture ICD Code: S32.9XXA Status: Acute (6) HTN (hypertension) ICD Code: I10 Status: Acute (7) EtOH dependence ICD Code: F10.20 Status: Acute Assessment and Plan 58-year-old gentleman reportedly fell 20 feet off from a tree onto his back without loss of consciousness. He was brought in as a trauma alert. Patient arrived alert with mild confusion, his [place] Coma Scale was 14 complaining of back pain and left chest pain. Patient had multiple left-sided rib fractures with hemopneumothorax. Patient also had multiple pelvic fractures with sacral fracture nondisplaced acetabular fracture. Initially managed in critical care, improved clinically and was transferred to medical-surgical floor. The pt then had altered mental status and was transferred to the ICU and intubated. Antibiotics were adjusted, he was evaluated by neurology, he was extubated and is now back on the floor and doing well. Metabolic encephalopathy The pt was transferred to the ICU and intubated. He has been extubated and is mentally alert. Head CT was negative for intracranial hemorrhage. MRI brain negative for any ischemia or acute abnormality. EEG with no evidence of seizure activity, nonspecific encephalopathy. Neuro consult appreciated. Ammonia level normal. Possible delirium secondary to sepsis. Improved. He does endorse difficulty swallowing. He was evaluated by speech therapy. - neuro checks. - PT/ OT. - continue antibiotics. Pneumonia/ Left lung empyema S/p VATS, thoracotomy and decortication with evacuation of left empyema . S/P Diflucan IV, Zosyn and Vancomycin. Chest tube removed. - antibiotics per infectious disease. - Pain control with a bowel regimen. - Nebulizer treatments scheduled. - Monitor respiratory status, continue Acapella. - PT/OT. EtOH abuse, dependence S/P CIWA protocol. Patient went through DTs. Patient was counseled about complete cessation. He still has some encephalopathy. Unclear what his baseline is. - Minimize sedating medications. - cessation resources upon discharge. Respiratory failure Chest x-ray consistent with pulmonary edema. Echo with normal EF. CT chest negative for PE, showed small bilateral pleural effusions and minimal airspace disease. Intubated for altered mental status, successfully extubated. - continue IV Lasix. Improving. - Monitor I/O's. Keep Guillaume in for now. - oxygen and nebs as needed. - incentive spirometry. Elevated LFTs AST and alkaline phosphatase have been elevated. - Check liver ultrasound. - Hepatitis profile. Macrocytic anemia Secondary to EtOH dependence. Hgb has been decreasing. Consistent with anemia of chronic disease. Improved 12/26. - Thiamine, folate. - check Hemoccult. Status post fall Sustained multiple rib fractures, pubic rib fractures, pelvic fractures with sacral fracture nondisplaced acetabular fracture. - Orthopedic following patient. Weightbearing status was ordered. Recommended toe-touch weightbearing on the left leg. - Pain management with a bowel regimen. - PT/OT. HTN Relatively well controlled 12/27. - continue Lopressor 50 mg twice a day and lisinopril 20 mg daily. No improvement with Amlodipine. Better with Nifedipine Q8Hrs. - clonidine as needed and Vasotec when necessary. Prophylaxis: Lovenox, SCDs. Discharge Planning Awaiting clinical improvement. Problem Qualifiers (1) Multiple rib fractures: Qualified Code: S22.42XA - Closed fracture of multiple ribs of left side, initial encounter (2) Lung contusion: Qualified Code: S27.321A - Contusion of left lung, initial encounter (3) Fall from ladder: Qualified Code: W11.XXXA - Fall from ladder, initial encounter (4) Traumatic pneumothorax: Qualified Code: S27.0XXA - Traumatic pneumothorax, initial encounter (5) Pelvic fracture: Qualified Code: S32.810A - Multiple closed fractures of pelvis with stable disruption of pelvic [place], initial encounter (6) EtOH dependence: Jovan Clifford DO Dec 27, 2016 10:11
[2016-12-27] MEDS: ENOXAPARIN SODIUM 40 MG/0.4 ML SYRINGE SQ SCH (12:02)
[2016-12-27] MEDS: ERTAPENEM INJ 1,000 MG in SODIUM CHLORIDE 0.9% INJ 100 ML IV SCH (16:11)
[2016-12-27] MEDS: REMOVE OLD NICODERM (NICOTINE) PATCH TD SCH (20:46)
[2016-12-27] MEDS: MELATONIN 5 MG TAB PO PRN (22:33)
--- NOTE | 2016-12-27 23:28 | RADRPT ---
EXAM DATE/TIME: 12/27/2016 20:18 [facility] COMPARISON: No previous studies available for comparison. INDICATIONS : Increased lab values. MEDICAL HISTORY : Joint pain. Herniated disk. ETOH abuse. Multiple rib fractures. Pelvic fracture. SURGICAL HISTORY : Cervical spine surgery. ENCOUNTER: Initial ACUITY: 1 day PAIN SCORE: 8/10 LOCATION: Bilateral upper quadrant MEASUREMENTS: LIVER: 16.1 cm length COMMON DUCT: 2 mm RIGHT KIDNEY: 12.9 x 5.7 x 5.0 cm SPLEEN: 11.5 cm length FINDINGS: LIVER: Normal echotexture without focal lesion or ductal dilatation. COMMON DUCT: No intraluminal mass or stone visualized. GALLBLADDER: Contains no stones, demonstrates no wall thickening or pericholecystic fluid. PANCREAS: Heterogeneous echotexture. The pancreatic duct is borderline prominent. RIGHT KIDNEY: No hydronephrosis, stone or mass. SPLEEN: No focal lesion. MISCELLANEOUS: Small bilateral pleural effusions. CONCLUSION: 1. Small bilateral pleural effusions. 2. Heterogeneous pancreatic echotexture with minimal prominence of the pancreatic duct. 3. Otherwise negative. Alexis Bustillo MD on December 27, 2016 at 23:23 Board Certified Radiologist. This report was verified electronically.
[2016-12-28] VITALS (9 sets, daily range): BP systolic 112–140; BP diastolic 56–70; PULSE 74–88; RESP 16–18; TEMP 96.7–99.4; O2SAT 93–97
[2016-12-28] MEDS: NIFEdipine 20 MG CAP PO SCH ×3 (05:34→22:07)
[2016-12-28 05:49] LABS: HEMATOCRIT 25.8 % (39.0-51.0); MEAN CORPUSCULAR HGB CONC 34.4 % (32.0-36.0); PLATELET COUNT 164 TH/MM3 (150-450); RED CELL DISTRIBUTION WIDTH 14.8 % (11.6-17.2); REVIEW FLAG FINAL; WHITE BLOOD COUNT 8.1 TH/MM3 (4.0-11.0)
[2016-12-28 06:26] LABS: BICARBONATE 32.6 MEQ/L (21.0-32.0); MAGNESIUM 1.2 MG/DL (1.5-2.5); POTASSIUM 3.7 MEQ/L (3.5-5.1)
[2016-12-28] MEDS: METOPROLOL TARTRATE 50 MG TAB PO SCH ×2 (08:50→22:07)
[2016-12-28] MEDS: DOCUSATE SODIUM 50 MG/SENNA 8.6 MG TAB PO SCH ×2 (08:50→22:08)
[2016-12-28] MEDS: LISINOPRIL 20 MG TAB PO SCH (08:50)
[2016-12-28] MEDS: FUROSEMIDE 20 MG/2 ML VIAL IV PUSH SCH (08:50)
[2016-12-28] MEDS: NICOTINE 14 MG/24 HR PATCH TD SCH (08:50)
[2016-12-28] MEDS: FAMOTIDINE 20 MG TAB PO SCH ×2 (08:51→22:09)
[2016-12-28] MEDS: POTASSIUM CHLORIDE 20 MEQ CONTROLLED RELEASE TAB PO SCH (08:51)
[2016-12-28] MEDS: GABAPENTIN 400 MG CAP PO SCH ×3 (08:51→18:14)
[2016-12-28] MEDS: SODIUM CHLORIDE 0.9% FLUSH 5 ML FLUSH IVF SCH ×2 (08:51→22:08)
[2016-12-28] MEDS: CALCIUM CARBONATE 500 MG CHEWABLE TAB CHEW SCH ×2 (09:00→22:08)
[2016-12-28] MEDS: LACTULOSE SYRUP 20 GM/30 ML CUP PO SCH (09:00)
[2016-12-28] MEDS: ENOXAPARIN SODIUM 40 MG/0.4 ML SYRINGE SQ SCH (11:00)
--- NOTE | 2016-12-28 11:31 | HHI.PR ---
Subjective Remarks Patient appears in nad. Pain is controlled by meds. Says she has some blurry vision. No n/v/d/c. Some sob, satign well on 2L NC. has chest lynn with cough and deep insiration. No fever or chills. No new deficit. Objective Vitals Vital Signs Date Time Temp Pulse Resp B/P Pulse Ox O2 Delivery O2 Flow Rate FiO2 12/28/16 09:22 95 Nasal Cannula 2.00 12/28/16 08:45 Nasal Cannula 2.00 12/28/16 08:00 96.7 86 18 130/61 95 12/28/16 04:00 97.5 88 17 134/63 93 12/28/16 04:00 Nasal Cannula 2.00 12/28/16 00:00 97.0 74 16 112/56 93 12/28/16 00:00 Nasal Cannula 2.00 12/27/16 22:27 96 Nasal Cannula 2.00 12/27/16 20:00 98.0 89 16 137/65 93 12/27/16 20:00 Nasal Cannula 2.00 12/27/16 16:00 96.5 82 16 124/78 92 12/27/16 13:30 94 Nasal Cannula 2.00 12/27/16 12:00 97.2 79 18 133/64 92 I/O 12/27/16 12/27/16 12/27/16 12/28/16 12/28/16 12/28/16 07:00 15:00 23:00 07:00 15:00 23:00 Intake Total 960 ml 240 ml 240 ml Output Total 3350 ml 500 ml 650 ml Balance -2390 ml -260 ml -410 ml Intake Oral 960 ml 240 ml 240 ml Output Urine Total 3350 ml 500 ml 650 ml # Bowel Movements 0 0 0 Result Diagram: 12/28/16 0540 12/28/16 0540 Imaging Last Impressions Liver Ultrasound 12/27/16 0000 Signed Impressions: Service Date/Time: Tuesday, December 27, 2016 20:18 - CONCLUSION: 1. Small bilateral pleural effusions. 2. Heterogeneous pancreatic echotexture with minimal prominence of the pancreatic duct. 3. Otherwise negative. Alexis Bustillo MD Lower Extremity Ultrasound 12/23/16 0000 Signed Impressions: Service Date/Time: December 14:28 - CONCLUSION: Normal examination. Flako Salguero MD Pelvis X-Ray 12/22/16 0000 Signed Impressions: Service Date/Time: December 21:38 - CONCLUSION: No appreciable change. Truman Hussein MD Head CT 12/22/16 0000 Signed Impressions: Service Date/Time: Thursday, December 22, 2016 01:37 - CONCLUSION: 1. No acute intracranial abnormalities. No significant change from November 25. Zachery Aquino MD Chest X-Ray 12/22/16 0000 Signed Impressions: Service Date/Time: Thursday, December 22, 2016 09:01 - CONCLUSION: 1. Support apparatus in good position. 2. Improvement with minimal air space disease remaining in the left base. Ralph Garcias MD FACR CT Angiography 12/22/16 0000 Signed Impressions: Service Date/Time: Thursday, December 22, 2016 16:20 - CONCLUSION: 1. There are no central pulmonary emboli identified. 2. Small bilateral pleural effusions that do not appear to be that complicated. 3. Patchy air-space disease in both lungs. Ralph Garcias MD FACR Brain MRI 12/22/16 0000 Signed Impressions: Service Date/Time: Thursday, December 22, 2016 15:53 - CONCLUSION: No acute disease. Drake Corona MD Shoulder X-Ray 12/13/16 1203 Signed Impressions: Service Date/Time: Tuesday, December 13, 2016 13:51 - CONCLUSION: Rib fractures with a small pleural effusion on the left. There is no evidence of shoulder fracture. Ralph Garcias MD FACR Chest CT 12/03/16 0000 Signed Impressions: Service Date/Time: Saturday, December 03, 2016 21:59 - CONCLUSION: 1. Left chest tube is present with the tip of the chest tube mostly above loculated air and fluid in the left pleural space. Cannot exclude a left-sided empyema. Patchy bronchopneumonia also suspected, right greater than left. Zachery Aquino MD Chest Tube Insertion 11/30/16 0000 Signed Impressions: Service Date/Time: Wednesday, November 30, 2016 09:48 - CONCLUSION: Uncomplicated chest tube placement as above. Drake Corona MD Cervical Spine CT 11/25/161950 Signed Impressions: Service Date/Time: November 20:06 - CONCLUSION: 1. No fracture or subluxation of the cervical spine. 2. Degenerative changes with a chronic appearing disc osteophyte complex and uncovertebral/facet osteoarthritis causing severe spinal and bilateral foraminal stenosis at C6-C7. 3. Small, age-indeterminate posterior disc protrusion at C7/T1 causing mild spinal stenosis. Neel Moyer MD Abdomen/Pelvis CT 11/25/161950 Signed Impressions: Service Date/Time: November 20:10 - CONCLUSION: 1. No evidence of acute visceral or injury. 2. Fractures of the left body and ala of the sacrum with mildly displaced fracturing in the region of the left S2/S3 foramen. 3. Bilateral superior and inferior pubic rami fractures and a nondisplaced fracture of the left acetabulum. 4. Small presacral and left iliopsoas hematomas. I don't see active bleeding. Neel Moyer MD Thoracic Spine CT 11/25/16 0000 Signed Impressions: Service Date/Time: November 20:10 - CONCLUSION: Left T12 transverse process and facet fracture, minimally displaced. Multiple left posterior rib fractures and placed refer to the chest CT report. Thoracic vertebral bodies are intact. No subluxations. Neel Moyer MD Lumbar Spine CT 11/25/16 0000 Signed Impressions: Service Date/Time: November 20:10 - CONCLUSION: 1. Minimally to mildly displaced left transverse process fractures of L1-L4. 2. Multilevel degenerative changes as above. Large right paracentral disc fragment at L4/L5, probably nonacute. Neel Moyer MD Objective Remarks GENERAL: Patient is awake in no acute distress. HEENT: NC, AT. CARDIOVASCULAR: Normal rate and regular rhythm without murmurs, gallops, or rubs. RESPIRATORY: Diminished breath bilaterally. Scattered rhonchi. Dressing on the left chest appears intact. GASTROINTESTINAL: Abdomen soft, non-tender, non-distended. Normal active bowel sounds MUSCULOSKELETAL: Trace edema in the right lower extremity, 1+ edema in the left lower extremity. NEURO: Alert and oriented. Moves all ext x4. PSYCH: Mildly agitated. A/P Problem List: (1) Multiple rib fractures ICD Code: S22.49XA Status: Acute (2) Lung contusion ICD Code: S27.329A Status: Acute (3) Fall from ladder ICD Code: W11.XXXA Status: Acute (4) Traumatic pneumothorax ICD Code: S27.0XXA Status: Acute (5) Pelvic fracture ICD Code: S32.9XXA Status: Acute (6) HTN (hypertension) ICD Code: I10 Status: Acute (7) EtOH dependence ICD Code: F10.20 Status: Acute Assessment and Plan 58-year-old gentleman reportedly fell 20 feet off from a tree onto his back without loss of consciousness. He was brought in as a trauma alert. Patient arrived alert with mild confusion, his [place] Coma Scale was 14 complaining of back pain and left chest pain. Patient had multiple left-sided rib fractures with hemopneumothorax. Patient also had multiple pelvic fractures with sacral fracture nondisplaced acetabular fracture. Initially managed in critical care, improved clinically and was transferred to medical-surgical floor. The pt then had altered mental status and was transferred to the ICU and intubated. Antibiotics were adjusted, he was evaluated by neurology, he was extubated and is now back on the floor and doing well. Metabolic encephalopathy The pt was transferred to the ICU and intubated. He has been extubated and is mentally alert. Head CT was negative for intracranial hemorrhage. MRI brain negative for any ischemia or acute abnormality. EEG with no evidence of seizure activity, nonspecific encephalopathy. Neuro consult appreciated. Ammonia level normal. Possible delirium secondary to sepsis. Improved. He does endorse difficulty swallowing. He was evaluated by speech therapy. - neuro checks. - PT/ OT. - continue antibiotics. Pneumonia/ Left lung empyema S/p VATS, thoracotomy and decortication with evacuation of left empyema . S/P Diflucan IV, Zosyn and Vancomycin. Chest tube removed. - antibiotics per infectious disease. - Pain control with a bowel regimen. - Nebulizer treatments scheduled. - Monitor respiratory status, continue Acapella. - PT/OT. EtOH abuse, dependence S/P CIWA protocol. Patient went through DTs. Patient was counseled about complete cessation. He still has some encephalopathy. Unclear what his baseline is. - Minimize sedating medications. - cessation resources upon discharge. Respiratory failure Chest x-ray consistent with pulmonary edema. Echo with normal EF. CT chest negative for PE, showed small bilateral pleural effusions and minimal airspace disease. Intubated for altered mental status, successfully extubated. - continue IV Lasix. Improving. - Monitor I/O's. Keep Guillaume in for now. - oxygen and nebs as needed. - incentive spirometry. Elevated LFTs AST and alkaline phosphatase have been elevated. - Check liver ultrasound. - Hepatitis profile. Macrocytic anemia Secondary to EtOH dependence. Hgb has been decreasing. Consistent with anemia of chronic disease. Improved 12/26. - Thiamine, folate. - check Hemoccult. Status post fall Sustained multiple rib fractures, pubic rib fractures, pelvic fractures with sacral fracture nondisplaced acetabular fracture. - Orthopedic following patient. Weightbearing status was ordered. Recommended toe-touch weightbearing on the left leg. - Pain management with a bowel regimen. - PT/OT. HTN Relatively well controlled 12/27. - continue Lopressor 50 mg twice a day and lisinopril 20 mg daily. No improvement with Amlodipine. Better with Nifedipine Q8Hrs. - clonidine as needed and Vasotec when necessary. Prophylaxis: Lovenox, SCDs. Discharge Planning DC pending clinical improvement and clearance from consultants. CM consult for DC plan. Problem Qualifiers (1) Multiple rib fractures: Qualified Code: S22.42XA - Closed fracture of multiple ribs of left side, initial encounter (2) Lung contusion: Qualified Code: S27.321A - Contusion of left lung, initial encounter (3) Fall from ladder: Qualified Code: W11.XXXA - Fall from ladder, initial encounter (4) Traumatic pneumothorax: Qualified Code: S27.0XXA - Traumatic pneumothorax, initial encounter (5) Pelvic fracture: Qualified Code: S32.810A - Multiple closed fractures of pelvis with stable disruption of pelvic [place], initial encounter (6) EtOH dependence: Renee Rdz MD Dec 28, 2016 11:31
[2016-12-28] MEDS: FOLIC ACID 1 MG TAB PO SCH (11:46)
[2016-12-28] MEDS: MAGNESIUM OXIDE 400 MG TAB PO SCH ×2 (11:46→22:12)
[2016-12-28] MEDS: ERTAPENEM INJ 1,000 MG in SODIUM CHLORIDE 0.9% INJ 100 ML IV SCH (16:24)
[2016-12-28] MEDS ORDERED: ENALAPRILAT 2.5 MG/2 ML VIAL IV PUSH PRN (16:45)
[2016-12-28] MEDS ORDERED: hydrALAZINE HCL 20 MG/ML VIAL IV PUSH PRN (16:45)
--- NOTE | 2016-12-28 20:13 | HHI.IDPN ---
Subjective Subjective Remarks is a 61 y/o CM who was admitted as a trauma alert after he fell off a ladder ~ 20 feet [place] lights. He sustained multiple left-sided rib fractures with hemopneumothorax. He underwent placement of Chest tube and eventually this was not draining much. Concern for empyema lead to a left side VATS and placement of new CTs x 2. Cultures from VATS are pending at this time and no growth so far. He also was seen by ortho for multiple pelvic fractures including sacral fracture and nondisplaced acetabular fracture. Throughout his ICU stay patient has had fever on 1 day of 101 on which lead to VATS. Patient had anaerobic organism growing in empyema fluid. This was sent to [place] for identification. Patient was readmitted to ICU due to AMS, ? new aspiration pneumonia. ID is reconsulted for evaluation and Mment of Empyema and new aspiration pneumonia. 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 Patient now on room air. No chest tubes in place. Overnight events reviewed Sitting on side of bed. Extremely weak. PT needs maximum assistance. UO ok. No fever No rash No diarrhea. Antibiotics Ertapenem IV Lines Line sites with no evidence of infection. Past Medical History Reviewed. Allergies: Coded Allergies: Penicillin (Verified Allergy, Unknown, Hives, 12/06/16) Pt reports hives but tolerated 2 doses of Zosyn IV on 12/05/16. Objective . Vital Signs Date Time Temp Pulse Resp B/P Pulse Ox O2 Delivery O2 Flow Rate FiO2 12/28/16 16:00 97.8 86 17 120/58 12/28/16 12:00 97.2 83 18 140/70 97 12/28/16 09:22 95 Nasal Cannula 2.00 12/28/16 08:45 Nasal Cannula 2.00 12/28/16 08:00 96.7 86 18 130/61 95 12/28/16 04:00 97.5 88 17 134/63 93 12/28/16 04:00 Nasal Cannula 2.00 12/28/16 00:00 97.0 74 16 112/56 93 12/28/16 00:00 Nasal Cannula 2.00 12/27/16 22:27 96 Nasal Cannula 2.00 12/27/16 12/27/16 12/28/16 15:00 23:00 07:00 Intake Total 960 ml 240 ml 240 ml Output Total 3350 ml 500 ml 650 ml Balance -2390 ml -260 ml -410 ml Intake Oral 960 ml 240 ml 240 ml Output Urine Total 3350 ml 500 ml 650 ml # Bowel Movements 0 0 0 . Laboratory Tests Test 12/28/16 05:40 White Blood Count 8.1 TH/MM3 Red Blood Count 2.60 MIL/MM3 Hemoglobin 8.9 GM/DL Hematocrit 25.8 % Mean Corpuscular Volume 99.0 FL Mean Corpuscular Hemoglobin 34.0 PG Mean Corpuscular Hemoglobin 34.4 % Concent Red Cell Distribution Width 14.8 % Platelet Count 164 TH/MM3 Mean Platelet Volume 7.5 FL Laboratory Tests Test 12/28/16 05:40 Sodium Level 139 MEQ/L Potassium Level 3.7 MEQ/L Chloride Level 99 MEQ/L Carbon Dioxide Level 32.6 MEQ/L Anion Gap 7 MEQ/L Blood Urea Nitrogen 8 MG/DL Creatinine 0.38 MG/DL Estimat Glomerular Filtration 231 ML/MIN Rate Random Glucose 115 MG/DL Calcium Level 7.6 MG/DL Magnesium Level 1.2 MG/DL Imaging Last Impressions Chest X-Ray 12/07/16 0600 Signed Impressions: Service Date/Time: Wednesday, December 07, 2016 04:00 - CONCLUSION: 1. Patchy alveolar disease characteristic of edema or pneumonia. There has been no significant change when compared to the prior exam. 2. There is no evidence of pneumothorax. Mario Owen MD Chest CT 12/03/16 0000 Signed Impressions: Service Date/Time: Saturday, December 03, 2016 21:59 - CONCLUSION: 1. Left chest tube is present with the tip of the chest tube mostly above loculated air and fluid in the left pleural space. Cannot exclude a left-sided empyema. Patchy bronchopneumonia also suspected, right greater than left. Zachery Aquino MD Pelvis X-Ray 11/30/16 0000 Signed Impressions: Service Date/Time: Wednesday, November 30, 2016 10:32 - CONCLUSION: 1. Bilateral pubic rami fractures. 2. Apparent nondisplaced fracture through the left sacrum. Jovan Chu MD Chest Tube Insertion 11/30/16 0000 Signed Impressions: Service Date/Time: Wednesday, November 30, 2016 09:48 - CONCLUSION: Uncomplicated chest tube placement as above. Drake Corona MD Head CT 11/25/161950 Signed Impressions: Service Date/Time: November 20:06 - CONCLUSION: Motion degraded study without convincing evidence of acute intracranial hemorrhage. Followup noncontrasted head CT suggested in 24 hours. Neel Moyer MD Cervical Spine CT 11/25/161950 Signed Impressions: Service Date/Time: November 20:06 - CONCLUSION: 1. No fracture or subluxation of the cervical spine. 2. Degenerative changes with a chronic appearing disc osteophyte complex and uncovertebral/facet osteoarthritis causing severe spinal and bilateral foraminal stenosis at C6-C7. 3. Small, age-indeterminate posterior disc protrusion at C7/T1 causing mild spinal stenosis. Neel Moyer MD Abdomen/Pelvis CT 11/25/161950 Signed Impressions: Service Date/Time: November 20:10 - CONCLUSION: 1. No evidence of acute visceral or injury. 2. Fractures of the left body and ala of the sacrum with mildly displaced fracturing in the region of the left S2/S3 foramen. 3. Bilateral superior and inferior pubic rami fractures and a nondisplaced fracture of the left acetabulum. 4. Small presacral and left iliopsoas hematomas. I don't see active bleeding. Neel Moyer MD Thoracic Spine CT 11/25/16 0000 Signed Impressions: Service Date/Time: November 20:10 - CONCLUSION: Left T12 transverse process and facet fracture, minimally displaced. Multiple left posterior rib fractures and placed refer to the chest CT report. Thoracic vertebral bodies are intact. No subluxations. Neel Moyer MD Lumbar Spine CT 11/25/16 0000 Signed Impressions: Service Date/Time: November 20:10 - CONCLUSION: 1. Minimally to mildly displaced left transverse process fractures of L1-L4. 2. Multilevel degenerative changes as above. Large right paracentral disc fragment at L4/L5, probably nonacute. Neel Moyer MD Physical Exam GENERAL: This is a well-nourished, well-developed patient, in no apparent distress. SKIN: Multiple bruising and ecchymosis noted. HEAD: Atraumatic. Normocephalic. No temporal or scalp tenderness. EYES: Pupils equal round and reactive. Extraocular motions intact. No scleral icterus. No injection or drainage. ENT: Nose without bleeding, purulent drainage or septal hematoma. Throat without erythema, tonsillar hypertrophy or exudate. Uvula midline. Airway patent. NECK: Trachea midline. Supple, nontender, no meningeal signs. CARDIOVASCULAR: HS audible no murmur appreciated. RESPIRATORY: Clear to auscultation. Breath sounds equal bilaterally. GASTROINTESTINAL: Abdomen soft, non-tender, nondistended. MUSCULOSKELETAL: Extremities without clubbing, cyanosis, or edema. No joint tenderness, effusion, or edema noted. No calf tenderness. Negative Homans sign bilaterally. NEUROLOGICAL: Awake and alert. Grossly non focal Psych: cooperative IV line sites with no e/o infection/. Assessment & Plan Remarks Hemothorax with organized hematoma. Empyema. Anaerobic gram positive organism. Empyema. Multiple left side rub fractures s/p VATS. Sacral fracture with non displaced acetabular fracture. HTN h/o multiple spine surgeries with hardware in place Recs: Continue Ertapenem IV (ASP: covers Finegoldia magna in empyema intra op fluid, E.coli resistant to levaquin, PCN allergic) Will need 4 weeks of IV Ertapenem to treat the Finegoldia Empyema, organism identified today. May need follow up imaging. Follow cultures. Follow clinically. d.w case management will need rehab. Once place finalized please call me so I can put in DC orders for antibiotics. Will follow prn in the interim. Jenelle Boyd MD Dec 28, 2016 20:13
[2016-12-28] MEDS: REMOVE OLD NICODERM (NICOTINE) PATCH TD SCH (21:00)
[2016-12-28] MEDS: MELATONIN 5 MG TAB PO PRN (22:07)
[2016-12-29] VITALS (8 sets, daily range): BP systolic 107–140; BP diastolic 55–70; PULSE 72–84; RESP 16–18; TEMP 97–98.4; O2SAT 94–99
[2016-12-29] MEDS: NIFEdipine 20 MG CAP PO SCH ×3 (04:05→21:52)
[2016-12-29 06:54] LABS: AUTOMATED NEUTROPHIL # 5.2 TH/MM3 (1.8-7.7); BASOPHIL # 0.1 TH/MM3 (0-0.2); BASOPHIL % 1.4 % (0.0-2.0); EOSINOPHIL # 0.2 TH/MM3 (0-0.4); EOSINOPHIL % 2.5 % (0.0-4.0); HEMATOCRIT 25.2 % (39.0-51.0); HEMO FLAGS DIFF FINAL; LYMPH % 15.5 % (9.0-44.0); LYMPHOCYTE # 1.2 TH/MM3 (1.0-4.8); MEAN CORPUSCULAR HEMOGLOBIN 33.3 PG (27.0-34.0); MONO % 13.8 % (0.0-8.0); NEUT % 66.8 % (16.0-70.0); PLATELET COUNT 157 TH/MM3 (150-450); RED BLOOD COUNT 2.57 MIL/MM3 (4.50-5.90); WHITE BLOOD COUNT 7.7 TH/MM3 (4.0-11.0)
--- NOTE | 2016-12-29 07:15 | PD.ORT.PN ---
Subjective Subjective Remarks Alert and oriented to person place and time. Pain controlled Objective Vitals Vital Signs Date Time Temp Pulse Resp B/P Pulse Ox O2 Delivery O2 Flow Rate FiO2 12/29/16 00:00 97.0 72 16 128/63 94 12/28/16 22:00 94 Nasal Cannula 2.00 12/28/16 22:00 75 12/28/16 20:19 94 Nasal Cannula 2.00 12/28/16 20:00 99.4 84 17 140/62 12/28/16 16:00 97.8 86 17 120/58 12/28/16 12:00 97.2 83 18 140/70 97 12/28/16 09:22 95 Nasal Cannula 2.00 12/28/16 08:45 Nasal Cannula 2.00 12/28/16 08:00 96.7 86 18 130/61 95 I/O 12/28/16 12/28/16 12/28/16 12/29/16 12/29/16 12/29/16 07:00 15:00 23:00 07:00 15:00 23:00 Intake Total 240 ml 960 ml Output Total 650 ml 1250 ml Balance -410 ml -290 ml Intake Oral 240 ml 960 ml Output Urine Total 650 ml 1250 ml # Bowel Movements 0 1 Result Diagram: 12/29/16 0635 12/28/16 0540 Imaging Last 24 hours Impressions Chest X-Ray 11/26/16 0000 Signed Impressions: Service Date/Time: Saturday, November 26, 2016 03:32 - CONCLUSION: 1. Left chest tube remains present and there is likely a tiny left apical pneumothorax present. There is stable air along the left chest wall. 2. Stable left lung base airspace opacity representing either atelectasis or consolidation. Neel Mahan MD Pelvis X-Ray 11/25/161950 Signed Impressions: Service Date/Time: November 19:44 - CONCLUSION: Bilateral pubic rami and left sacral fractures. Neel Moyer MD Head CT 11/25/161950 Signed Impressions: Service Date/Time: November 20:06 - CONCLUSION: Motion degraded study without convincing evidence of acute intracranial hemorrhage. Followup noncontrasted head CT suggested in 24 hours. Neel Moyer MD Chest X-Ray 11/25/161950 Signed Impressions: Service Date/Time: November 19:44 - CONCLUSION: Multiple posterior left rib fractures with a left base parenchymal contusion. Neel Moyer MD Chest CT 11/25/161950 Signed Impressions: Service Date/Time: November 20:10 - CONCLUSION: Multiple left rib fractures with moderate left pneumothorax, tiny left hemothorax and probable contusion of the left lower lobe. Neel Moyer MD Cervical Spine CT 11/25/161950 Signed Impressions: Service Date/Time: November 20:06 - CONCLUSION: 1. No fracture or subluxation of the cervical spine. 2. Degenerative changes with a chronic appearing disc osteophyte complex and uncovertebral/facet osteoarthritis causing severe spinal and bilateral foraminal stenosis at C6-C7. 3. Small, age-indeterminate posterior disc protrusion at C7/T1 causing mild spinal stenosis. Neel Moyer MD Abdomen/Pelvis CT 11/25/161950 Signed Impressions: Service Date/Time: November 20:10 - CONCLUSION: 1. No evidence of acute visceral or injury. 2. Fractures of the left body and ala of the sacrum with mildly displaced fracturing in the region of the left S2/S3 foramen. 3. Bilateral superior and inferior pubic rami fractures and a nondisplaced fracture of the left acetabulum. 4. Small presacral and left iliopsoas hematomas. I don't see active bleeding. Neel Moyer MD Objective Remarks Pelvis: slight discomfort with movement of legs. NVI distally Assessment & Plan Assessment and Plan 1) Left Sacral Fxs 2) Bilateral sup/inf rami fxs -nonop -WBAT on RLE -TTWB LLE pain control Lovenox Discharge planningorthopedically cleared if safe placement is available WADE MEMBRENO PA-C Dec 29, 2016 07:15
[2016-12-29 07:23] LABS: BICARBONATE 31.4 MEQ/L (21.0-32.0); MAGNESIUM 1.3 MG/DL (1.5-2.5); POTASSIUM 3.9 MEQ/L (3.5-5.1)
[2016-12-29] MEDS: NICOTINE 14 MG/24 HR PATCH TD SCH (08:01)
[2016-12-29] MEDS: REMOVE OLD NICODERM (NICOTINE) PATCH TD SCH (08:01)
[2016-12-29] MEDS: GABAPENTIN 400 MG CAP PO SCH ×3 (08:02→20:34)
[2016-12-29] MEDS: FUROSEMIDE 20 MG TAB PO SCH (08:02)
[2016-12-29] MEDS: METOPROLOL TARTRATE 50 MG TAB PO SCH ×2 (08:02→20:35)
[2016-12-29] MEDS: FOLIC ACID 1 MG TAB PO SCH (08:02)
[2016-12-29] MEDS: FAMOTIDINE 20 MG TAB PO SCH ×2 (08:02→20:35)
[2016-12-29] MEDS: MAGNESIUM OXIDE 400 MG TAB PO SCH ×2 (08:02→20:35)
[2016-12-29] MEDS: CALCIUM CARBONATE 500 MG CHEWABLE TAB CHEW SCH ×2 (08:02→20:35)
[2016-12-29] MEDS: POTASSIUM CHLORIDE 20 MEQ CONTROLLED RELEASE TAB PO SCH (08:02)
[2016-12-29] MEDS: LISINOPRIL 20 MG TAB PO SCH (08:03)
[2016-12-29] MEDS: DOCUSATE SODIUM 50 MG/SENNA 8.6 MG TAB PO SCH ×2 (08:03→20:34)
[2016-12-29] MEDS: SODIUM CHLORIDE 0.9% FLUSH 5 ML FLUSH IVF SCH ×2 (08:03→20:36)
[2016-12-29] MEDS: LACTULOSE SYRUP 20 GM/30 ML CUP PO SCH (08:03)
--- NOTE | 2016-12-29 09:40 | HHI.PR ---
Subjective Remarks In bed. Says pain is controlled by meds. No n/v/d/c. Per nurse patient had a bag of unknown pill sin his room. Patient can't ambulate. Patient doesn't know anything about this pills. Patient denies having any sob, n/v/d/c. No fever or chills. no cough. Objective Vitals Vital Signs Date Time Temp Pulse Resp B/P Pulse Ox O2 Delivery O2 Flow Rate FiO2 12/29/16 09:09 18 12/29/16 08:50 96 Nasal Cannula 2.00 12/29/16 04:00 98.4 74 17 133/66 96 12/29/16 00:00 97.0 72 16 128/63 94 12/28/16 22:00 94 Nasal Cannula 2.00 12/28/16 22:00 75 12/28/16 20:19 94 Nasal Cannula 2.00 12/28/16 20:00 99.4 84 17 140/62 12/28/16 16:00 97.8 86 17 120/58 12/28/16 12:00 97.2 83 18 140/70 97 I/O 12/28/16 12/28/16 12/28/16 12/29/16 12/29/16 12/29/16 07:00 15:00 23:00 07:00 15:00 23:00 Intake Total 240 ml 960 ml 240 ml 240 ml Output Total 650 ml 1250 ml 500 ml 650 ml Balance -410 ml -290 ml -260 ml -410 ml Intake Oral 240 ml 960 ml 240 ml 240 ml Output Urine Total 650 ml 1250 ml 500 ml 650 ml # Bowel Movements 0 1 0 0 Result Diagram: 12/29/16 0635 12/29/16 0635 Imaging Last Impressions Liver Ultrasound 12/27/16 0000 Signed Impressions: Service Date/Time: Tuesday, December 27, 2016 20:18 - CONCLUSION: 1. Small bilateral pleural effusions. 2. Heterogeneous pancreatic echotexture with minimal prominence of the pancreatic duct. 3. Otherwise negative. Alexis Bustillo MD Lower Extremity Ultrasound 12/23/16 0000 Signed Impressions: Service Date/Time: December 14:28 - CONCLUSION: Normal examination. Flako Salguero MD Pelvis X-Ray 12/22/16 0000 Signed Impressions: Service Date/Time: December 21:38 - CONCLUSION: No appreciable change. Truman Hussein MD Head CT 12/22/16 0000 Signed Impressions: Service Date/Time: Thursday, December 22, 2016 01:37 - CONCLUSION: 1. No acute intracranial abnormalities. No significant change from November 25. Zachery Aquino MD Chest X-Ray 12/22/16 0000 Signed Impressions: Service Date/Time: Thursday, December 22, 2016 09:01 - CONCLUSION: 1. Support apparatus in good position. 2. Improvement with minimal air space disease remaining in the left base. Ralph Garcias MD FACR CT Angiography 12/22/16 0000 Signed Impressions: Service Date/Time: Thursday, December 22, 2016 16:20 - CONCLUSION: 1. There are no central pulmonary emboli identified. 2. Small bilateral pleural effusions that do not appear to be that complicated. 3. Patchy air-space disease in both lungs. Ralph Garcias MD FACR Brain MRI 12/22/16 0000 Signed Impressions: Service Date/Time: Thursday, December 22, 2016 15:53 - CONCLUSION: No acute disease. Drake Corona MD Shoulder X-Ray 12/13/16 1203 Signed Impressions: Service Date/Time: Tuesday, December 13, 2016 13:51 - CONCLUSION: Rib fractures with a small pleural effusion on the left. There is no evidence of shoulder fracture. Ralhp Garcias MD FACR Chest CT 12/03/16 0000 Signed Impressions: Service Date/Time: Saturday, December 03, 2016 21:59 - CONCLUSION: 1. Left chest tube is present with the tip of the chest tube mostly above loculated air and fluid in the left pleural space. Cannot exclude a left-sided empyema. Patchy bronchopneumonia also suspected, right greater than left. Zachery Aquino MD Chest Tube Insertion 11/30/16 0000 Signed Impressions: Service Date/Time: Wednesday, November 30, 2016 09:48 - CONCLUSION: Uncomplicated chest tube placement as above. Drake Corona MD Cervical Spine CT 11/25/161950 Signed Impressions: Service Date/Time: November 20:06 - CONCLUSION: 1. No fracture or subluxation of the cervical spine. 2. Degenerative changes with a chronic appearing disc osteophyte complex and uncovertebral/facet osteoarthritis causing severe spinal and bilateral foraminal stenosis at C6-C7. 3. Small, age-indeterminate posterior disc protrusion at C7/T1 causing mild spinal stenosis. Neel Moyer MD Abdomen/Pelvis CT 11/25/16 195 Signed Impressions: Service Date/Time: November 20:10 - CONCLUSION: 1. No evidence of acute visceral or injury. 2. Fractures of the left body and ala of the sacrum with mildly displaced fracturing in the region of the left S2/S3 foramen. 3. Bilateral superior and inferior pubic rami fractures and a nondisplaced fracture of the left acetabulum. 4. Small presacral and left iliopsoas hematomas. I don't see active bleeding. Neel Moyer MD Thoracic Spine CT 11/25/16 0000 Signed Impressions: Service Date/Time: November 20:10 - CONCLUSION: Left T12 transverse process and facet fracture, minimally displaced. Multiple left posterior rib fractures and placed refer to the chest CT report. Thoracic vertebral bodies are intact. No subluxations. Neel Moyer MD Lumbar Spine CT 11/25/16 0000 Signed Impressions: Service Date/Time: November 20:10 - CONCLUSION: 1. Minimally to mildly displaced left transverse process fractures of L1-L4. 2. Multilevel degenerative changes as above. Large right paracentral disc fragment at L4/L5, probably nonacute. Neel Moyer MD Objective Remarks GENERAL: Patient is awake in no acute distress. HEENT: NC, AT. CARDIOVASCULAR: Normal rate and regular rhythm without murmurs, gallops, or rubs. RESPIRATORY: Diminished breath bilaterally. Scattered rhonchi. Dressing on the left chest appears intact. GASTROINTESTINAL: Abdomen soft, non-tender, non-distended. Normal active bowel sounds MUSCULOSKELETAL: Trace edema in the right lower extremity, 1+ edema in the left lower extremity. NEURO: Alert and oriented. Moves all ext x4. PSYCH: Mildly agitated. A/P Problem List: (1) Multiple rib fractures ICD Code: S22.49XA Status: Acute (2) Lung contusion ICD Code: S27.329A Status: Acute (3) Fall from ladder ICD Code: W11.XXXA Status: Acute (4) Traumatic pneumothorax ICD Code: S27.0XXA Status: Acute (5) Pelvic fracture ICD Code: S32.9XXA Status: Acute (6) HTN (hypertension) ICD Code: I10 Status: Acute (7) EtOH dependence ICD Code: F10.20 Status: Acute Assessment and Plan 58-year-old gentleman reportedly fell 20 feet off from a tree onto his back without loss of consciousness. He was brought in as a trauma alert. Patient arrived alert with mild confusion, his [place] Coma Scale was 14 complaining of back pain and left chest pain. Patient had multiple left-sided rib fractures with hemopneumothorax. Patient also had multiple pelvic fractures with sacral fracture nondisplaced acetabular fracture. Initially managed in critical care, improved clinically and was transferred to medical-surgical floor. The pt then had altered mental status and was transferred to the ICU and intubated. Antibiotics were adjusted, he was evaluated by neurology, he was extubated and is now back on the floor and doing well. Metabolic encephalopathy. Resolved. The pt was transferred to the ICU and intubated. He has been extubated and is mentally alert. Head CT was negative for intracranial hemorrhage. MRI brain negative for any ischemia or acute abnormality. EEG with no evidence of seizure activity, nonspecific encephalopathy. Neuro consult appreciated. Ammonia level normal. Possible delirium secondary to sepsis. Improved. He does endorse difficulty swallowing. He was evaluated by speech therapy. - neuro checks. - PT/ OT. - continue antibiotics. Pneumonia/ Left lung empyema. S/p VATS, thoracotomy and decortication with evacuation of left empyema . S/P Diflucan IV, Zosyn and Vancomycin. Chest tube removed. - antibiotics per infectious disease - Pain control with a bowel regimen. - Nebulizer treatments scheduled. - Monitor respiratory status, continue Acapella. - PT/OT. EtOH abuse, dependence S/P [facility] protocol. Patient went through DTs. Patient was counseled about complete cessation. He still has some encephalopathy. Unclear what his baseline is. - Minimize sedating medications. - cessation resources upon discharge. Respiratory failure Chest x-ray consistent with pulmonary edema. Echo with normal EF. CT chest negative for PE, showed small bilateral pleural effusions and minimal airspace disease. Intubated for altered mental status, successfully extubated. - continue Lasix, 20 mg po. Improving. - Monitor I/O's. Keep Guillaume in for now. - oxygen and nebs as needed. - incentive spirometry. Elevated LFTs AST and alkaline phosphatase have been elevated. - Check liver ultrasound. - Hepatitis profile. Macrocytic anemia Secondary to EtOH dependence. Hgb has been decreasing. Consistent with anemia of chronic disease. Improved 12/26. - Thiamine, folate. - check Hemoccult. Status post fall Sustained multiple rib fractures, pubic rib fractures, pelvic fractures with sacral fracture nondisplaced acetabular fracture. - Orthopedic following patient. Weightbearing status was ordered. Recommended toe-touch weightbearing on the left leg. - Pain management with a bowel regimen. - PT/OT. HTN Relatively well controlled 12/27. - continue Lopressor 50 mg twice a day and lisinopril 20 mg daily. No improvement with Amlodipine. Better with Nifedipine Q8Hrs. - clonidine as needed and Vasotec when necessary. Prophylaxis: Lovenox, SCDs. Discharge Planning DC pending clinical improvement and clearance from consultants. CM consult for DC plan. Difficult discharge patient is non ambulatory. CM following for DC plan. Plan to transfer to hospital. Discussed with Dr Yeager hospitalist in and accepts the patient. Problem Qualifiers (1) Multiple rib fractures: Qualified Code: S22.42XA - Closed fracture of multiple ribs of left side, initial encounter (2) Lung contusion: Qualified Code: S27.321A - Contusion of left lung, initial encounter (3) Fall from ladder: Qualified Code: W11.XXXA - Fall from ladder, initial encounter (4) Traumatic pneumothorax: Qualified Code: S27.0XXA - Traumatic pneumothorax, initial encounter (5) Pelvic fracture: Qualified Code: S32.810A - Multiple closed fractures of pelvis with stable disruption of pelvic [place], initial encounter (6) EtOH dependence: Renee Rdz MD Dec 29, 2016 09:40
[2016-12-29] MEDS: ENOXAPARIN SODIUM 40 MG/0.4 ML SYRINGE SQ SCH (11:00)
[2016-12-29] MEDS: ERTAPENEM INJ 1,000 MG in SODIUM CHLORIDE 0.9% INJ 100 ML IV SCH (16:01)
[2016-12-29] MEDS: MELATONIN 5 MG TAB PO PRN (21:53)
[2016-12-30 04:00] VITALS: BP 134/68; PULSE 82; RESP 16; TEMP 98.3; O2SAT 96
[2016-12-30] MEDS: NIFEdipine 20 MG CAP PO SCH ×3 (05:44→22:07)
[2016-12-30 08:00] VITALS: BP 136/63; PULSE 76; RESP 20; TEMP 97.1; O2SAT 90
[2016-12-30] MEDS: SODIUM CHLORIDE 0.9% FLUSH 5 ML FLUSH IVF SCH ×2 (09:00→22:08)
[2016-12-30] MEDS: LACTULOSE SYRUP 20 GM/30 ML CUP PO SCH (09:00)
[2016-12-30] MEDS: FUROSEMIDE 20 MG TAB PO SCH (10:20)
[2016-12-30] MEDS: DOCUSATE SODIUM 50 MG/SENNA 8.6 MG TAB PO SCH ×2 (10:20→21:02)
[2016-12-30] MEDS: FOLIC ACID 1 MG TAB PO SCH (10:20)
[2016-12-30] MEDS: MAGNESIUM OXIDE 400 MG TAB PO SCH ×2 (10:20→21:03)
[2016-12-30] MEDS: METOPROLOL TARTRATE 50 MG TAB PO SCH ×2 (10:21→21:03)
[2016-12-30] MEDS: POTASSIUM CHLORIDE 20 MEQ CONTROLLED RELEASE TAB PO SCH (10:21)
[2016-12-30] MEDS: GABAPENTIN 400 MG CAP PO SCH ×3 (10:21→17:34)
[2016-12-30] MEDS: LISINOPRIL 20 MG TAB PO SCH (10:21)
[2016-12-30] MEDS: FAMOTIDINE 20 MG TAB PO SCH ×2 (10:21→21:02)
[2016-12-30] MEDS: CALCIUM CARBONATE 500 MG CHEWABLE TAB CHEW SCH ×2 (10:21→22:48)
[2016-12-30] MEDS: NICOTINE 14 MG/24 HR PATCH TD SCH (10:21)
[2016-12-30] MEDS: ENOXAPARIN SODIUM 40 MG/0.4 ML SYRINGE SQ SCH (10:22)
--- NOTE | 2016-12-30 10:41 | HHI.PR ---
Subjective Remarks Follow-up for trauma, empyema. Mr. Storm was transferred to [facility] [place] [facility] [place] The patient initially presented to the emergency department on as a trauma alert after falling off a ladder. Patient's GCS was 14 at the time. He had a left hemopneumothorax and chest tube placed. He also had a tiny right pneumothorax. He sustained left T12 fracture, left sided rib fractures,transverse process fractures of L1 through L4, left sacral fractures, L acetabular fx, and bilateral superior and inferior pubic rami fractures. Patient was admitted to the trauma service and evaluated by critical-care. He was then transferred to [facility] floor. Patient has EtOH dependence and CIWA assessments were completed. He developed AMS and code blue was called. Patient had acidosis on ABG and required intubation and was transferred back to critical care. EEG with moderate encephalopathy. Patient was evaluated by neurology and Brain CT and MRI were negative. He was extubated on 12/24. He was found have a empyema of the left lung and was evaluated by infectious disease. The patient is currently stable, on ertapenem for a total of 4 weeks. Per note yesterday the patient had unknown pills in his room which were removed. The nurse spoke with the patient's ex- today who states the patient has an addiction to pills. The patient initially denied any chest pain but then indicates pain pointing to his left ribs. He denies any fevers, chills, shortness of breath and states he only has a little dry cough. Per nurse, the patient was on oxygen prior to arrival here but respiratory therapy evaluated the patient this morning and removed O2 and patient has had good O2 saturation on RA. Objective Vitals Vital Signs Date Time Temp Pulse Resp B/P Pulse Ox O2 Delivery O2 Flow Rate FiO2 12/30/16 08:00 97.1 76 20 136/63 90 12/30/16 08:00 98 12/30/16 04:00 98.3 82 16 134/68 96 12/29/16 21:00 96 12/29/16 20:00 99 Nasal Cannula 2.00 12/29/16 20:00 97.6 84 16 138/70 99 12/29/16 19:38 99 Nasal Cannula 2.00 12/29/16 18:17 97.6 84 16 138/70 99 12/29/16 15:55 98.1 72 16 107/55 12/29/16 15:08 18 I/O 12/29/16 12/29/16 12/29/16 12/30/16 12/30/16 12/30/16 07:00 15:00 23:00 07:00 15:00 23:00 Intake Total 240 ml 1220 ml 700 ml 300 ml Output Total 650 ml 1100 ml 450 ml 700 ml Balance -410 ml 120 ml 250 ml -400 ml Intake Oral 240 ml 1220 ml 700 ml 300 ml Output Urine Total 650 ml 1100 ml 450 ml 700 ml # Bowel Movements 0 0 0 Result Diagram: 12/29/16 0635 12/29/16 0635 Imaging Last Impressions Liver Ultrasound 12/27/16 0000 Signed Impressions: Service Date/Time: Tuesday, December 27, 2016 20:18 - CONCLUSION: 1. Small bilateral pleural effusions. 2. Heterogeneous pancreatic echotexture with minimal prominence of the pancreatic duct. 3. Otherwise negative. Alexis Bustillo MD Lower Extremity Ultrasound 12/23/16 0000 Signed Impressions: Service Date/Time: December 14:28 - CONCLUSION: Normal examination. Flako Salguero MD Pelvis X-Ray 12/22/16 0000 Signed Impressions: Service Date/Time: December 21:38 - CONCLUSION: No appreciable change. Truman Hussein MD Head CT 12/22/16 0000 Signed Impressions: Service Date/Time: Thursday, December 22, 2016 01:37 - CONCLUSION: 1. No acute intracranial abnormalities. No significant change from November 25. Zachery Aquino MD Chest X-Ray 12/22/16 0000 Signed Impressions: Service Date/Time: Thursday, December 22, 2016 09:01 - CONCLUSION: 1. Support apparatus in good position. 2. Improvement with minimal air space disease remaining in the left base. Ralph Garcias MD FACR CT Angiography 12/22/16 0000 Signed Impressions: Service Date/Time: Thursday, December 22, 2016 16:20 - CONCLUSION: 1. There are no central pulmonary emboli identified. 2. Small bilateral pleural effusions that do not appear to be that complicated. 3. Patchy air-space disease in both lungs. Ralph Garcias MD FACR Brain MRI 12/22/16 0000 Signed Impressions: Service Date/Time: Thursday, December 22, 2016 15:53 - CONCLUSION: No acute disease. Drake Corona MD Shoulder X-Ray 12/13/16 1203 Signed Impressions: Service Date/Time: Tuesday, December 13, 2016 13:51 - CONCLUSION: Rib fractures with a small pleural effusion on the left. There is no evidence of shoulder fracture. Ralph Garcias MD FACR Chest CT 12/03/16 0000 Signed Impressions: Service Date/Time: Saturday, December 03, 2016 21:59 - CONCLUSION: 1. Left chest tube is present with the tip of the chest tube mostly above loculated air and fluid in the left pleural space. Cannot exclude a left-sided empyema. Patchy bronchopneumonia also suspected, right greater than left. Zachery Aquino MD Chest Tube Insertion 11/30/16 0000 Signed Impressions: Service Date/Time: Wednesday, November 30, 2016 09:48 - CONCLUSION: Uncomplicated chest tube placement as above. Drake Corona MD Cervical Spine CT 11/25/161950 Signed Impressions: Service Date/Time: November 20:06 - CONCLUSION: 1. No fracture or subluxation of the cervical spine. 2. Degenerative changes with a chronic appearing disc osteophyte complex and uncovertebral/facet osteoarthritis causing severe spinal and bilateral foraminal stenosis at C6-C7. 3. Small, age-indeterminate posterior disc protrusion at C7/T1 causing mild spinal stenosis. Neel Moyer MD Abdomen/Pelvis CT 11/25/161950 Signed Impressions: Service Date/Time: November 20:10 - CONCLUSION: 1. No evidence of acute visceral or injury. 2. Fractures of the left body and ala of the sacrum with mildly displaced fracturing in the region of the left S2/S3 foramen. 3. Bilateral superior and inferior pubic rami fractures and a nondisplaced fracture of the left acetabulum. 4. Small presacral and left iliopsoas hematomas. I don't see active bleeding. Neel Moyer MD Thoracic Spine CT 11/25/16 0000 Signed Impressions: Service Date/Time: November 20:10 - CONCLUSION: Left T12 transverse process and facet fracture, minimally displaced. Multiple left posterior rib fractures and placed refer to the chest CT report. Thoracic vertebral bodies are intact. No subluxations. Neel Moyer MD Lumbar Spine CT 11/25/16 0000 Signed Impressions: Service Date/Time: November 20:10 - CONCLUSION: 1. Minimally to mildly displaced left transverse process fractures of L1-L4. 2. Multilevel degenerative changes as above. Large right paracentral disc fragment at L4/L5, probably nonacute. Neel Moyer MD Objective Remarks GENERAL: Well-developed patient in no apparent distress. EYES: Pupils equal and round. No scleral icterus. No injection or drainage. CARDIOVASCULAR: Regular rate and rhythm. RESPIRATORY: No accessory muscle use. Diminished breath sounds over left anterior chest. Breathes through his mouth. GASTROINTESTINAL: Abdomen soft, non-tender, nondistended. MUSCULOSKELETAL: 2+ TP pulses bilaterally. NEUROLOGICAL: Awake, alert, and oriented. Normal speech. PSYCHIATRIC: Appropriate mood and affect; insight and judgment normal. Procedures Intubation, extubation L sided VATS, multiple L chest tubes Urinary Catheter: No Vascular Central Line Catheter: No A/P Problem List: (1) Fall from ladder ICD Code: W11.XXXA Status: Acute (2) Metabolic encephalopathy ICD Code: G93.41 Status: Resolved (3) Hypercapnic respiratory failure ICD Code: J96.92 Status: Resolved (4) Traumatic pneumothorax ICD Code: S27.0XXA Status: Acute (5) Lung contusion ICD Code: S27.329A Status: Acute (6) Multiple rib fractures ICD Code: S22.49XA Status: Acute (7) Fracture of transverse process of thoracic vertebra ICD Code: S22.009A Status: Acute (8) Lumbar transverse process fracture ICD Code: S32.008A Status: Acute (9) Left acetabular fracture ICD Code: S32.402A Status: Acute (10) Bilateral pubic rami fractures ICD Code: S32.591A Status: Acute (11) Sacral fracture, closed ICD Code: S32.10XA Status: Acute (12) HTN (hypertension) ICD Code: I10 Status: Acute (13) EtOH dependence ICD Code: F10.20 Status: Acute Assessment and Plan 58-year-old gentleman reportedly fell 20 feet off from a tree onto his back without loss of consciousness. He was brought in as a trauma alert. Patient arrived alert with mild confusion complaining of back pain and left chest pain. Patient had multiple left-sided rib fractures with hemopneumothorax. Patient also had multiple pelvic fractures with sacral fracture. Initially managed in critical care, improved clinically and was transferred to medical-surgical floor. The pt then had altered mental status and was transferred to the ICU and intubated. Antibiotics were adjusted, he was evaluated by neurology, he was extubated and is now back on med-surg floor and stable. Status post fall: -Sustained multiple rib fractures, pelvic fractures with sacral fracture, nondisplaced acetabular fracture, thoracic and lumbar transverse process fractures. -Orthopedics cleared patient. Weightbearing as tolerated right lower extremity , toe-touch weightbearing left lower extremity. -Pain management with a bowel regimen. -PT/OT. Metabolic encephalopathy: Resolved. -Head CT was negative for intracranial hemorrhage. -MRI brain negative for any ischemia or acute abnormality. -EEG with no evidence of seizure activity, moderate encephalopathy. Neuro consult appreciated. Ammonia level normal. Possible delirium secondary to sepsis. Improved. He endorsed difficulty swallowing, but was evaluated by speech therapy who recommends regular diet and thin liquids. -PT/ OT. -Continue antibiotics. Pneumonia/ Left lung empyema: -S/p VATS, thoracotomy and decortication with evacuation of left empyema . -S/P Diflucan IV, Zosyn and Vancomycin. Chest tube removed. -Continue Ertapenem IV for 4 weeks. Stop date 01/21. Per ID may need follow up imaging. Call ID when patient is going to be discharged so DC orders for antibiotics can be placed. ID to follow prn. -Pain control with a bowel regimen. -Duoneb/albuterol treatments as needed. -Monitor respiratory status, continue Acapella. -PT/OT. -RT to monitor pulse oximetry. patient was taken off O2 this morning. Respiratory failure: -Chest x-ray consistent with pulmonary edema. Echo with normal EF 55%. CT chest negative for PE, showed small bilateral pleural effusions and minimal airspace disease. Intubated for altered mental status, successfully extubated. -Continue Lasix, 20 mg po. -Monitor I/O's. -Oxygen and nebs as needed. -Incentive spirometry. EtOH abuse/dependence: -S/P CIWA protocol. Patient went through DTs. Patient was counseled about complete cessation. Unclear what his baseline is. -Minimize sedating medications. -Cessation resources upon discharge. -Patient was receiving one beer with meals. Will discontinue as patient has already gone through withdrawal. Alcohol withdrawal precautions. Elevated LFTs -AST and alkaline phosphatase have been elevated. -Liver US showing normal echotexture of the liver without focal lesion no ductal dilatation. There is heterogeneous pancreatic echotexture with minimal prominence of the pancreatic duct and small bilateral pleural effusions but otherwise negative. -Hepatitis C antibody reactive. Macrocytic anemia: -Secondary to EtOH dependence. Hgb has been decreasing. Consistent with anemia of chronic disease. Stable 8.6. Repeat am CBC. - Thiamine, folate. HTN: -Continue Lopressor 50 mg twice a day, Lisinopril 20 mg daily, and Nifedipine 20 mg q8h. -Clonidine and Vasotec as needed. Prophylaxis: Lovenox, SCDs. Nurse later called me informing me the patient has been having diarrhea. Apparently the patient informed her that he has a history of IBS and he stated that the pills that were found in his room yesterday were Imodium. Patient is on antibiotics and is at risk of C. difficile. I will order a C. difficile test. If negative, will start the patient on Imodium. Patient placed on special isolation until results. Problem Qualifiers (1) Fall from ladder: Qualified Code: W11.XXXA - Fall from ladder, initial encounter (2) Hypercapnic respiratory failure: Qualified Code: J96.02 - Acute respiratory failure with hypercapnia (3) Traumatic pneumothorax: Qualified Code: S27.0XXA - Traumatic pneumothorax, initial encounter (4) Lung contusion: Qualified Code: S27.321A - Contusion of left lung, initial encounter (5) Multiple rib fractures: Qualified Code: S22.42XA - Closed fracture of multiple ribs of left side, initial encounter (6) EtOH dependence: Jazzmine Proctor Dec 30, 2016 10:41
[2016-12-30] MEDS: ERTAPENEM INJ 1,000 MG in SODIUM CHLORIDE 0.9% INJ 100 ML IV SCH (17:36)
--- NOTE | 2016-12-30 19:22 | HHI.PR ---
Addendum to Inpatient Note Addendum Reason: Additional Documentation Additional Information Patient transferred to [place] [facility] was not informed of transfer. Continue Ertapenem IV (tentative stop date: 01/25/2017) Weekly CBC with diff, CMP, CRP while on antibiotics to be ordered and followed by hospitalist. If any change in clinical condition or questions please call ID education sales consultant for [facility] [place]. Will sign off please call back if any change in clinical condition. Jenelle Boyd MD Dec 30, 2016 19:22
[2016-12-30 19:39] VITALS: O2SAT 89
[2016-12-30 19:41] VITALS: O2SAT 98
[2016-12-30 20:00] VITALS: BP 115/66; PULSE 70; RESP 16; TEMP 99.8; O2SAT 100
[2016-12-30] MEDS: REMOVE OLD NICODERM (NICOTINE) PATCH TD SCH (21:00)
[2016-12-30] MEDS: MELATONIN 5 MG TAB PO PRN (21:17)
[2016-12-31 07:00] VITALS: O2SAT 98
[2016-12-31 07:46] LABS: AUTOMATED NEUTROPHIL # 6.1 TH/MM3 (1.8-7.7); BASOPHIL # 0.3 TH/MM3 (0-0.2); BASOPHIL % 2.8 % (0.0-2.0); EOSINOPHIL # 0.3 TH/MM3 (0-0.4); EOSINOPHIL % 3.1 % (0.0-4.0); HEMATOCRIT 27.8 % (39.0-51.0); HEMO FLAGS DIFF FINAL; LYMPH % 14.5 % (9.0-44.0); LYMPHOCYTE # 1.3 TH/MM3 (1.0-4.8); MEAN CELL VOLUME 98.8 FL (80.0-100.0); MEAN CORPUSCULAR HEMOGLOBIN 33.5 PG (27.0-34.0); MEAN CORPUSCULAR HGB CONC 33.9 % (32.0-36.0); MONO % 11.6 % (0.0-8.0); PLATELET COUNT 179 TH/MM3 (150-450); RED BLOOD COUNT 2.81 MIL/MM3 (4.50-5.90); RED CELL DISTRIBUTION WIDTH 15.6 % (11.6-17.2); WHITE BLOOD COUNT 9.1 TH/MM3 (4.0-11.0)
[2016-12-31 08:00] VITALS: BP 155/71; PULSE 88; RESP 19; TEMP 97.9; O2SAT 100
[2016-12-31] MEDS: LACTULOSE SYRUP 20 GM/30 ML CUP PO SCH (08:54)
[2016-12-31] MEDS: CALCIUM CARBONATE 500 MG CHEWABLE TAB CHEW SCH ×2 (08:54→21:16)
[2016-12-31] MEDS: DOCUSATE SODIUM 50 MG/SENNA 8.6 MG TAB PO SCH ×2 (08:54→21:16)
[2016-12-31] MEDS: FOLIC ACID 1 MG TAB PO SCH (08:54)
[2016-12-31] MEDS: POTASSIUM CHLORIDE 20 MEQ CONTROLLED RELEASE TAB PO SCH (08:55)
[2016-12-31] MEDS: LISINOPRIL 20 MG TAB PO SCH (08:55)
[2016-12-31] MEDS: FAMOTIDINE 20 MG TAB PO SCH ×2 (08:55→21:16)
[2016-12-31] MEDS: GABAPENTIN 400 MG CAP PO SCH ×3 (08:55→18:33)
[2016-12-31] MEDS: MAGNESIUM OXIDE 400 MG TAB PO SCH (08:55)
[2016-12-31] MEDS: FUROSEMIDE 20 MG TAB PO SCH (08:56)
[2016-12-31] MEDS: METOPROLOL TARTRATE 50 MG TAB PO SCH ×2 (08:56→21:16)
[2016-12-31] MEDS: NICOTINE 14 MG/24 HR PATCH TD SCH (08:56)
[2016-12-31] MEDS: SODIUM CHLORIDE 0.9% FLUSH 5 ML FLUSH IVF SCH ×2 (09:00→21:00)
[2016-12-31] MEDS: ENOXAPARIN SODIUM 40 MG/0.4 ML SYRINGE SQ SCH (11:23)
--- NOTE | 2016-12-31 12:13 | HHI.PR ---
Subjective Remarks Patient denies having diarrhea although nursing indicated he has been having significant bowel movements. Stool in specimen cup was brown and watery. Objective Vitals Vital Signs Date Time Temp Pulse Resp B/P Pulse Ox O2 Delivery O2 Flow Rate FiO2 12/31/16 08:00 97.9 88 19 155/71 100 12/31/16 07:00 Nasal Cannula 2.00 12/31/16 07:00 18 12/31/16 07:00 98 Nasal Cannula 2.00 12/30/16 20:00 99.8 70 16 115/66 100 12/30/16 19:41 98 Nasal Cannula 2.00 12/30/16 19:39 89 21 12/30/16 19:00 99 Nasal Cannula 2.00 I/O 12/30/16 12/30/16 12/30/16 12/31/16 12/31/16 12/31/16 07:00 15:00 23:00 07:00 15:00 23:00 Intake Total 300 ml 900 ml 480 ml 240 ml Output Total 700 ml 800 ml 1400 ml 350 ml Balance -400 ml 100 ml -920 ml -110 ml Intake Oral 300 ml 900 ml 480 ml 240 ml Output Urine Total 700 ml 800 ml 1400 ml 350 ml # Bowel Movements 3 0 0 Result Diagram: 12/31/16 0625 12/29/16 0635 Objective Remarks GENERAL: Well-developed patient in no apparent distress. CARDIOVASCULAR: Regular rate and rhythm. RESPIRATORY: No accessory muscle use. CTAB. GASTROINTESTINAL: Abdomen soft, non-tender, nondistended. NEUROLOGICAL: Awake, alert. Normal speech. PSYCHIATRIC: Appropriate mood and affect; insight and judgment normal. Procedures Intubation, extubation L sided VATS, multiple L chest tubes Urinary Catheter: No Vascular Central Line Catheter: No A/P Problem List: (1) Fall from ladder ICD Code: W11.XXXA Status: Acute (2) Metabolic encephalopathy ICD Code: G93.41 Status: Resolved (3) Hypercapnic respiratory failure ICD Code: J96.92 Status: Resolved (4) Traumatic pneumothorax ICD Code: S27.0XXA Status: Acute (5) Lung contusion ICD Code: S27.329A Status: Acute (6) Multiple rib fractures ICD Code: S22.49XA Status: Acute (7) Fracture of transverse process of thoracic vertebra ICD Code: S22.009A Status: Acute (8) Lumbar transverse process fracture ICD Code: S32.008A Status: Acute (9) Left acetabular fracture ICD Code: S32.402A Status: Acute (10) Bilateral pubic rami fractures ICD Code: S32.591A Status: Acute (11) Sacral fracture, closed ICD Code: S32.10XA Status: Acute (12) HTN (hypertension) ICD Code: I10 Status: Acute (13) EtOH dependence ICD Code: F10.20 Status: Acute Assessment and Plan 58-year-old gentleman reportedly fell 20 feet off from a tree onto his back without loss of consciousness. He was brought in as a trauma alert. Patient arrived alert with mild confusion complaining of back pain and left chest pain. Patient had multiple left-sided rib fractures with hemopneumothorax. Patient also had multiple pelvic fractures with sacral fracture. Initially managed in critical care, improved clinically and was transferred to medical-surgical floor. The pt then had altered mental status and was transferred to the ICU and intubated. Antibiotics were adjusted, he was evaluated by neurology, he was extubated and is now back on med-surg floor and stable. Status post fall: -Sustained multiple rib fractures, pelvic fractures with sacral fracture, nondisplaced acetabular fracture, thoracic and lumbar transverse process fractures. -Orthopedics cleared patient. Weightbearing as tolerated right lower extremity , toe-touch weightbearing left lower extremity. -Pain management with a bowel regimen. -PT/OT. Metabolic encephalopathy: Resolved. -Head CT was negative for intracranial hemorrhage. -MRI brain negative for any ischemia or acute abnormality. -EEG with no evidence of seizure activity, moderate encephalopathy. Neuro consult appreciated. Ammonia level normal. Possible delirium secondary to sepsis. Improved. He endorsed difficulty swallowing, but was evaluated by speech therapy who recommends regular diet and thin liquids. -PT/ OT. -Continue antibiotics. Pneumonia/ Left lung empyema: -S/p VATS, thoracotomy and decortication with evacuation of left empyema . -S/P Diflucan IV, Zosyn and Vancomycin. Chest tube removed. -Continue Ertapenem IV for 4 weeks. Stop date 01/21. Per ID may need follow up imaging. Call ID when patient is going to be discharged so DC orders for antibiotics can be placed. ID to follow prn. -Pain control with a bowel regimen. -Duoneb/albuterol treatments as needed. -Monitor respiratory status, continue Acapella. -PT/OT. -RT to monitor pulse oximetry. patient was taken off O2 this morning. Respiratory failure: -Chest x-ray consistent with pulmonary edema. Echo with normal EF 55%. CT chest negative for PE, showed small bilateral pleural effusions and minimal airspace disease. Intubated for altered mental status, successfully extubated. -Continue Lasix, 20 mg po. -Monitor I/O's. -Oxygen and nebs as needed. -Incentive spirometry. EtOH abuse/dependence: -S/P CIWA protocol. Patient went through DTs. Patient was counseled about complete cessation. Unclear what his baseline is. -Minimize sedating medications. -Cessation resources upon discharge. -Patient was receiving one beer with meals. Will discontinue as patient has already gone through withdrawal. Alcohol withdrawal precautions. Elevated LFTs -AST and alkaline phosphatase have been elevated. -Liver US showing normal echotexture of the liver without focal lesion no ductal dilatation. There is heterogeneous pancreatic echotexture with minimal prominence of the pancreatic duct and small bilateral pleural effusions but otherwise negative. -Hepatitis C antibody reactive. Macrocytic anemia: -Secondary to EtOH dependence. Hgb has been decreasing. Consistent with anemia of chronic disease. Stable 8.6. Repeat am CBC. - Thiamine, folate. HTN: -Continue Lopressor 50 mg twice a day, Lisinopril 20 mg daily, and Nifedipine 20 mg q8h. -Clonidine and Vasotec as needed. Diarrhea: -12/31: White blood cell count normal. C. difficile test negative. Patient endorses a history of IBS. Will order Imodium. Prophylaxis: Lovenox, SCDs. Problem Qualifiers (1) Fall from ladder: Qualified Code: W11.XXXA - Fall from ladder, initial encounter (2) Hypercapnic respiratory failure: Qualified Code: J96.02 - Acute respiratory failure with hypercapnia (3) Traumatic pneumothorax: Qualified Code: S27.0XXA - Traumatic pneumothorax, initial encounter (4) Lung contusion: Qualified Code: S27.321A - Contusion of left lung, initial encounter (5) Multiple rib fractures: Qualified Code: S22.42XA - Closed fracture of multiple ribs of left side, initial encounter (6) EtOH dependence: Jazzmine Proctor Dec 31, 2016 12:13
[2016-12-31] MEDS: NIFEdipine 20 MG CAP PO SCH ×2 (13:40→22:10)
[2016-12-31 16:52] LABS: C. DIFF EPI 027 PRESUMPTIVE NEGATIVE (NEGATIVE); C. DIFF TOXIN PCR NEGATIVE (NEGATIVE)
[2016-12-31] MEDS: ERTAPENEM INJ 1,000 MG in SODIUM CHLORIDE 0.9% INJ 100 ML IV SCH (16:53)
[2016-12-31] MEDS ORDERED: ALTEPLASE RECOMBINANT 2 MG VIAL INTRACATH ONE (17:00)
[2016-12-31] MEDS ORDERED: LOPERAMIDE HCL 2 MG CAP PO PRN (18:15)
[2016-12-31 19:38] VITALS: O2SAT 97
[2016-12-31 20:00] VITALS: BP 163/80; PULSE 84; RESP 20; TEMP 98.6; O2SAT 100
[2016-12-31] MEDS: REMOVE OLD NICODERM (NICOTINE) PATCH TD SCH (21:00)
[2016-12-31] MEDS: MELATONIN 5 MG TAB PO PRN (22:45)
[2017-01-01] MEDS: NIFEdipine 20 MG CAP PO SCH ×3 (06:03→19:57)
[2017-01-01 08:00] VITALS: BP 123/66; PULSE 80; RESP 18; TEMP 98.8; O2SAT 100
[2017-01-01] MEDS: SODIUM CHLORIDE 0.9% FLUSH 5 ML FLUSH IVF SCH ×2 (08:33→19:58)
[2017-01-01] MEDS: NICOTINE 14 MG/24 HR PATCH TD SCH (09:05)
[2017-01-01] MEDS: FOLIC ACID 1 MG TAB PO SCH (09:05)
[2017-01-01] MEDS: DOCUSATE SODIUM 50 MG/SENNA 8.6 MG TAB PO SCH ×2 (09:05→19:58)
[2017-01-01] MEDS: FAMOTIDINE 20 MG TAB PO SCH ×2 (09:05→19:57)
[2017-01-01] MEDS: CALCIUM CARBONATE 500 MG CHEWABLE TAB CHEW SCH ×2 (09:05→19:57)
[2017-01-01] MEDS: GABAPENTIN 400 MG CAP PO SCH ×3 (09:05→17:22)
[2017-01-01] MEDS: LACTULOSE SYRUP 20 GM/30 ML CUP PO SCH (09:05)
[2017-01-01] MEDS: LISINOPRIL 20 MG TAB PO SCH (09:05)
[2017-01-01] MEDS: FUROSEMIDE 20 MG TAB PO SCH (09:06)
[2017-01-01] MEDS: METOPROLOL TARTRATE 50 MG TAB PO SCH ×2 (09:06→19:57)
[2017-01-01] MEDS: POTASSIUM CHLORIDE 20 MEQ CONTROLLED RELEASE TAB PO SCH (09:06)
[2017-01-01 09:15] VITALS: O2SAT 98
[2017-01-01] MEDS: ENOXAPARIN SODIUM 40 MG/0.4 ML SYRINGE SQ SCH (11:23)
--- NOTE | 2017-01-01 11:37 | HHI.PR ---
Subjective Remarks Follow-up for trauma, empyema. Patient complains of neck pain and states he is "queasy". He has a history of chronic neck pain and has chronic limited range of motion. Nurse informed to give Zofran. I offered to order the patient muscle relaxants as he has been on them in the past but he states they don't help. Nurse tells me that the patient accidentally pulled out his central line. Objective Vitals Vital Signs Date Time Temp Pulse Resp B/P Pulse Ox O2 Delivery O2 Flow Rate FiO2 01/01/17 10:06 18 01/01/17 09:15 98 Nasal Cannula 2.00 01/01/17 08:00 98.8 80 18 123/66 100 01/01/17 07:00 Nasal Cannula 2.00 01/01/17 02:17 16 12/31/16 20:00 98.6 84 20 163/80 100 12/31/16 19:38 97 Nasal Cannula 2.00 12/31/16 19:00 Nasal Cannula 2.00 I/O 12/31/16 12/31/16 12/31/16 01/01/17 01/01/17 01/01/17 07:00 15:00 23:00 07:00 15:00 23:00 Intake Total 240 ml 360 ml 240 ml 220 ml Output Total 350 ml 1000 ml 750 ml 350 ml Balance -110 ml -640 ml -510 ml -130 ml Intake Oral 240 ml 360 ml 240 ml 220 ml Output Urine Total 350 ml 1000 ml 750 ml 350 ml # Bowel Movements 0 1 1 0 Result Diagram: 12/31/16 0625 12/29/16 0635 Objective Remarks GENERAL: Well-developed patient in no apparent distress. NECK: Tender to palpation over right and left paracervical muscles, more so on the right. No tenderness to palpation over the cervical spine. Patient has severely limited lateral range of motion but he states this is chronic. CARDIOVASCULAR: Regular rate and rhythm. RESPIRATORY: No accessory muscle use. CTAB. NEUROLOGICAL: Awake, alert, and oriented. Normal speech. PSYCHIATRIC: Appropriate mood and affect; insight and judgment normal. Procedures Intubation, extubation L sided VATS, multiple L chest tubes Urinary Catheter: No Vascular Central Line Catheter: Yes Assessment to: Remove Date of Insertion: Dec 22, 2016 Date of Removal: Jan 01, 2017 Line: Central Venous Catheter Side: Right Location: Subclavian A/P Problem List: (1) Fall from ladder ICD Code: W11.XXXA Status: Acute (2) Metabolic encephalopathy ICD Code: G93.41 Status: Resolved (3) Hypercapnic respiratory failure ICD Code: J96.92 Status: Resolved (4) Traumatic pneumothorax ICD Code: S27.0XXA Status: Acute (5) Lung contusion ICD Code: S27.329A Status: Acute (6) Multiple rib fractures ICD Code: S22.49XA Status: Acute (7) Fracture of transverse process of thoracic vertebra ICD Code: S22.009A Status: Acute (8) Lumbar transverse process fracture ICD Code: S32.008A Status: Acute (9) Left acetabular fracture ICD Code: S32.402A Status: Acute (10) Bilateral pubic rami fractures ICD Code: S32.591A Status: Acute (11) Sacral fracture, closed ICD Code: S32.10XA Status: Acute (12) HTN (hypertension) ICD Code: I10 Status: Acute (13) EtOH dependence ICD Code: F10.20 Status: Acute Assessment and Plan 58-year-old gentleman reportedly fell 20 feet off from a tree onto his back without loss of consciousness. He was brought in as a trauma alert. Patient arrived alert with mild confusion complaining of back pain and left chest pain. Patient had multiple left-sided rib fractures with hemopneumothorax. Patient also had multiple pelvic fractures with sacral fracture. Initially managed in critical care, improved clinically and was transferred to medical-surgical floor. The pt then had altered mental status and was transferred to the ICU and intubated. Antibiotics were adjusted, he was evaluated by neurology, he was extubated and is now back on med-surg floor and stable. Status post fall: -Sustained multiple rib fractures, pelvic fractures with sacral fracture, nondisplaced acetabular fracture, thoracic and lumbar transverse process fractures. -Orthopedics cleared patient. Weightbearing as tolerated right lower extremity , toe-touch weightbearing left lower extremity. -Pain management with a bowel regimen. -PT/OT. Metabolic encephalopathy: Resolved. -Head CT was negative for intracranial hemorrhage. -MRI brain negative for any ischemia or acute abnormality. -EEG with no evidence of seizure activity, moderate encephalopathy. Neuro consult appreciated. Ammonia level normal. Possible delirium secondary to sepsis. Improved. He endorsed difficulty swallowing, but was evaluated by speech therapy who recommends regular diet and thin liquids. -PT/ OT. -Continue antibiotics. Pneumonia/ Left lung empyema: -S/p VATS, thoracotomy and decortication with evacuation of left empyema . -S/P Diflucan IV, Zosyn and Vancomycin. Chest tube removed. -Continue Ertapenem IV (tentative stop date: 01/25/2017 per ID) -Patient pulled out his central line. I reconsulted vascular access for PICC line placement but vascular doctor podiatric medicine tells me that patient does not require a PICC and peripheral line can be placed. -Per ID, weekly CBC with diff, CMP, CRP while on antibiotics to be ordered and followed by hospitalist. Labs ordered for 01/07/17. -Per ID may need follow up imaging. -If any change in clinical condition or questions please call ID health analytics consultant for [place]. -Call ID when patient is going to be discharged so DC orders for antibiotics can be placed. -Pain control with a bowel regimen. -Duoneb/albuterol treatments as needed. -Monitor respiratory status, continue Acapella. -PT/OT. -RT to monitor pulse oximetry. 98% on 2L O2 this morning. Respiratory failure: -Chest x-ray consistent with pulmonary edema. Echo with normal EF 55%. CT chest negative for PE, showed small bilateral pleural effusions and minimal airspace disease. Intubated for altered mental status, successfully extubated. -Continue Lasix, 20 mg po. -Monitor I/O's. -Oxygen and nebs as needed. -Incentive spirometry. EtOH abuse/dependence: -S/P CIWA protocol. Patient went through DTs. Patient was counseled about complete cessation. Unclear what his baseline is. -Minimize sedating medications. -Cessation resources upon discharge. Elevated LFTs -AST and alkaline phosphatase have been elevated. -Liver US showing normal echotexture of the liver without focal lesion no ductal dilatation. There is heterogeneous pancreatic echotexture with minimal prominence of the pancreatic duct and small bilateral pleural effusions but otherwise negative. -Hepatitis C antibody reactive. Macrocytic anemia: -Secondary to EtOH dependence. Hgb has been decreasing. Consistent with anemia of chronic disease. Stable 8.6. - Thiamine, folate. HTN: -Continue Lopressor 50 mg twice a day, Lisinopril 20 mg daily, and Nifedipine 20 mg q8h. -Clonidine and Vasotec as needed. Diarrhea: -12/31: White blood cell count normal. C. difficile test negative. Patient endorses a history of IBS. Imodium ordered. Prophylaxis: Lovenox, SCDs. Discharge Planning 12/30/16: [facility] to evaluate for placement. Problem Qualifiers (1) Fall from ladder: Qualified Code: W11.XXXA - Fall from ladder, initial encounter (2) Hypercapnic respiratory failure: Qualified Code: J96.02 - Acute respiratory failure with hypercapnia (3) Traumatic pneumothorax: Qualified Code: S27.0XXA - Traumatic pneumothorax, initial encounter (4) Lung contusion: Qualified Code: S27.321A - Contusion of left lung, initial encounter (5) Multiple rib fractures: Qualified Code: S22.42XA - Closed fracture of multiple ribs of left side, initial encounter (6) EtOH dependence: Jazzmine Proctor Jan 01, 2017 11:37
[2017-01-01] MEDS: ERTAPENEM INJ 1,000 MG in SODIUM CHLORIDE 0.9% INJ 100 ML IV SCH (16:36)
[2017-01-01] MEDS: REMOVE OLD NICODERM (NICOTINE) PATCH TD SCH (19:58)
[2017-01-01 20:00] VITALS: BP 139/72; PULSE 83; RESP 16; TEMP 98.8; O2SAT 100
[2017-01-01 20:30] VITALS: O2SAT 100
[2017-01-01] MEDS: MELATONIN 5 MG TAB PO PRN (21:24)
[2017-01-02] MEDS: NIFEdipine 20 MG CAP PO SCH ×3 (05:23→20:18)
[2017-01-02 08:00] VITALS: BP 128/67; PULSE 80; RESP 20; TEMP 98.2; O2SAT 96
[2017-01-02] MEDS: FOLIC ACID 1 MG TAB PO SCH (09:05)
[2017-01-02] MEDS: LACTULOSE SYRUP 20 GM/30 ML CUP PO SCH (09:05)
[2017-01-02] MEDS: NICOTINE 14 MG/24 HR PATCH TD SCH (09:05)
[2017-01-02] MEDS: GABAPENTIN 400 MG CAP PO SCH ×3 (09:05→18:28)
[2017-01-02] MEDS: CALCIUM CARBONATE 500 MG CHEWABLE TAB CHEW SCH ×2 (09:05→20:16)
[2017-01-02] MEDS: POTASSIUM CHLORIDE 20 MEQ CONTROLLED RELEASE TAB PO SCH (09:06)
[2017-01-02] MEDS: METOPROLOL TARTRATE 50 MG TAB PO SCH ×2 (09:06→20:17)
[2017-01-02] MEDS: LISINOPRIL 20 MG TAB PO SCH (09:06)
[2017-01-02] MEDS: FUROSEMIDE 20 MG TAB PO SCH (09:06)
[2017-01-02] MEDS: FAMOTIDINE 20 MG TAB PO SCH ×2 (09:06→20:17)
[2017-01-02] MEDS: DOCUSATE SODIUM 50 MG/SENNA 8.6 MG TAB PO SCH ×2 (09:06→20:18)
[2017-01-02] MEDS: SODIUM CHLORIDE 0.9% FLUSH 5 ML FLUSH IVF SCH ×2 (09:07→20:22)
[2017-01-02 09:45] VITALS: O2SAT 96
[2017-01-02] MEDS: ENOXAPARIN SODIUM 40 MG/0.4 ML SYRINGE SQ SCH (11:01)
[2017-01-02 14:17] VITALS: BP 120/62; PULSE 72; RESP 18; TEMP 98.4; O2SAT 96
[2017-01-02] MEDS: ERTAPENEM INJ 1,000 MG in SODIUM CHLORIDE 0.9% INJ 100 ML IV SCH (15:11)
--- NOTE | 2017-01-02 17:24 | HHI.PR ---
Subjective Remarks Continue follow-up for empyema and multiple trauma. Doing well. Objective Vitals Vital Signs Date Time Temp Pulse Resp B/P Pulse Ox O2 Delivery O2 Flow Rate FiO2 01/02/17 16:10 18 01/02/17 14:17 98.4 72 18 120/62 96 01/02/17 09:45 96 01/02/17 08:00 98.2 80 20 128/67 96 01/02/17 07:00 96 Room Air 01/02/17 05:30 96 Room Air 01/01/17 20:30 100 Nasal Cannula 2.00 01/01/17 20:00 98.8 83 16 139/72 100 01/01/17 19:00 100 Nasal Cannula 2.00 I/O 01/01/17 01/01/17 01/01/17 01/02/17 01/02/17 01/02/17 07:00 15:00 23:00 07:00 15:00 23:00 Intake Total 220 ml 580 ml Output Total 350 ml 700 ml 575 ml 600 ml Balance -130 ml -120 ml -575 ml -600 ml Intake Oral 220 ml 480 ml IV Total 100 ml Output Urine Total 350 ml 700 ml 575 ml 600 ml # Bowel Movements 0 1 2 Result Diagram: 12/31/16 0625 12/29/16 0635 Objective Remarks GENERAL: This is a well-nourished, well-developed patient, in no apparent distress. CARDIOVASCULAR: Regular rate and rhythm without murmurs, gallops, or rubs. RESPIRATORY: Clear to auscultation. Breath sounds equal bilaterally. No wheezes , rales, or rhonchi. GASTROINTESTINAL: Abdomen soft, non-tender, nondistended. Normal active bowel sounds MUSCULOSKELETAL: Extremities without clubbing, cyanosis, or edema. NEURO: Alert & Oriented x4 to person, place, time, situation. Moves all ext x4 Procedures Intubation, extubation L sided VATS, multiple L chest tubes Date of Insertion: Dec 22, 2016 Date of Removal: Jan 01, 2017 Line: Central Venous Catheter Side: Right Location: Subclavian A/P Assessment and Plan Hospital day #38 and a 61-year-old gentleman admitted originally as a trauma. Continue to recover from his multiple injuries. 1. Status post fall: multiple rib fractures, pelvic fractures with sacral fracture, nondisplaced acetabular fracture, thoracic and lumbar transverse process fractures. Per orthopedic currently Orthopedics cleared patient. Weightbearing as tolerated right lower extremity, toe-touch weightbearing left lower extremity. -Pain management with a bowel regimen. -PT/OT. 2. Empyema.-Continue Ertapenem IV (tentative stop date: 01/25/2017 per ID) Per ID, weekly CBC with diff, CMP, CRP while on antibiotics to be ordered and followed by hospitalist. Labs ordered for 01/07/17. -Per ID may need follow up imaging. d/c penny/ voiding trial Nereida Pearson MD Jan 02, 2017 17:24
[2017-01-02] MEDS: TAMSULOSIN HCL 0.4 MG CAP PO SCH (18:28)
[2017-01-02] MEDS: REMOVE OLD NICODERM (NICOTINE) PATCH TD SCH (20:18)
[2017-01-02 21:00] VITALS: O2SAT 94
[2017-01-02 21:55] VITALS: BP 120/67; PULSE 80; RESP 20; TEMP 98.8; O2SAT 95
[2017-01-02] MEDS: MELATONIN 5 MG TAB PO PRN (22:22)
[2017-01-03] MEDS: NIFEdipine 20 MG CAP PO SCH ×3 (05:33→21:37)
[2017-01-03 08:00] VITALS: BP 98/68; PULSE 78; RESP 18; TEMP 96.7; O2SAT 94; O2SAT 98
[2017-01-03] MEDS: METOPROLOL TARTRATE 50 MG TAB PO SCH ×2 (09:00→20:33)
[2017-01-03] MEDS: LISINOPRIL 20 MG TAB PO SCH (09:00)
[2017-01-03] MEDS: CALCIUM CARBONATE 500 MG CHEWABLE TAB CHEW SCH ×2 (09:00→20:33)
[2017-01-03] MEDS: LACTULOSE SYRUP 20 GM/30 ML CUP PO SCH (09:00)
[2017-01-03] MEDS: SODIUM CHLORIDE 0.9% FLUSH 5 ML FLUSH IVF SCH ×2 (09:17→20:31)
[2017-01-03] MEDS: POTASSIUM CHLORIDE 20 MEQ CONTROLLED RELEASE TAB PO SCH (09:17)
[2017-01-03] MEDS: TAMSULOSIN HCL 0.4 MG CAP PO SCH (09:17)
[2017-01-03] MEDS: NICOTINE 14 MG/24 HR PATCH TD SCH (09:17)
[2017-01-03] MEDS: FOLIC ACID 1 MG TAB PO SCH (09:18)
[2017-01-03] MEDS: FUROSEMIDE 20 MG TAB PO SCH (09:18)
[2017-01-03] MEDS: FAMOTIDINE 20 MG TAB PO SCH ×2 (09:18→20:33)
[2017-01-03] MEDS: GABAPENTIN 400 MG CAP PO SCH ×3 (09:18→17:42)
[2017-01-03] MEDS: DOCUSATE SODIUM 50 MG/SENNA 8.6 MG TAB PO SCH ×2 (09:18→20:33)
--- NOTE | 2017-01-03 09:35 | HHI.PR ---
Subjective Remarks Follow-up for empyema, encephalopathy. Patient's Guillaume catheter was discontinued last night. Nurse informs me the patient has had darker urine the past 2 days. Now has condom catheter. Urine in Guillaume bag appears tea colored at bedside but urine in tubing appears light yellow. The patient states he does not hydrate with water much. He denies any fevers or chills, chest pain, shortness of breath, abdominal pain, vomiting, dysuria, or diarrhea. Objective Vitals Vital Signs Date Time Temp Pulse Resp B/P Pulse Ox O2 Delivery O2 Flow Rate FiO2 01/03/17 08:00 96.7 78 18 98/68 98 01/02/17 21:55 98.8 80 20 120/67 95 01/02/17 21:00 94 21 01/02/17 20:00 95 Room Air 01/02/17 16:10 18 01/02/17 14:17 98.4 72 18 120/62 96 01/02/17 09:45 96 I/O 01/02/17 01/02/17 01/02/17 01/03/17 01/03/17 01/03/17 07:00 15:00 23:00 07:00 15:00 23:00 Intake Total 100 ml Output Total 575 ml 600 ml 700 ml 250 ml Balance -575 ml -600 ml -600 ml -250 ml IV Total 100 ml Output Urine Total 575 ml 600 ml 700 ml 250 ml # Voids 0 # Bowel Movements 1 0 Result Diagram: 12/31/16 0625 Objective Remarks GENERAL: Well-developed patient in no apparent distress. CARDIOVASCULAR: Regular rate and rhythm. RESPIRATORY: No accessory muscle use. Diminished breath sounds over left anterior chest. GASTROINTESTINAL: Abdomen soft, non-tender, non-distended. NEUROLOGICAL: Awake and alert. Normal speech. PSYCHIATRIC: Appropriate mood and affect; insight and judgment normal. Procedures Intubation, extubation L sided VATS, multiple L chest tubes Urinary Catheter: No Date of Removal: Jan 02, 2017 Vascular Central Line Catheter: No Date of Insertion: Dec 22, 2016 Date of Removal: Jan 01, 2017 A/P Problem List: (1) Fall from ladder ICD Code: W11.XXXA Status: Acute (2) Metabolic encephalopathy ICD Code: G93.41 Status: Resolved (3) Hypercapnic respiratory failure ICD Code: J96.92 Status: Resolved (4) Traumatic pneumothorax ICD Code: S27.0XXA Status: Acute (5) Lung contusion ICD Code: S27.329A Status: Acute (6) Multiple rib fractures ICD Code: S22.49XA Status: Acute (7) Fracture of transverse process of thoracic vertebra ICD Code: S22.009A Status: Acute (8) Lumbar transverse process fracture ICD Code: S32.008A Status: Acute (9) Left acetabular fracture ICD Code: S32.402A Status: Acute (10) Bilateral pubic rami fractures ICD Code: S32.591A Status: Acute (11) Sacral fracture, closed ICD Code: S32.10XA Status: Acute (12) HTN (hypertension) ICD Code: I10 Status: Acute (13) EtOH dependence ICD Code: F10.20 Status: Acute Assessment and Plan 58-year-old gentleman reportedly fell 20 feet off from a tree onto his back without loss of consciousness. He was brought in as a trauma alert. Patient arrived alert with mild confusion complaining of back pain and left chest pain. Patient had multiple left-sided rib fractures with hemopneumothorax. Patient also had multiple pelvic fractures with sacral fracture. Initially managed in critical care, improved clinically and was transferred to medical-surgical floor. The pt then had altered mental status and was transferred to the ICU and intubated. Antibiotics were adjusted, he was evaluated by neurology, he was extubated and is now back on med-surg floor and stable. 01/03: Tea-colored urine: Acute. Nurse states it has been dark for the past 2 days. No gross blood noted. Patient is afebrile and asymptomatic. Labs ordered. CBC with normal white blood cell count. Hemoglobin stable at 9.7. BMP reveals normal renal function and electrolytes. UA personally interpreted with large occult blood, trace leukocyte esterase, 100-200 RBCs and 15-19 white blood cells with occult bacteria. No nitrites. Unlikely to be truly infected. Urine culture pending. I called nurse who states urine is becoming list of first job ideas. Possibly due to trauma from Guillaume removal yesterday? If continues will need to perform further workup. Patient advised to hydrate with water. Status post fall: -Sustained multiple rib fractures, pelvic fractures with sacral fracture, nondisplaced acetabular fracture, thoracic and lumbar transverse process fractures. -Orthopedics cleared patient. Weightbearing as tolerated right lower extremity , toe-touch weightbearing left lower extremity. -Pain management with a bowel regimen. -PT/OT. Metabolic encephalopathy: Resolved. -Head CT was negative for intracranial hemorrhage. -MRI brain negative for any ischemia or acute abnormality. -EEG with no evidence of seizure activity, moderate encephalopathy. Neuro consult appreciated. Ammonia level normal. Possible delirium secondary to sepsis. Improved. He endorsed difficulty swallowing, but was evaluated by speech therapy who recommends regular diet and thin liquids. -PT/ OT. -Continue antibiotics. Pneumonia/ Left lung empyema: -S/p VATS, thoracotomy and decortication with evacuation of left empyema . -S/P Diflucan IV, Zosyn and Vancomycin. Chest tube removed. -Continue Ertapenem IV (tentative stop date: 01/25/2017 per ID) -Patient pulled out his central line. I reconsulted vascular access for PICC line placement but vascular pneudraulic systems mechanic tells me that patient does not require a PICC and peripheral line can be placed. -Per ID, weekly CBC with diff, CMP, CRP while on antibiotics to be ordered and followed by hospitalist. Labs ordered for 01/07/17. -Per ID may need follow up imaging. -If any change in clinical condition or questions please call ID retail wireless sales consultant for [place]. -Call ID when patient is going to be discharged so DC orders for antibiotics can be placed. -Pain control with a bowel regimen. -Duoneb/albuterol treatments as needed. -Monitor respiratory status, continue Acapella. -PT/OT. -RT to monitor pulse oximetry. 98% on 2L O2 this morning. Respiratory failure: -Chest x-ray consistent with pulmonary edema. Echo with normal EF 55%. CT chest negative for PE, showed small bilateral pleural effusions and minimal airspace disease. Intubated for altered mental status, successfully extubated. -Continue Lasix, 20 mg po. -Monitor I/O's. -Oxygen and nebs as needed. -Incentive spirometry. EtOH abuse/dependence: -S/P CIWA protocol. Patient went through DTs. Patient was counseled about complete cessation. Unclear what his baseline is. -Minimize sedating medications. -Cessation resources upon discharge. Elevated LFTs -AST and alkaline phosphatase have been elevated. -Liver US showing normal echotexture of the liver without focal lesion no ductal dilatation. There is heterogeneous pancreatic echotexture with minimal prominence of the pancreatic duct and small bilateral pleural effusions but otherwise negative. -Hepatitis C antibody reactive. Macrocytic anemia: -Secondary to EtOH dependence. Hgb has been decreasing. Consistent with anemia of chronic disease. Stable 8.6. - Thiamine, folate. HTN: -Continue Lopressor 50 mg twice a day, Lisinopril 20 mg daily, and Nifedipine 20 mg q8h. -Clonidine and Vasotec as needed. Diarrhea: -12/31: White blood cell count normal. C. difficile test negative. Patient endorses a history of IBS. Imodium ordered. Prophylaxis: Lovenox, SCDs. Discharge Planning 12/30/16: [facility] to evaluate for placement. Problem Qualifiers (1) Fall from ladder: Qualified Code: W11.XXXA - Fall from ladder, initial encounter (2) Hypercapnic respiratory failure: Qualified Code: J96.02 - Acute respiratory failure with hypercapnia (3) Traumatic pneumothorax: Qualified Code: S27.0XXA - Traumatic pneumothorax, initial encounter (4) Lung contusion: Qualified Code: S27.321A - Contusion of left lung, initial encounter (5) Multiple rib fractures: Qualified Code: S22.42XA - Closed fracture of multiple ribs of left side, initial encounter (6) EtOH dependence: Jazzmine Proctor Jan 03, 2017 09:35
[2017-01-03] MEDS: ENOXAPARIN SODIUM 40 MG/0.4 ML SYRINGE SQ SCH (11:14)
[2017-01-03 11:28] LABS: BASOPHIL % 0.7 % (0.0-2.0); EOSINOPHIL # 0.3 TH/MM3 (0-0.4); EOSINOPHIL % 6.8 % (0.0-4.0); HEMATOCRIT 29.3 % (39.0-51.0); HEMO FLAGS DIFF FINAL; LYMPH % 18.8 % (9.0-44.0); LYMPHOCYTE # 0.9 TH/MM3 (1.0-4.8); MEAN CELL VOLUME 96.2 FL (80.0-100.0); MEAN CORPUSCULAR HGB CONC 33.3 % (32.0-36.0); MONO % 12.4 % (0.0-8.0); NEUT % 61.3 % (16.0-70.0); PLATELET COUNT 210 TH/MM3 (150-450); RED BLOOD COUNT 3.04 MIL/MM3 (4.50-5.90); RED CELL DISTRIBUTION WIDTH 14.4 % (11.6-17.2); WHITE BLOOD COUNT 4.9 TH/MM3 (4.0-11.0)
[2017-01-03 11:33] LABS: POTASSIUM 4.7 MEQ/L (3.5-5.1)
[2017-01-03 11:37] LABS: BICARBONATE 26.1 MEQ/L (21.0-32.0)
[2017-01-03 14:06] VITALS: BP 110/60; PULSE 97; RESP 18; TEMP 97.3; O2SAT 96
[2017-01-03 14:54] LABS: BLOOD, URINE LARGE (NEG); GLUCOSE,URINE NEG (NEG); KETONE, URINE NEG (NEG); NITRITE,URINE NEG (NEG)
[2017-01-03 15:44] LABS: URINE COLOR YELLOW (YELLW/STRAW)
[2017-01-03 15:46] LABS: BACTERIA, URINE OCC /hpf; COMMENT (UR) CULTURE INDICATED; CULTURE IF INDICATED CULTURE INDICATED; RBC, URINE 100-200 /hpf (0-3); SQUAMOUS EPITHELIAL CELL URINE 0-5 /hpf (0-5); WBC, URINE 15-19 /hpf (0-5)
[2017-01-03] MEDS: ERTAPENEM INJ 1,000 MG in SODIUM CHLORIDE 0.9% INJ 100 ML IV SCH (16:13)
[2017-01-03 20:00] VITALS: BP 107/62; PULSE 107; RESP 20; TEMP 98.7; O2SAT 98
[2017-01-03] MEDS: REMOVE OLD NICODERM (NICOTINE) PATCH TD SCH (20:35)
[2017-01-03 20:57] VITALS: O2SAT 94
[2017-01-03] MEDS: MELATONIN 5 MG TAB PO PRN (22:56)
[2017-01-04] MEDS: NIFEdipine 20 MG CAP PO SCH ×3 (05:42→21:45)
[2017-01-04 08:00] VITALS: BP 96/61; PULSE 68; RESP 20; TEMP 98.9; O2SAT 95
[2017-01-04] MEDS: LISINOPRIL 20 MG TAB PO SCH (09:00)
[2017-01-04] MEDS: FOLIC ACID 1 MG TAB PO SCH (09:36)
[2017-01-04] MEDS: TAMSULOSIN HCL 0.4 MG CAP PO SCH (09:36)
[2017-01-04] MEDS: FAMOTIDINE 20 MG TAB PO SCH ×2 (09:36→22:04)
[2017-01-04] MEDS: ENOXAPARIN SODIUM 40 MG/0.4 ML SYRINGE SQ SCH (09:36)
[2017-01-04] MEDS: METOPROLOL TARTRATE 50 MG TAB PO SCH (09:36)
[2017-01-04] MEDS: NICOTINE 14 MG/24 HR PATCH TD SCH (09:36)
[2017-01-04] MEDS: GABAPENTIN 400 MG CAP PO SCH ×3 (09:36→17:36)
[2017-01-04] MEDS: DOCUSATE SODIUM 50 MG/SENNA 8.6 MG TAB PO SCH ×2 (09:36→22:04)
[2017-01-04] MEDS: FUROSEMIDE 20 MG TAB PO SCH (09:36)
[2017-01-04] MEDS: CALCIUM CARBONATE 500 MG CHEWABLE TAB CHEW SCH ×2 (09:36→22:04)
[2017-01-04] MEDS: LACTULOSE SYRUP 20 GM/30 ML CUP PO SCH (09:36)
[2017-01-04] MEDS: SODIUM CHLORIDE 0.9% FLUSH 5 ML FLUSH IVF SCH ×2 (09:37→21:46)
[2017-01-04] MEDS: POTASSIUM CHLORIDE 20 MEQ CONTROLLED RELEASE TAB PO SCH (09:37)
[2017-01-04] MEDS: ACETAMINOPHEN/HYDROcodone 325 MG/10 MG TAB PO PRN ×2 (12:28→21:46)
--- NOTE | 2017-01-04 14:52 | HHI.PR ---
Subjective Remarks Patient seen and examined today. Patient only complaint is about pain medications. He states that his pain is not controlled with medication now. He states that he was getting outpatient chronic pain meds to include morphine and Lortab. He states that he did not take the morphine did not need the pain. He only took the Lortab 10 as needed. He referred to be converted back to his chronic medications. Objective Vitals Vital Signs Date Time Temp Pulse Resp B/P Pulse Ox O2 Delivery O2 Flow Rate FiO2 01/04/17 08:00 98.9 68 20 96/61 95 01/03/17 20:57 94 21 01/03/17 20:00 98.7 107 20 107/62 98 01/03/17 17:14 18 I/O 01/03/17 01/03/17 01/03/17 01/04/17 01/04/17 01/04/17 07:00 15:00 23:00 07:00 15:00 23:00 Intake Total 240 ml 240 ml 700 ml Output Total 250 ml 500 ml 450 ml 275 ml Balance -250 ml -260 ml -210 ml 425 ml Intake Oral 240 ml 240 ml 700 ml Output Urine Total 250 ml 500 ml 450 ml 275 ml # Voids 0 # Bowel Movements 0 0 0 0 Result Diagram: 01/03/17 1115 01/03/17 1115 Objective Remarks GENERAL: Well-developed, well-nourished, in no acute distress. alert and orientated HEENT: Head is normocephalic without any lesions or masses noted. Facial features are symmetric. Eyes: Extraocular muscles are intact. Conjunctivae were clear. NECK: Supple without any masses. Trachea midline no deviation. No JVD, CARDIAC: Regular rhythm, regular rate. S1/S2 are heard. No murmurs gallops or rubs. LUNGS: Clear to auscultation bilaterally. No wheeze, rhonchi or rales. No use of accessory muscles on inspiration or expiration. ABDOMEN: Soft, nontender. Nondistended. Bowel sounds heard in all 4 quadrants. No organomegaly or masses. Negative rebound, negative guarding EXTREMITIES: No edema, pulses are equal bilaterally. No cyanosis or clubbing NEUROLOGY: Mood and affect appear appropriate. Cranial nerves II through XII grossly intact. Moving all extremities. Speech is clear Procedures Intubation, extubation L sided VATS, multiple L chest tubes Urinary Catheter: No Date of Removal: Jan 02, 2017 Vascular Central Line Catheter: No A/P Assessment and Plan Status post fall: -Sustained multiple rib fractures, pelvic fractures with sacral fracture, nondisplaced acetabular fracture, thoracic and lumbar transverse process fractures. -Orthopedics cleared patient. Weightbearing as tolerated right lower extremity , toe-touch weightbearing left lower extremity. -Pain management E force research was performed which did indicate patient was on morphine 60 mg every 8 hours and Lortab 10 every 6 hours. Patient states that he did not take the morphine in only took a Lortab Patient was on Roxicodone 5 and 10 mg. However patient would make rather take his chronic medications Lortab 10 mg every 6 hours as needed for pain -PT/OT. Pneumonia/ Left lung empyema: -S/p VATS, thoracotomy and decortication with evacuation of left empyema . -S/P Diflucan IV, Zosyn and Vancomycin. Chest tube removed. -Continue Ertapenem IV (tentative stop date: 01/25/2017 per ID) -Patient pulled out his central line. I reconsulted vascular access for PICC line placement but vascular finish sander tells me that patient does not require a PICC and peripheral line can be placed. -Per ID, weekly CBC with diff, CMP, CRP while on antibiotics to be ordered and followed by hospitalist. Labs ordered for 01/07/17. -Per ID may need follow up imaging. -If any change in clinical condition or questions please call ID emr implementation specialist for [place]. -Call ID when patient is going to be discharged so DC orders for antibiotics can be placed. Urine discoloration: Resolved -Urinalysis was performed which did indicate hematuria. This is likely secondary to indwelling Guillaume catheter removed. -Patient with condom catheter at this time, urine coloration has improved -Try to avoid use of condom catheter -Urine culture shows no growth for 24 hours Metabolic encephalopathy: Resolved. -Head CT was negative for intracranial hemorrhage. -MRI brain negative for any ischemia or acute abnormality. -EEG with no evidence of seizure activity, moderate encephalopathy. Neuro consult appreciated. Ammonia level normal. Possible delirium secondary to sepsis. Improved. He endorsed difficulty swallowing, but was evaluated by speech therapy who recommends regular diet and thin liquids. -PT/ OT. -Continue antibiotics. Respiratory failure: Resolved -Chest x-ray consistent with pulmonary edema. Echo with normal EF 55%. CT chest negative for PE, showed small bilateral pleural effusions and minimal airspace disease. Intubated for altered mental status, successfully extubated. -Continue Lasix, 20 mg po. -Incentive spirometry. EtOH abuse/dependence: -S/P CINE protocol. Patient went through DTs. Patient was counseled about complete cessation. Unclear what his baseline is. -Minimize sedating medications. -Cessation resources upon discharge. Elevated LFTs, chronic -AST and alkaline phosphatase have been elevated. -Liver US showing normal echotexture of the liver without focal lesion no ductal dilatation. There is heterogeneous pancreatic echotexture with minimal prominence of the pancreatic duct and small bilateral pleural effusions but otherwise negative. -Hepatitis C antibody reactive. Macrocytic anemia: -Secondary to EtOH dependence. Hgb has been decreasing. Consistent with anemia of chronic disease. Stable 8.6. -Thiamine, folate. Hypertension: Low blood pressure this time, adjust medications -Continue Lopressor 50 mg twice a day, Lisinopril 20 mg daily, and Nifedipine 20 mg q8h. -Clonidine and Vasotec as needed. Diarrhea: -12/31: White blood cell count normal. C. difficile test negative. Patient endorses a history of IBS. Imodium ordered. Prophylaxis: Lovenox, SCDs. Discharge Planning Discharge planning per case management. Last documentation from 12/30/16 indicates requested [facility] to evaluate patient for placement Josh Kraft Jan 04, 2017 14:52
[2017-01-04] MEDS ORDERED: ONDANSETRON ODT 4 MG TAB PO PRN (15:00)
[2017-01-04 16:25] VITALS: O2SAT 95
[2017-01-04] MEDS: ERTAPENEM INJ 1,000 MG in SODIUM CHLORIDE 0.9% INJ 100 ML IV SCH (17:35)
[2017-01-04 20:00] VITALS: BP 116/63; PULSE 80; RESP 20; TEMP 97.7; O2SAT 98
[2017-01-04] MEDS: MELATONIN 5 MG TAB PO PRN (21:45)
[2017-01-04] MEDS: METOPROLOL TARTRATE 25 MG TAB PO SCH (22:04)
[2017-01-04] MEDS: REMOVE OLD NICODERM (NICOTINE) PATCH TD SCH (22:09)
[2017-01-05] MEDS: ACETAMINOPHEN/HYDROcodone 325 MG/10 MG TAB PO PRN (04:16)
[2017-01-05] MEDS: OLANZapine ODT 5 MG TAB PO PRN (04:16)
[2017-01-05] MEDS: NIFEdipine 20 MG CAP PO SCH ×3 (05:46→22:00)
[2017-01-05 07:15] VITALS: BP 126/64; PULSE 74; RESP 20; TEMP 96.6; O2SAT 98
[2017-01-05] MEDS: SODIUM CHLORIDE 0.9% FLUSH 5 ML FLUSH IVF SCH ×2 (09:00→21:00)
[2017-01-05] MEDS: METOPROLOL TARTRATE 25 MG TAB PO SCH ×2 (09:08→21:00)
[2017-01-05] MEDS: FUROSEMIDE 20 MG TAB PO SCH (09:08)
[2017-01-05] MEDS: TAMSULOSIN HCL 0.4 MG CAP PO SCH (09:08)
[2017-01-05] MEDS: FOLIC ACID 1 MG TAB PO SCH (09:08)
[2017-01-05] MEDS: FAMOTIDINE 20 MG TAB PO SCH ×2 (09:08→21:00)
[2017-01-05] MEDS: POTASSIUM CHLORIDE 20 MEQ CONTROLLED RELEASE TAB PO SCH (09:08)
[2017-01-05] MEDS: DOCUSATE SODIUM 50 MG/SENNA 8.6 MG TAB PO SCH ×2 (09:08→21:00)
[2017-01-05] MEDS: GABAPENTIN 400 MG CAP PO SCH ×3 (09:08→16:57)
[2017-01-05] MEDS: LACTULOSE SYRUP 20 GM/30 ML CUP PO SCH (09:08)
[2017-01-05] MEDS: ENOXAPARIN SODIUM 40 MG/0.4 ML SYRINGE SQ SCH (09:09)
[2017-01-05] MEDS: CALCIUM CARBONATE 500 MG CHEWABLE TAB CHEW SCH ×2 (09:09→21:00)
[2017-01-05] MEDS: NICOTINE 14 MG/24 HR PATCH TD SCH (09:09)
[2017-01-05] MEDS: REMOVE OLD NICODERM (NICOTINE) PATCH TD SCH (09:09)
--- NOTE | 2017-01-05 09:27 | HHI.PR ---
Subjective Remarks Patient seen and examined today. Patient denies any new complaints. Change patient's pain medication yesterday, he did not make any comments responses about uncontrolled pain or need for increased pain control. Nursing staff indicates that patient appears to be acting differently, more lethargic. Discussed with nursing and she indicated that they called his and she asked if someone came and visited him, because he could have got some meds from the friend Objective Vitals Vital Signs Date Time Temp Pulse Resp B/P Pulse Ox O2 Delivery O2 Flow Rate FiO2 01/04/17 20:00 97.7 80 20 116/63 98 01/04/17 16:25 95 21 I/O 01/04/17 01/04/17 01/04/17 01/05/17 01/05/17 01/05/17 07:00 15:00 23:00 07:00 15:00 23:00 Intake Total 700 ml 240 ml 120 ml Output Total 275 ml 450 ml Balance 425 ml 240 ml -330 ml Intake Oral 700 ml 240 ml 120 ml Output Urine Total 275 ml 450 ml # Voids 1 # Bowel Movements 0 2 0 Result Diagram: 01/03/17 1115 01/03/17 1115 Objective Remarks GENERAL: Well-developed, well-nourished, in no acute distress. alert and orientated HEENT: Head is normocephalic without any lesions or masses noted. Facial features are symmetric. Eyes: Extraocular muscles are intact. Conjunctivae were clear. NECK: Supple without any masses. Trachea midline no deviation. No JVD, CARDIAC: Regular rhythm, regular rate. S1/S2 are heard. No murmurs gallops or rubs. LUNGS: Clear to auscultation bilaterally. No wheeze, rhonchi or rales. No use of accessory muscles on inspiration or expiration. ABDOMEN: Soft, nontender. Nondistended. Bowel sounds heard in all 4 quadrants. No organomegaly or masses. Negative rebound, negative guarding EXTREMITIES: No edema, pulses are equal bilaterally. No cyanosis or clubbing NEUROLOGY: Mood and affect appear appropriate. Cranial nerves II through XII grossly intact. Moving all extremities. Speech is clear Procedures Intubation, extubation L sided VATS, multiple L chest tubes Urinary Catheter: No Date of Removal: Jan 02, 2017 Vascular Central Line Catheter: No A/P Assessment and Plan Altered mental status, lethargy -Check CT of the brain - indicates that his friend could have gave him Xanax, and there might be more in the room -Hold all sedating medications Status post fall: -Sustained multiple rib fractures, pelvic fractures with sacral fracture, nondisplaced acetabular fracture, thoracic and lumbar transverse process fractures. -Orthopedics cleared patient. Weightbearing as tolerated right lower extremity , toe-touch weightbearing left lower extremity. -Pain management E force research was performed which did indicate patient was on morphine 60 mg every 8 hours and Lortab 10 every 6 hours. Patient states that he did not take the morphine and only took a Lortab Lortab 10 mg every 6 hours as needed for pain -PT/OT. Pneumonia/ Left lung empyema: -S/p VATS, thoracotomy and decortication with evacuation of left empyema . -S/P Diflucan IV, Zosyn and Vancomycin. Chest tube removed. -Continue Ertapenem IV (tentative stop date: 01/25/2017 per ID) -Patient pulled out his central line. I reconsulted vascular access for PICC line placement but vascular public employment mediator tells me that patient does not require a PICC and peripheral line can be placed. -Per ID, weekly CBC with diff, CMP, CRP while on antibiotics to be ordered and followed by hospitalist. -Per ID may need follow up imaging. -If any change in clinical condition or questions please call ID control systems drafting officer for [place]. -Call ID when patient is going to be discharged so DC orders for antibiotics can be placed. Urine discoloration: Resolved -Urinalysis was performed which did indicate hematuria. This is likely secondary to indwelling Guillaume catheter removed. -Patient with condom catheter at this time, urine coloration has improved -Try to avoid use of condom catheter -Urine culture shows no growth for 24 hours Metabolic encephalopathy: Resolved. -Head CT was negative for intracranial hemorrhage. -MRI brain negative for any ischemia or acute abnormality. -EEG with no evidence of seizure activity, moderate encephalopathy. Neuro consult appreciated. Ammonia level normal. Possible delirium secondary to sepsis. Improved. He endorsed difficulty swallowing, but was evaluated by speech therapy who recommends regular diet and thin liquids. -PT/ OT. -Continue antibiotics. Respiratory failure: Resolved -Chest x-ray consistent with pulmonary edema. Echo with normal EF 55%. CT chest negative for PE, showed small bilateral pleural effusions and minimal airspace disease. Intubated for altered mental status, successfully extubated. -Continue Lasix, 20 mg po. -Incentive spirometry. EtOH abuse/dependence: -S/P CIWA protocol. Patient went through DTs. Patient was counseled about complete cessation. Unclear what his baseline is. -Minimize sedating medications. -Cessation resources upon discharge. Elevated LFTs, chronic -AST and alkaline phosphatase have been elevated. -Liver US showing normal echotexture of the liver without focal lesion no ductal dilatation. There is heterogeneous pancreatic echotexture with minimal prominence of the pancreatic duct and small bilateral pleural effusions but otherwise negative. -Hepatitis C antibody reactive. Macrocytic anemia: -Secondary to EtOH dependence. Hgb has been decreasing. Consistent with anemia of chronic disease. Stable 8.6. -Thiamine, folate. Hypertension: Low blood pressure this time, adjust medications -Continue Lopressor 50 mg twice a day, Lisinopril 20 mg daily, and Nifedipine 20 mg q8h. -Clonidine and Vasotec as needed. Diarrhea: -12/31: White blood cell count normal. C. difficile test negative. Patient endorses a history of IBS. Imodium ordered. Prophylaxis: Lovenox, SCDs. Discharge Planning Discharge planning per case management. Last documentation from 12/30/16 indicates requested [facility] to evaluate patient for placement Josh Kraft Jan 05, 2017 09:27
[2017-01-05] MEDS: ERTAPENEM INJ 1,000 MG in SODIUM CHLORIDE 0.9% INJ 100 ML IV SCH (16:53)
--- NOTE | 2017-01-05 17:02 | RADHPO ---
EXAM DATE/TIME: 01/05/2017 16:20 [place] COMPARISON: CT BRAIN W/O CONTRAST, December 22, 2016, 1:37. INDICATIONS : Altered mental status. RADIATION DOSE: 64.37 CTDIvol (mGy) MEDICAL HISTORY : None SURGICAL HISTORY : None. ENCOUNTER: Initial ACUITY: 1 day PAIN SCALE: 0/10 LOCATION: cranial TECHNIQUE: Multiple contiguous axial images were obtained of the head. Using automated exposure control and adj ustment of the mA and/or kV according to patient size, radiation dose was kept as low as reasonably a chievable to obtain optimal diagnostic quality images. FINDINGS: CEREBRUM: The ventricles are normal for age. No evidence of midline shift, mass lesion, hemorrhage or acute in farction. No extra-axial fluid collections are seen. POSTERIOR FOSSA: The cerebellum and brainstem are intact. The 4th ventricle is midline. The cerebellopontine angle i s unremarkable. EXTRACRANIAL: The visualized portion of the orbits is intact. SKULL: The calvaria is intact. No evidence of skull fracture. CONCLUSION: Stable appearance of the brain. No evidence of acute infarct, hemorrhage, mass or edema. Marino Walker MD on January 05, 2017 at 17:00 Board Certified Radiologist. This report was verified electronically.
[2017-01-05 20:00] VITALS: BP 112/64; PULSE 90; RESP 17; TEMP 98.5; O2SAT 97
[2017-01-05 23:34] LABS: AMPHETAMINE, URINE NEG (NEG); BARBITURATES, URINE NEG (NEG); COCAINE, URINE NEG (NEG)
[2017-01-06] MEDS: NIFEdipine 20 MG CAP PO SCH ×3 (06:02→21:56)
[2017-01-06 07:15] VITALS: BP 117/70; PULSE 111; RESP 21; TEMP 97; O2SAT 99
[2017-01-06] MEDS: FAMOTIDINE 20 MG TAB PO SCH ×2 (08:58→20:13)
[2017-01-06] MEDS: METOPROLOL TARTRATE 25 MG TAB PO SCH ×2 (08:58→20:13)
[2017-01-06] MEDS: FUROSEMIDE 20 MG TAB PO SCH (08:58)
[2017-01-06] MEDS: FOLIC ACID 1 MG TAB PO SCH (08:58)
[2017-01-06] MEDS: POTASSIUM CHLORIDE 20 MEQ CONTROLLED RELEASE TAB PO SCH (08:58)
[2017-01-06] MEDS: DOCUSATE SODIUM 50 MG/SENNA 8.6 MG TAB PO SCH ×2 (08:58→20:13)
[2017-01-06] MEDS: TAMSULOSIN HCL 0.4 MG CAP PO SCH (08:59)
[2017-01-06] MEDS: GABAPENTIN 400 MG CAP PO SCH ×3 (08:59→17:04)
[2017-01-06] MEDS: REMOVE OLD NICODERM (NICOTINE) PATCH TD SCH (08:59)
[2017-01-06] MEDS: NICOTINE 14 MG/24 HR PATCH TD SCH (08:59)
[2017-01-06] MEDS: SODIUM CHLORIDE 0.9% FLUSH 5 ML FLUSH IVF SCH ×2 (09:00→20:14)
[2017-01-06] MEDS: LACTULOSE SYRUP 20 GM/30 ML CUP PO SCH (09:00)
[2017-01-06] MEDS: CALCIUM CARBONATE 500 MG CHEWABLE TAB CHEW SCH ×2 (09:00→20:13)
[2017-01-06] MEDS: ENOXAPARIN SODIUM 40 MG/0.4 ML SYRINGE SQ SCH (11:00)
--- NOTE | 2017-01-06 14:10 | HHI.PR ---
Subjective Remarks Patient seen and examined today. Patient has any new complaints. Patient not indicate anything about requiring pain medication. Those were held yesterday afternoon. Patient not appear to be in pain. However upon leaving the room he is requesting that we resume his regular medications. Objective Vitals Vital Signs Date Time Temp Pulse Resp B/P Pulse Ox O2 Delivery O2 Flow Rate FiO2 01/06/17 07:15 97.0 111 21 117/70 99 01/05/17 20:00 98.5 90 17 112/64 97 I/O 01/05/17 01/05/17 01/05/17 01/06/17 01/06/17 01/06/17 07:00 15:00 23:00 07:00 15:00 23:00 Intake Total 120 ml 0 ml 220 ml 120 ml Output Total 450 ml 500 ml 550 ml 400 ml Balance -330 ml -500 ml -330 ml -280 ml Intake Oral 120 ml 220 ml 120 ml IV Total 0 ml Output Urine Total 450 ml 500 ml 550 ml 400 ml # Bowel Movements 0 2 2 0 Result Diagram: 01/03/17 1115 01/03/17 1115 Objective Remarks GENERAL: Well-developed, well-nourished, in no acute distress. alert and orientated HEENT: Head is normocephalic without any lesions or masses noted. Facial features are symmetric. Eyes: Extraocular muscles are intact. Conjunctivae were clear. NECK: Supple without any masses. Trachea midline no deviation. No JVD, CARDIAC: Regular rhythm, regular rate. S1/S2 are heard. No murmurs gallops or rubs. LUNGS: Clear to auscultation bilaterally. No wheeze, rhonchi or rales. No use of accessory muscles on inspiration or expiration. ABDOMEN: Soft, nontender. Nondistended. Bowel sounds heard in all 4 quadrants. No organomegaly or masses. Negative rebound, negative guarding EXTREMITIES: No edema, pulses are equal bilaterally. No cyanosis or clubbing NEUROLOGY: Mood and affect appear appropriate. Cranial nerves II through XII grossly intact. Moving all extremities. Speech is clear Procedures Intubation, extubation L sided VATS, multiple L chest tubes Urinary Catheter: No Date of Removal: Jan 02, 2017 Vascular Central Line Catheter: No A/P Assessment and Plan Altered mental status, lethargy -CT of the brain was negative - indicates that his friend could have gave him Xanax, and there might be more in the room -Urine drug screen was only positive for opiates, no benzodiazepines Status post fall: -Sustained multiple rib fractures, pelvic fractures with sacral fracture, nondisplaced acetabular fracture, thoracic and lumbar transverse process fractures. -Orthopedics cleared patient. Weightbearing as tolerated right lower extremity , toe-touch weightbearing left lower extremity. -Pain management E force research was performed which did indicate patient was on morphine 60 mg every 8 hours and Lortab 10 every 6 hours. Patient states that he did not take the morphine and only took a Lortab Lortab 7.5 mg every 6 hours as needed for pain -PT/OT. Pneumonia/ Left lung empyema: -S/p VATS, thoracotomy and decortication with evacuation of left empyema . -S/P Diflucan IV, Zosyn and Vancomycin. Chest tube removed. -Continue Ertapenem IV (tentative stop date: 01/25/2017 per ID) -Patient pulled out his central line. I reconsulted vascular access for PICC line placement but vascular coil assembler tells me that patient does not require a PICC and peripheral line can be placed. -Per ID, weekly CBC with diff, CMP, CRP while on antibiotics to be ordered and followed by hospitalist. -Per ID may need follow up imaging. -If any change in clinical condition or questions please call ID distillation operator for [place]. -Call ID when patient is going to be discharged so DC orders for antibiotics can be placed. Urine discoloration: Resolved -Urinalysis was performed which did indicate hematuria. This is likely secondary to indwelling Guillaume catheter removed. -Patient with condom catheter at this time, urine coloration has improved -Try to avoid use of condom catheter -Urine culture shows no growth for 24 hours Metabolic encephalopathy: Resolved. -Head CT was negative for intracranial hemorrhage. -MRI brain negative for any ischemia or acute abnormality. -EEG with no evidence of seizure activity, moderate encephalopathy. Neuro consult appreciated. Ammonia level normal. Possible delirium secondary to sepsis. Improved. He endorsed difficulty swallowing, but was evaluated by speech therapy who recommends regular diet and thin liquids. -PT/ OT. -Continue antibiotics. Respiratory failure: Resolved -Chest x-ray consistent with pulmonary edema. Echo with normal EF 55%. CT chest negative for PE, showed small bilateral pleural effusions and minimal airspace disease. Intubated for altered mental status, successfully extubated. -Continue Lasix, 20 mg po. -Incentive spirometry. EtOH abuse/dependence: -S/P CIWA protocol. Patient went through DTs. Patient was counseled about complete cessation. Unclear what his baseline is. -Minimize sedating medications. -Cessation resources upon discharge. Elevated LFTs, chronic -AST and alkaline phosphatase have been elevated. -Liver US showing normal echotexture of the liver without focal lesion no ductal dilatation. There is heterogeneous pancreatic echotexture with minimal prominence of the pancreatic duct and small bilateral pleural effusions but otherwise negative. -Hepatitis C antibody reactive. Macrocytic anemia: -Secondary to EtOH dependence. Hgb has been decreasing. Consistent with anemia of chronic disease. Stable 8.6. -Thiamine, folate. Hypertension: Low blood pressure this time, adjust medications -Continue Lopressor 50 mg twice a day, Lisinopril 20 mg daily, and Nifedipine 20 mg q8h. -Clonidine and Vasotec as needed. Diarrhea: -12/31: White blood cell count normal. C. difficile test negative. Patient endorses a history of IBS. Imodium ordered. Prophylaxis: Lovenox, SCDs. Discharge Planning Discharge planning per case management. Last documentation from 12/30/16 indicates requested [facility] to evaluate patient for placement Josh Kraft Jan 06, 2017 14:10
[2017-01-06] MEDS: ERTAPENEM INJ 1,000 MG in SODIUM CHLORIDE 0.9% INJ 100 ML IV SCH (17:04)
[2017-01-06] MEDS: ACETAMINOPHEN/HYDROcodone 325 MG/7.5 MG TAB PO PRN (18:13)
[2017-01-06 20:00] VITALS: BP 122/62; PULSE 94; RESP 18; TEMP 97; O2SAT 96
[2017-01-06] MEDS: MELATONIN 5 MG TAB PO PRN (20:13)
[2017-01-06] MEDS: OLANZapine ODT 5 MG TAB PO PRN (23:11)
[2017-01-07] MEDS: NIFEdipine 20 MG CAP PO SCH ×3 (05:23→21:09)
[2017-01-07 06:51] LABS: BASOPHIL # 0.2 TH/MM3 (0-0.2); BASOPHIL % 4.4 % (0.0-2.0); CHLORIDE 107 MEQ/L (98-107); EOSINOPHIL # 0.4 TH/MM3 (0-0.4); EOSINOPHIL % 8.9 % (0.0-4.0); HEMATOCRIT 32.7 % (39.0-51.0); HEMO FLAGS DIFF FINAL; LYMPH % 26.4 % (9.0-44.0); LYMPHOCYTE # 1.2 TH/MM3 (1.0-4.8); MEAN CELL VOLUME 95.6 FL (80.0-100.0); MEAN CORPUSCULAR HEMOGLOBIN 31.8 PG (27.0-34.0); MEAN CORPUSCULAR HGB CONC 33.3 % (32.0-36.0); MONO % 14.3 % (0.0-8.0); PLATELET COUNT 279 TH/MM3 (150-450); POTASSIUM 4.6 MEQ/L (3.5-5.1); RED BLOOD COUNT 3.42 MIL/MM3 (4.50-5.90); RED CELL DISTRIBUTION WIDTH 14.4 % (11.6-17.2); SODIUM (NA) 140 MEQ/L (136-145); WHITE BLOOD COUNT 4.6 TH/MM3 (4.0-11.0)
[2017-01-07 06:55] LABS: ANION GAP 9 MEQ/L (5-15); BICARBONATE 24.5 MEQ/L (21.0-32.0); BLOOD UREA NITROGEN 13 MG/DL (7-18)
[2017-01-07 06:58] LABS: ALT (GPT) 87 U/L (12-78); AST (GOT) 169 U/L (15-37); GLOMERULAR FILTRATION RATE 131 ML/MIN (>89)
[2017-01-07 06:59] LABS: TOTAL BILIRUBIN ADULT 0.4 MG/DL (0.2-1.0)
[2017-01-07 07:01] LABS: ALKALINE PHOSPHATASE 194 U/L (45-117)
[2017-01-07 08:00] VITALS: BP 147/63; PULSE 89; RESP 18; TEMP 97.2; O2SAT 95
[2017-01-07] MEDS: FOLIC ACID 1 MG TAB PO SCH (09:29)
[2017-01-07] MEDS: METOPROLOL TARTRATE 25 MG TAB PO SCH ×2 (09:29→21:10)
[2017-01-07] MEDS: CALCIUM CARBONATE 500 MG CHEWABLE TAB CHEW SCH ×2 (09:29→21:08)
[2017-01-07] MEDS: DOCUSATE SODIUM 50 MG/SENNA 8.6 MG TAB PO SCH ×2 (09:29→21:10)
[2017-01-07] MEDS: FAMOTIDINE 20 MG TAB PO SCH ×2 (09:29→21:10)
[2017-01-07] MEDS: GABAPENTIN 400 MG CAP PO SCH ×3 (09:29→18:17)
[2017-01-07] MEDS: NICOTINE 14 MG/24 HR PATCH TD SCH (09:30)
[2017-01-07] MEDS: FUROSEMIDE 20 MG TAB PO SCH (09:30)
[2017-01-07] MEDS: TAMSULOSIN HCL 0.4 MG CAP PO SCH (09:30)
[2017-01-07] MEDS: POTASSIUM CHLORIDE 20 MEQ CONTROLLED RELEASE TAB PO SCH (09:30)
[2017-01-07] MEDS: LACTULOSE SYRUP 20 GM/30 ML CUP PO SCH (09:31)
[2017-01-07] MEDS: SODIUM CHLORIDE 0.9% FLUSH 5 ML FLUSH IVF SCH ×2 (09:31→21:12)
[2017-01-07] MEDS: ENOXAPARIN SODIUM 40 MG/0.4 ML SYRINGE SQ SCH (11:09)
[2017-01-07] MEDS: ACETAMINOPHEN/HYDROcodone 325 MG/7.5 MG TAB PO PRN ×2 (13:49→21:16)
--- NOTE | 2017-01-07 14:07 | HHI.PR ---
Subjective Remarks Patient seen and examined today. Patient denies any new complaints. No change in clinical status. Objective Vitals Vital Signs Date Time Temp Pulse Resp B/P Pulse Ox O2 Delivery O2 Flow Rate FiO2 01/07/17 08:00 97.2 89 18 147/63 95 01/06/17 20:00 97.0 94 18 122/62 96 I/O 01/06/17 01/06/17 01/06/17 01/07/17 01/07/17 01/07/17 07:00 15:00 23:00 07:00 15:00 23:00 Intake Total 120 ml 0 ml 480 ml 440 ml Output Total 400 ml 0 ml 650 ml Balance -280 ml 0 ml 480 ml -210 ml Intake Oral 120 ml 480 ml 440 ml IV Total 0 ml Output Urine Total 400 ml 0 ml 650 ml # Bowel Movements 0 1 0 Result Diagram: 01/07/1731 01/07/17 06 Objective Remarks GENERAL: Well-developed, well-nourished, in no acute distress. alert and orientated HEENT: Head is normocephalic without any lesions or masses noted. Facial features are symmetric. Eyes: Extraocular muscles are intact. Conjunctivae were clear. NECK: Supple without any masses. Trachea midline no deviation. No JVD, CARDIAC: Regular rhythm, regular rate. S1/S2 are heard. No murmurs gallops or rubs. LUNGS: Clear to auscultation bilaterally. No wheeze, rhonchi or rales. No use of accessory muscles on inspiration or expiration. ABDOMEN: Soft, nontender. Nondistended. Bowel sounds heard in all 4 quadrants. No organomegaly or masses. Negative rebound, negative guarding EXTREMITIES: No edema, pulses are equal bilaterally. No cyanosis or clubbing NEUROLOGY: Mood and affect appear appropriate. Cranial nerves II through XII grossly intact. Moving all extremities. Speech is clear Procedures Intubation, extubation L sided VATS, multiple L chest tubes Urinary Catheter: No Date of Removal: Jan 02, 2017 Vascular Central Line Catheter: No A/P Assessment and Plan Altered mental status, lethargy -CT of the brain was negative - indicates that his friend could have gave him Xanax, and there might be more in the room -Urine drug screen was only positive for opiates, no benzodiazepines Status post fall: -Sustained multiple rib fractures, pelvic fractures with sacral fracture, nondisplaced acetabular fracture, thoracic and lumbar transverse process fractures. -Orthopedics cleared patient. Weightbearing as tolerated right lower extremity , toe-touch weightbearing left lower extremity. -Pain management E force research was performed which did indicate patient was on morphine 60 mg every 8 hours and Lortab 10 every 6 hours. Patient states that he did not take the morphine and only took a Lortab Lortab 7.5 mg every 6 hours as needed for pain -PT/OT. Pneumonia/ Left lung empyema: -S/p VATS, thoracotomy and decortication with evacuation of left empyema . -S/P Diflucan IV, Zosyn and Vancomycin. Chest tube removed. -Continue Ertapenem IV (tentative stop date: 01/25/2017 per ID) -Patient pulled out his central line. I reconsulted vascular access for PICC line placement but vascular taffy candy maker tells me that patient does not require a PICC and peripheral line can be placed. -Per ID, weekly CBC with diff, CMP, CRP while on antibiotics to be ordered and followed by hospitalist. -Per ID may need follow up imaging. -If any change in clinical condition or questions please call ID manager completions for [place]. -Call ID when patient is going to be discharged so DC orders for antibiotics can be placed. Urine discoloration: Resolved -Urinalysis was performed which did indicate hematuria. This is likely secondary to indwelling Guillaume catheter removed. -Patient with condom catheter at this time, urine coloration has improved -Try to avoid use of condom catheter -Urine culture shows no growth for 24 hours Metabolic encephalopathy: Resolved. -Head CT was negative for intracranial hemorrhage. -MRI brain negative for any ischemia or acute abnormality. -EEG with no evidence of seizure activity, moderate encephalopathy. Neuro consult appreciated. Ammonia level normal. Possible delirium secondary to sepsis. Improved. He endorsed difficulty swallowing, but was evaluated by speech therapy who recommends regular diet and thin liquids. -PT/ OT. -Continue antibiotics. Respiratory failure: Resolved -Chest x-ray consistent with pulmonary edema. Echo with normal EF 55%. CT chest negative for PE, showed small bilateral pleural effusions and minimal airspace disease. Intubated for altered mental status, successfully extubated. -Continue Lasix, 20 mg po. -Incentive spirometry. EtOH abuse/dependence: -S/P CIWA protocol. Patient went through DTs. Patient was counseled about complete cessation. Unclear what his baseline is. -Minimize sedating medications. -Cessation resources upon discharge. Elevated LFTs, chronic -AST and alkaline phosphatase have been elevated. -Liver US showing normal echotexture of the liver without focal lesion no ductal dilatation. There is heterogeneous pancreatic echotexture with minimal prominence of the pancreatic duct and small bilateral pleural effusions but otherwise negative. -Hepatitis C antibody reactive. Macrocytic anemia: -Secondary to EtOH dependence. Hgb has been decreasing. Consistent with anemia of chronic disease. Stable 8.6. -Thiamine, folate. Hypertension: Low blood pressure this time, adjust medications -Continue Lopressor 50 mg twice a day, Lisinopril 20 mg daily, and Nifedipine 20 mg q8h. -Clonidine and Vasotec as needed. Diarrhea: -12/31: White blood cell count normal. C. difficile test negative. Patient endorses a history of IBS. Imodium ordered. Prophylaxis: Lovenox, SCDs. Discharge Planning Discharge planning per case management. Last documentation from 12/30/16 indicates requested [facility] to evaluate patient for placement Josh Kraft Jan 07, 2017 14:07
[2017-01-07] MEDS: ERTAPENEM INJ 1,000 MG in SODIUM CHLORIDE 0.9% INJ 100 ML IV SCH (16:10)
[2017-01-07 20:00] VITALS: BP 135/66; PULSE 101; RESP 16; TEMP 98.9; O2SAT 100
[2017-01-07] MEDS: REMOVE OLD NICODERM (NICOTINE) PATCH TD SCH (21:00)
[2017-01-07] MEDS: MELATONIN 5 MG TAB PO PRN (22:28)
[2017-01-08] MEDS: NIFEdipine 20 MG CAP PO SCH ×3 (06:07→21:33)
[2017-01-08 08:00] VITALS: BP 118/64; PULSE 83; RESP 19; TEMP 96.8; O2SAT 98
[2017-01-08] MEDS: NICOTINE 14 MG/24 HR PATCH TD SCH (08:01)
[2017-01-08] MEDS: POTASSIUM CHLORIDE 20 MEQ CONTROLLED RELEASE TAB PO SCH (08:01)
[2017-01-08] MEDS: FUROSEMIDE 20 MG TAB PO SCH (08:01)
[2017-01-08] MEDS: DOCUSATE SODIUM 50 MG/SENNA 8.6 MG TAB PO SCH ×2 (08:01→20:44)
[2017-01-08] MEDS: CALCIUM CARBONATE 500 MG CHEWABLE TAB CHEW SCH ×2 (08:01→20:44)
[2017-01-08] MEDS: FOLIC ACID 1 MG TAB PO SCH (08:02)
[2017-01-08] MEDS: TAMSULOSIN HCL 0.4 MG CAP PO SCH (08:02)
[2017-01-08] MEDS: LACTULOSE SYRUP 20 GM/30 ML CUP PO SCH (08:02)
[2017-01-08] MEDS: GABAPENTIN 400 MG CAP PO SCH ×3 (08:02→17:32)
[2017-01-08] MEDS: METOPROLOL TARTRATE 25 MG TAB PO SCH ×2 (08:02→20:44)
[2017-01-08] MEDS: FAMOTIDINE 20 MG TAB PO SCH ×2 (08:02→20:47)
[2017-01-08] MEDS: ACETAMINOPHEN/HYDROcodone 325 MG/7.5 MG TAB PO PRN (08:11)
[2017-01-08] MEDS: ENOXAPARIN SODIUM 40 MG/0.4 ML SYRINGE SQ SCH (11:15)
[2017-01-08] MEDS: LIDOCAINE HCL 5% PATCH TD SCH (11:15)
[2017-01-08] MEDS: SODIUM CHLORIDE 0.9% FLUSH 5 ML FLUSH IVF SCH ×2 (11:16→20:45)
--- NOTE | 2017-01-08 13:36 | HHI.PR ---
Subjective Remarks Patient examined today. Patient denies any new complaints. No change clinical status. Patient is asking if he can get a patch to go over his left hip pain area Objective Vitals Vital Signs Date Time Temp Pulse Resp B/P Pulse Ox O2 Delivery O2 Flow Rate FiO2 01/08/17 09:11 20 01/08/17 08:00 96.8 83 19 118/64 98 01/07/17 20:00 98.9 101 16 135/66 100 I/O 01/07/17 01/07/17 01/07/17 01/08/17 01/08/17 01/08/17 07:00 15:00 23:00 07:00 15:00 23:00 Intake Total 440 ml 900 ml 440 ml Output Total 650 ml 150 ml 150 ml 450 ml Balance -210 ml 750 ml 290 ml -450 ml Intake Oral 440 ml 800 ml 440 ml IV Total 100 ml Output Urine Total 650 ml 150 ml 150 ml 450 ml # Bowel Movements 0 2 0 0 Result Diagram: 01/07/1763001/07/17630 Objective Remarks GENERAL: Well-developed, well-nourished, in no acute distress. alert and orientated HEENT: Head is normocephalic without any lesions or masses noted. Facial features are symmetric. Eyes: Extraocular muscles are intact. Conjunctivae were clear. NECK: Supple without any masses. Trachea midline no deviation. No JVD, CARDIAC: Regular rhythm, regular rate. S1/S2 are heard. No murmurs gallops or rubs. LUNGS: Clear to auscultation bilaterally. No wheeze, rhonchi or rales. No use of accessory muscles on inspiration or expiration. ABDOMEN: Soft, nontender. Nondistended. Bowel sounds heard in all 4 quadrants. No organomegaly or masses. Negative rebound, negative guarding EXTREMITIES: No edema, pulses are equal bilaterally. No cyanosis or clubbing NEUROLOGY: Mood and affect appear appropriate. Cranial nerves II through XII grossly intact. Moving all extremities. Speech is clear Procedures Intubation, extubation L sided VATS, multiple L chest tubes Urinary Catheter: No Date of Removal: Jan 02, 2017 Vascular Central Line Catheter: No A/P Assessment and Plan Altered mental status, lethargy -CT of the brain was negative - indicates that his friend could have gave him Xanax, and there might be more in the room -Urine drug screen was only positive for opiates, no benzodiazepines Status post fall: -Sustained multiple rib fractures, pelvic fractures with sacral fracture, nondisplaced acetabular fracture, thoracic and lumbar transverse process fractures. -Orthopedics cleared patient. Weightbearing as tolerated right lower extremity , toe-touch weightbearing left lower extremity. -Pain management E force research was performed which did indicate patient was on morphine 60 mg every 8 hours and Lortab 10 every 6 hours. Patient states that he did not take the morphine and only took a Lortab Lortab 7.5 mg every 6 hours as needed for pain Lidoderm patch to area -PT/OT. Pneumonia/ Left lung empyema: -S/p VATS, thoracotomy and decortication with evacuation of left empyema . -S/P Diflucan IV, Zosyn and Vancomycin. Chest tube removed. -Continue Ertapenem IV (tentative stop date: 01/25/2017 per ID) -Patient pulled out his central line. I reconsulted vascular access for PICC line placement but vascular access developer tells me that patient does not require a PICC and peripheral line can be placed. -Per ID, weekly CBC with diff, CMP, CRP while on antibiotics to be ordered and followed by hospitalist. -Per ID may need follow up imaging. -If any change in clinical condition or questions please call ID refrigeration service technician for [place]. -Call ID when patient is going to be discharged so DC orders for antibiotics can be placed. Urine discoloration: Resolved -Urinalysis was performed which did indicate hematuria. This is likely secondary to indwelling Guillaume catheter removed. -Patient with condom catheter at this time, urine coloration has improved -Try to avoid use of condom catheter -Urine culture shows no growth for 24 hours Metabolic encephalopathy: Resolved. -Head CT was negative for intracranial hemorrhage. -MRI brain negative for any ischemia or acute abnormality. -EEG with no evidence of seizure activity, moderate encephalopathy. Neuro consult appreciated. Ammonia level normal. Possible delirium secondary to sepsis. Improved. He endorsed difficulty swallowing, but was evaluated by speech therapy who recommends regular diet and thin liquids. -PT/ OT. -Continue antibiotics. Respiratory failure: Resolved -Chest x-ray consistent with pulmonary edema. Echo with normal EF 55%. CT chest negative for PE, showed small bilateral pleural effusions and minimal airspace disease. Intubated for altered mental status, successfully extubated. -Continue Lasix, 20 mg po. -Incentive spirometry. EtOH abuse/dependence: -S/P CIWA protocol. Patient went through DTs. Patient was counseled about complete cessation. Unclear what his baseline is. -Minimize sedating medications. -Cessation resources upon discharge. Elevated LFTs, chronic -AST and alkaline phosphatase have been elevated. -Liver US showing normal echotexture of the liver without focal lesion no ductal dilatation. There is heterogeneous pancreatic echotexture with minimal prominence of the pancreatic duct and small bilateral pleural effusions but otherwise negative. -Hepatitis C antibody reactive. Macrocytic anemia: -Secondary to EtOH dependence. Hgb has been decreasing. Consistent with anemia of chronic disease. Stable 8.6. -Thiamine, folate. Hypertension: Low blood pressure this time, adjust medications -Continue Lopressor 50 mg twice a day, Lisinopril 20 mg daily, and Nifedipine 20 mg q8h. -Clonidine and Vasotec as needed. Diarrhea: -12/31: White blood cell count normal. C. difficile test negative. Patient endorses a history of IBS. Imodium ordered. Prophylaxis: Lovenox, SCDs. Discharge Planning Discharge planning per case management. Last documentation from 12/30/16 indicates requested [facility] to evaluate patient for placement Johs Kraft Jan 08, 2017 13:36
[2017-01-08] MEDS: ERTAPENEM INJ 1,000 MG in SODIUM CHLORIDE 0.9% INJ 100 ML IV SCH (14:44)
[2017-01-08 20:00] VITALS: BP 139/66; PULSE 92; RESP 20; TEMP 96.5; O2SAT 100
[2017-01-08] MEDS: REMOVE OLD PATCH T-DERMAL SCH (20:49)
[2017-01-08] MEDS: REMOVE OLD NICODERM (NICOTINE) PATCH TD SCH (21:35)
[2017-01-08] MEDS: MELATONIN 5 MG TAB PO PRN (23:38)
[2017-01-09] MEDS: NIFEdipine 20 MG CAP PO SCH ×3 (06:05→22:43)
[2017-01-09 08:00] VITALS: BP 137/66; PULSE 96; RESP 18; TEMP 97.2; O2SAT 100
[2017-01-09] MEDS: METOPROLOL TARTRATE 25 MG TAB PO SCH ×2 (09:21→21:15)
[2017-01-09] MEDS: LACTULOSE SYRUP 20 GM/30 ML CUP PO SCH (09:21)
[2017-01-09] MEDS: CALCIUM CARBONATE 500 MG CHEWABLE TAB CHEW SCH ×2 (09:22→21:15)
[2017-01-09] MEDS: POTASSIUM CHLORIDE 20 MEQ CONTROLLED RELEASE TAB PO SCH (09:22)
[2017-01-09] MEDS: FAMOTIDINE 20 MG TAB PO SCH ×2 (09:22→21:15)
[2017-01-09] MEDS: FUROSEMIDE 20 MG TAB PO SCH (09:22)
[2017-01-09] MEDS: FOLIC ACID 1 MG TAB PO SCH (09:22)
[2017-01-09] MEDS: NICOTINE 14 MG/24 HR PATCH TD SCH (09:22)
[2017-01-09] MEDS: DOCUSATE SODIUM 50 MG/SENNA 8.6 MG TAB PO SCH ×2 (09:22→21:15)
[2017-01-09] MEDS: TAMSULOSIN HCL 0.4 MG CAP PO SCH (09:22)
[2017-01-09] MEDS: SODIUM CHLORIDE 0.9% FLUSH 5 ML FLUSH IVF SCH ×2 (09:23→21:15)
[2017-01-09] MEDS: LIDOCAINE HCL 5% PATCH TD SCH (09:23)
[2017-01-09] MEDS: GABAPENTIN 400 MG CAP PO SCH ×3 (09:23→16:09)
[2017-01-09] MEDS: ENOXAPARIN SODIUM 40 MG/0.4 ML SYRINGE SQ SCH (09:24)
--- NOTE | 2017-01-09 09:43 | HHI.PR ---
Subjective Remarks Patient seen and examined today. Patient was sleeping with eyes open. Patient still with lethargy. Will need to adjust pain medication to evaluate for improvement of mental status Objective Vitals Vital Signs Date Time Temp Pulse Resp B/P Pulse Ox O2 Delivery O2 Flow Rate FiO2 01/09/17 08:00 97.2 96 18 137/66 100 01/08/17 20:00 96.5 92 20 139/66 100 I/O 01/08/17 01/08/17 01/08/17 01/09/17 01/09/17 01/09/17 07:00 15:00 23:00 07:00 15:00 23:00 Intake Total 440 ml 360 ml 480 ml Output Total 150 ml 450 ml 825 ml 350 ml Balance 290 ml -450 ml -465 ml 130 ml Intake Oral 440 ml 360 ml 480 ml Output Urine Total 150 ml 450 ml 825 ml 350 ml # Bowel Movements 0 0 0 Result Diagram: 01/07/1763001/07/17630 Objective Remarks GENERAL: Well-developed, well-nourished, in no acute distress. somnolent, but orientated HEENT: Head is normocephalic without any lesions or masses noted. Facial features are symmetric. Eyes: Extraocular muscles are intact. Conjunctivae were clear. NECK: Supple without any masses. Trachea midline no deviation. No JVD, CARDIAC: Regular rhythm, regular rate. S1/S2 are heard. No murmurs gallops or rubs. LUNGS: Clear to auscultation bilaterally. No wheeze, rhonchi or rales. No use of accessory muscles on inspiration or expiration. ABDOMEN: Soft, nontender. Nondistended. Bowel sounds heard in all 4 quadrants. No organomegaly or masses. Negative rebound, negative guarding EXTREMITIES: No edema, pulses are equal bilaterally. No cyanosis or clubbing NEUROLOGY: Mood and affect appear appropriate. Cranial nerves II through XII grossly intact. Moving all extremities. Speech is clear Procedures Intubation, extubation L sided VATS, multiple L chest tubes Urinary Catheter: No Date of Removal: Jan 02, 2017 Vascular Central Line Catheter: No A/P Assessment and Plan Altered mental status, lethargy -CT of the brain was negative - indicates that his friend could have gave him Xanax, and there might be more in the room -Urine drug screen was only positive for opiates, no benzodiazepines Status post fall: -Sustained multiple rib fractures, pelvic fractures with sacral fracture, nondisplaced acetabular fracture, thoracic and lumbar transverse process fractures. -Orthopedics cleared patient. Weightbearing as tolerated right lower extremity , toe-touch weightbearing left lower extremity. -Pain management E force research was performed which did indicate patient was on morphine 60 mg every 8 hours and Lortab 10 every 6 hours. Patient states that he did not take the morphine and only took a Lortab Lortab 5 mg every 6 hours as needed for pain Lidoderm patch to area -PT/OT. Pneumonia/ Left lung empyema: -S/p VATS, thoracotomy and decortication with evacuation of left empyema . -S/P Diflucan IV, Zosyn and Vancomycin. Chest tube removed. -Continue Ertapenem IV (tentative stop date: 01/25/2017 per ID) -Patient pulled out his central line. I reconsulted vascular access for PICC line placement but vascular access assoc tells me that patient does not require a PICC and peripheral line can be placed. -Per ID, weekly CBC with diff, CMP, CRP while on antibiotics to be ordered and followed by hospitalist. -Per ID may need follow up imaging. -If any change in clinical condition or questions please call ID ordnance truck installation supervisor for [place]. -Call ID when patient is going to be discharged so DC orders for antibiotics can be placed. Urine discoloration: Resolved -Urinalysis was performed which did indicate hematuria. This is likely secondary to indwelling Guillaume catheter removed. -Patient with condom catheter at this time, urine coloration has improved -Try to avoid use of condom catheter -Urine culture shows no growth for 24 hours Metabolic encephalopathy: Resolved. -Head CT was negative for intracranial hemorrhage. -MRI brain negative for any ischemia or acute abnormality. -EEG with no evidence of seizure activity, moderate encephalopathy. Neuro consult appreciated. Ammonia level normal. Possible delirium secondary to sepsis. Improved. He endorsed difficulty swallowing, but was evaluated by speech therapy who recommends regular diet and thin liquids. -PT/ OT. -Continue antibiotics. Respiratory failure: Resolved -Chest x-ray consistent with pulmonary edema. Echo with normal EF 55%. CT chest negative for PE, showed small bilateral pleural effusions and minimal airspace disease. Intubated for altered mental status, successfully extubated. -Continue Lasix, 20 mg po. -Incentive spirometry. EtOH abuse/dependence: -S/P CIWA protocol. Patient went through DTs. Patient was counseled about complete cessation. Unclear what his baseline is. -Minimize sedating medications. -Cessation resources upon discharge. Elevated LFTs, chronic -AST and alkaline phosphatase have been elevated. -Liver US showing normal echotexture of the liver without focal lesion no ductal dilatation. There is heterogeneous pancreatic echotexture with minimal prominence of the pancreatic duct and small bilateral pleural effusions but otherwise negative. -Hepatitis C antibody reactive. Macrocytic anemia: -Secondary to EtOH dependence. Hgb has been decreasing. Consistent with anemia of chronic disease. Stable 8.6. -Thiamine, folate. Hypertension: Low blood pressure this time, adjust medications -Continue Lopressor 50 mg twice a day, Lisinopril 20 mg daily, and Nifedipine 20 mg q8h. -Clonidine and Vasotec as needed. Diarrhea: -12/31: White blood cell count normal. C. difficile test negative. Patient endorses a history of IBS. Imodium ordered. Prophylaxis: Lovenox, SCDs. Discharge Planning Discharge planning per case management. Last documentation from 12/30/16 indicates requested [facility] to evaluate patient for placement Josh Kraft Jan 09, 2017 09:42
[2017-01-09] MEDS: ERTAPENEM INJ 1,000 MG in SODIUM CHLORIDE 0.9% INJ 100 ML IV SCH (16:18)
[2017-01-09 20:00] VITALS: BP 126/73; PULSE 90; RESP 16; TEMP 97.6; O2SAT 98
[2017-01-09] MEDS: REMOVE OLD NICODERM (NICOTINE) PATCH TD SCH (21:00)
[2017-01-09] MEDS: REMOVE OLD PATCH T-DERMAL SCH (21:16)
[2017-01-09] MEDS: MELATONIN 5 MG TAB PO PRN (22:43)
[2017-01-10] MEDS: NIFEdipine 20 MG CAP PO SCH ×3 (05:55→21:20)
[2017-01-10 08:20] VITALS: BP 113/59; PULSE 83; RESP 16; TEMP 97.3; O2SAT 97
[2017-01-10] MEDS: LACTULOSE SYRUP 20 GM/30 ML CUP PO SCH (08:25)
[2017-01-10] MEDS: CALCIUM CARBONATE 500 MG CHEWABLE TAB CHEW SCH ×2 (08:25→21:21)
[2017-01-10] MEDS: LIDOCAINE HCL 5% PATCH TD SCH (08:25)
[2017-01-10] MEDS: GABAPENTIN 400 MG CAP PO SCH ×3 (08:25→16:30)
[2017-01-10] MEDS: DOCUSATE SODIUM 50 MG/SENNA 8.6 MG TAB PO SCH (08:26)
[2017-01-10] MEDS: FUROSEMIDE 20 MG TAB PO SCH (08:26)
[2017-01-10] MEDS: TAMSULOSIN HCL 0.4 MG CAP PO SCH (08:27)
[2017-01-10] MEDS: METOPROLOL TARTRATE 25 MG TAB PO SCH ×2 (08:27→21:20)
[2017-01-10] MEDS: POTASSIUM CHLORIDE 20 MEQ CONTROLLED RELEASE TAB PO SCH (08:27)
[2017-01-10] MEDS: FOLIC ACID 1 MG TAB PO SCH (08:27)
[2017-01-10] MEDS: FAMOTIDINE 20 MG TAB PO SCH ×2 (08:28→21:20)
[2017-01-10] MEDS: NICOTINE 14 MG/24 HR PATCH TD SCH (08:31)
[2017-01-10] MEDS: ENOXAPARIN SODIUM 40 MG/0.4 ML SYRINGE SQ SCH (08:31)
[2017-01-10] MEDS: SODIUM CHLORIDE 0.9% FLUSH 5 ML FLUSH IVF SCH ×2 (08:42→21:20)
[2017-01-10] MEDS ORDERED: LACTULOSE SYRUP 20 GM/30 ML CUP PO PRN (10:45)
[2017-01-10] MEDS: LOPERAMIDE HCL 2 MG CAP PO PRN (11:22)
--- NOTE | 2017-01-10 11:28 | HHI.PR ---
Subjective Remarks Patient seen and examined today. Patient is nice and alert now that we have decreased his pain medications down. Unfortunately, he is asking to have the medication increased back up again. Nursing staff indicates that he is on bowel regimen with loose stools. He has had C. difficile culture performed with the last 10 days which was negative. Objective Vitals Vital Signs Date Time Temp Pulse Resp B/P Pulse Ox O2 Delivery O2 Flow Rate FiO2 01/09/17 20:00 97.6 90 16 126/73 98 I/O 01/09/17 01/09/17 01/09/17 01/10/17 01/10/17 01/10/17 07:00 15:00 23:00 07:00 15:00 23:00 Intake Total 480 ml 240 ml 480 ml 240 ml Output Total 350 ml 350 ml 450 ml 0 ml 100 ml Balance 130 ml -110 ml 30 ml 240 ml -100 ml Intake Oral 480 ml 240 ml 480 ml 240 ml Output Urine Total 350 ml 350 ml 450 ml 0 ml 100 ml # Bowel Movements 0 2 0 0 Result Diagram: 01/07/1763001/07/17630 Objective Remarks GENERAL: Well-developed, well-nourished, in no acute distress. somnolent, but orientated HEENT: Head is normocephalic without any lesions or masses noted. Facial features are symmetric. Eyes: Extraocular muscles are intact. Conjunctivae were clear. NECK: Supple without any masses. Trachea midline no deviation. No JVD, CARDIAC: Regular rhythm, regular rate. S1/S2 are heard. No murmurs gallops or rubs. LUNGS: Clear to auscultation bilaterally. No wheeze, rhonchi or rales. No use of accessory muscles on inspiration or expiration. ABDOMEN: Soft, nontender. Nondistended. Bowel sounds heard in all 4 quadrants. No organomegaly or masses. Negative rebound, negative guarding EXTREMITIES: No edema, pulses are equal bilaterally. No cyanosis or clubbing NEUROLOGY: Mood and affect appear appropriate. Cranial nerves II through XII grossly intact. Moving all extremities. Speech is clear Procedures Intubation, extubation L sided VATS, multiple L chest tubes Urinary Catheter: No Date of Removal: Jan 02, 2017 Vascular Central Line Catheter: No A/P Assessment and Plan Altered mental status, lethargy, improved -CT of the brain was negative - indicates that his friend could have gave him Xanax, and there might be more in the room -Urine drug screen was only positive for opiates, no benzodiazepines -Mentation significantly improved with the decrease in pain medication. Status post fall: -Sustained multiple rib fractures, pelvic fractures with sacral fracture, nondisplaced acetabular fracture, thoracic and lumbar transverse process fractures. -Orthopedics cleared patient. Weightbearing as tolerated right lower extremity , toe-touch weightbearing left lower extremity. -Pain management E force research was performed which did indicate patient was on morphine 60 mg every 8 hours and Lortab 10 every 6 hours. Patient states that he did not take the morphine and only took a Lortab Lortab 5 mg every 6 hours as needed for pain, maintain this dose since patient is now alert and orientated Lidoderm patch to area -PT/OT. Pneumonia/ Left lung empyema: -S/p VATS, thoracotomy and decortication with evacuation of left empyema . -S/P Diflucan IV, Zosyn and Vancomycin. Chest tube removed. -Continue Ertapenem IV (tentative stop date: 01/25/2017 per ID) -Patient pulled out his central line. I reconsulted vascular access for PICC line placement but vascular funeral pre arrangement specialist tells me that patient does not require a PICC and peripheral line can be placed. -Per ID, weekly CBC with diff, CMP, CRP while on antibiotics to be ordered and followed by hospitalist. -Per ID may need follow up imaging. -If any change in clinical condition or questions please call ID provider relations representative for [place]. -Call ID when patient is going to be discharged so DC orders for antibiotics can be placed. Urine discoloration: Resolved -Urinalysis was performed which did indicate hematuria. This is likely secondary to indwelling Guillaume catheter removed. -Patient with condom catheter at this time, urine coloration has improved -Try to avoid use of condom catheter -Urine culture shows no growth for 24 hours Metabolic encephalopathy: Resolved. -Head CT was negative for intracranial hemorrhage. -MRI brain negative for any ischemia or acute abnormality. -EEG with no evidence of seizure activity, moderate encephalopathy. Neuro consult appreciated. Ammonia level normal. Possible delirium secondary to sepsis. Improved. He endorsed difficulty swallowing, but was evaluated by speech therapy who recommends regular diet and thin liquids. -PT/ OT. -Continue antibiotics. Respiratory failure: Resolved -Chest x-ray consistent with pulmonary edema. Echo with normal EF 55%. CT chest negative for PE, showed small bilateral pleural effusions and minimal airspace disease. Intubated for altered mental status, successfully extubated. -Continue Lasix, 20 mg po. -Incentive spirometry. EtOH abuse/dependence: -S/P CIWA protocol. Patient went through DTs. Patient was counseled about complete cessation. Unclear what his baseline is. -Minimize sedating medications. -Cessation resources upon discharge. Elevated LFTs, chronic -AST and alkaline phosphatase have been elevated. -Liver US showing normal echotexture of the liver without focal lesion no ductal dilatation. There is heterogeneous pancreatic echotexture with minimal prominence of the pancreatic duct and small bilateral pleural effusions but otherwise negative. -Hepatitis C antibody reactive. Macrocytic anemia: -Secondary to EtOH dependence. Hgb has been decreasing. Consistent with anemia of chronic disease. Stable 8.6. -Thiamine, folate. Hypertension: Low blood pressure this time, adjust medications -Continue Lopressor 50 mg twice a day, Lisinopril 20 mg daily, and Nifedipine 20 mg q8h. -Clonidine and Vasotec as needed. Diarrhea: -12/31: White blood cell count normal. C. difficile test negative. Patient endorses a history of IBS. Imodium ordered. Prophylaxis: Lovenox, SCDs. Discharge Planning Discharge planning per case management. Last documentation from 12/30/16 indicates requested [facility] to evaluate patient for placement Josh Kraft Jan 10, 2017 11:28
[2017-01-10] MEDS: ERTAPENEM INJ 1,000 MG in SODIUM CHLORIDE 0.9% INJ 100 ML IV SCH (16:31)
[2017-01-10 20:00] VITALS: BP 148/74; PULSE 88; RESP 20; TEMP 98; O2SAT 100
[2017-01-10] MEDS: REMOVE OLD PATCH T-DERMAL SCH (21:22)
[2017-01-10] MEDS: REMOVE OLD NICODERM (NICOTINE) PATCH TD SCH (21:23)
[2017-01-10] MEDS: MELATONIN 5 MG TAB PO PRN (22:50)
[2017-01-11] MEDS: NIFEdipine 20 MG CAP PO SCH ×3 (06:00→21:15)
[2017-01-11 08:00] VITALS: BP 116/66; PULSE 86; RESP 16; TEMP 97; O2SAT 95
[2017-01-11] MEDS: ENOXAPARIN SODIUM 40 MG/0.4 ML SYRINGE SQ SCH (08:05)
[2017-01-11] MEDS: NICOTINE 14 MG/24 HR PATCH TD SCH (08:07)
[2017-01-11] MEDS: LIDOCAINE HCL 5% PATCH TD SCH (08:07)
[2017-01-11] MEDS: METOPROLOL TARTRATE 25 MG TAB PO SCH ×2 (08:08→21:15)
[2017-01-11] MEDS: FAMOTIDINE 20 MG TAB PO SCH ×2 (08:08→21:14)
[2017-01-11] MEDS: FOLIC ACID 1 MG TAB PO SCH (08:08)
[2017-01-11] MEDS: FUROSEMIDE 20 MG TAB PO SCH (08:09)
[2017-01-11] MEDS: POTASSIUM CHLORIDE 20 MEQ CONTROLLED RELEASE TAB PO SCH (08:09)
[2017-01-11] MEDS: TAMSULOSIN HCL 0.4 MG CAP PO SCH (08:09)
[2017-01-11] MEDS: CALCIUM CARBONATE 500 MG CHEWABLE TAB CHEW SCH ×2 (08:09→21:15)
[2017-01-11] MEDS: DOCUSATE SODIUM 50 MG/SENNA 8.6 MG TAB PO SCH (08:09)
[2017-01-11] MEDS: GABAPENTIN 400 MG CAP PO SCH ×3 (08:09→16:33)
[2017-01-11] MEDS: SODIUM CHLORIDE 0.9% FLUSH 5 ML FLUSH IVF SCH ×2 (08:09→21:13)
--- NOTE | 2017-01-11 13:08 | HHI.PR ---
Subjective Remarks Follow-up for empyema. No acute complaints. Objective Vitals Vital Signs Date Time Temp Pulse Resp B/P Pulse Ox O2 Delivery O2 Flow Rate FiO2 01/11/17 08:00 97.0 86 16 116/66 95 01/10/17 20:00 98.0 88 20 148/74 100 I/O 01/10/17 01/10/17 01/10/17 01/11/17 01/11/17 01/11/17 07:00 15:00 23:00 07:00 15:00 23:00 Intake Total 240 ml 900 ml 780 ml Output Total 0 ml 100 ml 300 ml 700 ml Balance 240 ml -100 ml 600 ml 80 ml Intake Oral 240 ml 900 ml 780 ml Output Urine Total 0 ml 100 ml 300 ml 700 ml # Voids 3 # Bowel Movements 0 0 0 Result Diagram: 01/07/1763001/07/17 06 Objective Remarks GENERAL: Well-developed patient in no apparent distress sitting in recliner. CARDIOVASCULAR: Regular rate and rhythm. RESPIRATORY: No accessory muscle use. Diminished breath sounds over left anterior chest, but clear. NEUROLOGICAL: Awake and alert. Normal speech. PSYCHIATRIC: Appropriate mood and affect; insight and judgment normal. Procedures Intubation, extubation L sided VATS, multiple L chest tubes Urinary Catheter: No Date of Removal: Jan 02, 2017 Vascular Central Line Catheter: No A/P Problem List: (1) Fall from ladder ICD Code: W11.XXXA Status: Acute (2) Metabolic encephalopathy ICD Code: G93.41 Status: Resolved (3) Hypercapnic respiratory failure ICD Code: J96.92 Status: Resolved (4) Traumatic pneumothorax ICD Code: S27.0XXA Status: Acute (5) Lung contusion ICD Code: S27.329A Status: Acute (6) Multiple rib fractures ICD Code: S22.49XA Status: Acute (7) Fracture of transverse process of thoracic vertebra ICD Code: S22.009A Status: Acute (8) Lumbar transverse process fracture ICD Code: S32.008A Status: Acute (9) Left acetabular fracture ICD Code: S32.402A Status: Acute (10) Bilateral pubic rami fractures ICD Code: S32.591A Status: Acute (11) Sacral fracture, closed ICD Code: S32.10XA Status: Acute (12) HTN (hypertension) ICD Code: I10 Status: Acute (13) EtOH dependence ICD Code: F10.20 Status: Acute Assessment and Plan 58-year-old gentleman reportedly fell 20 feet off from a tree onto his back without loss of consciousness. He was brought in as a trauma alert. Patient arrived alert with mild confusion complaining of back pain and left chest pain. Patient had multiple left-sided rib fractures with hemopneumothorax. Patient also had multiple pelvic fractures with sacral fracture. Initially managed in critical care, improved clinically and was transferred to medical-surgical floor. The pt then had altered mental status and was transferred to the ICU and intubated. Antibiotics were adjusted, he was evaluated by neurology, he was extubated and is now back on med-surg floor and stable. Altered mental status, lethargy, improved -CT of the brain was negative - indicates that his friend could have given him Xanax, and there might be more in the room per previous note -Urine drug screen was only positive for opiates, no benzodiazepines -Mentation significantly improved with the decrease in pain medication. Tea-colored urine: Resolved. -Urinalysis was performed which did indicate hematuria. This is likely secondary to indwelling Guillaume catheter removed. -Patient with condom catheter at this time, urine coloration has improved -Try to avoid use of condom catheter -Urine culture shows no growth for 48 hours Status post fall: -Sustained multiple rib fractures, pelvic fractures with sacral fracture, nondisplaced acetabular fracture, thoracic and lumbar transverse process fractures. -Orthopedics cleared patient. Weightbearing as tolerated right lower extremity , toe-touch weightbearing left lower extremity. -Pain management with a bowel regimen. Lortab 5 mg every 6 hours as needed for pain. Lidoderm patch to area -PT/OT. Metabolic encephalopathy: Resolved. -Head CT was negative for intracranial hemorrhage. -MRI brain negative for any ischemia or acute abnormality. -EEG with no evidence of seizure activity, moderate encephalopathy. Neuro consult appreciated. Ammonia level normal. Possible delirium secondary to sepsis. Improved. He endorsed difficulty swallowing, but was evaluated by speech therapy who recommends regular diet and thin liquids. -PT/ OT. -Continue antibiotics. Pneumonia/ Left lung empyema: -S/p VATS, thoracotomy and decortication with evacuation of left empyema . -S/P Diflucan IV, Zosyn and Vancomycin. Chest tube removed. -Continue Ertapenem IV (tentative stop date: 01/25/2017 per ID) -Patient pulled out his central line. I reconsulted vascular access for PICC line placement but vascular offender job retention specialist tells me that patient does not require a PICC and peripheral line can be placed. -Per ID, weekly CBC with diff, CMP, CRP while on antibiotics to be ordered and followed by hospitalist. Labs ordered for 01/07/17. -Per ID may need follow up imaging. -If any change in clinical condition or questions please call ID crime prevention worker for [place]. -Call ID when patient is going to be discharged so DC orders for antibiotics can be placed. -Pain control with a bowel regimen. -Duoneb/albuterol treatments as needed. -Monitor respiratory status, continue Acapella. -PT/OT. -RT to monitor pulse oximetry. 98% on 2L O2 this morning. Respiratory failure: Resolved. -Chest x-ray consistent with pulmonary edema. Echo with normal EF 55%. CT chest negative for PE, showed small bilateral pleural effusions and minimal airspace disease. Intubated for altered mental status, successfully extubated. -Continue Lasix, 20 mg po. -Monitor I/O's. -Oxygen and nebs as needed. -Incentive spirometry. EtOH abuse/dependence: -S/P CIWA protocol. Patient went through DTs. Patient was counseled about complete cessation. Unclear what his baseline is. -Minimize sedating medications. -Cessation resources upon discharge. Elevated LFTs -AST and alkaline phosphatase have been elevated. -Liver US showing normal echotexture of the liver without focal lesion no ductal dilatation. There is heterogeneous pancreatic echotexture with minimal prominence of the pancreatic duct and small bilateral pleural effusions but otherwise negative. -Hepatitis C antibody reactive. Macrocytic anemia: -Secondary to EtOH dependence. Hgb has been decreasing. Consistent with anemia of chronic disease. Stable at 10.9. -Thiamine, folate. HTN: -Continue Lopressor 50 mg twice a day, Lisinopril 20 mg daily, and Nifedipine 20 mg q8h. -Clonidine and Vasotec as needed. Diarrhea: -12/31: White blood cell count normal. C. difficile test negative. Patient endorses a history of IBS. Continue Imodium. Prophylaxis: Lovenox, SCDs. Discharge Planning Patient will apparently not give up check to [facility] for placement; his daughter is supposed to speak with him regarding this. Problem Qualifiers (1) Fall from ladder: Qualified Code: W11.XXXA - Fall from ladder, initial encounter (2) Hypercapnic respiratory failure: Qualified Code: J96.02 - Acute respiratory failure with hypercapnia (3) Traumatic pneumothorax: Qualified Code: S27.0XXA - Traumatic pneumothorax, initial encounter (4) Lung contusion: Qualified Code: S27.321A - Contusion of left lung, initial encounter (5) Multiple rib fractures: Qualified Code: S22.42XA - Closed fracture of multiple ribs of left side, initial encounter (6) EtOH dependence: Jazzmine Proctor Jan 11, 2017 13:08
[2017-01-11] MEDS: ERTAPENEM INJ 1,000 MG in SODIUM CHLORIDE 0.9% INJ 100 ML IV SCH (16:41)
[2017-01-11 20:00] VITALS: BP 137/76; PULSE 83; RESP 16; TEMP 99.3; O2SAT 100
[2017-01-11] MEDS: REMOVE OLD PATCH T-DERMAL SCH (21:00)
[2017-01-11] MEDS: REMOVE OLD NICODERM (NICOTINE) PATCH TD SCH (21:00)
[2017-01-11] MEDS: LOPERAMIDE HCL 2 MG CAP PO PRN (21:14)
[2017-01-11] MEDS: MELATONIN 5 MG TAB PO PRN (21:14)
[2017-01-12] MEDS: NIFEdipine 20 MG CAP PO SCH ×3 (06:10→21:50)
[2017-01-12 08:00] VITALS: BP 140/89; PULSE 91; RESP 19; TEMP 97.4; O2SAT 96
[2017-01-12] MEDS: POTASSIUM CHLORIDE 20 MEQ CONTROLLED RELEASE TAB PO SCH (08:34)
[2017-01-12] MEDS: CALCIUM CARBONATE 500 MG CHEWABLE TAB CHEW SCH ×2 (08:34→21:07)
[2017-01-12] MEDS: TAMSULOSIN HCL 0.4 MG CAP PO SCH (08:34)
[2017-01-12] MEDS: METOPROLOL TARTRATE 25 MG TAB PO SCH ×2 (08:34→21:08)
[2017-01-12] MEDS: NICOTINE 14 MG/24 HR PATCH TD SCH (08:34)
[2017-01-12] MEDS: GABAPENTIN 400 MG CAP PO SCH ×3 (08:34→17:26)
[2017-01-12] MEDS: DOCUSATE SODIUM 50 MG/SENNA 8.6 MG TAB PO SCH (08:34)
[2017-01-12] MEDS: FAMOTIDINE 20 MG TAB PO SCH ×2 (08:34→21:08)
[2017-01-12] MEDS: FUROSEMIDE 20 MG TAB PO SCH (08:34)
[2017-01-12] MEDS: FOLIC ACID 1 MG TAB PO SCH (08:35)
[2017-01-12] MEDS: LIDOCAINE HCL 5% PATCH TD SCH (08:36)
[2017-01-12] MEDS: ACETAMINOPHEN/HYDROcodone 325 MG/5 MG TAB PO PRN ×2 (08:45→17:43)
--- NOTE | 2017-01-12 11:25 | HHI.PR ---
Subjective Remarks Follow-up on patient with trauma and empyema. Patient seen and examined. Pain controlled with [place]. Patient has no acute complaints at this time. Objective Vitals Vital Signs Date Time Temp Pulse Resp B/P Pulse Ox O2 Delivery O2 Flow Rate FiO2 01/12/17 08:00 97.4 91 19 140/89 96 01/11/17 20:00 99.3 83 16 137/76 100 I/O 01/11/17 01/11/17 01/11/17 01/12/17 01/12/17 01/12/17 07:00 15:00 23:00 07:00 15:00 23:00 Intake Total 780 ml 1040 ml 420 ml Output Total 700 ml 350 ml 400 ml Balance 80 ml 690 ml 20 ml Intake Oral 780 ml 1040 ml 420 ml Output Urine Total 700 ml 350 ml 400 ml Stool Total 0 ml # Voids 3 # Bowel Movements 0 0 Objective Remarks GENERAL: Well-developed patient in no apparent distress. Lying in hospital bed. Appears comfortable. A&Ox3. CARDIOVASCULAR: Regular rate and rhythm. RESPIRATORY: No accessory muscle use. Diminished breath sounds over left anterior chest, but clear. NEUROLOGICAL: Awake and alert. Normal speech. PSYCHIATRIC: Appropriate mood and affect; insight and judgment normal. Procedures Intubation, extubation L sided VATS, multiple L chest tubes Urinary Catheter: No Date of Removal: Jan 02, 2017 Vascular Central Line Catheter: No Procedures Intubation, extubation L sided VATS, multiple L chest tubes Medications and IVs Current Medications Medications (Trade) Dose Ordered Sig/Jason Route Start Time Stop Time Status Last Admin (Pill Splitter) 1 ea UNSCH PRN OTHER 11/25/16 22:45 (Habitrol 14 Mg Patch.24 Hr) 1 patch DAILY TD 11/26/16 10:00 01/12/17 08:34 Miscellaneous Information 1 HS TD 11/26/16 21:00 01/11/17 21:00 (NS Flush) 2 ml UNSCH PRN IVF 12/05/16 12:15 12/26/16 14:43 (NS Flush) 2 ml BID IVF 12/05/16 12:15 01/11/17 21:13 (Narcan Inj) 0.4 mg UNSCH PRN IV 12/05/16 12:15 (Lovenox Inj) 40 mg Q24H SQ 12/06/16 11:00 01/11/17 08:05 (Melatonin) 5 mg HS PRN PO 12/07/16 00:15 01/11/17 21:14 (ZyPREXA ZYDIS ODT) 5 mg HS PRN PO 12/07/16 00:15 01/06/17 23:11 (Neurontin) 400 mg TID PO 12/14/16 13:00 01/12/17 08:34 (Pepcid) 20 mg BID PO 12/14/16 21:00 01/12/17 08:34 (Procardia) 20 mg Q8HR PO 12/18/16 14:00 01/12/17 06:10 (Tylenol) 650 mg Q4H PRN PO 12/19/16 12:30 12/22/16 13:00 (KCl) 40 meq DAILY PO 12/20/16 09:00 01/12/17 08:34 Calcium Carbonate 500 mg 500 mg Q12HR CHEW 12/20/16 09:00 01/12/17 08:34 (INVanz INJ/NS Inj) 100 ml @ 200 mls/hr Q24H IV 12/24/16 16:00 01/25/17 15:59 01/11/17 16:41 (Folate) 1 mg DAILY PO 12/28/16 11:45 01/12/17 08:35 (Lasix) 20 mg DAILY PO 12/29/16 09:00 01/12/17 08:34 (Flomax) 0.4 mg DAILY PO 01/02/17 17:23 01/12/17 08:34 (Lopressor) 25 mg Q12HR PO 01/04/17 21:00 01/12/17 08:34 (Zofran Odt) 4 mg Q6H PRN PO 01/04/17 15:00 (Lidoderm 5% Patch.12 Hr) 1 patch DAILY TD 01/08/17 09:00 01/12/17 08:36 Miscellaneous Information 1 HS T-DERMAL 01/08/17 21:00 01/11/17 21:00 ([place] 5-325 Mg) 1 tab Q6H PRN PO 01/09/17 09:45 01/12/17 08:45 (Roseanne-Colace) 1 tab DAILY PO 01/11/17 09:00 01/12/17 08:34 (Lactulose Liq) 30 ml DAILY PRN PO 01/10/17 10:45 (Imodium) 2 mg Q6H PRN PO 01/10/17 10:45 01/11/17 21:14 Date of Removal: Jan 02, 2017 A/P Problem List: (1) Fall from ladder ICD Code: W11.XXXA Status: Acute (2) Metabolic encephalopathy ICD Code: G93.41 Status: Resolved (3) Hypercapnic respiratory failure ICD Code: J96.92 Status: Resolved (4) Traumatic pneumothorax ICD Code: S27.0XXA Status: Acute (5) Lung contusion ICD Code: S27.329A Status: Acute (6) Multiple rib fractures ICD Code: S22.49XA Status: Acute (7) Fracture of transverse process of thoracic vertebra ICD Code: S22.009A Status: Acute (8) Lumbar transverse process fracture ICD Code: S32.008A Status: Acute (9) Left acetabular fracture ICD Code: S32.402A Status: Acute (10) Bilateral pubic rami fractures ICD Code: S32.591A Status: Acute (11) Sacral fracture, closed ICD Code: S32.10XA Status: Acute (12) HTN (hypertension) ICD Code: I10 Status: Acute (13) EtOH dependence ICD Code: F10.20 Status: Acute Assessment and Plan 58-year-old gentleman reportedly fell 20 feet off from a tree onto his back without loss of consciousness. He was brought in as a trauma alert. Patient arrived alert with mild confusion complaining of back pain and left chest pain. Patient had multiple left-sided rib fractures with hemopneumothorax. Patient also had multiple pelvic fractures with sacral fracture. Initially managed in critical care, improved clinically and was transferred to medical-surgical floor. The pt then had altered mental status and was transferred to the ICU and intubated. Antibiotics were adjusted, he was evaluated by neurology, he was extubated and is now back on med-surg floor and stable. Altered mental status, lethargy, Resolved -CT of the brain was negative - indicates that his friend could have given him Xanax, and there might be more in the room per previous note -Urine drug screen was only positive for opiates, no benzodiazepines -Mentation significantly improved with the decrease in pain medication. Tea-colored urine: Resolved. -Urinalysis was performed which did indicate hematuria. This is likely secondary to indwelling Guillaume catheter removed. -Patient with condom catheter at this time, urine coloration has improved -Try to avoid use of condom catheter -Urine culture shows no growth for 48 hours Status post fall: -Sustained multiple rib fractures, pelvic fractures with sacral fracture, nondisplaced acetabular fracture, thoracic and lumbar transverse process fractures. -Orthopedics cleared patient. Weightbearing as tolerated right lower extremity , toe-touch weightbearing left lower extremity. -Pain management with a bowel regimen. Lortab 5 mg every 6 hours as needed for pain. Lidoderm patch to area -PT/OT. Metabolic encephalopathy: Resolved. -Head CT was negative for intracranial hemorrhage. -MRI brain negative for any ischemia or acute abnormality. -EEG with no evidence of seizure activity, moderate encephalopathy. Neuro consult appreciated. Ammonia level normal. Possible delirium secondary to sepsis. Improved. He endorsed difficulty swallowing, but was evaluated by speech therapy who recommends regular diet and thin liquids. -PT/ OT. -Continue antibiotics. Pneumonia/ Left lung empyema: -S/p VATS, thoracotomy and decortication with evacuation of left empyema . -S/P Diflucan IV, Zosyn and Vancomycin. Chest tube removed. -Continue Ertapenem IV (tentative stop date: 01/25/2017 per ID) -Patient pulled out his central line. I reconsulted vascular access for PICC line placement but vascular hostess tells me that patient does not require a PICC and peripheral line can be placed. -Per ID, weekly CBC with diff, CMP, CRP while on antibiotics to be ordered and followed by hospitalist. Labs ordered for 01/14/17. -Per ID may need follow up imaging. -If any change in clinical condition or questions please call ID home improvement contractor for [place]. -Call ID when patient is going to be discharged so DC orders for antibiotics can be placed. -Pain control with a bowel regimen. -Duoneb/albuterol treatments as needed. -Monitor respiratory status, continue Acapella. -PT/OT. -RT to monitor pulse oximetry. 98% on 2L O2 this morning. Respiratory failure: Resolved. -Chest x-ray consistent with pulmonary edema. Echo with normal EF 55%. CT chest negative for PE, showed small bilateral pleural effusions and minimal airspace disease. Intubated for altered mental status, successfully extubated. -Continue Lasix, 20 mg po. -Monitor I/O's. -Oxygen and nebs as needed. -Incentive spirometry. EtOH abuse/dependence: -S/P CIDE protocol. Patient went through DTs. Patient was counseled about complete cessation. Unclear what his baseline is. -Minimize sedating medications. -Cessation resources upon discharge. Elevated LFTs -AST and alkaline phosphatase have been elevated. Slight trend upwards. Repeat studies on 01/14. -Liver US showing normal echotexture of the liver without focal lesion no ductal dilatation. There is heterogeneous pancreatic echotexture with minimal prominence of the pancreatic duct and small bilateral pleural effusions but otherwise negative. -Hepatitis C antibody reactive. Macrocytic anemia: -Secondary to EtOH dependence. Hgb has been decreasing. Consistent with anemia of chronic disease. Stable at 10.9. -Thiamine, folate. HTN: -Continue Lopressor 50 mg twice a day, Lisinopril 20 mg daily, and Nifedipine 20 mg q8h. -Clonidine and Vasotec as needed. Diarrhea: -12/31: White blood cell count normal. C. difficile test negative. Patient endorses a history of IBS. Continue Imodium. Prophylaxis: Lovenox, SCDs. Discharge Planning Patient will apparently not give up check to [facility] for placement; his daughter is supposed to speak with him regarding this. Problem Qualifiers (1) Fall from ladder: Qualified Code: W11.XXXA - Fall from ladder, initial encounter (2) Hypercapnic respiratory failure: Qualified Code: J96.02 - Acute respiratory failure with hypercapnia (3) Traumatic pneumothorax: Qualified Code: S27.0XXA - Traumatic pneumothorax, initial encounter (4) Lung contusion: Qualified Code: S27.321A - Contusion of left lung, initial encounter (5) Multiple rib fractures: Qualified Code: S22.42XA - Closed fracture of multiple ribs of left side, initial encounter (6) EtOH dependence: Rasheeda Garcia Jan 12, 2017 11:25
[2017-01-12] MEDS: ENOXAPARIN SODIUM 40 MG/0.4 ML SYRINGE SQ SCH (14:07)
[2017-01-12] MEDS: SODIUM CHLORIDE 0.9% FLUSH 5 ML FLUSH IVF SCH ×2 (14:07→21:08)
[2017-01-12] MEDS: ERTAPENEM INJ 1,000 MG in SODIUM CHLORIDE 0.9% INJ 100 ML IV SCH (17:26)
[2017-01-12 20:00] VITALS: BP 121/67; PULSE 81; RESP 21; TEMP 98.3; O2SAT 98
[2017-01-12] MEDS: REMOVE OLD NICODERM (NICOTINE) PATCH TD SCH (21:00)
[2017-01-12] MEDS: REMOVE OLD PATCH T-DERMAL SCH (21:00)
[2017-01-12] MEDS: MELATONIN 5 MG TAB PO PRN (21:50)
[2017-01-13] MEDS: NIFEdipine 20 MG CAP PO SCH ×3 (05:41→21:06)
[2017-01-13 08:00] VITALS: BP 128/72; PULSE 84; RESP 16; TEMP 97.2; O2SAT 98
[2017-01-13] MEDS: LIDOCAINE HCL 5% PATCH TD SCH (09:03)
[2017-01-13] MEDS: NICOTINE 14 MG/24 HR PATCH TD SCH (09:03)
[2017-01-13] MEDS: SODIUM CHLORIDE 0.9% FLUSH 5 ML FLUSH IVF SCH ×2 (09:04→21:08)
[2017-01-13] MEDS: POTASSIUM CHLORIDE 20 MEQ CONTROLLED RELEASE TAB PO SCH (09:05)
[2017-01-13] MEDS: GABAPENTIN 400 MG CAP PO SCH ×3 (09:05→17:17)
[2017-01-13] MEDS: ACETAMINOPHEN/HYDROcodone 325 MG/5 MG TAB PO PRN ×2 (09:05→17:01)
[2017-01-13] MEDS: FUROSEMIDE 20 MG TAB PO SCH (09:06)
[2017-01-13] MEDS: METOPROLOL TARTRATE 25 MG TAB PO SCH ×2 (09:06→21:05)
[2017-01-13] MEDS: FAMOTIDINE 20 MG TAB PO SCH ×2 (09:06→21:05)
[2017-01-13] MEDS: TAMSULOSIN HCL 0.4 MG CAP PO SCH (09:06)
[2017-01-13] MEDS: DOCUSATE SODIUM 50 MG/SENNA 8.6 MG TAB PO SCH (09:06)
[2017-01-13] MEDS: CALCIUM CARBONATE 500 MG CHEWABLE TAB CHEW SCH ×2 (09:06→21:05)
[2017-01-13] MEDS: FOLIC ACID 1 MG TAB PO SCH (09:06)
[2017-01-13] MEDS: ENOXAPARIN SODIUM 40 MG/0.4 ML SYRINGE SQ SCH (11:00)
[2017-01-13] MEDS: ERTAPENEM INJ 1,000 MG in SODIUM CHLORIDE 0.9% INJ 100 ML IV SCH ×2 (16:00→18:17)
--- NOTE | 2017-01-13 18:32 | HHI.PR ---
Subjective Remarks Follow-up on patient with history of trauma and empyema. Patient seen and examined today. He has no acute medical issues at this time. No complaints of chest pain or shortness of breath. Objective Vitals Vital Signs Date Time Temp Pulse Resp B/P Pulse Ox O2 Delivery O2 Flow Rate FiO2 01/13/17 18:09 18 01/13/17 08:00 97.2 84 16 128/72 98 01/12/17 20:00 98.3 81 21 121/67 98 I/O 01/12/17 01/12/17 01/12/17 01/13/17 01/13/17 01/13/17 07:00 15:00 23:00 07:00 15:00 23:00 Intake Total 420 ml 240 ml 240 ml 620 ml Output Total 400 ml 400 ml 350 ml 700 ml 600 ml Balance 20 ml -400 ml -110 ml -460 ml 20 ml Intake Oral 420 ml 240 ml 240 ml 620 ml Output Urine Total 400 ml 400 ml 350 ml 700 ml 600 ml # Bowel Movements 0 3 Objective Remarks GENERAL: Well-developed patient in no apparent distress. Lying in hospital bed. Appears comfortable. A&Ox3. Friend visiting at the bedside. CARDIOVASCULAR: Regular rate and rhythm. RESPIRATORY: No accessory muscle use. Diminished breath sounds over left anterior chest, but clear. NEUROLOGICAL: Awake and alert. Normal speech. PSYCHIATRIC: Appropriate mood and affect; insight and judgment normal. Procedures Intubation, extubation L sided VATS, multiple L chest tubes Urinary Catheter: No Date of Removal: Jan 02, 2017 Vascular Central Line Catheter: No Procedures Intubation, extubation L sided VATS, multiple L chest tubes Medications and IVs Current Medications Medications (Trade) Dose Ordered Sig/Jason Route Start Time Stop Time Status Last Admin (Pill Splitter) 1 ea UNSCH PRN OTHER 11/25/16 22:45 (Habitrol 14 Mg Patch.24 Hr) 1 patch DAILY TD 11/26/16 10:00 01/13/17 09:03 Miscellaneous Information 1 HS TD 11/26/16 21:00 01/12/17 21:00 (NS Flush) 2 ml UNSCH PRN IVF 12/05/16 12:15 12/26/16 14:43 (NS Flush) 2 ml BID IVF 12/05/16 12:15 01/13/17 09:04 (Narcan Inj) 0.4 mg UNSCH PRN IV 12/05/16 12:15 (Lovenox Inj) 40 mg Q24H SQ 12/06/16 11:00 01/13/17 11:00 (Melatonin) 5 mg HS PRN PO 12/07/16 00:15 01/12/17 21:50 (ZyPREXA ZYDIS ODT) 5 mg HS PRN PO 12/07/16 00:15 01/06/17 23:11 (Neurontin) 400 mg TID PO 12/14/16 13:00 01/13/17 17:17 (Pepcid) 20 mg BID PO 12/14/16 21:00 01/13/17 09:06 (Procardia) 20 mg Q8HR PO 12/18/16 14:00 01/13/17 14:12 (Tylenol) 650 mg Q4H PRN PO 12/19/16 12:30 12/22/16 13:00 (KCl) 40 meq DAILY PO 12/20/16 09:00 01/13/17 09:05 Calcium Carbonate 500 mg 500 mg Q12HR CHEW 12/20/16 09:00 01/13/17 09:06 (INVanz INJ/NS Inj) 100 ml @ 200 mls/hr Q24H IV 12/24/16 16:00 01/25/17 15:59 01/13/17 18:17 (Folate) 1 mg DAILY PO 12/28/16 11:45 01/13/17 09:06 (Lasix) 20 mg DAILY PO 12/29/16 09:00 01/13/17 09:06 (Flomax) 0.4 mg DAILY PO 01/02/17 17:23 01/13/17 09:06 (Lopressor) 25 mg Q12HR PO 01/04/17 21:00 01/13/17 09:06 (Zofran Odt) 4 mg Q6H PRN PO 01/04/17 15:00 (Lidoderm 5% Patch.12 Hr) 1 patch DAILY TD 01/08/17 09:00 01/13/17 09:03 Miscellaneous Information 1 HS T-DERMAL 01/08/17 21:00 01/12/17 21:00 (Dennard 5-325 Mg) 1 tab Q6H PRN PO 01/09/17 09:45 01/13/17 17:01 (Roseanne-Colace) 1 tab DAILY PO 01/11/17 09:00 01/13/17 09:06 (Lactulose Liq) 30 ml DAILY PRN PO 01/10/17 10:45 (Imodium) 2 mg Q6H PRN PO 01/10/17 10:45 01/11/17 21:14 Date of Removal: Jan 02, 2017 A/P Problem List: (1) Fall from ladder ICD Code: W11.XXXA Status: Acute (2) Metabolic encephalopathy ICD Code: G93.41 Status: Resolved (3) Hypercapnic respiratory failure ICD Code: J96.92 Status: Resolved (4) Traumatic pneumothorax ICD Code: S27.0XXA Status: Acute (5) Lung contusion ICD Code: S27.329A Status: Acute (6) Multiple rib fractures ICD Code: S22.49XA Status: Acute (7) Fracture of transverse process of thoracic vertebra ICD Code: S22.009A Status: Acute (8) Lumbar transverse process fracture ICD Code: S32.008A Status: Acute (9) Left acetabular fracture ICD Code: S32.402A Status: Acute (10) Bilateral pubic rami fractures ICD Code: S32.591A Status: Acute (11) Sacral fracture, closed ICD Code: S32.10XA Status: Acute (12) HTN (hypertension) ICD Code: I10 Status: Acute (13) EtOH dependence ICD Code: F10.20 Status: Acute Assessment and Plan 58-year-old gentleman reportedly fell 20 feet off from a tree onto his back without loss of consciousness. He was brought in as a trauma alert. Patient arrived alert with mild confusion complaining of back pain and left chest pain. Patient had multiple left-sided rib fractures with hemopneumothorax. Patient also had multiple pelvic fractures with sacral fracture. Initially managed in critical care, improved clinically and was transferred to medical-surgical floor. The pt then had altered mental status and was transferred to the ICU and intubated. Antibiotics were adjusted, he was evaluated by neurology, he was extubated and is now back on med-surg floor and stable. Altered mental status, lethargy, Resolved -CT of the brain was negative - indicates that his friend could have given him Xanax, and there might be more in the room per previous note -Urine drug screen was only positive for opiates, no benzodiazepines -Mentation significantly improved with the decrease in pain medication. Tea-colored urine: Resolved. -Urinalysis was performed which did indicate hematuria. This is likely secondary to indwelling Guillaume catheter removed. -Patient with condom catheter at this time, urine coloration has improved -Try to avoid use of condom catheter -Urine culture shows no growth for 48 hours Status post fall: -Sustained multiple rib fractures, pelvic fractures with sacral fracture, nondisplaced acetabular fracture, thoracic and lumbar transverse process fractures. -Orthopedics cleared patient. Weightbearing as tolerated right lower extremity , toe-touch weightbearing left lower extremity. -Pain management with a bowel regimen. Lortab 5 mg every 6 hours as needed for pain. Lidoderm patch to area -PT/OT. Metabolic encephalopathy: Resolved. -Head CT was negative for intracranial hemorrhage. -MRI brain negative for any ischemia or acute abnormality. -EEG with no evidence of seizure activity, moderate encephalopathy. Neuro consult appreciated. Ammonia level normal. Possible delirium secondary to sepsis. Improved. He endorsed difficulty swallowing, but was evaluated by speech therapy who recommends regular diet and thin liquids. -PT/ OT. -Continue antibiotics. Pneumonia/ Left lung empyema: -S/p VATS, thoracotomy and decortication with evacuation of left empyema . -S/P Diflucan IV, Zosyn and Vancomycin. Chest tube removed. -Continue Ertapenem IV (tentative stop date: 01/25/2017 per ID) -Patient pulled out his central line. I reconsulted vascular access for PICC line placement but vascular topographical surveyor tells me that patient does not require a PICC and peripheral line can be placed. -Per ID, weekly CBC with diff, CMP, CRP while on antibiotics to be ordered and followed by hospitalist. Labs ordered for 01/14/17. -Per ID may need follow up imaging. -If any change in clinical condition or questions please call ID automation controls specialist for [place]. -Call ID when patient is going to be discharged so DC orders for antibiotics can be placed. -Pain control with a bowel regimen. -Duoneb/albuterol treatments as needed. -Monitor respiratory status, continue Acapella. -PT/OT. -RT to monitor pulse oximetry. 98% on 2L O2 this morning. Respiratory failure: Resolved. -Chest x-ray consistent with pulmonary edema. Echo with normal EF 55%. CT chest negative for PE, showed small bilateral pleural effusions and minimal airspace disease. Intubated for altered mental status, successfully extubated. -Continue Lasix, 20 mg po. -Monitor I/O's. -Oxygen and nebs as needed. -Incentive spirometry. EtOH abuse/dependence: -S/P CIWA protocol. Patient went through DTs. Patient was counseled about complete cessation. Unclear what his baseline is. -Minimize sedating medications. -Cessation resources upon discharge. Elevated LFTs -AST and alkaline phosphatase have been elevated. Slight trend upwards. Repeat studies on 01/14. -Liver US showing normal echotexture of the liver without focal lesion no ductal dilatation. There is heterogeneous pancreatic echotexture with minimal prominence of the pancreatic duct and small bilateral pleural effusions but otherwise negative. -Hepatitis C antibody reactive. Macrocytic anemia: -Secondary to EtOH dependence. Hgb has been decreasing. Consistent with anemia of chronic disease. Stable at 10.9. -Thiamine, folate. HTN: -Continue Lopressor 50 mg twice a day, Lisinopril 20 mg daily, and Nifedipine 20 mg q8h. -Clonidine and Vasotec as needed. Diarrhea: -12/31: White blood cell count normal. C. difficile test negative. Patient endorses a history of IBS. Continue Imodium. Prophylaxis: Lovenox, SCDs. Discharge Planning Patient will apparently not give up check to [facility] for placement; his daughter is supposed to speak with him regarding this. Attending Statement Patient seen. Agree with above. Problem Qualifiers (1) Fall from ladder: Qualified Code: W11.XXXA - Fall from ladder, initial encounter (2) Hypercapnic respiratory failure: Qualified Code: J96.02 - Acute respiratory failure with hypercapnia (3) Traumatic pneumothorax: Qualified Code: S27.0XXA - Traumatic pneumothorax, initial encounter (4) Lung contusion: Qualified Code: S27.321A - Contusion of left lung, initial encounter (5) Multiple rib fractures: Qualified Code: S22.42XA - Closed fracture of multiple ribs of left side, initial encounter (6) EtOH dependence: Rasheeda Garcia Jan 13, 2017 18:32 Josh Christie MD Jan 14, 2017 07:19
[2017-01-13 20:00] VITALS: BP 109/66; PULSE 73; RESP 20; TEMP 97.8; O2SAT 97
[2017-01-13] MEDS: REMOVE OLD NICODERM (NICOTINE) PATCH TD SCH (21:07)
[2017-01-13] MEDS: REMOVE OLD PATCH T-DERMAL SCH (21:07)
[2017-01-13] MEDS: MELATONIN 5 MG TAB PO PRN (21:10)
[2017-01-14] MEDS: NIFEdipine 20 MG CAP PO SCH ×3 (05:32→22:04)
[2017-01-14 06:43] LABS: AUTOMATED NEUTROPHIL # 2.5 TH/MM3 (1.8-7.7); BASOPHIL # 0.1 TH/MM3 (0-0.2); BASOPHIL % 1.4 % (0.0-2.0); EOSINOPHIL # 0.5 TH/MM3 (0-0.4); EOSINOPHIL % 9.7 % (0.0-4.0); HEMATOCRIT 31.6 % (39.0-51.0); HEMO FLAGS DIFF FINAL; LYMPH % 29.6 % (9.0-44.0); LYMPHOCYTE # 1.6 TH/MM3 (1.0-4.8); MEAN CELL VOLUME 95.3 FL (80.0-100.0); MEAN CORPUSCULAR HEMOGLOBIN 30.5 PG (27.0-34.0); MONO % 10.5 % (0.0-8.0); NEUT % 48.8 % (16.0-70.0); PLATELET COUNT 183 TH/MM3 (150-450); RED BLOOD COUNT 3.31 MIL/MM3 (4.50-5.90); RED CELL DISTRIBUTION WIDTH 14.1 % (11.6-17.2); WHITE BLOOD COUNT 5.3 TH/MM3 (4.0-11.0)
[2017-01-14 06:53] LABS: CHLORIDE 105 MEQ/L (98-107); POTASSIUM 4.3 MEQ/L (3.5-5.1); SODIUM (NA) 140 MEQ/L (136-145)
[2017-01-14 06:57] LABS: ANION GAP 9 MEQ/L (5-15); BICARBONATE 26.2 MEQ/L (21.0-32.0); BLOOD UREA NITROGEN 13 MG/DL (7-18)
[2017-01-14 07:00] LABS: ALT (GPT) 57 U/L (12-78); AST (GOT) 62 U/L (15-37); GLOMERULAR FILTRATION RATE 161 ML/MIN (>89)
[2017-01-14 07:01] LABS: TOTAL BILIRUBIN ADULT 0.2 MG/DL (0.2-1.0)
[2017-01-14 07:03] LABS: ALKALINE PHOSPHATASE 194 U/L (45-117)
[2017-01-14 08:00] VITALS: BP 130/65; PULSE 83; RESP 18; TEMP 96.1; O2SAT 99
[2017-01-14] MEDS: DOCUSATE SODIUM 50 MG/SENNA 8.6 MG TAB PO SCH (08:59)
[2017-01-14] MEDS: POTASSIUM CHLORIDE 20 MEQ CONTROLLED RELEASE TAB PO SCH (08:59)
[2017-01-14] MEDS: FAMOTIDINE 20 MG TAB PO SCH ×2 (08:59→22:04)
[2017-01-14] MEDS: FUROSEMIDE 20 MG TAB PO SCH (08:59)
[2017-01-14] MEDS: ACETAMINOPHEN/HYDROcodone 325 MG/5 MG TAB PO PRN ×3 (08:59→22:05)
[2017-01-14] MEDS: CALCIUM CARBONATE 500 MG CHEWABLE TAB CHEW SCH ×2 (08:59→22:03)
[2017-01-14] MEDS: METOPROLOL TARTRATE 25 MG TAB PO SCH ×2 (08:59→22:04)
[2017-01-14] MEDS: FOLIC ACID 1 MG TAB PO SCH (08:59)
[2017-01-14] MEDS: TAMSULOSIN HCL 0.4 MG CAP PO SCH (08:59)
[2017-01-14] MEDS: GABAPENTIN 400 MG CAP PO SCH ×3 (08:59→17:36)
[2017-01-14] MEDS: SODIUM CHLORIDE 0.9% FLUSH 5 ML FLUSH IVF SCH ×2 (09:00→22:03)
[2017-01-14] MEDS: REMOVE OLD PATCH T-DERMAL SCH (09:00)
[2017-01-14] MEDS: LIDOCAINE HCL 5% PATCH TD SCH (09:00)
[2017-01-14] MEDS: NICOTINE 14 MG/24 HR PATCH TD SCH (09:01)
[2017-01-14] MEDS: ENOXAPARIN SODIUM 40 MG/0.4 ML SYRINGE SQ SCH (11:00)
[2017-01-14] MEDS: LOPERAMIDE HCL 2 MG CAP PO PRN (13:26)
--- NOTE | 2017-01-14 14:08 | HHI.PR ---
Subjective Remarks Follow-up patient with a history of trauma and empyema. She was seen and examined today. He denies any complaints of chest pain or shortness of breath. Also denies any nausea vomiting or abdominal pain. He has no acute medical issues at this time. No change in patient's current clinical status. Objective Vitals Vital Signs Date Time Temp Pulse Resp B/P Pulse Ox O2 Delivery O2 Flow Rate FiO2 01/14/17 08:00 96.1 83 18 130/65 99 01/13/17 20:00 97.8 73 20 109/66 97 01/13/17 18:09 18 I/O 01/13/17 01/13/17 01/13/17 01/14/17 01/14/17 01/14/17 07:00 15:00 23:00 07:00 15:00 23:00 Intake Total 240 ml 620 ml 480 ml 480 ml 0 ml Output Total 700 ml 600 ml 500 ml 500 ml Balance -460 ml 20 ml -20 ml -20 ml 0 ml Intake Oral 240 ml 620 ml 480 ml 480 ml IV Total 0 ml Output Urine Total 700 ml 600 ml 500 ml 500 ml # Bowel Movements 3 0 0 Result Diagram: 01/14/1762701/14/17627 Objective Remarks GENERAL: Well-developed patient in no apparent distress. Lying in hospital bed. Appears comfortable. A&Ox3. Friend visiting at the bedside. CARDIOVASCULAR: Regular rate and rhythm. RESPIRATORY: No accessory muscle use. Diminished breath sounds over left anterior chest, but clear. NEUROLOGICAL: Awake and alert. Normal speech. PSYCHIATRIC: Appropriate mood and affect; insight and judgment normal. Procedures Intubation, extubation L sided VATS, multiple L chest tubes Urinary Catheter: No Date of Removal: Jan 02, 2017 Vascular Central Line Catheter: No Procedures Intubation, extubation L sided VATS, multiple L chest tubes Medications and IVs Current Medications Medications (Trade) Dose Ordered Sig/Jason Route Start Time Stop Time Status Last Admin (Pill Splitter) 1 ea UNSCH PRN OTHER 11/25/16 22:45 (Habitrol 14 Mg Patch.24 Hr) 1 patch DAILY TD 11/26/16 10:00 01/14/17 09:01 Miscellaneous Information 1 HS TD 11/26/16 21:00 01/13/17 21:07 (NS Flush) 2 ml UNSCH PRN IVF 12/05/16 12:15 3/5/17 14:43 (NS Flush) 2 ml BID IVF 12/05/16 12:15 01/14/17 09:00 (Narcan Inj) 0.4 mg UNSCH PRN IV 12/05/16 12:15 (Lovenox Inj) 40 mg Q24H SQ 12/06/16 11:00 01/14/17 11:00 (Melatonin) 5 mg HS PRN PO 12/07/16 00:15 01/13/17 21:10 (ZyPREXA ZYDIS ODT) 5 mg HS PRN PO 12/07/16 00:15 01/06/17 23:11 (Neurontin) 400 mg TID PO 12/14/16 13:00 01/14/17 13:23 (Pepcid) 20 mg BID PO 12/14/16 21:00 01/14/17 08:59 (Procardia) 20 mg Q8HR PO 12/18/16 14:00 01/14/17 13:23 (Tylenol) 650 mg Q4H PRN PO 12/19/16 12:30 12/22/16 13:00 (KCl) 40 meq DAILY PO 12/20/16 09:00 01/14/17 08:59 Calcium Carbonate 500 mg 500 mg Q12HR CHEW 12/20/16 09:00 01/14/17 08:59 (INVanz INJ/NS Inj) 100 ml @ 200 mls/hr Q24H IV 12/24/16 16:00 01/25/17 15:59 01/13/17 18:17 (Folate) 1 mg DAILY PO 12/28/16 11:45 01/14/17 08:59 (Lasix) 20 mg DAILY PO 12/29/16 09:00 01/14/17 08:59 (Flomax) 0.4 mg DAILY PO 01/02/17 17:23 01/14/17 08:59 (Lopressor) 25 mg Q12HR PO 01/04/17 21:00 01/14/17 08:59 (Zofran Odt) 4 mg Q6H PRN PO 01/04/17 15:00 (Lidoderm 5% Patch.12 Hr) 1 patch DAILY TD 01/08/17 09:00 01/14/17 09:00 Miscellaneous Information 1 HS T-DERMAL 01/08/17 21:00 01/14/17 09:00 (Fessenden 5-325 Mg) 1 tab Q6H PRN PO 01/09/17 09:45 01/14/17 08:59 (Roseanne-Colace) 1 tab DAILY PO 01/11/17 09:00 01/14/17 08:59 (Lactulose Liq) 30 ml DAILY PRN PO 01/10/17 10:45 (Imodium) 2 mg Q6H PRN PO 01/10/17 10:45 01/14/17 13:26 Date of Removal: Jan 02, 2017 A/P Problem List: (1) Fall from ladder ICD Code: W11.XXXA Status: Acute (2) Metabolic encephalopathy ICD Code: G93.41 Status: Resolved (3) Hypercapnic respiratory failure ICD Code: J96.92 Status: Resolved (4) Traumatic pneumothorax ICD Code: S27.0XXA Status: Acute (5) Lung contusion ICD Code: S27.329A Status: Acute (6) Multiple rib fractures ICD Code: S22.49XA Status: Acute (7) Fracture of transverse process of thoracic vertebra ICD Code: S22.009A Status: Acute (8) Lumbar transverse process fracture ICD Code: S32.008A Status: Acute (9) Left acetabular fracture ICD Code: S32.402A Status: Acute (10) Bilateral pubic rami fractures ICD Code: S32.591A Status: Acute (11) Sacral fracture, closed ICD Code: S32.10XA Status: Acute (12) HTN (hypertension) ICD Code: I10 Status: Acute (13) EtOH dependence ICD Code: F10.20 Status: Acute Assessment and Plan 58-year-old gentleman reportedly fell 20 feet off from a tree onto his back without loss of consciousness. He was brought in as a trauma alert. Patient arrived alert with mild confusion complaining of back pain and left chest pain. Patient had multiple left-sided rib fractures with hemopneumothorax. Patient also had multiple pelvic fractures with sacral fracture. Initially managed in critical care, improved clinically and was transferred to medical-surgical floor. The pt then had altered mental status and was transferred to the ICU and intubated. Antibiotics were adjusted, he was evaluated by neurology, he was extubated and is now back on med-surg floor and stable. Altered mental status, lethargy, Resolved -CT of the brain was negative - indicates that his friend could have given him Xanax, and there might be more in the room per previous note -Urine drug screen was only positive for opiates, no benzodiazepines -Mentation significantly improved with the decrease in pain medication. Tea-colored urine: Resolved. -Urinalysis was performed which did indicate hematuria. This is likely secondary to indwelling Guillaume catheter removed. -Patient with condom catheter at this time, urine coloration has improved -Try to avoid use of condom catheter -Urine culture shows no growth for 48 hours Status post fall: -Sustained multiple rib fractures, pelvic fractures with sacral fracture, nondisplaced acetabular fracture, thoracic and lumbar transverse process fractures. -Orthopedics cleared patient. Weightbearing as tolerated right lower extremity , toe-touch weightbearing left lower extremity. -Pain management with a bowel regimen. Lortab 5 mg every 6 hours as needed for pain. Lidoderm patch to area -PT/OT. Metabolic encephalopathy: Resolved. -Head CT was negative for intracranial hemorrhage. -MRI brain negative for any ischemia or acute abnormality. -EEG with no evidence of seizure activity, moderate encephalopathy. Neuro consult appreciated. Ammonia level normal. Possible delirium secondary to sepsis. Improved. He endorsed difficulty swallowing, but was evaluated by speech therapy who recommends regular diet and thin liquids. -PT/ OT. -Continue antibiotics. Pneumonia/ Left lung empyema: -S/p VATS, thoracotomy and decortication with evacuation of left empyema . -S/P Diflucan IV, Zosyn and Vancomycin. Chest tube removed. -Continue Ertapenem IV (tentative stop date: 01/25/2017 per ID) -Patient pulled out his central line. I reconsulted vascular access for PICC line placement but vascular cash accountant tells me that patient does not require a PICC and peripheral line can be placed. -Per ID, weekly CBC with diff, CMP, CRP while on antibiotics to be ordered and followed by hospitalist. Labs ordered today: CBC unremarkable except for mild anemia which appears stable, CMP which is unremarkable except for a slight elevation in AST 62 which is much improved from the previous value of 169 and elevation of alkaline phosphatase at 194 which is unchanged, CRP is 1 and sedimentation rate is 65. Will repeat laboratory studies in one week - 01/21/17. -Per ID may need follow up imaging. -If any change in clinical condition or questions please call ID malt specifications control assistant for [place]. -Call ID when patient is going to be discharged so DC orders for antibiotics can be placed. -Pain control with a bowel regimen. -Duoneb/albuterol treatments as needed. -Monitor respiratory status, continue Acapella. -PT/OT. -RT to monitor pulse oximetry. 99% on room air. Respiratory failure: Resolved. -Chest x-ray consistent with pulmonary edema. Echo with normal EF 55%. CT chest negative for PE, showed small bilateral pleural effusions and minimal airspace disease. Intubated for altered mental status, successfully extubated. -Continue Lasix, 20 mg po. -Monitor I/O's. -Oxygen and nebs as needed. -Incentive spirometry. EtOH abuse/dependence: -S/P CIWA protocol. Patient went through DTs. Patient was counseled about complete cessation. Unclear what his baseline is. -Minimize sedating medications. -Cessation resources upon discharge. Elevated LFTs -AST and alkaline phosphatase have been elevated. Slight trend upwards. Repeat studies on 01/14 showed improvement with decrease in AST from 169 to 62 and ALT 87 to 57. -Liver US showing normal echotexture of the liver without focal lesion no ductal dilatation. There is heterogeneous pancreatic echotexture with minimal prominence of the pancreatic duct and small bilateral pleural effusions but otherwise negative. -Hepatitis C antibody reactive, follow up as outpatient. Macrocytic anemia: -Secondary to EtOH dependence. Hgb has been decreasing. Consistent with anemia of chronic disease. Stable at 10.9. -Thiamine, folate. HTN: -Controlled. -Continue Lopressor 50 mg twice a day, Lisinopril 20 mg daily, and Nifedipine 20 mg q8h. -Clonidine and Vasotec as needed. Diarrhea: -12/31: White blood cell count normal. C. difficile test negative. Patient endorses a history of IBS. Continue Imodium. Prophylaxis: Lovenox, SCDs. Discharge Planning Patient will apparently not give up check to [facility] for placement; his daughter is supposed to speak with him regarding this. Attending Statement Patient seen. Agree with above. Problem Qualifiers (1) Fall from ladder: Qualified Code: W11.XXXA - Fall from ladder, initial encounter (2) Hypercapnic respiratory failure: Qualified Code: J96.02 - Acute respiratory failure with hypercapnia (3) Traumatic pneumothorax: Qualified Code: S27.0XXA - Traumatic pneumothorax, initial encounter (4) Lung contusion: Qualified Code: S27.321A - Contusion of left lung, initial encounter (5) Multiple rib fractures: Qualified Code: S22.42XA - Closed fracture of multiple ribs of left side, initial encounter (6) EtOH dependence: Rasheeda Garcia Jan 14, 2017 14:08 Josh Christie MD Jan 14, 2017 18:55
[2017-01-14] MEDS: ERTAPENEM INJ 1,000 MG in SODIUM CHLORIDE 0.9% INJ 100 ML IV SCH (15:54)
[2017-01-14 20:00] VITALS: BP 133/76; PULSE 78; RESP 16; TEMP 97.8; O2SAT 98
[2017-01-14] MEDS: REMOVE OLD NICODERM (NICOTINE) PATCH TD SCH (21:00)
[2017-01-14] MEDS: MELATONIN 5 MG TAB PO PRN (22:04)
[2017-01-15] MEDS: NIFEdipine 20 MG CAP PO SCH ×3 (05:25→21:12)
[2017-01-15 07:15] VITALS: BP 119/72; PULSE 78; RESP 20; TEMP 96.6; O2SAT 98
[2017-01-15] MEDS: DOCUSATE SODIUM 50 MG/SENNA 8.6 MG TAB PO SCH (09:00)
[2017-01-15] MEDS: SODIUM CHLORIDE 0.9% FLUSH 5 ML FLUSH IVF SCH ×2 (09:00→21:12)
[2017-01-15] MEDS: METOPROLOL TARTRATE 25 MG TAB PO SCH ×2 (09:18→21:12)
[2017-01-15] MEDS: FAMOTIDINE 20 MG TAB PO SCH ×2 (09:18→21:12)
[2017-01-15] MEDS: FUROSEMIDE 20 MG TAB PO SCH (09:18)
[2017-01-15] MEDS: TAMSULOSIN HCL 0.4 MG CAP PO SCH (09:19)
[2017-01-15] MEDS: GABAPENTIN 400 MG CAP PO SCH ×3 (09:19→17:39)
[2017-01-15] MEDS: CALCIUM CARBONATE 500 MG CHEWABLE TAB CHEW SCH ×2 (09:19→21:12)
[2017-01-15] MEDS: FOLIC ACID 1 MG TAB PO SCH (09:19)
[2017-01-15] MEDS: ACETAMINOPHEN/HYDROcodone 325 MG/5 MG TAB PO PRN ×3 (09:19→21:19)
[2017-01-15] MEDS: POTASSIUM CHLORIDE 20 MEQ CONTROLLED RELEASE TAB PO SCH (09:20)
[2017-01-15] MEDS: NICOTINE 14 MG/24 HR PATCH TD SCH (09:20)
[2017-01-15] MEDS: LIDOCAINE HCL 5% PATCH TD SCH (09:20)
--- NOTE | 2017-01-15 12:03 | HHI.PR ---
Subjective Remarks Follow-up on patient with a history of trauma empyema. Patient was seen and examined today. His only complaint today is that he would like his diet changed from heart healthy to regular. He denies any acute medical issues. No change patient's current clinical status. Objective Vitals Vital Signs Date Time Temp Pulse Resp B/P Pulse Ox O2 Delivery O2 Flow Rate FiO2 01/15/17 07:15 96.6 78 20 119/72 98 01/14/17 20:00 97.8 78 16 133/76 98 I/O 01/14/17 01/14/17 01/14/17 01/15/17 01/15/17 01/15/17 07:00 15:00 23:00 07:00 15:00 23:00 Intake Total 480 ml 360 ml 620 ml 480 ml Output Total 500 ml 650 ml 850 ml 900 ml Balance -20 ml -290 ml -230 ml -420 ml Intake Oral 480 ml 360 ml 480 ml 480 ml IV Total 0 ml 140 ml 0 ml Output Urine Total 500 ml 650 ml 850 ml 900 ml # Bowel Movements 0 2 0 0 Result Diagram: 01/14/1762701/14/17627 Objective Remarks GENERAL: Well-developed patient in no apparent distress. Lying in hospital bed. Appears comfortable. A&Ox3. CARDIOVASCULAR: Regular rate and rhythm. RESPIRATORY: No accessory muscle use. Diminished breath sounds over left anterior chest, but clear. NEUROLOGICAL: Awake and alert. Normal speech. PSYCHIATRIC: Appropriate mood and affect; insight and judgment normal. Procedures Intubation, extubation L sided VATS, multiple L chest tubes Urinary Catheter: No Date of Removal: Jan 02, 2017 Vascular Central Line Catheter: No Procedures Intubation, extubation L sided VATS, multiple L chest tubes Medications and IVs Current Medications Medications (Trade) Dose Ordered Sig/Jason Route Start Time Stop Time Status Last Admin (Pill Splitter) 1 ea UNSCH PRN OTHER 11/25/16 22:45 (Habitrol 14 Mg Patch.24 Hr) 1 patch DAILY TD 11/26/16 10:00 01/15/17 09:20 Miscellaneous Information 1 HS TD 11/26/16 21:00 01/14/17 21:00 (NS Flush) 2 ml UNSCH PRN IVF 12/05/16 12:15 12/26/16 14:43 (NS Flush) 2 ml BID IVF 12/05/16 12:15 01/15/17 09:00 (Narcan Inj) 0.4 mg UNSCH PRN IV 12/05/16 12:15 (Lovenox Inj) 40 mg Q24H SQ 12/06/16 11:00 01/14/17 11:00 (Melatonin) 5 mg HS PRN PO 12/07/16 00:15 01/14/17 22:04 (ZyPREXA ZYDIS ODT) 5 mg HS PRN PO 12/07/16 00:15 01/06/17 23:11 (Neurontin) 400 mg TID PO 12/14/16 13:00 01/15/17 09:19 (Pepcid) 20 mg BID PO 12/14/16 21:00 01/15/17 09:18 (Procardia) 20 mg Q8HR PO 12/18/16 14:00 01/15/17 05:25 (Tylenol) 650 mg Q4H PRN PO 12/19/16 12:30 12/22/16 13:00 (KCl) 40 meq DAILY PO 12/20/16 09:00 01/15/17 09:20 Calcium Carbonate 500 mg 500 mg Q12HR CHEW 12/20/16 09:00 01/15/17 09:19 (INVanz INJ/NS Inj) 100 ml @ 200 mls/hr Q24H IV 12/24/16 16:00 01/25/17 15:59 01/14/17 15:54 (Folate) 1 mg DAILY PO 12/28/16 11:45 01/15/17 09:19 (Lasix) 20 mg DAILY PO 12/29/16 09:00 01/15/17 09:18 (Flomax) 0.4 mg DAILY PO 01/02/17 17:23 01/15/17 09:19 (Lopressor) 25 mg Q12HR PO 01/04/17 21:00 01/15/17 09:18 (Zofran Odt) 4 mg Q6H PRN PO 01/04/17 15:00 (Lidoderm 5% Patch.12 Hr) 1 patch DAILY TD 01/08/17 09:00 01/15/17 09:20 Miscellaneous Information 1 HS T-DERMAL 01/08/17 21:00 01/14/17 09:00 ([place] 5-325 Mg) 1 tab Q6H PRN PO 01/09/17 09:45 01/15/17 09:19 (Roseanne-Colace) 1 tab DAILY PO 01/11/17 09:00 01/14/17 08:59 (Lactulose Liq) 30 ml DAILY PRN PO 01/10/17 10:45 (Imodium) 2 mg Q6H PRN PO 01/10/17 10:45 01/14/17 13:26 Date of Removal: Jan 02, 2017 A/P Problem List: (1) Fall from ladder ICD Code: W11.XXXA Status: Acute (2) Metabolic encephalopathy ICD Code: G93.41 Status: Resolved (3) Hypercapnic respiratory failure ICD Code: J96.92 Status: Resolved (4) Traumatic pneumothorax ICD Code: S27.0XXA Status: Acute (5) Lung contusion ICD Code: S27.329A Status: Acute (6) Multiple rib fractures ICD Code: S22.49XA Status: Acute (7) Fracture of transverse process of thoracic vertebra ICD Code: S22.009A Status: Acute (8) Lumbar transverse process fracture ICD Code: S32.008A Status: Acute (9) Left acetabular fracture ICD Code: S32.402A Status: Acute (10) Bilateral pubic rami fractures ICD Code: S32.591A Status: Acute (11) Sacral fracture, closed ICD Code: S32.10XA Status: Acute (12) HTN (hypertension) ICD Code: I10 Status: Acute (13) EtOH dependence ICD Code: F10.20 Status: Acute Assessment and Plan 58-year-old gentleman reportedly fell 20 feet off from a tree onto his back without loss of consciousness. He was brought in as a trauma alert. Patient arrived alert with mild confusion complaining of back pain and left chest pain. Patient had multiple left-sided rib fractures with hemopneumothorax. Patient also had multiple pelvic fractures with sacral fracture. Initially managed in critical care, improved clinically and was transferred to medical-surgical floor. The pt then had altered mental status and was transferred to the ICU and intubated. Antibiotics were adjusted, he was evaluated by neurology, he was extubated and is now back on med-surg floor and stable. Altered mental status, lethargy, Resolved -CT of the brain was negative - indicates that his friend could have given him Xanax, and there might be more in the room per previous note -Urine drug screen was only positive for opiates, no benzodiazepines -Mentation significantly improved with the decrease in pain medication. Tea-colored urine: Resolved. -Urinalysis was performed which did indicate hematuria. This is likely secondary to indwelling Guillaume catheter removed. -Patient with condom catheter at this time, urine coloration has improved -Try to avoid use of condom catheter -Urine culture shows no growth for 48 hours Status post fall: -Sustained multiple rib fractures, pelvic fractures with sacral fracture, nondisplaced acetabular fracture, thoracic and lumbar transverse process fractures. -Orthopedics cleared patient. Weightbearing as tolerated right lower extremity , toe-touch weightbearing left lower extremity. -Pain management with a bowel regimen. Lortab 5 mg every 6 hours as needed for pain. Lidoderm patch to area -Continue participation with PT/OT. Metabolic encephalopathy: Resolved. -Head CT was negative for intracranial hemorrhage. -MRI brain negative for any ischemia or acute abnormality. -EEG with no evidence of seizure activity, moderate encephalopathy. Neuro consult appreciated. Ammonia level normal. Possible delirium secondary to sepsis. Improved. He endorsed difficulty swallowing, but was evaluated by speech therapy who recommends regular diet and thin liquids. -PT/ OT. -Continue antibiotics. Pneumonia/ Left lung empyema: -S/p VATS, thoracotomy and decortication with evacuation of left empyema . -S/P Diflucan IV, Zosyn and Vancomycin. Chest tube removed. -Continue Ertapenem IV (tentative stop date: 01/25/2017 per ID) -Patient pulled out his central line. I reconsulted vascular access for PICC line placement but vascular mutuel machine operator tells me that patient does not require a PICC and peripheral line can be placed. -Per ID, weekly CBC with diff, CMP, CRP while on antibiotics to be ordered and followed by hospitalist. Labs 01/14/17: CBC unremarkable except for mild anemia which appears stable, CMP which is unremarkable except for a slight elevation in AST 62 which is much improved from the previous value of 169 and elevation of alkaline phosphatase at 194 which is unchanged, CRP is 1 and sedimentation rate is 65. Will repeat laboratory studies in one week - 01/21/17. -Per ID may need follow up imaging. -If any change in clinical condition or questions please call ID visual education director for [place]. -Call ID when patient is going to be discharged so DC orders for antibiotics can be placed. -Pain control with a bowel regimen. -Duoneb/albuterol treatments as needed. -Monitor respiratory status, continue Acapella. -PT/OT. -RT to monitor pulse oximetry. 99% on room air. Respiratory failure: Resolved. -Chest x-ray consistent with pulmonary edema. Echo with normal EF 55%. CT chest negative for PE, showed small bilateral pleural effusions and minimal airspace disease. Intubated for altered mental status, successfully extubated. -Continue Lasix, 20 mg po. -Monitor I/O's. -Oxygen and nebs as needed. -Incentive spirometry. ETOH abuse/dependence: -S/P CIWA protocol. Patient went through DTs. Patient was counseled about complete cessation. Unclear what his baseline is. -Minimize sedating medications. -Cessation resources upon discharge. History of hypomagnesemia - Last mag level 12/29/16 was 1.3 - Will order new lab study and treat if indicated Elevated LFTs -AST and alkaline phosphatase have been elevated. Slight trend upwards. Repeat studies on 01/14 showed improvement with decrease in AST from 169 to 62 and ALT 87 to 57. -Liver US showing normal echotexture of the liver without focal lesion no ductal dilatation. There is heterogeneous pancreatic echotexture with minimal prominence of the pancreatic duct and small bilateral pleural effusions but otherwise negative. -Hepatitis C antibody reactive, follow up as outpatient. Macrocytic anemia: -Secondary to ETOH dependence. Hgb has been decreasing. Consistent with anemia of chronic disease. Stable at 10.9. -Continue Thiamine, folate. HTN: -Well controlled. -Continue Lopressor 50 mg twice a day, Lisinopril 20 mg daily, and Nifedipine 20 mg q8h. -Clonidine and Vasotec as needed. Diarrhea: -01/14: White blood cell count normal. C. difficile test negative. Patient endorses a history of IBS. Continue Imodium prn. Prophylaxis: Lovenox, SCDs. Discharge Planning Patient will apparently not give up check to [facility] for placement; his daughter is supposed to speak with him regarding this. Attending Statement Patient seen. Agree with above. Problem Qualifiers (1) Fall from ladder: Qualified Code: W11.XXXA - Fall from ladder, initial encounter (2) Hypercapnic respiratory failure: Qualified Code: J96.02 - Acute respiratory failure with hypercapnia (3) Traumatic pneumothorax: Qualified Code: S27.0XXA - Traumatic pneumothorax, initial encounter (4) Lung contusion: Qualified Code: S27.321A - Contusion of left lung, initial encounter (5) Multiple rib fractures: Qualified Code: S22.42XA - Closed fracture of multiple ribs of left side, initial encounter (6) EtOH dependence: Rasheeda Garcia Jan 15, 2017 12:03 Josh Christie MD Jan 15, 2017 12:40
[2017-01-15] MEDS: ENOXAPARIN SODIUM 40 MG/0.4 ML SYRINGE SQ SCH (12:04)
[2017-01-15] MEDS: ERTAPENEM INJ 1,000 MG in SODIUM CHLORIDE 0.9% INJ 100 ML IV SCH (14:32)
[2017-01-15 20:00] VITALS: BP 134/71; PULSE 78; RESP 19; TEMP 98.7; O2SAT 98
[2017-01-15] MEDS: REMOVE OLD NICODERM (NICOTINE) PATCH TD SCH (21:00)
[2017-01-15] MEDS: REMOVE OLD PATCH T-DERMAL SCH (21:00)
[2017-01-15] MEDS: MELATONIN 5 MG TAB PO PRN (21:17)
[2017-01-16] MEDS: NIFEdipine 20 MG CAP PO SCH ×3 (06:10→20:54)
[2017-01-16 08:00] VITALS: BP 119/68; PULSE 75; RESP 18; TEMP 97.1; O2SAT 98
[2017-01-16] MEDS: POTASSIUM CHLORIDE 20 MEQ CONTROLLED RELEASE TAB PO SCH (09:01)
[2017-01-16] MEDS: FOLIC ACID 1 MG TAB PO SCH (09:02)
[2017-01-16] MEDS: FAMOTIDINE 20 MG TAB PO SCH ×2 (09:02→20:53)
[2017-01-16] MEDS: TAMSULOSIN HCL 0.4 MG CAP PO SCH (09:02)
[2017-01-16] MEDS: CALCIUM CARBONATE 500 MG CHEWABLE TAB CHEW SCH ×2 (09:02→20:54)
[2017-01-16] MEDS: METOPROLOL TARTRATE 25 MG TAB PO SCH ×2 (09:02→20:54)
[2017-01-16] MEDS: GABAPENTIN 400 MG CAP PO SCH ×3 (09:02→17:49)
[2017-01-16] MEDS: FUROSEMIDE 20 MG TAB PO SCH (09:02)
[2017-01-16] MEDS: DOCUSATE SODIUM 50 MG/SENNA 8.6 MG TAB PO SCH (09:02)
[2017-01-16] MEDS: SODIUM CHLORIDE 0.9% FLUSH 5 ML FLUSH IVF SCH ×2 (09:02→20:57)
[2017-01-16] MEDS: LIDOCAINE HCL 5% PATCH TD SCH (09:03)
[2017-01-16] MEDS: NICOTINE 14 MG/24 HR PATCH TD SCH (09:03)
[2017-01-16] MEDS: ACETAMINOPHEN/HYDROcodone 325 MG/5 MG TAB PO PRN ×3 (09:15→22:00)
[2017-01-16] MEDS: ENOXAPARIN SODIUM 40 MG/0.4 ML SYRINGE SQ SCH (11:37)
[2017-01-16 13:37] VITALS: BP 125/67; PULSE 72; RESP 18; O2SAT 100
[2017-01-16] MEDS: ERTAPENEM INJ 1,000 MG in SODIUM CHLORIDE 0.9% INJ 100 ML IV SCH (15:26)
--- NOTE | 2017-01-16 15:39 | HHI.PR ---
Subjective Remarks Follow-up on patient with a history of trauma empyema. Patient was seen and examined. Today his only complaint is his breakfast portion is too small. He denies any new acute medical issues. He denies any chest pain, abdominal pain or shortness of breath. Objective Vitals Vital Signs Date Time Temp Pulse Resp B/P Pulse Ox O2 Delivery O2 Flow Rate FiO2 01/16/17 13:37 72 18 125/67 100 01/16/17 10:15 18 01/16/17 08:00 97.1 75 18 119/68 98 01/15/17 20:00 98.7 78 19 134/71 98 I/O 01/15/17 01/15/17 01/15/17 01/16/17 01/16/17 01/16/17 07:00 15:00 23:00 07:00 15:00 23:00 Intake Total 480 ml 1000 ml 120 ml 120 ml 600 ml Output Total 900 ml 1000 ml 575 ml 325 ml 900 ml 300 ml Balance -420 ml 0 ml -455 ml -205 ml -300 ml -300 ml Intake Oral 480 ml 1000 ml 120 ml 120 ml 600 ml IV Total 0 ml Output Urine Total 900 ml 1000 ml 575 ml 325 ml 900 ml 300 ml # Bowel Movements 0 1 0 0 Result Diagram: 01/14/1762701/14/17627 Objective Remarks GENERAL: Well-developed patient in no apparent distress. Lying in hospital bed. Appears comfortable. A&Ox3. CARDIOVASCULAR: Regular rate and rhythm. RESPIRATORY: No accessory muscle use. Diminished breath sounds over left anterior chest, but clear. NEUROLOGICAL: Awake and alert. Normal speech. PSYCHIATRIC: Appropriate mood and affect; insight and judgment normal. Procedures Intubation, extubation L sided VATS, multiple L chest tubes Urinary Catheter: No Date of Removal: Jan 02, 2017 Vascular Central Line Catheter: No Procedures Intubation, extubation L sided VATS, multiple L chest tubes Medications and IVs Current Medications Medications (Trade) Dose Ordered Sig/Jason Route Start Time Stop Time Status Last Admin (Pill Splitter) 1 ea UNSCH PRN OTHER 11/25/16 22:45 (Habitrol 14 Mg Patch.24 Hr) 1 patch DAILY TD 11/26/16 10:00 01/16/17 09:03 Miscellaneous Information 1 HS TD 11/26/16 21:00 01/15/17 21:00 (NS Flush) 2 ml UNSCH PRN IVF 12/05/16 12:15 12/26/16 14:43 (NS Flush) 2 ml BID IVF 12/05/16 12:15 01/16/17 09:02 (Narcan Inj) 0.4 mg UNSCH PRN IV 12/05/16 12:15 (Lovenox Inj) 40 mg Q24H SQ 12/06/16 11:00 01/16/17 11:37 (Melatonin) 5 mg HS PRN PO 12/07/16 00:15 01/15/17 21:17 (ZyPREXA ZYDIS ODT) 5 mg HS PRN PO 12/07/16 00:15 01/06/17 23:11 (Neurontin) 400 mg TID PO 12/14/16 13:00 01/16/17 13:38 (Pepcid) 20 mg BID PO 12/14/16 21:00 01/16/17 09:02 (Procardia) 20 mg Q8HR PO 12/18/16 14:00 01/16/17 13:38 (Tylenol) 650 mg Q4H PRN PO 12/19/16 12:30 12/22/16 13:00 (KCl) 40 meq DAILY PO 12/20/16 09:00 01/16/17 09:01 Calcium Carbonate 500 mg 500 mg Q12HR CHEW 12/20/16 09:00 01/16/17 09:02 (INVanz INJ/NS Inj) 100 ml @ 200 mls/hr Q24H IV 12/24/16 16:00 01/25/17 15:59 01/16/17 15:26 (Folate) 1 mg DAILY PO 12/28/16 11:45 01/16/17 09:02 (Lasix) 20 mg DAILY PO 12/29/16 09:00 01/16/17 09:02 (Flomax) 0.4 mg DAILY PO 01/02/17 17:23 01/16/17 09:02 (Lopressor) 25 mg Q12HR PO 01/04/17 21:00 01/16/17 09:02 (Zofran Odt) 4 mg Q6H PRN PO 01/04/17 15:00 (Lidoderm 5% Patch.12 Hr) 1 patch DAILY TD 01/08/17 09:00 01/16/17 09:03 Miscellaneous Information 1 HS T-DERMAL 01/08/17 21:00 01/15/17 21:00 ([place] 5-325 Mg) 1 tab Q6H PRN PO 01/09/17 09:45 01/16/17 15:25 (Roseanne-Colace) 1 tab DAILY PO 01/11/17 09:00 01/16/17 09:02 (Lactulose Liq) 30 ml DAILY PRN PO 01/10/17 10:45 (Imodium) 2 mg Q6H PRN PO 01/10/17 10:45 01/14/17 13:26 Date of Removal: Jan 02, 2017 A/P Problem List: (1) Fall from ladder ICD Code: W11.XXXA Status: Acute (2) Metabolic encephalopathy ICD Code: G93.41 Status: Resolved (3) Hypercapnic respiratory failure ICD Code: J96.92 Status: Resolved (4) Traumatic pneumothorax ICD Code: S27.0XXA Status: Acute (5) Lung contusion ICD Code: S27.329A Status: Acute (6) Multiple rib fractures ICD Code: S22.49XA Status: Acute (7) Fracture of transverse process of thoracic vertebra ICD Code: S22.009A Status: Acute (8) Lumbar transverse process fracture ICD Code: S32.008A Status: Acute (9) Left acetabular fracture ICD Code: S32.402A Status: Acute (10) Bilateral pubic rami fractures ICD Code: S32.591A Status: Acute (11) Sacral fracture, closed ICD Code: S32.10XA Status: Acute (12) HTN (hypertension) ICD Code: I10 Status: Acute (13) EtOH dependence ICD Code: F10.20 Status: Acute Assessment and Plan 58-year-old gentleman reportedly fell 20 feet off from a tree onto his back without loss of consciousness. He was brought in as a trauma alert. Patient arrived alert with mild confusion complaining of back pain and left chest pain. Patient had multiple left-sided rib fractures with hemopneumothorax. Patient also had multiple pelvic fractures with sacral fracture. Initially managed in critical care, improved clinically and was transferred to medical-surgical floor. The pt then had altered mental status and was transferred to the ICU and intubated. Antibiotics were adjusted, he was evaluated by neurology, he was extubated and is now back on med-surg floor and stable. Altered mental status, lethargy, Resolved -CT of the brain was negative - indicates that his friend could have given him Xanax, and there might be more in the room per previous note -Urine drug screen was only positive for opiates, no benzodiazepines -Mentation significantly improved with the decrease in pain medication. Tea-colored urine: Resolved. -Urinalysis was performed which did indicate hematuria. This is likely secondary to indwelling Guillaume catheter removed. -Patient with condom catheter at this time, urine coloration has improved -Try to avoid use of condom catheter -Urine culture shows no growth for 48 hours Status post fall: -Sustained multiple rib fractures, pelvic fractures with sacral fracture, nondisplaced acetabular fracture, thoracic and lumbar transverse process fractures. -Orthopedics cleared patient. Weightbearing as tolerated right lower extremity , toe-touch weightbearing left lower extremity. -Pain management with a bowel regimen. Lortab 5 mg every 6 hours as needed for pain. Lidoderm patch to area -Continue participation with PT/OT. Metabolic encephalopathy: Resolved. -Head CT was negative for intracranial hemorrhage. -MRI brain negative for any ischemia or acute abnormality. -EEG with no evidence of seizure activity, moderate encephalopathy. Neuro consult appreciated. Ammonia level normal. Possible delirium secondary to sepsis. Improved. He endorsed difficulty swallowing, but was evaluated by speech therapy who recommends regular diet and thin liquids. -PT/ OT. -Continue antibiotics. Pneumonia/ Left lung empyema: -S/p VATS, thoracotomy and decortication with evacuation of left empyema . -S/P Diflucan IV, Zosyn and Vancomycin. Chest tube removed. -Continue Ertapenem IV (tentative stop date: 01/25/2017 per ID) -Patient pulled out his central line. I reconsulted vascular access for PICC line placement but vascular pattern technician tells me that patient does not require a PICC and peripheral line can be placed. -Per ID, weekly CBC with diff, CMP, CRP while on antibiotics to be ordered and followed by hospitalist. Labs 01/14/17: CBC unremarkable except for mild anemia which appears stable, CMP which is unremarkable except for a slight elevation in AST 62 which is much improved from the previous value of 169 and elevation of alkaline phosphatase at 194 which is unchanged, CRP is 1 and sedimentation rate is 65. Will repeat laboratory studies in one week - 01/21/17. -Per ID may need follow up imaging. -If any change in clinical condition or questions please call ID nutrition partner for [facility]. -Call ID when patient is going to be discharged so DC orders for antibiotics can be placed. -Pain control with a bowel regimen. -Duoneb/albuterol treatments as needed. -Monitor respiratory status, continue Acapella. -PT/OT. -RT to monitor pulse oximetry. 99% on room air. Respiratory failure: Resolved. -Chest x-ray consistent with pulmonary edema. Echo with normal EF 55%. CT chest negative for PE, showed small bilateral pleural effusions and minimal airspace disease. Intubated for altered mental status, successfully extubated. -Continue Lasix, 20 mg po. -Monitor I/O's. -Oxygen and nebs as needed. -Incentive spirometry. ETOH abuse/dependence: -S/P CIWA protocol. Patient went through DTs. Patient was counseled about complete cessation. Unclear what his baseline is. -Minimize sedating medications. -Cessation resources upon discharge. History of hypomagnesemia - Last mag level 12/29/16 was 1.3. Repeat study 01/15/17 was 1.8. Elevated LFTs -AST and alkaline phosphatase have been elevated. Slight trend upwards. Repeat studies on 01/14 showed improvement with decrease in AST from 169 to 62 and ALT 87 to 57. -Liver US showing normal echotexture of the liver without focal lesion no ductal dilatation. There is heterogeneous pancreatic echotexture with minimal prominence of the pancreatic duct and small bilateral pleural effusions but otherwise negative. -Hepatitis C antibody reactive, follow up as outpatient. Macrocytic anemia: -Secondary to ETOH dependence. Hgb has been decreasing. Consistent with anemia of chronic disease. Stable at 10.9. -Continue Thiamine, folate. HTN: -Well controlled. -Continue Lopressor 50 mg twice a day, Lisinopril 20 mg daily, and Nifedipine 20 mg q8h. -Clonidine and Vasotec as needed. Diarrhea: -01/14: White blood cell count normal. C. difficile test negative. Patient endorses a history of IBS. Continue Imodium prn. Prophylaxis: Lovenox, SCDs. Discharge Planning Patient will apparently not give up check to [facility] facility for placement; his daughter is supposed to speak with him regarding this. Attending Statement Patient seen. Agree with above. Problem Qualifiers (1) Fall from ladder: Qualified Code: W11.XXXA - Fall from ladder, initial encounter (2) Hypercapnic respiratory failure: Qualified Code: J96.02 - Acute respiratory failure with hypercapnia (3) Traumatic pneumothorax: Qualified Code: S27.0XXA - Traumatic pneumothorax, initial encounter (4) Lung contusion: Qualified Code: S27.321A - Contusion of left lung, initial encounter (5) Multiple rib fractures: Qualified Code: S22.42XA - Closed fracture of multiple ribs of left side, initial encounter (6) EtOH dependence: Rasheeda Garcia Jan 16, 2017 15:39 Josh Christie MD Jan 16, 2017 15:57
[2017-01-16 20:00] VITALS: BP 124/73; PULSE 98; RESP 20; TEMP 97; O2SAT 97
[2017-01-16] MEDS: REMOVE OLD PATCH T-DERMAL SCH (21:00)
[2017-01-16] MEDS: REMOVE OLD NICODERM (NICOTINE) PATCH TD SCH (21:00)
[2017-01-16] MEDS: MELATONIN 5 MG TAB PO PRN (22:00)
[2017-01-17] MEDS: NIFEdipine 20 MG CAP PO SCH ×3 (06:11→20:26)
[2017-01-17 08:00] VITALS: BP 120/65; PULSE 77; RESP 18; TEMP 96.3; O2SAT 99
[2017-01-17] MEDS: NICOTINE 14 MG/24 HR PATCH TD SCH (10:07)
[2017-01-17] MEDS: LIDOCAINE HCL 5% PATCH TD SCH (10:10)
[2017-01-17] MEDS: POTASSIUM CHLORIDE 20 MEQ CONTROLLED RELEASE TAB PO SCH (10:14)
[2017-01-17] MEDS: METOPROLOL TARTRATE 25 MG TAB PO SCH ×2 (10:14→20:26)
[2017-01-17] MEDS: FUROSEMIDE 20 MG TAB PO SCH (10:14)
[2017-01-17] MEDS: FOLIC ACID 1 MG TAB PO SCH (10:15)
[2017-01-17] MEDS: FAMOTIDINE 20 MG TAB PO SCH ×2 (10:15→20:26)
[2017-01-17] MEDS: DOCUSATE SODIUM 50 MG/SENNA 8.6 MG TAB PO SCH (10:15)
[2017-01-17] MEDS: CALCIUM CARBONATE 500 MG CHEWABLE TAB CHEW SCH ×2 (10:15→20:26)
[2017-01-17] MEDS: SODIUM CHLORIDE 0.9% FLUSH 5 ML FLUSH IVF SCH ×2 (10:16→20:29)
[2017-01-17] MEDS: GABAPENTIN 400 MG CAP PO SCH ×3 (10:16→18:15)
[2017-01-17] MEDS: TAMSULOSIN HCL 0.4 MG CAP PO SCH (10:18)
[2017-01-17] MEDS: ACETAMINOPHEN/HYDROcodone 325 MG/5 MG TAB PO PRN ×3 (10:23→22:31)
--- NOTE | 2017-01-17 11:52 | HHI.PR ---
Subjective Remarks Follow-up on patient with a history of trauma and empyema. Patient reports that he is doing well today with no complaints. Denies any problems with chest pain shortness of breath or abdominal pain. No change in patient's current clinical status. Patient requesting to put full weight on the left leg. Discussed with patient that he is not cleared by orthopedics to put anything other than toe-touch weight bearing on the left lower extremity. Objective Vitals Vital Signs Date Time Temp Pulse Resp B/P Pulse Ox O2 Delivery O2 Flow Rate FiO2 01/17/17 08:00 96.3 77 18 120/65 99 01/16/17 20:00 97.0 98 20 124/73 97 01/16/17 16:25 18 01/16/17 13:37 72 18 125/67 100 I/O 01/16/17 01/16/17 01/16/17 01/17/17 01/17/17 01/17/17 07:00 15:00 23:00 07:00 15:00 23:00 Intake Total 120 ml 600 ml 240 ml 240 ml 0 ml Output Total 325 ml 900 ml 600 ml 700 ml Balance -205 ml -300 ml -360 ml -460 ml 0 ml Intake Oral 120 ml 600 ml 240 ml 240 ml IV Total 0 ml Output Urine Total 325 ml 900 ml 600 ml 700 ml # Bowel Movements 0 Result Diagram: 01/14/1762701/14/17627 Objective Remarks GENERAL: Well-developed patient in no apparent distress. Lying in hospital bed. Comfortable. A&Ox3. CARDIOVASCULAR: Regular rate and rhythm. RESPIRATORY: No accessory muscle use. Breath sounds clear to auscultation bilaterally. NEUROLOGICAL: Awake and alert. Normal speech. PSYCHIATRIC: Appropriate mood and affect; insight and judgment normal. Procedures Intubation, extubation L sided VATS, multiple L chest tubes Urinary Catheter: No Date of Removal: Jan 02, 2017 Vascular Central Line Catheter: No Procedures Intubation, extubation L sided VATS, multiple L chest tubes Medications and IVs Current Medications Medications (Trade) Dose Ordered Sig/Jason Route Start Time Stop Time Status Last Admin (Pill Splitter) 1 ea UNSCH PRN OTHER 11/25/16 22:45 (Habitrol 14 Mg Patch.24 Hr) 1 patch DAILY TD 11/26/16 10:00 01/17/17 10:07 Miscellaneous Information 1 HS TD 11/26/16 21:00 01/16/17 21:00 (NS Flush) 2 ml UNSCH PRN IVF 12/05/16 12:15 12/26/16 14:43 (NS Flush) 2 ml BID IVF 12/05/16 12:15 01/17/17 10:16 (Narcan Inj) 0.4 mg UNSCH PRN IV 12/05/16 12:15 (Lovenox Inj) 40 mg Q24H SQ 12/06/16 11:00 01/16/17 11:37 (Melatonin) 5 mg HS PRN PO 12/07/16 00:15 01/16/17 22:00 (ZyPREXA ZYDIS ODT) 5 mg HS PRN PO 12/07/16 00:15 01/06/17 23:11 (Neurontin) 400 mg TID PO 12/14/16 13:00 01/17/17 10:16 (Pepcid) 20 mg BID PO 12/14/16 21:00 01/17/17 10:15 (Procardia) 20 mg Q8HR PO 12/18/16 14:00 01/17/17 06:11 (Tylenol) 650 mg Q4H PRN PO 12/19/16 12:30 12/22/16 13:00 (KCl) 40 meq DAILY PO 12/20/16 09:00 01/17/17 10:14 Calcium Carbonate 500 mg 500 mg Q12HR CHEW 12/20/16 09:00 01/17/17 10:15 (INVanz INJ/NS Inj) 100 ml @ 200 mls/hr Q24H IV 12/24/16 16:00 01/25/17 15:59 01/16/17 15:26 (Folate) 1 mg DAILY PO 12/28/16 11:45 01/17/17 10:15 (Lasix) 20 mg DAILY PO 12/29/16 09:00 01/17/17 10:14 (Flomax) 0.4 mg DAILY PO 01/02/17 17:23 01/17/17 10:18 (Lopressor) 25 mg Q12HR PO 01/04/17 21:00 01/17/17 10:14 (Zofran Odt) 4 mg Q6H PRN PO 01/04/17 15:00 (Lidoderm 5% Patch.12 Hr) 1 patch DAILY TD 01/08/17 09:00 01/17/17 10:10 Miscellaneous Information 1 HS T-DERMAL 01/08/17 21:00 01/16/17 21:00 ([place] 5-325 Mg) 1 tab Q6H PRN PO 01/09/17 09:45 01/17/17 10:23 (Roseanne-Colace) 1 tab DAILY PO 01/11/17 09:00 01/17/17 10:15 (Lactulose Liq) 30 ml DAILY PRN PO 01/10/17 10:45 (Imodium) 2 mg Q6H PRN PO 01/10/17 10:45 01/14/17 13:26 Date of Removal: Jan 02, 2017 A/P Problem List: (1) Fall from ladder ICD Code: W11.XXXA Status: Acute (2) Metabolic encephalopathy ICD Code: G93.41 Status: Resolved (3) Hypercapnic respiratory failure ICD Code: J96.92 Status: Resolved (4) Traumatic pneumothorax ICD Code: S27.0XXA Status: Acute (5) Lung contusion ICD Code: S27.329A Status: Acute (6) Multiple rib fractures ICD Code: S22.49XA Status: Acute (7) Fracture of transverse process of thoracic vertebra ICD Code: S22.009A Status: Acute (8) Lumbar transverse process fracture ICD Code: S32.008A Status: Acute (9) Left acetabular fracture ICD Code: S32.402A Status: Acute (10) Bilateral pubic rami fractures ICD Code: S32.591A Status: Acute (11) Sacral fracture, closed ICD Code: S32.10XA Status: Acute (12) HTN (hypertension) ICD Code: I10 Status: Acute (13) EtOH dependence ICD Code: F10.20 Status: Acute Assessment and Plan 58-year-old gentleman reportedly fell 20 feet off from a tree onto his back without loss of consciousness. He was brought in as a trauma alert. Patient arrived alert with mild confusion complaining of back pain and left chest pain. Patient had multiple left-sided rib fractures with hemopneumothorax. Patient also had multiple pelvic fractures with sacral fracture. Initially managed in critical care, improved clinically and was transferred to medical-surgical floor. The pt then had altered mental status and was transferred to the ICU and intubated. Antibiotics were adjusted, he was evaluated by neurology, he was extubated and is now back on med-surg floor and stable. Altered mental status, lethargy, Resolved -CT of the brain was negative - indicates that his friend could have given him Xanax, and there might be more in the room per previous note -Urine drug screen was only positive for opiates, no benzodiazepines -Mentation significantly improved with the decrease in pain medication. Status post fall: -Sustained multiple rib fractures, pelvic fractures with sacral fracture, nondisplaced acetabular fracture, thoracic and lumbar transverse process fractures. -Orthopedics cleared patient. Weightbearing as tolerated right lower extremity , toe-touch weightbearing left lower extremity. -Pain management with a bowel regimen. Lortab 5 mg every 6 hours as needed for pain. Lidoderm patch to area -Continue participation with PT/OT. -Discussed with Darell Mueller, orthopedic PA. He plans to order x-rays today and reevaluate patient on Tuesday. -Patient refused physical therapy yesterday. Prior to that patient has been up ambulating 18 feet. Metabolic encephalopathy: Resolved. -Head CT was negative for intracranial hemorrhage. -MRI brain negative for any ischemia or acute abnormality. -EEG with no evidence of seizure activity, moderate encephalopathy. Neuro consult appreciated. Ammonia level normal. Possible delirium secondary to sepsis. Improved. He endorsed difficulty swallowing, but was evaluated by speech therapy who recommends regular diet and thin liquids. -PT/ OT. -Continue antibiotics. Pneumonia/ Left lung empyema: -S/p VATS, thoracotomy and decortication with evacuation of left empyema . -S/P Diflucan IV, Zosyn and Vancomycin. Chest tube removed. -Continue Ertapenem IV (tentative stop date: 01/25/2017 per ID) -Patient pulled out his central line. I reconsulted vascular access for PICC line placement but vascular access director tells me that patient does not require a PICC and peripheral line can be placed. -Per ID, weekly CBC with diff, CMP, CRP while on antibiotics to be ordered and followed by hospitalist. Labs 01/14/17: CBC unremarkable except for mild anemia which appears stable, CMP which is unremarkable except for a slight elevation in AST 62 which is much improved from the previous value of 169 and elevation of alkaline phosphatase at 194 which is unchanged, CRP is 1 and sedimentation rate is 65. Will repeat laboratory studies in one week - 01/21/17. -Per ID may need follow up imaging. -If any change in clinical condition or questions please call ID hr shared services consultant for [facility]. -Call ID when patient is going to be discharged so DC orders for antibiotics can be placed. -Pain control with a bowel regimen. -Duoneb/albuterol treatments as needed. -Monitor respiratory status, continue Acapella. -PT/OT. -RT to monitor pulse oximetry. 99% on room air. Respiratory failure: Resolved. -Chest x-ray consistent with pulmonary edema. Echo with normal EF 55%. CT chest negative for PE, showed small bilateral pleural effusions and minimal airspace disease. Intubated for altered mental status, successfully extubated. -Continue Lasix, 20 mg po. -Monitor I/O's. -Oxygen and nebs as needed. -Incentive spirometry. ETOH abuse/dependence: -S/P CIWA protocol. Patient went through DTs. Patient was counseled about complete cessation. Unclear what his baseline is. -Minimize sedating medications. -Cessation resources upon discharge. History of hypomagnesemia - Last mag level 12/29/16 was 1.3. Repeat study 01/15/17 was 1.8. Elevated LFTs -AST and alkaline phosphatase have been elevated. Slight trend upwards. Repeat studies on 01/14 showed improvement with decrease in AST from 169 to 62 and ALT 87 to 57. -Liver US showing normal echotexture of the liver without focal lesion no ductal dilatation. There is heterogeneous pancreatic echotexture with minimal prominence of the pancreatic duct and small bilateral pleural effusions but otherwise negative. -Hepatitis C antibody reactive, follow up as outpatient. Macrocytic anemia: -Secondary to ETOH dependence. Hgb has been decreasing. Consistent with anemia of chronic disease. Stable at 10.9. -Continue Thiamine, folate. HTN: -Well controlled. -Continue Lopressor 50 mg twice a day, Lisinopril 20 mg daily, and Nifedipine 20 mg q8h. -Clonidine and Vasotec as needed. Diarrhea: -01/14: White blood cell count normal. C. difficile test negative. Patient endorses a history of IBS. Continue Imodium prn. Prophylaxis: Lovenox, SCDs. Discharge Planning Patient has been accepted at [facility]. Plan for discharge if cleared by orthopedic surgery. Attending Statement Patient seen. Agree with above. Ortho to review xrays. Possible discharge to SNF today if cleared by ortho. Problem Qualifiers (1) Fall from ladder: Qualified Code: W11.XXXA - Fall from ladder, initial encounter (2) Hypercapnic respiratory failure: Qualified Code: J96.02 - Acute respiratory failure with hypercapnia (3) Traumatic pneumothorax: Qualified Code: S27.0XXA - Traumatic pneumothorax, initial encounter (4) Lung contusion: Qualified Code: S27.321A - Contusion of left lung, initial encounter (5) Multiple rib fractures: Qualified Code: S22.42XA - Closed fracture of multiple ribs of left side, initial encounter (6) EtOH dependence: Rasheeda Garcia Jan 17, 2017 11:52 Josh Christie MD Jan 17, 2017 14:03
[2017-01-17] MEDS: ENOXAPARIN SODIUM 40 MG/0.4 ML SYRINGE SQ SCH (12:33)
--- NOTE | 2017-01-17 14:09 | RADHPO ---
EXAM DATE/TIME: 01/17/2017 13:13 [facility] COMPARISON: PELVIS AP/INLET/OUTLET (3VWS), November 30, 2016, 10:32. INDICATIONS : Follow up pelvic fracture. MEDICAL HISTORY : None. SURGICAL HISTORY : None. ENCOUNTER: Subsequent ACUITY: 2 months PAIN SCORE: 7/10 LOCATION: Bilateral pelvis FINDINGS: There is fracture callous about the rami fracture on the right in reasonable alignment. The sacral f racture on the left is not visualized. Rami fracture on the left does not have any callous evident. CONCLUSION: Fractures as described above. Ralph Garcias MD FACR on January 17, 2017 at 14:01 Board Certified Radiologist. This report was verified electronically.
[2017-01-17] MEDS ORDERED: NIFE20 PO (15:08)
[2017-01-17] MEDS ORDERED: METO25TA3 PO (15:08)
[2017-01-17] MEDS ORDERED: POTA20TA5 PO (15:08)
[2017-01-17] MEDS ORDERED: LIDO5DIS35 TD (15:08)
[2017-01-17] MEDS ORDERED: FURO20TA PO (15:08)
[2017-01-17] MEDS ORDERED: TAMS5CAP PO (15:08)
[2017-01-17] MEDS ORDERED: FAMO20TA2 PO (15:08)
[2017-01-17] MEDS ORDERED: HYDR-3516 PO (15:45)
[2017-01-17] MEDS: ERTAPENEM INJ 1,000 MG in SODIUM CHLORIDE 0.9% INJ 100 ML IV SCH (16:27)
--- NOTE | 2017-01-17 16:37 | HHI.FF ---
Infusion Therapy Location of Infusion Therapy: [facility] Infusion Therapy Order Patient Information Appointment Date: Jan 17, 2017 Patient Weight 61.6 kg Diagnosis: Diagnosis Finegoldia magna empyema. Coded Allergies: Penicillin (Verified Allergy, Severe, 02/06/13) Administer Medication Ertapenem 1 gram IV q 24 hours Start Treatment: Jan 17, 2017 Stop Treatment: Jan 25, 2017 Additional Information Additional Instructions [x] Peripheral flush and dressing changes per protocol [x] Implanted port and central gasoline truck operator: * Implanted port: 10 ml Normal Saline followed by 5 ml Heparin 100 units/ml Heparin flush after each use and monthly to maintain. [] May leave port accessed during therapy. [] May leave peripheral site accessed for duration of therapy. [x] If patient has SOB or respiratory distress, check oxygen saturation. If less than 90% or clinical signs of respiratory distress, administer oxygen at 2 L/min. via nasal cannula and notify physician. [x] Anaphylaxis/Reaction orders: * Stop infusion. * Keep IV line open with saline flush. * Notify physician. * Monitor vital signs every 15 minutes until symptoms resolve. * Check Oxygen saturation; Oxygen at 2 L/min. via nasal cannula if less than 90% or clinical signs of respiratory distress. * Administer diphenhydramine (Benadryl) 25 mg IV STAT, (unless patient has received as pre-med). May repeat once, if necessary. * Solu-Cortef 250 mg IVP over 30-60 seconds, use 100 mg vials for each dissolution. * Epinephrine (1mg/1 ml) 0.3 mg subcutaneously or IVP now with any signs of respiratory distress. * Check with physician for new additional pre-med orders if patient is re- challenged or re-treated. [x] May remove PICC line when treatment complete, after confirming with Physician. [x] If the patient is admitted to the hospital, the ED, or transferred via [facility] , complete transfer form including medication reconciliation order sheet. Laboratory Tests Weekly Labs: CBC w/diff, Creatinine, LFT's (Hepatic function test) Additional Information Please draw weekly labs while on antibiotics and Call with abnormals, change in clinical condition or problems to: or ID Physician Follow up appt: Follow up with PCP Follow up with other MDs as planned. Counseling: Counseled about medication side effects Counseled about PICC/midline care and hand hygiene. Jenelle Boyd MD Jan 17, 2017 16:37
--- NOTE | 2017-01-17 16:38 | HHI.PR ---
Addendum to Inpatient Note Addendum Reason: Additional Documentation Additional Information Recd call from Hospitalist informing me patient being discharged to SNF Patient clinically doing well on regimen. Completed infusion orders in EMR. Jenelle Boyd MD Jan 17, 2017 16:38
[2017-01-17 20:00] VITALS: BP 125/66; PULSE 78; RESP 20; TEMP 97.7; O2SAT 97
[2017-01-17] MEDS: REMOVE OLD NICODERM (NICOTINE) PATCH TD SCH (20:26)
[2017-01-17] MEDS: REMOVE OLD PATCH T-DERMAL SCH (20:27)
[2017-01-17] MEDS: MELATONIN 5 MG TAB PO PRN (22:31)
[2017-01-18] MEDS: NIFEdipine 20 MG CAP PO SCH ×3 (05:25→21:06)
[2017-01-18 08:00] VITALS: BP 121/72; PULSE 76; RESP 18; TEMP 97.2; O2SAT 97
[2017-01-18] MEDS: FUROSEMIDE 20 MG TAB PO SCH (08:07)
[2017-01-18] MEDS: FAMOTIDINE 20 MG TAB PO SCH ×2 (08:07→21:06)
[2017-01-18] MEDS: FOLIC ACID 1 MG TAB PO SCH (08:07)
[2017-01-18] MEDS: TAMSULOSIN HCL 0.4 MG CAP PO SCH (08:07)
[2017-01-18] MEDS: DOCUSATE SODIUM 50 MG/SENNA 8.6 MG TAB PO SCH (08:07)
[2017-01-18] MEDS: METOPROLOL TARTRATE 25 MG TAB PO SCH ×2 (08:07→21:06)
[2017-01-18] MEDS: GABAPENTIN 400 MG CAP PO SCH ×3 (08:07→16:42)
[2017-01-18] MEDS: CALCIUM CARBONATE 500 MG CHEWABLE TAB CHEW SCH ×2 (08:08→21:06)
[2017-01-18] MEDS: POTASSIUM CHLORIDE 20 MEQ CONTROLLED RELEASE TAB PO SCH (08:08)
[2017-01-18] MEDS: NICOTINE 14 MG/24 HR PATCH TD SCH (08:09)
[2017-01-18] MEDS: LIDOCAINE HCL 5% PATCH TD SCH (08:09)
[2017-01-18] MEDS: ENOXAPARIN SODIUM 40 MG/0.4 ML SYRINGE SQ SCH (08:16)
[2017-01-18] MEDS: SODIUM CHLORIDE 0.9% FLUSH 5 ML FLUSH IVF SCH ×2 (08:17→21:08)
[2017-01-18] MEDS: ACETAMINOPHEN/HYDROcodone 325 MG/5 MG TAB PO PRN ×2 (11:28→18:28)
--- NOTE | 2017-01-18 14:05 | HHI.PR ---
Subjective Remarks Follow-up on patient with a history of trauma and empyema. Patient was seen and examined today. Patient has no new medical complaints today. He has consented to placement of midline. He understands he will be transferred to SNF facility in the near future. Patient denies any complaints of cough, fever or shortness of breath. Also denies any chest pain. Objective Vitals Vital Signs Date Time Temp Pulse Resp B/P Pulse Ox O2 Delivery O2 Flow Rate FiO2 01/18/17 08:00 97.2 76 18 121/72 97 01/17/17 20:00 97.7 78 20 125/66 97 I/O 01/17/17 01/17/17 01/17/17 01/18/17 01/18/17 01/18/17 07:00 15:00 23:00 07:00 15:00 23:00 Intake Total 240 ml 360 ml 240 ml 120 ml Output Total 700 ml 950 ml 300 ml 375 ml Balance -460 ml -590 ml -60 ml -255 ml Intake Oral 240 ml 360 ml 240 ml 120 ml IV Total 0 ml Output Urine Total 700 ml 950 ml 300 ml 375 ml # Voids 1 1 # Bowel Movements 0 0 0 Result Diagram: 01/14/1762701/14/17627 Objective Remarks GENERAL: Well-developed patient in no apparent distress. Lying in hospital bed. Comfortable. A&Ox3. CARDIOVASCULAR: Regular rate and rhythm. RESPIRATORY: No accessory muscle use. Breath sounds clear to auscultation bilaterally. NEUROLOGICAL: Awake and alert. Normal speech. PSYCHIATRIC: Appropriate mood and affect; insight and judgment normal. Procedures Intubation, extubation L sided VATS, multiple L chest tubes Urinary Catheter: No Date of Removal: Jan 02, 2017 Vascular Central Line Catheter: No Procedures Intubation, extubation L sided VATS, multiple L chest tubes Medications and IVs Current Medications Medications (Trade) Dose Ordered Sig/Jason Route Start Time Stop Time Status Last Admin (Pill Splitter) 1 ea UNSCH PRN OTHER 11/25/16 22:45 (Habitrol 14 Mg Patch.24 Hr) 1 patch DAILY TD 11/26/16 10:00 01/18/17 08:09 Miscellaneous Information 1 HS TD 11/26/16 21:00 01/17/17 20:26 (NS Flush) 2 ml UNSCH PRN IVF 12/05/16 12:15 12/26/16 14:43 (NS Flush) 2 ml BID IVF 12/05/16 12:15 01/18/17 08:17 (Narcan Inj) 0.4 mg UNSCH PRN IV 12/05/16 12:15 (Lovenox Inj) 40 mg Q24H SQ 12/06/16 11:00 01/18/17 08:16 (Melatonin) 5 mg HS PRN PO 12/07/16 00:15 01/17/17 22:31 (ZyPREXA ZYDIS ODT) 5 mg HS PRN PO 12/07/16 00:15 01/06/17 23:11 (Neurontin) 400 mg TID PO 12/14/16 13:00 01/18/17 11:27 (Pepcid) 20 mg BID PO 12/14/16 21:00 01/18/17 08:07 (Procardia) 20 mg Q8HR PO 12/18/16 14:00 01/18/17 13:18 (Tylenol) 650 mg Q4H PRN PO 12/19/16 12:30 12/22/16 13:00 (KCl) 40 meq DAILY PO 12/20/16 09:00 01/18/17 08:08 Calcium Carbonate 500 mg 500 mg Q12HR CHEW 12/20/16 09:00 01/18/17 08:08 (INVanz INJ/NS Inj) 100 ml @ 200 mls/hr Q24H IV 12/24/16 16:00 01/25/17 15:59 01/17/17 16:27 (Folate) 1 mg DAILY PO 12/28/16 11:45 01/18/17 08:07 (Lasix) 20 mg DAILY PO 12/29/16 09:00 01/18/17 08:07 (Flomax) 0.4 mg DAILY PO 01/02/17 17:23 01/18/17 08:07 (Lopressor) 25 mg Q12HR PO 01/04/17 21:00 01/18/17 08:07 (Zofran Odt) 4 mg Q6H PRN PO 01/04/17 15:00 (Lidoderm 5% Patch.12 Hr) 1 patch DAILY TD 01/08/17 09:00 01/18/17 08:09 Miscellaneous Information 1 HS T-DERMAL 01/08/17 21:00 01/17/17 20:27 ([place] 5-325 Mg) 1 tab Q6H PRN PO 01/09/17 09:45 01/18/17 11:28 (Roseanne-Colace) 1 tab DAILY PO 01/11/17 09:00 01/18/17 08:07 (Lactulose Liq) 30 ml DAILY PRN PO 01/10/17 10:45 (Imodium) 2 mg Q6H PRN PO 01/10/17 10:45 01/14/17 13:26 Date of Removal: Jan 02, 2017 A/P Problem List: (1) Fall from ladder ICD Code: W11.XXXA Status: Acute (2) Metabolic encephalopathy ICD Code: G93.41 Status: Resolved (3) Hypercapnic respiratory failure ICD Code: J96.92 Status: Resolved (4) Traumatic pneumothorax ICD Code: S27.0XXA Status: Acute (5) Lung contusion ICD Code: S27.329A Status: Acute (6) Multiple rib fractures ICD Code: S22.49XA Status: Acute (7) Fracture of transverse process of thoracic vertebra ICD Code: S22.009A Status: Acute (8) Lumbar transverse process fracture ICD Code: S32.008A Status: Acute (9) Left acetabular fracture ICD Code: S32.402A Status: Acute (10) Bilateral pubic rami fractures ICD Code: S32.591A Status: Acute (11) Sacral fracture, closed ICD Code: S32.10XA Status: Acute (12) HTN (hypertension) ICD Code: I10 Status: Acute (13) EtOH dependence ICD Code: F10.20 Status: Acute Assessment and Plan 58-year-old gentleman reportedly fell 20 feet off from a tree onto his back without loss of consciousness. He was brought in as a trauma alert. Patient arrived alert with mild confusion complaining of back pain and left chest pain. Patient had multiple left-sided rib fractures with hemopneumothorax. Patient also had multiple pelvic fractures with sacral fracture. Initially managed in critical care, improved clinically and was transferred to medical-surgical floor. The pt then had altered mental status and was transferred to the ICU and intubated. Antibiotics were adjusted, he was evaluated by neurology, he was extubated and is now back on med-surg floor and stable. Altered mental status, lethargy, Resolved -CT of the brain was negative - indicates that his friend could have given him Xanax, and there might be more in the room per previous note -Urine drug screen was only positive for opiates, no benzodiazepines -Mentation significantly improved with the decrease in pain medication. Status post fall: -Sustained multiple rib fractures, pelvic fractures with sacral fracture, nondisplaced acetabular fracture, thoracic and lumbar transverse process fractures. -Orthopedics cleared patient. Weightbearing as tolerated right lower extremity , toe-touch weightbearing left lower extremity. -Pain management with a bowel regimen. Lortab 5 mg every 6 hours as needed for pain. Lidoderm patch to area -Continue participation with PT/OT. -Discussed with Darell Mueller, orthopedic PA. Repeat x-rays obtained and reviewed by Ortho who recommends he is to continue his current weightbearing status of toe-touch only on the left lower extremity. -Patient ambulated 35 feet with PT today. Metabolic encephalopathy: Resolved. -Head CT was negative for intracranial hemorrhage. -MRI brain negative for any ischemia or acute abnormality. -EEG with no evidence of seizure activity, moderate encephalopathy. Neuro consult appreciated. Ammonia level normal. Possible delirium secondary to sepsis. Improved. He endorsed difficulty swallowing, but was evaluated by speech therapy who recommends regular diet and thin liquids. -PT/ OT. -Continue antibiotics. Pneumonia/ Left lung empyema: -S/p VATS, thoracotomy and decortication with evacuation of left empyema . -S/P Diflucan IV, Zosyn and Vancomycin. Chest tube removed. -Continue Ertapenem IV (tentative stop date: 01/25/2017 per ID) -Patient pulled out his central line. I reconsulted vascular access for PICC line placement but vascular kiln puller tells me that patient does not require a PICC and peripheral line can be placed. -Per ID, weekly CBC with diff, CMP, CRP while on antibiotics to be ordered and followed by hospitalist. Labs 01/14/17: CBC unremarkable except for mild anemia which appears stable, CMP which is unremarkable except for a slight elevation in AST 62 which is much improved from the previous value of 169 and elevation of alkaline phosphatase at 194 which is unchanged, CRP is 1 and sedimentation rate is 65. Will repeat laboratory studies in one week - 01/21/17. -Per ID may need follow up imaging. -If any change in clinical condition or questions please call ID eviction specialist for [facility]. -Call ID when patient is going to be discharged so DC orders for antibiotics can be placed - contacted Dr. Boyd who has recommended a midline placement. Patient originally refused but has now consented/vascular access consult requested again. Infusion orders completed in the EMR by ID. Chest x-ray ordered per IDs request. -Pain control with a bowel regimen. -Duoneb/albuterol treatments as needed. -Monitor respiratory status, continue Acapella. -PT/OT. -RT to monitor pulse oximetry. 99% on room air. Respiratory failure: Resolved. -Chest x-ray consistent with pulmonary edema. Echo with normal EF 55%. CT chest negative for PE, showed small bilateral pleural effusions and minimal airspace disease. Intubated for altered mental status, successfully extubated. -Continue Lasix, 20 mg po. -Monitor I/O's. -Oxygen and nebs as needed. -Incentive spirometry. ETOH abuse/dependence: -S/P CIWA protocol. Patient went through DTs. Patient was counseled about complete cessation. Unclear what his baseline is. -Minimize sedating medications. -Cessation resources upon discharge. History of hypomagnesemia - Last mag level 12/29/16 was 1.3. Repeat study 01/15/17 was 1.8. Elevated LFTs -AST and alkaline phosphatase have been elevated. Slight trend upwards. Repeat studies on 01/14 showed improvement with decrease in AST from 169 to 62 and ALT 87 to 57. -Liver US showing normal echotexture of the liver without focal lesion no ductal dilatation. There is heterogeneous pancreatic echotexture with minimal prominence of the pancreatic duct and small bilateral pleural effusions but otherwise negative. -Hepatitis C antibody reactive, follow up as outpatient. Macrocytic anemia: -Secondary to ETOH dependence. Hgb has been decreasing. Consistent with anemia of chronic disease. Stable at 10.9. -Continue Thiamine, folate. HTN: -Well controlled. -Continue Lopressor 50 mg twice a day, Lisinopril 20 mg daily, and Nifedipine 20 mg q8h. -Clonidine and Vasotec as needed. Diarrhea: -01/14: White blood cell count normal. C. difficile test negative. Patient endorses a history of IBS. Continue Imodium prn. Prophylaxis: Lovenox, SCDs. Discharge Planning Patient has been accepted by [facility]. Discharge pending placement of midline and clearance by ID. Attending Statement Patient seen. Agree with above. Problem Qualifiers (1) Fall from ladder: Qualified Code: W11.XXXA - Fall from ladder, initial encounter (2) Hypercapnic respiratory failure: Qualified Code: J96.02 - Acute respiratory failure with hypercapnia (3) Traumatic pneumothorax: Qualified Code: S27.0XXA - Traumatic pneumothorax, initial encounter (4) Lung contusion: Qualified Code: S27.321A - Contusion of left lung, initial encounter (5) Multiple rib fractures: Qualified Code: S22.42XA - Closed fracture of multiple ribs of left side, initial encounter (6) EtOH dependence: Rasheeda Garcia Jan 18, 2017 14:05 Josh Christie MD Jan 18, 2017 14:56
--- NOTE | 2017-01-18 14:54 | RADHPO ---
EXAM DATE/TIME: 01/18/2017 13:50 [place] COMPARISON: CHEST SINGLE AP, December 22, 2016, 9:01. INDICATIONS : Follow up chest trauma. MEDICAL HISTORY : Hemothorax, pneumothorax SURGICAL HISTORY : Thoracotomy ENCOUNTER: Subsequent ACUITY: 1 day PAIN SCORE: 0/10 LOCATION: Bilateral chest FINDINGS: PA and lateral views of the chest demonstrate the lungs to be symmetrically aerated without evidence of mass, infiltrate or effusion. Mild scarring is seen within the left costophrenic angle. The cardio mediastinal contours are unremarkable. A subacute left posterior seventh rib fracture again seen. Spi nal fusion plate noted at the base of the cervical spine. CONCLUSION: 1. Scarring within the left lung base. 2. Subacute fracture involving the left posterior seventh rib. Jordon Mcknight Jr., MD on January 18, 2017 at 14:51 Board Certified Radiologist. This report was verified electronically.
--- NOTE | 2017-01-18 15:23 | HHI.DCPOC ---
Discharge Care Plan Diagnosis: (1) Multiple rib fractures (2) Sacral fracture, closed (3) Pelvic fracture (4) Left acetabular fracture (5) Fracture of transverse process of thoracic vertebra (6) Lumbar transverse process fracture (7) Bilateral pubic rami fractures (8) Lung contusion (9) Metabolic encephalopathy (10) Hypercapnic respiratory failure (11) Traumatic pneumothorax (12) Fall from ladder (13) Empyema lung Goals to Promote Your Health * To prevent worsening of your condition and complications * To maintain your health at the optimal level Directions to Meet Your Goals Take your medications as prescribed Follow your dietary instruction Follow activity as directed Keep your appointments as scheduled Take your immunizations and boosters as scheduled If your symptoms worsen call your PCP, if no PCP go to Urgent Care Center or Emergency Room Smoking is Dangerous to Your Health. Avoid second hand smoke Call the 24-hour hour crisis hotline for domestic abuse at Rasheeda Garcia Jan 18, 2017 15:22
[2017-01-18] MEDS: ERTAPENEM INJ 1,000 MG in SODIUM CHLORIDE 0.9% INJ 100 ML IV SCH (16:43)
--- NOTE | 2017-01-18 16:46 | HHI.DS ---
Discharge Summary Admission Date Nov 25, 2016 at 20:44 Discharge Date: Jan 18, 2017 Admitting Diagnosis Fall, Traumatic PTX, Pelvic fx (1) Fall from ladder ICD Code: W11.XXXA (2) Metabolic encephalopathy ICD Code: G93.41 (3) Hypercapnic respiratory failure ICD Code: J96.92 (4) Traumatic pneumothorax ICD Code: S27.0XXA (5) Lung contusion ICD Code: S27.329A (6) Multiple rib fractures ICD Code: S22.49XA (7) Fracture of transverse process of thoracic vertebra ICD Code: S22.009A (8) Lumbar transverse process fracture ICD Code: S32.008A (9) Left acetabular fracture ICD Code: S32.402A (10) Bilateral pubic rami fractures ICD Code: S32.591A (11) Sacral fracture, closed ICD Code: S32.10XA (12) HTN (hypertension) ICD Code: I10 (13) EtOH dependence ICD Code: F10.20 Procedures Intubation, extubation L sided VATS, multiple L chest tubes Brief History - From Admission 58-year-old gentleman reportedly fell 20 feet off of a ladder onto his back without loss of consciousness. He may have been drinking. He was brought in as a trauma alert due to his age and the height of his fall. Patient arrived alert with mild confusion his [place] Coma Scale was 14 complaining of back pain and left chest pain. Patient had multiple left-sided rib fractures with hemopneumothorax. Chest tube inserted in the trauma bay with x-ray confirming position. Patient also had multiple pelvic fractures with sacral fracture nondisplaced acetabular fracture. Initially managed in critical care, improving clinically and was transferred to medical-surgical floor. Consulted for medical management of EtOH. Injuries Multiple LEFT rib fxs LEFT PTX Tiny LEFT hempPTX (w/ CT LEFT lower lobe contusion (spinal stenosis C6-C7) (Disk protrusion C7-T1- spinal stenosis) LEFT S2-S3 foramen fx (mild displaced) BILAT superior and inferior pubic rami fx (non-op) LEFT sacral Fx (non-op) LEFT acetabulum fx (non-displaced) (non-op) On examination, patient is very confused but able to respond to some questions and commands. Noted with some hallucinations. Ex- at the bedside, states patient is been drinking every day about 10 beers per day. She had actually brought the patient beer and made him drink while patient was laying in bed. As per RN, patient trying to pull out his chest tube, binder in place. On 2 L nasal cannula. Patient just had his nebulizer treatment. Denies pain and discomfort. Denies SOB/ dyspnea, but patient sounded with upper respiratory congestion. Denies chest pain, palpitations, headaches, dizziness. Denies fevers, chills, n/v/d. CBC/BMP: 01/14/17 0628 01/14/17627 Imaging Last Impressions Chest X-Ray 01/18/17 0000 Signed Impressions: Service Date/Time: Wednesday, January 18, 2017 13:50 - CONCLUSION: 1. Scarring within the left lung base. 2. Subacute fracture involving the left posterior seventh rib. Jordon Mcknight Jr., MD Pelvis X-Ray 01/17/17 0000 Signed Impressions: Service Date/Time: Tuesday, January 17, 2017 13:13 - CONCLUSION: Fractures as described above. Ralph Garcias MD FACR Head CT 01/05/17 0000 Signed Impressions: Service Date/Time: Thursday, January 05, 2017 16:20 - CONCLUSION: Stable appearance of the brain. No evidence of acute infarct, hemorrhage, mass or edema. Marino Walker MD Liver Ultrasound 12/27/16 0000 Signed Impressions: Service Date/Time: Tuesday, December 27, 2016 20:18 - CONCLUSION: 1. Small bilateral pleural effusions. 2. Heterogeneous pancreatic echotexture with minimal prominence of the pancreatic duct. 3. Otherwise negative. Alexis Bustillo MD Lower Extremity Ultrasound 12/23/16 0000 Signed Impressions: Service Date/Time: December 14:28 - CONCLUSION: Normal examination. Flako Salguero MD CT Angiography 12/22/16 0000 Signed Impressions: Service Date/Time: Thursday, December 22, 2016 16:20 - CONCLUSION: 1. There are no central pulmonary emboli identified. 2. Small bilateral pleural effusions that do not appear to be that complicated. 3. Patchy air-space disease in both lungs. Ralph Garcias MD FACR Brain MRI 12/22/16 0000 Signed Impressions: Service Date/Time: Thursday, December 22, 2016 15:53 - CONCLUSION: No acute disease. Drake Corona MD Shoulder X-Ray 12/13/16 1203 Signed Impressions: Service Date/Time: Tuesday, December 13, 2016 13:51 - CONCLUSION: Rib fractures with a small pleural effusion on the left. There is no evidence of shoulder fracture. Ralph Garcias MD FACR Chest CT 12/03/16 0000 Signed Impressions: Service Date/Time: Saturday, December 03, 2016 21:59 - CONCLUSION: 1. Left chest tube is present with the tip of the chest tube mostly above loculated air and fluid in the left pleural space. Cannot exclude a left-sided empyema. Patchy bronchopneumonia also suspected, right greater than left. Zachery Aquino MD Chest Tube Insertion 11/30/16 0000 Signed Impressions: Service Date/Time: Wednesday, November 30, 2016 09:48 - CONCLUSION: Uncomplicated chest tube placement as above. Drake Corona MD Cervical Spine CT 11/25/161950 Signed Impressions: Service Date/Time: November 20:06 - CONCLUSION: 1. No fracture or subluxation of the cervical spine. 2. Degenerative changes with a chronic appearing disc osteophyte complex and uncovertebral/facet osteoarthritis causing severe spinal and bilateral foraminal stenosis at C6-C7. 3. Small, age-indeterminate posterior disc protrusion at C7/T1 causing mild spinal stenosis. Neel Moyer MD Abdomen/Pelvis CT 11/25/161950 Signed Impressions: Service Date/Time: November 20:10 - CONCLUSION: 1. No evidence of acute visceral or injury. 2. Fractures of the left body and ala of the sacrum with mildly displaced fracturing in the region of the left S2/S3 foramen. 3. Bilateral superior and inferior pubic rami fractures and a nondisplaced fracture of the left acetabulum. 4. Small presacral and left iliopsoas hematomas. I don't see active bleeding. Neel Moyer MD Thoracic Spine CT 11/25/16 0000 Signed Impressions: Service Date/Time: November 20:10 - CONCLUSION: Left T12 transverse process and facet fracture, minimally displaced. Multiple left posterior rib fractures and placed refer to the chest CT report. Thoracic vertebral bodies are intact. No subluxations. Nele Moyer MD Lumbar Spine CT 11/25/16 0000 Signed Impressions: Service Date/Time: November 20:10 - CONCLUSION: 1. Minimally to mildly displaced left transverse process fractures of L1-L4. 2. Multilevel degenerative changes as above. Large right paracentral disc fragment at L4/L5, probably nonacute. Neel Moyer MD PE at Discharge GENERAL: Well-developed patient in no apparent distress. Lying in hospital bed. Comfortable. A&Ox3. CARDIOVASCULAR: Regular rate and rhythm. RESPIRATORY: No accessory muscle use. Breath sounds clear to auscultation bilaterally. NEUROLOGICAL: Awake and alert. Normal speech. PSYCHIATRIC: Appropriate mood and affect; insight and judgment normal. Procedures Intubation, extubation L sided VATS, multiple L chest tubes Urinary Catheter: No Date of Removal: Jan 02, 2017 Vascular Central Line Catheter: No Pt update on day of discharge Patient seen and examined today. He reports he is doing well without any acute medical complaints. He denies any chest pain, shortness of breath or cough. Initially patient refused midline placement but now states he will consent. He understands he is being transferred to [facility] for continued treatment. Hospital Course This is a 58-year-old gentleman who was intoxicated and fell 20 feet off of a ladder from a tree landing on his back. He did not lose consciousness. He sustained multiple left-sided rib fractures with hemopneumothorax, multiple pelvic fractures including a sacral fracture and a left nondisplaced acetabular fracture. Chest tube was placed in the trauma bay. There was no active bleeding evident on CT. Patient was asked to be seen in consultation by orthopedics who assessed the fractures were nonoperative and gave recommendations for weightbearing as tolerated on the right lower extremity and toe-touch weightbearing on the left. Initially patient was managed by the critical care service but after improving he was moved to the [facility] floor. Patient developed some increasing agitation and confusion that was felt to be due to DTs/alcohol withdrawal. Some CIWA protocol. As a result of his altered state patient pulled and his chest tube and had to undergo a replacement. He underwent an IR procedure with 250 cc drained from the loculated effusion in the left upper lobe. Chest x-ray revealed some patchy infiltrates consistent with pneumonia and patient was started on IV Levaquin. Patient's sensorium cleared. He was able to begin participation with PT and OT. Repeat CT was obtained which showed a loculated effusion was still present despite chest tube being in place. There was concern for empyema. Patient was started on IV Zosyn and Diflucan. On 12/05/16, patient underwent a left sided VATS, thoracotomy and decortication and placement of 2 new chest tubes. Patient was seen in consultation by infectious disease who discontinued the IV Zosyn and continued patient on by mouth Levaquin and vancomycin. Vancomycin was then discontinued and patient was continued on by mouth Levaquin and Flagyl. Patient had both chest tubes removed. 12/18/16 patient developed acute respiratory failure. Chest x-ray was obtained consistent with pulmonary edema probable CHF. Patient was treated with good response to Lasix. 2-D echocardiogram was obtained revealing EF of 55%. 12/23 patient developed worsening respiratory distress overnight code blue was called. Patient was transferred to ICU and intubated. Neuro was consulted. Head CT was done which was negative for intracranial hemorrhage. MRI of the brain showed no evidence of ischemia or acute abnormality. EEG showed no evidence of seizure activity but encephalopathy. Neurology signed off. He was changed to IV Levaquin and IV Flagyl and was started on Zyvox. 12/24 patient was extubated and was awake and alert. He was transferred out of ICU to hospitalist service. Patient was discontinued off the other antibiotics and started on Ertapenem. ID recommended 4 weeks of IV ertapenem to treat the [place] Empyema that grew from the intraop fluid. Patient unable to qualify for rehabilitation secondary to placement issues. He was accepted for transfer to [facility]. Patient continued his participation with physical and occupational therapy while in [place]. He was reevaluated Ortho and recommended to continue toe-touch weightbearing on the left lower extremity. Patient continued to be followed by ID while in [place] with recommendations to continue his IV ertapenem for 4 week total with a stop date of 01/21. Patient was accepted at [facility]. Midline access was placed at IDs request. Follow- up chest x-ray showed no evidence of mass, infiltrate or effusion. There was some mild scarring seen within the left costophrenic angle and subacute left posterior seventh rib fracture. Patient was cleared by both Ortho and ID to be transferred to [facility]. Pt Condition on Discharge: Stable Discharge Disposition: Discharge to SNF Discharge Time: > 30 minutes Discharge Instructions DIET: Follow Instructions for: As Tolerated, No Restrictions Activities you can perform: Shower/Bath, See Additionl Instruction Activities to Avoid: Concussion Sports, Strenuous Activity Other Activity Instructions: Weight bearing as tolerated Right leg. Toe touch weight bearing Left leg Follow up Referrals: Orthopedics - 2 Weeks @ [facility] with Geovanny Cooney MD PCP Follow-up - 1 Week New Medications: Ertapenem Inj (Invanz Inj) 1 Gm Vial 1000 MG IV DAILY Empyema Days 8 MG Walker with Front Wheels (Walker with Front Wheels) 1 Mis Mis 1 EA .ROUTE DIRECTED #1 Ref 0 EA Walker/Adult/Folding (Walker/Adult/Folding) 1 Mis Mis 1 EA .ROUTE DIRECTED #1 Ref 0 EA Wheelchair Elevated Leg (Wheelchair Elevated Leg) 1 Mis Mis 1 EA .ROUTE DIRECTED #1 Ref 0 EA Acetaminophen (Acetaminophen) 325 Mg Tab 650 MG PO Q4H PRN pain 1-3/ fever > 101 #30 TAB Amlodipine (Norvasc) 5 Mg Tab 5 MG PO DAILY #30 TAB Calcium Carbonate (Antacid) (Calcium Carbonate (Antacid)) 500 Mg Chew 500 MG CHEW Q12HR Hypocalcemia #60 EA Enoxaparin Inj (Lovenox Inj) 40 Mg/0.4 Ml Syr 40 MG SQ Q24H Prevent Blood Clot Days 30 INJECTION Famotidine (Famotidine) 20 Mg Tab 20 MG PO BID GERD #60 TAB Folic Acid (Folate) 1 Mg Tab 1 MG PO DAILY Alcohol dependence #30 TAB Furosemide (Furosemide) 20 Mg Tab 20 MG PO DAILY Fluid retention #30 TAB Gabapentin (Neurontin) 400 Mg Cap 400 MG PO TID Pain Days 30 CAP Hydrocodone-Acetaminophen (Hydrocodone-Acetaminophen) 5-325 mg Tab 1 TAB PO Q6H PRN PAIN SCALE 4 TO 10 #12 Ref 0 TAB Lactulose Liq (Lactulose Liq) 10 Gm/15 Ml Soln 30 ML PO DAILY Constipation Days 30 ML Lactulose Liq (Lactulose Liq) 10 Gm/15 Ml Soln 30 ML PO DAILY PRN CONSTIPATION Days 30 ML Lidocaine Patch 12 HR (Lidoderm Patch 12 HR) 5% Patch 1 PATCH TD DAILY Pain Management #30 BOX Lisinopril (Lisinopril) 20 Mg Tab 20 MG PO DAILY Blood Pressure Management Days 30 TAB Loperamide (Loperamide) 2 Mg Tab 2 MG PO Q6H PRN loose stool #30 TAB Melatonin (Melatonin) 5 Mg Tab 5 MG PO HS PRN sleep Days 30 TAB Metoprolol Tartrate (Lopressor) 50 Mg Tab 50 MG PO Q12HR Blood Pressure Management Days 30 TAB Metoprolol Tartrate (Metoprolol Tartrate) 25 Mg Tab 25 MG PO Q12HR Hypertension #60 TAB Metronidazole (Flagyl) 500 Mg Tab 500 MG PO Q8HR Infection Days 14 TAB Nicotine Patch (Nicotine Patch) 14 Mg/24 Hr Patch 1 PATCH TD DAILY Smoking Cessation #10 BOX Nifedipine (Nifedipine) 20 Mg Cap 20 MG PO Q8HR Hypertension #90 CAP Olanzapine Odt (Zyprexa Zydis) 5 Mg Tab 5 MG PO HS PRN SEE LABEL COMMENTS #30 TAB Oxycodone-Acetaminophen (Oxycodone-Acetaminophen) 10-325 mg Tab 1 TAB PO Q4H PRN BREAKTHROUGH PAIN Days 30 TAB Potassium Chloride Microencaps (Potassium Chloride Microencaps) 20 Meq Tab 40 MEQ PO DAILY Hypokalemia #30 TAB Sennosides-Docusate Sodium (Senna Plus 8.6-50 mg) 1 Tab Tab 1 TAB PO BID Constipation Days 30 TAB Sennosides-Docusate Sodium (Senna Plus 8.6-50 mg) 1 Tab Tab 1 TAB PO DAILY Constipation #30 TAB Tamsulosin (Flomax) 0.4 Mg Cap 0.4 MG PO DAILY BPH #30 CAP Continued Medications: Cyclobenzaprine Hcl (Flexeril) 10 Mg Tab 10 MG PO TIDPRN Tramadol Hcl (Tramadol Hcl) 50 Mg Tab 50 MG PO Q4HPRN Discontinued Medications: Ciprofloxacin Hcl (Cipro) 500 Mg Tab 500 MG PO BID #28 Hydrocodone-Acetaminophen (Hydrocodone-Acetaminophen) 10-325 mg Tab 1 TAB PO QID PRN PAIN Ref 0 TAB Hydromorphone Hcl (Dilaudid 2 Mg Tab) 2 Mg Tab 1 - 2 TABS OR Q4HPRN #30 Additional Information Written by Rasheeda Garcia PA-C acting as scribe for Dr. Christie on 01/18/17 at 16:47. All or portions of this note were transcribed by will Garcia PA-C. I, Dr. Josh Christie personally performed the history, physical exam, and medical decision making; and confirmed the accuracy of the information in the transcribed note. Authenticated by Dr. Josh Christie on 01/18/17 at 18:27. Rasheeda Garcia Jan 18, 2017 16:45 Josh Christie MD Jan 18, 2017 18:27
[2017-01-18 20:00] VITALS: BP 133/60; PULSE 79; RESP 18; TEMP 97.2; O2SAT 97
[2017-01-18] MEDS: REMOVE OLD PATCH T-DERMAL SCH (21:00)
[2017-01-18] MEDS: REMOVE OLD NICODERM (NICOTINE) PATCH TD SCH (21:00)
[2017-01-18] MEDS: MELATONIN 5 MG TAB PO PRN (21:17)
[2017-01-19] MEDS: NIFEdipine 20 MG CAP PO SCH ×3 (06:18→15:57)
[2017-01-19 08:00] VITALS: BP 136/81; PULSE 75; RESP 18; TEMP 97.1; O2SAT 98
[2017-01-19] MEDS: LIDOCAINE HCL 5% PATCH TD SCH (08:46)
[2017-01-19] MEDS: NICOTINE 14 MG/24 HR PATCH TD SCH (08:47)
[2017-01-19] MEDS: POTASSIUM CHLORIDE 20 MEQ CONTROLLED RELEASE TAB PO SCH (08:47)
[2017-01-19] MEDS: FUROSEMIDE 20 MG TAB PO SCH (08:47)
[2017-01-19] MEDS: TAMSULOSIN HCL 0.4 MG CAP PO SCH (08:47)
[2017-01-19] MEDS: FAMOTIDINE 20 MG TAB PO SCH ×2 (08:48→20:29)
[2017-01-19] MEDS: CALCIUM CARBONATE 500 MG CHEWABLE TAB CHEW SCH ×2 (08:48→20:29)
[2017-01-19] MEDS: GABAPENTIN 400 MG CAP PO SCH ×3 (08:48→16:07)
[2017-01-19] MEDS: METOPROLOL TARTRATE 25 MG TAB PO SCH ×2 (08:48→20:29)
[2017-01-19] MEDS: FOLIC ACID 1 MG TAB PO SCH (08:48)
[2017-01-19] MEDS: ACETAMINOPHEN/HYDROcodone 325 MG/5 MG TAB PO PRN ×3 (08:48→21:59)
[2017-01-19] MEDS: SODIUM CHLORIDE 0.9% FLUSH 5 ML FLUSH IVF SCH ×2 (08:48→20:29)
[2017-01-19] MEDS: DOCUSATE SODIUM 50 MG/SENNA 8.6 MG TAB PO SCH (08:48)
--- NOTE | 2017-01-19 09:49 | HHI.PR ---
Subjective Remarks Patient seen and examined today. Patient was [facility] to [facility] yesterday, however it is indicated that [facility] did not accept the patient because he was receiving IV antibiotics. Objective Vitals Vital Signs Date Time Temp Pulse Resp B/P Pulse Ox O2 Delivery O2 Flow Rate FiO2 01/19/17 08:00 97.1 75 18 136/81 98 01/18/17 20:00 97.2 79 18 133/60 97 I/O 01/18/17 01/18/17 01/18/17 01/19/17 01/19/17 01/19/17 07:00 15:00 23:00 07:00 15:00 23:00 Intake Total 900 ml 480 ml 340 ml Output Total 1525 ml 350 ml Balance -625 ml 130 ml 340 ml Intake Oral 900 ml 480 ml 340 ml Output Urine Total 1525 ml 350 ml # Voids 1 1 # Bowel Movements 0 0 2 Objective Remarks GENERAL: Well-developed, well-nourished, in no acute distress. somnolent, but orientated HEENT: Head is normocephalic without any lesions or masses noted. Facial features are symmetric. Eyes: Extraocular muscles are intact. Conjunctivae were clear. NECK: Supple without any masses. Trachea midline no deviation. No JVD, CARDIAC: Regular rhythm, regular rate. S1/S2 are heard. No murmurs gallops or rubs. LUNGS: Clear to auscultation bilaterally. No wheeze, rhonchi or rales. No use of accessory muscles on inspiration or expiration. ABDOMEN: Soft, nontender. Nondistended. Bowel sounds heard in all 4 quadrants. No organomegaly or masses. Negative rebound, negative guarding EXTREMITIES: No edema, pulses are equal bilaterally. No cyanosis or clubbing NEUROLOGY: Mood and affect appear appropriate. Cranial nerves II through XII grossly intact. Moving all extremities. Speech is clear Procedures Intubation, extubation L sided VATS, multiple L chest tubes Urinary Catheter: No Date of Removal: Jan 02, 2017 Vascular Central Line Catheter: Yes Assessment to: Continue A/P Assessment and Plan Altered mental status, lethargy, resolved -CT of the brain was negative - indicates that his friend could have gave him Xanax, and there might be more in the room -Urine drug screen was only positive for opiates, no benzodiazepines -Mentation significantly improved with the decrease in pain medication. Status post fall: -Sustained multiple rib fractures, pelvic fractures with sacral fracture, nondisplaced acetabular fracture, thoracic and lumbar transverse process fractures. -Orthopedics cleared patient. Weightbearing as tolerated right lower extremity , toe-touch weightbearing left lower extremity. -Pain management E force research was performed which did indicate patient was on morphine 60 mg every 8 hours and Lortab 10 every 6 hours. Patient states that he did not take the morphine and only took a Lortab Lortab 5 mg every 6 hours as needed for pain, maintain this dose since patient is now alert and orientated Lidoderm patch to area -PT/OT. Pneumonia/ Left lung empyema: -S/p VATS, thoracotomy and decortication with evacuation of left empyema . -S/P Diflucan IV, Zosyn and Vancomycin. Chest tube removed. -Continue Ertapenem IV (tentative stop date: 01/25/2017 per ID) -Midline in place for antibiotics 01/18/17 -Per ID, weekly CBC with diff, CMP, CRP while on antibiotics to be ordered and followed by hospitalist. -Per ID may need follow up imaging. -If any change in clinical condition or questions please call ID packer insulation for [place]. -Call ID when patient is going to be discharged so DC orders for antibiotics can be placed. Urine discoloration: Resolved -Urinalysis was performed which did indicate hematuria. This is likely secondary to indwelling Guillaume catheter removed. -Patient with condom catheter at this time, urine coloration has improved -Try to avoid use of condom catheter -Urine culture shows no growth for 24 hours Metabolic encephalopathy: Resolved. -Head CT was negative for intracranial hemorrhage. -MRI brain negative for any ischemia or acute abnormality. -EEG with no evidence of seizure activity, moderate encephalopathy. Neuro consult appreciated. Ammonia level normal. Possible delirium secondary to sepsis. Improved. He endorsed difficulty swallowing, but was evaluated by speech therapy who recommends regular diet and thin liquids. -PT/ OT. -Continue antibiotics. Respiratory failure: Resolved -Chest x-ray consistent with pulmonary edema. Echo with normal EF 55%. CT chest negative for PE, showed small bilateral pleural effusions and minimal airspace disease. Intubated for altered mental status, successfully extubated. -Continue Lasix, 20 mg po. -Incentive spirometry. EtOH abuse/dependence: -S/P CIWA protocol. Patient went through DTs. Patient was counseled about complete cessation. Unclear what his baseline is. -Minimize sedating medications. -Cessation resources upon discharge. Elevated LFTs, chronic -AST and alkaline phosphatase have been elevated. -Liver US showing normal echotexture of the liver without focal lesion no ductal dilatation. There is heterogeneous pancreatic echotexture with minimal prominence of the pancreatic duct and small bilateral pleural effusions but otherwise negative. -Hepatitis C antibody reactive. Macrocytic anemia: -Secondary to EtOH dependence. Hgb has been decreasing. Consistent with anemia of chronic disease. Stable 8.6. -Thiamine, folate. Hypertension: Low blood pressure this time, adjust medications -Continue Lopressor 50 mg twice a day, Lisinopril 20 mg daily, and Nifedipine 20 mg q8h. -Clonidine and Vasotec as needed. Diarrhea: -12/31: White blood cell count normal. C. difficile test negative. Patient endorses a history of IBS. Imodium ordered. Prophylaxis: Lovenox, SCDs. Discharge Planning Discharge planning per case management. Plans were for patient be discharged [facility], however it was indicated that initially did not realize patient was receiving IV antibiotics. Discharge was held. Attending Statement Patient seen. Agree with above. Josh Kraft Jan 19, 2017 09:49 Josh Christie MD Jan 19, 2017 16:36
[2017-01-19] MEDS: ENOXAPARIN SODIUM 40 MG/0.4 ML SYRINGE SQ SCH (10:57)
[2017-01-19] MEDS: ERTAPENEM INJ 1,000 MG in SODIUM CHLORIDE 0.9% INJ 100 ML IV SCH (15:57)
[2017-01-19 20:00] VITALS: BP 115/65; PULSE 78; RESP 20; TEMP 97.6; O2SAT 98
[2017-01-19] MEDS: REMOVE OLD PATCH T-DERMAL SCH (20:29)
[2017-01-19] MEDS: REMOVE OLD NICODERM (NICOTINE) PATCH TD SCH (20:30)
[2017-01-19] MEDS: MELATONIN 5 MG TAB PO PRN (21:59)
[2017-01-20] MEDS: NIFEdipine 20 MG CAP PO SCH ×3 (05:56→21:34)
[2017-01-20 08:22] VITALS: BP 128/67; PULSE 69; RESP 18; TEMP 96.6; O2SAT 99
[2017-01-20] MEDS: SODIUM CHLORIDE 0.9% FLUSH 5 ML FLUSH IVF SCH ×2 (09:00→20:16)
[2017-01-20] MEDS: ACETAMINOPHEN/HYDROcodone 325 MG/5 MG TAB PO PRN ×3 (09:05→21:35)
[2017-01-20] MEDS: ENOXAPARIN SODIUM 40 MG/0.4 ML SYRINGE SQ SCH (09:05)
[2017-01-20] MEDS: TAMSULOSIN HCL 0.4 MG CAP PO SCH (09:05)
[2017-01-20] MEDS: POTASSIUM CHLORIDE 20 MEQ CONTROLLED RELEASE TAB PO SCH (09:06)
[2017-01-20] MEDS: FUROSEMIDE 20 MG TAB PO SCH (09:06)
[2017-01-20] MEDS: DOCUSATE SODIUM 50 MG/SENNA 8.6 MG TAB PO SCH (09:06)
[2017-01-20] MEDS: METOPROLOL TARTRATE 25 MG TAB PO SCH ×2 (09:06→20:17)
[2017-01-20] MEDS: FAMOTIDINE 20 MG TAB PO SCH ×2 (09:06→20:17)
[2017-01-20] MEDS: NICOTINE 14 MG/24 HR PATCH TD SCH (09:06)
[2017-01-20] MEDS: LIDOCAINE HCL 5% PATCH TD SCH (09:06)
[2017-01-20] MEDS: FOLIC ACID 1 MG TAB PO SCH (09:06)
[2017-01-20] MEDS: GABAPENTIN 400 MG CAP PO SCH ×3 (09:06→16:29)
[2017-01-20] MEDS: CALCIUM CARBONATE 500 MG CHEWABLE TAB CHEW SCH ×2 (09:06→20:17)
[2017-01-20 13:10] VITALS: BP 120/68; PULSE 66; RESP 14; TEMP 97.2; O2SAT 100
--- NOTE | 2017-01-20 14:52 | HHI.PR ---
Subjective Remarks Patient seen and examined today. Patient denies any new complaints. Awaiting for antibiotics to be completed Objective Vitals Vital Signs Date Time Temp Pulse Resp B/P Pulse Ox O2 Delivery O2 Flow Rate FiO2 01/20/17 10:35 14 01/20/17 08:22 96.6 69 18 128/67 99 01/19/17 20:00 97.6 78 20 115/65 98 I/O 01/19/17 01/19/17 01/19/17 01/20/17 01/20/17 01/20/17 07:00 15:00 23:00 07:00 15:00 23:00 Intake Total 340 ml 240 ml 480 ml Output Total 1250 ml Balance 340 ml 240 ml -770 ml Intake Oral 340 ml 240 ml 480 ml Output Urine Total 1250 ml # Voids 1 1 # Bowel Movements 2 1 1 Objective Remarks GENERAL: Well-developed, well-nourished, in no acute distress. somnolent, but orientated HEENT: Head is normocephalic without any lesions or masses noted. Facial features are symmetric. Eyes: Extraocular muscles are intact. Conjunctivae were clear. NECK: Supple without any masses. Trachea midline no deviation. No JVD, CARDIAC: Regular rhythm, regular rate. S1/S2 are heard. No murmurs gallops or rubs. LUNGS: Clear to auscultation bilaterally. No wheeze, rhonchi or rales. No use of accessory muscles on inspiration or expiration. ABDOMEN: Soft, nontender. Nondistended. Bowel sounds heard in all 4 quadrants. No organomegaly or masses. Negative rebound, negative guarding EXTREMITIES: No edema, pulses are equal bilaterally. No cyanosis or clubbing NEUROLOGY: Mood and affect appear appropriate. Cranial nerves II through XII grossly intact. Moving all extremities. Speech is clear Procedures Intubation, extubation L sided VATS, multiple L chest tubes Urinary Catheter: No Date of Removal: Jan 02, 2017 Vascular Central Line Catheter: Yes Assessment to: Continue A/P Assessment and Plan Altered mental status, lethargy, resolved -CT of the brain was negative - indicates that his friend could have gave him Xanax, and there might be more in the room -Urine drug screen was only positive for opiates, no benzodiazepines -Mentation significantly improved with the decrease in pain medication. Status post fall: -Sustained multiple rib fractures, pelvic fractures with sacral fracture, nondisplaced acetabular fracture, thoracic and lumbar transverse process fractures. -Orthopedics cleared patient. Weightbearing as tolerated right lower extremity , toe-touch weightbearing left lower extremity. -Pain management E force research was performed which did indicate patient was on morphine 60 mg every 8 hours and Lortab 10 every 6 hours. Patient states that he did not take the morphine and only took a Lortab Lortab 5 mg every 6 hours as needed for pain, maintain this dose since patient is now alert and orientated Lidoderm patch to area -PT/OT. Pneumonia/ Left lung empyema: -S/p VATS, thoracotomy and decortication with evacuation of left empyema . -S/P Diflucan IV, Zosyn and Vancomycin. Chest tube removed. -Continue Ertapenem IV (tentative stop date: 01/25/2017 per ID) -Midline in place for antibiotics 01/18/17 -Per ID, weekly CBC with diff, CMP, CRP while on antibiotics to be ordered and followed by hospitalist. -Per ID may need follow up imaging. -If any change in clinical condition or questions please call ID labor commissioner for [place]. -Call ID when patient is going to be discharged so DC orders for antibiotics can be placed. Urine discoloration: Resolved -Urinalysis was performed which did indicate hematuria. This is likely secondary to indwelling Guillaume catheter removed. -Patient with condom catheter at this time, urine coloration has improved -Try to avoid use of condom catheter -Urine culture shows no growth for 24 hours Metabolic encephalopathy: Resolved. -Head CT was negative for intracranial hemorrhage. -MRI brain negative for any ischemia or acute abnormality. -EEG with no evidence of seizure activity, moderate encephalopathy. Neuro consult appreciated. Ammonia level normal. Possible delirium secondary to sepsis. Improved. He endorsed difficulty swallowing, but was evaluated by speech therapy who recommends regular diet and thin liquids. -PT/ OT. -Continue antibiotics. Respiratory failure: Resolved -Chest x-ray consistent with pulmonary edema. Echo with normal EF 55%. CT chest negative for PE, showed small bilateral pleural effusions and minimal airspace disease. Intubated for altered mental status, successfully extubated. -Continue Lasix, 20 mg po. -Incentive spirometry. EtOH abuse/dependence: -S/P CIWA protocol. Patient went through DTs. Patient was counseled about complete cessation. Unclear what his baseline is. -Minimize sedating medications. -Cessation resources upon discharge. Elevated LFTs, chronic -AST and alkaline phosphatase have been elevated. -Liver US showing normal echotexture of the liver without focal lesion no ductal dilatation. There is heterogeneous pancreatic echotexture with minimal prominence of the pancreatic duct and small bilateral pleural effusions but otherwise negative. -Hepatitis C antibody reactive. Macrocytic anemia: -Secondary to EtOH dependence. Hgb has been decreasing. Consistent with anemia of chronic disease. Stable 8.6. -Thiamine, folate. Hypertension: Low blood pressure this time, adjust medications -Continue Lopressor 50 mg twice a day, Lisinopril 20 mg daily, and Nifedipine 20 mg q8h. -Clonidine and Vasotec as needed. Diarrhea: -12/31: White blood cell count normal. C. difficile test negative. Patient endorses a history of IBS. Imodium ordered. Prophylaxis: Lovenox, SCDs. Discharge Planning Discharge planning per case management. [facility], however it was indicated that initially did not realize patient was receiving IV antibiotics. Discharge was held. Josh Kraft Jan 20, 2017 14:52
[2017-01-20] MEDS: ERTAPENEM INJ 1,000 MG in SODIUM CHLORIDE 0.9% INJ 100 ML IV SCH (16:28)
[2017-01-20 17:10] VITALS: BP 133/89; PULSE 78; RESP 14; O2SAT 99
[2017-01-20 20:00] VITALS: BP 142/72; PULSE 76; RESP 21; TEMP 97.7; O2SAT 100
[2017-01-20] MEDS: REMOVE OLD PATCH T-DERMAL SCH (20:20)
[2017-01-20] MEDS: REMOVE OLD NICODERM (NICOTINE) PATCH TD SCH (20:20)
[2017-01-20] MEDS: MELATONIN 5 MG TAB PO PRN (21:34)
[2017-01-21] VITALS: BP 122/64; PULSE 73; RESP 19; TEMP 96.5; O2SAT 100
[2017-01-21 04:00] VITALS: BP 122/64; PULSE 73; RESP 19; TEMP 96.7; O2SAT 100
[2017-01-21] MEDS: NIFEdipine 20 MG CAP PO SCH ×3 (05:47→21:09)
[2017-01-21 06:56] LABS: AUTOMATED NEUTROPHIL # 2.4 TH/MM3 (1.8-7.7); BASOPHIL # 0.1 TH/MM3 (0-0.2); EOSINOPHIL # 0.6 TH/MM3 (0-0.4); EOSINOPHIL % 11.7 % (0.0-4.0); HEMO FLAGS DIFF FINAL; LYMPH % 25.7 % (9.0-44.0); LYMPHOCYTE # 1.3 TH/MM3 (1.0-4.8); MEAN CELL VOLUME 95.3 FL (80.0-100.0); MEAN CORPUSCULAR HEMOGLOBIN 32.3 PG (27.0-34.0); MEAN CORPUSCULAR HGB CONC 33.8 % (32.0-36.0); MONO % 11.7 % (0.0-8.0); NEUT % 48.9 % (16.0-70.0); PLATELET COUNT 170 TH/MM3 (150-450); RED BLOOD COUNT 3.36 MIL/MM3 (4.50-5.90); RED CELL DISTRIBUTION WIDTH 13.9 % (11.6-17.2)
[2017-01-21 07:04] LABS: CHLORIDE 104 MEQ/L (98-107); POTASSIUM 4.1 MEQ/L (3.5-5.1); SODIUM (NA) 139 MEQ/L (136-145)
[2017-01-21 07:08] LABS: ANION GAP 8 MEQ/L (5-15); BICARBONATE 26.6 MEQ/L (21.0-32.0); BLOOD UREA NITROGEN 10 MG/DL (7-18)
[2017-01-21 07:11] LABS: ALT (GPT) 43 U/L (12-78)
[2017-01-21 07:12] LABS: AST (GOT) 48 U/L (15-37); GLOMERULAR FILTRATION RATE 172 ML/MIN (>89)
[2017-01-21 07:13] LABS: TOTAL BILIRUBIN ADULT 0.3 MG/DL (0.2-1.0)
[2017-01-21 07:14] LABS: ALKALINE PHOSPHATASE 182 U/L (45-117)
[2017-01-21 08:00] VITALS: BP 128/67; PULSE 71; RESP 18; TEMP 97.2; O2SAT 98
--- NOTE | 2017-01-21 08:45 | PD.ORT.PN ---
Subjective Subjective Remarks Pain controlled and doing well Objective Vitals Vital Signs Date Time Temp Pulse Resp B/P Pulse Ox O2 Delivery O2 Flow Rate FiO2 01/21/17 04:00 96.7 73 19 122/64 100 01/21/17 00:00 96.5 73 19 122/64 100 01/20/17 20:00 97.7 76 21 142/72 100 01/20/17 17:10 78 14 133/89 99 01/20/17 16:28 14 01/20/17 13:10 97.2 66 14 120/68 100 I/O 01/20/17 01/20/17 01/20/17 01/21/17 01/21/17 01/21/17 07:00 15:00 23:00 07:00 15:00 23:00 Intake Total 480 ml 1452 ml 240 ml Output Total 1250 ml 300 ml 800 ml Balance -770 ml 1152 ml -560 ml Intake Oral 480 ml 1452 ml 240 ml Output Urine Total 1250 ml 300 ml 800 ml # Voids 4 # Bowel Movements 1 1 Result Diagram: 01/21/17 0630 01/21/17 0630 Imaging Last 24 hours Impressions Chest X-Ray 11/26/16 0000 Signed Impressions: Service Date/Time: Saturday, November 26, 2016 03:32 - CONCLUSION: 1. Left chest tube remains present and there is likely a tiny left apical pneumothorax present. There is stable air along the left chest wall. 2. Stable left lung base airspace opacity representing either atelectasis or consolidation. Neel Mahan MD Pelvis X-Ray 11/25/161950 Signed Impressions: Service Date/Time: November 19:44 - CONCLUSION: Bilateral pubic rami and left sacral fractures. Neel Moyer MD Head CT 11/25/161950 Signed Impressions: Service Date/Time: November 20:06 - CONCLUSION: Motion degraded study without convincing evidence of acute intracranial hemorrhage. Followup noncontrasted head CT suggested in 24 hours. Neel Moyer MD Chest X-Ray 11/25/161950 Signed Impressions: Service Date/Time: November 19:44 - CONCLUSION: Multiple posterior left rib fractures with a left base parenchymal contusion. Neel Moyer MD Chest CT 11/25/161950 Signed Impressions: Service Date/Time: November 20:10 - CONCLUSION: Multiple left rib fractures with moderate left pneumothorax, tiny left hemothorax and probable contusion of the left lower lobe. Neel Moyer MD Cervical Spine CT 11/25/161950 Signed Impressions: Service Date/Time: November 20:06 - CONCLUSION: 1. No fracture or subluxation of the cervical spine. 2. Degenerative changes with a chronic appearing disc osteophyte complex and uncovertebral/facet osteoarthritis causing severe spinal and bilateral foraminal stenosis at C6-C7. 3. Small, age-indeterminate posterior disc protrusion at C7/T1 causing mild spinal stenosis. Neel Moyer MD Abdomen/Pelvis CT 11/25/161950 Signed Impressions: Service Date/Time: November 20:10 - CONCLUSION: 1. No evidence of acute visceral or injury. 2. Fractures of the left body and ala of the sacrum with mildly displaced fracturing in the region of the left S2/S3 foramen. 3. Bilateral superior and inferior pubic rami fractures and a nondisplaced fracture of the left acetabulum. 4. Small presacral and left iliopsoas hematomas. I don't see active bleeding. Neel Moyer MD Objective Remarks Bilateral lower extremities: Intact sensation distally with strong dorsiflexion plantar flexion of feet. No pain with passive range of motion of bilateral hips. Active leglifts illicit no pain Assessment & Plan Assessment and Plan 1) Left Sacral Fxs 2) Bilateral sup/inf rami fxs Nonoperative treatment Continue weightbearing as tolerated right lower extremity and progress to 50% weightbearing left lower extremity Walker training Continue with discharge planning Follow-up x-rays in 3-[address] Cooney in office Jovan Mueller Jr. Jan 21, 2017 08:45
[2017-01-21] MEDS: CALCIUM CARBONATE 500 MG CHEWABLE TAB CHEW SCH ×2 (09:44→21:09)
[2017-01-21] MEDS: SODIUM CHLORIDE 0.9% FLUSH 5 ML FLUSH IVF SCH ×2 (09:44→21:13)
[2017-01-21] MEDS: DOCUSATE SODIUM 50 MG/SENNA 8.6 MG TAB PO SCH (09:45)
[2017-01-21] MEDS: METOPROLOL TARTRATE 25 MG TAB PO SCH ×2 (09:45→21:09)
[2017-01-21] MEDS: TAMSULOSIN HCL 0.4 MG CAP PO SCH (09:45)
[2017-01-21] MEDS: LIDOCAINE HCL 5% PATCH TD SCH (09:45)
[2017-01-21] MEDS: GABAPENTIN 400 MG CAP PO SCH ×3 (09:45→18:13)
[2017-01-21] MEDS: FOLIC ACID 1 MG TAB PO SCH (09:45)
[2017-01-21] MEDS: POTASSIUM CHLORIDE 20 MEQ CONTROLLED RELEASE TAB PO SCH (09:45)
[2017-01-21] MEDS: FAMOTIDINE 20 MG TAB PO SCH ×2 (09:45→21:09)
[2017-01-21] MEDS: FUROSEMIDE 20 MG TAB PO SCH (09:45)
[2017-01-21] MEDS: NICOTINE 14 MG/24 HR PATCH TD SCH (09:46)
[2017-01-21] MEDS: ENOXAPARIN SODIUM 40 MG/0.4 ML SYRINGE SQ SCH (10:24)
[2017-01-21] MEDS: ACETAMINOPHEN/HYDROcodone 325 MG/5 MG TAB PO PRN ×3 (10:25→22:05)
--- NOTE | 2017-01-21 14:11 | HHI.PR ---
Subjective Remarks Patient seen and examined today. Patient denies any new complaints. no change in clinical status, patient did fall yesterday, without any injury Objective Vitals Vital Signs Date Time Temp Pulse Resp B/P Pulse Ox O2 Delivery O2 Flow Rate FiO2 01/21/17 11:25 18 01/21/17 08:00 97.2 71 18 128/67 98 01/21/17 04:00 96.7 73 19 122/64 100 01/21/17 00:00 96.5 73 19 122/64 100 01/20/17 20:00 97.7 76 21 142/72 100 01/20/17 17:10 78 14 133/89 99 I/O 01/20/17 01/20/17 01/20/17 01/21/17 01/21/17 01/21/17 07:00 15:00 23:00 07:00 15:00 23:00 Intake Total 480 ml 1452 ml 240 ml Output Total 1250 ml 300 ml 800 ml Balance -770 ml 1152 ml -560 ml Intake Oral 480 ml 1452 ml 240 ml Output Urine Total 1250 ml 300 ml 800 ml # Voids 4 # Bowel Movements 1 1 Result Diagram: 01/21/1730 01/21/17 0630 Objective Remarks GENERAL: Well-developed, well-nourished, in no acute distress. somnolent, but orientated HEENT: Head is normocephalic without any lesions or masses noted. Facial features are symmetric. Eyes: Extraocular muscles are intact. Conjunctivae were clear. NECK: Supple without any masses. Trachea midline no deviation. No JVD, CARDIAC: Regular rhythm, regular rate. S1/S2 are heard. No murmurs gallops or rubs. LUNGS: Clear to auscultation bilaterally. No wheeze, rhonchi or rales. No use of accessory muscles on inspiration or expiration. ABDOMEN: Soft, nontender. Nondistended. Bowel sounds heard in all 4 quadrants. No organomegaly or masses. Negative rebound, negative guarding EXTREMITIES: No edema, pulses are equal bilaterally. No cyanosis or clubbing NEUROLOGY: Mood and affect appear appropriate. Cranial nerves II through XII grossly intact. Moving all extremities. Speech is clear Procedures Intubation, extubation L sided VATS, multiple L chest tubes Urinary Catheter: No Date of Removal: Jan 02, 2017 Vascular Central Line Catheter: No A/P Assessment and Plan Altered mental status, lethargy, resolved -CT of the brain was negative - indicates that his friend could have gave him Xanax, and there might be more in the room -Urine drug screen was only positive for opiates, no benzodiazepines -Mentation significantly improved with the decrease in pain medication. Status post fall: -Sustained multiple rib fractures, pelvic fractures with sacral fracture, nondisplaced acetabular fracture, thoracic and lumbar transverse process fractures. -Orthopedics cleared patient. Weightbearing as tolerated right lower extremity , toe-touch weightbearing left lower extremity. -Pain management E force research was performed which did indicate patient was on morphine 60 mg every 8 hours and Lortab 10 every 6 hours. Patient states that he did not take the morphine and only took a Lortab Lortab 5 mg every 6 hours as needed for pain, maintain this dose since patient is now alert and orientated Lidoderm patch to area -PT/OT. Pneumonia/ Left lung empyema: -S/p VATS, thoracotomy and decortication with evacuation of left empyema . -S/P Diflucan IV, Zosyn and Vancomycin. Chest tube removed. -Continue Ertapenem IV (tentative stop date: 01/25/2017 per ID) -Midline in place for antibiotics 01/18/17 -Per ID, weekly CBC with diff, CMP, CRP while on antibiotics to be ordered and followed by hospitalist. -Per ID may need follow up imaging. -If any change in clinical condition or questions please call ID solutions consultant for [place]. -Call ID when patient is going to be discharged so DC orders for antibiotics can be placed. Urine discoloration: Resolved -Urinalysis was performed which did indicate hematuria. This is likely secondary to indwelling Guillaume catheter removed. -Patient with condom catheter at this time, urine coloration has improved -Try to avoid use of condom catheter -Urine culture shows no growth for 24 hours Metabolic encephalopathy: Resolved. -Head CT was negative for intracranial hemorrhage. -MRI brain negative for any ischemia or acute abnormality. -EEG with no evidence of seizure activity, moderate encephalopathy. Neuro consult appreciated. Ammonia level normal. Possible delirium secondary to sepsis. Improved. He endorsed difficulty swallowing, but was evaluated by speech therapy who recommends regular diet and thin liquids. -PT/ OT. -Continue antibiotics. Respiratory failure: Resolved -Chest x-ray consistent with pulmonary edema. Echo with normal EF 55%. CT chest negative for PE, showed small bilateral pleural effusions and minimal airspace disease. Intubated for altered mental status, successfully extubated. -Continue Lasix, 20 mg po. -Incentive spirometry. EtOH abuse/dependence: -S/P [facility] protocol. Patient went through DTs. Patient was counseled about complete cessation. Unclear what his baseline is. -Minimize sedating medications. -Cessation resources upon discharge. Elevated LFTs, chronic -AST and alkaline phosphatase have been elevated. -Liver US showing normal echotexture of the liver without focal lesion no ductal dilatation. There is heterogeneous pancreatic echotexture with minimal prominence of the pancreatic duct and small bilateral pleural effusions but otherwise negative. -Hepatitis C antibody reactive. Macrocytic anemia: -Secondary to EtOH dependence. Hgb has been decreasing. Consistent with anemia of chronic disease. Stable 8.6. -Thiamine, folate. Hypertension: Low blood pressure this time, adjust medications -Continue Lopressor 50 mg twice a day, Lisinopril 20 mg daily, and Nifedipine 20 mg q8h. -Clonidine and Vasotec as needed. Diarrhea: -12/31: White blood cell count normal. C. difficile test negative. Patient endorses a history of IBS. Imodium ordered. Prophylaxis: Lovenox, SCDs. Discharge Planning Discharge planning per case management. Plans were for patient be discharged yesterday to senior living facility, however it was indicated that initially did not realize patient was receiving IV antibiotics. Discharge was held. Josh Kraft Jan 21, 2017 14:11
[2017-01-21 14:20] VITALS: BP 123/63; PULSE 77; RESP 18; O2SAT 98
[2017-01-21] MEDS: ERTAPENEM INJ 1,000 MG in SODIUM CHLORIDE 0.9% INJ 100 ML IV SCH (16:00)
[2017-01-21 20:00] VITALS: BP 115/68; PULSE 80; RESP 19; TEMP 98.1; O2SAT 97
[2017-01-21] MEDS: REMOVE OLD PATCH T-DERMAL SCH (21:12)
[2017-01-21] MEDS: REMOVE OLD NICODERM (NICOTINE) PATCH TD SCH (21:13)
[2017-01-21] MEDS: MELATONIN 5 MG TAB PO PRN (22:05)
[2017-01-22] MEDS: NIFEdipine 20 MG CAP PO SCH ×3 (06:22→21:43)
[2017-01-22 08:00] VITALS: BP 127/68; PULSE 68; RESP 16; TEMP 97.1; O2SAT 98
[2017-01-22] MEDS: DOCUSATE SODIUM 50 MG/SENNA 8.6 MG TAB PO SCH (08:45)
[2017-01-22] MEDS: GABAPENTIN 400 MG CAP PO SCH ×3 (08:49→17:38)
[2017-01-22] MEDS: FOLIC ACID 1 MG TAB PO SCH (08:49)
[2017-01-22] MEDS: FAMOTIDINE 20 MG TAB PO SCH ×2 (08:50→20:49)
[2017-01-22] MEDS: METOPROLOL TARTRATE 25 MG TAB PO SCH ×2 (08:50→20:49)
[2017-01-22] MEDS: FUROSEMIDE 20 MG TAB PO SCH (08:50)
[2017-01-22] MEDS: POTASSIUM CHLORIDE 20 MEQ CONTROLLED RELEASE TAB PO SCH (08:50)
[2017-01-22] MEDS: SODIUM CHLORIDE 0.9% FLUSH 5 ML FLUSH IVF SCH ×2 (08:50→20:53)
[2017-01-22] MEDS: CALCIUM CARBONATE 500 MG CHEWABLE TAB CHEW SCH ×2 (08:50→20:49)
[2017-01-22] MEDS: TAMSULOSIN HCL 0.4 MG CAP PO SCH (08:50)
[2017-01-22] MEDS: NICOTINE 14 MG/24 HR PATCH TD SCH (08:51)
[2017-01-22] MEDS: LIDOCAINE HCL 5% PATCH TD SCH (08:51)
[2017-01-22] MEDS: ENOXAPARIN SODIUM 40 MG/0.4 ML SYRINGE SQ SCH (08:52)
[2017-01-22] MEDS: ACETAMINOPHEN/HYDROcodone 325 MG/5 MG TAB PO PRN ×3 (08:53→21:04)
--- NOTE | 2017-01-22 11:43 | HHI.PR ---
Subjective Remarks Patient seen and examined today. Patient denies any new complaints. No change in clinical status. Objective Vitals Vital Signs Date Time Temp Pulse Resp B/P Pulse Ox O2 Delivery O2 Flow Rate FiO2 01/22/17 10:00 16 01/22/17 08:00 97.1 68 16 127/68 98 01/21/17 20:00 98.1 80 19 115/68 97 01/21/17 14:20 77 18 123/63 98 I/O 01/21/17 01/21/17 01/21/17 01/22/17 01/22/17 01/22/17 06:59 14:59 22:59 06:59 14:59 22:59 Intake Total 240 ml 640 ml 464 ml 240 ml Output Total 800 ml 400 ml 800 ml 300 ml Balance -560 ml 640 ml 64 ml -560 ml -300 ml Intake Oral 240 ml 640 ml 360 ml 240 ml IV Total 104 ml Output Urine Total 800 ml 400 ml 800 ml 300 ml # Voids 3 # Bowel Movements 1 Result Diagram: 01/21/1762901/21/1730 Objective Remarks GENERAL: Well-developed, well-nourished, in no acute distress. somnolent, but orientated HEENT: Head is normocephalic without any lesions or masses noted. Facial features are symmetric. Eyes: Extraocular muscles are intact. Conjunctivae were clear. NECK: Supple without any masses. Trachea midline no deviation. No JVD, CARDIAC: Regular rhythm, regular rate. S1/S2 are heard. No murmurs gallops or rubs. LUNGS: Clear to auscultation bilaterally. No wheeze, rhonchi or rales. No use of accessory muscles on inspiration or expiration. ABDOMEN: Soft, nontender. Nondistended. Bowel sounds heard in all 4 quadrants. No organomegaly or masses. Negative rebound, negative guarding EXTREMITIES: No edema, pulses are equal bilaterally. No cyanosis or clubbing NEUROLOGY: Mood and affect appear appropriate. Cranial nerves II through XII grossly intact. Moving all extremities. Speech is clear Procedures Intubation, extubation L sided VATS, multiple L chest tubes Urinary Catheter: No Date of Removal: Jan 02, 2017 Vascular Central Line Catheter: Yes Assessment to: Continue A/P Assessment and Plan Altered mental status, lethargy, resolved -CT of the brain was negative - indicates that his friend could have gave him Xanax, and there might be more in the room -Urine drug screen was only positive for opiates, no benzodiazepines -Mentation significantly improved with the decrease in pain medication. Status post fall: -Sustained multiple rib fractures, pelvic fractures with sacral fracture, nondisplaced acetabular fracture, thoracic and lumbar transverse process fractures. -Orthopedics cleared patient. Weightbearing as tolerated right lower extremity , toe-touch weightbearing left lower extremity. -Pain management E force research was performed which did indicate patient was on morphine 60 mg every 8 hours and Lortab 10 every 6 hours. Patient states that he did not take the morphine and only took a Lortab Lortab 5 mg every 6 hours as needed for pain, maintain this dose since patient is now alert and orientated Lidoderm patch to area -PT/OT. Pneumonia/ Left lung empyema: -S/p VATS, thoracotomy and decortication with evacuation of left empyema . -S/P Diflucan IV, Zosyn and Vancomycin. Chest tube removed. -Continue Ertapenem IV (tentative stop date: 01/25/2017 per ID) -Midline in place for antibiotics 01/18/17 -Per ID, weekly CBC with diff, CMP, CRP while on antibiotics to be ordered and followed by hospitalist. -Per ID may need follow up imaging. -If any change in clinical condition or questions please call ID national sales for [place]. -Call ID when patient is going to be discharged so DC orders for antibiotics can be placed. Urine discoloration: Resolved -Urinalysis was performed which did indicate hematuria. This is likely secondary to indwelling Guillaume catheter removed. -Patient with condom catheter at this time, urine coloration has improved -Try to avoid use of condom catheter -Urine culture shows no growth for 24 hours Metabolic encephalopathy: Resolved. -Head CT was negative for intracranial hemorrhage. -MRI brain negative for any ischemia or acute abnormality. -EEG with no evidence of seizure activity, moderate encephalopathy. Neuro consult appreciated. Ammonia level normal. Possible delirium secondary to sepsis. Improved. He endorsed difficulty swallowing, but was evaluated by speech therapy who recommends regular diet and thin liquids. -PT/ OT. -Continue antibiotics. Respiratory failure: Resolved -Chest x-ray consistent with pulmonary edema. Echo with normal EF 55%. CT chest negative for PE, showed small bilateral pleural effusions and minimal airspace disease. Intubated for altered mental status, successfully extubated. -Continue Lasix, 20 mg po. -Incentive spirometry. EtOH abuse/dependence: -S/P CIWA protocol. Patient went through DTs. Patient was counseled about complete cessation. Unclear what his baseline is. -Minimize sedating medications. -Cessation resources upon discharge. Elevated LFTs, chronic -AST and alkaline phosphatase have been elevated. -Liver US showing normal echotexture of the liver without focal lesion no ductal dilatation. There is heterogeneous pancreatic echotexture with minimal prominence of the pancreatic duct and small bilateral pleural effusions but otherwise negative. -Hepatitis C antibody reactive. Macrocytic anemia: -Secondary to EtOH dependence. Hgb has been decreasing. Consistent with anemia of chronic disease. Stable 8.6. -Thiamine, folate. Hypertension: Low blood pressure this time, adjust medications -Continue Lopressor 50 mg twice a day, Lisinopril 20 mg daily, and Nifedipine 20 mg q8h. -Clonidine and Vasotec as needed. Diarrhea: -12/31: White blood cell count normal. C. difficile test negative. Patient endorses a history of IBS. Imodium ordered. Prophylaxis: Lovenox, SCDs. Discharge Planning Discharge planning per case management. Plans were for patient be discharged yesterday to senior living facility, however it was indicated that initially did not realize patient was receiving IV antibiotics. Discharge was held. Josh Kraft Jan 22, 2017 11:43
[2017-01-22] MEDS: ERTAPENEM INJ 1,000 MG in SODIUM CHLORIDE 0.9% INJ 100 ML IV SCH (16:39)
[2017-01-22 20:00] VITALS: BP 130/68; PULSE 74; RESP 16; TEMP 99; O2SAT 99
[2017-01-22] MEDS: REMOVE OLD NICODERM (NICOTINE) PATCH TD SCH (21:00)
[2017-01-22] MEDS: REMOVE OLD PATCH T-DERMAL SCH (21:00)
[2017-01-22] MEDS: MELATONIN 5 MG TAB PO PRN (21:03)
[2017-01-23] MEDS: NIFEdipine 20 MG CAP PO SCH ×3 (06:00→22:03)
[2017-01-23 08:00] VITALS: BP 138/74; PULSE 69; RESP 18; TEMP 96.9; O2SAT 98
[2017-01-23] MEDS: GABAPENTIN 400 MG CAP PO SCH ×3 (08:14→17:12)
[2017-01-23] MEDS: NICOTINE 14 MG/24 HR PATCH TD SCH (08:14)
[2017-01-23] MEDS: TAMSULOSIN HCL 0.4 MG CAP PO SCH (08:14)
[2017-01-23] MEDS: POTASSIUM CHLORIDE 20 MEQ CONTROLLED RELEASE TAB PO SCH (08:14)
[2017-01-23] MEDS: LIDOCAINE HCL 5% PATCH TD SCH (08:14)
[2017-01-23] MEDS: FOLIC ACID 1 MG TAB PO SCH (08:14)
[2017-01-23] MEDS: DOCUSATE SODIUM 50 MG/SENNA 8.6 MG TAB PO SCH (08:15)
[2017-01-23] MEDS: CALCIUM CARBONATE 500 MG CHEWABLE TAB CHEW SCH ×2 (08:15→20:27)
[2017-01-23] MEDS: FAMOTIDINE 20 MG TAB PO SCH ×2 (08:15→20:27)
[2017-01-23] MEDS: FUROSEMIDE 20 MG TAB PO SCH (08:15)
[2017-01-23] MEDS: ACETAMINOPHEN/HYDROcodone 325 MG/5 MG TAB PO PRN ×3 (08:15→22:04)
[2017-01-23] MEDS: METOPROLOL TARTRATE 25 MG TAB PO SCH ×2 (08:15→20:27)
[2017-01-23] MEDS: SODIUM CHLORIDE 0.9% FLUSH 5 ML FLUSH IVF SCH ×2 (09:29→20:28)
--- NOTE | 2017-01-23 11:32 | HHI.PR ---
Subjective Remarks Patient seen and examined today. Patient sitting up in chair comfortably, eating breakfast. No new complaints. States pain is adequately controlled. Wants to go home Tuesday, patient worried about making sure he has a ride home planned for when he is discharged. Objective Vitals Vital Signs Date Time Temp Pulse Resp B/P Pulse Ox O2 Delivery O2 Flow Rate FiO2 01/23/17 09:15 20 01/23/17 08:00 96.9 69 18 138/74 98 01/22/17 20:00 99.0 74 16 130/68 99 I/O 01/22/17 01/22/17 01/22/17 01/23/17 01/23/17 01/23/17 07:00 15:00 23:00 07:00 15:00 23:00 Intake Total 240 ml 360 ml 450 ml 240 ml Output Total 800 ml 300 ml 300 ml 250 ml Balance -560 ml 60 ml 150 ml -10 ml Intake Oral 240 ml 360 ml 450 ml 240 ml Output Urine Total 800 ml 300 ml 300 ml 250 ml # Voids 2 # Bowel Movements 0 0 0 Result Diagram: 01/21/1762901/21/17629 Objective Remarks GENERAL: Well-developed, well-nourished, in no acute distress. somnolent, but orientated HEENT: Head is normocephalic without any lesions or masses noted. Facial features are symmetric. Eyes: Extraocular muscles are intact. Conjunctivae were clear. NECK: Supple without any masses. Trachea midline no deviation. No JVD, CARDIAC: Regular rhythm, regular rate. S1/S2 are heard. No murmurs gallops or rubs. LUNGS: Clear to auscultation bilaterally. No wheeze, rhonchi or rales. No use of accessory muscles on inspiration or expiration. ABDOMEN: Soft, nontender. Nondistended. Bowel sounds heard in all 4 quadrants. No organomegaly or masses. Negative rebound, negative guarding EXTREMITIES: No edema, pulses are equal bilaterally. No cyanosis or clubbing NEUROLOGY: Mood and affect appear appropriate. Cranial nerves II through XII grossly intact. Moving all extremities. Speech is clear Procedures Intubation, extubation L sided VATS, multiple L chest tubes Urinary Catheter: No Date of Removal: Jan 02, 2017 Vascular Central Line Catheter: No A/P Assessment and Plan Altered mental status, lethargy, resolved -CT of the brain was negative - indicates that his friend could have gave him Xanax, and there might be more in the room -Urine drug screen was only positive for opiates, no benzodiazepines -Mentation significantly improved with the decrease in pain medication. Status post fall: -Sustained multiple rib fractures, pelvic fractures with sacral fracture, nondisplaced acetabular fracture, thoracic and lumbar transverse process fractures. -Orthopedics cleared patient. Weightbearing as tolerated right lower extremity , toe-touch weightbearing left lower extremity. -Pain management E force research was performed which did indicate patient was on morphine 60 mg every 8 hours and Lortab 10 every 6 hours. Patient states that he did not take the morphine and only took a Lortab Lortab 5 mg every 6 hours as needed for pain, maintain this dose since patient is now alert and orientated Lidoderm patch to area -PT/OT. Pneumonia/ Left lung empyema: -S/p VATS, thoracotomy and decortication with evacuation of left empyema . -S/P Diflucan IV, Zosyn and Vancomycin. Chest tube removed. -Continue Ertapenem IV (tentative stop date: 01/25/2017 per ID) -Midline in place for antibiotics 01/18/17 -Per ID, weekly CBC with diff, CMP, CRP while on antibiotics to be ordered and followed by hospitalist. -Per ID may need follow up imaging. -If any change in clinical condition or questions please call ID manager investigations for [place]. -Call ID when patient is going to be discharged so DC orders for antibiotics can be placed. Urine discoloration: Resolved -Urinalysis was performed which did indicate hematuria. This is likely secondary to indwelling Guillaume catheter removed. -Patient with condom catheter at this time, urine coloration has improved -Try to avoid use of condom catheter -Urine culture shows no growth for 24 hours Metabolic encephalopathy: Resolved. -Head CT was negative for intracranial hemorrhage. -MRI brain negative for any ischemia or acute abnormality. -EEG with no evidence of seizure activity, moderate encephalopathy. Neuro consult appreciated. Ammonia level normal. Possible delirium secondary to sepsis. Improved. He endorsed difficulty swallowing, but was evaluated by speech therapy who recommends regular diet and thin liquids. -PT/ OT. -Continue antibiotics. Respiratory failure: Resolved -Chest x-ray consistent with pulmonary edema. Echo with normal EF 55%. CT chest negative for PE, showed small bilateral pleural effusions and minimal airspace disease. Intubated for altered mental status, successfully extubated. -Continue Lasix, 20 mg po. -Incentive spirometry. EtOH abuse/dependence: -S/P CIVA protocol. Patient went through DTs. Patient was counseled about complete cessation. Unclear what his baseline is. -Minimize sedating medications. -Cessation resources upon discharge. Elevated LFTs, chronic -AST and alkaline phosphatase have been elevated. -Liver US showing normal echotexture of the liver without focal lesion no ductal dilatation. There is heterogeneous pancreatic echotexture with minimal prominence of the pancreatic duct and small bilateral pleural effusions but otherwise negative. -Hepatitis C antibody reactive. Macrocytic anemia: -Secondary to EtOH dependence. Hgb has been decreasing. Consistent with anemia of chronic disease. Stable 8.6. -Thiamine, folate. Hypertension: Low blood pressure this time, adjust medications -Continue Lopressor 50 mg twice a day, Lisinopril 20 mg daily, and Nifedipine 20 mg q8h. -Clonidine and Vasotec as needed. Diarrhea: -12/31: White blood cell count normal. C. difficile test negative. Patient endorses a history of IBS. Imodium ordered. Prophylaxis: Lovenox, SCDs. Discharge Planning Discharge planning per case management. Plans were for patient be discharged yesterday to detention facility, however it was indicated that initially did not realize patient was receiving IV antibiotics. Discharge was held. Josh Kraft Jan 23, 2017 11:32 yesterday to detention facility, however it was indicated that initially did not realize patient was receiving IV antibiotics. Discharge was held. Josh Kraft Jan 23, 2017 11:32
[2017-01-23] MEDS: ENOXAPARIN SODIUM 40 MG/0.4 ML SYRINGE SQ SCH (12:40)
[2017-01-23] MEDS: ERTAPENEM INJ 1,000 MG in SODIUM CHLORIDE 0.9% INJ 100 ML IV SCH (15:35)
[2017-01-23 20:00] VITALS: BP 110/62; PULSE 72; RESP 16; TEMP 97.7; O2SAT 98
[2017-01-23] MEDS: REMOVE OLD PATCH T-DERMAL SCH (20:28)
[2017-01-23] MEDS: REMOVE OLD NICODERM (NICOTINE) PATCH TD SCH (20:29)
[2017-01-23] MEDS: MELATONIN 5 MG TAB PO PRN (22:03)
[2017-01-24] MEDS: NIFEdipine 20 MG CAP PO SCH ×3 (05:17→21:35)
[2017-01-24 08:00] VITALS: BP 113/67; PULSE 61; RESP 16; TEMP 96.6; O2SAT 98
--- NOTE | 2017-01-24 08:41 | HHI.PR ---
Subjective Remarks Patient seen and examined today. Patient denies any new complaints. Plans for discharge tomorrow after antibiotics completed. Objective Vitals Vital Signs Date Time Temp Pulse Resp B/P Pulse Ox O2 Delivery O2 Flow Rate FiO2 01/23/17 23:04 16 01/23/17 20:00 97.7 72 16 110/62 98 I/O 01/23/17 01/23/17 01/23/17 01/24/17 01/24/17 01/24/17 07:00 15:00 23:00 07:00 15:00 23:00 Intake Total 240 ml 720 ml 480 ml 480 ml Output Total 250 ml 750 ml 500 ml 600 ml Balance -10 ml -30 ml -20 ml -120 ml Intake Oral 240 ml 720 ml 480 ml 480 ml Output Urine Total 250 ml 750 ml 500 ml 600 ml # Bowel Movements 0 0 0 0 Result Diagram: 01/21/1762901/21/17629 Objective Remarks GENERAL: Well-developed, well-nourished, in no acute distress. somnolent, but orientated HEENT: Head is normocephalic without any lesions or masses noted. Facial features are symmetric. Eyes: Extraocular muscles are intact. Conjunctivae were clear. NECK: Supple without any masses. Trachea midline no deviation. No JVD, CARDIAC: Regular rhythm, regular rate. S1/S2 are heard. No murmurs gallops or rubs. LUNGS: Clear to auscultation bilaterally. No wheeze, rhonchi or rales. No use of accessory muscles on inspiration or expiration. ABDOMEN: Soft, nontender. Nondistended. Bowel sounds heard in all 4 quadrants. No organomegaly or masses. Negative rebound, negative guarding EXTREMITIES: No edema, pulses are equal bilaterally. No cyanosis or clubbing NEUROLOGY: Mood and affect appear appropriate. Cranial nerves II through XII grossly intact. Moving all extremities. Speech is clear Procedures Intubation, extubation L sided VATS, multiple L chest tubes Urinary Catheter: No Date of Removal: Jan 02, 2017 Vascular Central Line Catheter: No A/P Assessment and Plan Altered mental status, lethargy, resolved -CT of the brain was negative - indicates that his friend could have gave him Xanax, and there might be more in the room -Urine drug screen was only positive for opiates, no benzodiazepines -Mentation significantly improved with the decrease in pain medication. Status post fall: -Sustained multiple rib fractures, pelvic fractures with sacral fracture, nondisplaced acetabular fracture, thoracic and lumbar transverse process fractures. -Orthopedics cleared patient. Weightbearing as tolerated right lower extremity , toe-touch weightbearing left lower extremity. -Pain management E force research was performed which did indicate patient was on morphine 60 mg every 8 hours and Lortab 10 every 6 hours. Patient states that he did not take the morphine and only took a Lortab Lortab 5 mg every 6 hours as needed for pain, maintain this dose since patient is now alert and orientated Lidoderm patch to area -PT/OT. Pneumonia/ Left lung empyema: -S/p VATS, thoracotomy and decortication with evacuation of left empyema . -S/P Diflucan IV, Zosyn and Vancomycin. Chest tube removed. -Continue Ertapenem IV (tentative stop date: 01/25/2017 per ID) -Midline in place for antibiotics 01/18/17 -Per ID, weekly CBC with diff, CMP, CRP while on antibiotics to be ordered and followed by hospitalist. -Discussed with infectious disease who indicated that most recent x-ray done on 01/18 show any abnormality other than scarring. Patient has remained afebrile. He has completed 4 weeks of ertapenem, as are the patient is not had any diarrhea in which he has not had a bowel movement last 2 days. Patient is stable to discharge. Can give dose of ertapenem early tomorrow which has been scheduled for 8 AM so he can be discharged after dose completed Urine discoloration: Resolved -Urinalysis was performed which did indicate hematuria. This is likely secondary to indwelling Guillaume catheter removed. -Patient with condom catheter at this time, urine coloration has improved -Try to avoid use of condom catheter -Urine culture shows no growth for 24 hours Metabolic encephalopathy: Resolved. -Head CT was negative for intracranial hemorrhage. -MRI brain negative for any ischemia or acute abnormality. -EEG with no evidence of seizure activity, moderate encephalopathy. Neuro consult appreciated. Ammonia level normal. Possible delirium secondary to sepsis. Improved. He endorsed difficulty swallowing, but was evaluated by speech therapy who recommends regular diet and thin liquids. -PT/ OT. -Continue antibiotics. Respiratory failure: Resolved -Chest x-ray consistent with pulmonary edema. Echo with normal EF 55%. CT chest negative for PE, showed small bilateral pleural effusions and minimal airspace disease. Intubated for altered mental status, successfully extubated. -Continue Lasix, 20 mg po. -Incentive spirometry. EtOH abuse/dependence: -S/P CIWA protocol. Patient went through DTs. Patient was counseled about complete cessation. Unclear what his baseline is. -Minimize sedating medications. -Cessation resources upon discharge. Elevated LFTs, chronic -AST and alkaline phosphatase have been elevated. -Liver US showing normal echotexture of the liver without focal lesion no ductal dilatation. There is heterogeneous pancreatic echotexture with minimal prominence of the pancreatic duct and small bilateral pleural effusions but otherwise negative. -Hepatitis C antibody reactive. Macrocytic anemia: -Secondary to EtOH dependence. Hgb has been decreasing. Consistent with anemia of chronic disease. Stable 8.6. -Thiamine, folate. Hypertension: Low blood pressure this time, adjust medications -Continue Lopressor 50 mg twice a day, Lisinopril 20 mg daily, and Nifedipine 20 mg q8h. -Clonidine and Vasotec as needed. Diarrhea: -12/31: White blood cell count normal. C. difficile test negative. Patient endorses a history of IBS. Imodium ordered. Prophylaxis: Lovenox, SCDs. Discharge Planning Discharge planning per case management. Discharge planning tomorrow after antibiotics completed. Josh Kraft Jan 24, 2017 08:41
[2017-01-24] MEDS ORDERED: OLANZ5 PO (08:44)
[2017-01-24] MEDS: TAMSULOSIN HCL 0.4 MG CAP PO SCH (09:21)
[2017-01-24] MEDS: POTASSIUM CHLORIDE 20 MEQ CONTROLLED RELEASE TAB PO SCH (09:21)
[2017-01-24] MEDS: CALCIUM CARBONATE 500 MG CHEWABLE TAB CHEW SCH ×2 (09:21→21:34)
[2017-01-24] MEDS: ACETAMINOPHEN/HYDROcodone 325 MG/5 MG TAB PO PRN ×3 (09:21→21:39)
[2017-01-24] MEDS: SODIUM CHLORIDE 0.9% FLUSH 5 ML FLUSH IVF SCH ×2 (09:21→21:40)
[2017-01-24] MEDS: METOPROLOL TARTRATE 25 MG TAB PO SCH ×2 (09:21→21:35)
[2017-01-24] MEDS: GABAPENTIN 400 MG CAP PO SCH ×3 (09:22→18:00)
[2017-01-24] MEDS: FAMOTIDINE 20 MG TAB PO SCH ×2 (09:22→21:35)
[2017-01-24] MEDS: NICOTINE 14 MG/24 HR PATCH TD SCH (09:22)
[2017-01-24] MEDS: FOLIC ACID 1 MG TAB PO SCH (09:22)
[2017-01-24] MEDS: DOCUSATE SODIUM 50 MG/SENNA 8.6 MG TAB PO SCH (09:22)
[2017-01-24] MEDS: LIDOCAINE HCL 5% PATCH TD SCH (10:04)
[2017-01-24] MEDS: FUROSEMIDE 20 MG TAB PO SCH (10:05)
[2017-01-24] MEDS: ENOXAPARIN SODIUM 40 MG/0.4 ML SYRINGE SQ SCH (11:13)
[2017-01-24 14:51] VITALS: BP 120/67; PULSE 67; RESP 18; O2SAT 98
[2017-01-24] MEDS: ERTAPENEM INJ 1,000 MG in SODIUM CHLORIDE 0.9% INJ 100 ML IV SCH (15:17)
[2017-01-24 20:00] VITALS: BP 124/66; PULSE 74; RESP 20; TEMP 97.5; O2SAT 98
[2017-01-24] MEDS: REMOVE OLD NICODERM (NICOTINE) PATCH TD SCH (21:00)
[2017-01-24] MEDS: REMOVE OLD PATCH T-DERMAL SCH (21:00)
[2017-01-24] MEDS: MELATONIN 5 MG TAB PO PRN (21:38)
[2017-01-25] MEDS: NIFEdipine 20 MG CAP PO SCH ×2 (05:50→14:00)
[2017-01-25] MEDS ORDERED: FOLI1TAB4 PO (07:44)
[2017-01-25 08:00] VITALS: BP 119/57; PULSE 66; RESP 16; TEMP 97.1; O2SAT 96
[2017-01-25] MEDS ORDERED: ERTAPENEM INJ 1,000 MG in SODIUM CHLORIDE 0.9% INJ 100 ML IV ONE (08:00)
[2017-01-25] MEDS: FOLIC ACID 1 MG TAB PO SCH (08:44)
[2017-01-25] MEDS: METOPROLOL TARTRATE 25 MG TAB PO SCH (08:44)
[2017-01-25] MEDS: GABAPENTIN 400 MG CAP PO SCH ×2 (08:45→12:59)
[2017-01-25] MEDS: CALCIUM CARBONATE 500 MG CHEWABLE TAB CHEW SCH (08:45)
[2017-01-25] MEDS: FAMOTIDINE 20 MG TAB PO SCH (08:45)
[2017-01-25] MEDS: FUROSEMIDE 20 MG TAB PO SCH (08:45)
[2017-01-25] MEDS: TAMSULOSIN HCL 0.4 MG CAP PO SCH (08:45)
[2017-01-25] MEDS: NICOTINE 14 MG/24 HR PATCH TD SCH (08:46)
[2017-01-25] MEDS: POTASSIUM CHLORIDE 20 MEQ CONTROLLED RELEASE TAB PO SCH (08:46)
[2017-01-25] MEDS: DOCUSATE SODIUM 50 MG/SENNA 8.6 MG TAB PO SCH (08:47)
[2017-01-25] MEDS: LIDOCAINE HCL 5% PATCH TD SCH (08:48)
[2017-01-25] MEDS: SODIUM CHLORIDE 0.9% FLUSH 5 ML FLUSH IVF SCH (08:48)
[2017-01-25] MEDS: ACETAMINOPHEN/HYDROcodone 325 MG/5 MG TAB PO PRN (08:59)
[2017-01-25 09:59] VITALS: RESP 18
--- NOTE | 2017-01-25 10:22 | HHI.PR ---
Subjective Remarks Follow-up for empyema, trauma. Patient has no acute complaints overnight. Last antibiotic dose this morning. Objective Vitals Vital Signs Date Time Temp Pulse Resp B/P Pulse Ox O2 Delivery O2 Flow Rate FiO2 01/25/17 08:00 97.1 66 16 119/57 96 01/24/17 22:43 18 01/24/17 20:00 97.5 74 20 124/66 98 01/24/17 14:51 67 18 120/67 98 I/O 01/24/17 01/24/17 01/24/17 01/25/17 01/25/17 01/25/17 07:00 15:00 23:00 07:00 15:00 23:00 Intake Total 480 ml 960 ml 720 ml 60 ml Output Total 600 ml 225 ml 400 ml Balance -120 ml 960 ml 495 ml -340 ml Intake Oral 480 ml 960 ml 720 ml 60 ml Output Urine Total 600 ml 225 ml 400 ml # Voids 4 2 1 # Bowel Movements 0 0 0 Result Diagram: 01/21/1762901/21/17629 Objective Remarks GENERAL: Well-developed patient in no apparent distress. SKIN: Midline RUE. CARDIOVASCULAR: Regular rate and rhythm. RESPIRATORY: No accessory muscle use. CTAB. GASTROINTESTINAL: Abdomen soft, nontender, nondistended. MUSCULOSKELETAL: No lower extremity edema bilaterally. NEUROLOGICAL: Awake and alert. Normal speech. PSYCHIATRIC: Appropriate mood and affect; insight and judgment normal. Procedures Intubation, extubation L sided VATS, multiple L chest tubes Urinary Catheter: No Date of Removal: Jan 02, 2017 Vascular Central Line Catheter: No A/P Problem List: (1) Fall from ladder ICD Code: W11.XXXA Status: Acute (2) Metabolic encephalopathy ICD Code: G93.41 Status: Resolved (3) Hypercapnic respiratory failure ICD Code: J96.92 Status: Resolved (4) Traumatic pneumothorax ICD Code: S27.0XXA Status: Acute (5) Lung contusion ICD Code: S27.329A Status: Acute (6) Multiple rib fractures ICD Code: S22.49XA Status: Acute (7) Fracture of transverse process of thoracic vertebra ICD Code: S22.009A Status: Acute (8) Lumbar transverse process fracture ICD Code: S32.008A Status: Acute (9) Left acetabular fracture ICD Code: S32.402A Status: Acute (10) Bilateral pubic rami fractures ICD Code: S32.591A Status: Acute (11) Sacral fracture, closed ICD Code: S32.10XA Status: Acute (12) HTN (hypertension) ICD Code: I10 Status: Acute (13) EtOH dependence ICD Code: F10.20 Status: Acute Assessment and Plan Altered mental status, lethargy, resolved -CT of the brain was negative - indicates that his friend could have gave him Xanax, and there might be more in the room -Urine drug screen was only positive for opiates, no benzodiazepines -Mentation significantly improved with the decrease in pain medication. Status post fall: -Sustained multiple rib fractures, pelvic fractures with sacral fracture, nondisplaced acetabular fracture, thoracic and lumbar transverse process fractures. -Orthopedics cleared patient. Weightbearing as tolerated right lower extremity , 50% weightbearing left lower extremity. -Pain management E force research was performed which did indicate patient was on morphine 60 mg every 8 hours and Lortab 10 every 6 hours. Patient states that he did not take the morphine and only took a Lortab Lortab 5 mg every 6 hours as needed for pain, maintain this dose since patient is now alert and orientated Lidoderm patch to area -PT/OT. Pneumonia/ Left lung empyema: -S/p VATS, thoracotomy and decortication with evacuation of left empyema . -S/P Diflucan IV, Zosyn and Vancomycin. Chest tube removed. -Continue Ertapenem IV, stop date today. -Midline was placed for antibiotics on 01/18/17 so patient could go to SNF but apparently SNF did not want to accept while on antibiotics. -Per ID, weekly CBC with diff, CMP, CRP while on antibiotics to be ordered and followed by hospitalist. -PA colleague discussed with infectious disease who indicated that most recent x -ray done on 01/18 showed no abnormality other than scarring. Patient has remained afebrile. He has completed 4 weeks of ertapenem. Received last dose of ertapenem this morning. Patient is stable for discharge. Urine discoloration: Resolved -Urinalysis was performed which did indicate hematuria. This is likely secondary to indwelling Guillaume catheter removed. -Patient with condom catheter at this time, urine coloration has improved -Try to avoid use of condom catheter -Urine culture shows no growth for 24 hours Metabolic encephalopathy: Resolved. -Head CT was negative for intracranial hemorrhage. -MRI brain negative for any ischemia or acute abnormality. -EEG with no evidence of seizure activity, moderate encephalopathy. Neuro consult appreciated. Ammonia level normal. Possible delirium secondary to sepsis. Improved. He endorsed difficulty swallowing, but was evaluated by speech therapy who recommends regular diet and thin liquids. -PT/ OT. Respiratory failure: Resolved -Chest x-ray consistent with pulmonary edema. Echo with normal EF 55%. CT chest negative for PE, showed small bilateral pleural effusions and minimal airspace disease. Intubated for altered mental status, successfully extubated. -Continue Lasix, 20 mg po. -Incentive spirometry. EtOH abuse/dependence: -S/P CIWA protocol. Patient went through DTs. Patient was counseled about complete cessation. Unclear what his baseline is. -Minimize sedating medications. -Cessation resources upon discharge. Elevated LFTs, chronic -AST and alkaline phosphatase have been elevated, but improved. -Liver US showing normal echotexture of the liver without focal lesion no ductal dilatation. There is heterogeneous pancreatic echotexture with minimal prominence of the pancreatic duct and small bilateral pleural effusions but otherwise negative. -Hepatitis C antibody reactive. Macrocytic anemia: -Secondary to EtOH dependence. Hgb has been decreasing. Consistent with anemia of chronic disease. Stable 8.6. -Thiamine, folate. Hypertension: -Continue Lopressor 50 mg twice a day, Lisinopril 20 mg daily, and Nifedipine 20 mg q8h. -Clonidine and Vasotec as needed. Diarrhea: -12/31: White blood cell count normal. C. difficile test negative. Patient endorses a history of IBS. Imodium ordered. -01/25: Not had a bowel movement in the last 4 days, but refused Roseanne-colace this morning. Prophylaxis: Lovenox, SCDs. Discharge Planning Antibiotics are complete. I spoke with PT, patient can go home; no indication for rehab. C cannot be established. Discussed with FERNANDO Pelaez. FWW and 3- 1 commode ordered. Prescriptions in chart. Problem Qualifiers (1) Fall from ladder: Qualified Code: W11.XXXA - Fall from ladder, initial encounter (2) Hypercapnic respiratory failure: Qualified Code: J96.02 - Acute respiratory failure with hypercapnia (3) Traumatic pneumothorax: Qualified Code: S27.0XXA - Traumatic pneumothorax, initial encounter (4) Lung contusion: Qualified Code: S27.321A - Contusion of left lung, initial encounter (5) Multiple rib fractures: Qualified Code: S22.42XA - Closed fracture of multiple ribs of left side, initial encounter (6) EtOH dependence: Jazzmine Proctor Jan 25, 2017 10:22 initial encounter (6) EtOH dependence: Jazzmine Proctor Jan 25, 2017 10:22
[2017-01-25] MEDS ORDERED: 3-IN3MIS (10:36)
[2017-01-25] MEDS ORDERED: WALKER WHEELS/F1 MIS (10:36)
[2017-01-25] MEDS ORDERED: HYDR-4107 PO (10:41)
[2017-01-25] MEDS: ENOXAPARIN SODIUM 40 MG/0.4 ML SYRINGE SQ SCH (11:00)
--- NOTE | 2017-01-25 12:45 | HHI.PR ---
Subjective Remarks Follow-up for trauma, empyema. Patient has no acute complaints. Objective Vitals Vital Signs Date Time Temp Pulse Resp B/P Pulse Ox O2 Delivery O2 Flow Rate FiO2 01/25/17 09:59 18 01/25/17 08:00 97.1 66 16 119/57 96 01/24/17 20:00 97.5 74 20 124/66 98 01/24/17 14:51 67 18 120/67 98 I/O 01/24/17 01/24/17 01/24/17 01/25/17 01/25/17 01/25/17 07:00 15:00 23:00 07:00 15:00 23:00 Intake Total 480 ml 960 ml 720 ml 60 ml Output Total 600 ml 225 ml 400 ml Balance -120 ml 960 ml 495 ml -340 ml Intake Oral 480 ml 960 ml 720 ml 60 ml Output Urine Total 600 ml 225 ml 400 ml # Voids 4 2 1 # Bowel Movements 0 0 0 Result Diagram: 01/21/1762901/21/17629 Objective Remarks GENERAL: Well-developed patient in no apparent distress. SKIN: Midline RUE. CARDIOVASCULAR: Regular rate and rhythm. RESPIRATORY: No accessory muscle use. CTAB. GASTROINTESTINAL: Abdomen soft, nontender, nondistended. MUSCULOSKELETAL: No lower extremity edema bilaterally. NEUROLOGICAL: Awake and alert. Normal speech. PSYCHIATRIC: Appropriate mood and affect; insight and judgment normal. Procedures Intubation, extubation L sided VATS, multiple L chest tubes Urinary Catheter: No Date of Removal: Jan 02, 2017 Vascular Central Line Catheter: No A/P Problem List: (1) Fall from ladder ICD Code: W11.XXXA Status: Acute (2) Metabolic encephalopathy ICD Code: G93.41 Status: Resolved (3) Hypercapnic respiratory failure ICD Code: J96.92 Status: Resolved (4) Traumatic pneumothorax ICD Code: S27.0XXA Status: Acute (5) Lung contusion ICD Code: S27.329A Status: Acute (6) Multiple rib fractures ICD Code: S22.49XA Status: Acute (7) Fracture of transverse process of thoracic vertebra ICD Code: S22.009A Status: Acute (8) Lumbar transverse process fracture ICD Code: S32.008A Status: Acute (9) Left acetabular fracture ICD Code: S32.402A Status: Acute (10) Bilateral pubic rami fractures ICD Code: S32.591A Status: Acute (11) Sacral fracture, closed ICD Code: S32.10XA Status: Acute (12) HTN (hypertension) ICD Code: I10 Status: Acute (13) EtOH dependence ICD Code: F10.20 Status: Acute Assessment and Plan Altered mental status, lethargy, resolved -CT of the brain was negative - indicates that his friend could have gave him Xanax, and there might be more in the room -Urine drug screen was only positive for opiates, no benzodiazepines -Mentation significantly improved with the decrease in pain medication. Status post fall: -Sustained multiple rib fractures, pelvic fractures with sacral fracture, nondisplaced acetabular fracture, thoracic and lumbar transverse process fractures. -Orthopedics cleared patient. Weightbearing as tolerated right lower extremity , 50% weightbearing left lower extremity. -Pain management E force research was performed which did indicate patient was on morphine 60 mg every 8 hours and Lortab 10 every 6 hours. Patient states that he did not take the morphine and only took a Lortab Lortab 5 mg every 6 hours as needed for pain, maintain this dose since patient is now alert and orientated Lidoderm patch to area -PT/OT. Pneumonia/ Left lung empyema: -S/p VATS, thoracotomy and decortication with evacuation of left empyema . -S/P Diflucan IV, Zosyn and Vancomycin. Chest tube removed. -Continue Ertapenem IV, stop date today. -Midline was placed for antibiotics on 01/18/17 so patient could go to SNF but apparently SNF did not want to accept while on antibiotics. -Per ID, weekly CBC with diff, CMP, CRP while on antibiotics to be ordered and followed by hospitalist. -PA colleague discussed with infectious disease who indicated that most recent x -ray done on 01/18 showed no abnormality other than scarring. Patient has remained afebrile. He has completed 4 weeks of ertapenem. Received last dose of ertapenem this morning. Patient is stable for discharge. Urine discoloration: Resolved -Urinalysis was performed which did indicate hematuria. This is likely secondary to indwelling Guillaume catheter removed. -Patient with condom catheter at this time, urine coloration has improved -Try to avoid use of condom catheter -Urine culture shows no growth for 24 hours Metabolic encephalopathy: Resolved. -Head CT was negative for intracranial hemorrhage. -MRI brain negative for any ischemia or acute abnormality. -EEG with no evidence of seizure activity, moderate encephalopathy. Neuro consult appreciated. Ammonia level normal. Possible delirium secondary to sepsis. Improved. He endorsed difficulty swallowing, but was evaluated by speech therapy who recommends regular diet and thin liquids. -PT/ OT. Respiratory failure: Resolved -Chest x-ray consistent with pulmonary edema. Echo with normal EF 55%. CT chest negative for PE, showed small bilateral pleural effusions and minimal airspace disease. Intubated for altered mental status, successfully extubated. -Continue Lasix, 20 mg po. -Incentive spirometry. EtOH abuse/dependence: -S/P CIWA protocol. Patient went through DTs. Patient was counseled about complete cessation. Unclear what his baseline is. -Minimize sedating medications. -Cessation resources upon discharge. Elevated LFTs, chronic -AST and alkaline phosphatase have been elevated, but improved. -Liver US showing normal echotexture of the liver without focal lesion no ductal dilatation. There is heterogeneous pancreatic echotexture with minimal prominence of the pancreatic duct and small bilateral pleural effusions but otherwise negative. -Hepatitis C antibody reactive. Macrocytic anemia: -Secondary to EtOH dependence. Hgb has been decreasing. Consistent with anemia of chronic disease. Stable 8.6. -Thiamine, folate. Hypertension: -Continue Lopressor 50 mg twice a day, Lisinopril 20 mg daily, and Nifedipine 20 mg q8h. -Clonidine and Vasotec as needed. Diarrhea: -12/31: White blood cell count normal. C. difficile test negative. Patient endorses a history of IBS. Imodium ordered. -01/25: Not had a bowel movement in the last 4 days, but refused Roseanne-colace this morning. Prophylaxis: Lovenox, SCDs. Discharge Planning Antibiotics are complete. I spoke with PT, patient can go home; no indication for rehab. HHC cannot be established. Discussed with FERNANDO Pelaez. FWW and 3- 1 commode ordered. Prescriptions in chart. Problem Qualifiers (1) Fall from ladder: Qualified Code: W11.XXXA - Fall from ladder, initial encounter (2) Hypercapnic respiratory failure: Qualified Code: J96.02 - Acute respiratory failure with hypercapnia (3) Traumatic pneumothorax: Qualified Code: S27.0XXA - Traumatic pneumothorax, initial encounter (4) Lung contusion: Qualified Code: S27.321A - Contusion of left lung, initial encounter (5) Multiple rib fractures: Qualified Code: S22.42XA - Closed fracture of multiple ribs of left side, initial encounter (6) EtOH dependence: Jazzmine Proctor Jan 25, 2017 12:45
--- NOTE | 2017-01-25 17:56 | HHI.DS ---
Discharge Summary Admission Date Nov 25, 2016 at 20:44 Discharge Date: Jan 25, 2017 Admitting Diagnosis Fall, Traumatic PTX, Pelvic fx (1) Fall from ladder ICD Code: W11.XXXA Diagnosis: Principal (2) Metabolic encephalopathy ICD Code: G93.41 Diagnosis: Principal (3) Hypercapnic respiratory failure ICD Code: J96.92 Diagnosis: Principal (4) Traumatic pneumothorax ICD Code: S27.0XXA Diagnosis: Principal (5) Lung contusion ICD Code: S27.329A Diagnosis: Principal (6) Multiple rib fractures ICD Code: S22.49XA Diagnosis: Principal (7) Fracture of transverse process of thoracic vertebra ICD Code: S22.009A Diagnosis: Principal (8) Lumbar transverse process fracture ICD Code: S32.008A Diagnosis: Principal (9) Left acetabular fracture ICD Code: S32.402A Diagnosis: Principal (10) Bilateral pubic rami fractures ICD Code: S32.591A Diagnosis: Principal (11) Sacral fracture, closed ICD Code: S32.10XA Diagnosis: Principal (12) HTN (hypertension) ICD Code: I10 Diagnosis: Principal (13) EtOH dependence ICD Code: F10.20 Diagnosis: Principal Procedures Intubation, extubation L sided VATS, multiple L chest tubes Brief History - From Admission 58-year-old gentleman reportedly fell 20 feet off of a ladder onto his back without loss of consciousness. He may have been drinking. He was brought in as a trauma alert due to his age and the height of his fall. Patient arrived alert with mild confusion his Hardy Coma Scale was 14 complaining of back pain and left chest pain. Patient had multiple left-sided rib fractures with hemopneumothorax. Chest tube inserted in the trauma bay with x-ray confirming position. Patient also had multiple pelvic fractures with sacral fracture nondisplaced acetabular fracture. Initially managed in critical care, improving clinically and was transferred to medical-surgical floor. Consulted for medical management of EtOH. Injuries Multiple LEFT rib fxs LEFT PTX Tiny LEFT hempPTX (w/ CT LEFT lower lobe contusion (spinal stenosis C6-C7) (Disk protrusion C7-T1- spinal stenosis) LEFT S2-S3 foramen fx (mild displaced) BILAT superior and inferior pubic rami fx (non-op) LEFT sacral Fx (non-op) LEFT acetabulum fx (non-displaced) (non-op) On examination, patient is very confused but able to respond to some questions and commands. Noted with some hallucinations. Ex- at the bedside, states patient is been drinking every day about 10 beers per day. She had actually brought the patient beer and made him drink while patient was laying in bed. As per RN, patient trying to pull out his chest tube, binder in place. On 2 L nasal cannula. Patient just had his nebulizer treatment. Denies pain and discomfort. Denies SOB/ dyspnea, but patient sounded with upper respiratory congestion. Denies chest pain, palpitations, headaches, dizziness. Denies fevers, chills, n/v/d. CBC/BMP: 01/21/17 0630 01/21/17 0630 Imaging Last Impressions Chest X-Ray 01/18/17 0000 Signed Impressions: Service Date/Time: Wednesday, January 18, 2017 13:50 - CONCLUSION: 1. Scarring within the left lung base. 2. Subacute fracture involving the left posterior seventh rib. Jordon Mcknight Jr., MD Pelvis X-Ray 01/17/17 0000 Signed Impressions: Service Date/Time: Tuesday, January 17, 2017 13:13 - CONCLUSION: Fractures as described above. Ralph Garcias MD FACR Head CT 01/05/17 0000 Signed Impressions: Service Date/Time: Thursday, January 05, 2017 16:20 - CONCLUSION: Stable appearance of the brain. No evidence of acute infarct, hemorrhage, mass or edema. Marino Walker MD Liver Ultrasound 12/27/16 0000 Signed Impressions: Service Date/Time: Tuesday, December 27, 2016 20:18 - CONCLUSION: 1. Small bilateral pleural effusions. 2. Heterogeneous pancreatic echotexture with minimal prominence of the pancreatic duct. 3. Otherwise negative. Alexis Bustillo MD Lower Extremity Ultrasound 12/23/16 0000 Signed Impressions: Service Date/Time: December 14:28 - CONCLUSION: Normal examination. Flako Salguero MD CT Angiography 12/22/16 0000 Signed Impressions: Service Date/Time: Thursday, December 22, 2016 16:20 - CONCLUSION: 1. There are no central pulmonary emboli identified. 2. Small bilateral pleural effusions that do not appear to be that complicated. 3. Patchy air-space disease in both lungs. Ralph Garcias MD FACR Brain MRI 12/22/16 0000 Signed Impressions: Service Date/Time: Thursday, December 22, 2016 15:53 - CONCLUSION: No acute disease. Drake Corona MD Shoulder X-Ray 12/13/16 1203 Signed Impressions: Service Date/Time: Tuesday, December 13, 2016 13:51 - CONCLUSION: Rib fractures with a small pleural effusion on the left. There is no evidence of shoulder fracture. Ralph Garcias MD FACR Chest CT 12/03/16 0000 Signed Impressions: Service Date/Time: Saturday, December 03, 2016 21:59 - CONCLUSION: 1. Left chest tube is present with the tip of the chest tube mostly above loculated air and fluid in the left pleural space. Cannot exclude a left-sided empyema. Patchy bronchopneumonia also suspected, right greater than left. Zachery Aquino MD Chest Tube Insertion 11/30/16 0000 Signed Impressions: Service Date/Time: Wednesday, November 30, 2016 09:48 - CONCLUSION: Uncomplicated chest tube placement as above. Drake Corona MD Cervical Spine CT 11/25/161950 Signed Impressions: Service Date/Time: November 20:06 - CONCLUSION: 1. No fracture or subluxation of the cervical spine. 2. Degenerative changes with a chronic appearing disc osteophyte complex and uncovertebral/facet osteoarthritis causing severe spinal and bilateral foraminal stenosis at C6-C7. 3. Small, age-indeterminate posterior disc protrusion at C7/T1 causing mild spinal stenosis. Neel Moyer MD Abdomen/Pelvis CT 11/25/161950 Signed Impressions: Service Date/Time: November 20:10 - CONCLUSION: 1. No evidence of acute visceral or injury. 2. Fractures of the left body and ala of the sacrum with mildly displaced fracturing in the region of the left S2/S3 foramen. 3. Bilateral superior and inferior pubic rami fractures and a nondisplaced fracture of the left acetabulum. 4. Small presacral and left iliopsoas hematomas. I don't see active bleeding. Neel Moyer MD Thoracic Spine CT 11/25/16 0000 Signed Impressions: Service Date/Time: November 20:10 - CONCLUSION: Left T12 transverse process and facet fracture, minimally displaced. Multiple left posterior rib fractures and placed refer to the chest CT report. Thoracic vertebral bodies are intact. No subluxations. Neel Moyer MD Lumbar Spine CT 11/25/16 0000 Signed Impressions: Service Date/Time: November 20:10 - CONCLUSION: 1. Minimally to mildly displaced left transverse process fractures of L1-L4. 2. Multilevel degenerative changes as above. Large right paracentral disc fragment at L4/L5, probably nonacute. Neel Moyer MD PE at Discharge GENERAL: Well-developed patient in no apparent distress. SKIN: Midline RUE. CARDIOVASCULAR: Regular rate and rhythm. RESPIRATORY: No accessory muscle use. CTAB. GASTROINTESTINAL: Abdomen soft, nontender, nondistended. MUSCULOSKELETAL: No lower extremity edema bilaterally. NEUROLOGICAL: Awake and alert. Normal speech. PSYCHIATRIC: Appropriate mood and affect; insight and judgment normal. Hospital Course Patient fell 20 feet off of a ladder from a tree landing on his back. He sustained multiple injuries including LEFT rib fxs, LEFT PTX, Tiny LEFT hemothorax with LEFT lower lobe contusion, LEFT S2-S3 foramen fx (mildly displaced), B/L superior and inferior pubic rami fx (non-op), LEFT sacral Fx ( non-op), and LEFT acetabulum fx (non-displaced) along with thoracic and lumbar transverse process fractures. Chest tube was placed in ED. Initially patient was managed by the critical care service. Patient developed DTs/alcohol withdrawal. Because of this patient pulled and his chest tube and had to undergo a replacement on 11/30/16. The tube was not draining much and there was concern for empyema. ID was consulted. Patient underwent VATS, thoracotomy and decortication with evacuation of left empyema by surgery on 12/05/16. Patient received treatment with antifungal and multiple antibiotics. Chest tube removed. On 12/18/16 patient developed acute respiratory failure. Chest x-ray was obtained consistent with pulmonary edema. Patient was treated with good response to Lasix. 2-D echocardiogram was obtained revealing EF of 55%. On 12/22 patient had worsening respiratory distress overnight and code blue was called. Patient was reevaluated by critical care, transferred to ICU, and intubated and placed on mechanical ventilation. BP dropped due to propofol and central line was placed emergently for possible need for pressors. Chest x-ray done postintubation revealed patchy airspace disease and persistent consolidation over LLL. He was given Lasix but then was hydrated due to fever. Neuro was consulted. Head CT was done which was negative for intracranial hemorrhage. MRI of the brain showed no evidence of ischemia or acute abnormality. EEG showed no evidence of seizure activity but encephalopathy. Patient had elevated LFTs but negative for hepatitis and liver US normal. 12/24 patient was extubated. He was transferred out of ICU back to hospitalist service. Patient was started on 4 weeks of IV ertapenem as fluid culture grew Finegoldia Magna. Patient was transferred to [facility] to continue long-term antibiotics. Patient was tested for C. difficile as he reported diarrhea on 12/31, but it was negative, and patient endorsed history of IBS. Patient also has macrocytic anemia secondary to alcohol use and was continued on thiamine and folic acid. Hypertension was managed. Patient continued physical and occupational therapy. He was followed by Ortho and advised weightbearing as tolerated right lower extremity, 50% weightbearing left lower extremity. Patient continued to be followed by ID while in PO with recommendations to continue his IV ertapenem for 4 week total with a stop date of 01/25. Patient was accepted at [facility] initially and so midline was placed per ID's request so the patient could receive antibiotics only later to find out that the facility did not want to pay for antibiotics and patient remained hospitalized until completion. Final chest x-ray on 01/18 showed only scarring at the left lung base. Patient was cleared by ID to go home after completion of Ertapenem. Rehab was not indicated. C could not be arranged. FWW and 3-1 commode ordered. Prescriptions in chart. Pt Condition on Discharge: Stable Discharge Disposition: Discharge Home Discharge Time: > 30 minutes Discharge Instructions DIET: Follow Instructions for: Heart Healthy Diet Activities you can perform: Shower/Bath, See Additionl Instruction Activities to Avoid: Concussion Sports, Strenuous Activity Other Activity Instructions: Weight bearing as tolerated Right leg. 50% weight bearing Left leg. Use walker when ambulating. Use shower bench when bathing. Follow up Referrals: Orthopedics - 2 Weeks @ [facility] with Geovanny Cooney MD PCP Follow-up - 1 Week New Medications: 3-in-1 Commode (3-in-1 Commode) 1 Mis Mis UNITS #1 Hydrocodone-Acetaminophen (Hydrocodone-Acetaminophen) 5-300 Mg Tab 1 TAB PO Q6H PRN PAIN #12 Ref 0 TAB Walker with Front Wheels (Walker with Front Wheels) 1 Mis Mis 1 EA .ROUTE DIRECTED #1 Ref 0 EA Famotidine (Famotidine) 20 Mg Tab 20 MG PO BID GERD #60 TAB Folic Acid (Folate) 1 Mg Tab 1 MG PO DAILY Nutritional Supplement #30 TAB Furosemide (Furosemide) 20 Mg Tab 20 MG PO DAILY Fluid retention #30 TAB Gabapentin (Neurontin) 400 Mg Cap 400 MG PO TID Pain Days 30 CAP Lidocaine Patch 12 HR (Lidoderm Patch 12 HR) 5% Patch 1 PATCH TD DAILY Pain Management #30 BOX Metoprolol Tartrate (Metoprolol Tartrate) 25 Mg Tab 25 MG PO Q12HR Hypertension #60 TAB Nifedipine (Nifedipine) 20 Mg Cap 20 MG PO Q8HR Hypertension #90 CAP Olanzapine Odt (Zyprexa Zydis) 5 Mg Tab 5 MG PO HS PRN SEE LABEL COMMENTS Days 30 TAB Potassium Chloride Microencaps (Potassium Chloride Microencaps) 20 Meq Tab 40 MEQ PO DAILY Hypokalemia #30 TAB Tamsulosin (Flomax) 0.4 Mg Cap 0.4 MG PO DAILY BPH #30 CAP Continued Medications: Tramadol Hcl (Tramadol Hcl) 50 Mg Tab 50 MG PO Q4HPRN Discontinued Medications: Ciprofloxacin Hcl (Cipro) 500 Mg Tab 500 MG PO BID #28 Cyclobenzaprine Hcl (Flexeril) 10 Mg Tab 10 MG PO TIDPRN Hydrocodone-Acetaminophen (Hydrocodone-Acetaminophen) 10-325 mg Tab 1 TAB PO QID PRN PAIN Ref 0 TAB Hydromorphone Hcl (Dilaudid 2 Mg Tab) 2 Mg Tab 1 - 2 TABS OR Q4HPRN #30 Jazzmine Proctor Jan 25, 2017 17:56
== END 2017-01-25 13:25 | disposition home or self-care (01) | DRG 957 ==
LOC: NEPI 19:49 → NEDA 20:44 → EDBD 20:44 → MERGE 20:44 → N03A 20:57 → N07B 11-26 20:34 → N03B 12-05 11:21 → N03A 12-05 13:48 → N05B 12-07 17:55 → N03A 12-22 08:27 → N06A 12-24 17:10 → PH5A 12-29 17:48
PROVIDERS: ADMIT Surgery; ATTEND Family Medicine
PROC: 0W9B30Z Drainage of Left Pleural Cavity with Drainage Device, Percutaneous Approach (ICD-10-PCS; 2016-11-25)
PROC: 0W9B30Z Drainage of Left Pleural Cavity with Drainage Device, Percutaneous Approach (ICD-10-PCS; 2016-11-30)
PROC: 0BJQ4ZZ Inspection of Pleura, Percutaneous Endoscopic Approach (ICD-10-PCS; 2016-12-05)
PROC: 0BDP0ZZ Extraction of Left Pleura, Open Approach (ICD-10-PCS; principal; 2016-12-05 09:23)
PROC: 0BH18EZ Insertion of Endotracheal Airway into Trachea, Via Natural or Artificial Opening Endoscopic (ICD-10-PCS; 2016-12-22)
PROC: 5A1945Z Respiratory Ventilation, 24-96 Consecutive Hours (ICD-10-PCS; 2016-12-22)
PROC: 05H533Z Insertion of Infusion Device into Right Subclavian Vein, Percutaneous Approach (ICD-10-PCS; 2016-12-22)
DX: S27.2XXA Traumatic hemopneumothorax, initial encounter (principal); S32.402A Unspecified fracture of left acetabulum, initial encounter for closed fracture; J96.02 Acute respiratory failure with hypercapnia; J86.9 Pyothorax without fistula; J69.0 Pneumonitis due to inhalation of food and vomit; G93.41 Metabolic encephalopathy; S22.089A Unspecified fracture of T11-T12 vertebra, initial encounter for closed fracture; E87.3 Alkalosis; S32.019A Unspecified fracture of first lumbar vertebra, initial encounter for closed fracture; F10.231 Alcohol dependence with withdrawal delirium; S32.591A Other specified fracture of right pubis, initial encounter for closed fracture; S32.10XA Unspecified fracture of sacrum, initial encounter for closed fracture; S22.42XA Multiple fractures of ribs, left side, initial encounter for closed fracture; S27.321A Contusion of lung, unilateral, initial encounter; D62 Acute posthemorrhagic anemia; S32.592A Other specified fracture of left pubis, initial encounter for closed fracture; E87.1 Hypo-osmolality and hyponatremia; S32.029A Unspecified fracture of second lumbar vertebra, initial encounter for closed fracture; S32.039A Unspecified fracture of third lumbar vertebra, initial encounter for closed fracture; S32.049A Unspecified fracture of fourth lumbar vertebra, initial encounter for closed fracture; D53.9 Nutritional anemia, unspecified; R31.9 Hematuria, unspecified; R74.8 Abnormal levels of other serum enzymes; K58.0 Irritable bowel syndrome with diarrhea; B96.89 Other specified bacterial agents as the cause of diseases classified elsewhere; I10 Essential (primary) hypertension; B96.20 Unspecified Escherichia coli [E. coli] as the cause of diseases classified elsewhere; G89.29 Other chronic pain; G47.00 Insomnia, unspecified; Z75.1 Person awaiting admission to adequate facility elsewhere; W11.XXXA Fall on and from ladder, initial encounter; F17.210 Nicotine dependence, cigarettes, uncomplicated; Z88.0 Allergy status to penicillin
CPT/HCPCS: 31500; 32551; 32557; 36556; 36569; 36600; 70450; 70551; 71010; 71020; 71260; 71275; 72125; 72128; 72131; 72170; 72190; 73030; 74177; 76705; 76937; 80048; 80053; 80069; 80074; 80202; 80307; 81001; 82140; 82435; 82550; 82565; 82607; 82728; 82746; 82805; 82947; 82948; 83540; 83550; 83605; 83615; 83735; 83880; 84100; 84132; 84145; 84155; 84295; 84484; 84520; 85007; 85025; 85027; 85610; 85652; 85730; 86140; 86850; 86900; 86901; 87015; 87040; 87070; 87076; 87077; 87086; 87102; 87116; 87176; 87185; 87186; 87205; 87206; 87493; 87641; 93005; 93306; 93970; 94002; 94003; 94150; 94640; 94667; 94668; 95819; 96374; 96376; 99152; 99153; 99291; A0431-QM-SH; A0436-QM-SH; C1729; C1769; G0390; J0131; J0171; J0330; J0461; J0610; J1170; J1335; J1450; J1650; J1885; J1940; J1956; J2020; J2060; J2175; J2250; J2270; J2370; J2405; J2543; J2997; J3010; J3370; J3411; J3475; J3480; J7030; J7040; J7050; J7120; Q9967